=== PATIENT | male | born 1975 | race Caucasian/White ===

== ENCOUNTER 2019-05-19 10:07 | Emergency (ER) | payer OTHER, SELFPAY ==
[2019-05-19 10:11] VITALS: BMI 28.1
--- NOTE | 2019-05-19 10:11 | XR_ITS ---
WS: [id number] PORTABLE CHEST HISTORY: cough/congestion COMPARISON: None available. Lungs are clear and well expanded. No pleural effusion or pneumothorax. Cardiac size: Normal. Mediastinum/Aorta: Normal mediastinum. No osseous abnormality seen. XR/XR chest 1V portable [id number] IMPRESSION: Unremarkable portable chest.
[2019-05-19 10:15] VITALS: BP 158/104; PULSE 135; RESP 18; TEMP 37.2; O2SAT 98
--- NOTE | 2019-05-19 10:25 | W.ED.SOB ---
HPI - SOB/Dyspnea General: Chief Complaint: Shortness of Breath/Dyspnea Stated Complaint: FEVER, COUGH, SOB Time Seen by Provider: 05/19/19 10:10 Source: patient Mode of arrival: ambulatory Limitations: no limitations History of Present Illness: HPI Narrative: Patient is a 44-year-old male who presents to ED today with complaints of cough, chest congestion, shortness of breath with exertion over the past 3 to 4 days. Patient states he initially began feeling ill about a week and a half ago with some abdominal pain and diarrhea. He states the abdominal pain is completely subsided. He states diarrhea currently is minimal. He was running low-grade fevers of 100.1. Patient states slowly he began developing a productive cough with white/clear phlegm and shortness of breath with exertion. He has not had any sick contacts. No known travel exposure. Patient does work at [employer] in [place] and has contact exposure frequently. MD elicited complaint: shortness of breath and cough Onset (ago): day(s) Exacerbating factors: exertion Relieving factors: nothing Associated symptoms: Reports chest congestion, fever(s) (100.1 a few days ago) and nausea; Deny abdominal pain, chest pain, extremity pain, hemoptysis, lightheadedness, orthopnea, palpitations, syncope or vomiting Review of Systems General: Reports: 10 or more systems reviewed and unremarkable except in HPI and below Const: Reports: fever (100.1 a few days ago); Denies: chills, body aches, change in appetite, change in weight, fatigue, malaise or night sweats Eyes: Denies: change in vision, blurry vision or photophobia ENMT: Denies: throat pain, enlarged tonsils, painful swallowing, oral sores/lesions, ear pain, nasal discharge, nasal congestion or facial/sinus pain Card: Reports: shortness of breath on exertion; Denies: chest pain, palpitations, irregular heart rhythm, edema, swelling of feet/ankles, lightheadedness, syncope, pre-syncope, shortness of breath when lying down, leg pain with exertion or bluish discoloration of hands/feet Resp: Reports: shortness of breath (only with exertion ), productive cough (white phlegm) and chest congestion; Denies: wheezing, stridor, pain on inspiration or coughing up blood GI: Reports: nausea and diarrhea (improving ); Denies: abdominal pain or vomiting : Denies: flank pain, difficulty urinating, painful urination, urinary frequency, urinary urgency or urinary hesitancy Musc: Denies: neck pain, back pain, extremity pain, extremity swelling, joint pain or joint swelling Skin/Breast: Denies: rash Neuro: Denies: headache, numbness in extremities, weakness in extremities or changes in sensation PFSH ED PFSH: Social History Smoking and tobacco status: current every day smoker Physical Exam Const: COMMON NORMALS: no apparent distress, average body habitus, oriented x3, no limitations, healthy appearing, alert and well nourished HENMT: COMMON NORMALS: normocephalic, head/scalp atraumatic, EAC's normal, TM's normal bilaterally, nasal mucous membranes and turbinates normal and moist oral mucous membranes HEAD & SCALP: normocephalic and atraumatic FACE & SINUS: normal facial exam and sinuses nontender NOSE: nasal mucous membranes and turbinates normal EXTERNAL AUDITORY CANAL: EAC's normal TYMPANIC MEMBRANE: TM's normal bilaterally MOUTH: oral and palatal mucosa normal, lip normal and tongue normal THROAT: tonsils normal, uvula midline and posterior oropharynx abnormal erythema Eye: COMMON NORMALS: PERRL, EOMs intact bilaterally and conjunctivae normal CONJUNCTIVA: Yes conjunctivae normal PUPIL: Yes PERRL Neck/C-Spine: COMMON NORMALS: full ROM, no lymphadenopathy and no meningeal signs Resp: COMMON NORMALS: normal respiratory effort and clear to auscultation bilaterally AUSCULTATION: clear to auscultation bilaterally Cardio: COMMON NORMALS: regular rhythm RATE: tachycardic RHYTHM: regular rhythm GI: COMMON NORMALS: normal to inspection, nondistended, normoactive bowel sounds, soft to palpation, non-tender, no hepatosplenomegaly and no masses PALPATION: Yes soft and Yes no hepatosplenomegaly Extremity: COMMON NORMALS: normal to inspection Neuro: COMMON NORMALS: oriented x3 SENSORIUM/ORIENTATION: Yes alert MENINGEAL SIGNS: Yes no meningeal signs Skin: COMMON NORMALS: no rashes or lesions noted GENERAL SKIN EXAM: no rashes or lesions noted Course Vital Signs: Vital signs: Vital Signs Temperature 98.9 F 05/19/19 10:15 Pulse Rate 114 H 05/19/19 11:36 Respiratory Rate 16 05/19/19 11:36 Blood Pressure 144/88 05/19/19 11:36 Pulse Oximetry 98 05/19/19 11:36 MDM - SOB/Dyspnea MDM Narrative: Medical decision making narrative: Patient clinically appears well. He is not tachypneic and has no signs of labored breathing or respiratory distress. His CXR is normal. Influenza is negative. Labs with some nonspecific findings such as mild thrombocytopenia and elevated LFTs. He does state he has been told previously he has elevated LFTs. Patient is an everyday drinker. He elicits no abdominal tenderness on exam. These findings can also be seen with COVID-19. Patient was tested for this. He is already taking [facility]. at this time I do not see any indication for additional treatment. He has been tachycardic throughout his stay however this has improved with rest and fluids. Patient's Well Score is at low risk for PE. Strict return to ED precautions given. Discussed wearing a mask and self quarantine. Lab Data: Labs: Lab Results 05/19/19 05/19/19 05/19/19 Range/Units 10:16 10:20 10:20 WBC 10.3 H (4.0-10.0) 10^3/ uL RBC 4.51 (4.1-5.3) 10^6/u L Hgb 15.8 (11.7-16.6) g/dL Hct 47.2 (42.0-52.0) % MCV 104.7 H (80-94) fL MCH 35.0 H (28.0-34.0) pg MCHC 33.5 (30.0-36.0) g/dL RDW 14.7 (12.1-15.1) % Plt Count 101 L (130-400) 10^3/c mm MPV 10.0 (7.4-10.4) fL Neut % (Auto) 66.0 % Lymph % (Auto) 21.0 % Davison % (Auto) 10.6 % Eos % (Auto) 1.2 % Baso % (Auto) 0.8 % Neut # (Auto) 6.8 (1.8-7.7) 10^3/u L Lymph # (Auto) 2.2 (0.8-4.8) 10^3/u L Davison # (Auto) 1.1 H (0.2-0.9) 10^3/u L Eos # (Auto) 0.1 (0.0-0.8) 10^3/u L Baso # (Auto) 0.1 (0.0-0.1) 10^3/u L Nucleated RBC % (a uto) 0 % Nucleated RBCs # 0.0 /100WBC Sodium 139 (136-145) mmol/L Potassium 3.2 L (3.5-5.1) mmol/L Chloride 98 (98-107) mmol/L Carbon Dioxide 24 (22-29) mmol/L Anion Gap 20.2 H (5-19) BUN 3 L (6-20) mg/dL Creatinine 1.0 (0.7-1.2) mg/dL GFR Calculation 80.8 L (90-130) mL/min Glucose 119 H (65-115) mg/dL Calculated Osmolal ity 285 (285-295) mOsm/k g Calcium 9.4 (8.5-10.5) mg/dL Total Bilirubin 1.6 H (0.15-1.2) mg/dL AST 107 H (0-40) U/L ALT 50 H (0-41) U/L Alkaline Phosphata se 136 H (40-130) IU/L Total Protein 8.3 (6.6-8.7) g/dL Albumin 4.5 (3.5-5.2) g/dL Globulin 3.8 (1.3-4.6) g/dL Influenza Type A A g Negative (Negative) POC Influenza B Ag Negative (Negative) Imaging Data^: CXR: Radiologist's impression: [address] [address] XRay Report Signed Patient: Chase Rivero Unit #: [id number] : 1975 Age/Sex: 44 / M ADM Date: 05/19/19 Loc: ER Room/Bed: Attending Dr: Ordering Provider/Ordering MD: Opal Hanks Date of Service: 05/19/19 Procedure(s): XR chest 1V portable [id number] Accession Number(s): [id number] Report Number: [id number] WS: [id number] PORTABLE CHEST HISTORY: cough/congestion COMPARISON: None available. Lungs are clear and well expanded. No pleural effusion or pneumothorax. Cardiac size: Normal. Mediastinum/Aorta: Normal mediastinum. No osseous abnormality seen. XR/XR chest 1V portable [id number] IMPRESSION: Unremarkable portable chest. Dictated By: Kassie Montenegro DO Signed By: Kassie Montenegro DO Signed Date/Time: 05/19/19 1034 DD/ 1034 Discharge Plan Discharge Patient Disposition: Home, Self-Care Clinical Impression: Viral upper respiratory tract infection Condition: Stable Discharge Orders: Discharge Order (Routine); Ordered 05/19/19 Ordered By: Opal Hanks Referrals: Sherron Lewis APN [Family Provider] - Discharge Diet: Usual diet Discharge Activity: Increase activity as tolerated Patient Instructions: Upper Respiratory Infection (ED), Viral Syndrome (ED), Upper Respiratory Infection - Adult Activity Restrictions/Additional Instructions: 1) Push fluids at home. Water and/or Gatorade/Powerade to stay hydrated 2) Use Tylenol as needed for body aches/fevers 3) Rest/don't exert yourself if you feel short of breath 4) Contact C nurse line or return to ED for worsening shortness of breath, difficulty breathing, or any other concerns you may have. 5) SELF QUARANTINE at home for another week. WEAR A MASK IF YOU ABSOLUTELY MUST GO IN PUBLIC. Stand Alone Forms: Work/School Release Discharge Date/Time: 05/19/19 11:37 Coding Level of Care Code ED Toe Puller for Chg Fwd Exam Comprehensive
[2019-05-19 10:29] LABS: Basophils # 0.1 10^3/uL (0.0-0.1); Basophils % 0.8 %; Eosinophils # 0.1 10^3/uL (0.0-0.8); Eosinophils % 1.2 %; Hematocrit 47.2 % (42.0-52.0); Hemoglobin 15.8 g/dL (11.7-16.6); Lymphocytes # 2.2 10^3/uL (0.8-4.8); Mean Corpuscular HGB Conc 33.5 g/dL (30.0-36.0); Mean Corpuscular Volume 104.7 fL (80-94); Monocytes # 1.1 10^3/uL (0.2-0.9); Monocytes % 10.6 %; Neutrophils # 6.8 10^3/uL (1.8-7.7); Nucleated Red Blood Cells % 0 %; Platelet Count 101 10^3/cmm (130-400); Red Blood Count 4.51 10^6/uL (4.1-5.3); Red Cell Distribution Width 14.7 % (12.1-15.1); White Blood Count 10.3 10^3/uL (4.0-10.0)
[2019-05-19] MEDS: sodium chloride 0.9% 1,000 ML 999 ML IV (10:33)
--- NOTE | 2019-05-19 10:45 | ECG_ITS ---
Measurements Intervals [place] Rate: 107 P: 44 VA: 160 QRS: -19 QRSD: 97 T: 30 QT: 334 QTc: 446 SINUS TACHYCARDIA No previous ECG available for comparison Electronically Signed On 05-19-2019 18:32:44 CDT by Alexandra De Santiago M.D. [email or web address]
[2019-05-19 10:46] LABS: Alanine Aminotransferase 50 U/L (0-41); Albumin Level 4.5 g/dL (3.5-5.2); Alkaline Phosphatase 136 IU/L (40-130); Anion Gap 20.2 (5-19); Aspartate Amino Transferase 107 U/L (0-40); Blood Urea Nitrogen 3 mg/dL (6-20); Calcium 9.4 mg/dL (8.5-10.5); Carbon Dioxide 24 mmol/L (22-29); Chloride 98 mmol/L (98-107); Creatinine Clr Calc Pharmacy 98.4385; Globulin 3.8 g/dL (1.3-4.6); Glomerular Filtration Rate 80.8 mL/min (90-130); Glucose 119 mg/dL (65-115); Osmolality Calculated 285 mOsm/kg (285-295); Potassium 3.2 mmol/L (3.5-5.1); Sodium 139 mmol/L (136-145); Total Bilirubin 1.6 mg/dL (0.15-1.2); Total Protein 8.3 g/dL (6.6-8.7)
[2019-05-19 10:51] LABS: Influenza A by IFA Negative (Negative); Influenza B by IFA Negative (Negative)
--- NOTE | 2019-05-19 11:09 | PC.NURSE ---
Covid-19 swab collected and sent to lab.
[2019-05-19 11:36] VITALS: BP 144/88; PULSE 114; RESP 16; O2SAT 98
[2019-05-21 11:06] LABS: Coronavirus Overall Results NOT DETECTED
== END 2019-05-19 11:37 | disposition home or self-care (01) ==
PROVIDERS: Emergency Provider Physician Assistant; Family Provider Nurse Practitioner Family
DX: J06.9 Acute upper respiratory infection, unspecified (principal); F17.200 Nicotine dependence, unspecified, uncomplicated
CPT/HCPCS: 12345; 36415; 71045; 80053; 85025; 87635; 87804; 93005; 96360; 99282; 99283; J7030

== ENCOUNTER 2019-05-24 22:52 | Inpatient (IN) | payer OTHER, SELFPAY ==
[2019-05-24 23:14] VITALS: BP 146/92; PULSE 140; RESP 22; TEMP 37.3; O2SAT 98; BMI 28.5
--- NOTE | 2019-05-24 23:26 | ED_ITS ---
Documented by User: SHAKIRA Chiu 05/25/19 00:42 HPI - Abdominal Pain General: Chief Complaint: Abdominal Pain Stated Complaint: n/v/d Time Seen by Provider: 05/24/19 23:14 History of Present Illness: HPI narrative: Patient is a 44-year-old male who comes to the ED with abdominal pain, nausea, vomiting and diarrhea. All symptoms started around 11 AM this morning. He denies eating anything in the morning that caused symptoms. He has been having multiple episodes of vomiting and diarrhea since onset. Abdominal pain is all throughout his abdomen and he rates it a 5 out of 10. Frequently the abdominal pain has moments where it becomes more intense during that time he says it is around a 7 or 8 out of 10. Diarrhea is greenish-brown colored. He described his emesis color as brown. Denies any past abdominal surgeries, fevers, chills, blood in the stool or blood in the emesis. Patient states he has a mild headache. He has not been able to eat or drink anything all day. Patient also says he has been burping a lot today. Associated Symptoms: Reports belching, diarrhea, nausea and vomiting; Denies chills, constipation, dysuria, fever(s), hematochezia and hematuria Review of Systems Const: Denies: fever, chills or fatigue Eyes: Denies: change in vision or eye discomfort ENMT: Denies: throat pain, painful swallowing, nasal discharge or nasal congestion Card: Denies: chest pain, palpitations, edema, swelling of feet/ankles, shortness of breath on exertion or shortness of breath when lying down Resp: Denies: shortness of breath, productive cough or non-productive cough GI: Reports: abdominal pain, nausea, vomiting, diarrhea and belching; Denies: constipation or blood in stool : Denies: flank pain, difficulty urinating, painful urination or blood in urine Musc: Denies: neck pain, back pain or extremity swelling Skin/Breast: Denies: rash or new lesion Neuro: Reports: headache; Denies: numbness in extremities or weakness in extremities PFS ED PFSH: Social History Smoking and tobacco status: current every day smoker Physical Exam Narrative: EXAM NARRATIVE: Patient is lying on the exam bed when I enter the room. He appears to be in some pain and discomfort. Const: COMMON NORMALS: oriented x3 HENMT: COMMON NORMALS: normocephalic HEAD & SCALP: normocephalic MOUTH: oral and palatal mucosa normal THROAT: posterior oropharynx normal and uvula midline Neck/C-Spine: COMMON NORMALS: supple GENERAL: Yes normal visual inspection Resp: COMMON NORMALS: normal respiratory effort, no retractions, no use of accessory muscles and clear to auscultation bilaterally EFFORT & INSPECTION: Yes able to speak in complete sentences, No respiratory distress and No labored AUSCULTATION: clear to auscultation bilaterally Cardio: COMMON NORMALS: regular rhythm, S1 normal heart sound, S2 normal heart sound, no gallops, no clicks, no murmurs and peripheral pulses 2+ throughout RATE: tachycardic RHYTHM: regular rhythm HEART SOUNDS: S1 normal and S2 normal PERIPHERAL PULSES: pulses 2+ throughout GI: COMMON NORMALS: normal to inspection, nondistended, normoactive bowel sounds, soft to palpation and no masses AUSCULTATION: Yes normoactive bowel sounds PALPATION: Yes soft, Yes tender (throughout the abdomen- moderate tenderness) and No rebound tenderness present : BLADDER/KIDNEY EXAM: Yes CVA tenderness bilateral Back/Pelvis: GENERAL BACK: Yes CVA tenderness Extremity: COMMON NORMALS: normal to inspection and normal capillary refill Neuro: COMMON NORMALS: oriented x3 GAIT: Yes normal gait Skin: COMMON NORMALS: no rashes or lesions noted GENERAL SKIN EXAM: no rashes or lesions noted and dry skin Course Vital Signs: Vital signs: Vital Signs Temperature 99.1 F 05/24/19 23:14 Pulse Rate 138 H 05/25/19 00:40 Respiratory Rate 17 05/25/19 01:24 Blood Pressure 128/86 05/25/19 00:40 Pulse Oximetry 98 05/25/19 01:24 MDM - Abdominal Pain Lab Data: Attestation: I reviewed the patient's lab results. Labs: Lab Results 05/24/19 05/24/19 05/24/19 Range/Units 23:27 23:47 23:55 WBC 14.0 H (4.0-10.0) 10^3/ uL RBC 3.94 L (4.1-5.3) 10^6/u L Hgb 14.1 (11.7-16.6) g/dL Hct 41.0 L (42.0-52.0) % MCV 104.1 H (80-94) fL MCH 35.8 H (28.0-34.0) pg MCHC 34.4 (30.0-36.0) g/dL RDW 15.8 H (12.1-15.1) % Plt Count 87 L (130-400) 10^3/c mm MPV 11.4 H (7.4-10.4) fL Neut % (Auto) 76.3 % Lymph % (Auto) 11.8 % [place] % (Auto) 11.1 % Eos % (Auto) 0.1 % Baso % (Auto) 0.2 % Neut # (Auto) 10.7 H (1.8-7.7) 10^3/u L Lymph # (Auto) 1.6 (0.8-4.8) 10^3/u L [place] # (Auto) 1.6 H (0.2-0.9) 10^3/u L Eos # (Auto) 0.0 (0.0-0.8) 10^3/u L Baso # (Auto) 0.0 (0.0-0.1) 10^3/u L Nucleated RBC % (a uto) 0 % Nucleated RBCs # 0.0 /100WBC Sodium (136-145) mmol/L Potassium (3.5-5.1) mmol/L Chloride (98-107) mmol/L Carbon Dioxide (22-29) mmol/L Anion Gap (5-19) BUN (6-20) mg/dL Creatinine (0.7-1.2) mg/dL GFR Calculation (90-130) mL/min Glucose (65-115) mg/dL Calculated Osmolal ity (285-295) mOsm/k g Lactate 4.7 H* (0.5-2.2) mmol/L Calcium (8.5-10.5) mg/dL Total Bilirubin (0.15-1.2) mg/dL AST (0-40) U/L ALT (0-41) U/L Alkaline Phosphata se (40-130) IU/L Total Protein (6.6-8.7) g/dL Albumin (3.5-5.2) g/dL Globulin (1.3-4.6) g/dL Lipase (13-60) U/L Urine Color Yellow (Yellow) Urine Appearance Cloudy (CLEAR) Urine pH 5 (5-7) Ur Specific Gravit y 1.020 (1.005-1.030) Urine Protein Trace (Negative) Urine Glucose (UA) Trace H (Normal) Urine Ketones 1+ H (Negative) Urine Blood 2+ H (Negative) Urine Nitrate Negative (Negative) Urine Bilirubin Neg (NEGATIVE) Urine Urobilinogen Norm (Negative) mg/dL Ur Leukocyte Phoebe ase Negative (Negative) Urine RBC 0-4 H (0-2) /hpf Urine WBC 0-4 H (0-5) /hpf Ur Squamous Epith Cells 0-4 H (0-5) Urine Bacteria 1+ H (NONE) Urine Mucus 2+ 04/07/08 Range/Units 00:12 WBC (4.0-10.0) 10^3/ uL RBC (4.1-5.3) 10^6/u L Hgb (11.7-16.6) g/dL Hct (42.0-52.0) % MCV (80-94) fL MCH (28.0-34.0) pg MCHC (30.0-36.0) g/dL RDW (12.1-15.1) % Plt Count (130-400) 10^3/c mm MPV (7.4-10.4) fL Neut % (Auto) % Lymph % (Auto) % [place] % (Auto) % Eos % (Auto) % Baso % (Auto) % Neut # (Auto) (1.8-7.7) 10^3/u L Lymph # (Auto) (0.8-4.8) 10^3/u L [place] # (Auto) (0.2-0.9) 10^3/u L Eos # (Auto) (0.0-0.8) 10^3/u L Baso # (Auto) (0.0-0.1) 10^3/u L Nucleated RBC % (a uto) % Nucleated RBCs # /100WBC Sodium 137 (136-145) mmol/L Potassium 3.3 L (3.5-5.1) mmol/L Chloride 93 L (98-107) mmol/L Carbon Dioxide 28 (22-29) mmol/L Anion Gap 19.3 H (5-19) BUN 13 (6-20) mg/dL Creatinine 1.1 (0.7-1.2) mg/dL GFR Calculation 72.4 L (90-130) mL/min Glucose 124 H (65-115) mg/dL Calculated Osmolal ity 282 L (285-295) mOsm/k g Lactate (0.5-2.2) mmol/L Calcium 8.8 (8.5-10.5) mg/dL Total Bilirubin 3.7 H (0.15-1.2) mg/dL AST 93 H (0-40) U/L ALT 44 H (0-41) U/L Alkaline Phosphata se 121 (40-130) IU/L Total Protein 6.6 (6.6-8.7) g/dL Albumin 3.6 (3.5-5.2) g/dL Globulin 3.0 (1.3-4.6) g/dL Lipase 33 (13-60) U/L Urine Color (Yellow) Urine Appearance (CLEAR) Urine pH (5-7) Ur Specific Gravit y (1.005-1.030) Urine Protein (Negative) Urine Glucose (UA) (Normal) Urine Ketones (Negative) Urine Blood (Negative) Urine Nitrate (Negative) Urine Bilirubin (NEGATIVE) Urine Urobilinogen (Negative) mg/dL Ur Leukocyte Phoebe ase (Negative) Urine RBC (0-2) /hpf Urine WBC (0-5) /hpf Ur Squamous Epith Cells (0-5) Urine Bacteria (NONE) Urine Mucus Imaging Data ^: CT Abd/Pel: Attestation: I personally reviewed and interpreted this imaging study as follows: Radiologist's impression: [facility] [address] [address] [address] Scan Report Signed Patient: Chase Rivero Unit #: [id number] : 1975 Age/Sex: 44 / M ADM Date: 05/24/19 Loc: ER Room/Bed: Attending Dr: Ordering Provider/Ordering MD: Jamir Lindsay Date of Service: 05/24/19 Procedure(s): CT abdomen pelvis w con* [id number] Accession Number(s): [id number] Report Number: [id number] PROCEDURE INFORMATION: Exam: CT Abdomen And Pelvis With Contrast Exam date and time: 05/24/2019 11:45 PM Age: 44 years old Clinical indication: Nausea and vomiting; Abdominal pain; Generalized; Additional info: Abdom pain, n/v and diarrhea TECHNIQUE: Imaging protocol: Computed tomography of the abdomen and pelvis with intravenous contrast. Total DLP: 950.42 mGy-cm Radiation optimization: All CT scans at this facility use at least one of these dose optimization techniques: automated exposure control; mA and/or kV adjustment per patient size (includes targeted exams where dose is matched to clinical indication); or iterative reconstruction. Contrast material: OMNI 300; Contrast volume: 95 ml; Contrast route: IV; COMPARISON: CT abdomen pelvis w con* [id number] 06/08/2016 8:45 AM FINDINGS: Lungs: The lung bases are clear. Liver: There is fatty infiltration of the liver. Somewhat inhomogeneous enhancement of the liver. This could be related to the fatty infiltration. Hepatitis or other etiologies not excluded. Gallbladder and bile ducts: Mild gallbladder wall thickening/edema. No visible gallstones by CT. Ultrasound could be more sensitive for detecting gallstones, if clinically needed. No biliary tree dilation. Pancreas: Unremarkable. Spleen: Unremarkable. Adrenals: Unremarkable. Kidneys and ureters: Relatively small left kidney, not significantly changed. No hydronephrosis of either kidney. No visible ureteral calculus. Stomach and bowel: Mild to moderate diffuse mucosal/wall thickening involving essentially the entire colon. Mild pericolonic edema/inflammation. Suspect mild involvement of the terminal ileum as well. Some other small bowel loops may have some mucosal thickening, although this could be a transient appearance on CT. While nonspecific, this appearance is likely secondary to some form of colitis/enteritis, including infectious, ulcerative, Crohn's, and pseudomembranous colitis. There are no CT findings to strongly suggest diverticulitis. Possibility of slightly thickened mucosa/wall in the distal antrum of the stomach. This is a nonspecific appearance, and could be transient on CT, but could also represent evidence for gastritis or peptic ulcer disease. Please correlate clinically. Appendix: The appendix is visualized and appears normal. Intraperitoneal space: No free air, ascites, or bowel distention. Vasculature: No evidence for abdominal aortic aneurysm. Lymph nodes: No retroperitoneal adenopathy. Bladder: [id number] diffuse urinary bladder wall thickening. This may be related to the prostate enlargement. While nonspecific, this could also indicate evidence for cystitis. Please correlate clinically. Reproductive: Prostate enlargement with transverse diameter of 4.2 cm. Bones/joints: Moderate degenerative disc changes at L5-S1, similar to prior exam. Soft tissues: No significant acute finding. CT/CT abdomen pelvis w con* [id number] IMPRESSION: 1. Findings compatible with diffuse colitis, see additional details/discussion above. 2. No free air or significant bowel distention. 3. Possible thickened mucosa/wall in the distal stomach, see above discussion. 4. Mild gallbladder wall thickening/edema, no visible gallstones by CT. 5. Normal appendix. 6. Prostate enlargement and urinary bladder wall thickening, see above. 7. Other findings discussed above. Radiation Dose CTDIVOL = (mGy): DLP = 950.42 (mGy-cm) Dictated By: Edu Barrera MD Signed By: Edu Barrera MD Signed Date/Time: 05/25/1937 DD/ Discharge Plan Discharge Prescriptions: No Action No Known Home Medications RF: 0 Coding Level of Care Code ED Fuse Cup Expander for Chg Fwd Exam Comprehensive Documented by User: Danilo Mason DO 05/25/19 03:02 HPI - Abdominal Pain General: Chief Complaint: Abdominal Pain Stated Complaint: n/v/d Time Seen by Provider: 05/24/19 23:14 PFSH ED PFSH: Social History Smoking and tobacco status: current every day smoker Course Vital Signs: Vital signs: Vital Signs Temperature 99.1 F 05/24/19 23:14 Pulse Rate 138 H 05/25/19 00:40 Respiratory Rate 17 05/25/19 01:24 Blood Pressure 128/86 05/25/19 00:40 Pulse Oximetry 98 05/25/19 01:24 MDM - Abdominal Pain MDM Narrative: Medical decision making narrative: 44-year-old male checked out to me by Mr. Neftali PA-C. I agree with his history, evaluation, and initial work-up. This patient has right sided belly pain, vomiting, and diarrhea. CT scan showed some gallbladder wall thickening as well as a colitis. Ultrasound shows no common bile duct dilatation, but gallbladder wall edema with some sludge. His bilirubin is 3.7. He has mild elevation of his transaminases. His white blood cell count is 14. He will be treated for acute cholecystitis, colitis, and sepsis. He is received a fluid bolus here. He is also received ciprofloxacin and Flagyl IV. He will be placed on Zosyn for the floor. Lab Data: Labs: Lab Results 05/24/19 05/24/19 05/24/19 Range/Units 23:27 23:47 23:55 WBC 14.0 H (4.0-10.0) 10^3/ uL RBC 3.94 L (4.1-5.3) 10^6/u L Hgb 14.1 (11.7-16.6) g/dL Hct 41.0 L (42.0-52.0) % MCV 104.1 H (80-94) fL MCH 35.8 H (28.0-34.0) pg MCHC 34.4 (30.0-36.0) g/dL RDW 15.8 H (12.1-15.1) % Plt Count 87 L (130-400) 10^3/c mm MPV 11.4 H (7.4-10.4) fL Neut % (Auto) 76.3 % Lymph % (Auto) 11.8 % [place] % (Auto) 11.1 % Eos % (Auto) 0.1 % Baso % (Auto) 0.2 % Neut # (Auto) 10.7 H (1.8-7.7) 10^3/u L Lymph # (Auto) 1.6 (0.8-4.8) 10^3/u L [place] # (Auto) 1.6 H (0.2-0.9) 10^3/u L Eos # (Auto) 0.0 (0.0-0.8) 10^3/u L Baso # (Auto) 0.0 (0.0-0.1) 10^3/u L Nucleated RBC % (a uto) 0 % Nucleated RBCs # 0.0 /100WBC Sodium (136-145) mmol/L Potassium (3.5-5.1) mmol/L Chloride (98-107) mmol/L Carbon Dioxide (22-29) mmol/L Anion Gap (5-19) BUN (6-20) mg/dL Creatinine (0.7-1.2) mg/dL GFR Calculation (90-130) mL/min Glucose (65-115) mg/dL Calculated Osmolal ity (285-295) mOsm/k g Lactate 4.7 H* (0.5-2.2) mmol/L Calcium (8.5-10.5) mg/dL Total Bilirubin (0.15-1.2) mg/dL AST (0-40) U/L ALT (0-41) U/L Alkaline Phosphata se (40-130) IU/L Total Protein (6.6-8.7) g/dL Albumin (3.5-5.2) g/dL Globulin (1.3-4.6) g/dL Lipase (13-60) U/L Urine Color Yellow (Yellow) Urine Appearance Cloudy (CLEAR) Urine pH 5 (5-7) Ur Specific Gravit y 1.020 (1.005-1.030) Urine Protein Trace (Negative) Urine Glucose (UA) Trace H (Normal) Urine Ketones 1+ H (Negative) Urine Blood 2+ H (Negative) Urine Nitrate Negative (Negative) Urine Bilirubin Neg (NEGATIVE) Urine Urobilinogen Norm (Negative) mg/dL Ur Leukocyte Phoebe ase Negative (Negative) Urine RBC 0-4 H (0-2) /hpf Urine WBC 0-4 H (0-5) /hpf Ur Squamous Epith Cells 0-4 H (0-5) Urine Bacteria 1+ H (NONE) Urine Mucus 2+ 04/05/20 Range/Units 00:12 WBC (4.0-10.0) 10^3/ uL RBC (4.1-5.3) 10^6/u L Hgb (11.7-16.6) g/dL Hct (42.0-52.0) % MCV (80-94) fL MCH (28.0-34.0) pg MCHC (30.0-36.0) g/dL RDW (12.1-15.1) % Plt Count (130-400) 10^3/c mm MPV (7.4-10.4) fL Neut % (Auto) % Lymph % (Auto) % [place] % (Auto) % Eos % (Auto) % Baso % (Auto) % Neut # (Auto) (1.8-7.7) 10^3/u L Lymph # (Auto) (0.8-4.8) 10^3/u L [place] # (Auto) (0.2-0.9) 10^3/u L Eos # (Auto) (0.0-0.8) 10^3/u L Baso # (Auto) (0.0-0.1) 10^3/u L Nucleated RBC % (a uto) % Nucleated RBCs # /100WBC Sodium 137 (136-145) mmol/L Potassium 3.3 L (3.5-5.1) mmol/L Chloride 93 L (98-107) mmol/L Carbon Dioxide 28 (22-29) mmol/L Anion Gap 19.3 H (5-19) BUN 13 (6-20) mg/dL Creatinine 1.1 (0.7-1.2) mg/dL GFR Calculation 72.4 L (90-130) mL/min Glucose 124 H (65-115) mg/dL Calculated Osmolal ity 282 L (285-295) mOsm/k g Lactate (0.5-2.2) mmol/L Calcium 8.8 (8.5-10.5) mg/dL Total Bilirubin 3.7 H (0.15-1.2) mg/dL AST 93 H (0-40) U/L ALT 44 H (0-41) U/L Alkaline Phosphata se 121 (40-130) IU/L Total Protein 6.6 (6.6-8.7) g/dL Albumin 3.6 (3.5-5.2) g/dL Globulin 3.0 (1.3-4.6) g/dL Lipase 33 (13-60) U/L Urine Color (Yellow) Urine Appearance (CLEAR) Urine pH (5-7) Ur Specific Gravit y (1.005-1.030) Urine Protein (Negative) Urine Glucose (UA) (Normal) Urine Ketones (Negative) Urine Blood (Negative) Urine Nitrate (Negative) Urine Bilirubin (NEGATIVE) Urine Urobilinogen (Negative) mg/dL Ur Leukocyte Phoebe ase (Negative) Urine RBC (0-2) /hpf Urine WBC (0-5) /hpf Ur Squamous Epith Cells (0-5) Urine Bacteria (NONE) Urine Mucus Discharge Plan Discharge Prescriptions: No Action No Known Home Medications RF: 0 Coding Level of Care Code ED Fuse Cup Expander for Chg Fwd Exam Comprehensive
[2019-05-24] MEDS: ondansetron 2 mg/ML SDV 2 mL 4 MG IVP (23:32)
[2019-05-24] MEDS: sodium chloride 0.9% 1,000 ML 999 ML IV (23:33)
--- NOTE | 2019-05-24 23:43 | CTR_ITS ---
PROCEDURE INFORMATION: Exam: CT Abdomen And Pelvis With Contrast Exam date and time: 05/24/2019 11:45 PM Age: 44 years old Clinical indication: Nausea and vomiting; Abdominal pain; Generalized; Additional info: Abdom pain, n/v and diarrhea TECHNIQUE: Imaging protocol: Computed tomography of the abdomen and pelvis with intravenous contrast. Total DLP: 950.42 mGy-cm Radiation optimization: All CT scans at this facility use at least one of these dose optimization techniques: automated exposure control; mA and/or kV adjustment per patient size (includes targeted exams where dose is matched to clinical indication); or iterative reconstruction. Contrast material: OMNI 300; Contrast volume: 95 ml; Contrast route: IV; COMPARISON: CT abdomen pelvis w con* [id number] 06/08/2016 8:45 AM FINDINGS: Lungs: The lung bases are clear. Liver: There is fatty infiltration of the liver. Somewhat inhomogeneous enhancement of the liver. This could be related to the fatty infiltration. Hepatitis or other etiologies not excluded. Gallbladder and bile ducts: Mild gallbladder wall thickening/edema. No visible gallstones by CT. Ultrasound could be more sensitive for detecting gallstones, if clinically needed. No biliary tree dilation. Pancreas: Unremarkable. Spleen: Unremarkable. Adrenals: Unremarkable. Kidneys and ureters: Relatively small left kidney, not significantly changed. No hydronephrosis of either kidney. No visible ureteral calculus. Stomach and bowel: Mild to moderate diffuse mucosal/wall thickening involving essentially the entire colon. Mild pericolonic edema/inflammation. Suspect mild involvement of the terminal ileum as well. Some other small bowel loops may have some mucosal thickening, although this could be a transient appearance on CT. While nonspecific, this appearance is likely secondary to some form of colitis/enteritis, including infectious, ulcerative, Crohn's, and pseudomembranous colitis. There are no CT findings to strongly suggest diverticulitis. Possibility of slightly thickened mucosa/wall in the distal antrum of the stomach. This is a nonspecific appearance, and could be transient on CT, but could also represent evidence for gastritis or peptic ulcer disease. Please correlate clinically. Appendix: The appendix is visualized and appears normal. Intraperitoneal space: No free air, ascites, or bowel distention. Vasculature: No evidence for abdominal aortic aneurysm. Lymph nodes: No retroperitoneal adenopathy. Bladder: [id number] diffuse urinary bladder wall thickening. This may be related to the prostate enlargement. While nonspecific, this could also indicate evidence for cystitis. Please correlate clinically. Reproductive: Prostate enlargement with transverse diameter of 4.2 cm. Bones/joints: Moderate degenerative disc changes at L5-S1, similar to prior exam. Soft tissues: No significant acute finding. CT/CT abdomen pelvis w con* [id number] IMPRESSION: 1. Findings compatible with diffuse colitis, see additional details/discussion above. 2. No free air or significant bowel distention. 3. Possible thickened mucosa/wall in the distal stomach, see above discussion. 4. Mild gallbladder wall thickening/edema, no visible gallstones by CT. 5. Normal appendix. 6. Prostate enlargement and urinary bladder wall thickening, see above. 7. Other findings discussed above. Radiation Dose CTDIVOL = (mGy): DLP = 950.42 (mGy-cm)
[2019-05-24] MEDS: iohexol 300 mg/mL 100 mL Btl IV (23:51)
[2019-05-24 23:59] LABS: Basophils % 0.2 %; Eosinophils % 0.1 %; Hemoglobin 14.1 g/dL (11.7-16.6); Lymphocytes # 1.6 10^3/uL (0.8-4.8); Lymphocytes % 11.8 %; Mean Corpuscular HGB Conc 34.4 g/dL (30.0-36.0); Mean Corpuscular Hemoglobin 35.8 pg (28.0-34.0); Mean Corpuscular Volume 104.1 fL (80-94); Mean Platelet Volume 11.4 fL (7.4-10.4); Monocytes # 1.6 10^3/uL (0.2-0.9); Monocytes % 11.1 %; Neutrophils # 10.7 10^3/uL (1.8-7.7); Neutrophils % 76.3 %; Nucleated Red Blood Cells % 0 %; Platelet Count 87 10^3/cmm (130-400); Red Blood Count 3.94 10^6/uL (4.1-5.3); Red Cell Distribution Width 15.8 % (12.1-15.1)
[2019-05-25] VITALS (11 sets, daily range): BP systolic 108–148; BP diastolic 66–86; PULSE 85–138; RESP 14–18; TEMP 36.7–37.1; O2SAT 96–100
[2019-05-25] MEDS: morphine 4 mg/mL SDV 1 mL IVP ×3 (00:17→03:18)
[2019-05-25 00:26] LABS: Lactate (Lactic Acid level) 4.7 mmol/L (0.5-2.2)
[2019-05-25 00:44] LABS: Alanine Aminotransferase 44 U/L (0-41); Albumin Level 3.6 g/dL (3.5-5.2); Alkaline Phosphatase 121 IU/L (40-130); Anion Gap 19.3 (5-19); Aspartate Amino Transferase 93 U/L (0-40); Blood Urea Nitrogen 13 mg/dL (6-20); Calcium 8.8 mg/dL (8.5-10.5); Carbon Dioxide 28 mmol/L (22-29); Chloride 93 mmol/L (98-107); Glomerular Filtration Rate 72.4 mL/min (90-130); Glucose 124 mg/dL (65-115); Lipase 33 U/L (13-60); Osmolality Calculated 282 mOsm/kg (285-295); Potassium 3.3 mmol/L (3.5-5.1); Sodium 137 mmol/L (136-145); Total Bilirubin 3.7 mg/dL (0.15-1.2); Total Protein 6.6 g/dL (6.6-8.7)
[2019-05-25] MEDS: metroNIDAZOLE IV 500 MG/100 ML PREMIX 100 MG IV (01:12)
[2019-05-25] MEDS: sodium chloride 0.9% 1,000 ML 999 ML IV (01:16)
[2019-05-25 01:21] LABS: Bacteria Urine 1+; Bilirubin Urine Neg (NEGATIVE); Blood Urine 2+ (Negative); Glucose Urine UA Trace (Normal); Ketones Urine 1+ (Negative); Leukocyte Esterase Urine Negative (Negative); Mucus Urine 2+; Nitrate Urine Negative (Negative); Protein Urine Trace (Negative); RBC Urine 0-4 /hpf (0-2); Squamous Epithelial Cell Urine 0-4 (0-5); Urine Appearance Cloudy (CLEAR); Urine Color Yellow (Yellow); Urobilinogen Urine Norm (Negative); WBC Urine 0-4 /hpf (0-5); pH Urine 5 (5-7)
[2019-05-25] MEDS: ondansetron 2 mg/ML SDV 2 mL 4 MG IVP ×4 (01:25→21:14)
[2019-05-25] MEDS: ciprofloxacin 400 MG/200 ML PREMIX 200 MG IV (01:27)
--- NOTE | 2019-05-25 01:48 | USR_ITS ---
PROCEDURE INFORMATION: Exam: US Abdomen Limited, Right Upper Quadrant Exam date and time: 05/25/2019 1:49 AM Age: 44 years old Clinical indication: Abdominal pain; Additional info: Ruq pain TECHNIQUE: Imaging protocol: Real-time ultrasound of the abdomen with image documentation. Examination was focused on the right upper quadrant. COMPARISON: US gall bladder [id number] 09/13/2016 9:32 AM FINDINGS: Liver: Somewhat increased and inhomogeneous echogenicity of the liver may indicate fatty infiltration. Hepatitis and other etiologies not excluded. No definite focal hepatic abnormality. Gallbladder: Moderate amount of apparent biliary sludge in the gallbladder. No definite cholelithiasis/shadowing gallstones. Moderate gallbladder wall thickening, measuring up to almost 6 mm. Gallbladder wall thickening is often a nonspecific finding. Possible etiologies include acute and chronic cholecystitis, as well as hepatitis, hyperplastic cholecystoses, and various conditions with low serum protein. Clinical correlation needed. A nuclear medicine hepatobiliary scan can be useful to evaluate for cystic duct obstruction if there is suspicion for cholecystitis. No definite pericholecystic fluid. The gallbladder appears borderline/mildly distended, transverse diameter up to 4.3 cm. Common bile duct: No biliary dilation, common duct measures 4.9 mm. Pancreas: Visible pancreas unremarkable. Right kidney: Images of the right kidney show no hydronephrosis. US/US gall bladder [id number] IMPRESSION: 1. Moderate amount of biliary sludge in the gallbladder. 2. No definite cholelithiasis. 3. Moderate gallbladder wall thickening, see above. 4. No biliary tree dilation. 5. Other findings discussed above.
--- NOTE | 2019-05-25 02:57 | P.HP_ITS ---
Providers/Chief Complaint Chief Complaint: n/v/d History of Present Illness Chase Rivero is a 44 year old male came in with chief complaint of abdominal pain. Patient is stating that about a week ago he was treated with azithromycin for his upper respiratory tract infection, coronavirus testing was negative, today when he woke up around 8 AM he started experiencing abdominal cramps which got worse around 11 AM, he went to bathroom to have a bowel movement, he started experiencing profuse diarrhea along vomiting. He has had more than 10 episodes of vomiting and diarrhea since 11 AM yesterday, he feels extremely dehydrated, he checked his temperature, T-max was 99, he would describe his abdominal discomfort as indigestion and discomfort around epigastric area and right lower quadrant. He did not notice any blood in his vomitus but his stool color is dark without fresh red blood. Patient had similar complaint in 2017, when he underwent colonoscopy, biopsy did not show any ulcerative colitis or Crohn disease changes however multiple polyps were removed 1 rectal polyp showed moderate dysplasia. Patient drinks whiskey every day, smokes 1 pack/day. Does not use NSAIDs or aspirin on daily basis, no previous history of HIV or hepatitis. No recent traveling. His recent antibiotic was azithromycin. Diagnostics in ER revealed sepsis, leukocytosis, tachycardia, afebrile, CT abdomen reveals diffuse colitis involving terminal ileum He has been given ciprofloxacin and Flagyl and fluid resuscitation, multiple dose of morphine, I have ordered C. difficile, Review of Systems Const: Reports: chills, body aches and fatigue; Denies: fever Eyes: Denies: change in vision ENMT: Denies: throat pain Card: Denies: chest pain or palpitations Resp: Denies: shortness of breath GI: Reports: abdominal pain, nausea, vomiting, diarrhea, rectal pain, change in stool character and blood in stool : Denies: flank pain or difficulty urinating Musc: Denies: neck pain Skin/Breast: Denies: rash Neuro: Denies: headache Psych: Denies: anxiety Endo: Denies: excessive urination Wu/Lymph: Denies: easy bruising All/Imm: Denies: hives Medications/Allergies Home Medications Medication Instructions Recorded Confirmed Last Taken Type No Known Home Medications 05/24/19 05/24/19 Unknown History Allergies Allergy/AdvReac Type Severity Reaction Status Date / Time No Known Allergies Allergy Verified 05/19/19 10:15 PFSH Acute PFSH: Medical History Abnormal colonoscopy Rectal polyp 10 and 15 cm, cecum biopsy Sigmoid colon polyp Sigmoid colon hyperplastic polyp without atypia Rectal serrated adenomatous polyp 10 cm 15 cm polyp in rectum showing adenomatous low-grade dysplasia Enterocolitis 2017 Fatty liver Seasonal allergies Splenomegaly Surgical History H/O left inguinal hernia repair Vasectomy status Family History (Updated 05/25/19 @ 03:52 by Mayra Cook MD) Denies family history of Cancer Social History (Updated 05/25/19 @ 03:52 by Mayra Cook MD) Smoking and tobacco status: heavy tobacco smoker cigarettes [ Other cigarette details: [id number] history, 1 pack/day ] Alcohol intake: current Alcohol use comment: Drinks whiskey 3-4 drinks every day Substance/Drug Use: never Lives independently: Yes Housing: House Marital status: Single Current occupational status: employed Vitals/I&O/Wt Last Vital Signs Temp 99.1 F 05/24/19 23:14 Pulse 138 H 05/25/19 00:40 Resp 17 05/25/19 01:24 BP 128/86 05/25/19 00:40 Pulse Ox 98 05/25/19 01:24 Weight last 48 hrs Weight 85.275 kg Physical Exam Narrative: EXAM NARRATIVE: Young male lying comfortable in his bed recently ca me out of restroom after having one episode of diarrhea, stool sample was not collected in ER S1, S2, sinus tachycardia Systolic blood pressure 130 Lungs are clear to auscultation Abdomen soft, mild tenderness on deep palpation around epigastric region and right lower quadrant, no signs of peritonitis, bowel sounds sluggish Neurologically nonfocal exam Appropriate grooming No signs of ischemia gangrene ulcer of lower extremities Patient seems dehydrated, dry buccal mucous membrane Appropriate mood and affect EOMI, PERRLA Data : 05/24/19 23:27 05/25/19 00:12 Micro: Microbiology 05/24/19 23:50 Blood Culture - Preliminary Blood SPECIMEN COLLECTED 05/24/19 23:47 Blood Culture - Preliminary Blood SPECIMEN COLLECTED A&P Assessment and plan (1) Colitis: Status: Acute (2) Alcohol abuse: Status: Acute (3) Sepsis: Status: Acute (4) Smoker: Status: Acute Additional A&P Information Sepsis secondary to colitis Sepsis criteria met with tachycardia, leukocytosis, high lactic acid This is his second episode of enterocolitis in 3 years Recently he has used azithromycin for upper respiratory tract infection Most likely he also has component of alcohol induced gastritis We will check C. difficile panel, stool culture N.p.o., LR maintenance fluid, Zosyn antibiotic He is extremely dehydrated secondary to recurrent emesis No previous history of ulcerative colitis or Crohn disease pathological findings on biopsy taken in 2017 He might benefit from small bowel biopsy because of ileum involvement, no urgent need of endoscopy, this could be done on elective basis Low risk for ischemic colitis, will monitor on telemetry for any abnormal heart rhythm, patient is stating that about 20 years ago he had an episode of A. fib which resolved on its own and he never required any medical treatment since then Thrombocytopenia most likely due to alcohol abuse Would avoid using any anticoagulation for DVT prophylaxis at the moment, Patient is endorsing dark-colored stool, hemoglobin is stable Hypokalemia secondary to emesis: Repleted Alcohol abuse: Never had withdrawal symptoms, patient is trying to cut down on his alcohol intake, Ativan as needed use, will check blood alcohol level, last drink was yesterday Active smoker: Counseled on smoking cessation Agreeable for cessation currently does not require nicotine replacement therapy Full code DVT prophylaxis: Would avoid for now because of thrombocytopenia, will use SCDs Attestations Medical Necessity Statement*: Anticipating stay in the hospital to cross more than 2 midnights currently has diffuse colitis with sepsis, Time Spent in Patient Care: 50 Coding Level of Care Code Acute Geoscience Specialist for Jess López Diagnoses Colitis K52.9 Alcohol abuse F10.10 Sepsis A41.9 Smoker F17.200
[2019-05-25] MEDS: lactated ringers 1,000 ML 125 ML IV ×3 (05:05→21:13)
[2019-05-25] MEDS: pantoprazole 40 mg SDV IVP ×2 (05:05→17:54)
[2019-05-25] MEDS: potassium chloride premix 40 MEQ/100 ML PREMIX 25 MEQ IV ×2 (05:22→05:26)
[2019-05-25] MEDS: HYDROmorphone 1 mg/mL INJ 1 mL IVP (05:22)
[2019-05-25] MEDS: lidocaine 1% INJ 20 mL 5 ML IV (05:26)
[2019-05-25 07:35] LABS: Lactic Acid level (Lactate) 3.9 mmol/L (0.5-2.2)
[2019-05-25 07:53] LABS: Basophils % 0.3 %; Eosinophils # 0.1 10^3/uL (0.0-0.8); Eosinophils % 0.5 %; Hematocrit 34.7 % (42.0-52.0); Hemoglobin 11.6 g/dL (11.7-16.6); Lymphocytes # 2.4 10^3/uL (0.8-4.8); Lymphocytes % 19.2 %; Mean Corpuscular HGB Conc 33.4 g/dL (30.0-36.0); Mean Corpuscular Hemoglobin 35.7 pg (28.0-34.0); Mean Corpuscular Volume 106.8 fL (80-94); Mean Platelet Volume 10.9 fL (7.4-10.4); Monocytes # 1.4 10^3/uL (0.2-0.9); Monocytes % 11.4 %; Neutrophils # 8.3 10^3/uL (1.8-7.7); Nucleated Red Blood Cells % 0 %; Platelet Count 76 10^3/cmm (130-400); Red Blood Count 3.25 10^6/uL (4.1-5.3); White Blood Count 12.2 10^3/uL (4.0-10.0)
[2019-05-25 08:01] LABS: Alanine Aminotransferase 43 U/L (0-41); Albumin Level 3.5 g/dL (3.5-5.2); Alkaline Phosphatase 122 IU/L (40-130); Anion Gap 17.5 (5-19); Aspartate Amino Transferase 91 U/L (0-40); Blood Urea Nitrogen 15 mg/dL (6-20); Calcium 8.3 mg/dL (8.5-10.5); Carbon Dioxide 28 mmol/L (22-29); Chloride 101 mmol/L (98-107); Globulin 2.8 g/dL (1.3-4.6); Glomerular Filtration Rate 80.8 mL/min (90-130); Glucose 119 mg/dL (65-115); Osmolality Calculated 293 mOsm/kg (285-295); Potassium 3.5 mmol/L (3.5-5.1); Sodium 143 mmol/L (136-145); Total Bilirubin 3.1 mg/dL (0.15-1.2); Total Protein 6.3 g/dL (6.6-8.7)
[2019-05-25] MEDS: piperacillin-tazobactam 3.375 GM in sodium chloride 0.9% (plus) 50 ML IV ×2 (08:59→17:54)
--- NOTE | 2019-05-25 09:30 | PM.CONSULT ---
Providers/Reason For Consult Consulting Physican/Specialty*: Dr. Alexander Reason for Consult*: Ministerio Martinez Attending Physician: Ilia Alexander MD History of Present Illness History of Present Illness Chase Rivero is a 44 year old male presented to the ER with abdominal pain which started yesterday associated with nausea and vomiting. Patient states that he has been having loose stools but he has been having black stools for over a week. He was treated with erythromycin for upper respiratory infection, his cover test had been negative. He states that he had similar episodes a few years ago when he had a EGD and colonoscopy. He states that he drinks about 5 to 6 glasses of whiskey every day. No recent history of NSAID abuse Review of Systems General: Reports: 10 or more systems reviewed and unremarkable except in HPI and below Meds/Allergies Home Medications and Allergies Home Medications Medication Instructions Recorded Confirmed Type No Known Home Medications 05/24/19 05/24/19 History Allergies Allergy/AdvReac Type Severity Reaction Status Date / Time No Known Allergies Allergy Verified 05/19/19 10:15 Current Medications Current Medications Generic Name Dose Route Start Last Admin Trade Name Freq PRN Reason Stop Dose Admin Folic Acid 1 mg 05/25/19 09:00 05/25/19 08:58 Folic Acid PO Not Given DAILY CHRIS Hydromorphone HCl 1 mg 05/25/19 05:04 05/25/19 05:22 Dilaudid Inj IVP 1 mg Q4H PRN Administration PAIN Lactated Ringer's 1,000 mls @ 125 mls/hr 05/25/19 04:13 05/25/19 05:05 Lactated Ringers IV 125 mls/hr .Q8H CHRIS Administration Piperacillin Sod/Tazobactam 50 mls @ 12.5 mls/hr 05/25/19 04:30 05/25/19 08:59 Sod 3.375 gm/ Sodium Chloride IV 12.5 mls/hr Q8H CHRIS Administration Protocol Multivitamins Therapeutic 1 tab 05/25/19 09:00 05/25/19 08:58 Multivitamin Tab PO Not Given DAILY CHRIS Pantoprazole Sodium 40 mg 05/25/19 04:15 05/25/19 05:05 Protonix IVP 40 mg Q12H CHRIS Administration PFSH Acute PFSH: Medical History Enterocolitis 2017 History of colon polyps Rectal polyp 10 and 15 cm, cecum biopsy Sigmoid colon polyp Seasonal allergies Splenomegaly Surgical History H/O esophagogastroduodenoscopy H/O left inguinal hernia repair Status post colonoscopy with polypectomy Vasectomy status Family History Denies family history of Cancer Social History Smoking and tobacco status: heavy tobacco smoker cigarettes [ Other cigarette details: 10-[id number]-ccom history, 1 pack/day ] Alcohol intake: current Alcohol use comment: Drinks whiskey 3-4 drinks every day Substance/Drug Use: never Lives independently: Yes Housing: House Marital status: Single Current occupational status: employed Vitals/I&O/Wt Last Vital Signs Temp 98.1 F 05/25/19 07:47 Pulse 98 05/25/19 07:47 Resp 18 05/25/19 07:47 BP 129/73 05/25/19 07:47 Pulse Ox 96 05/25/19 07:47 05/24/19 05/25/19 05/25/19 22:59 06:59 14:59 Intake Total 0 / 0 Output Total 800 / 850 50 / 50 Balance -800 / -850 -50 / -50 Weight last 48 hrs Weight 188 lb Physical Exam Narrative: EXAM NARRATIVE: HEENT: Normocephalic Eye: Sclera /conjunctiva normal Respiratory and chest: Bilateral clear breath sounds on auscultation Cardiovascular: Normal S1 and S2 heart sounds Abdomen: Soft to palpation Neurological: Oriented to place person and time Skin: Intact, no lesions appreciated on gross exam Data Micro: Micro: Microbiology 05/24/19 23:50 Blood Culture - Pr eliminary Blood SPECIMEN [facility] 05/24/19 23:47 Blood Culture - Pr eliminary Blood SPECIMEN [facility] A&P Assessment and plan (1) Hematemesis: 44-year-old gentleman with history of daily alcohol consumption who presents with melena followed by episodes of hematemesis today. At present he is hemodynamically stable and his hemoglobin is 11.6. 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
--- NOTE | 2019-05-25 12:20 | PM.PN ---
Subjective Subjective: Interval history: Patient continues to have melanotic stool and had episode of hematemesis this morning. Reports drinking at least 5 whiskey drinks per day for a long period of time. Denies previous diagnosis of cirrhosis or hematemesis. Does not appear to have evidence of varices on CT scan but there is what appears alcohol induced gastritis. He denies taking any steroid/NSAIDs recently and last use was very long time ago. Vitals/I&O/Wt Last Vital Signs Temp 98.1 F 05/25/19 07:47 Pulse 98 05/25/19 07:47 Resp 18 05/25/19 07:47 BP 129/73 05/25/19 07:47 Pulse Ox 96 05/25/19 07:47 05/24/19 05/25/19 05/25/19 22:59 06:59 14:59 Intake Total 0 / 0 885.417 / 885.417 Output Total 800 / 800 50 / 50 Balance -800 / -800 835.417 / 835.417 Weight last 48 hrs Weight 85.275 kg Physical Exam Const: COMMON NORMALS: no apparent distress and oriented x3 Resp: COMMON NORMALS: normal respiratory effort and clear to auscultation bilaterally AUSCULTATION: clear to auscultation bilaterally Cardio: COMMON NORMALS: regular rate, regular rhythm and S2 normal heart sound RATE: regular rate RHYTHM: regular rhythm HEART SOUNDS: S2 normal OTHER: No lower extremity edema GI: COMMON NORMALS: normal to inspection, nondistended, normoactive bowel sounds and soft to palpation PALPATION: Yes soft and Yes tender (Mostly left upper quadrant) Neuro: COMMON NORMALS: oriented x3 and no focal motor deficits Data : 05/25/19 07:28 05/25/19 07:28 Micro: Microbiology 05/24/19 23:50 Blood Culture - Preliminary Blood SPECIMEN COLLECTED 05/24/19 23:47 Blood Culture - Preliminary Blood SPECIMEN COLLECTED A&P Assessment and plan (1) Colitis: Status: Acute (2) Alcohol abuse: Status: Acute (3) Sepsis: Status: Acute (4) Smoker: Status: Acute Additional A&P Information Sepsis secondary to colitis Sepsis criteria met with tachycardia, leukocytosis, high lactic acid Hematemesis. Alcohol use gastritis Alcohol induced fatty liver disease. Thrombocytopenia most likely due to alcohol abuse Would avoid using any anticoagulation for DVT prophylaxis at the moment, Upper GI bleed. Hypokalemia secondary to emesis: Repleted Alcohol abuse: Never had withdrawal symptoms, patient is trying to cut down on his alcohol intake, Ativan as needed use, will check blood alcohol level, last drink was yesterday Active smoker: Counseled on smoking cessation Agreeable for cessation currently does not require nicotine replacement therapy PLAN: Discussed with Dr. Frias who evaluated patient earlier today and we will proceed with upper endoscopy tomorrow morning. Continue high-dose PPI and antibiotic for treatment of colitis. I have discussed with patient regarding importance of alcohol abstinence and smoking cessation. Patient voiced understanding and reports that this is likely a good opportunity for him to quit drinking again. Full code DVT prophylaxis: Would avoid for now because of thrombocytopenia, will use SCDs Attestations Medical Necessity Statement*: Patient with upper GI bleed requires close inpatient monitoring, evaluation and treatment. Coding Level of Care Code Acute Production Assembly Operator for Jess Porterd Diagnoses Colitis K52.9 Alcohol abuse F10.10 Sepsis A41.9 Smoker F17.200
--- NOTE | 2019-05-25 12:33 | PM.OP ---
Operative Report Date of procedure: May 25, 2019 Pre-op Diagnosis: Dry gangerene left foot Post-op Diagnosis: Wound #1: 4 x 3 cm wound plantar aspect of the left foot Wound #2: 2 x 2 centimeter wound dorsal aspect of left foot Wound #3: 5 x 2 cm wound medial aspect of left foot Wound #4: 1 x 1 cm wound left great toe Procedure Done: Excisional debridement of wound #1: 4 x 3 cm wound plantar aspect of the left foot using 15 blade Excisional debridement of wound #2: 2 x 2 centimeter wound dorsal aspect of left foot using 15 blade Excisional debridement of wound #3: 5 x 2 cm wound medial aspect of left foot using 15 blade Excisional debridement of wound #4: 1 x 1 cm wound left great toe using 15 blade Specimens removed/disposition: Skin and subcutaneous tissue sent for cultures and pathology Surgeon: Haile Frias Anesthesia: MAC Estimated blood loss (mL): 25 Condition: stable Disposition: PACU Procedure: The patient was taken to the operating room and placed under MAC after IV antibiotic had been administered and the left foot was prepped and draped in a sterile manner. Using 15 blade excisional debridement of necrotic skin and subcutaneous tissue was performed on multiple areas of dry gangrene on the left foot resulting in 4 wounds as described below Wound #1: 4 x 3 cm wound plantar aspect of the left foot Wound #2: 2 x 2 centimeter wound dorsal aspect of left foot Wound #3: 5 x 2 cm wound medial aspect of left foot Wound #4: 1 x 1 cm wound left great toe Wound was irrigated with saline, hemostasis ensured and Surgicel was placed and wounds were covered with Telfa, 4 x 4 gauze and Kerlix. The patient was transferred to recovery room in stable condition.
--- NOTE | 2019-05-25 20:11 | ANES.PREANE2 ---
Pre-Anesthetic Assessment Pre-Anesthetic Assessment: Height/Weight: Height 1.73 m Weight 85.275 kg Temp Pulse Resp BP Pulse Ox 98.2 F 85 18 108/69 96 05/25/19 16:00 05/25/19 16:00 05/25/19 16:00 05/25/19 16:00 05/25/19 16:00 Preop Diagnosis: hematemsis Proposed Procedure: EGD Familial anesthetic complications: None Was Beta [place] taken within 24 hours: N/A Social: Social History: Alcohol (4-5 whiskey drinks a day; denies hx of withdrawal seizures) and Tobacco (1 ppd) Exam: Pre-Anes Outpt Exam: alert, oriented x 3, clear to auscultation bilaterally and regular rate & rhythm Airway: Cervical ROM: WNL MP: 3 Dentition: Chipped Pulmonary: Pulmonary: None reported CV/HEM: CV/HEM: Afib (20 years ago in [place]; self converted) : : None reported Hepatic: Comments: increased LFTs GI: Comments: hematemesis Metabolic: Metabolic: None reported Musc/skel: Musc/skel: None reported Neuropsych: Neuropsych: None reported Anesthetic Plan: ASA status: 2 Anesthesia: MAC Risk of > 500 ml blood loss (7ml/kg in children): No Meds/Allergies Current Medications: Current Medications Generic Name Dose Route Start Last Admin Trade Name Freq PRN Reason Stop Dose Admin Folic Acid 1 mg 05/25/19 09:00 05/25/19 08:58 Folic Acid PO Not Given DAILY CHRIS Hydromorphone HCl 1 mg 05/25/19 05:04 05/25/19 05:22 Dilaudid Inj IVP 1 mg Q4H PRN Administration PAIN Lactated Ringer's 1,000 mls @ 125 m ls/hr 05/25/19 04:13 05/25/19 12:10 Lactated Ringers IV 125 mls/hr .Q8H CHRIS Administration Piperacillin Sod/T azobactam 50 mls @ 12.5 mls /hr 05/25/19 04:30 05/25/19 17:54 Sod 3.375 gm/ So dium Chloride IV 12.5 mls/hr Q8H CHRIS Administration Protocol Sodium Chloride 1,000 mls @ 30 ml s/hr 05/25/19 09:31 05/25/19 17:53 Sodium Chloride 0.9% IV 05/26/19 09:30 Not Given .Q24H ONE Multivitamins Ther apeutic 1 tab 05/25/19 09:00 05/25/19 08:58 Multivitamin Tab PO Not Given DAILY CHRIS Pantoprazole Sodiu m 40 mg 05/25/19 04:15 05/25/19 17:54 Protonix IVP 40 mg Q12H CHRIS Administration PFSH Anesthesia PFSH: Medical History Enterocolitis 2017 History of colon polyps Rectal polyp 10 and 15 cm, cecum biopsy Sigmoid colon polyp Seasonal allergies Splenomegaly Surgical History H/O esophagogastroduodenoscopy H/O left inguinal hernia repair Status post colonoscopy with polypectomy Vasectomy status Family History Denies family history of Cancer Social History Smoking and tobacco status: heavy tobacco smoker cigarettes [ Other cigarette details: 90-[id number]-iccr history, 1 pack/day ] Alcohol intake: current Alcohol use comment: Drinks whiskey 3-4 drinks every day Substance/Drug Use: never Lives independently: Yes Housing: House Marital status: Single Current occupational status: employed Data Anesthesia CBC & Chem 7: 05/25/19 07:28 05/25/19 07:28 Other Labs: Laboratory Results - last 48 hr 05/24/19 05/24/19 05/24/19 23:27 23:47 23:55 WBC 14.0 H RBC 3.94 L Hgb 14.1 Hct 41.0 L MCV 104.1 H MCH 35.8 H MCHC 34.4 RDW 15.8 H Plt Count 87 L MPV 11.4 H Neut % (Auto) 76.3 Lymph % (Auto) 11.8 [place] % (Auto) 11.1 Eos % (Auto) 0.1 Baso % (Auto) 0.2 Neut # (Auto) 10.7 H Lymph # (Auto) 1.6 [place] # (Auto) 1.6 H Eos # (Auto) 0.0 Baso # (Auto) 0.0 Nucleated RBC % (auto) 0 Nucleated RBCs # 0.0 Sodium Potassium Chloride Carbon Dioxide Anion Gap BUN Creatinine GFR Calculation Glucose Calculated Osmolality Lactic Acid (Sepsis) Lactate 4.7 H* Calcium Total Bilirubin AST ALT Alkaline Phosphatase Total Protein Albumin Globulin Lipase Urine Color Yellow Urine Appearance Cloudy Urine pH 5 Ur Specific [place] 1.020 Urine Protein Trace Urine Glucose (UA) Trace H Urine Ketones 1+ H Urine Blood 2+ H Urine Nitrate Negative Urine Bilirubin Neg Urine Urobilinogen Norm Ur Leukocyte Esterase Negative Urine RBC 0-4 H Urine WBC 0-4 H Ur Squamous Epith Cells 0-4 H Urine Bacteria 1+ H Urine Mucus 2+ 05/25/19 05/25/19 05/25/19 00:12 06:56 07:28 WBC RBC Hgb Hct MCV MCH MCHC RDW Plt Count MPV Neut % (Auto) Lymph % (Auto) [place] % (Auto) Eos % (Auto) Baso % (Auto) Neut # (Auto) Lymph # (Auto) [place] # (Auto) Eos # (Auto) Baso # (Auto) Nucleated RBC % (auto) Nucleated RBCs # Sodium 137 143 Potassium 3.3 L 3.5 Chloride 93 L 101 Carbon Dioxide 28 28 Anion Gap 19.3 H 17.5 BUN 13 15 Creatinine 1.1 1.0 GFR Calculation 72.4 L 80.8 L Glucose 124 H 119 H Calculated Osmolality 282 L 293 Lactic Acid (Sepsis) 3.9 H Lactate Calcium 8.8 8.3 L Total Bilirubin 3.7 H 3.1 H AST 93 H 91 H ALT 44 H 43 H Alkaline Phosphatase 121 122 Total Protein 6.6 6.3 L Albumin 3.6 3.5 Globulin 3.0 2.8 Lipase 33 Urine Color Urine Appearance Urine pH Ur Specific [place] Urine Protein Urine Glucose (UA) Urine Ketones Urine Blood Urine Nitrate Urine Bilirubin Urine Urobilinogen Ur Leukocyte Esterase Urine RBC Urine WBC Ur Squamous Epith Cells Urine Bacteria Urine Mucus 05/25/19 07:28 WBC 12.2 H RBC 3.25 L Hgb 11.6 L Hct 34.7 L MCV 106.8 H MCH 35.7 H MCHC 33.4 RDW 16.0 H Plt Count 76 L MPV 10.9 H Neut % (Auto) 68.0 Lymph % (Auto) 19.2 [place] % (Auto) 11.4 Eos % (Auto) 0.5 Baso % (Auto) 0.3 Neut # (Auto) 8.3 H Lymph # (Auto) 2.4 [place] # (Auto) 1.4 H Eos # (Auto) 0.1 Baso # (Auto) 0.0 Nucleated RBC % (auto) 0 Nucleated RBCs # 0.0 Sodium Potassium Chloride Carbon Dioxide Anion Gap BUN Creatinine GFR Calculation Glucose Calculated Osmolality Lactic Acid (Sepsis) Lactate Calcium Total Bilirubin AST ALT Alkaline Phosphatase Total Protein Albumin Globulin Lipase Urine Color Urine Appearance Urine pH Ur Specific [place] Urine Protein Urine Glucose (UA) Urine Ketones Urine Blood Urine Nitrate Urine Bilirubin Urine Urobilinogen Ur Leukocyte Esterase Urine RBC Urine WBC Ur Squamous Epith Cells Urine Bacteria Urine Mucus Micro: Microbiology 05/25/19 09:56 Enteric Pathogens (PCR) - Final Stool C.difficile Toxin B Gene (PCR) - Final 05/24/19 23:50 Blood Culture - Preliminary Blood SPECIMEN COLLECTED 05/24/19 23:47 Blood Culture - Preliminary Blood SPECIMEN COLLECTED Cardiac Studies: No Data to Display
[2019-05-26] VITALS (15 sets, daily range): BP systolic 84–109; BP diastolic 41–71; PULSE 73–94; RESP 15–18; TEMP 36.8–37.4; O2SAT 79–96
[2019-05-26] MEDS: piperacillin-tazobactam 3.375 GM in sodium chloride 0.9% (plus) 50 ML IV ×3 (01:14→18:49)
[2019-05-26] MEDS: pantoprazole 40 mg SDV IVP ×2 (04:00→18:03)
[2019-05-26] MEDS: lactated ringers 1,000 ML 125 ML IV ×3 (04:04→19:41)
[2019-05-26 05:58] LABS: Basophils # 0.1 10^3/uL (0.0-0.1); Basophils % 0.6 %; Eosinophils # 0.2 10^3/uL (0.0-0.8); Eosinophils % 1.7 %; Hemoglobin 10.5 g/dL (11.7-16.6); Lymphocytes # 2.7 10^3/uL (0.8-4.8); Lymphocytes % 29.9 %; Mean Corpuscular HGB Conc 32.8 g/dL (30.0-36.0); Mean Corpuscular Hemoglobin 35.4 pg (28.0-34.0); Mean Corpuscular Volume 107.7 fL (80-94); Monocytes # 0.8 10^3/uL (0.2-0.9); Monocytes % 9.3 %; Neutrophils # 5.1 10^3/uL (1.8-7.7); Neutrophils % 57.9 %; Nucleated Red Blood Cells % 0 %; Platelet Count 69 10^3/cmm (130-400); Red Blood Count 2.97 10^6/uL (4.1-5.3); Red Cell Distribution Width 16.7 % (12.1-15.1); White Blood Count 8.9 10^3/uL (4.0-10.0)
[2019-05-26 06:17] LABS: Alanine Aminotransferase 38 U/L (0-41); Albumin Level 3.3 g/dL (3.5-5.2); Alkaline Phosphatase 106 IU/L (40-130); Anion Gap 14.3 (5-19); Aspartate Amino Transferase 87 U/L (0-40); Blood Urea Nitrogen 15 mg/dL (6-20); Calcium 8.3 mg/dL (8.5-10.5); Carbon Dioxide 29 mmol/L (22-29); Chloride 105 mmol/L (98-107); Globulin 2.5 g/dL (1.3-4.6); Glomerular Filtration Rate 72.4 mL/min (90-130); Glucose 86 mg/dL (65-115); Osmolality Calculated 296 mOsm/kg (285-295); Potassium 3.3 mmol/L (3.5-5.1); Sodium 145 mmol/L (136-145); Total Bilirubin 2.8 mg/dL (0.15-1.2); Total Protein 5.8 g/dL (6.6-8.7)
[2019-05-26] MEDS: ondansetron 2 mg/ML SDV 2 mL 4 MG IVP (06:46)
[2019-05-26] MEDS: morphine 4 mg/mL SDV 1 mL IVP (06:46)
--- NOTE | 2019-05-26 07:44 | P.ANESASSM_ITS ---
Pre-Anesthetic Assessment Pre-Anesthetic Assessment: Height/Weight: Height 1.73 m Weight 85.275 kg Temp Pulse Resp BP Pulse Ox 99.3 F 79 18 106/64 94 05/26/19 07:36 05/26/19 07:36 05/26/19 07:36 05/26/19 07:36 05/26/19 07:36 Preop Diagnosis: hematemsis Proposed Procedure: Operation Date: 05/26/19 08:30 Proposed Procedures p EGD(Not Applicable) - Haile Frias MD Last intake: Intake Last Liquid Date 05/24/19 Last Liquid Time 22:00 Last Solid Date 05/24/19 Social: Social History: Tobacco Packs per day: 1 Pack years: 28 Exam: Pre-Anes Outpt Exam: alert, oriented x 3, clear to auscultation bilaterally and regular rate & rhythm Airway: Submandibular: WNL Cervical ROM: WNL MP: 1 Dentition: Chipped CV/HEM: Comments: 2 Blocks/2FOS wihtout angina/DURBIN GI: Comments: hematemesis Anesthetic Plan: ASA status: 2E Anesthesia: MAC Meds/Allergies Current Medications: Current Medications Generic Name Dose Route Start Last Admin Trade Name Freq PRN Reason Stop Dose Admin Folic Acid 1 mg 05/25/19 09:00 05/25/19 08:58 Folic Acid PO Not Given DAILY CHRIS Hydromorphone HCl 1 mg 05/25/19 05:04 05/25/19 05:22 Dilaudid Inj IVP 1 mg Q4H PRN Administration PAIN Lactated Ringer's 1,000 mls @ 125 m ls/hr 05/25/19 04:13 05/26/19 04:04 Lactated Ringers IV 125 mls/hr .Q8H CHRIS Administration Piperacillin Sod/T azobactam 50 mls @ 12.5 mls /hr 05/25/19 04:30 05/26/19 01:14 Sod 3.375 gm/ So dium Chloride IV 12.5 mls/hr Q8H CHRIS Administration Protocol Sodium Chloride 1,000 mls @ 30 ml s/hr 05/25/19 09:31 05/25/19 17:53 Sodium Chloride 0.9% IV 05/26/19 09:30 Not Given .Q24H ONE Morphine Sulfate 4 mg 05/25/19 04:13 05/26/19 06:46 Morphine IVP 4 mg Q4H PRN Administration SEVERE PAIN Multivitamins Ther apeutic 1 tab 05/25/19 09:00 05/25/19 08:58 Multivitamin Tab PO Not Given DAILY CHRIS Ondansetron HCl 4 mg 05/25/19 04:13 05/26/19 06:46 Zofran IVP 4 mg Q6H PRN Administration NAUSEA AND VOMITI NG Pantoprazole Sodiu m 40 mg 05/25/19 04:15 05/26/19 04:00 Protonix IVP 40 mg Q12H CHRIS Administration PFSH Anesthesia PFSH: Medical History Enterocolitis 2017 History of colon polyps Rectal polyp 10 and 15 cm, cecum biopsy Sigmoid colon polyp Seasonal allergies Splenomegaly Surgical History H/O esophagogastroduodenoscopy H/O left inguinal hernia repair Status post colonoscopy with polypectomy Vasectomy status Family History Denies family history of Cancer Social History Smoking and tobacco status: heavy tobacco smoker cigarettes [ Other cigarette details: [id number] history, 1 pack/day ] Alcohol intake: current Alcohol use comment: Drinks whiskey 3-4 drinks every day Substance/Drug Use: never Lives independently: Yes Housing: House Marital status: Single Current occupational status: employed Data Anesthesia CBC & Chem 7: 05/26/19 05:48 05/26/19 05:48 Other Labs: Laboratory Results - last 48 hr 05/24/19 05/24/19 05/24/19 23:27 23:47 23:55 WBC 14.0 H RBC 3.94 L Hgb 14.1 Hct 41.0 L MCV 104.1 H MCH 35.8 H MCHC 34.4 RDW 15.8 H Plt Count 87 L MPV 11.4 H Neut % (Auto) 76.3 Lymph % (Auto) 11.8 [place] % (Auto) 11.1 Eos % (Auto) 0.1 Baso % (Auto) 0.2 Neut # (Auto) 10.7 H Lymph # (Auto) 1.6 [place] # (Auto) 1.6 H Eos # (Auto) 0.0 Baso # (Auto) 0.0 Nucleated RBC % (auto) 0 Nucleated RBCs # 0.0 Sodium Potassium Chloride Carbon Dioxide Anion Gap BUN Creatinine GFR Calculation Glucose Calculated Osmolality Lactic Acid (Sepsis) Lactate 4.7 H* Calcium Total Bilirubin Direct Bilirubin AST ALT Alkaline Phosphatase Total Protein Albumin Globulin Lipase Urine Color Yellow Urine Appearance Cloudy Urine pH 5 Ur Specific [place] 1.020 Urine Protein Trace Urine Glucose (UA) Trace H Urine Ketones 1+ H Urine Blood 2+ H Urine Nitrate Negative Urine Bilirubin Neg Urine Urobilinogen Norm Ur Leukocyte Esterase Negative Urine RBC 0-4 H Urine WBC 0-4 H Ur Squamous Epith Cells 0-4 H Urine Bacteria 1+ H Urine Mucus 2+ 05/25/19 05/25/19 05/25/19 00:12 06:56 07:28 WBC RBC Hgb Hct MCV MCH MCHC RDW Plt Count MPV Neut % (Auto) Lymph % (Auto) [place] % (Auto) Eos % (Auto) Baso % (Auto) Neut # (Auto) Lymph # (Auto) [place] # (Auto) Eos # (Auto) Baso # (Auto) Nucleated RBC % (auto) Nucleated RBCs # Sodium 137 143 Potassium 3.3 L 3.5 Chloride 93 L 101 Carbon Dioxide 28 28 Anion Gap 19.3 H 17.5 BUN 13 15 Creatinine 1.1 1.0 GFR Calculation 72.4 L 80.8 L Glucose 124 H 119 H Calculated Osmolality 282 L 293 Lactic Acid (Sepsis) 3.9 H Lactate Calcium 8.8 8.3 L Total Bilirubin 3.7 H 3.1 H Direct Bilirubin AST 93 H 91 H ALT 44 H 43 H Alkaline Phosphatase 121 122 Total Protein 6.6 6.3 L Albumin 3.6 3.5 Globulin 3.0 2.8 Lipase 33 Urine Color Urine Appearance Urine pH Ur Specific [place] Urine Protein Urine Glucose (UA) Urine Ketones Urine Blood Urine Nitrate Urine Bilirubin Urine Urobilinogen Ur Leukocyte Esterase Urine RBC Urine WBC Ur Squamous Epith Cells Urine Bacteria Urine Mucus 05/25/19 05/26/19 05/26/19 07:28 05:48 05:48 WBC 12.2 H 8.9 RBC 3.25 L 2.97 L Hgb 11.6 L 10.5 L Hct 34.7 L 32.0 L MCV 106.8 H 107.7 H MCH 35.7 H 35.4 H MCHC 33.4 32.8 RDW 16.0 H 16.7 H Plt Count 76 L 69 L MPV 10.9 H 11.0 H Neut % (Auto) 68.0 57.9 Lymph % (Auto) 19.2 29.9 [place] % (Auto) 11.4 9.3 Eos % (Auto) 0.5 1.7 Baso % (Auto) 0.3 0.6 Neut # (Auto) 8.3 H 5.1 Lymph # (Auto) 2.4 2.7 [place] # (Auto) 1.4 H 0.8 Eos # (Auto) 0.1 0.2 Baso # (Auto) 0.0 0.1 Nucleated RBC % (auto) 0 0 Nucleated RBCs # 0.0 0.0 Sodium 145 Potassium 3.3 L Chloride 105 Carbon Dioxide 29 Anion Gap 14.3 BUN 15 Creatinine 1.1 GFR Calculation 72.4 L Glucose 86 Calculated Osmolality 296 H Lactic Acid (Sepsis) Lactate Calcium 8.3 L Total Bilirubin 2.8 H Direct Bilirubin AST 87 H ALT 38 Alkaline Phosphatase 106 Total Protein 5.8 L Albumin 3.3 L Globulin 2.5 Lipase Urine Color Urine Appearance Urine pH Ur Specific [place] Urine Protein Urine Glucose (UA) Urine Ketones Urine Blood Urine Nitrate Urine Bilirubin Urine Urobilinogen Ur Leukocyte Esterase Urine RBC Urine WBC Ur Squamous Epith Cells Urine Bacteria Urine Mucus 05/26/19 05:48 WBC RBC Hgb Hct MCV MCH MCHC RDW Plt Count MPV Neut % (Auto) Lymph % (Auto) [place] % (Auto) Eos % (Auto) Baso % (Auto) Neut # (Auto) Lymph # (Auto) [place] # (Auto) Eos # (Auto) Baso # (Auto) Nucleated RBC % (auto) Nucleated RBCs # Sodium Potassium Chloride Carbon Dioxide Anion Gap BUN Creatinine GFR Calculation Glucose Calculated Osmolality Lactic Acid (Sepsis) Lactate Calcium Total Bilirubin Direct Bilirubin 1.60 H AST ALT Alkaline Phosphatase Total Protein Albumin Globulin Lipase Urine Color Urine Appearance Urine pH Ur Specific [place] Urine Protein Urine Glucose (UA) Urine Ketones Urine Blood Urine Nitrate Urine Bilirubin Urine Urobilinogen Ur Leukocyte Esterase Urine RBC Urine WBC Ur Squamous Epith Cells Urine Bacteria Urine Mucus Micro: Microbiology 05/24/19 23:50 Blood Culture - Preliminary Blood NEGATIVE TO DATE 05/24/19 23:47 Blood Culture - Preliminary Blood NEGATIVE TO DATE 05/25/19 09:56 Enteric Pathogens (PCR) - Final Stool C.difficile Toxin B Gene (PCR) - Final Cardiac Studies: No Data to Display
[2019-05-26 10:03] LABS: Glucose Point of Care 66 mg/dL (70-110)
[2019-05-26 11:12] LABS: Glucose Point of Care 93 mg/dL (70-110)
--- NOTE | 2019-05-26 11:46 | PM.PN ---
Subjective Subjective: Interval history: Patient denies any abdominal pain nausea or vomiting, no bloody bowel movements Vitals/I&O/Wt Last Vital Signs Temp 98.8 F 05/26/19 09:29 Pulse 75 05/26/19 09:29 Resp 17 05/26/19 09:29 BP 99/65 05/26/19 09:29 Pulse Ox 95 05/26/19 09:29 05/25/19 05/26/19 05/26/19 22:59 06:59 14:59 Intake Total 1050 / 2891.667 906.25 / 2891.667 843.75 / 843.75 Output Total 150 / 400 200 / 400 0 / 0 Balance 900 / 2491.667 706.25 / 2491.667 843.75 / 843.75 Weight last 48 hrs Weight 188 lb Physical Exam Narrative: EXAM NARRATIVE: Abdomen: Soft Data : 05/26/19 05:48 05/26/19 05:48 Micro: Microbiology 05/24/19 23:50 Blood Culture - Preliminary Blood NEGATIVE TO DATE 05/24/19 23:47 Blood Culture - Preliminary Blood NEGATIVE TO DATE 05/25/19 09:56 Enteric Pathogens (PCR) - Final Stool C.difficile Toxin B Gene (PCR) - Final A&P Assessment and plan (1) Hematemesis: 44-year-old male with history of daily alcohol consumption who presents with hematemesis but is currently hemodynamically stable. Plan for EGD under MAC Status: Acute Attestations Medical Necessity Statement*: Plan for EGD today Coding Level of Care Code Acute Hydraulic Miner Blasting for estefanía López Diagnoses Hematemesis K92.0
--- NOTE | 2019-05-26 12:51 | P.PN_ITS ---
Subjective Subjective: Interval history: Patient had EGD performed today showing evidence of esophageal varices and evidence of gastritis but otherwise no evidence of active bleeding. Patient was deemed okay from surgical standpoint to be dismissed home with outpatient follow-up with GI specialist. Patient was seen postprocedure this morning and reports no shortness of breath or chest pain. Denies abdominal pain. Denies being nauseous and reports that last bowel movement was more green than black. Reports that he had previous history of mild withdrawal symptoms mostly manifested as tremors. His hemoglobin and platelets slightly down. He appears to be slightly more lethargic today although answers questions and follows commands appropriately. Vitals/I&O/Wt Last Vital Signs Temp 99.2 F 05/26/19 12:00 Pulse 91 05/26/19 12:00 Resp 17 05/26/19 12:00 BP 109/71 05/26/19 12:00 Pulse Ox 96 05/26/19 12:00 05/25/19 05/26/19 05/26/19 22:59 06:59 14:59 Intake Total 1050 / 1985.417 906.25 / 2891.667 843.75 / 843.75 Output Total 150 / 200 200 / 400 0 / 0 Balance 900 / 1785.417 706.25 / 2491.667 843.75 / 843.75 Weight last 48 hrs Weight 85.275 kg Physical Exam Const: COMMON NORMALS: no apparent distress and oriented x3 Resp: COMMON NORMALS: normal respiratory effort and clear to auscultation bilaterally AUSCULTATION: clear to auscultation bilaterally Cardio: COMMON NORMALS: regular rate, regular rhythm and S2 normal heart sound RATE: regular rate RHYTHM: regular rhythm HEART SOUNDS: S2 normal OTHER: No lower extremity edema GI: COMMON NORMALS: normal to inspection, nondistended, normoactive bowel sounds and soft to palpation PALPATION: Yes soft and Yes tender (Mostly epigastric and left upper quadrant) Neuro: COMMON NORMALS: oriented x3 and no focal motor deficits Data : 05/26/19 05:48 05/26/19 05:48 Micro: Microbiology 05/24/19 23:50 Blood Culture - Preliminary Blood NEGATIVE TO DATE 05/24/19 23:47 Blood Culture - Preliminary Blood NEGATIVE TO DATE 05/25/19 09:56 Enteric Pathogens (PCR) - Final Stool C.difficile Toxin B Gene (PCR) - Final A&P Assessment and plan (1) Colitis: Status: Acute (2) Alcohol abuse: Status: Acute (3) Sepsis: Status: Acute (4) Smoker: Status: Acute Additional A&P Information Sepsis secondary to colitis Sepsis criteria met with tachycardia, leukocytosis, high lactic acid Hematemesis. Alcohol use gastritis Alcohol induced fatty liver disease. Thrombocytopenia most likely due to alcohol abuse and possibly secondary to GI bleed Would avoid using any anticoagulation for DVT prophylaxis at the moment, Upper GI bleed. Hypokalemia secondary to emesis: Repleted Alcohol abuse: Never had withdrawal symptoms, patient is trying to cut down on his alcohol inta ke, Ativan as needed use, will check blood alcohol level, last drink was yesterday Active smoker: Counseled on smoking cessation Agreeable for cessation currently does not require nicotine replacement therapy PLAN: Check lactic acid and ammonia level. Start patient on lactulose daily and nadolol. Start patient on standing dose Librium. Continue antibiotic and continue monitoring. Continue Protonix and advance diet as tolerated. Dr. Frias recommends outpatient follow-up with GI service for banding procedure. Patient is getting his care at the [place] facility and I have discussed with him to contact his primary care physician who is Dr. Rey as soon as possible and to arrange further GI evaluation as recommended. I will continue patient's inpatient monitoring and treatment at this point as I would like to see his hemoglobin and platelets to stabilize. Soft mechanical diet was recommended although unlikely to to have major beneficial effect. Full code DVT prophylaxis: Would avoid for now because of thrombocytopenia, will use SCDs Attestations Medical Necessity Statement*: Patient with GI bleed requires close inpatient monitoring and treatment. Coding Level of Care Code Acute Clinical Laboratory Medical Director for Denia Charlotted Diagnoses Colitis K52.9 Alcohol abuse F10.10 Sepsis A41.9 Smoker F17.200
[2019-05-26 14:18] LABS: Lactic Acid level (Lactate) 2.6 mmol/L (0.5-2.2)
[2019-05-26 14:19] LABS: Ammonia 73 umol/L (16-60)
[2019-05-26] MEDS: lactulose oral liq 20 gm/30 mL UDC 30 GM PO (15:55)
[2019-05-26] MEDS: chlordiazePOXIDE 25 mg Capsule PO ×2 (15:55→18:50)
[2019-05-26 17:27] LABS: Glucose Point of Care 89 mg/dL (70-110)
[2019-05-27] VITALS (7 sets, daily range): BP systolic 91–106; BP diastolic 56–71; PULSE 73–88; RESP 17–18; TEMP 36.7–37.2; O2SAT 90–95
[2019-05-27] MEDS: piperacillin-tazobactam 3.375 GM in sodium chloride 0.9% (plus) 50 ML IV (00:26)
[2019-05-27] MEDS: chlordiazePOXIDE 25 mg Capsule PO ×2 (00:26→06:24)
[2019-05-27] MEDS: lactated ringers 1,000 ML 125 ML IV (05:23)
[2019-05-27] MEDS: pantoprazole 40 mg SDV IVP (05:27)
[2019-05-27 06:00] LABS: Ammonia 30 umol/L (16-60); Lactic Acid level (Lactate) 1.5 mmol/L (0.5-2.2)
--- NOTE | 2019-05-27 06:59 | ANE.PACU2 ---
 Inpatient post-anesthesia follow up: Airway intact: Yes Vital signs: Temperature 98.9 F Pulse Rate [Monito r] 140 Pulse Rate 78 Respiratory Rate 17 Blood Pressure [Le ft Arm] 146/92 Blood Pressure 106/71 Pulse Oximetry 95 Oxygen Delivery Me thod Nasal Cannula Oxygen Flow Rate 92 Fraction of Inspir ed Oxygen Hydration adequate: Yes Nausea and vomiting: No Pain level: 1 Mental status: Baseline
[2019-05-27 08:26] LABS: Basophils # 0.1 10^3/uL (0.0-0.1); Basophils % 0.8 %; Eosinophils # 0.3 10^3/uL (0.0-0.8); Eosinophils % 3.5 %; Hematocrit 31.1 % (42.0-52.0); Hemoglobin 10.4 g/dL (11.7-16.6); Lymphocytes # 2.6 10^3/uL (0.8-4.8); Mean Corpuscular HGB Conc 33.4 g/dL (30.0-36.0); Mean Corpuscular Hemoglobin 37.1 pg (28.0-34.0); Mean Corpuscular Volume 111.1 fL (80-94); Mean Platelet Volume 11.6 fL (7.4-10.4); Monocytes # 0.7 10^3/uL (0.2-0.9); Monocytes % 8.8 %; Neutrophils % 52.5 %; Nucleated Red Blood Cells % 0 %; Platelet Count 64 10^3/cmm (130-400); White Blood Count 7.5 10^3/uL (4.0-10.0)
[2019-05-27] MEDS: thiamine 100 mg Tablet PO (08:47)
[2019-05-27] MEDS: multivitamin therapeutic Tablet 1 TAB PO (08:47)
[2019-05-27] MEDS: folic acid 1 mg Tablet PO (08:47)
--- NOTE | 2019-05-27 08:55 | PC.NURSE ---
ROUNDING: patient states that he had a black stool yesterday while here in the hosptial. Had a Bowel Movement today and no blood or black colored stool noted. SMW, HIM ANALYST
[2019-05-27 09:26] LABS: Alanine Aminotransferase 37 U/L (0-41); Alkaline Phosphatase 99 IU/L (40-130); Anion Gap 12.4 (5-19); Aspartate Amino Transferase 89 U/L (0-40); Blood Urea Nitrogen 10 mg/dL (6-20); Calcium 8.2 mg/dL (8.5-10.5); Carbon Dioxide 27 mmol/L (22-29); Chloride 101 mmol/L (98-107); Globulin 2.6 g/dL (1.3-4.6); Glomerular Filtration Rate 59.7 mL/min (90-130); Glucose 92 mg/dL (65-115); Osmolality Calculated 280 mOsm/kg (285-295); Potassium 3.4 mmol/L (3.5-5.1); Sodium 137 mmol/L (136-145); Total Bilirubin 2.7 mg/dL (0.15-1.2); Total Protein 5.6 g/dL (6.6-8.7)
--- NOTE | 2019-05-27 09:42 | P.DS_ITS ---
Discharge Providers Date of Admission: 05/25/19 02:57 Date of Discharge: May 27, 2019 Attending Provider at Admission: Mayra Cook MD Attending Provider at Discharge: Ilia Alexander MD Diagnoses at Discharge Discharge Diagnosis (1) Colitis: Status: Acute (2) Alcohol abuse: Status: Acute (3) Sepsis: Status: Acute (4) Smoker: Status: Acute (5) Gastrointestinal hemorrhage with hematemesis: Status: Acute (6) 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: Status: Acute Reason for Visit Reason for Visit: Reason For Visit: n/v/d Hospital Course Discharge Summary: Patient with alcohol use disorder presents with hematemesis and melanotic stools. He was further evaluated with upper endoscopy showing evidence of esophageal varices but no active bleeding. There was evidence of gastritis and patient was treated with high-dose PPI. Patient gradually improved and this morning reports feeling much better and strong enough to be dismissed home. He tolerates clear liquid diet well. He had evidence of colitis on imaging and was treated with Zosyn. We will transition patient to Flagyl and Levaquin and continue for 1 more week. Patient this morning denies any abdominal pain or problems with bowel movement. Reports that his stool is now formed and brown in color. He ambulates without difficulty. Patient does not want Librium as he reports not having much of the withdrawal symptoms and he thinks he will be okay stopping alcohol. He is motivated and reports that he is not going to drink anymore. We have discussed that if he develops withdrawal symptoms he may need to drink minimal amount of alcohol and possibly gradually taper to avoid withdrawal symptoms. Patient felt comfortable. I have discussed case with Dr. Rey who will arrange further evaluation by GI specialist through the [place] system. This morning patient denies any shortness of breath or chest pain. Denies abdominal pain or nausea. Physical Exam Const: COMMON NORMALS: no apparent distress and oriented x3 Resp: COMMON NORMALS: normal respiratory effort and clear to auscultation bilaterally AUSCULTATION: clear to auscultation bilaterally Cardio: COMMON NORMALS: regular rate, regular rhythm and S2 normal heart sound RATE: regular rate RHYTHM: regular rhythm HEART SOUNDS: S2 normal OTHER: No lower extremity edema GI: COMMON NORMALS: normal to inspection, nondistended, normoactive bowel sounds, soft to palpation and non-tender PALPATION: Yes soft Neuro: COMMON NORMALS: oriented x3 and no focal motor deficits Discharge Data Data Completed and Pending: Completed Studies During Hospitalization Category Date Time Status CT abdomen pelvis w con* [id number] Urge nt Cat Scan 05/24/19 23:43 Completed US gall bladder 7 [id number] Urgent Ultrasound 05/25/19 01:48 Completed Pending at discharge Category Date Time Status Blood Culture Sta t Lab 05/24/19 23:50 Results Complete Blood Co unt w/Auto AM LABS Lab 05/28/19 04:00 Ordered Complete Blood Co unt w/Auto AM LABS Lab 05/29/19 04:00 Ordered Complete Blood Co unt w/Auto AM LABS Lab 05/30/19 04:00 Ordered Comprehensive Met abolic Panel AM LA BS Lab 05/28/19 04:00 Ordered Comprehensive Met abolic Panel AM LA BS Lab 05/29/19 04:00 Ordered Comprehensive Met abolic Panel AM LA BS Lab 05/30/19 04:00 Ordered Labs from last 24 hours 05/27/19 05/27/19 05/27/19 05:20 05:20 05:20 WBC 7.5 RBC 2.80 L Hgb 10.4 L Hct 31.1 L MCV 111.1 H MCH 37.1 H MCHC 33.4 RDW 17.0 H Plt Count 64 L MPV 11.6 H Neut % (Auto) 52.5 Lymph % (Auto) 34.0 [place] % (Auto) 8.8 Eos % (Auto) 3.5 Baso % (Auto) 0.8 Neut # (Auto) 4.0 Lymph # (Auto) 2.6 [place] # (Auto) 0.7 Eos # (Auto) 0.3 Baso # (Auto) 0.1 Nucleated RBC % (a uto) 0 Nucleated RBCs # 0.0 Sodium 137 Potassium 3.4 L Chloride 101 Carbon Dioxide 27 Anion Gap 12.4 BUN 10 Creatinine 1.3 H GFR Calculation 59.7 L Glucose 92 POC Glucose Calculated Osmolal ity 280 L Lactic Acid (Sepsi s) Calcium 8.2 L Total Bilirubin 2.7 H AST 89 H ALT 37 Alkaline Phosphata se 99 Ammonia 30 Total Protein 5.6 L Albumin 3.0 L Globulin 2.6 05/27/19 05/26/19 05/26/19 05:20 17:11 13:58 WBC RBC Hgb Hct MCV MCH MCHC RDW Plt Count MPV Neut % (Auto) Lymph % (Auto) [place] % (Auto) Eos % (Auto) Baso % (Auto) Neut # (Auto) Lymph # (Auto) [place] # (Auto) Eos # (Auto) Baso # (Auto) Nucleated RBC % (a uto) Nucleated RBCs # Sodium Potassium Chloride Carbon Dioxide Anion Gap BUN Creatinine GFR Calculation Glucose POC Glucose 89 Calculated Osmolal ity Lactic Acid (Sepsi s) 1.5 2.6 H Calcium Total Bilirubin AST ALT Alkaline Phosphata se Ammonia Total Protein Albumin Globulin 05/26/19 05/26/19 05/26/19 13:58 11:08 09:55 WBC RBC Hgb Hct MCV MCH MCHC RDW Plt Count MPV Neut % (Auto) Lymph % (Auto) [place] % (Auto) Eos % (Auto) Baso % (Auto) Neut # (Auto) Lymph # (Auto) [place] # (Auto) Eos # (Auto) Baso # (Auto) Nucleated RBC % (a uto) Nucleated RBCs # Sodium Potassium Chloride Carbon Dioxide Anion Gap BUN Creatinine GFR Calculation Glucose POC Glucose 93 66 Calculated Osmolal ity Lactic Acid (Sepsi s) Calcium Total Bilirubin AST ALT Alkaline Phosphata se Ammonia 73 H Total Protein Albumin Globulin Vitals: Last Vital Signs Temp 98.1 F 05/27/19 08:53 Pulse 88 05/27/19 08:53 Resp 17 05/27/19 08:53 BP 91/56 05/27/19 08:53 Pulse Ox 90 05/27/19 08:53 Discharge Plan Discharge Patient Disposition: Home, Self-Care Condition: Stable Prescriptions: New lactulose 10 gram packet 10 gm PO DAILY 30 Days Qty: 30 RF: 0 pantoprazole [Protonix] 40 mg tablet,delayed release (DR/EC) 40 mg PO BID 30 Days Qty: 60 RF: 0 folic acid 1 mg Tablet 1 mg PO DAILY Qty: 30 RF: 0 Thera 400 mcg Tablet 1 tab PO DAILY Qty: 30 RF: 0 thiamine mononitrate (vit B1) [Vitamin B-1 (mononitrate)] 100 mg Tablet 100 mg PO DAILY Qty: 30 RF: 0 levofloxacin 750 mg Tablet 750 mg PO DAILY Qty: 7 RF: 0 metronidazole 500 mg Tablet 500 mg PO TID Qty: 21 RF: 0 No Action No Known Home Medications RF: 0 Discharge Orders: Discharge Order (Routine); Ordered 05/27/19 Ordered By: Ilia Alexander Referrals: Suresh Rey DO [Emergency Department] - 4-7 days Discharge Diet: Soft Mechanical Discharge Activity: Increase activity as tolerated Activity Restrictions/Additional Instructions: Please call your doctor or present to emergency department if your condition worsens or you develop diarrhea, lightheadedness, fatigue or see blood in your stool or black stool or develop nausea and vomiting. Please discuss with Dr. Rey if you require nicotine patch or need rehabilitation for alcohol use disorder. Discharge Attestations Time Spent in Discharge Care*: greater than 30 min Time Spent in Smoking Cessation: Time spent discussing smoking cessation with patient: 3 to 10 minutes Quality Metrics Clinical Quality Measures During this hospital stay, did patient experience: None Coding Level of Care Code Acute Center Line Cutter Operator for Jess López Diagnoses Colitis K52.9 Alcohol abuse F10.10 Sepsis A41.9 Smoker F17.200 Gastrointestinal hemorrhage with hematemesis K92.0 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 I85.00
[2019-05-27] MEDS: levoFLOXacin 750 mg Tablet PO (10:57)
--- NOTE | 2019-05-27 11:15 | PC.CHAP ---
Pastoral Care Encounter/Spiritual Assessment Type of Contact [] Declined support team assoc visit [] Patient/Family/Request visit [] Outpatient visit [] Follow-up visit [] Physician referral [] Code/Alert [x] Routine visit [] Staff referral [] Actively dying [] Patient sleeping [] Family support [] [] Out of room [] Palliative care [] [x] Receiving care in room [] Pre-surgical visit [] Trauma [] Long length of stay [] ICU visit [] Other: Relational/Emotional Strength [x] Patient feels connected with others/family/visitors/staff [] Distress [] Loneliness/isolation [] Abandonment Spirituality of Patient [x] Person of Adry [] Attends Holiness of their Adry [x] Believes in Prayer [] Reads Bible or Mormon materials [x] There are Spiritual issues to be addressed Marble Finisher 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 [x] Prayer [x] Active listening [x] Non-anxious presence [x] Spiritual/emotional support [] Crisis/trauma care [x] Spiritual counseling [] Bereavement support [] Provided bereavement packet [] Provided Bible/devotional materials [] Provided toy/stuffed animal, coloring book to patient or family member [] Provided Communion [] Anointing/[place] [] Salvation [x] Completed spiritual assessment [] Other: Impact on Illness or Injury [] Angry [] Fearful [x] Anxious [] Often cries [] Exhaustion [] Unable to work [] Unable to attend yazdanism [] Unable to walk/stand [] Unable to read [] Unable to drive [] Unable to eat/drink [] Unable to sleep [] Unable to be with family [] Patient intubated [] Other: Summary Vomating, stomhic few, Negative attitude doesn't feel good Time spent with patient 10 mins
== END 2019-05-27 12:10 | disposition home or self-care (01) | DRG 872 ==
LOC: ER 05-25 03:00 → MEDSURG 05-25 03:19
PROVIDERS: Physician Assistant; Surgery; Admitting Provider Internal Medicine; Emergency Provider Emergency Medicine; Family Provider Nurse Practitioner Family; Visit Provider Internal Medicine
PROC: 0DJ08ZZ Inspection of Upper Intestinal Tract, Via Natural or Artificial Opening Endoscopic (ICD-10-PCS; CPT 43235; principal; 2019-05-26 08:20)
DX: A41.9 Sepsis, unspecified organism (principal); K92.0 Hematemesis; I85.00 Esophageal varices without bleeding; K52.9 Noninfective gastroenteritis and colitis, unspecified; F10.10 Alcohol abuse, uncomplicated; F17.210 Nicotine dependence, cigarettes, uncomplicated; Z86.010 Personal history of colon polyps
CPT/HCPCS: 12345; 36415; 36416; 43235; 74177; 76705; 80053; 81001; 82140; 82248; 82962; 83605; 83690; 85025; 87040; 87493; 87506; 96372; 96375; 99282; A9270; C9113; J0744; J1170; J2001; J2250; J2270; J2370; J2405; J2543; J2704; J3411; J3480; J7030; Q9967; S0030

== ENCOUNTER → 2020-09-10 15:25 | Outpatient (BNVA) | payer OTHER, SELFPAY | PROVIDERS: Family Provider Nurse Practitioner Family; Visit Provider Nurse Practitioner Family | DX: Z20.822 Contact with and (suspected) exposure to COVID-19 (principal); Z11.52 Encounter for screening for COVID-19 | CPT/HCPCS: 87635 ==

== ENCOUNTER 2021-05-21 22:48 | Inpatient (IN) | payer OTHER, BC, SELFPAY ==
[2021-05-21 22:57] VITALS: BP 154/99; PULSE 123; RESP 20; TEMP 37; O2SAT 96; BMI 24.6
[2021-05-21 23:21] LABS: Basophils # 0.1 10^3/uL (0.0-0.1); Eosinophils # 0.2 10^3/uL (0.0-0.8); Eosinophils % 2.5 %; Hematocrit 39.5 % (42.0-52.0); Hemoglobin 13.5 g/dL (11.7-16.6); Lymphocytes # 1.2 10^3/uL (0.8-4.8); Lymphocytes % 14.6 %; Mean Corpuscular HGB Conc 34.2 g/dL (30.0-36.0); Mean Corpuscular Hemoglobin 35.1 pg (28.0-34.0); Mean Corpuscular Volume 102.6 fl (80-94); Monocytes # 1.4 10^3/uL (0.2-0.9); Monocytes % 17.6 %; Neutrophils # 5.14 10^3/uL (1.8-7.7); Neutrophils % 63.8 %; Nucleated Red Blood Cells % 0 %; Platelet Count 122 10^3/cmm (130-400); Red Blood Count 3.85 10^6/uL (4.1-5.3); Red Cell Distribution Width 16.7 % (12.1-15.1); White Blood Count 8.1 10^3/uL (4.0-10.0)
[2021-05-21 23:36] VITALS: BP 128/92; PULSE 113; RESP 18; O2SAT 94
[2021-05-21 23:46] LABS: Alanine Aminotransferase 38 U/L (0-41); Albumin Level 3.7 g/dL (3.5-5.2); Alkaline Phosphatase 239 IU/L (40-130); Anion Gap 13.6 (5-19); Aspartate Amino Transferase 99 U/L (0-40); Blood Urea Nitrogen 5 mg/dL (6-20); Calcium 9.1 mg/dL (8.5-10.5); Carbon Dioxide 24 mmol/L (22-29); Chloride 100 mmol/L (98-107); Globulin 4.3 g/dL (1.3-4.6); Glomerular Filtration Rate 120.9 mL/min (90-130); Glucose 104 mg/dL (65-115); Lipase 59 U/L (13-60); Osmolality Calculated 276 mOsm/kg (285-295); Potassium 3.6 mmol/L (3.5-5.1); Sodium 134 mmol/L (136-145); Total Bilirubin 2.9 mg/dL (0.15-1.2)
--- NOTE | 2021-05-21 23:59 | CTR_ITS ---
PROCEDURE INFORMATION: Exam: CT Abdomen And Pelvis With Contrast Exam date and time: 05/22/2021 12:37 AM Age: 46 years old Clinical indication: Bloating; Abdominal pain; Generalized; Prior surgery; Surgery date: 6+ months; Surgery type: Hernia; Patient HX: C/O abd pain, distention, nausea and hematuria x 2 days; Additional info: Abd pain and bloating TECHNIQUE: Imaging protocol: Computed tomography of the abdomen and pelvis with contrast. Radiation optimization: All CT scans at this facility use at least one of these dose optimization techniques: automated exposure control; mA and/or kV adjustment per patient size (includes targeted exams where dose is matched to clinical indication); or iterative reconstruction. Contrast material: OMNI 300; Contrast volume: 95 ml; Contrast route: INTRAVENOUS (IV); COMPARISON: CT abdomen pelvis w con* [id number] 05/25/2019 12:02 AM RADIATION DOSE METRICS: Total DLP (mGy-cm): 1722.41 FINDINGS: Lungs: Mild atelectasis at the lung bases. Liver: Liver configuration is consistent with hepatic cirrhosis. Innumerable hypodense micro nodules are noted throughout the liver, most likely representing regenerative nodules. No suspicious masses are demonstrated on this single phase study. Gallbladder and bile ducts: No calcified stones. No ductal dilation. Pancreas: Unremarkable. No ductal dilation. Spleen: Spleen is normal in size. Single punctate calcification demonstrated in the spleen. No acute splenic abnormality. Adrenal glands: Unremarkable. No mass. Kidneys and ureters: Mild atrophy of the left kidney. No renal masses. No hydronephrosis. Stomach and bowel: There is mural thickening noted of the colon. There is additional mural thickening of the small bowel to a lesser extent noted. No bowel obstruction. Appendix: No evidence of appendicitis. Intraperitoneal space: Large volume of ascites throughout the abdomen and pelvis. Vasculature: Gastrohepatic, gastrosplenic, and gastroesophageal varices are noted. The aorta is atherosclerotic. No aortic aneurysm. Lymph nodes: No pathologically enlarged lymph nodes. Urinary bladder: Urinary bladder is almost completely empty. The bladder is unremarkable as visualized. Reproductive: Unremarkable as visualized. Bones/joints: Degenerative spine changes are noted. No acute osseous abnormality. Soft tissues: Small umbilical hernia containing ascites. Small right inguinal hernia, also containing ascites. Mild subcutaneous edema. CT/CT abdomen pelvis w con* [id number] IMPRESSION: 1. Liver configuration is consistent with hepatic cirrhosis. Innumerable hypodense micro nodules are noted throughout the liver, most likely representing regenerative nodules. No suspicious masses are demonstrated on this single phase study. 2. Large volume of ascites throughout the abdomen and pelvis. Is site is is new when compared to 05/25/2019. Additional signs of portal hypertension are noted, including the presence of varices in a small recanalized umbilical vein. These findings are also new. 3. There is mural thickening noted of the colon. There is additional mural thickening of the small bowel to a lesser extent noted. Findings likely represent hepatic enteropathy. 4. Small umbilical hernia containing ascites. Small right inguinal hernia, also containing ascites.
[2021-05-22] VITALS (13 sets, daily range): BP systolic 96–144; BP diastolic 62–88; PULSE 78–107; RESP 16–22; TEMP 36.7–36.9; O2SAT 90–96; BMI 25.8
[2021-05-22] MEDS: sodium chloride 0.9% 1,000 ML 999 ML IV (00:04)
--- NOTE | 2021-05-22 00:25 | PC.NURSE ---
Spouse informed me that the patient did not want the fact that he is a daily drinker ( hard liquor) to be mentioned. Dr Mason informed of this statement.
[2021-05-22] MEDS: iohexol 300 mg/mL 100 mL Btl IV (00:37)
--- NOTE | 2021-05-22 00:53 | W.ED.ABDPA2 ---
HPI - Abdominal Pain General: Chief Complaint: Abdominal Pain Stated Complaint: ABD Pain\Blood in Urine\Back Pain Time Seen by Provider: 05/21/21 23:22 Source: patient and family History of Present Illness: 46-year-old male with a history of alcohol use, and alcoholic liver disease. He has a history also of esophageal varices. He is noted increased belly pain and distention for the past couple of days. No fever. No gross blood in the stool, and no tarry stools. He has had some blood in the urine. No vomiting, but he has been nauseated. MD elicited complaint: abdominal pain Pertinent past history: other Onset (ago): day(s) Pain Consistency: constant Location: Diffuse Quality: aching and fullness Radiation: none Migration to: no migration Exacerbating factors: movement Relieving factors: nothing Associated Symptoms: Reports anorexia, bloating, change in stool character, diarrhea, hematuria and nausea; Denies chills, fever(s), melena and vomiting Review of Systems Const: Denies: fever(s) or chills ENMT: Denies: throat pain Card: Denies: chest pain Resp: Reports: dyspnea (mild); Denies: productive cough or non-productive cough GI: Reports: nausea, diarrhea, bloating and change in stool character; Denies: vomiting or melena : Reports: hematuria; Denies: difficulty urinating Neuro: Denies: headache(s) or confusion PFSH ED PFSH: Medical History Alcohol use disorder Enterocolitis 2017 History of colon polyps Rectal polyp 10 and 15 cm, cecum biopsy Sigmoid colon polyp Seasonal allergies Smoking addiction Splenomegaly Surgical History H/O esophagogastroduodenoscopy H/O left inguinal hernia repair Status post colonoscopy with polypectomy Vasectomy status Family History Denies family history of Cancer Social History (Updated 05/22/21 @ 04:35 by Jefferson Mckeon MD) Smoking and tobacco status: current every day smoker cigarettes [ Other cigarette details: At least [id number] history, currently cutting down to several cigarettes] Alcohol intake: current Lives independently: Yes Housing: House Marital status: Physical Exam Const: GENERAL APPEARANCE: cooperative and ill appearing ORIENTATION/CONSCIOUSNESS: Yes awake, Yes oriented to person, Yes oriented to place and Yes oriented to time HENMT: COMMON NORMALS: normocephalic, atraumatic and Normal external nose present HEAD & SCALP: normocephalic and atraumatic FACE & SINUS: face symmetric NOSE: Normal external nose present Eye: COMMON NORMALS: Equal, round and reactive pupils present and EOMs intact bilaterally SCLERA: scleral abnormal Laterality of scleral abnormality: positive bilateral scleral icterus PUPIL: Yes Equal, round and reactive pupils present Chest: COMMONS NORMALS: normal inspection of the chest Resp: COMMON NORMALS: No use of accessory muscles and clear to auscultation bilaterally; negative for normal respiratory effort AUSCULTATION: clear to auscultation bilaterally Cardio: COMMON NORMALS: regular rate and regular rhythm RATE: regular rate RHYTHM: regular rhythm GI: COMMON NORMALS: Soft to palpation INSPECTION: Yes abdominal distension PALPATION: Yes Soft to palpation and Yes Tenderness to palpation present (GI) (diffuse) : COMMON NORMALS: No no CVA tenderness BLADDER/KIDNEY EXAM: No no CVA tenderness Back/Pelvis: COMMON NORMALS: negative for no CVA tenderness Extremity: COMMON NORMALS: no pedal edema Neuro: SENSORIUM/ORIENTATION: Yes oriented to person, Yes oriented to place and Yes oriented to time Skin: GENERAL SKIN EXAM: jaundice Course Vital Signs: Vital signs: Vital Signs Temperature 98.3 F 05/23/21 17:08 Pulse Rate 89 05/23/21 17:08 Respiratory Rate 16 05/23/21 17:08 Blood Pressure 104/68 05/23/21 17:08 Pulse Oximetry 91 05/23/21 17:08 MDM - Abdominal Pain Medical Decision Making Abdomen is distended. Patient is jaundiced. There is tenderness. CT scan shows significant ascites. Bilirubin is 2.9. This is a new diagnosis. Patient is afebrile. He will need paracentesis for the potential of SBP. cultures are drawn. Antibiotic coverage. He will be admitted. Lab Data : 05/23/21 02:55 05/23/21 02:55 Labs/Radiology: Radiology Impressions Abdomen/Pelvis CT 05/21/21 23:59 IMPRESSION: 1. Liver configuration is consistent with hepatic cirrhosis. Innumerable hypodense micro nodules are noted throughout the liver, most likely representing regenerative nodules. No suspicious masses are demonstrated on this single phase study. 2. Large volume of ascites throughout the abdomen and pelvis. Is site is is new when compared to 05/25/2019. Additional signs of portal hypertension are noted, including the presence of varices in a small recanalized umbilical vein. These findings are also new. 3. There is mural thickening noted of the colon. There is additional mural thickening of the small bowel to a lesser extent noted. Findings likely represent hepatic enteropathy. 4. Small umbilical hernia containing ascites. Small right inguinal hernia, also containing ascites. Abdomen Ultrasound 05/22/21 04:45 IMPRESSION: 1. Nodular contour of the liver compatible with cirrhosis. 2. Hepatomegaly 3. Gallbladder wall thickening measuring 4.7 mm likely related to the patient's hypoproteinemia. 4. Ascites 5. Correct flow seen within the portal and hepatic veins. Chest X-Ray 05/22/21 06:00 IMPRESSION: 1. Moderate pulmonary hypoexpansion. 2. Mild left lateral basilar subsegmental atelectasis. Paracentesis Ultrasound 05/23/21 07:00 IMPRESSION: Uncomplicated paracentesis yielding 5700 ml of peritoneal fluid. Peritoneal fluid specimen collected for analysis. Laboratory Results WBC 8.1 10^3/uL (4.0-10.0) 05/21/21 23:13 RBC 3.85 10^6/uL (4.1-5.3) L 05/21/21 23:13 Hgb 13.5 g/dL (11.7-16.6) 05/21/21 23:13 Hct 39.5 % (42.0-52.0) L 05/21/21 23:13 MCV 102.6 fl (80-94) H 05/21/21 23:13 MCH 35.1 pg (28.0-34.0) H 05/21/21 23:13 MCHC 34.2 g/dL (30.0-36.0) 05/21/21 23:13 RDW 16.7 % (12.1-15.1) H 05/21/21 23:13 Plt Count 122 10^3/cmm (130-400) L 05/21/21 23:13 MPV 10.0 fL (7.4-10.4) 05/21/21 23:13 Neut % (Auto) 63.8 % 05/21/21 23:13 Lymph % (Auto) 14.6 % 05/21/21 23:13 [place] % (Auto) 17.6 % 05/21/21 23:13 Eos % (Auto) 2.5 % 05/21/21 23:13 Baso % (Auto) 1.0 % 05/21/21 23:13 Neut # (Auto) 5.14 10^3/uL (1.8-7.7) 05/21/21 23:13 Lymph # (Auto) 1.2 10^3/uL (0.8-4.8) 05/21/21 23:13 [place] # (Auto) 1.4 10^3/uL (0.2-0.9) H 05/21/21 23:13 Eos # (Auto) 0.2 10^3/uL (0.0-0.8) 05/21/21 23:13 Baso # (Auto) 0.1 10^3/uL (0.0-0.1) 05/21/21 23:13 Nucleated RBC % (auto) 0 % 05/21/21 23:13 Nucleated RBCs # 0.0 /100WBC 05/21/21 23:13 PT 15.60 SECONDS (12.1-14.9) H 05/21/21 23:35 INR 1.20 (0.8-1.2) 05/21/21 23:35 Sodium 134 mmol/L (136-145) L 05/21/21 23:13 Potassium 3.6 mmol/L (3.5-5.1) 05/21/21 23:13 Chloride 100 mmol/L (98-107) 05/21/21 23:13 Carbon Dioxide 24 mmol/L (22-29) 05/21/21 23:13 Anion Gap 13.6 (5-19) 05/21/21 23:13 BUN 5 mg/dL (6-20) L 05/21/21 23:13 Creatinine 0.7 mg/dL (0.7-1.2) 05/21/21 23:13 GFR Calculation 120.9 mL/min (90-130) 05/21/21 23:13 Glucose 104 mg/dL (65-115) 05/21/21 23:13 Calculated Osmolality 276 mOsm/kg (285-295) L 05/21/21 23:13 Lactate 1.6 mmol/L (0.5-2.2) 05/22/21 02:11 Calcium 9.1 mg/dL (8.5-10.5) 05/21/21 23:13 Total Bilirubin 2.9 mg/dL (0.15-1.2) H 05/21/21 23:13 AST 99 U/L (0-40) H 05/21/21 23:13 ALT 38 U/L (0-41) 05/21/21 23:13 Alkaline Phosphatase 239 IU/L (40-130) H 05/21/21 23:13 Total Protein 8.0 g/dL (6.6-8.7) 05/21/21 23:13 Albumin 3.7 g/dL (3.5-5.2) 05/21/21 23:13 Globulin 4.3 g/dL (1.3-4.6) 05/21/21 23:13 Lipase 59 U/L (13-60) 05/21/21 23:13 Urine Color Yellow (Yellow) 05/22/21 00:15 Urine Appearance Clear (CLEAR) 05/22/21 00:15 Urine pH 5 (5-7) 05/22/21 00:15 Ur Specific [place] 1.025 (1.005-1.030) 05/22/21 00:15 Urine Protein Trace (Negative) 05/22/21 00:15 Urine Glucose (UA) Norm (Normal) 05/22/21 00:15 Urine Ketones 1+ (Negative) H 05/22/21 00:15 Urine Blood 2+ (Negative) H 05/22/21 00:15 Urine Nitrate Negative (Negative) 05/22/21 00:15 Urine Bilirubin 1+ (Negative) H 05/22/21 00:15 Urine Urobilinogen 4 mg/dL (Negative) H 05/22/21 00:15 Ur Leukocyte Esterase Negative (Negative) 05/22/21 00:15 Urine RBC 25-40 /hpf (0-2) H 05/22/21 00:15 Urine WBC 0-4 /hpf (0-5) H 05/22/21 00:15 Ur Squamous Epith Cells 0-4 /hpf (0-5) H 05/22/21 00:15 Calcium Oxalate Crystal 0-4 /hpf H 05/22/21 00:15 Amorphous Sediment Not Reportable 05/22/21 00:15 Urine Bacteria 1+ /hpf (NONE) H 05/22/21 00:15 Urine Mucus 4+ /hpf 05/22/21 00:15 Discharge Plan Discharge Patient Disposition: Admitted As Inpatient Admit Provider: Jefferson Mckeon Clinical Impression: Acute hepatic failure, Abdominal ascites Condition: Fair Coding Level of Care Code ED Seafood Service Team Member for Chg Fwd Exam Expanded Problem Focused
[2021-05-22 00:58] LABS: Add Urine Microscopic? YES; Bilirubin Urine 1+ (Negative); Blood Urine 2+ (Negative); Glucose Urine UA Norm (Normal); Ketones Urine 1+ (Negative); Leukocyte Esterase Urine Negative (Negative); Nitrate Urine Negative (Negative); Protein Urine Trace (Negative); Specific Gravity, Urine 1.025 (1.005-1.030); Urine Appearance Clear (CLEAR); Urine Color Yellow (Yellow); Urobilinogen Urine 4 mg/dL (Negative); pH Urine 5 (5-7)
[2021-05-22 01:04] LABS: Add Urine Culture? Yes; Bacteria Urine 1+ /hpf; Calcium Oxalate Crystals Urine 0-4 /hpf; Mucus Urine 4+ /hpf; RBC Urine 25-40 /hpf (0-2); Squamous Epithelial Cell Urine 0-4 /hpf (0-5); WBC Urine 0-4 /hpf (0-5)
[2021-05-22] MEDS: cefTRIAXone 2,000 MG in sodium chloride 0.9% (plus) 50 ML 100 MG IV (02:19)
[2021-05-22 03:00] LABS: Lactate (Lactic Acid level) 1.6 mmol/L (0.5-2.2)
[2021-05-22] MEDS: morphine 4 mg/mL SDV 1 mL IVP (03:42)
[2021-05-22] MEDS: ondansetron 2 mg/ML SDV 2 mL 4 MG IVP (03:43)
--- NOTE | 2021-05-22 04:31 | PM.HP ---
Providers/Chief Complaint Admitting Physician: Jefferson Mckeon Chief Complaint: ABD Pain\Blood in Urine\Back Pain History of Present Illness Pleasant 46-year-old gentleman with history of alcohol use disorder, with mild withdrawal symptoms, history of fatty liver disease, history of esophageal varices found on endoscopy, history of splenomegaly, smoking addiction, states has still been drinking alcohol daily, has been cutting down on smoking, now down to several cigarettes a day, presented to ER due to complaint of increasing diffuse abdominal pain, abdominal distention, lower extremity bilateral edema, nausea, poor appetite. No vomiting. Some loose stools. Denies hematochezia or melena. Denies fever. In ER he is noted with sinus tachycardia, afebrile, without leukocytosis, hemoglobin 13.5, platelet level 122,000. PT 15.6, INR 1.2. Sodium 134. Potassium 3.6. Bicarb 24, anion gap 13.6. BUN 5, creatinine 0.7. Lactic acid 1.6. T bili 2.9, AST 99, ALT 38, alk phos 239. UA with 1+ ketones, 2+ blood, 1+ bilirubin, 4 mg/dL urobilinogen, 25-40 RBC, 0-4 WBC, 014 squamous patella cells, 0-4 calcium oxalate crystals. 1+ bacteria. 4+ mucus. CT abdomen pelvis is obtained with finding of liver configuration consistent with hepatic cirrhosis. Innumerable hypodense micronodules are noted throughout the liver, most likely representing regenerative nodules. No suspicious masses demonstrated. Large volume ascites throughout the abdomen and pelvis. New when compared with 05/25/2019. Additional signs of portal hypertension noted including the presence of varices and a small recanalized umbilical vein. These findings are also new. Also noted mural thickening of the colon, additional mural thickening of small bowel to a lesser extent. Findings likely representing hepatic enteropathy. Small umbilical hernia containing ascites. Small right inguinal hernia also containing ascites. He and his were not aware of previously having cirrhosis. This appears to be new diagnosis. He was aware of previously having fatty liver and esophageal varices. He received IV fluid bolus, Zofran, morphine for pain, started on ceftriaxone. Review of Systems Const: Reports: change in appetite; Denies: fever(s), chills, body aches or malaise Eyes: Denies: change in vision, eye discomfort or eye redness ENMT: Denies: throat pain, oral sores or ear or mastoid pain Card: Reports: edema (Bilateral leg edema); Denies: chest pain, pre-syncope or dyspnea on exertion Resp: Denies: dyspnea, productive cough, change in phlegm color or hemoptysis GI: Reports: abdominal pain, nausea, diarrhea and other (Abdominal distention); Denies: vomiting, constipation, hematochezia or melena : Reports: other (Dark urine); Denies: flank pain, difficulty urinating or urinary frequency Musc: Denies: back pain, joint swelling or joint redness Skin/Breast: Denies: rash or new lesions Neuro: Reports: other (Some tremors with mild alcohol withdrawal); Denies: headache(s), numbness in extremities, weakness in extremities, dizziness, confusion or seizure-like activity Endo: Denies: polyuria or polydipsia Wu/Lymph: Denies: easy bleeding or tender lymph nodes All/Imm: Denies: urticaria or tongue swelling Medications/Allergies Home Medications Medication Instructions Recorded Confirmed Last Taken Type multivitamin with folic acid 400 1 tab PO DAILY #30 tab 05/27/19 09/10/20 Unknown Rx mcg tablet (Thera) Allergies Allergy/AdvReac Type Severity Reaction Status Date / Time No Known Allergies Allergy Verified 09/10/20 12:59 PFSH Acute PFSH: Medical History Alcohol use disorder Enterocolitis 2017 History of colon polyps Rectal polyp 10 and 15 cm, cecum biopsy Sigmoid colon polyp Seasonal allergies Smoking addiction Splenomegaly Surgical History H/O esophagogastroduodenoscopy H/O left inguinal hernia repair Status post colonoscopy with polypectomy Vasectomy status Family History Denies family history of Cancer Social History (Updated 05/22/21 @ 04:35 by Jefferson Mckeon MD) Smoking and tobacco status: current every day smoker cigarettes Number of cigarettes per day: 1-5 [ Other cigarette details: At least [id number] history, currently cutting down to several cigarettes] Alcohol intake: current Alcohol use comment: Daily Substance/Drug Use: never Lives independently: Yes Housing: House Marital status: Vitals/I&O/Wt Last Vital Signs Temp 98.6 F 05/21/21 22:57 Pulse 107 H 05/22/21 03:23 Resp 22 H 05/22/21 03:42 BP 113/82 05/22/21 03:23 Pulse Ox 92 05/22/21 03:42 05/21/21 05/21/21 05/22/21 14:59 22:59 06:59 Intake Total 1050 / 1050 Balance 1050 / 1050 Weight last 48 hrs Weight 73.482 kg Physical Exam Narrative: at bedside. Const: COMMON NORMALS: alert GENERAL APPEARANCE: cooperative ORIENTATION/CONSCIOUSNESS: Yes awake OTHER: Appears weak. HENMT: COMMON NORMALS: normocephalic, EAC's normal, Normal external nose present and moist oral mucous membranes HEAD & SCALP: normocephalic NOSE: Normal external nose present EXTERNAL AUDITORY CANAL: EAC's normal Neck/C-Spine: COMMON NORMALS: no meningeal signs Chest: CHEST: Yes Symmetrical chest wall rise Resp: COMMON NORMALS: clear to auscultation bilaterally AUSCULTATION: clear to auscultation bilaterally Cardio: COMMON NORMALS: regular rate, regular rhythm and No murmurs present (Cardio) RATE: regular rate RHYTHM: regular rhythm GI: COMMON NORMALS: Soft to palpation INSPECTION: Yes abdominal distension AUSCULTATION: Yes normoactive bowel sounds PALPATION: Yes Soft to palpation and Yes Tenderness to palpation present (GI) (Mild, diffuse) Extremity: GENERAL: Yes edema (3+) Neuro: COMMON NORMALS: moves all extremities SENSORIUM/ORIENTATION: Yes alert MENINGEAL SIGNS: Yes no meningeal signs Psych: COMMON NORMALS: mental status grossly normal Skin: COMMON NORMALS: no wounds RASHES: no rashes Data : 05/21/21 23:13 05/21/21 23:13 Micro: Microbiology 05/22/21 02:11 Blood Culture - Preliminary Blood SPECIMEN COLLECTED A&P Assessment and plan (1) Abdominal pain: Abdominal pain, distention, new ascites, with some noted tachycardia, with underlying liver cirrhosis (also new diagnosis), with nausea, reduced appetite, discussed concern for SBP. Empirically covered with ceftriaxone for now. Will need paracentesis once this is available either with surgery tomorrow or radiology on Sunday. Additionally diarrhea. Noted thickening of colonic wall, to lesser extent also small bowel wall, with possible hepatic enteropathy with portal hypertension. Will collect stool samples to exclude infectious causes. With abdominal pain, additionally hyperbilirubinemia, alk phos elevation, may have some degree of alcohol use hepatitis also with mild transaminitis AST up to 99. Will additionally assess with hepatobiliary ultrasound. Assess with hepatic duplex ultrasound to exclude thrombosis. Discussed with him and his . Clear liquids for now. Status: Acute (2) Ascites due to alcoholic cirrhosis: Will need paracentesis. For now empirically started on ceftriaxone due to possibility of SBP. Started also on Lasix, spironolactone. Hopefully will respond to diuretics, otherwise may need consideration of TIPS. SCDs for DVT prophylaxis for now. Consider additional prophylactic anticoagulation subsequently. Status: Acute (3) Liver cirrhosis: This appears to be new diagnosis, although did have fatty liver disease previously, also previously diagnosed with esophageal varices by endoscopy. Continues to daily drink alcohol, although has cut down quite significantly from before. Had a discussion with both him and his . Encouraged complete abstinence from alcohol. His meld score currently appears to be 23, although it is not entirely at baseline. If this persists, liver transplantation certainly may be something he may benefit from, but may not be a candidate due to continued daily drinking until complete abstinence. Needs to follow-up with the pathology and primary provider for continued liver cirrhosis follow-up, including screenings for hepatocellular cancer. Discussed with him his to monitor for hepatic encephalopathy. May need lactulose. So far has not had symptoms. Now also developed new ascites. Diuretics initiated. History of esophageal varices, may benefit from propranolol once more compensated. At risk of multiple additional comorbidities. Previously was taking ibuprofen occasionally. Discussed to avoid NSAIDs. Limit Tylenol to less than 2000 mg a day. Status: Acute (4) Alcohol use disorder: Encourage cessation. Case management consultation for information regarding rehabilitation possibilities. Alcohol withdrawal. Reports mild withdrawal symptoms. Denies history of delirium or seizures. Start thiamine, folic acid, Ativan by [facility] protocol. Alcoholic hepatitis, mild elevation of AST up to 99. Hyperbilirubinemia, elevated alk phos. Madrey's discriminant 12.6, not needing steroids. Status: Acute (5) Thrombocytopenia: Secondary to continued alcohol intake, has history of splenomegaly, the spleen appears normal on imaging currently. Monitor platelet counts. Encourage alcohol Status: Acute (6) Hematuria: Recently reports dark urine, with noted 1+ bilirubin, noted 4 mg/dL urobilinogen. Additionally some microscopic eventuate 25-40 RBCs. Possible hemolysis, possibly with liver cirrhosis. Denies any recent fevers, URI. We will assess with fractionated bilirubin, LDH, haptoglobin, reticulocyte count. Peripheral smear. Otherwise no stones on abdominal CT. Consider repeat UA for resolution of microscopic hematuria. May otherwise benefit from follow-up with urology for further diagnostic and exclusion of urologic malignancy given long history of smoking. Status: Acute (7) Enteropathy: Appears to have chronic enteropathy likely secondary to portal hypertension. With episodes of diarrhea, abdominal pain, will also stool studies as well. Started on diuretics as above. At risk of malabsorption. Status: Acute (8) 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: Once liver cirrhosis more compensated consider addition of nonselective beta-dimas. Status: Acute (9) Smoking addiction: He has been cutting down. Discussed with him smoking cessation for 5 minutes. Continue to encourage cessation. Nicotine replacement as discussed. Status: Acute (10) Low oxygen saturation: Incidentally noted low oxygen saturation, 90-91% on room air. He does not endorse respiratory symptoms. He has a long history of smoking, possible component of COPD or other chronic lung disease, but will assess chest x-ray. Status: Acute Plan Mild chronic eczematous rash on his back without changes Bilateral lower extremity edema: Started on diuretics as above. Transaminitis: Mild transaminitis, elevated AST up to 99. Suspect may be component of alcoholic hepatitis. We will also check CK. Attestations Medical Necessity Statement*: Admission of over 2 midnights is anticipated for assessment management of abdominal pain, new ascites in a gentleman with new diagnosis of liver cirrhosis, possible SBP, alcohol use disorder, hyperbilirubinemia and alk phos elevation, possible hemolysis, hematuria. Coding Level of Care Code Acute Jet Inspector for Chg Fwd Exam Comprehensive Diagnoses Abdominal pain R10.9 Ascites due to alcoholic cirrhosis K70.31 Liver cirrhosis K74.60 Alcohol use disorder Thrombocytopenia D69.6 Hematuria R31.9 Smoking addiction F17.200 Enteropathy K63.9 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 I85.00 Low oxygen saturation R79.81
--- NOTE | 2021-05-22 04:45 | USR_ITS ---
PROCEDURE INFORMATION: Exam: US Abdomen, Limited; Right Upper Quadrant Exam date and time: 05/22/2021 5:55 AM Age: 46 years old Clinical indication: Other: Elevated billirubin alk phos; Additional info: Hepatobiliary and perihepatic vasculature duplex, elevated bilirubin, alk phos, assess for biliary TECHNIQUE: Imaging protocol: US abdomen. Real time ultrasound with image documentation. Limited exam focused on the right upper quadrant. COMPARISON: US gall bladder [id number] 05/25/2019 2:18 AM FINDINGS: Liver: . There is a grossly nodular pattern of the liver compatible with cirrhosis. The liver is prominent measuring 19.5 cm craniocaudal dimension. Hepatic veins: Hepatopetal blood flow is documented within the hepatic veins on color Doppler and duplex waveform sonography. Gallbladder: There is gallbladder wall thickening measuring 4.7 mm. This is likely related to the patient's hypoproteinemia. Common bile duct: Normal. No stones. No dilation. Pancreas: Visualized pancreas is unremarkable. Right kidney: Normal. No mass. No hydronephrosis. Portal venous: Hepatopetal blood flow is documented within the portal vein with color Doppler and duplex waveform sonography. Intraperitoneal space: Anechoic fluid is seen compatible with ascites. US/US abdomen limited [id number] IMPRESSION: 1. Nodular contour of the liver compatible with cirrhosis. 2. Hepatomegaly 3. Gallbladder wall thickening measuring 4.7 mm likely related to the patient's hypoproteinemia. 4. Ascites 5. Correct flow seen within the portal and hepatic veins.
[2021-05-22] MEDS: FUROsemide 10 mg/mL SDV 4mL 40 MG IVP (05:46)
--- NOTE | 2021-05-22 06:00 | XRR_ITS ---
PROCEDURE INFORMATION: Exam: XR Chest Exam date and time: 05/22/2021 9:33 AM Age: 46 years old Clinical indication: Shortness of breath; Additional info: Hypoxia TECHNIQUE: Imaging protocol: XR of the chest. Views: 1 view. Other technique: Frontal portable upright view of the chest. COMPARISON: CR XR chest 1V portable [id number] 05/19/2019 10:42 AM FINDINGS: Lungs: Moderate pulmonary hypoexpansion. Mild left lateral basilar subsegmental atelectasis. The lungs are otherwise peripherally clear bilaterally. The pulmonary vasculature is normal. Pleural spaces: No pleural effusion. No pneumothorax. Heart/Mediastinum: The heart is normal in size and contour. Mediastinum: Stable. Bones/joints: Stable. XR/XR chest 1V portable [id number] IMPRESSION: 1. Moderate pulmonary hypoexpansion. 2. Mild left lateral basilar subsegmental atelectasis.
[2021-05-22 06:13] LABS: Hematocrit 34.8 % (42.0-52.0); Retic Production Index 2.35; Reticulocyte % 2.7 % (0.5-2.0)
[2021-05-22 06:34] LABS: Creatine Phosphokinase 101 U/L (39-308); Lactate Dehydrogenase 198 U/L (135-225)
[2021-05-22 06:45] LABS: LAB Peripheral Smear Sent for Review
[2021-05-22] MEDS: pantoprazole 40 mg SDV IVP (08:56)
[2021-05-22] MEDS: folic acid 1 mg Tablet PO (08:57)
[2021-05-22] MEDS: multivitamin therapeutic Tablet 1 TAB PO (08:57)
[2021-05-22] MEDS: spironolactone 25 mg Tablet PO (08:57)
[2021-05-22] MEDS: thiamine 100 mg Tablet PO (08:57)
--- NOTE | 2021-05-22 11:11 | P.PN_ITS ---
Subjective Subjective: Patient was seen and examined this morning, he was complaining of abdominal discomfort.His other Vitals and labs have been reviewed. Medications: Medication Review Details: Generic Name Dose Route Start Last Admin Trade Name Shaista PRN Reason Stop Dose Admin Acetaminophen 650 mg 05/22/21 05:12 05/22/21 11:34 Acetaminophen 32 5 Mg Tablet PO 650 mg Q6H PRN Administration Mild/Mod Pain Or Temp >/= 101 Folic Acid 1 mg 05/22/21 09:00 05/22/21 08:57 Folic Acid 1 Mg Tablet PO 1 mg DAILY CHRIS Administration Furosemide 40 mg 05/22/21 04:45 05/22/21 05:46 Furosemide 10 Mg /Ml Sdv 4ml IVP 40 mg Q24H CHRIS Administration Ceftriaxone Sodium 1,000 mg/ 50 mls @ 100 mls/ hr 05/22/21 14:00 05/22/21 15:14 Sodium Chloride IV Infused Q24H CHRIS Infusion Protocol Multivitamins Ther apeutic 1 tab 05/22/21 09:00 05/22/21 08:57 Multivitamin The rapeutic Tablet PO 1 tab DAILY CHRIS Administration Nicotine 1 patch 05/22/21 09:00 05/22/21 08:57 Nicotine 14 Mg P atch TRANSDERMA Not Given DAILY CHRIS Pantoprazole Sodiu m 40 mg 05/22/21 09:00 05/22/21 08:56 Pantoprazole 40 Mg Sdv IVP 40 mg DAILY CHRIS Administration Spironolactone 25 mg 05/22/21 09:00 05/22/21 08:57 Spironolactone 2 5 Mg Tablet PO 25 mg DAILY CHRIS Administration Thiamine Mononitra te 100 mg 05/22/21 09:00 05/22/21 08:57 Thiamine 100 Mg Tablet PO 100 mg DAILY CHRIS Administration Vitals/I&O/Wt Last Vital Signs Temp 98.2 F 05/22/21 08:00 Pulse 85 05/22/21 08:00 Resp 18 05/22/21 08:00 BP 112/70 05/22/21 08:00 Pulse Ox 96 05/22/21 08:00 05/21/21 05/22/21 05/22/21 22:59 06:59 14:59 Intake Total 1290 / 1290 Balance 1290 / 1290 Weight last 48 hrs Weight 77.111 kg Weight 73.482 kg Physical Exam Const: COMMON NORMALS: patient oriented x3 HENMT: COMMON NORMALS: normocephalic and atraumatic HEAD & SCALP: normocephalic and atraumatic Chest: COMMONS NORMALS: normal inspection of the chest and normal palpation of entire chest wall CHEST: Yes Symmetrical chest wall rise Resp: COMMON NORMALS: normal respiratory effort, No retractions, No use of accessory muscles and clear to auscultation bilaterally EFFORT & INSPECTION: Yes symmetric chest movement AUSCULTATION: clear to auscultation bilaterally Cardio: COMMON NORMALS: regular rate, regular rhythm, S1 normal heart sound present, S2 normal heart sound present, No gallops present (Cardio), No murmurs present (Cardio), No rub (Cardio) and Peripheral pulses 2+ throughout RATE: regular rate RHYTHM: regular rhythm HEART SOUNDS: S1 normal heart sound present and S2 normal heart sound present PERIPHERAL PULSES: Peripheral pulses 2+ throughout GI: COMMON NORMALS: Normal to inspection, nondistended, normoactive bowel sounds present, Soft to palpation, non-tender, No hepatosplenomegaly present and no masses AUSCULTATION: Yes normoactive bowel sounds PALPATION: Yes Soft to palpation and Yes No hepatosplenomegaly present RECTAL EXAM: Yes deferred Extremity: COMMON NORMALS: no clubbing, cyanosis or edema and no pedal edema Neuro: COMMON NORMALS: patient oriented x3 Data : 05/22/21 05:40 05/22/21 08:00 Micro: Microbiology 05/22/21 08:00 Blood Culture - Preliminary Blood SPECIMEN COLLECTED 05/22/21 02:11 Blood Culture - Preliminary Blood SPECIMEN COLLECTED A&P Assessment and plan (1) Abdominal pain: Abdominal pain, distention, new ascites, with some noted tachycardia, with underlying liver cirrhosis (also new diagnosis), with nausea, reduced appetite, discussed concern for SBP. Empirically covered with ceftriaxone for now. Will need paracentesis once this is available either with surgery tomorrow or radiology on Sunday. Additionally diarrhea. Noted thickening of colonic wall, to lesser extent also small bowel wall, with possible hepatic enteropathy with portal hypertension. Will collect stool samples to exclude infectious causes. With abdominal pain, additionally hyperbilirubinemia, alk phos elevation, may have some degree of alcohol use hepatitis also with mild transaminitis AST up to 99. Will additionally assess with hepatobiliary ultrasound. Assess with hepatic duplex ultrasound to exclude thrombosis. Discussed with him and his . Clear liquids for now. Status: Acute (2) Ascites due to alcoholic cirrhosis: Will need paracentesis. For now empirically started on ceftriaxone due to possibility of SBP. Started also on Lasix, spironolactone. Hopefully will respond to diuretics, otherwise may need consideration of TIPS. SCDs for DVT prophylaxis for now. Consider additional prophylactic anticoagulation subsequently. Status: Acute (3) Liver cirrhosis: This appears to be new diagnosis, although did have fatty liver disease previously, also previously diagnosed with esophageal varices by endoscopy. Continues to daily drink alcohol, although has cut down quite significantly from before. Had a discussion with both him and his . Encouraged complete abstinence from alcohol. His meld score currently appears to be 23, although it is not entirely at baseline. If this persists, liver transplantation certainly may be something he may benefit from, but may not be a candidate due to c ontinued daily drinking until complete abstinence. Needs to follow-up with the pathology and primary provider for continued liver cirrhosis follow-up, including screenings for hepatocellular cancer. Discussed with him his to monitor for hepatic encephalopathy. May need lactulose. So far has not had symptoms. Now also developed new ascites. Diuretics initiated. History of esophageal varices, may benefit from propranolol once more compensated. At risk of multiple additional comorbidities. Previously was taking ibuprofen occasionally. Discussed to avoid NSAIDs. Limit Tylenol to less than 2000 mg a day. Status: Acute (4) Alcohol use disorder: Encourage cessation. Case management consultation for information regarding rehabilitation possibilities. Alcohol withdrawal. Reports mild withdrawal symptoms. Denies history of delirium or seizures. Start thiamine, folic acid, Ativan by CIWA protocol. Alcoholic hepatitis, mild elevation of AST up to 99. Hyperbilirubinemia, elevated alk phos. Madrey's discriminant 12.6, not needing steroids. Status: Acute (5) Thrombocytopenia: Secondary to continued alcohol intake, has history of splenomegaly, the spleen appears normal on imaging currently. Monitor platelet counts. Encourage alcohol Status: Acute (6) Hematuria: Recently reports dark urine, with noted 1+ bilirubin, noted 4 mg/dL urobilinogen. Additionally some microscopic eventuate 25-40 RBCs. Possible hemolysis, possibly with liver cirrhosis. Denies any recent fevers, URI. We will assess with fractionated bilirubin, LDH, haptoglobin, reticulocyte count. Peripheral smear. Otherwise no stones on abdominal CT. Consider repeat UA for resolution of microscopic hematuria. May otherwise benefit from follow-up with urology for further diagnostic and exclusion of urologic malignancy given long history of smoking. Status: Acute (7) Enteropathy: Appears to have chronic enteropathy likely secondary to portal hypertension. With episodes of diarrhea, abdominal pain, will also stool studies as well. Started on diuretics as above. At risk of malabsorption. Status: Acute (8) 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: Once liver cirrhosis more compensated consider addition of nonselective beta- dimas. Status: Acute (9) Smoking addiction: He has been cutting down. Discussed with him smoking cessation for 5 minutes. Continue to encourage cessation. Nicotine replacement as discussed. Status: Acute (10) Low oxygen saturation: Incidentally noted low oxygen saturation, 90-91% on room air. He does not endorse respiratory symptoms. He has a long history of smoking, possible component of COPD or other chronic lung disease, but will assess chest x-ray. Status: Acute Plan Mild chronic eczematous rash on his back without changes Bilateral lower extremity edema: Started on diuretics as above. Transaminitis: Mild transaminitis, elevated AST up to 99. Suspect may be component of alcoholic hepatitis. We will also check CK. Attestations Medical Necessity Statement*: Patient needs to be in hospital for the management of decompensated liver cirrhosis. Time Spent in Patient Care: Greater than 35 minutes Coding Level of Care Code Acute [facility] St[facility] for [facility] Fwd Exam Detailed Diagnoses Abdominal pain R10.9 Ascites due to alcoholic cirrhosis K70.31 Liver cirrhosis K74.60 Alcohol use disorder Thrombocytopenia D69.6 Hematuria R31.9 Enteropathy K63.9 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 I85.00 Smoking addiction F17.200 Low oxygen saturation R79.81
[2021-05-22] MEDS: acetaminophen 325 mg Tablet 650 MG PO (11:34)
[2021-05-22 11:56] LABS: Basophils # 0.1 10^3/uL (0.0-0.1); Basophils % 0.8 %; Eosinophils # 0.2 10^3/uL (0.0-0.8); Eosinophils % 2.5 %; Hematocrit 35.3 % (42.0-52.0); Hemoglobin 12.1 g/dL (11.7-16.6); Lymphocytes % 17.1 %; Mean Corpuscular HGB Conc 34.3 g/dL (30.0-36.0); Mean Corpuscular Hemoglobin 35.2 pg (28.0-34.0); Mean Corpuscular Volume 102.6 fl (80-94); Mean Platelet Volume 11.6 fL (7.4-10.4); Monocytes # 1.2 10^3/uL (0.2-0.9); Monocytes % 19.8 %; Neutrophils # 3.58 10^3/uL (1.8-7.7); Neutrophils % 59.6 %; Nucleated Red Blood Cells % 0 %; Platelet Count 98 10^3/cmm (130-400); Red Blood Count 3.44 10^6/uL (4.1-5.3); Red Cell Distribution Width 16.9 % (12.1-15.1)
[2021-05-22 12:09] LABS: Alanine Aminotransferase 32 U/L (0-41); Albumin Level 3.3 g/dL (3.5-5.2); Alkaline Phosphatase 196 IU/L (40-130); Anion Gap 13.8 (5-19); Aspartate Amino Transferase 78 U/L (0-40); Blood Urea Nitrogen 5 mg/dL (6-20); Calcium 8.5 mg/dL (8.5-10.5); Carbon Dioxide 25 mmol/L (22-29); Chloride 104 mmol/L (98-107); Creatinine Clr Calc Pharmacy 132.6438; Globulin 3.1 g/dL (1.3-4.6); Glomerular Filtration Rate 120.9 mL/min (90-130); Glucose 74 mg/dL (65-115); Osmolality Calculated 284 mOsm/kg (285-295); Potassium 3.8 mmol/L (3.5-5.1); Sodium 139 mmol/L (136-145); Total Bilirubin 2.8 mg/dL (0.15-1.2); Total Protein 6.4 g/dL (6.6-8.7)
[2021-05-22] MEDS: cefTRIAXone 1,000 MG in sodium chloride 0.9% (plus) 50 ML 100 MG IV (14:16)
[2021-05-23 04:00] VITALS: BP 132/79; PULSE 80; RESP 17; TEMP 36.7; O2SAT 92
[2021-05-23 04:12] LABS: Basophils # 0.1 10^3/uL (0.0-0.1); Basophils % 1.1 %; Eosinophils # 0.3 10^3/uL (0.0-0.8); Eosinophils % 4.1 %; Hematocrit 34.5 % (42.0-52.0); Hemoglobin 11.8 g/dL (11.7-16.6); Lymphocytes # 1.1 10^3/uL (0.8-4.8); Mean Corpuscular HGB Conc 34.2 g/dL (30.0-36.0); Mean Corpuscular Hemoglobin 35.3 pg (28.0-34.0); Mean Corpuscular Volume 103.3 fl (80-94); Mean Platelet Volume 10.8 fL (7.4-10.4); Monocytes # 1.6 10^3/uL (0.2-0.9); Monocytes % 22.9 %; Neutrophils # 4.01 10^3/uL (1.8-7.7); Neutrophils % 56.6 %; Nucleated Red Blood Cells % 0 %; Platelet Count 105 10^3/cmm (130-400); Red Blood Count 3.34 10^6/uL (4.1-5.3); White Blood Count 7.1 10^3/uL (4.0-10.0)
[2021-05-23 04:25] LABS: INR 1.27 (0.8-1.2)
[2021-05-23 04:39] LABS: Alanine Aminotransferase 28 U/L (0-41); Alkaline Phosphatase 202 IU/L (40-130); Aspartate Amino Transferase 75 U/L (0-40); Blood Urea Nitrogen 8 mg/dL (6-20); Calcium 8.7 mg/dL (8.5-10.5); Carbon Dioxide 25 mmol/L (22-29); Chloride 102 mmol/L (98-107); Creatinine Clr Calc Pharmacy 116.0634; Globulin 3.5 g/dL (1.3-4.6); Glomerular Filtration Rate 103.6 mL/min (90-130); Glucose 97 mg/dL (65-115); Magnesium 1.5 mg/dL (1.7-2.3); Osmolality Calculated 278 mOsm/kg (285-295); Sodium 135 mmol/L (136-145); Thyroid Stimulating Hormone 1.89 uIU/mL (0.27-4.20); Total Bilirubin 2.6 mg/dL (0.15-1.2); Total Protein 6.5 g/dL (6.6-8.7)
[2021-05-23] MEDS: FUROsemide 10 mg/mL SDV 4mL 40 MG IVP (04:53)
--- NOTE | 2021-05-23 07:00 | US_ITS ---
WS: [id number] ULTRASOUND-GUIDED THERAPEUTIC AND DIAGNOSTIC PARACENTESIS Procedure, risks, and complications have been explained to the patient. Consent is obtained. Utilizing aseptic technique and 1% buffered lidocaine, a small dermatome was made through which a 5 F rench Yueh catheter was inserted. Approximately 5700 ml of clear yellow peritoneal fluid was obtained without difficulty. No complications encountered. Specimen collected for analysis as requested. US/US paracentesis abd w [id number] IMPRESSION: Uncomplicated paracentesis yielding 5700 ml of peritoneal fluid. Peritoneal fluid specimen collected for analysis.
[2021-05-23 07:20] VITALS: BP 112/72; PULSE 82; RESP 17; TEMP 36.8; O2SAT 91
[2021-05-23] MEDS: folic acid 1 mg Tablet PO (08:15)
[2021-05-23] MEDS: thiamine 100 mg Tablet PO (08:15)
[2021-05-23] MEDS: pantoprazole 40 mg SDV IVP (08:16)
[2021-05-23] MEDS: multivitamin therapeutic Tablet 1 TAB PO (08:16)
[2021-05-23] MEDS: spironolactone 25 mg Tablet PO (08:16)
[2021-05-23 11:10] VITALS: BP 117/76; PULSE 75; RESP 17; TEMP 36.5; O2SAT 90
[2021-05-23] MEDS: lidocaine 1% 5 ML in potassium chloride premix 100 ML 50 ML IV (11:33)
[2021-05-23] MEDS: cefTRIAXone 1,000 MG in sodium chloride 0.9% (plus) 50 ML 100 MG IV (13:45)
--- NOTE | 2021-05-23 15:19 | PM.DCS ---
Discharge Providers Date of Admission: 05/22/21 05:00 Date of Discharge: May 23, 2021 Attending Provider at Admission: Jefferson Mckeon Attending Provider at Discharge: Norberto Guan MD Diagnoses at Discharge Discharge Diagnosis (1) Abdominal pain: Status: Acute (2) Ascites due to alcoholic cirrhosis: Status: Acute (3) Liver cirrhosis: Status: Acute (4) Alcohol use disorder: Status: Acute (5) Thrombocytopenia: Status: Acute (6) Hematuria: Status: Acute (7) Enteropathy: Status: Acute (8) 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: Status: Acute (9) Smoking addiction: Status: Acute (10) Low oxygen saturation: Status: Acute Reason for Visit Reason for Visit: ABD Pain\Blood in Urine\Back Pain Hospital Course Hospital Course HPI:Jefferson Mckeon MD Pleasant 46-year-old gentleman with history of alcohol use disorder, with mild withdrawal symptoms, history of fatty liver disease, history of esophageal varices found on endoscopy, history of splenomegaly, smoking addiction, states has still been drinking alcohol daily, has been cutting down on smoking, now down to several cigarettes a day, presented to ER due to complaint of increasing diffuse abdominal pain, abdominal distention, lower extremity bilateral edema, nausea, poor appetite.? No vomiting.? Some loose stools.? Denies hematochezia or melena.? Denies fever.? In ER he is noted with sinus tachycardia, afebrile, without leukocytosis, hemoglobin 13.5, platelet level 122,000.? PT 15.6, INR 1.2.? Sodium 134.? Potassium 3.6.? Bicarb 24, anion gap 13.6.? BUN 5, creatinine 0.7.? Lactic acid 1.6.? T bili 2.9, AST 99, ALT 38, alk phos 239. UA with 1+ ketones, 2+ blood, 1+ bilirubin, 4 mg/dL urobilinogen, 25-40 RBC, 0-4 WBC, 014 squamous patella cells, 0-4 calcium oxalate crystals.? 1+ bacteria.? 4+ mucus. CT abdomen pelvis is obtained with finding of liver configuration consistent with hepatic cirrhosis.? Innumerable hypodense micronodules are noted throughout the liver, most likely representing regenerative nodules.? No suspicious masses demonstrated.? Large volume ascites throughout the abdomen and pelvis.? New when compared with 05/25/2019.? Additional signs of portal hypertension noted including the presence of varices and a small recanalized umbilical vein.? These findings are also new.? Also noted mural thickening of the colon, additional mural thickening of small bowel to a lesser extent.? Findings likely representing hepatic enteropathy.? Small umbilical hernia containing ascites.? Small right inguinal hernia also containing ascites. He and his were not aware of previously having cirrhosis.? This appears to be new diagnosis.? He was aware of previously having fatty liver and esophageal varices. He received IV fluid bolus, Zofran, morphine for pain, started on ceftriaxone. Hospital course: Was admitted for the management abdominal pain secondary to ascites secondary to decompensated liver cirrhosis secondary to chronic alcohol abuse, patient underwent ultrasound-guided paracentesis with removal of 5.7 Ls pale yellow nonbloody ascitic fluid, he was also initially started on ceftriaxone for possible SBP, Clinical suspicion for SBP is low but he has been continued on ciprofloxacin for additional 7 days, ascitic fluid analysis is pending.During this hospital stay he was also started on Lasix and spironolactone, he is being discharged on 25 mg of spironolactone po as well as 20 of Lasix p.o. he will have to follow-up with his primary care physician, as an outpatient for further dose optimization, depending upon the recurrence of Ascites.Patient has been advised to establish care with a lead based paint technician for continued management of decompensated liver cirrhosis, he has been counseled regarding not using alcohol. He also has new diagnosis of liver cirrhosis, secondary to alcohol use disorder. Patient was also managed for thrombocytopenia, secondary to alcohol use disorder.Platelet count was monitored, there was no need for platelet transfusion. He was also diagnosed with C. difficile diarrhea during the hospital stay, for which he was started on p.o. vancomycin 125 mg daily and will complete 7-day course as outpatient. Patient has overall responded well to above medical management and is being discharged in stable condition to home. Physical Exam Const: COMMON NORMALS: patient oriented x3 HENMT: COMMON NORMALS: normocephalic and atraumatic HEAD & SCALP: normocephalic and atraumatic Resp: COMMON NORMALS: clear to auscultation bilaterally EFFORT & INSPECTION: Yes symmetric chest movement AUSCULTATION: clear to auscultation bilaterally Cardio: COMMON NORMALS: regular rate, regular rhythm, S1 normal heart sound present, S2 normal heart sound present, No gallops present (Cardio), No murmurs present (Cardio), No rub (Cardio) and Peripheral pulses 2+ throughout RATE: regular rate RHYTHM: regular rhythm HEART SOUNDS: S1 normal heart sound present and S2 normal heart sound present PERIPHERAL PULSES: Peripheral pulses 2+ throughout GI: AUSCULTATION: Yes normoactive bowel sounds RECTAL EXAM: Yes deferred OTHER: Abdominal distention, no tenderness no guarding no rigidity normal bowel sounds Extremity: COMMON NORMALS: no clubbing, cyanosis or edema and no pedal edema Neuro: COMMON NORMALS: patient oriented x3 Discharge Data Studies Completed and Pending Completed Studies During Hospitalization Category Date Time Status CT abdomen pelvis w con* [id number] Urgent Cat Scan 05/21/21 23:59 Completed CXRP [XR chest 1V portable 20350] Routine Exams 05/22/21 06:00 Completed US abdomen limited [id number] Routine Ultrasound 05/22/21 04:45 Completed US paracentesis abdomen [US paracentesis abd w [id number]] Ultrasound 05/23/21 07:00 Completed Routine Pending at discharge Category Date Time Status Blood Culture Stat Lab 05/22/21 08:00 Results Body Fluid Analysis Routine Lab 05/22/21 12:53 Uncollected Body Fluid Culture & GS Routine Lab 05/22/21 12:53 Uncollected C DIFF [Clostridioides Difficile PCR] Routine Lab 05/22/21 20:05 Results Complete Blood Count w/Auto AM LABS Lab 05/24/21 04:00 Ordered Complete Blood Count w/Auto AM LABS Lab 05/25/21 04:00 Ordered Comprehensive Metabolic Panel AM LABS Lab 05/24/21 04:00 Ordered Comprehensive Metabolic Panel AM LABS Lab 05/25/21 04:00 Ordered Magnesium AM LABS Lab 05/24/21 04:00 Ordered OVA and Parasites, Conc and PE Routine Lab 05/22/21 20:05 Received Prothrombin Time INR AM LABS Lab 05/24/21 04:00 Ordered Prothrombin Time INR AM LABS Lab 05/25/21 04:00 Ordered Stool Culture, Bacterial [Enteric Bacterial Panel by Lab 05/22/21 20:05 Results PCR] Routine Urine Culture Stat Lab 05/22/21 00:15 Results Radiology Impressions Abdomen/Pelvis CT 05/21/21 23:59 IMPRESSION: 1. Liver configuration is consistent with hepatic cirrhosis. Innumerable hypodense micro nodules are noted throughout the liver, most likely representing regenerative nodules. No suspicious masses are demonstrated on this single phase study. 2. Large volume of ascites throughout the abdomen and pelvis. Is site is is new when compared to 05/25/2019. Additional signs of portal hypertension are noted, including the presence of varices in a small recanalized umbilical vein. These findings are also new. 3. There is mural thickening noted of the colon. There is additional mural thickening of the small bowel to a lesser extent noted. Findings likely represent hepatic enteropathy. 4. Small umbilical hernia containing ascites. Small right inguinal hernia, also containing ascites. Abdomen Ultrasound 05/22/21 04:45 IMPRESSION: 1. Nodular contour of the liver compatible with cirrhosis. 2. Hepatomegaly 3. Gallbladder wall thickening measuring 4.7 mm likely related to the patient's hypoproteinemia. 4. Ascites 5. Correct flow seen within the portal and hepatic veins. Chest X-Ray 05/22/21 06:00 IMPRESSION: 1. Moderate pulmonary hypoexpansion. 2. Mild left lateral basilar subsegmental atelectasis. Paracentesis Ultrasound 05/23/21 07:00 IMPRESSION: Uncomplicated paracentesis yielding 5700 ml of peritoneal fluid. Peritoneal fluid specimen collected for analysis. Laboratory Results WBC 7.1 10^3/uL (4.0-10.0) 05/23/21 02:55 RBC 3.34 10^6/uL (4.1-5.3) L 05/23/21 02:55 Hgb 11.8 g/dL (11.7-16.6) 05/23/21 02:55 Hct 34.5 % (42.0-52.0) L 05/23/21 02:55 MCV 103.3 fl (80-94) H 05/23/21 02:55 MCH 35.3 pg (28.0-34.0) H 05/23/21 02:55 MCHC 34.2 g/dL (30.0-36.0) 05/23/21 02:55 RDW 17.0 % (12.1-15.1) H 05/23/21 02:55 Plt Count 105 10^3/cmm (130-400) L 05/23/21 02:55 MPV 10.8 fL (7.4-10.4) H 05/23/21 02:55 Neut % (Auto) 56.6 % 05/23/21 02:55 Lymph % (Auto) 15.0 % 05/23/21 02:55 [place] % (Auto) 22.9 % 05/23/21 02:55 Eos % (Auto) 4.1 % 05/23/21 02:55 Baso % (Auto) 1.1 % 05/23/21 02:55 Reticulocyte % (Auto) 2.7 % (0.5-2.0) H 05/22/21 05:40 Neut # (Auto) 4.01 10^3/uL (1.8-7.7) 05/23/21 02:55 Lymph # (Auto) 1.1 10^3/uL (0.8-4.8) 05/23/21 02:55 [place] # (Auto) 1.6 10^3/uL (0.2-0.9) H 05/23/21 02:55 Eos # (Auto) 0.3 10^3/uL (0.0-0.8) 05/23/21 02:55 Baso # (Auto) 0.1 10^3/uL (0.0-0.1) 05/23/21 02:55 Nucleated RBC % (auto) 0 % 05/23/21 02:55 Nucleated RBCs # 0.0 /100WBC 05/23/21 02:55 Retic Production Index 2.35 05/22/21 05:40 Haptoglobin 54.0 mg/L (30-200) 05/22/21 05:40 PT 16.30 SECONDS (12.1-14.9) H 05/23/21 02:55 INR 1.27 (0.8-1.2) H 05/23/21 02:55 Sodium 135 mmol/L (136-145) L 05/23/21 02:55 Potassium 4.0 mmol/L (3.5-5.1) 05/23/21 02:55 Chloride 102 mmol/L (98-107) 05/23/21 02:55 Carbon Dioxide 25 mmol/L (22-29) 05/23/21 02:55 Anion Gap 12.0 (5-19) 05/23/21 02:55 BUN 8 mg/dL (6-20) 05/23/21 02:55 Creatinine 0.8 mg/dL (0.7-1.2) 05/23/21 02:55 GFR Calculation 103.6 mL/min (90-130) 05/23/21 02:55 Glucose 97 mg/dL (65-115) 05/23/21 02:55 Calculated Osmolality 278 mOsm/kg (285-295) L 05/23/21 02:55 Lactate 1.6 mmol/L (0.5-2.2) 05/22/21 02:11 Calcium 8.7 mg/dL (8.5-10.5) 05/23/21 02:55 Magnesium 1.5 mg/dL (1.7-2.3) L 05/23/21 02:55 Total Bilirubin 2.6 mg/dL (0.15-1.2) H 05/23/21 02:55 Direct Bilirubin 1.40 mg/dL (0.00-0.30) H 05/22/21 05:40 AST 75 U/L (0-40) H 05/23/21 02:55 ALT 28 U/L (0-41) 05/23/21 02:55 Alkaline Phosphatase 202 IU/L (40-130) H 05/23/21 02:55 Lactate Dehydrogenase 198 U/L (135-225) 05/22/21 05:40 Creatine Kinase 101 U/L (39-308) 05/22/21 05:40 Total Protein 6.5 g/dL (6.6-8.7) L 05/23/21 02:55 Albumin 3.0 g/dL (3.5-5.2) L 05/23/21 02:55 Globulin 3.5 g/dL (1.3-4.6) 05/23/21 02:55 Lipase 59 U/L (13-60) 05/21/21 23:13 TSH 1.89 uIU/mL (0.27-4.20) 05/23/21 02:55 Urine Color Yellow (Yellow) 05/22/21 00:15 Urine Appearance Clear (CLEAR) 05/22/21 00:15 Urine pH 5 (5-7) 05/22/21 00:15 Ur Specific [place] 1.025 (1.005-1.030) 05/22/21 00:15 Urine Protein Trace (Negative) 05/22/21 00:15 Urine Glucose (UA) Norm (Normal) 05/22/21 00:15 Urine Ketones 1+ (Negative) H 05/22/21 00:15 Urine Blood 2+ (Negative) H 05/22/21 00:15 Urine Nitrate Negative (Negative) 05/22/21 00:15 Urine Bilirubin 1+ (Negative) H 05/22/21 00:15 Urine Urobilinogen 4 mg/dL (Negative) H 05/22/21 00:15 Ur Leukocyte Esterase Negative (Negative) 05/22/21 00:15 Urine RBC 25-40 /hpf (0-2) H 05/22/21 00:15 Urine WBC 0-4 /hpf (0-5) H 05/22/21 00:15 Ur Squamous Epith Cells 0-4 /hpf (0-5) H 05/22/21 00:15 Calcium Oxalate Crystal 0-4 /hpf H 05/22/21 00:15 Amorphous Sediment Not Reportable 05/22/21 00:15 Urine Bacteria 1+ /hpf (NONE) H 05/22/21 00:15 Urine Mucus 4+ /hpf 05/22/21 00:15 Vitals Last Vital Signs Temp 97.7 F 05/23/21 11:10 Pulse 75 05/23/21 11:10 Resp 17 05/23/21 11:10 BP 117/76 05/23/21 11:10 Pulse Ox 90 05/23/21 11:10 Discharge Plan Discharge Patient Disposition: Home Condition: Stable Prescriptions: New acetaminophen 325 mg Tablet 650 mg PO Q6H PRN (Reason: Mild/Mod Pain Or Temp >/= 101) 7 Days Qty: 28 0RF spironolactone 25 mg Tablet 25 mg PO DAILY 30 Days Qty: 30 0RF folic acid 1 mg Tablet 1 mg PO DAILY 30 Days Qty: 30 0RF vancomycin 1,000 mg Recon Soln 125 mg PO QID 7 Days Qty: 28 0RF Vitamin B-1 (mononitrate) 100 mg Tablet 100 mg PO DAILY 30 Days Qty: 30 0RF Thera 400 mcg Tablet 1 tab PO DAILY 30 Days Qty: 30 0RF Lasix 20 mg tablet 20 mg PO DAILY Qty: 30 0RF ciprofloxacin HCl 500 mg tablet 500 mg PO Q12H 7 Days Qty: 14 0RF Discontinued multivitamin with folic acid [Thera] 400 mcg Tablet 1 tab PO DAILY Qty: 30 0RF Discharge Orders: Discharge Order (Routine); Ordered 05/23/21 Ordered By: Norberto Guan Referrals: [facility] [Occupational Therapist] - 05/30/21 11:30 am Discharge Diet: Regular Discharge Activity: Resume usual activity Patient Instructions: Ascites, Clostridium Difficile, Ciprofloxacin (By mouth), Spironolactone (By mouth), Furosemide (By mouth), Acetaminophen (By mouth), Folic Acid (By mouth), Vancomycin (By mouth), How to Stop Smoking (DC), Opioid Safety Discharge Attestations Time Spent in Discharge Care*: greater than 30 min Specific Discharge Activities: educating patient, educating and/or supporting family/caregiver, discussing with pcp/other providers, discussing with casework specialist/social workers/dc planners, documenting/other paperwork and evaluating patient/reviewing data Quality Metrics Clinical Quality Measures [ No reported AMI, CVA or VTE this stay] Coding Level of Care Code Acute Chg DC note Exam Detailed Diagnoses Abdominal pain R10.9 Ascites due to alcoholic cirrhosis K70.31 Liver cirrhosis K74.60 Alcohol use disorder Thrombocytopenia D69.6 Hematuria R31.9 Enteropathy K63.9 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 I85.00 Smoking addiction F17.200 Low oxygen saturation R79.81
[2021-05-23 16:00] VITALS: BP 104/68; PULSE 89; RESP 16; TEMP 36.8; O2SAT 91
--- NOTE | 2021-05-23 16:36 | PC.NURSE ---
Discharge teaching and education given to patient and , all questions were answered. IV discontinued. Patient paracentesis dressing is dry, clean, and intact. Medications sent to patients preferred pharmacy. Vital sign stable.
[2021-05-23 17:08] VITALS: BP 104/68; PULSE 89; RESP 16; TEMP 36.8; O2SAT 91
== END 2021-05-23 17:09 | disposition home or self-care (01) | DRG 433 ==
LOC: ER 05-22 03:18 → MEDSURG 05-22 04:05
PROVIDERS: Nurse Practitioner Family; Admitting Provider Internal Medicine; Emergency Provider Emergency Medicine; Visit Provider Internal Medicine
DX: K70.31 Alcoholic cirrhosis of liver with ascites (principal); I85.00 Esophageal varices without bleeding; A04.72 Enterocolitis due to Clostridium difficile, not specified as recurrent; K76.6 Portal hypertension; R79.81 Abnormal blood-gas level; F17.210 Nicotine dependence, cigarettes, uncomplicated; K63.9 Disease of intestine, unspecified; R31.9 Hematuria, unspecified; D69.6 Thrombocytopenia, unspecified; L30.9 Dermatitis, unspecified; E80.6 Other disorders of bilirubin metabolism; K42.9 Umbilical hernia without obstruction or gangrene
CPT/HCPCS: 36415; 49083; 71045; 74177; 76705; 80053; 80503; 81001; 82248; 82550; 83010; 83605; 83615; 83690; 83735; 84443; 85014; 85025; 85045; 85610; 87040; 87086; 87177; 87209; 87493; 87506; 96365; 96372; 96375; 99285; C9113; J0696; J1940; J2270; J2405; J3370; J3411; J3480; J7030; P9047; Q9967

== ENCOUNTER 2023-06-29 12:49 | Emergency (ER) | payer OTHER, SELFPAY ==
[2023-06-29 13:00] VITALS: BP 127/79; PULSE 72; RESP 18; TEMP 36.7; O2SAT 98; BMI 26.6
[2023-06-29 13:32] LABS: Basophils # 0.1 10^3/uL (0.0-0.1); Basophils % 0.9 %; Eosinophils # 0.2 10^3/uL (0.0-0.8); Hematocrit 37.6 % (37-53); Lymphocytes # 0.9 10^3/uL (0.8-4.8); Lymphocytes % 15.5 %; Mean Corpuscular HGB Conc 34.8 g/dL (30-55); Mean Corpuscular Hemoglobin 36.5 pg (27-33); Mean Corpuscular Volume 104.7 fl (82-101); Mean Platelet Volume 10.4 fL (7.4-10.4); Monocytes # 0.8 10^3/uL (0.2-0.9); Monocytes % 14.1 %; Neutrophils # 3.81 10^3/uL (1.8-7.7); Neutrophils % 66.2 %; Nucleated Red Blood Cells % 0 %; Platelet Count 137 10^3/cmm (157-399); Red Blood Count 3.59 10^6/uL (3.85-5.65); Red Cell Distribution Width 16.8 % (12.1-15.1); White Blood Count 5.75 10^3/uL (3.29-11.43)
[2023-06-29 13:44] LABS: Alanine Aminotransferase 19 U/L (0-41); Albumin Level 3.2 g/dL (3.5-5.2); Alkaline Phosphatase 172 U/L (40-130); Anion Gap 12.4 (5-19); Aspartate Amino Transferase 38 U/L (0-40); Blood Urea Nitrogen 7 mg/dL (6-20); Calcium 8.7 mg/dL (8.5-10.5); Carbon Dioxide 25 mmol/L (22-29); Chloride 103 mmol/L (98-107); Creatinine Clr Calc Pharmacy 118.6141; Glomerular Filtration Rate 102.7 mL/min (90-130); Glucose 98 mg/dL (65-115); Lipase 41 U/L (13-60); Osmolality Calculated 280 mOsm/kg (285-295); Potassium 4.4 mmol/L (3.5-5.1); Sodium 136 mmol/L (136-145); Total Bilirubin 2.8 mg/dL (0.15-1.2); Total Protein 7.2 g/dL (6.6-8.7)
--- NOTE | 2023-06-29 14:14 | CTR_ITS ---
PROCEDURE INFORMATION: Exam: CT Abdomen And Pelvis With Contrast Exam date and time: 06/29/2023 3:12 PM Age: 48 years old Clinical indication: Bloating; Prior surgery; Surgery date: 6+ months; Surgery type: Esophageal varices; Additional info: Abd pain/hx of sbp and cirrhosis and varices TECHNIQUE: Imaging protocol: Computed tomography of the abdomen and pelvis with contrast. Radiation optimization: All CT scans at this facility use at least one of these dose optimization techniques: automated exposure control; mA and/or kV adjustment per patient size (includes targeted exams where dose is matched to clinical indication); or iterative reconstruction. Contrast material: OMNI 350; Contrast volume: 100 ml; Contrast route: INTRAVENOUS (IV); COMPARISON: CT abdomen pelvis w con* [id number] 05/22/2021 12:37 AM RADIATION DOSE METRICS: Total DLP (mGy-cm): 736.8 FINDINGS: Lungs: Bibasilar discoid atelectasis and/or scarring. Liver: Severe cirrhosis with small nodular heterogeneous liver. Gallbladder and bile ducts: Normal. No calcified stones. No ductal dilation. Pancreas: Normal. No ductal dilation. Spleen: Calcified splenic granulomas. 11.8 x 14.5 cm splenomegaly. Adrenal glands: Normal. No mass. Kidneys and ureters: Normal. No hydronephrosis. Stomach and bowel: Mild bowel wall thickening in the hepatic flexure area and ascending colon suggesting infectious colitis versus portal colonopathy. Appendix: No evidence of appendicitis. Intraperitoneal space: Moderate four-quadrant ascites. Vasculature: Varices along the lesser curvature and splenic hilum and surrounding the stomach. Lymph nodes: Calcified right hilar nodes and/or mediastinal nodes and/or lung granulomas consistent with old granulomatous disease. Possible 1.9 x 1.3 x 1.2 cm lymph node versus other lesion adherent to the medial wall of the 2nd portion duodenal versus diverticulum versus neoplasm. Axial series 3, image 35, coronal series 5, image 25. Urinary bladder: Unremarkable as visualized. Reproductive: Nonspecific prostate calcifications. Bones/joints: Moderate to severe multilevel spine degenerative changes including degenerative disc disease, spondylosis and facet degenerative changes. Soft tissues: Bilateral gynecomastia. Right inguinal hernia containing ascites. Umbilical/periumbilical hernia containing ascites. CT/CT abdomen pelvis w con* [id number] IMPRESSION: 1. Possible 1.9 x 1.3 x 1.2 cm lymph node versus other lesion adherent to the medial wall of the 2nd portion duodenal versus diverticulum versus neoplasm. Axial series 3, image 35, coronal series 5, image 25. 2. Mild bowel wall thickening in the hepatic flexure area and ascending colon suggesting infectious colitis versus portal colonopathy. 3. Cirrhosis with moderate four-quadrant ascites, splenomegaly and varices.
[2023-06-29 14:31] LABS: INR 1.31 (0.8-1.2)
[2023-06-29 14:32] LABS: Partial Thromboplastin Time 32.8 SECONDS (23.9-36.7)
[2023-06-29 14:34] LABS: C Reactive Protein 15.6 mg/L (0.0-4.9); Lactic Sepsis W/Reflex 1.4 mmol/L (0.5-2.2)
--- NOTE | 2023-06-29 14:35 | PC.PHAR ---
PT IS [facility] BUT HAS HIS LIST
[2023-06-29 14:49] VITALS: BP 113/77; PULSE 75; O2SAT 99
[2023-06-29 14:58] LABS: Add Urine Microscopic? NO; Charge for UA Resulting for Rev
[2023-06-29] MEDS: ondansetron 2 mg/ML SDV 2 mL 4 MG IVP (15:00)
[2023-06-29 15:12] LABS: Bilirubin Urine Neg (Negative); Blood Urine Neg (Negative); Glucose Urine UA Norm (Normal); Ketones Urine Negative (Negative); Leukocyte Esterase Urine Negative (Negative); Nitrate Urine Negative (Negative); Protein Urine Neg (Negative); Specific Gravity, Urine 1.005 (1.005-1.030); Urine Appearance Clear (CLEAR); Urine Color Yellow (Yellow); Urobilinogen Urine 4 mg/dL (Negative); pH Urine 6.5 (5-7)
[2023-06-29] MEDS: iohexol 350 mg/mL 500 mL Btl (per mL) IV (15:12)
[2023-06-29 16:06] VITALS: BP 107/76; PULSE 75; O2SAT 99
--- NOTE | 2023-07-02 16:16 | W.ED.ABDPA2 ---
Documented by User: SHAKIRA Little 07/02/23 16:25 HPI - Abdominal Pain General: Chief Complaint: Abdominal Pain Stated Complaint: abd pain Time Seen by Provider: 06/29/23 13:47 Source: patient Mode of arrival: ambulatory Limitations: no limitations History of Present Illness: Patient is a 48-year-old male presenting to the emergency department complaining of diffuse abdominal pain for approximately 1 month, though worsening. He reports a history of spontaneous bacterial peritonitis, as he has history of cirrhosis and varices. He had paracentesis performed in [facility], states this was a few years ago and he is worried he is having this again due to similarity of symptoms. He states the pain is all over and it feels like he is constantly full. He does also note some blood in his stool. He notes he has an appointment with GI in about a month for preoperative evaluation for upper and lower scope. He is also noting some nausea. Pain is worse with palpation and eating. He is denying any fever, chest pain, shortness of breath, or other symptoms. However, he is noting along with the blood in his stool he is also having some tomy colored stool. MD elicited complaint: abdominal pain Pertinent past history: other (Cirrhosis, varices, spontaneous bacterial peritonitis) Onset (ago): month(s) Pain Consistency: constant Location: Diffuse Severity: moderate Quality: fullness Radiation: none Exacerbating factors: eating Relieving factors: nothing Associated Symptoms: Reports bloating, change in bowel habits, hematochezia and nausea; Denies change in stool character, chills, constipation, diarrhea, dysuria, fever(s) and vomiting Review of Systems General: Reports: 10 or more systems reviewed and unremarkable except in HPI and below Const: Denies: fever(s), chills, change in appetite, change in weight or diaphoresis ENMT: Denies: throat pain or hoarseness Card: Denies: chest pain, palpitations or lightheadedness Resp: Denies: dyspnea, productive cough or wheezing GI: Reports: abdominal pain, nausea, bloating, change in bowel habits and hematochezia; Denies: vomiting, diarrhea, constipation or change in stool character : Denies: flank pain, difficulty urinating, dysuria, urinary frequency or urinary urgency Musc: Denies: neck pain or back pain Skin/Breast: Denies: rash or new lesions Neuro: Denies: headache(s) or dizziness PFSH ED PFSH: Medical History Low oxygen saturation Enteropathy Smoking addiction Alcohol use disorder Thrombocytopenia Liver cirrhosis Hematuria Ascites due to alcoholic cirrhosis Abdominal pain 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 History of colon polyps Rectal polyp 10 and 15 cm, cecum biopsy Sigmoid colon polyp Seasonal allergies Splenomegaly Enterocolitis 2017 Surgical History Status post colonoscopy with polypectomy H/O esophagogastroduodenoscopy Vasectomy status H/O left inguinal hernia repair Family History Denies family history of Cancer Social History Smoking and tobacco/nicotine status: current every day tobacco/nicotine user cigarettes [ Other cigarette details: At least 40-bnpx-asvb history, currently cutting down to several cigarettes] Alcohol intake: current Substance/Drug Use: never Lives independently: Yes Housing: House Marital status: Physical Exam Const: COMMON NORMALS: no acute distress, average body habitus, patient oriented x3, no limitations, healthy appearing, alert and well nourished GENERAL APPEARANCE: cooperative and comfortable ORIENTATION/CONSCIOUSNESS: Yes awake HENMT: COMMON NORMALS: normocephalic, atraumatic, hearing grossly normal bilaterally, external ears normal, Normal external nose present, Normal nasal mucous membranes and turbinates present and moist oral mucous membranes HEAD & SCALP: normocephalic and atraumatic NOSE: Normal external nose present and Normal nasal mucous membranes and turbinates present EXTERNAL EAR: Yes external ears normal Eye: COMMON NORMALS: Equal, round and reactive pupils present, EOMs intact bilaterally, conjunctivae normal and normal visual collier by confrontation CONJUNCTIVA: Yes conjunctivae normal PUPIL: Yes Equal, round and reactive pupils present Neck/C-Spine: COMMON NORMALS: full ROM, supple, no meningeal signs and no JVD Resp: COMMON NORMALS: normal respiratory effort, No retractions, No use of accessory muscles and clear to auscultation bilaterally AUSCULTATION: clear to auscultation bilaterally, no crackles, no rales, no rhonchi and no wheezes Cardio: COMMON NORMALS: no JVD, regular rate, regular rhythm, S1 normal heart sound present, S2 normal heart sound present, No gallops present (Cardio), No clicks present (Cardio), No murmurs present (Cardio), No rub (Cardio) and Peripheral pulses 2+ throughout RATE: regular rate RHYTHM: regular rhythm HEART SOUNDS: S1 normal heart sound present and S2 normal heart sound present PERIPHERAL PULSES: Peripheral pulses 2+ throughout GI: COMMON NORMALS: Normal to inspection, nondistended, normoactive bowel sounds present, Soft to palpation, No hepatosplenomegaly present and no masses INSPECTION: No caput medusae present and No Fluid wave present AUSCULTATION: Yes normoactive bowel sounds PALPATION: Yes Soft to palpation, Yes Tenderness to palpation present (GI) (Mild, diffuse), No Guarding due to palpation present (GI), No Rigid due to palpation and Yes No hepatosplenomegaly present PERCUSSION: no fluid wave RECTAL EXAM: Yes deferred : COMMON NORMALS: Yes no CVA tenderness BLADDER/KIDNEY EXAM: Yes no CVA tenderness Back/Pelvis: COMMON NORMALS: no CVA tenderness Extremity: COMMON NORMALS: normal to inspection and full ROM Neuro: COMMON NORMALS: patient oriented x3, moves all extremities, no focal motor deficits and no sensory deficits noted SENSORIUM/ORIENTATION: Yes alert MENINGEAL SIGNS: Yes no meningeal signs Psych: COMMON NORMALS: mental status grossly normal, cooperative and speech normal SPEECH: Yes normal speech Skin: COMMON NORMALS: no rashes or lesions noted GENERAL SKIN EXAM: no rashes or lesions noted Course Vital Signs: Vital signs: Vital Signs Temperature 98.0 F 06/29/23 13:00 Pulse Rate 75 06/29/23 16:06 Respiratory Rate 18 06/29/23 13:00 Blood Pressure 107/76 06/29/23 16:06 Pulse Oximetry 99 06/29/23 16:06 Oxygen Delivery Me thod Room Air 06/29/23 13:00 MDM - Abdominal Pain Medical Decision Making Patient was seen for 1 month of abdominal pain, stating this felt similar to an episode of spontaneous bacterial peritonitis. History of cirrhosis and varices. On arrival patient's vitals unremarkable, condition has remained stable throughout ED course. He has appointment with GI for an upper and lower scope for reevaluation. This is in July. His laboratory examination essentially unremarkable. CT of the abdomen pelvis showed evidence of colitis, also commenting on a lesion, neoplasm not ruled out. Informed patient of these findings and importance of following up for evaluation of this, as he already has a scope planned. Will prescribe Cipro and Flagyl, and give Zofran for his nausea. Suspicion of SBP or esophageal variceal bleeding very low at this point, however I did inform patient of reasons to return including hematemesis or severe retrosternal pain. He endorses understanding and will return for reevaluation with any new or concerning symptoms he may have. All other questions and concerns are addressed. Lab Data 06/29/23 13:15 06/29/23 13:15 Labs/Radiology: Radiology Impressions Abdomen/Pelvis CT 06/29/23 14:14 IMPRESSION: 1. Possible 1.9 x 1.3 x 1.2 cm lymph node versus other lesion adherent to the medial wall of the 2nd portion duodenal versus diverticulum versus neoplasm. Axial series 3, image 35, coronal series 5, image 25. 2. Mild bowel wall thickening in the hepatic flexure area and ascending colon suggesting infectious colitis versus portal colonopathy. 3. Cirrhosis with moderate four-quadrant ascites, splenomegaly and varices. Laboratory Results WBC 5.75 10^3/uL (3.29-11.43) 06/29/23 13:15 RBC 3.59 10^6/uL (3.85-5.65) L 06/29/23 13:15 Hgb 13.10 g/dL (11.27-16.99) 06/29/23 13:15 Hct 37.6 % (37-53) 06/29/23 13:15 MCV 104.7 fl (82-101) H 06/29/23 13:15 MCH 36.5 pg (27-33) H 06/29/23 13:15 MCHC 34.8 g/dL (30-55) 06/29/23 13:15 RDW 16.8 % (12.1-15.1) H 06/29/23 13:15 Plt Count 137 10^3/cmm (157-399) L 06/29/23 13:15 MPV 10.4 fL (7.4-10.4) 06/29/23 13:15 Neut % (Auto) 66.2 % 06/29/23 13:15 Lymph % (Auto) 15.5 % 06/29/23 13:[address] [place] % (Auto) 14.1 % 06/29/23 13:15 Eos % (Auto) 3.0 % 06/29/23 13:15 Baso % (Auto) 0.9 % 06/29/23 13:15 Neut # (Auto) 3.81 10^3/uL (1.8-7.7) 06/29/23 13:15 Lymph # (Auto) 0.9 10^3/uL (0.8-4.8) 06/29/23 13:[address] [place] # (Auto) 0.8 10^3/uL (0.2-0.9) 06/29/23 13:15 Eos # (Auto) 0.2 10^3/uL (0.0-0.8) 06/29/23 13:15 Baso # (Auto) 0.1 10^3/uL (0.0-0.1) 06/29/23 13:15 Nucleated RBC % (auto) 0 % 06/29/23 13:15 Nucleated RBCs # 0.0 /100WBC 06/29/23 13:15 PT 16.70 SECONDS (12.1-14.9) H 06/29/23 13:15 INR 1.31 (0.8-1.2) H 06/29/23 13:15 APTT 32.8 SECONDS (23.9-36.7) 06/29/23 13:15 Sodium 136 mmol/L (136-145) 06/29/23 13:15 Potassium 4.4 mmol/L (3.5-5.1) 06/29/23 13:15 Chloride 103 mmol/L (98-107) 06/29/23 13:15 Carbon Dioxide 25 mmol/L (22-29) 06/29/23 13:15 Anion Gap 12.4 (5-19) 06/29/23 13:15 BUN 7 mg/dL (6-20) 06/29/23 13:15 Creatinine 0.8 mg/dL (0.7-1.2) 06/29/23 13:15 GFR Calculation 102.7 mL/min (90-130) 06/29/23 13:15 Glucose 98 mg/dL (65-115) 06/29/23 13:15 Calculated Osmolality 280 mOsm/kg (285-295) L 06/29/23 13:15 Lactic Acid 1.4 mmol/L (0.5-2.2) 06/29/23 13:15 Calcium 8.7 mg/dL (8.5-10.5) 06/29/23 13:15 Total Bilirubin 2.8 mg/dL (0.15-1.2) H 06/29/23 13:15 AST 38 U/L (0-40) 06/29/23 13:15 ALT 19 U/L (0-41) 06/29/23 13:15 Alkaline Phosphatase 172 U/L (40-130) H 06/29/23 13:15 C-Reactive Protein 15.6 mg/L (0.0-4.9) H 06/29/23 13:15 Total Protein 7.2 g/dL (6.6-8.7) 06/29/23 13:15 Albumin 3.2 g/dL (3.5-5.2) L 06/29/23 13:15 Globulin 4.0 g/dL (1.3-4.6) 06/29/23 13:15 Lipase 41 U/L (13-60) 06/29/23 13:15 Urine Color Yellow (Yellow) 06/29/23 14:35 Urine Appearance Clear (CLEAR) 06/29/23 14:35 Urine pH 6.5 (5-7) 06/29/23 14:35 Ur Specific Dozier 1.005 (1.005-1.030) 06/29/23 14:35 Urine Protein Neg (Negative) 06/29/23 14:35 Urine Glucose (UA) Norm (Normal) 06/29/23 14:35 Urine Ketones Negative (Negative) 06/29/23 14:35 Urine Blood Neg (Negative) 06/29/23 14:35 Urine Nitrate Negative (Negative) 06/29/23 14:35 Urine Bilirubin Neg (Negative) 06/29/23 14:35 Urine Urobilinogen 4 mg/dL (Negative) H 06/29/23 14:35 Ur Leukocyte Esterase Negative (Negative) 06/29/23 14:35 All radiology interpretation(s) finalized by discharge Discharge Plan Discharge Patient Disposition: Home Clinical Impression: Colitis Condition: Stable Prescriptions: New metronidazole 500 mg tablet 500 mg PO BID 7 Days Qty: 14 0RF Cipro 500 mg tablet 500 mg PO BID 10 Days Qty: 20 0RF ondansetron HCl 4 mg tablet 4 mg PO Q8H Qty: 30 0RF No Action hydrocodone-acetaminophen 5-325 mg tablet 1 tab PO Q6H PRN (Reason: Pain) spironolactone 25 mg Tablet 25 mg PO DAILY nadolol 20 mg tablet 20 mg PO DAILY pantoprazole 40 mg tablet,delayed release (DR/EC) 40 mg PO DAILY allopurinol 300 mg Tablet 300 mg PO DAILY Discharge Orders: Discharge ED (Routine); Ordered 06/29/23 Ordered By: Edu Ordonez Discharge Diet: GI Soft Discharge Activity: Increase activity as tolerated Patient Instructions: Colitis (ED) Activity Restrictions/Additional Instructions: Cipro and Flagyl as prescribed. Zofran for nausea as needed. Plenty of fluids. Follow-up for upper endoscopy as scheduled, and follow-up with primary care to discuss ED visit and further evaluation. Return with any new or concerning symptoms you may have. Coding Level of Care Code ED Analog Ic Design Engineer for Chg Fwd Documented by User: Garth Wright DO 07/02/23 16:30 HPI - Abdominal Pain General: Chief Complaint: Abdominal Pain Stated Complaint: abd pain Time Seen by Provider: 06/29/23 13:47 PFSH ED PFSH: Medical History Low oxygen saturation Enteropathy Smoking addiction Alcohol use disorder Thrombocytopenia Liver cirrhosis Hematuria Ascites due to alcoholic cirrhosis Abdominal pain 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 History of colon polyps Rectal polyp 10 and 15 cm, cecum biopsy Sigmoid colon polyp Seasonal allergies Splenomegaly Enterocolitis 2016 Surgical History Status post colonoscopy with polypectomy H/O esophagogastroduodenoscopy Vasectomy status H/O left inguinal hernia repair Family History Denies family history of Cancer Social History Smoking and tobacco/nicotine status: current every day tobacco/nicotine user cigarettes [ Other cigarette details: At least 23-pryu-weln history, currently cutting down to several cigarettes] Alcohol intake: current Substance/Drug Use: never Lives independently: Yes Housing: House Marital status: Course Vital Signs: Vital signs: Vital Signs Temperature 98.0 F 06/29/23 13:00 Pulse Rate 75 06/29/23 16:06 Respiratory Rate 18 06/29/23 13:00 Blood Pressure 107/76 06/29/23 16:06 Pulse Oximetry 99 06/29/23 16:06 Oxygen Delivery Me thod Room Air 06/29/23 13:00 MDM - Abdominal Pain Medical Decision Making Patient was seen for 1 month of abdominal pain, stating this felt similar to an episode of spontaneous bacterial peritonitis. History of cirrhosis and varices. On arrival patient's vitals unremarkable, condition has remained stable throughout ED course. He has appointment with GI for an upper and lower scope for reevaluation. This is in July. His laboratory examination essentially unremarkable. CT of the abdomen pelvis showed evidence of colitis, also commenting on a lesion, neoplasm not ruled out. Informed patient of these findings and importance of following up for evaluation of this, as he already has a scope planned. Will prescribe Cipro and Flagyl, and give Zofran for his nausea. Suspicion of SBP or esophageal variceal bleeding very low at this point, however I did inform patient of reasons to return including hematemesis or severe retrosternal pain. He endorses understanding and will return for reevaluation with any new or concerning symptoms he may have. All other questions and concerns are addressed. Chart reviewed Lab Data 06/29/23 13:15 06/29/23 13:15 Labs/Radiology: Radiology Impressions Abdomen/Pelvis CT 06/29/23 14:14 IMPRESSION: 1. Possible 1.9 x 1.3 x 1.2 cm lymph node versus other lesion adherent to the medial wall of the 2nd portion duodenal versus diverticulum versus neoplasm. Axial series 3, image 35, coronal series 5, image 25. 2. Mild bowel wall thickening in the hepatic flexure area and ascending colon suggesting infectious colitis versus portal colonopathy. 3. Cirrhosis with moderate four-quadrant ascites, splenomegaly and varices. Laboratory Results WBC 5.75 10^3/uL (3.29-11.43) 06/29/23 13:15 RBC 3.59 10^6/uL (3.85-5.65) L 06/29/23 13:15 Hgb 13.10 g/dL (11.27-16.99) 06/29/23 13:15 Hct 37.6 % (37-53) 06/29/23 13:15 MCV 104.7 fl (82-101) H 06/29/23 13:15 MCH 36.5 pg (27-33) H 06/29/23 13:15 MCHC 34.8 g/dL (30-55) 06/29/23 13:15 RDW 16.8 % (12.1-15.1) H 06/29/23 13:15 Plt Count 137 10^3/cmm (157-399) L 06/29/23 13:15 MPV 10.4 fL (7.4-10.4) 06/29/23 13:15 Neut % (Auto) 66.2 % 06/29/23 13:15 Lymph % (Auto) 15.5 % 06/29/23 13:15 [place] % (Auto) 14.1 % 06/29/23 13:15 Eos % (Auto) 3.0 % 06/29/23 13:15 Baso % (Auto) 0.9 % 06/29/23 13:15 Neut # (Auto) 3.81 10^3/uL (1.8-7.7) 06/29/23 13:15 Lymph # (Auto) 0.9 10^3/uL (0.8-4.8) 06/29/23 13:15 [place] # (Auto) 0.8 10^3/uL (0.2-0.9) 06/29/23 13:15 Eos # (Auto) 0.2 10^3/uL (0.0-0.8) 06/29/23 13:15 Baso # (Auto) 0.1 10^3/uL (0.0-0.1) 06/29/23 13:15 Nucleated RBC % (auto) 0 % 06/29/23 13:15 Nucleated RBCs # 0.0 /100WBC 06/29/23 13:15 PT 16.70 SECONDS (12.1-14.9) H 06/29/23 13:15 INR 1.31 (0.8-1.2) H 06/29/23 13:15 APTT 32.8 SECONDS (23.9-36.7) 06/29/23 13:15 Sodium 136 mmol/L (136-145) 06/29/23 13:15 Potassium 4.4 mmol/L (3.5-5.1) 06/29/23 13:15 Chloride 103 mmol/L (98-107) 06/29/23 13:15 Carbon Dioxide 25 mmol/L (22-29) 06/29/23 13:15 Anion Gap 12.4 (5-19) 06/29/23 13:15 BUN 7 mg/dL (6-20) 06/29/23 13:15 Creatinine 0.8 mg/dL (0.7-1.2) 06/29/23 13:15 GFR Calculation 102.7 mL/min (90-130) 06/29/23 13:15 Glucose 98 mg/dL (65-115) 06/29/23 13:15 Calculated Osmolality 280 mOsm/kg (285-295) L 06/29/23 13:15 Lactic Acid 1.4 mmol/L (0.5-2.2) 06/29/23 13:15 Calcium 8.7 mg/dL (8.5-10.5) 06/29/23 13:15 Total Bilirubin 2.8 mg/dL (0.15-1.2) H 06/29/23 13:15 AST 38 U/L (0-40) 06/29/23 13:15 ALT 19 U/L (0-41) 06/29/23 13:15 Alkaline Phosphatase 172 U/L (40-130) H 06/29/23 13:15 C-Reactive Protein 15.6 mg/L (0.0-4.9) H 06/29/23 13:15 Total Protein 7.2 g/dL (6.6-8.7) 06/29/23 13:15 Albumin 3.2 g/dL (3.5-5.2) L 06/29/23 13:15 Globulin 4.0 g/dL (1.3-4.6) 06/29/23 13:15 Lipase 41 U/L (13-60) 06/29/23 13:15 Urine Color Yellow (Yellow) 06/29/23 14:35 Urine Appearance Clear (CLEAR) 06/29/23 14:35 Urine pH 6.5 (5-7) 06/29/23 14:35 Ur Specific [place] 1.005 (1.005-1.030) 06/29/23 14:35 Urine Protein Neg (Negative) 06/29/23 14:35 Urine Glucose (UA) Norm (Normal) 06/29/23 14:35 Urine Ketones Negative (Negative) 06/29/23 14:35 Urine Blood Neg (Negative) 06/29/23 14:35 Urine Nitrate Negative (Negative) 06/29/23 14:35 Urine Bilirubin Neg (Negative) 06/29/23 14:35 Urine Urobilinogen 4 mg/dL (Negative) H 06/29/23 14:35 Ur Leukocyte Esterase Negative (Negative) 06/29/23 14:35 Discharge Plan Discharge Patient Disposition: Home Clinical Impression: Colitis Condition: Stable Prescriptions: New metronidazole 500 mg tablet 500 mg PO BID 7 Days Qty: 14 0RF Cipro 500 mg tablet 500 mg PO BID 10 Days Qty: 20 0RF ondansetron HCl 4 mg tablet 4 mg PO Q8H Qty: 30 0RF No Action hydrocodone-acetaminophen 5-325 mg tablet 1 tab PO Q6H PRN (Reason: Pain) spironolactone 25 mg Tablet 25 mg PO DAILY nadolol 20 mg tablet 20 mg PO DAILY pantoprazole 40 mg tablet,delayed release (DR/EC) 40 mg PO DAILY allopurinol 300 mg Tablet 300 mg PO DAILY Discharge Orders: Discharge ED (Routine); Ordered 06/29/23 Ordered By: Edu Ordonez Discharge Diet: GI Soft Discharge Activity: Increase activity as tolerated Patient Instructions: Colitis (ED) Activity Restrictions/Additional Instructions: Cipro and Flagyl as prescribed. Zofran for nausea as needed. Plenty of fluids. Follow-up for upper endoscopy as scheduled, and follow-up with primary care to discuss ED visit and further evaluation. Return with any new or concerning symptoms you may have. Coding Level of Care Code ED Analog Ic Design Engineer for Jess López
== END 2023-06-29 16:07 | disposition home or self-care (01) ==
PROVIDERS: Emergency Medicine; Emergency Provider Physician Assistant
DX: K52.9 Noninfective gastroenteritis and colitis, unspecified (principal); F17.210 Nicotine dependence, cigarettes, uncomplicated
CPT/HCPCS: 36415; 74177; 80053; 81003; 83605; 83690; 85025; 85610; 85730; 86140; 96374; 99285; J2405; Q9967

== ENCOUNTER 2023-10-20 20:09 | Inpatient (IN) | payer OTHER, SELFPAY ==
[2023-10-20] VITALS (12 sets, daily range): BP systolic 75–89; BP diastolic 42–53; PULSE 72–79; RESP 17–22; TEMP 37.1; O2SAT 91–96; BMI 26.2
--- NOTE | 2023-10-20 21:08 | CTR_ITS ---
PROCEDURE INFORMATION: Exam: CT Abdomen And Pelvis With Contrast Exam date and time: 10/20/2023 11:15 PM Age: 48 years old Clinical indication: Bloating; Abdominal pain; Prior surgery; Surgery date: 6+ months; Surgery type: Left inguinal hernia. Vasectomy; Patient HX: Generalized abd pain with distention. Hypotensive. History of cirrhosis. ; Additional info: Abd pain, paracentesis on mondaty, HX of cirrhosis and sbp TECHNIQUE: Imaging protocol: Computed tomography of the abdomen and pelvis with contrast. Radiation optimization: All CT scans at this facility use at least one of these dose optimization techniques: automated exposure control; mA and/or kV adjustment per patient size (includes targeted exams where dose is matched to clinical indication); or iterative reconstruction. Contrast material: OMNI 350; Contrast volume: 100 ml; Contrast route: INTRAVENOUS (IV); COMPARISON: CT abdomen pelvis w con* [id number] 06/29/2023 3:12 PM RADIATION DOSE METRICS: Total DLP (mGy-cm): 639.36 FINDINGS: Lungs: Mild dependent changes in the posterior lower lobes. Heart: Mild cardiomegaly. No pericardial effusion or pericardial thickening. Liver: Markedly nodular liver surface compatible with hepatic cirrhosis. Moderate areas of hypodensity are nonspecific. Masses are not excluded. Gallbladder and biliary ducts: Mild nonspecific gallbladder wall thickening, likely related to portal hypertension. Pancreas: The pancreas is normal. Spleen: Spleen is mildly enlarged, stable. Adrenal glands: The adrenal glands are normal. Kidneys and ureters: There is normal enhancement of the kidneys. No renal calcifications are identified. There is no hydronephrosis. Stomach and bowel: Moderate gastric mucosal thickening. Mild diffuse small bowel wall thickening. Appendix: A normal appendix is identified. Intraperitoneal space: Moderate ascites and mesenteric edema. Diffuse right and transverse colonic wall thickening likely related to mesenteric edema, mildly worsened compared to prior study. No evidence of large or small bowel obstruction. Vasculature: Atherosclerotic calcifications of the aorta are present. No aneurysm is identified. Paraesophageal and gastric varices. Lymph nodes: No enlarged lymph nodes are identified. Urinary bladder: The bladder is decompressed and collapsed. No abnormality identified. Reproductive: The prostate is grossly unremarkable. Bones/joints: No acute osseous abnormalities are seen. Soft tissues: Moderate to marked gynecomastia. Fawectgv-[id number]-konas periumbilical hernia containing fluid. Moderate right inguinal hernia containing fluid. CT/CT abdomen pelvis w con* [id number] IMPRESSION: 1. Hepatic cirrhosis with evidence of portal hypertension including ascites, mesenteric edema, splenomegaly, portosystemic collaterals, nonspecific gallbladder wall thickening. Areas of decreased attenuation in the hepatic parenchyma are nonspecific and masses are not excluded on single phase imaging. 2. Diffuse gastric wall thickening, areas of small bowel wall thickening, and colonic wall thickening all likely related to portal hypertension, worsened compared to prior.
--- NOTE | 2023-10-20 21:11 | ED_ITS ---
Documented by User: SHAKIRA Little 10/22/23 16:45 HPI - Abdominal Pain 2 General: Chief Complaint: Abdominal Pain Stated Complaint: abd pain Time Seen by Provider: 10/20/23 21:02 Source: patient Mode of arrival: ambulatory Limitations: no limitations History of Present Illness: Patient is a 48-year-old male presenting to the emergency department complaining of abdominal pain that began today. He has a history of liver cirrhosis and in the past has had spontaneous bacterial peritonitis as well as esophageal varices. He had 4-1/2 L drained off of his abdomen via paracentesis on Sunday. He is also reporting some associated nausea and dry heaving today, as well as high fevers. Patient was seen at [facility] in [place] last week for the same thing, and this is what prompted him to have fluid removed. Had fluid removed prior in May 2021. Spouse in the room also states he did seem somewhat disoriented when he woke up from a nap today, and has been sleeping all day. Reportedly he has been spending a lot of time in the heat over the past couple of days and has been dehydrated. Patient afebrile on arrival, blood pressure noted to be low, as patient did just take his beta-dimas. He is requesting something for pain at this time, denies vomiting, blood in vomit, changes in bowel habits, chest pain, shortness of breath, or other symptoms at this time. MD elicited complaint: abdominal pain Pertinent past history: other (Cirrhosis of the liver) Onset (ago): day(s) Pain Consistency: constant Location: Diffuse Severity: severe Quality: fullness Associated Symptoms: Reports fever(s) and nausea; Denies bloating, change in stool character, chills, constipation, diarrhea, dysuria, hematochezia, hematemesis and vomiting Related Data Home Medications Medication Instructions Recorded Confirmed allopurinol 300 mg tablet 300 mg PO DAILY 06/29/23 10/24/23 nadolol 20 mg tablet 20 mg PO DAILY 06/29/23 10/24/23 pantoprazole 40 mg tablet,delayed 40 mg PO DAILY 06/29/23 10/24/23 release spironolactone 25 mg tablet 50 mg PO DAILY 06/29/23 10/21/23 furosemide 40 mg tablet 40 mg PO DAILY 09/01/24 09/04/24 Previous Rx's Medication Instructions Recorded ondansetron HCl 4 mg tablet 4 mg PO Q8H #30 tabs 06/29/23 Allergies Allergy/AdvReac Type Severity Reaction Status Date / Time No Known Allergies Allergy Verified 10/20/23 20:55 Review of Systems 2 General: Reports: 10 or more systems reviewed and unremarkable except in HPI and below Const: Reports: fever(s); Denies: chills, change in appetite, change in weight or diaphoresis ENMT: Denies: throat pain or hoarseness Card: Denies: chest pain, palpitations or lightheadedness Resp: Denies: dyspnea, productive cough or wheezing GI: Reports: abdominal pain and nausea; Denies: vomiting, hematemesis, diarrhea, constipation, bloating, change in stool character or hematochezia : Denies: flank pain, difficulty urinating, dysuria, urinary frequency or urinary urgency Musc: Denies: neck pain or back pain Skin/Breast: Denies: rash or new lesions Neuro: Denies: headache(s) or dizziness PFSH ED 2 PFSH: Medical History (Updated 10/21/23 @ 16:08 by Fortino Wagoner MD) Acute hepatic failure Abdominal ascites Smoker Colitis Low oxygen saturation Enteropathy Smoking addiction Alcohol use disorder Thrombocytopenia Liver cirrhosis Hematuria Ascites due to alcoholic cirrhosis Abdominal pain 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 History of colon polyps Rectal polyp 10 and 15 cm, cecum biopsy Sigmoid colon polyp Seasonal allergies Splenomegaly Enterocolitis 2016 Surgical History Status post colonoscopy with polypectomy H/O esophagogastroduodenoscopy Vasectomy status H/O left inguinal hernia repair Family History Denies family history of Cancer Social History Smoking and tobacco/nicotine status: current every day tobacco/nicotine user cigarettes [ Other cigarette details: At least 66-bgsy-cvty history, currently cutting down to several cigarettes] Alcohol intake: current Substance/Drug Use: never Lives independently: Yes Housing: House Marital status: Physical Exam 2 Const: COMMON NORMALS: average body habitus, patient oriented x3, no limitations, alert and well nourished GENERAL APPEARANCE: cooperative O RIENTATION/CONSCIOUSNESS: Yes awake OTHER: Jaundiced, tired appearing HENMT: COMMON NORMALS: normocephalic, atraumatic, hearing grossly normal bilaterally, external ears normal, Normal external nose present and Normal nasal mucous membranes and turbinates present HEAD & SCALP: normocephalic and atraumatic NOSE: Normal external nose present and Normal nasal mucous membranes and turbinates present EXTERNAL EAR: Yes external ears normal O THER: Dry oral mucosa Eye: COMMON NORMALS: Equal, round and reactive pupils present, EOMs intact bilaterally and normal visual collier by confrontation CONJUNCTIVA: Yes conjunctival abnormal positive bilateral conjunctival icterus PUPIL: Yes Equal, round and reactive pupils present Neck/C-Spine: COMMON NORMALS: full ROM, supple, no meningeal signs and no JVD Resp: COMMON NORMALS: normal respiratory effort, No retractions, No use of accessory muscles and clear to auscultation bilaterally AUSCULTATION: clear to auscultation bilaterally, no crackles, no rales, no rhonchi and no wheezes Cardio: COMMON NORMALS: no JVD, regular rate, regular rhythm, S1 normal heart sound present, S2 normal heart sound present, No gallops present (Cardio), No clicks present (Cardio), No murmurs present (Cardio), No rub (Cardio) and Peripheral pulses 2+ throughout RATE: regular rate RHYTHM: regular rhythm HEART SOUNDS: S1 normal heart sound present and S2 normal heart sound present PERIPHERAL PULSES: Peripheral pulses 2+ throughout GI: COMMON NORMALS: No hepatosplenomegaly present and no masses INSPECTION: Yes abdominal distension and Yes striae AUSCULTATION: Yes normoactive bowel sounds PALPATION: Yes Tenderness to palpation present (GI) (Moderate to severe tenderness to palpation diffusely), No Guarding due to palpation present (GI), No Rigid due to palpation and Yes No hepatosplenomegaly present RECTAL EXAM: Yes deferred OTHER: Umbilical hernia : COMMON NORMALS: Yes no CVA tenderness BLADDER/KIDNEY EXAM: Yes no CVA tenderness Back/Pelvis: COMMON NORMALS: no CVA tenderness Extremity: COMMON NORMALS: normal to inspection and full ROM Neuro: COMMON NORMALS: patient oriented x3, moves all extremities, no focal motor deficits and no sensory deficits noted SENSORIUM/ORIENTATION: Yes alert MENINGEAL SIGNS: Yes no meningeal signs Psych: COMMON NORMALS: mental status grossly normal, cooperative and speech normal SPEECH: Yes normal speech Skin: COMMON NORMALS: no rashes or lesions noted GENERAL SKIN EXAM: no rashes or lesions noted Course 2 Vital Signs: Vital signs: Vital Signs Temperature 98.2 F 10/27/23 15:36 Pulse Rate 77 10/27/23 15:36 Respiratory Rate 16 10/27/23 15:36 Blood Pressure 101/64 10/27/23 15:36 Pulse Oximetry 97 10/27/23 15:36 Oxygen Delivery Me thod Room Air 10/27/23 15:36 Oxygen Flow Rate 2 10/22/23 12:30 MDM - Abdominal Pain Medical Decision Making This patient presented with this patient has a history of liver cirrhosis as well as SBP and presents with abdominal pain today. History of similar, reportedly was seen at [facility] about a week ago and subsequently had 4-1/2 L of fluid drained off of his abdomen via paracentesis. He arrives hypotensive, on 2 L of oxygen. Workup revealed a lactic of 3.8, was started on sepsis bolus fluids as well as Vanco and Zosyn. CT abdomen obtained showing advanced cirrhosis, Dr. Mason was involved with patient who placed a central line and obtained diagnostic paracentesis culture. Dr. Mcginnis was consulted who accepts the patient to the ICU. Dr. Mcginnis had recommended starting Levophed through the central line with no other recommendations at this time. This patient was originally seen by Mr. José Luis PA-C.? I agree with his history, evaluation, and treatment. Lab Data 10/26/23 04:55 10/27/23 06:31 Labs/Radiology: Radiology Impressions Abdomen/Pelvis CT 10/20/23 21:08 IMPRESSION: 1. Hepatic cirrhosis with evidence of portal hypertension including ascites, mesenteric edema, splenomegaly, portosystemic collaterals, nonspecific gallbladder wall thickening. Areas of decreased attenuation in the hepatic parenchyma are nonspecific and masses are not excluded on single phase imaging. 2. Diffuse gastric wall thickening, areas of small bowel wall thickening, and colonic wall thickening all likely related to portal hypertension, worsened compared to prior. Chest X-Ray 10/20/23 23:36 IMPRESSION: New right internal jugular venous catheter terminating deep in the right atrium. Liver Ultrasound 10/21/23 08:31 IMPRESSION: Marked ascites with hepatic cirrhosis. Inhomogeneous liver without discrete mass. MRI recommended for further assessment of abnormality seen on prior CT given higher sensitivity and specificity for pathology in the setting of cirrhosis. Laboratory Results WBC 19.26 10^3/uL (3.29-11.43) H 10/20/23 21:38 RBC 3.18 10^6/uL (3.85-5.65) L 10/20/23 21:38 Hgb 11.70 g/dL (11.27-16.99) 10/20/23 21:38 Hct 32.5 % (37-53) L 10/20/23 21:38 MCV 102.2 fl (82-101) H 10/20/23 21:38 MCH 36.8 pg (27-33) H 10/20/23 21:38 MCHC 36.0 g/dL (30-55) 10/20/23 21:38 RDW 18.0 % (12.1-15.1) H 10/20/23 21:38 Plt Count 103 10^3/cmm (157-399) L 10/20/23 21:38 MPV 12.2 fL (7.4-10.4) H 10/20/23 21:38 Neut % (Auto) 82.5 % 10/20/23 21:38 Lymph % (Auto) 6.9 % 10/20/23 21:38 Ritchie % (Auto) 9.5 % 10/20/23 21:38 Eos % (Auto) 0.1 % 10/20/23 21:38 Baso % (Auto) 0.3 % 10/20/23 21:38 Neut # (Auto) 15.89 10^3/uL (1.8-7.7) H 10/20/23 21:38 Lymph # (Auto) 1.3 10^3/uL (0.8-4.8) 10/20/23 21:38 Ritchie # (Auto) 1.8 10^3/uL (0.2-0.9) H 10/20/23 21:38 Eos # (Auto) 0.0 10^3/uL (0.0-0.8) 10/20/23 21:38 Baso # (Auto) 0.1 10^3/uL (0.0-0.1) 10/20/23 21:38 Nucleated RBC % (auto) 0 % 10/20/23 21:38 Nucleated RBCs # 0.0 /100WBC 10/20/23 21:38 ESR 9 mm/hr (0-10) 10/20/23 21:38 Sodium 127 mmol/L (136-145) L 10/20/23 21:38 Potassium 3.7 mmol/L (3.5-5.1) 10/20/23 21:38 Chloride 89 mmol/L (98-107) L 10/20/23 21:38 Carbon Dioxide 23 mmol/L (22-29) 10/20/23 21:38 Anion Gap 18.7 (5-19) 10/20/23 21:38 BUN 23 mg/dL (6-20) H 10/20/23 21:38 Creatinine 1.7 mg/dL (0.7-1.2) H 10/20/23 21:38 GFR Calculation 43.1 mL/min (90-130) L 10/20/23 21:38 Glucose 104 mg/dL (65-115) 10/20/23 21:38 Calculated Osmolality 268 mOsm/kg (285-295) L 10/20/23 21:38 Lactic Acid 3.8 mmol/L (0.5-2.2) H 10/20/23 21:38 Lactic Acid (Sepsis) 3.1 mmol/L (0.5-2.2) H 10/20/23 01:59 Calcium 7.9 mg/dL (8.5-10.5) L 10/20/23 21:38 Total Bilirubin 6.4 mg/dL (0.15-1.2) H 10/20/23 21:38 AST 50 U/L (0-40) H 10/20/23 21:38 ALT 27 U/L (0-41) 10/20/23 21:38 Alkaline Phosphatase 141 U/L (40-130) H 10/20/23 21:38 Ammonia 84 umol/L (16-60) H 10/20/23 21:38 C-Reactive Protein 44.8 mg/L (0.0-4.9) H 10/20/23 21:38 Total Protein 5.9 g/dL (6.6-8.7) L 10/20/23 21:38 Albumin 2.8 g/dL (3.5-5.2) L 10/20/23 21:38 Globulin 3.1 g/dL (1.3-4.6) 10/20/23 21:38 Lipase 27 U/L (13-60) 10/20/23 21:38 Urine Color Gibson (Yellow) A 10/20/23 22:40 Urine Appearance Cloudy (CLEAR) A 10/20/23 22:40 Urine pH 5.0 (5-7) 10/20/23 22:40 Ur Specific Conway 1.020 (1.005-1.030) 10/20/23 22:40 Urine Protein Trace (Negative) A 10/20/23 22:40 Urine Glucose (UA) Negative (Normal) 10/20/23 22:40 Urine Ketones Negative (Negative) 10/20/23 22:40 Urine Blood Negative (Negative) 10/20/23 22:40 Urine Nitrate Positive (Negative) A 10/20/23 22:40 Urine Bilirubin 2+ (Negative) H 10/20/23 22:40 Urine Urobilinogen 1.0 mg/dL (Negative) 10/20/23 22:40 Ur Leukocyte Esterase 1+ (Negative) A 10/20/23 22:40 Urine RBC 5-10 /hpf (0-2) H 10/20/23 22:40 Urine WBC 5-10 /hpf (0-5) H 10/20/23 22:40 Ur Squamous Epith Cells 0-4 /hpf (0-5) H 10/20/23 22:40 Calcium Oxalate Crystal 0-4 /hpf H 10/20/23 22:40 Amorphous Sediment Not Reportable 10/20/23 22:40 Urine Bacteria 3+ /hpf (NONE) H 10/20/23 22:40 Hyaline Casts 15-25 /lpf H 10/20/23 22:40 Coarse Granular Casts 0-4 /lpf H 10/20/23 22:40 All radiology interpretation(s) finalized by discharge Discharge Plan Discharge Patient Disposition: Admitted As Inpatient Admit Provider: Jamir Mcginnis Clinical Impression: Septicemia Liver cirrhosis Qualifiers: Hepatic cirrhosis type: unspecified hepatic cirrhosis Ascites presence: with ascites Qualified Code(s): K74.60 - Unspecified cirrhosis of liver Condition: Stable Coding Level of Care Code ED Well Testing Operator for Chg Fwd Documented by User: Danilo Mason DO 10/27/23 18:55 HPI - Abdominal Pain 2 General: Chief Complaint: Abdominal Pain Stated Complaint: abd pain Time Seen by Provider: 10/20/23 21:02 Related Data Home Medications Medication Instructions Recorded Confirmed allopurinol 300 mg tablet 300 mg PO DAILY 06/29/23 10/24/23 nadolol 20 mg tablet 20 mg PO DAILY 06/29/23 10/24/23 pantoprazole 40 mg tablet,delayed 40 mg PO DAILY 06/29/23 10/24/23 release spironolactone 25 mg tablet 50 mg PO DAILY 06/29/23 10/21/23 furosemide 40 mg tablet 40 mg PO DAILY 10/21/23 10/24/23 Previous Rx's Medication Instructions Recorded ondansetron HCl 4 mg tablet 4 mg PO Q8H #30 tabs 06/29/23 Allergies Allergy/AdvReac Type Severity Reaction Status Date / Time No Known Allergies Allergy Verified 10/20/23 20:55 PFSH ED 2 PFSH: Medical History (Updated 10/21/23 @ 16:08 by Fortino Wagoner MD) Acute hepatic failure Abdominal ascites Smoker Colitis Low oxygen saturation Enteropathy Smoking addiction Alcohol use disorder Thrombocytopenia Liver cirrhosis Hematuria Ascites due to alcoholic cirrhosis Abdominal pain 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 History of colon polyps Rectal polyp 10 and 15 cm, cecum biopsy Sigmoid colon polyp Seasonal allergies Splenomegaly Enterocolitis 2016 Surgical History Status post colonoscopy with polypectomy H/O esophagogastroduodenoscopy Vasectomy status H/O left inguinal hernia repair Family History Denies family history of Cancer Social History Smoking and tobacco/nicotine status: current every day tobacco/nicotine user cigarettes [ Other cigarette details: At least 92-gorg-wuai history, currently cutting down to several cigarettes] Alcohol intake: current Substance/Drug Use: never Lives independently: Yes Housing: House Marital status: Course 2 Vital Signs: Vital signs: Vital Signs Temperature 98.2 F 10/27/23 15:36 Pulse Rate 77 10/27/23 15:36 Respiratory Rate 16 10/27/23 15:36 Blood Pressure 101/64 10/27/23 15:36 Pulse Oximetry 97 10/27/23 15:36 Oxygen Delivery Me thod Room Air 10/27/23 15:36 Oxygen Flow Rate 2 10/22/23 12:30 MDM - Abdominal Pain Medical Decision Making This patient was originally seen by Mr. José Luis PA-C.? I agree with his history, evaluation, and treatment. Lab Data 10/26/23 04:55 10/27/23 06:31 Labs/Radiology: Radiology Impressions Abdomen/Pelvis CT 10/20/23 21:08 IMPRESSION: 1. Hepatic cirrhosis with evidence of portal hypertension including ascites, mesenteric edema, splenomegaly, portosystemic collaterals, nonspecific gallbladder wall thickening. Areas of decreased attenuation in the hepatic parenchyma are nonspecific and masses are not excluded on single phase imaging. 2. Diffuse gastric wall thickening, areas of small bowel wall thickening, and colonic wall thickening all likely related to portal hypertension, worsened compared to prior. Chest X-Ray 10/20/23 23:36 IMPRESSION: New right internal jugular venous catheter terminating deep in the right atrium. Liver Ultrasound 10/21/23 08:31 IMPRESSION: Marked ascites with hepatic cirrhosis. Inhomogeneous liver without discrete mass. MRI recommended for further assessment of abnormality seen on prior CT given higher sensitivity and specificity for pathology in the setting of cirrhosis. Laboratory Results WBC 19.26 10^3/uL (3.29-11.43) H 10/20/23 21:38 RBC 3.18 10^6/uL (3.85-5.65) L 10/20/23 21:38 Hgb 11.70 g/dL (11.27-16.99) 10/20/23 21:38 Hct 32.5 % (37-53) L 10/20/23 21:38 MCV 102.2 fl (82-101) H 10/20/23 21:38 MCH 36.8 pg (27-33) H 10/20/23 21:38 MCHC 36.0 g/dL (30-55) 10/20/23 21:38 RDW 18.0 % (12.1-15.1) H 10/20/23 21:38 Plt Count 103 10^3/cmm (157-399) L 10/20/23 21:38 MPV 12.2 fL (7.4-10.4) H 10/20/23 21:38 Neut % (Auto) 82.5 % 10/20/23 21:38 Lymph % (Auto) 6.9 % 10/20/23 21:38 Ritchie % (Auto) 9.5 % 10/20/23 21:38 Eos % (Auto) 0.1 % 10/20/23 21:38 Baso % (Auto) 0.3 % 10/20/23 21:38 Neut # (Auto) 15.89 10^3/uL (1.8-7.7) H 10/20/23 21:38 Lymph # (Auto) 1.3 10^3/uL (0.8-4.8) 10/20/23 21:38 Ritchie # (Auto) 1.8 10^3/uL (0.2-0.9) H 10/20/23 21:38 Eos # (Auto) 0.0 10^3/uL (0.0-0.8) 10/20/23 21:38 Baso # (Auto) 0.1 10^3/uL (0.0-0.1) 10/20/23 21:38 Nucleated RBC % (auto) 0 % 10/20/23 21:38 Nucleated RBCs # 0.0 /100WBC 10/20/23 21:38 ESR 9 mm/hr (0-10) 10/20/23 21:38 Sodium 127 mmol/L (136-145) L 10/20/23 21:38 Potassium 3.7 mmol/L (3.5-5.1) 10/20/23 21:38 Chloride 89 mmol/L (98-107) L 10/20/23 21:38 Carbon Dioxide 23 mmol/L (22-29) 10/20/23 21:38 Anion Gap 18.7 (5-19) 10/20/23 21:38 BUN 23 mg/dL (6-20) H 10/20/23 21:38 Creatinine 1.7 mg/dL (0.7-1.2) H 10/20/23 21:38 GFR Calculation 43.1 mL/min (90-130) L 10/20/23 21:38 Glucose 104 mg/dL (65-115) 10/20/23 21:38 Calculated Osmolality 268 mOsm/kg (285-295) L 10/20/23 21:38 Lactic Acid 3.8 mmol/L (0.5-2.2) H 10/20/23 21:38 Lactic Acid (Sepsis) 3.1 mmol/L (0.5-2.2) H 10/20/23 01:59 Calcium 7.9 mg/dL (8.5-10.5) L 10/20/23 21:38 Total Bilirubin 6.4 mg/dL (0.15-1.2) H 10/20/23 21:38 AST 50 U/L (0-40) H 10/20/23 21:38 ALT 27 U/L (0-41) 10/20/23 21:38 Alkaline Phosphatase 141 U/L (40-130) H 10/20/23 21:38 Ammonia 84 umol/L (16-60) H 10/20/23 21:38 C-Reactive Protein 44.8 mg/L (0.0-4.9) H 10/20/23 21:38 Total Protein 5.9 g/dL (6.6-8.7) L 10/20/23 21:38 Albumin 2.8 g/dL (3.5-5.2) L 10/20/23 21:38 Globulin 3.1 g/dL (1.3-4.6) 10/20/23 21:38 Lipase 27 U/L (13-60) 10/20/23 21:38 Urine Color Gibson (Yellow) A 10/20/23 22:40 Urine Appearance Cloudy (CLEAR) A 10/20/23 22:40 Urine pH 5.0 (5-7) 10/20/23 22:40 Ur Specific Conway 1.020 (1.005-1.030) 10/20/23 22:40 Urine Protein Trace (Negative) A 10/20/23 22:40 Urine Glucose (UA) Negative (Normal) 10/20/23 22:40 Urine Ketones Negative (Negative) 10/20/23 22:40 Urine Blood Negative (Negative) 10/20/23 22:40 Urine Nitrate Positive (Negative) A 10/20/23 22:40 Urine Bilirubin 2+ (Negative) H 10/20/23 22:40 Urine Urobilinogen 1.0 mg/dL (Negative) 10/20/23 22:40 Ur Leukocyte Esterase 1+ (Negative) A 10/20/23 22:40 Urine RBC 5-10 /hpf (0-2) H 10/20/23 22:40 Urine WBC 5-10 /hpf (0-5) H 10/20/23 22:40 Ur Squamous Epith Cells 0-4 /hpf (0-5) H 10/20/23 22:40 Calcium Oxalate Crystal 0-4 /hpf H 10/20/23 22:40 Amorphous Sediment Not Reportable 10/20/23 22:40 Urine Bacteria 3+ /hpf (NONE) H 10/20/23 22:40 Hyaline Casts 15-25 /lpf H 10/20/23 22:40 Coarse Granular Casts 0-4 /lpf H 10/20/23 22:40 Discharge Plan Discharge Patient Disposition: Admitted As Inpatient Admit Provider: Jamir Mcginnis Clinical Impression: Septicemia Liver cirrhosis Qualifiers: Hepatic cirrhosis type: unspecified hepatic cirrhosis Ascites presence: with ascites Qualified Code(s): K74.60 - Unspecified cirrhosis of liver Condition: Stable Coding Level of Care Code ED Well Testing Operator for Jess López
[2023-10-20 22:05] LABS: Erythrocyte Sedimentation Rate 9 mm/hr (0-10)
[2023-10-20 22:08] LABS: Basophils # 0.1 10^3/uL (0.0-0.1); Basophils % 0.3 %; Eosinophils % 0.1 %; Hematocrit 32.5 % (37-53); Lymphocytes # 1.3 10^3/uL (0.8-4.8); Lymphocytes % 6.9 %; Mean Corpuscular Hemoglobin 36.8 pg (27-33); Mean Corpuscular Volume 102.2 fl (82-101); Mean Platelet Volume 12.2 fL (7.4-10.4); Monocytes # 1.8 10^3/uL (0.2-0.9); Monocytes % 9.5 %; Neutrophils # 15.89 10^3/uL (1.8-7.7); Neutrophils % 82.5 %; Nucleated Red Blood Cells % 0 %; Platelet Count 103 10^3/cmm (157-399); Red Blood Count 3.18 10^6/uL (3.85-5.65); White Blood Count 19.26 10^3/uL (3.29-11.43)
[2023-10-20] MEDS: ondansetron 2 mg/ML SDV 2 mL 4 MG IVP ×2 (22:13→23:46)
[2023-10-20] MEDS: sodium chloride 0.9% 1,000 ML 999 ML IV ×2 (22:14→23:00)
[2023-10-20 22:28] LABS: Alanine Aminotransferase 27 U/L (0-41); Albumin Level 2.8 g/dL (3.5-5.2); Alkaline Phosphatase 141 U/L (40-130); Anion Gap 18.7 (5-19); Aspartate Amino Transferase 50 U/L (0-40); Blood Urea Nitrogen 23 mg/dL (6-20); C Reactive Protein 44.8 mg/L (0.0-4.9); Calcium 7.9 mg/dL (8.5-10.5); Carbon Dioxide 23 mmol/L (22-29); Chloride 89 mmol/L (98-107); Creatinine Clr Calc Pharmacy 53.7941; Globulin 3.1 g/dL (1.3-4.6); Glomerular Filtration Rate 43.1 mL/min (90-130); Glucose 104 mg/dL (65-115); Lipase 27 U/L (13-60); Osmolality Calculated 268 mOsm/kg (285-295); Potassium 3.7 mmol/L (3.5-5.1); Sodium 127 mmol/L (136-145); Total Bilirubin 6.4 mg/dL (0.15-1.2); Total Protein 5.9 g/dL (6.6-8.7)
[2023-10-20 22:29] LABS: Lactic Sepsis W/Reflex 3.8 mmol/L (0.5-2.2)
[2023-10-20 22:32] LABS: Ammonia 84 umol/L (16-60)
[2023-10-20] MEDS: piperacillin-tazobactam 3.375 GM in sodium chloride 0.9% (plus) 50 ML IV (23:00)
[2023-10-20] MEDS: vancomycin 1,000 MG in sodium chloride 0.9% 250 ML 250 MG IV (23:11)
[2023-10-20 23:18] LABS: Charge for UA Resulting for Rev
[2023-10-20] MEDS: iohexol 350 mg/mL 500 mL Btl (per mL) IV (23:18)
[2023-10-20 23:21] LABS: Bilirubin Urine 2+ (Negative); Blood Urine Negative (Negative); Glucose Urine UA Negative (Normal); Ketones Urine Negative (Negative); Leukocyte Esterase Urine 1+ (Negative); Nitrate Urine Positive (Negative); Protein Urine Trace (Negative); Urine Appearance Cloudy (CLEAR); Urine Color Orange (Yellow)
--- NOTE | 2023-10-20 23:36 | XRR_ITS ---
PROCEDURE INFORMATION: Exam: XR Chest Exam date and time: 10/20/2023 11:46 PM Age: 48 years old Clinical indication: Other vascular access device placement or adjustment; Central line, non-tunnelled; Patient HX: Check S/P central line placement TECHNIQUE: Imaging protocol: Radiologic exam of the chest. Views: 1 view. COMPARISON: CR XR chest 1V portable [id number] 05/22/2021 9:33 AM FINDINGS: Tubes, catheters and devices: New right internal jugular venous catheter terminating deep in the right atrium. Lungs: Mild left basilar atelectasis, stable. No consolidation. Pleural spaces: No pleural effusion or pneumothorax. Heart/Mediastinum: Heart size is within normal limits. Bones/joints: No acute osseous abnormalities are seen. XR/XR chest 1V portable [id number] IMPRESSION: New right internal jugular venous catheter terminating deep in the right atrium.
[2023-10-20 23:40] LABS: UA Slide Review UA Slide Review Perf
[2023-10-20 23:41] LABS: Bacteria Urine 3+ /hpf; Coarse Granular Casts Urine 0-4 /lpf; Hyaline Casts Urine 15-25 /lpf; Squamous Epithelial Cell Urine 0-4 /hpf (0-5); UA Manual Slide Review YES
[2023-10-20 23:42] LABS: Add Urine Culture? Yes; Calcium Oxalate Crystals Urine 0-4 /hpf
[2023-10-20 23:49] LABS: Reflex Lactate Order REFLEX LACTIC ORDERD
--- NOTE | 2023-10-20 23:54 | P.HP_ITS ---
Providers/Chief Complaint 2 Chief Complaint: abd pain History of Present Illness Chase Rivero is a 48 year old male with a past medical history significant for decompensated liver cirrhosis with ascites and esophageal varices, alcohol use disorder with abuse, splenomegaly, tobacco use disorder, and multiple other comorbidities who presents to the emergency department with abdominal pain. Patient reports symptoms began around Sunday. Endorses associated abdominal distention. Reports exertion worsens symptoms. Rest improves symptoms. Endorses associated nausea, dry heaving, and fevers. Of note, patient states that he had similar symptoms nearly a week ago. He was evaluated at [place] emergency room. He underwent a paracentesis last with 4.5 L removed. Patient reports this is his second paracentesis since being diagnosed with liver cirrhosis. [place] [facility] [place] He states he follows with a liver specialist in [place]. Reports his recent MELD score was 15. He has a history of alcohol use disorder which is the culprit of his liver cirrhosis. He has been alcohol free for the last 3 years. He notes he continues to smoke tobacco via cigarettes. He is down to 1 to 2 cigarettes/day. He plans on quitting soon. Spouse is bedside and supportive. She has multiple questions that we go over. We discussed his plan of care. Review of Systems 2 Narrative: A complete review of systems was obtained and is negative except as stated in HPI. Medications/Allergies Home Medications Medication Instructions Recorded Confirmed Last Taken Type allopurinol 300 mg tablet 300 mg PO DAILY 06/29/23 06/29/23 06/28/23 History hydrocodone 5 mg-acetaminophen 325 1 tab PO Q6H PRN Pain 06/29/23 06/29/23 Unknown History mg tablet nadolol 20 mg tablet 20 mg PO DAILY 06/29/23 06/29/23 06/29/23 History ondansetron HCl 4 mg tablet 4 mg PO Q8H #30 tabs 06/29/23 Unknown Rx pantoprazole 40 mg tablet,delayed 40 mg PO DAILY 06/29/23 06/29/23 06/29/23 History release spironolactone 25 mg tablet 25 mg PO DAILY 06/29/23 06/29/23 06/28/23 History Allergies Allergy/AdvReac Type Severity Reaction Status Date / Time No Known Allergies Allergy Verified 10/20/23 20:55 PFSH Acute 2 PFSH: Medical History (Updated 10/21/23 @ 00:37 by SHAKIRA Little) Abdominal ascites Acute hepatic failure Smoker Colitis Low oxygen saturation Enteropathy Smoking addiction Alcohol use disorder Thrombocytopenia Liver cirrhosis Hematuria Ascites due to alcoholic cirrhosis Abdominal pain 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 History of colon polyps Rectal polyp 10 and 15 cm, cecum biopsy Sigmoid colon polyp Seasonal allergies Splenomegaly Enterocolitis 2017 Surgical History Status post colonoscopy with polypectomy H/O esophagogastroduodenoscopy Vasectomy status H/O left inguinal hernia repair Family History Denies family history of Cancer Social History Smoking and tobacco/nicotine status: current every day tobacco/nicotine user cigarettes [ Other cigarette details: At least 32-mery-cecv history, currently cutting down to several cigarettes] Alcohol intake: current Substance/Drug Use: never Lives independently: Yes Housing: House Marital status: Vitals/I&O/Wt Last Vital Signs Temp 98.8 F 10/20/23 20:49 Pulse 78 10/20/23 23:51 Resp 17 10/20/23 23:51 BP 89/50 10/20/23 23:51 Pulse Ox 96 10/20/23 23:51 O2 Del Method Room Air 10/20/23 20:49 Weight last 48 hrs Weight 78.29 kg Physical Exam 2 Narrative: General: Patient is awake. Head: Normocephalic. Atraumatic. EOM intact. Scleral icterus. Neck: No JVD. Cardiovascular: RRR. No gallops. No murmurs. Lungs: Clear to auscultation, no use of accessory muscles, no crackles or wheezes. Skin: Diffuse jaundice. No rashes. Abdomen: Abdomen is moderately distended. Tender to palpation in all 4 quadrants. No guarding. No rebound. Bowel sounds are present.. Genito Urinary: Genital exam not performed since complaints not related. Rectal: Rectal exam not performed since no symptoms indicated blood loss. Extremities: No cyanosis or clubbing. Musculoskeletal: No swollen or erythematous joints. Neurological: Moves all 4 extremities. No myoclonus. Data 10/20/23 21:38 10/20/23 21:38 Micro: Microbiology 10/20/23 21:30 Blood Culture - Preliminary Blood SPECIMEN COLLECTED 10/20/23 21:38 Blood Culture - Preliminary Blood SPECIMEN COLLECTED A&P Assessment and plan (1) Leukocytosis: Leukocytosis Patient likely has severe sepsis w/ possible septic shock despite not meeting SIRS criteria SIRS: Leukocytosis Tachycardia likely blunted from beta-dimas usage Source suspected to be SBP versus UTI Status post 2L IVF bolus in ED Central line is being placed by ED provider Plan to start vasopressor support for shock with MAP goal of 65 mmHg Diagnostic paracentesis is pending End organ damage also noted through LAQUITA, lactic acidosis, shock Start cefepime Start vancomycin MRSA swab Pro-Pieter Panculture (2) UTI (urinary tract infection): Acute complicated urinary tract infection Urinalysis reviewed Follow urine culture Start cefepime (3) Liver cirrhosis: Decompensated liver cirrhosis with ascites and history of esophageal varices Hyperammonia noted Patient reports recent therapeutic paracentesis w/ removal of 4.5 L on Sunday Paracentesis as above Hold diuretics (4) Acute kidney injury: Admission creatinine 1.7, previously 0.8 Hold diuretics Status post more than 2 L IV fluid in ED Suspect possible hepatorenal; will consider albumin infusion pending renal response to fluids Renally dose medications Strict I's and O's Daily weights Repeat labs in a.m. (5) Hyponatremia: Hyponatremia secondary to sequela of liver cirrhosis Status post NS x 2 L in ED Monitor electrolytes (6) Thrombocytopenia: Thrombocytopenia secondary to underlying liver cirrhosis Monitor for signs and symptoms of bleeding (7) Hyperbilirubinemia: Hyperbilirubinemia secondary to underlying liver dysfunction from decompensated cirrhosis Avoid hepatotoxins Trend CMP (8) Transaminitis: Elevated liver enzymes with AST greater than ALT Avoid hepatotoxins Trend CMP (9) Tobacco use disorder: Patient would benefit from smoking cessation Plan DVT ppx: SCD Attestations 2 Medical Necessity Statement*: Patient presents with abdominal pain, found to have suspected septic shock with expected hospitalization to cross 2 midnights for vasopressors, broad-spectrum antibiotics, telemetry, cultures, and supportive care. Coding Level of Care Code Acute Code for Chg Fwd Diagnoses Leukocytosis D72.829 UTI (urinary tract infection) N39.0 Liver cirrhosis K74.60 Acute kidney injury N17.9 Hyponatremia E87.1 Thrombocytopenia D69.6 Hyperbilirubinemia E80.6 Transaminitis R74.01 Tobacco use disorder F17.200
[2023-10-21] VITALS (70 sets, daily range): BP systolic 82–114; BP diastolic 45–77; PULSE 54–89; RESP 13–25; TEMP 36.6–37.3; O2SAT 90–97
[2023-10-21] MEDS: norepinephrine 4 MG/250 ML BAG 18.75 MG IV (00:03)
[2023-10-21 01:42] LABS: Apprearance, Body Fluid CLOUDY; Color, Body Fluid YELLOW; PATH Referral YES
[2023-10-21 01:45] LABS: Body Fluid Polynuclear #Cells 3.484; Body Fluid WBC 4147 /uL; Monocytes # Body Fluid 0.663
[2023-10-21 01:49] LABS: Cyto Order Verification Order Verified
[2023-10-21 01:50] LABS: Fluid Laterality Right Lower
[2023-10-21 02:02] LABS: Albumin Body Fluid 0.5 g/dL; Total Protein Body Fluid 0.7 g/dL
[2023-10-21] MEDS: lactulose oral liq 20 gm/30 mL UDC 10 GM PO (02:05)
[2023-10-21] MEDS: cefepime 2,000 MG in sodium chloride 0.9% (plus) 50 ML 100 MG IV ×2 (02:06→14:18)
[2023-10-21 02:29] LABS: Lactic Acid level (Lactate) 3.1 mmol/L (0.5-2.2)
[2023-10-21] MEDS: HYDROmorphone 1 mg/mL INJ 1 mL 0.2 MG IVP ×4 (02:45→23:14)
[2023-10-21 04:20] LABS: Basophils # 0.1 10^3/uL (0.0-0.1); Basophils % 0.3 %; Eosinophils # 0.1 10^3/uL (0.0-0.8); Eosinophils % 0.6 %; Hematocrit 30.9 % (37-53); Lymphocytes # 1.1 10^3/uL (0.8-4.8); Lymphocytes % 6.9 %; Mean Corpuscular HGB Conc 35.6 g/dL (30-55); Mean Corpuscular Hemoglobin 36.3 pg (27-33); Mean Platelet Volume 11.9 fL (7.4-10.4); Monocytes # 1.5 10^3/uL (0.2-0.9); Monocytes % 9.2 %; Neutrophils # 13.56 10^3/uL (1.8-7.7); Neutrophils % 82.5 %; Nucleated Red Blood Cells % 0 %; Platelet Count 116 10^3/cmm (157-399); Red Blood Count 3.03 10^6/uL (3.85-5.65); Red Cell Distribution Width 17.5 % (12.1-15.1); White Blood Count 16.43 10^3/uL (3.29-11.43)
[2023-10-21 04:39] LABS: Alanine Aminotransferase 26 U/L (0-41); Albumin Level 2.6 g/dL (3.5-5.2); Alkaline Phosphatase 148 U/L (40-130); Anion Gap 14.7 (5-19); Aspartate Amino Transferase 42 U/L (0-40); Blood Urea Nitrogen 22 mg/dL (6-20); Calcium 7.3 mg/dL (8.5-10.5); Carbon Dioxide 23 mmol/L (22-29); Chloride 97 mmol/L (98-107); Creatinine Clr Calc Pharmacy 61.4863; Globulin 3.1 g/dL (1.3-4.6); Glomerular Filtration Rate 49.7 mL/min (90-130); Glucose 157 mg/dL (65-115); Magnesium 1.7 mg/dL (1.7-2.3); Osmolality Calculated 279 mOsm/kg (285-295); Phosphorus 2.9 mg/dL (2.5-4.5); Potassium 3.7 mmol/L (3.5-5.1); Sodium 131 mmol/L (136-145); Total Bilirubin 6.9 mg/dL (0.15-1.2); Total Protein 5.7 g/dL (6.6-8.7)
[2023-10-21 04:50] LABS: Procalcitonin 10.41 ng/mL (0-0.5)
[2023-10-21] MEDS: norepinephrine 4 MG/250 ML BAG 28.13 MG IV (08:25)
--- NOTE | 2023-10-21 08:31 | USR_ITS ---
PROCEDURE INFORMATION: Exam: US Abdomen, Limited; Right Upper Quadrant Exam date and time: 10/21/2023 12:08 PM Age: 48 years old Clinical indication: Abnormal findings; Abnormal radiologic finding of the abdomen; Radiologic exam and body structure: CT liver; Additional info: Ruq TECHNIQUE: Imaging protocol: Real time ultrasound of the abdomen with image documentation. Limited exam focused on the right upper quadrant. COMPARISON: 1. [place] paracentesis abd w [id number] 05/23/2021 11:[address] abdomen pelvis w con* [id number] 10/20/2023 11:15 PM FINDINGS: Liver: Features of hepatic cirrhosis again noted. Inhomogeneous liver with no discrete mass visualized. Gallbladder: Gallbladder sludge. Gallbladder wall is thickened to 8 mm, nonspecific given presence of the ascites and liver disease. Biliary ducts: Common bile duct cannot be visualized precluding measurement. Pancreas: Visualized pancreas is unremarkable. Right kidney: Right kidney measures 11.9 cm in length. No calculus, mass, or obstruction. Renal echogenicity is within normal limits. Intraperitoneal space: Large amount of ascites is again seen. US/US liver [id number] IMPRESSION: Marked ascites with hepatic cirrhosis. Inhomogeneous liver without discrete mass. MRI recommended for further assessment of abnormality seen on prior CT given higher sensitivity and specificity for pathology in the setting of cirrhosis.
--- NOTE | 2023-10-21 08:34 | USCV_ITS ---
Chase Rivero Age: 48 Gender: M : 1975 Exam Date: 10/21/2023 13:46 Ordering Phys: Fortino Wagoner MD Technologist: Andre Grey [place] [facility] [place]: shock BP: 89 / 65 HR: 61 Rhythm: Sinus Technical Quality: Adequate MEASUREMENTS (Male / Female) Normal Values 2D ECHO LV Diastolic Diameter PLAX 4.3 cm 4.2 - 5.9 / 3.9 - 5.3 cm IVS Diastolic Thickness 0.7 cm 0.6 - 1.0 / 0.6 - 0.9 cm IVS Systolic Thickness 0.9 cm LVPW Diastolic Thickness 1.3 cm 0.6 - 1.0 / 0.6 - 0.9 cm LVPW Systolic Thickness 1.6 cm LVOT Diameter 2.0 cm LV Ejection Fraction 2D Teich 64.7 % LV Ejection Fraction MOD 4C 69.0 % LV Ejection Fraction MOD 2C 61.6 % LV Ejection Fraction 2C AL 61.9 % LA Diameter 3.1 cm Aorta at Sinotubular Diameter 2.0 cm M-MODE LA Ao Ratio MM 1.2 AV Cusp Separation MM 1.9 cm DOPPLER AV Peak Velocity 124.0 cm/s LVOT Peak Velocity 98.0 cm/s AV Area Cont Eq vti 2.5 cm squared AV Area Cont Eq pk 2.5 cm squared MV Peak Velocity 91.0 cm/s MV Area PHT 4.1 cm squared Mitral E to A Ratio 1.6 TR Peak Velocity 255.0 cm/s TR Peak Gradient 26.0 mmHg TR Mean Velocity 204.0 cm/s TR Mean Gradient 17.4 mmHg TR Velocity Time Integral 63.3 cm PV Peak Velocity 187.3 cm/s RV Ejection Time 0.3 s FINDINGS Left Ventricle Left ventricle is normal size. LV systolic function is normal with EF 60-65%. No regional wall motion abnormalities are seen. Right Ventricle Normal in size and function Right Atrium Normal in size Left Atrium Normal in size Mitral Valve Structurally normal mitral valve. Trace mitral regurgitation. Aortic Valve Structurally normal aortic valve. No significant stenosis or regurgitation. Tricuspid Valve Mild tricuspid regurgitation. Pulmonary artery systolic pressure is normal. Pulmonic Valve Not well visualized Pericardium Normal Aorta Normal in size IVC Not visualized CONCLUSIONS LV systolic function is normal with EF of 60-65% Trace mitral regurgitation Mild tricuspid regurgitation No comparison studies are available. Kendrick Gordon MD (Electronically Signed) Final Date: 21 October 2023 14:36 S
--- NOTE | 2023-10-21 08:35 | ECG_ITS ---
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 Measurements Intervals [place] Rate: 62 P: 35 AR: 166 QRS: -17 QRSD: 94 T: -1 QT: 421 QTc: 429 Interpretive Statements SINUS RHYTHM Compared to ECG 05/19/2019 10:55:44 Sinus tachycardia no longer present Electronically Signed On 10-21-2023 14:28:33 CDT by Kendrick Gordon M.D. [id number]
[2023-10-21 09:13] LABS: Troponin(5th) Baseline 10 ng/L (0-15)
[2023-10-21 09:26] LABS: Alcohol Level < 10 mg/dL (0-10)
[2023-10-21 09:29] LABS: Vitamin B12 1787 pg/mL (232-1245)
[2023-10-21 09:31] LABS: Folate Level 6.1 ng/mL (4.5-32.2)
[2023-10-21] MEDS: rifaximin 200 mg Tablet 600 MG PO ×2 (09:33→18:00)
[2023-10-21] MEDS: albumin 25 G/100 ML BAG 60 G IV ×2 (09:34→16:33)
--- NOTE | 2023-10-21 10:35 | ECG_ITS ---
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 Measurements Intervals [place] Rate: 62 P: 30 [place]: 167 QRS: -11 QRSD: 102 T: 11 QT: 432 QTc: 440 Interpretive Statements SINUS RHYTHM Compared to ECG 10/21/2023 09:07:13 No significant changes Electronically Signed On 10-21-2023 14:28:53 CDT by Kendrick Gordon M.D. [id number]
[2023-10-21] MEDS: sodium chloride 0.9% 1,000 ML 75 ML IV ×2 (10:42→22:52)
--- NOTE | 2023-10-21 10:46 | P.CONIM_ITS ---
Providers/Reason For Consult 2 Consulting Physician/Specialty*: kommana/Nphrology Reason for Consult*: LAQUITA Attending Physician: Fortino Wagoner MD History of Present Illness History of Present Illness Chase Rivero is a 48 year old male patient is a 48-year-old male with past medical history of liver cirrhosis andt ascites and esophageal varices from alcohol abuse, multiple other comorbid comorbidities was brought to the emergency department due to abdominal pain and abdominal distention. Patient reports decreased p.o. intake decreased appetite. He recently underwent paracentesis about 4.5 L removed. In the emergency department his vital signs are stable except low blood pressure in the 80s systolic, lab data was significant for elevated WBC count of 19,000, sodium was 127 creatinine was 1.7. Also noted to have urinary tract infection. Patient is admitted for further management Review of Systems 2 Narrative: Other review of systems negative Medications/Allergies Home Medications Medication Instructions Recorded Confirmed Last Taken Type allopurinol 300 mg tablet 300 mg PO DAILY 06/29/23 06/29/23 06/28/23 History hydrocodone 5 mg-acetaminophen 325 1 tab PO Q6H PRN Pain 06/29/23 06/29/23 Unknown History mg tablet nadolol 20 mg tablet 20 mg PO DAILY 06/29/23 06/29/23 06/29/23 History ondansetron HCl 4 mg tablet 4 mg PO Q8H #30 tabs 06/29/23 Unknown Rx pantoprazole 40 mg tablet,delayed 40 mg PO DAILY 06/29/23 06/29/23 06/29/23 History release spironolactone 25 mg tablet 50 mg PO DAILY 06/29/23 10/21/23 06/28/23 History furosemide 40 mg tablet mg 10/21/23 Unknown History Allergies Allergy/AdvReac Type Severity Reaction Status Date / Time No Known Allergies Allergy Verified 10/20/23 20:55 Current Medications Generic Name Dose Route Start Last Admin Trade Name Freq PRN Reason Stop Dose Admin Hydromorphone HCl 0.2 mg 10/21/23 01:47 10/21/23 08:23 Hydromorphone 1 Mg/Ml Inj 1 Ml IVP 0.2 mg Q2H PRN Administration MODERATE-SEVERE PAIN Norepinephrine Bitartrate 4 mg in 250 mls @ 0 mls/hr 10/20/23 23:15 10/21/23 08:25 Levophed IV 7.5 mcg/min .Q0M CHRIS 28.13 mls/hr Administration Protocol Per Protocol Cefepime HCl 2,000 mg/ Sodium 50 mls @ 100 mls/hr 10/21/23 02:00 10/21/23 02:38 Chloride IV Infused Q12H CHRIS Infusion Albumin Human 25 g in 100 mls @ 60 mls/hr 10/21/23 09:00 10/21/23 09:34 Albumin IV 60 mls/hr Q8H CHRIS Administration Rifaximin 600 mg 10/21/23 09:00 10/21/23 09:33 Rifaximin 200 Mg Tablet PO 600 mg BID CHRIS Administration PFSH Acute 2 PFSH: Medical History (Updated 10/21/23 @ 00:37 by SHAKIRA Little) Abdominal ascites Acute hepatic failure Smoker Colitis Low oxygen saturation Enteropathy Smoking addiction Alcohol use disorder Thrombocytopenia Liver cirrhosis Hematuria Ascites due to alcoholic cirrhosis Abdominal pain 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 History of colon polyps Rectal polyp 10 and 15 cm, cecum biopsy Sigmoid colon polyp Seasonal allergies Splenomegaly Enterocolitis 2016 Surgical History Status post colonoscopy with polypectomy H/O esophagogastroduodenoscopy Vasectomy status H/O left inguinal hernia repair Family History Denies family history of Cancer Social History Smoking and tobacco/nicotine status: current every day tobacco/nicotine user cigarettes [ Other cigarette details: At least 05-cbxr-gjpy history, currently cutting down to several cigarettes] Alcohol intake: current Substance/Drug Use: never Lives independently: Yes Housing: House Marital status: Vitals/I&O/Wt Last Vital Signs Temp 98.5 F 10/21/23 08:30 Pulse 66 10/21/23 08:30 Resp 19 H 10/21/23 08:30 BP 86/58 10/21/23 08:30 Pulse Ox 91 10/21/23 08:30 O2 Del Method Nasal Cannula 10/21/23 08:30 O2 Flow Rate 2 10/21/23 08:30 10/20/23 10/21/23 10/21/23 22:59 06:59 14:59 Intake Total 2360.313 / 2360.313 419.883 / 419.883 Output Total 300 / 300 Balance 2060.313 / 2060.313 419.883 / 419.883 Weight last 48 hrs Weight 79.832 kg Weight 79.832 kg Weight 78.29 kg Physical Exam 2 Narrative: Patient is awake alert, no distress On 2 L O2 by nasal cannula HEENT S1-S2 rate and rhythm Lungs clear per report Abdomen soft and distended No pedal edema Data 10/21/23 03:59 10/21/23 03:59 Micro: Microbiology 10/21/23 01:00 Gram Stain - Final Peritoneal Fluid 10/20/23 21:30 Blood Culture - Preliminary Blood SPECIMEN COLLECTED 10/20/23 21:38 Blood Culture - Preliminary Blood SPECIMEN COLLECTED A&P Assessment and plan (1) Acute kidney injury: 1. Acute kidney injury: Baseline creatinine was 0.9, patient's creatinine was 1.7 on presentation and currently at 1.5. Patient oliguric. Etiology likely prerenal and post paracentesis renal dysfunction in the setting of decompensated liver cirrhosis and recent paracentesis. -Blood pressure borderline low and he is on pressors currently, -will add midodrine and IV albumin, no acute indication for dialysis currently, also patient would not be a good dialysis candidate for hD and would recommend conservative management if renal function gets worse. -Holding Lasix for now, avoid nephrotoxins and IV contrast studies 2. Hyponatremia: Likely in the setting of liver cirrhosis, monitor 3. Decompensated liver cirrhosis 4. Sepsis in the setting of UTI, management per primary team Consult Attestations 2 Medical Necessity Statement: Per medicine team Coding Level [facility] Care Code [facility] Acute kidney injury N17.9
[2023-10-21 11:26] LABS: Troponin 5 2HR 9.51 ng/L (0-15)
[2023-10-21 11:32] LABS: Troponin 5 2HR Delta -0.49 ABS# (0-10)
[2023-10-21] MEDS: vancomycin 1,250 MG/250 ML PIGGYBACK 166.67 MG IV (11:53)
[2023-10-21] MEDS: pantoprazole 40 mg SDV IVP ×2 (11:54→22:52)
[2023-10-21 13:13] LABS: Amphetamines Screen Urine Negative (Negative); Barbiturates Screen Urine Negative (Negative); Benzodiazepines Screen Urine Negative (Negative); Cocaine Screen Urine Negative (Negative); Opiate Screen Urine Positive (Negative); PCP Screen Urine Negative (Negative); THC Screen Urine Negative (Negative)
--- NOTE | 2023-10-21 13:21 | PHA.VACGOAL ---
Vancomycin Goal - Therapy Day of therpy:: Day []of [] . Actual body weight (kg): 176 lb - Data Labs: WBC 16.43 10^3/uL (3.29-11.43) H 10/21/23 03:59 RBC 3.03 10^6/uL (3.85-5.65) L 10/21/23 03:59 Hgb 11.00 g/dL (11.27-16.99) L 10/21/23 03:59 Hct 30.9 % (37-53) L 10/21/23 03:59 MCV 102.0 fl (82-101) H 10/21/23 03:59 MCH 36.3 pg (27-33) H 10/21/23 03:59 MCHC 35.6 g/dL (30-55) 10/21/23 03:59 RDW 17.5 % (12.1-15.1) H 10/21/23 03:59 Sodium 131 mmol/L (136-145) L 10/21/23 03:59 Potassium 3.7 mmol/L (3.5-5.1) 10/21/23 03:59 Chloride 97 mmol/L (98-107) L 10/21/23 03:59 Carbon Dioxide 23 mmol/L (22-29) 10/21/23 03:59 Anion Gap 14.7 (5-19) 10/21/23 03:59 BUN 22 mg/dL (6-20) H 10/21/23 03:59 Creatinine 1.5 mg/dL (0.7-1.2) H 10/21/23 03:59 GFR Calculation 49.7 mL/min (90-130) L 10/21/23 03:59 Additional Comments:: NEW DOSE BY TELE[facility]PHARM[facility]Y; TROUGH NEEDED 10/21 2300
[2023-10-21] MEDS: midodrine 5 mg TABLET 10 MG PO ×2 (14:18→20:32)
--- NOTE | 2023-10-21 14:35 | ECG_ITS ---
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 Measurements Intervals [place] Rate: 62 P: 38 [place]: 162 QRS: -18 QRSD: 93 T: 9 QT: 423 QTc: 433 Interpretive Statements SINUS RHYTHM NONSPECIFIC T-WAVE ABNORMALITY Compared to ECG 10/21/2023 11:18:18 T-wave abnormality now present Electronically Signed On 10-21-2023 14:28:46 CDT by Kendrick Gordon M.D. [email or web address] general [id number]
[2023-10-21 14:54] LABS: Troponin 5 6HR 8.17 ng/L (0-15)
[2023-10-21 14:55] LABS: Lactic Sepsis W/Reflex 2.2 mmol/L (0.5-2.2)
[2023-10-21 14:56] LABS: Troponin 5 6HR Delta -1.83 ng/L (0-12)
--- NOTE | 2023-10-21 15:49 | P.PN_ITS ---
Subjective 2 Subjective: - Patient was examined multiple times at the morning into the afternoon -In the morning he was seen, he is alert oriented x 3, following all commands, complaining of abdominal pain, weakness, he is on 8 of Levophed -We discussed his prior history, he has a history of liver cirrhosis secondary to prior history of alcoholism, he he is adamant and family numbers at bedside are adamant that he has not consumed any alcohol over the last 2 years -He follows up with a [facility] out of [place], he has had EGDs with esophageal banding -He denies a history of portal vein thro mbus, denies a history of spontaneous bacterial peritonitis, his last paracentesis was a few months ago and before that it was in 2021 -He tells me that his MELD score is arou nd 15 and his GI doctor at [place] was going to refer him to the liver transplant team at [facility] once his MELD score reach 16 he tells me -We had a detailed discussion with him t hat he likely has spontaneous bacterial peritonitis, awaiting on the cultures from his ascites is highly suspicious based upon his paracentesis that he has spontaneous bacterial peritonitis, he is on broad-spectrum antibiotic therapy he is in septic shock, requiring 8 of Levophed, he also has a UTI which also could be contributing to his sepsis. He also has LAQUITA which is likely secondary to sepsis but also hepatorenal syndrome, will consult nephrology. In addition I am also worried about his decompensated liver failure, his current MELD score is 25, as his INR is 1.7, creatinine is 1.5, bili is 6.9. We discussed the morbidity and mortality associated with spontaneous bacterial peritonitis, sepsis, LAQUITA, hepatorenal syndrome, acute decompensated liver failure. We had a detailed discussion that we do not have GI or hepatology or transplant here available at [facility]. We discussed continue medical interventions here, giving him time to see if he clinically improves, which patient agrees. However as we do not have hepatology, or GI or transplant and given the morbidity mortality associate with his current diagnosis. Given patient's young age of 48, he has not drink alcohol 2 years, he has underlying liver cirrhosis, I think that discussing his case with [facility] and getting him on the transfer list would be reasonable given lack of specialty support here at [facility], concern for his worsening liver function. After discussing the risk benefits of all options, he voiced understanding, all questions answered, shared decision making, I gave him and his family some time to think about considering transfer to tertiary level center. -Patient and family have agreed to trans joseph to tertiary level center, [facility], for the need for hepatology, GI, possible transplant team, infectious disease -Spoke to [facility], they natalya suárez accepted the transfer, awaiting on a bed, I am told that this could be a few days to few weeks, -Patient was seen again in the evening h e still on 8 of Levophed alert awake, feeling fatigued and tired, blood pressure still soft MAP around 65, O2 he is on 2 L, he had a Rhodes catheter placed, urine output 300 mL, we discussed him being accepted at [facility], he is agreeable, we discussed that this can happen certainly at any time but it could take up to a few weeks. Certainly if he gets better here, can he can be discharged, to follow-up [facility] as outpatient. But I think that he is going to be in the ICU at least for a few days, hoping his condition continues to improve but at any time certainly it can worsen. -He voiced understanding, all question a nswered, agreed to proceed - Vitals/I&O/Wt Last Vital Signs Temp 97.9 F 10/21/23 12:30 Pulse 72 10/21/23 14:09 Resp 17 10/21/23 12:30 BP 89/65 10/21/23 12:30 Pulse Ox 94 10/21/23 12:30 O2 Del Method Nasal Cannula 10/21/23 12:30 O2 Flow Rate 2 10/21/23 12:30 10/21/23 10/21/23 10/21/23 06:59 14:59 22:59 Intake Total 2360.313 / 2360.313 1019.883 / 1019.883 Output Total 300 / 300 Balance 2060.313 / 2060.313 1019.883 / 1019.883 Weight last 48 hrs Weight 79.832 kg Weight 79.832 kg Weight 78.29 kg Physical Exam 2 Const: COMMON NORMALS: no acute distress and patient oriented x3 Eye: COMMON NORMALS: Equal, round and reactive pupils present and EOMs intact bilaterally PUPIL: Yes Equal, round and reactive pupils present Neck/C-Spine: COMMON NORMALS: no lymphadenopathy Resp: COMMON NORMALS: normal respiratory effort, No retractions, No use of accessory muscles and clear to auscultation bilaterally AUSCULTATION: clear to auscultation bilaterally Cardio: COMMON NORMALS: regular rate, regular rhythm, S1 normal heart sound present and S2 normal heart sound present RATE: regular rate RHYTHM: r egular rhythm HEART SOUNDS: S1 normal heart sound present and S2 normal heart sound present GI: OTHER: abdomen soft, non distended, diffusely tender, no gaurding, no rebound, no rigidity, good bowel sounds in all 4 quadrants Extremity: COMMON NORMALS: no calf tenderness and no pedal edema Neuro: COMMON NORMALS: patient oriented x3, CN's II-XII intact bilaterally and moves all extremities Psych: COMMON NORMALS: mental status grossly normal Urinary Catheter Management: Rhodes: Cath Placed During This Visit: yes Urinary Catheter Date of Insertion: 10/21/23 Urinary Catheter Time of Insertion: 10:00 Sepsis: Is patient septic: Yes Focused sepsis exam performed: Yes F ocused sepsis exam: DP PT pulses barely palpable, cap refill greater than 2 seconds, mild mottling bilateral extremities Date exam was performed: 10/21/23 Time exam was performed: 08:30 Data 10/21/23 03:59 10/21/23 03:59 Micro: Microbiology 10/21/23 01:00 Gram Stain - Final Peritoneal Fluid 10/20/23 21:30 Blood Culture - Preliminary Blood SPECIMEN COLLECTED 10/20/23 21:38 Blood Culture - Preliminary Blood SPECIMEN COLLECTED A&P Assessment and plan (1) Leukocytosis: Leukocytosis, -Likely secondary to spontaneous bacterial peritonitis -Likely sec to UTI -With septic shock, requiring 8 of Levophed SIRS: Leukocytosis Tachycardia likely blunted from beta-dimas usage Source suspected to be SBP and UTI Status post 2L IVF bolus in ED Central line placed Levophed, vasopressor support for shock with MAP goal of 65 mmHg Diagnostic paracentesis shows evidence of SBP End organ damage also noted through LAQUITA, lactic acidosis, shock Start cefepime Start vancomycin MRSA swab SIRS P44.8, Pro-Pieter 10.4 Panculture Follow blood cultures Follow urine cultures Follow ascites cultures (2) UTI (urinary tract infection): Acute complicated urinary tract infection Urinalysis reviewed Follow urine culture Start cefepime (3) Liver cirrhosis: Acute decompensated liver cirrhosis with ascites and and history of esophageal varices Hyperammonia noted Patient reports recent therapeutic paracentesis w/ removal of 4.[address]/CT abdomen pelvis w con* [id number] IMPRESSION: 1. Hepatic cirrhosis with evidence of portal hypertension including ascites, mesenteric edema, splenomegaly, portosystemic collaterals, nonspecific gallbladder wall thickening. Areas of decreased attenuation in the hepatic parenchyma are nonspecific and masses are not excluded on single phase imaging. 2. Diffuse gastric wall thickening, areas of small bowel wall thickening, and colonic wall thickening all likely related to portal hypertension, worsened compared to prior. -Awaiting a bed at [facility] -Could be a candidate for TIPS -Has hyperammonemia, rifaximin Qualifiers: Ascites presence: with ascites Hepatic cirrhosis type: unspecified hepatic cirrhosis Qualified Code(s): K74.60 - Unspecified cirrhosis of liver; R18.8 - Other ascites (4) Acute kidney injury: Admission creatinine 1.7, previously 0.8 Hold diuretics Status post more than 2 L IV fluid in ED Suspect possible hepatorenal, septic shock, SBP, UTI Renally dose medications Strict I's and O's Daily weights IV fluids albumin consult nephrology place rhodes catheter (5) Hyponatremia: Hyponatremia secondary to sequela of liver cirrhosis Status post NS x 2 L in ED Monitor electrolytes (6) Thrombocytopenia: Thrombocytopenia secondary to underlying liver cirrhosis Monitor for signs and symptoms of bleeding (7) Hyperbilirubinemia: Hyperbilirubinemia secondary to underlying liver dysfunction from decompensated cirrhosis Avoid hepatotoxins Trend CMP (8) Transaminitis: Elevated liver enzymes with AST greater than ALT Avoid hepatotoxins Trend CMP (9) Tobacco use disorder: Patient would benefit from smoking cessation (10) Septic shock: - Secondary to spontaneous bacterial peritonitis, UTI -Maintain MAP in 65 -Monitor urine output -Monitor creatinine -Currently on Levophed at 8 (11) SBP (spontaneous bacterial peritonitis): - Ascites yellow, cloudy, 4147 WBCs, PMN 3400, glucose 105, total protein 0.7, albumin 0.5 -Follow-up cultures -Will likely require chronic prophylaxis (12) Hepatorenal syndrome: Plan DVT ppx: SCD - Patient was examined multiple times at the morning into the afternoon -In the morning he was seen, he is alert oriented x 3, following all commands, complaining of abdominal pain, weakness, he is on 8 of Levophed -We discussed his prior history, he has a history of liver cirrhosis secondary to prior history of alcoholism, he he is adamant and family numbers at bedside are adamant that he has not consumed any alcohol over the last 2 years -He follows up with a [facility] out of [place], he has had EGDs with esophageal banding -He denies a history of portal vein thrombus, denies a history of spontaneous bacterial peritonitis, his last paracentesis was a few months ago and before that it was in 2021 -He tells me that his MELD score is around 15 and his GI doctor at [place] was going to refer him to the liver transplant team at [facility] once his MELD score reach 16 he tells me -We had a detailed discussion with him that he likely has spontaneous bacterial peritonitis, awaiting on the cultures from his ascites is highly suspicious based upon his paracentesis that he has spontaneous bacterial peritonitis, he is on broad-spectrum antibiotic therapy he is in septic shock, requiring 8 of Levophed, he also has a UTI which also could be contributing to his sepsis. He also has LAQUITA which is likely secondary to sepsis but also hepatorenal syndrome, will consult nephrology. In addition I am also worried about his decompensated liver failure, his current MELD score is 25, as his INR is 1.7, creatinine is 1.5, bili is 6.9. We discussed the morbidity and mortality associated with spontaneous bacterial peritonitis, sepsis, LAQUITA, hepatorenal syndrome, acute decompensated liver failure. We had a detailed discussion that we do not have GI or hepatology or transplant here available at [facility]. We discussed continue medical interventions here, giving him time to see if he clinically improves, which patient agrees. However as we do not have hepatology, or GI or transplant and given the morbidity mortality associate with his current diagnosis. Given patient's young age of 48, he has not drink alcohol 2 years, he has underlying liver cirrhosis, I think that discussing his case with [facility] and getting him on the transfer list would be reasonable given lack of specialty support here at [facility], concern for his worsening liver function. After discussing the risk benefits of all options, he voiced understanding, all questions answered, shared decision making, I gave him and his family some time to think about considering transfer to tertiary level center. -Patient and family have agreed to transfer to tertiary level center, [facility], for the need for hepatology, GI, possible transplant team, infectious disease -Spoke to [facility], they have accepted the transfer, awaiting on a bed, I am told that this could be a few days to few weeks, -Patient was seen again in the evening he still on 8 of Levophed alert awake, feeling fatigued and tired, blood pressure still soft MAP around 65, O2 he is on 2 L, he had a Rhodes catheter placed, urine output 300 mL, we discussed him being accepted at [facility], he is agreeable, we discussed that this can happen certainly at any time but it could take up to a few weeks. Certainly if he gets better here, can he can be discharged, to follow-up [facility] as outpatient. But I think that he is going to be in the ICU at least for a few days, hoping his condition continues to improve but at any time certainly it can worsen. -He voiced understanding, all question answered, agreed to proceed -Full code -Status is critical, prognosis guarded Attestations 2 Medical Necessity Statement*: Patient requires hospitalization, inpatient, greater than 2 midnight, for septic shock secondary to spontaneous bacterial peritonitis, UTI, acute kidney injury, sepsis, hepatorenal syndrome Coding Level of Care Code Critical Care >/= 30 minutes Critical care time (in minutes): 45 The high probability of a clinically significant, sudden or life threatening deterioration, as referenced in this documentation, required my full and direct attention, intervention and personal management. The critical care time shown is in addition to time spent performing any reported separately billable procedures and includes the following: [x] Data and vital sign review and interpretation [x ] Patient assessment, examination and intervention [x] Medication orders and management [x] Patient/Family updates as able [x] Care Coordination and Documentation. Diagnoses Leukocytosis D72.829 UTI (urinary tract infection) N39.0 Liver cirrhosis K74.60; R18.8 Ascites presence: with ascites Hepatic cirrhosis type: unspecified hepatic cirrhosis Acute kidney injury N17.9 Hyponatremia E87.1 Thrombocytopenia D69.6 Hyperbilirubinemia E80.6 Transaminitis R74.01 Tobacco use disorder F17.200 Septic shock A41.9; R65.21 SBP (spontaneous bacterial peritonitis) K65.2 Hepatorenal syndrome K76.7
--- NOTE | 2023-10-21 16:13 | PC.NURSE ---
[facility] for [facility] on patient condition, update given.
[2023-10-21 16:21] LABS: Reflex Lactate Order REFLEX LACTIC ORDERD
[2023-10-21] MEDS: norepinephrine 4 MG/250 ML BAG 30 MG IV (16:32)
[2023-10-21 17:31] LABS: Lactic Acid level (Lactate) 1.5 mmol/L (0.5-2.2)
[2023-10-22] VITALS (48 sets, daily range): BP systolic 74–119; BP diastolic 40–73; PULSE 50–88; RESP 12–26; TEMP 36.8–37.3; O2SAT 91–98; BMI 27.3
[2023-10-22] MEDS: cefepime 2,000 MG in sodium chloride 0.9% (plus) 50 ML 100 MG IV ×2 (01:15→14:08)
[2023-10-22] MEDS: albumin 25 G/100 ML BAG 60 G IV ×2 (01:16→08:04)
[2023-10-22] MEDS: norepinephrine 4 MG/250 ML BAG 15 MG IV (04:15)
--- NOTE | 2023-10-22 04:23 | PC.NURSE ---
Rhodes balloon: Patient's rhodes leaked several times through the night, balloon was drained to assess amount inflated with. 8mL was removed from rhodes balloon then replaced, an additional 2mL were added, totalling 10mL of NS.
[2023-10-22 05:01] LABS: Basophils # 0.1 10^3/uL (0.0-0.1); Basophils % 0.5 %; Eosinophils # 0.4 10^3/uL (0.0-0.8); Eosinophils % 3.5 %; Hematocrit 27.8 % (37-53); Lymphocytes # 1.1 10^3/uL (0.8-4.8); Lymphocytes % 10.7 %; Mean Corpuscular HGB Conc 35.6 g/dL (30-55); Mean Corpuscular Hemoglobin 36.9 pg (27-33); Mean Corpuscular Volume 103.7 fl (82-101); Mean Platelet Volume 11.6 fL (7.4-10.4); Monocytes # 2.1 10^3/uL (0.2-0.9); Monocytes % 19.4 %; Neutrophils # 6.92 10^3/uL (1.8-7.7); Neutrophils % 65.2 %; Nucleated Red Blood Cells % 0 %; Platelet Count 95 10^3/cmm (157-399); Red Blood Count 2.68 10^6/uL (3.85-5.65); Red Cell Distribution Width 17.6 % (12.1-15.1); White Blood Count 10.61 10^3/uL (3.29-11.43)
[2023-10-22] MEDS: vancomycin 1,250 MG/250 ML PIGGYBACK 166.67 MG IV (05:03)
[2023-10-22] MEDS: HYDROmorphone 1 mg/mL INJ 1 mL 0.2 MG IVP (05:08)
[2023-10-22 05:12] LABS: INR 1.72 (0.8-1.2)
[2023-10-22 05:18] LABS: Lactate (Lactic Acid level) 1.7 mmol/L (0.5-2.2)
[2023-10-22 05:21] LABS: Ammonia 65 umol/L (16-60)
[2023-10-22 05:25] LABS: NT Pro B Type Natriuretic Pept 1114 pg/mL (0-125); Procalcitonin 7.86 ng/mL (0-0.5)
[2023-10-22 05:38] LABS: Alanine Aminotransferase 17 U/L (0-41); Albumin Level 3.2 g/dL (3.5-5.2); Alkaline Phosphatase 99 U/L (40-130); Anion Gap 12.6 (5-19); Aspartate Amino Transferase 28 U/L (0-40); Blood Urea Nitrogen 21 mg/dL (6-20); C Reactive Protein 95.6 mg/L (0.0-4.9); Calcium 7.7 mg/dL (8.5-10.5); Carbon Dioxide 24 mmol/L (22-29); Chloride 98 mmol/L (98-107); Creatinine Clr Calc Pharmacy 77.5606; Globulin 2.4 g/dL (1.3-4.6); Glomerular Filtration Rate 64.4 mL/min (90-130); Glucose 101 mg/dL (65-115); Osmolality Calculated 275 mOsm/kg (285-295); Phosphorus 1.8 mg/dL (2.5-4.5); Potassium 3.6 mmol/L (3.5-5.1); Sodium 131 mmol/L (136-145); Total Bilirubin 5.5 mg/dL (0.15-1.2); Total Protein 5.6 g/dL (6.6-8.7)
[2023-10-22] MEDS: midodrine 5 mg TABLET 10 MG PO (08:03)
[2023-10-22] MEDS: rifaximin 200 mg Tablet 600 MG PO ×2 (08:03→17:23)
--- NOTE | 2023-10-22 09:38 | PC.NURSE ---
Estephania from [facility] provided with update on patient condition.
--- NOTE | 2023-10-22 09:56 | PC.NURSE ---
Patient up to [facility] stated he was dizzy, HR into low 30's. back in bed HR in 50's no longer symptomatic. Dr. Cook notified.
--- NOTE | 2023-10-22 10:03 | ECG_ITS ---
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 Measurements Intervals Union Rate: 56 P: 37 MS: 163 QRS: -9 QRSD: 104 T: 1 QT: 432 QTc: 420 Interpretive Statements SINUS BRADYCARDIA Compared to ECG 10/21/2023 14:24:57 Sinus rhythm no longer present T-wave abnormality no longer present Electronically Signed On 10-22-2023 11:11:45 CDT by Kendrick Gordon M.D. [id number]
--- NOTE | 2023-10-22 10:16 | P.PN_ITS ---
Subjective 2 Subjective: events noted Medications: Reviewed: Yes Vitals/I&O/Wt Last Vital Signs Temp 98.8 F 10/22/23 08:00 Pulse 61 10/22/23 08:00 Resp 17 10/22/23 08:00 BP 99/63 10/22/23 08:00 Pulse Ox 96 10/22/23 08:00 O2 Del Method Nasal Cannula 10/22/23 08:00 O2 Flow Rate 2 10/22/23 08:00 10/21/23 10/22/23 10/22/23 22:59 06:59 14:59 Intake Total 1499.072 / 2518.955 491.75 / 3010.705 200 / 200 Output Total 600 / 600 600 / 1200 Balance 899.072 / 1918.955 -108.25 / 1810.705 200 / 200 Weight last 48 hrs Weight 81.5 kg Weight 79.832 kg Weight 79.832 kg Weight 78.29 kg Physical Exam 2 Narrative: Patient is awake alert, no distress On 2 L O2 by nasal cannula HEENT S1-S2 rate and rhythm Lungs clear per report Abdomen soft and distended No pedal edema Urinary Catheter Management: Osorio: Cath Placed During This Visit: yes Reason for Continuing Indwelling Catheter: Accurate Measurement of Urinary Output in Critically Ill Patients Urinary Catheter Date of Insertion: 10/21/23 Urinary Catheter Time of Insertion: 10:00 Data 10/23/23 03:27 10/23/23 03:27 Micro: Microbiology 10/21/23 01:00 Gram Stain - Final Peritoneal Fluid Anaerobic Culture - Preliminary Body Fluid Culture - Preliminary 10/20/23 22:40 Urine Culture - Final Urine,Clean Catch 10/20/23 21:30 Blood Culture - Preliminary Blood NEGATIVE TO DATE 10/20/23 21:38 Blood Culture - Preliminary Blood NEGATIVE TO DATE A&P Assessment and plan (1) Acute kidney injury: 1. Acute kidney injury: Baseline creatinine was 0.9, patient's creatinine was 1.7. Etiology likely prerenal and post paracentesis renal dysfunction in the setting of decompensated liver cirrhosis and recent paracentesis. -Blood pressure borderline low -Cr improved -c/w midodrine and IV albumin, -no acute indication for dialysis currently, also patient would not be a good dialysis candidate for hD and would recommend conservative management if renal function gets worse. -Holding Lasix for now, avoid nephrotoxins and IV contrast studies 2. Hyponatremia: Likely in the setting of liver cirrhosis, monitor 3. Decompensated liver cirrhosis 4. Sepsis in the setting of UTI, management per primary team Attestations 2 Medical Necessity Statement*: per guillermo Coding Level of Care Code Acute Code for [facility] Fwd Diagnoses Acute kidney injury N17.9
[2023-10-22] MEDS: pantoprazole 40 mg SDV IVP ×2 (11:17→23:34)
[2023-10-22] MEDS: sodium chloride 0.9% 1,000 ML 75 ML IV (11:17)
--- NOTE | 2023-10-22 11:55 | PM.PN ---
Subjective Subjective: This morning patient is on Levophed 4 mics I will discontinue IV fluids Continue antibiotics Creatinine improving Patient became bradycardic today when he tried to get out of bed, will reduce the dose of midodrine Once we are able to turn off Levophed patient might be able to go to [facility] Vitals/I&O/Wt Last Vital Signs Temp 98.8 F 10/22/23 08:00 Pulse 61 10/22/23 08:00 Resp 17 10/22/23 08:00 BP 99/63 10/22/23 08:00 Pulse Ox 96 10/22/23 08:00 O2 Del Method Nasal Cannula 10/22/23 08:00 O2 Flow Rate 2 10/22/23 08:00 10/21/23 10/22/23 10/22/23 22:59 06:59 14:59 Intake Total 1499.072 / 2518.955 491.75 / 3010.705 1240.75 / 1240.75 Output Total 600 / 600 600 / 1200 Balance 899.072 / 1918.955 -108.25 / 5278.816 5529.75 / 1240.75 Weight last 48 hrs Weight 81.5 kg Weight 79.832 kg Weight 79.832 kg Weight 78.29 kg Physical Exam Narrative: Became bradycardic this morning Symptomatic bradycardia Slightly tender midepigastric region Currently on 2 L Family is at the bedside Scleral icterus No signs of asterixis Pleasant cooperative Nonfocal neuroexam Urinary Catheter Management: Osorio: Cath Placed During This Visit: yes Reason for Continuing Indwelling Catheter: Accurate Measurement of Urinary Output in Critically Ill Patients Urinary Catheter Date of Insertion: 10/21/23 Urinary Catheter Time of Insertion: 10:00 Data 10/22/23 04:19 10/22/23 04:19 Micro: Microbiology 10/21/23 01:00 Gram Stain - Final Peritoneal Fluid Anaerobic Culture - Preliminary Body Fluid Culture - Preliminary 10/20/23 22:40 Urine Culture - Final Urine,Clean Catch 10/20/23 21:30 Blood Culture - Preliminary Blood NEGATIVE TO DATE 10/20/23 21:38 Blood Culture - Preliminary Blood NEGATIVE TO DATE A&P Assessment and plan (1) Leukocytosis: (2) UTI (urinary tract infection): Acute complicated urinary tract infection Urinalysis reviewed Follow urine culture Start cefepime (3) Liver cirrhosis: Qualifiers: Ascites presence: with ascites Hepatic cirrhosis type: unspecified hepatic cirrhosis Qualified Code(s): K74.60 - Unspecified cirrhosis of liver; R18.8 - Other ascites (4) Acute kidney injury: (5) Hyponatremia: (6) Thrombocytopenia: (7) Hyperbilirubinemia: (8) Transaminitis: (9) Tobacco use disorder: (10) Septic shock: (11) SBP (spontaneous bacterial peritonitis): (12) Hepatorenal syndrome: Plan Decompensated liver cirrhosis Will add lactulose Rifaximin Third spacing Discontinue fluids Decrease the dose of albumin Secondary to decompensate liver cirrhosis patient has hypotension Bradycardia I will reduce the dose of midodrine which is a side effect Awaiting bed at [place] LAQUITA: Concern for hepatorenal syndrome, at this point creatinine has improved adequate urine output Appreciate nephro recommendations Acute hypoxia requiring 2 L Once we are able to turn off Levophed patient can be transferred to [facility] Not an ideal candidate for diuretics Full code Low-sodium cardiac diet Discontinue Dilaudid I would use oxycodone if needed for pain Patient has history of of esophageal varices, hemoglobin has been stable Attestations Medical Necessity Statement*: Continue medical management Diagnoses Leukocytosis D72.829 UTI (urinary tract infection) N39.0 Liver cirrhosis K74.60; R18.8 Ascites presence: with ascites Hepatic cirrhosis type: unspecified hepatic cirrhosis Acute kidney injury N17.9 Hyponatremia E87.1 Thrombocytopenia D69.6 Hyperbilirubinemia E80.6 Transaminitis R74.01 Tobacco use disorder F17.200 Septic shock A41.9; R65.21 SBP (spontaneous bacterial peritonitis) K65.2 Hepatorenal syndrome K76.7
[2023-10-22] MEDS: midodrine 5 mg TABLET PO ×2 (14:08→20:10)
[2023-10-22] MEDS: oxyCODONE 5 mg IR Tab/Cap PO (14:48)
[2023-10-22 16:55] LABS: Methicillin-Resist S.aureu PCR NOT DETECTED (NOT DETECTED)
[2023-10-22] MEDS: calcium carb-vit d 600mg/400unit 1 Tablet 1 EACH PO (17:23)
[2023-10-22] MEDS: phosphorus 250 mg Tablet PO (17:23)
[2023-10-23] VITALS (35 sets, daily range): BP systolic 92–106; BP diastolic 56–74; PULSE 59–92; RESP 13–21; TEMP 36.8–37.3; O2SAT 93–98
[2023-10-23] MEDS: cefepime 2,000 MG in sodium chloride 0.9% (plus) 50 ML 100 MG IV ×2 (02:06→14:07)
[2023-10-23 03:54] LABS: Basophils % 0.6 %; Eosinophils # 0.4 10^3/uL (0.0-0.8); Eosinophils % 5.2 %; Hematocrit 28.3 % (37-53); Lymphocytes # 0.9 10^3/uL (0.8-4.8); Lymphocytes % 12.8 %; Mean Corpuscular HGB Conc 35.7 g/dL (30-55); Mean Corpuscular Hemoglobin 36.7 pg (27-33); Mean Corpuscular Volume 102.9 fl (82-101); Mean Platelet Volume 11.3 fL (7.4-10.4); Monocytes # 1.3 10^3/uL (0.2-0.9); Monocytes % 18.6 %; Neutrophils # 4.32 10^3/uL (1.8-7.7); Neutrophils % 62.2 %; Nucleated Red Blood Cells % 0 %; Platelet Count 107 10^3/cmm (157-399); Red Blood Count 2.75 10^6/uL (3.85-5.65); Red Cell Distribution Width 17.2 % (12.1-15.1); White Blood Count 6.94 10^3/uL (3.29-11.43)
[2023-10-23] MEDS: oxyCODONE 5 mg IR Tab/Cap PO ×4 (04:12→21:07)
[2023-10-23 04:14] LABS: Anion Gap 12.4 (5-19); Blood Urea Nitrogen 16 mg/dL (6-20); Calcium 7.9 mg/dL (8.5-10.5); Carbon Dioxide 23 mmol/L (22-29); Chloride 99 mmol/L (98-107); Creatinine Clr Calc Pharmacy 103.4142; Glomerular Filtration Rate 89.7 mL/min (90-130); Glucose 131 mg/dL (65-115); Osmolality Calculated 275 mOsm/kg (285-295); Potassium 3.4 mmol/L (3.5-5.1); Sodium 131 mmol/L (136-145)
[2023-10-23] MEDS: phosphorus 250 mg Tablet PO ×2 (08:59→17:13)
[2023-10-23] MEDS: calcium carb-vit d 600mg/400unit 1 Tablet 1 EACH PO ×2 (08:59→17:12)
[2023-10-23] MEDS: rifaximin 200 mg Tablet 600 MG PO ×2 (08:59→17:12)
[2023-10-23] MEDS: midodrine 5 mg TABLET PO ×3 (08:59→21:00)
[2023-10-23] MEDS: albumin 25 G/100 ML BAG 60 G IV (09:07)
--- NOTE | 2023-10-23 10:07 | P.PN_ITS ---
Subjective 2 Subjective: doing well on RA Medications: Reviewed: Yes Vitals/I&O/Wt Last Vital Signs Temp 98.5 F 10/23/23 08:00 Pulse 70 10/23/23 08:00 Resp 14 10/23/23 09:05 BP 103/74 10/23/23 08:00 Pulse Ox 97 10/23/23 09:05 O2 Del Method Room Air 10/23/23 08:00 O2 Flow Rate 2 10/22/23 12:30 10/22/23 10/23/23 10/23/23 22:59 06:59 14:59 Intake Total 220 / 1617.875 251.875 / 1869.750 Output Total 850 / 850 350 / 1200 Balance -630 / 767.875 -98.125 / 669.750 Weight last 48 hrs Weight 81.5 kg Weight 81.5 kg Weight 81.5 kg Physical Exam 2 Narrative: Patient is awake alert, no distress On 2 L O2 by nasal cannula HEENT S1-S2 rate and rhythm Lungs clear per report Abdomen soft and distended No pedal edema Urinary Catheter Management: Osorio: Cath Placed During This Visit: yes Reason for Continuing Indwelling Catheter: Accurate Measurement of Urinary Output in Critically Ill Patients Urinary Catheter Date of Insertion: 10/21/23 Urinary Catheter Time of Insertion: 10:00 Data 10/23/23 03:27 10/23/23 03:27 A&P Assessment and plan (1) Acute kidney injury: 1. Acute kidney injury: Baseline creatinine was 0.9, patient's creatinine was 1.7. Etiology likely prerenal and post paracentesis renal dysfunction in the setting of decompensated liver cirrhosis and recent paracentesis. -Blood pressure borderline low -Cr improved -c/w midodrine and IV albumin, Cr improved , will add lasix 20 mg daily - patient would not be a good dialysis candidate for hD and would recommend conservative management if renal function gets worse. - 2. Hyponatremia: Likely in the setting of liver cirrhosis, monitor 3. Decompensated liver cirrhosis 4. Sepsis in the setting of UTI, management per primary team Attestations 2 Medical Necessity Statement*: per [facility] Coding Level of Care Code Acute Code for [facility] Diagnoses Acute kidney injury N17.9
--- NOTE | 2023-10-23 10:08 | PC.NURSE ---
Naya from [facility] called for an update, Update given. To call back when pt transfers to [facility]. [phone].
--- NOTE | 2023-10-23 10:45 | PM.PN ---
Subjective Subjective: Has been off Levophed since 3 PM yesterday Blood pressure stable I have cut back on midodrine dose because of bradycardia Hemoglobin is stable Can be transferred out of ICU to [facility] Potassium replenished We are continuing albumin, nephrology recommended addition of low-dose Lasix by tomorrow Vitals/I&O/Wt Last Vital Signs Temp 98.5 F 10/23/23 08:00 Pulse 70 10/23/23 08:00 Resp 14 10/23/23 09:05 BP 103/74 10/23/23 08:00 Pulse Ox 97 10/23/23 09:05 O2 Del Method Room Air 10/23/23 08:00 O2 Flow Rate 2 10/22/23 12:30 10/22/23 10/23/23 10/23/23 22:59 06:59 14:59 Intake Total 220 / 1617.875 251.875 / 1869.750 400 / 400 Output Total 850 / 850 350 / 1200 Balance -630 / 767.875 -98.125 / 669.750 400 / 400 Weight last 48 hrs Weight 81.5 kg Weight 81.5 kg Weight 81.5 kg Physical Exam Narrative: Distended abdomen, No significant tenderness or signs of peritonitis Awake and alert Hemodynamically stable Currently on room air Osorio catheter in place at the bedside No audible stridor or wheezing Pleasant cooperative No asterixis Urinary Catheter Management: Osorio: Cath Placed During This Visit: yes Reason for Continuing Indwelling Catheter: Accurate Measurement of Urinary Output in Critically Ill Patients Urinary Catheter Date of Insertion: 10/21/23 Urinary Catheter Time of Insertion: 10:00 Data 10/23/23 03:27 10/23/23 03:27 Micro: Microbiology 10/21/23 01:00 Gram Stain - Final Peritoneal Fluid Anaerobic Culture - Preliminary Body Fluid Culture - Preliminary A&P Assessment and plan (1) Leukocytosis: (2) UTI (urinary tract infection): (3) Liver cirrhosis: Qualifiers: Ascites presence: with ascites Hepatic cirrhosis type: unspecified hepatic cirrhosis Qualified Code(s): K74.60 - Unspecified cirrhosis of liver; R18.8 - Other ascites (4) Acute kidney injury: (5) Hyponatremia: (6) Thrombocytopenia: (7) Hyperbilirubinemia: (8) Transaminitis: (9) Tobacco use disorder: (10) Septic shock: (11) SBP (spontaneous bacterial peritonitis): (12) Hepatorenal syndrome: Plan Decompensated liver cirrhosis Awaiting bed at [place] to be evaluated by precision layout worker for liver transplant No active signs of encephalopathy Continue lactulose and rifaximin Third spacing Discontinue fluids Decrease the dose of albumin Continue midodrine at lower dose because of bradycardic episode Plan to add low-dose Lasix by tomorrow Continue albumin Multiple PVCs keep potassium above 4 and magnesium above 2 LAQUITA: Creatinine improved No indication for dialysis Acute hypoxia requiring 2 L: Currently being weaned off to room air Full code Low-sodium cardiac diet Chronic anemia: Hemoglobin stable Patient has history of of esophageal varices, hemoglobin has been stable Attestations Medical Necessity Statement*: Transfer out of ICU to [facility] Diagnoses Leukocytosis D72.829 UTI (urinary tract infection) N39.0 Liver cirrhosis K74.60; R18.8 Ascites presence: with ascites Hepatic cirrhosis type: unspecified hepatic cirrhosis Acute kidney injury N17.9 Hyponatremia E87.1 Thrombocytopenia D69.6 Hyperbilirubinemia E80.6 Transaminitis R74.01 Tobacco use disorder F17.200 Septic shock A41.9; R65.21 SBP (spontaneous bacterial peritonitis) K65.2 Hepatorenal syndrome K76.7
[2023-10-23 11:39] LABS: Magnesium 1.9 mg/dL (1.7-2.3)
[2023-10-23] MEDS: pantoprazole 40 mg SDV IVP ×2 (12:27→23:02)
[2023-10-23] MEDS: potassium chloride ER 20 mEq Tablet 40 MEQ PO (12:28)
--- NOTE | 2023-10-23 15:11 | PC.NURSE ---
Report called [facility]. Report given to May.
--- NOTE | 2023-10-23 15:56 | PC.NURSE ---
Pt transferred to room 276-2. All belongings packed up by with pt on transfer.
[2023-10-23] MEDS: lactulose oral liq 20 gm/30 mL UDC PO (17:12)
[2023-10-24] VITALS (13 sets, daily range): BP systolic 101–114; BP diastolic 63–73; PULSE 71–102; RESP 16–18; TEMP 36.8–37.1; O2SAT 94–98
[2023-10-24] MEDS: cefepime 2,000 MG in sodium chloride 0.9% (plus) 50 ML 100 MG IV ×2 (02:31→15:12)
[2023-10-24] MEDS: lactulose oral liq 20 gm/30 mL UDC PO ×2 (03:01→15:12)
[2023-10-24] MEDS: oxyCODONE 5 mg IR Tab/Cap PO ×4 (03:06→21:43)
[2023-10-24 07:01] LABS: Anion Gap 13.8 (5-19); Blood Urea Nitrogen 13 mg/dL (6-20); Calcium 8.4 mg/dL (8.5-10.5); Carbon Dioxide 23 mmol/L (22-29); Chloride 103 mmol/L (98-107); Glomerular Filtration Rate 89.7 mL/min (90-130); Glucose 105 mg/dL (65-115); Osmolality Calculated 282 mOsm/kg (285-295); Potassium 3.8 mmol/L (3.5-5.1); Sodium 136 mmol/L (136-145)
--- NOTE | 2023-10-24 07:33 | PM.PN ---
Subjective Subjective: The patient was seen and examined. Patient complains of abdominal distention. He has nausea poor appetite and weight. Denies urinary complaints. Denies diarrhea or chest pain. Or other complaints. Medications: Reviewed: Yes Medication Review Details: Current Medications Calcium Carbonate (Calcium Carb-Vit D 600mg/400unit 1 Tablet) 1 each PO BID [facility] Last Admin: 10/23/23 17:12 Dose: 1 each Cefepime HCl 2,000 mg/ Sodium (Chloride) 50 mls @ 100 mls/hr IV Q12H [facility] Last Infusion: 10/24/23 03:01 Dose: Infused Albumin Human (Albumin) 25 g in 100 mls @ 60 mls/hr IV DAILY [facility] Last Infusion: 10/23/23 11:00 Dose: Infused Lactulose (Lactulose Oral Liq 20 Gm/30 Ml Udc) 20 gm PO Q12H [facility] Last Admin: 10/24/23 03:01 Dose: 20 gm Midodrine (Midodrine 5 Mg Tablet) 5 mg PO TID [facility] Last Admin: 10/23/23 21:00 Dose: 5 mg Ondansetron HCl (Ondansetron 2 Mg/Ml Sdv 2 Ml) 4 mg IVP Q8H PRN PRN Reason: vomiting, or N/V if npo Oxycodone HCl (Oxycodone 5 Mg Ir Tab/Cap) 5 mg PO Q4H PRN PRN Reason: MODERATE PAIN Last Admin: 10/24/23 03:06 Dose: 5 mg Pantoprazole Sodium (Pantoprazole 40 Mg Sdv) 40 mg IVP Q12H [facility] Last Admin: 10/23/23 23:02 Dose: 40 mg Potassium Chloride (Potassium Chloride Er 20 Meq Tablet) 40 meq PO DAILY [facility] Last Admin: 10/23/23 12:28 Dose: 40 meq Rifaximin (Rifaximin 200 Mg Tablet) 600 mg PO BID [facility] Last Admin: 10/23/23 17:12 Dose: 600 mg Vitals/I&O/Wt Last Vital Signs Temp 98.3 F 10/24/23 07:28 Pulse 71 10/24/23 07:28 Resp 16 10/24/23 07:28 BP 107/68 10/24/23 07:28 Pulse Ox 97 10/24/23 07:28 O2 Del Method Room Air 10/24/23 07:28 O2 Flow Rate 2 10/22/23 12:30 10/23/23 10/24/23 10/24/23 22:59 06:59 14:59 Intake Total 1050 / 1950 50 / 2000 Output Total 650 / 650 100 / 750 Balance 400 / 1300 -50 / 1250 Weight last 48 hrs Weight 77.252 kg Weight 81.5 kg Weight 81.5 kg Physical Exam Narrative: Comfortable in bed no apparent distress. Vital signs noted. HEENT normocephalic/atraumatic. Neck is supple. Lungs dull bases. Heart regular Abdomen soft distended positive bowel sounds. Extremities no edema. Neuro awake alert oriented x 2 hospitals all extremities. Urinary Catheter Management: Osorio: Cath Placed During This Visit: yes Reason for Continuing Indwelling Catheter: Other Urinary Catheter Date of Insertion: 10/21/23 Urinary Catheter Time of Insertion: 10:00 Data 10/23/23 03:27 10/24/23 06:05 Micro: Microbiology 10/21/23 01:00 Gram Stain - Final Peritoneal Fluid Anaerobic Culture - Preliminary Body Fluid Culture - Preliminary A&P Assessment and plan (1) Acute kidney injury: 1. Acute kidney injury: Baseline creatinine was 0.9, patient's creatinine was 1.7. Etiology likely prerenal and post paracentesis renal dysfunction in the setting of decompensated liver cirrhosis and recent paracentesis. -Blood pressure is acceptable -Cr improved -c/w midodrine -If performed further paracentesis please give albumin with it. 2. Hyponatremia: Likely in the setting of liver cirrhosis. Has improved. 3. Decompensated liver cirrhosis 4. Sepsis in the setting of UTI, management per primary team Will see as needed. . Please call with any questions Plan Monitor electrolytes and creatinine. Attestations Medical Necessity Statement*: As per medicine Time Spent in Patient Care: 16 - 35 minutes (>than 50% of time spent in counselling and/or direct pt care on unit). Coding Level of Care Code Acute Code for [facility] Diagnoses Acute kidney injury N17.9
[2023-10-24] MEDS: calcium carb-vit d 600mg/400unit 1 Tablet 1 EACH PO ×2 (08:29→17:20)
[2023-10-24] MEDS: midodrine 5 mg TABLET PO ×3 (08:29→21:44)
[2023-10-24] MEDS: rifaximin 200 mg Tablet 600 MG PO ×2 (08:29→17:20)
[2023-10-24] MEDS: potassium chloride ER 20 mEq Tablet PO (08:30)
--- NOTE | 2023-10-24 09:21 | PC.PHAR ---
[facility] 10/24/23 9:20am-pt has current med list on his phone and has verified dosage increase on furosemide from 20mg to 40mg daily and spironolactone from 25mg to 50 mg daily. Due to bp issues, these are pending changes by .
--- NOTE | 2023-10-24 11:34 | P.PN_ITS ---
Subjective 2 Subjective: Initially we were planning to discharge the patient today then we heard back from [place] that they might have a potential blood by tomorrow Patient has waited so long and would like to wait 1 more day in order to get access to [facility] to get evaluated for liver transplant I did tell him that he will not be able to use Lasix at higher dose he may be only use Aldactone at this point no need of propranolol at discharge Vitals/I&O/Wt Last Vital Signs Temp 98.3 F 10/24/23 07:28 Pulse 102 H 10/24/23 09:20 Resp 18 10/24/23 09:40 BP 107/68 10/24/23 07:28 Pulse Ox 98 10/24/23 09:20 O2 Del Method Room Air 10/24/23 09:20 O2 Flow Rate 2 10/22/23 12:30 10/23/23 10/24/23 10/24/23 22:59 06:59 14:59 Intake Total 1050 / 1950 50 / 2000 240 / 240 Output Total 650 / 650 100 / 750 Balance 400 / 1300 -50 / 1250 240 / 240 Weight last 48 hrs Weight 77.252 kg Weight 81.5 kg Weight 81.5 kg Physical Exam 2 Narrative: Pleasant cooperative Hemodynamically stable currently on room air Abdomen soft Mildly distended No sign of asterixis No sign of confusion nonfocal neuroexam Sarcopenia S1, S2 Urinary Catheter Management: Osorio: Cath Placed During This Visit: yes Reason for Continuing Indwelling Catheter: Other Urinary Catheter Date of Insertion: 10/21/23 Urinary Catheter Time of Insertion: 10:00 Data 10/23/23 03:27 10/24/23 06:05 Micro: Microbiology 10/21/23 01:00 Gram Stain - Final Peritoneal Fluid Anaerobic Culture - Preliminary Body Fluid Culture - Final A&P Assessment and plan (1) Leukocytosis: (2) UTI (urinary tract infection): (3) Liver cirrhosis: Qualifiers: Ascites presence: with ascites Hepatic cirrhosis type: unspecified hepatic cirrhosis Qualified Code(s): K74.60 - Unspecified cirrhosis of liver; R18.8 - Other ascites (4) Acute kidney injury: (5) Hyponatremia: (6) Thrombocytopenia: (7) Hyperbilirubinemia: (8) Transaminitis: (9) Tobacco use disorder: (10) Septic shock: (11) SBP (spontaneous bacterial peritonitis): (12) Hepatorenal syndrome: Plan Decompensated liver cirrhosis Awaiting bed at [place] to be evaluated by planer tailer for liver transplant Third spacing continue cefepime, no need of albumin anymore LAQUITA: Creatinine improved No indication for dialysis Acute hypoxia requiring 2 L: Doing well on room air today Full code Low-sodium cardiac diet Chronic anemia: Hemoglobin stable Patient has history of of esophageal varices, hemoglobin has been stable Attestations 2 Medical Necessity Statement*: Continue medical management Diagnoses Leukocytosis D72.829 UTI (urinary tract infection) N39.0 Liver cirrhosis K74.60; R18.8 Ascites presence: with ascites Hepatic cirrhosis type: unspecified hepatic cirrhosis Acute kidney injury N17.9 Hyponatremia E87.1 Thrombocytopenia D69.6 Hyperbilirubinemia E80.6 Transaminitis R74.01 Tobacco use disorder F17.200 Septic shock A41.9; R65.21 SBP (spontaneous bacterial peritonitis) K65.2 Hepatorenal syndrome K76.7
[2023-10-24] MEDS: pantoprazole 40 mg SDV IVP (23:05)
[2023-10-25] VITALS (14 sets, daily range): BP systolic 95–124; BP diastolic 60–79; PULSE 73–92; RESP 16–20; TEMP 36.3–37.1; O2SAT 94–96
[2023-10-25] MEDS: cefepime 2,000 MG in sodium chloride 0.9% (plus) 50 ML 100 MG IV ×2 (03:07→14:33)
[2023-10-25 03:38] LABS: Alanine Aminotransferase 17 U/L (0-41); Albumin Level 3.1 g/dL (3.5-5.2); Alkaline Phosphatase 111 U/L (40-130); Anion Gap 12.9 (5-19); Aspartate Amino Transferase 37 U/L (0-40); Blood Urea Nitrogen 12 mg/dL (6-20); Carbon Dioxide 23 mmol/L (22-29); Chloride 104 mmol/L (98-107); Globulin 2.8 g/dL (1.3-4.6); Glomerular Filtration Rate 89.7 mL/min (90-130); Glucose 91 mg/dL (65-115); Magnesium 1.8 mg/dL (1.7-2.3); Osmolality Calculated 281 mOsm/kg (285-295); Potassium 3.9 mmol/L (3.5-5.1); Sodium 136 mmol/L (136-145); Total Bilirubin 3.5 mg/dL (0.15-1.2); Total Protein 5.9 g/dL (6.6-8.7)
[2023-10-25] MEDS: lactulose oral liq 20 gm/30 mL UDC PO ×2 (03:46→16:44)
[2023-10-25] MEDS: midodrine 5 mg TABLET PO ×3 (09:13→21:13)
[2023-10-25] MEDS: potassium chloride ER 20 mEq Tablet PO (09:13)
[2023-10-25] MEDS: rifaximin 200 mg Tablet 600 MG PO ×2 (09:13→18:16)
[2023-10-25] MEDS: calcium carb-vit d 600mg/400unit 1 Tablet 1 EACH PO ×2 (09:13→18:16)
[2023-10-25] MEDS: oxyCODONE 5 mg IR Tab/Cap PO ×4 (09:18→22:35)
--- NOTE | 2023-10-25 11:17 | P.PN_ITS ---
Subjective 2 Subjective: Patient thinks his abdomen is getting more bloated now Hemodynamically stable We did discuss the option of needing paracentesis every month Patient still want to wait for final call from [facility] Vitals/I&O/Wt Last Vital Signs Temp 98.6 F 10/25/23 08:00 Pulse 86 10/25/23 08:00 Resp 16 10/25/23 09:18 BP 109/79 10/25/23 08:00 Pulse Ox 95 10/25/23 08:00 O2 Del Method Room Air 10/25/23 08:00 O2 Flow Rate 2 10/22/23 12:30 10/24/23 10/25/23 10/25/23 22:59 06:59 14:59 Intake Total 290 / 1010 50 / 1060 360 / 360 Output Total 550 / 550 50 / 600 Balance -260 / 460 0 / 460 360 / 360 Weight last 48 hrs Weight 82.696 kg Weight 77.252 kg Physical Exam 2 Narrative: Mild scleral icterus No signs of asterixis Pleasant cooperative Nonfocal neuroexam S1, S2 Hemodynamic stable and currently on room air Osorio catheter with bile colored urine Urinary Catheter Management: Osorio: Cath Placed During This Visit: yes Reason for Continuing Indwelling Catheter: Acute Urinary Retention or Obstruction Urinary Catheter Date of Insertion: 10/21/23 Urinary Catheter Time of Insertion: 10:00 Data 10/23/23 03:27 10/25/23 03:00 Micro: Microbiology 10/21/23 01:00 Gram Stain - Final Peritoneal Fluid Anaerobic Culture - Preliminary Body Fluid Culture - Final A&P Assessment and plan (1) Thrombocytopenia: (2) Hyponatremia: (3) Hyperbilirubinemia: (4) Acute hepatic failure: (5) Liver cirrhosis: Qualifiers: Ascites presence: with ascites Hepatic cirrhosis type: unspecified hepatic cirrhosis Qualified Code(s): K74.60 - Unspecified cirrhosis of liver; R18.8 - Other ascites (6) SBP (spontaneous bacterial peritonitis): (7) Acute kidney injury: (8) Tobacco use disorder: Plan Continue antibiotics for SBP Hemodynamically stable bradycardic episodes resolved Continue midodrine at this point Patient might not tolerate propranolol, and Lasix Would only keep him on spironolactone low-dose Awaiting bed at [facility] Creatinine has improved no sign of hepatorenal syndrome Bilirubin trending down Full code Attestations 2 Medical Necessity Statement*: Awaiting bed at [facility] Diagnoses Thrombocytopenia D69.6 Hyponatremia E87.1 Hyperbilirubinemia E80.6 Acute hepatic failure K72.00 Liver cirrhosis K74.60; R18.8 Ascites presence: with ascites Hepatic cirrhosis type: unspecified hepatic cirrhosis SBP (spontaneous bacterial peritonitis) K65.2 Acute kidney injury N17.9 Tobacco use disorder F17.200
[2023-10-25] MEDS: pantoprazole 40 mg SDV IVP ×2 (13:07→22:35)
[2023-10-25] MEDS: spironolactone 25 mg Tablet 12.5 MG PO (13:07)
[2023-10-25] MEDS: albumin 12.5 GM/250 ML VIAL IV (20:17)
[2023-10-26] VITALS (13 sets, daily range): BP systolic 94–116; BP diastolic 57–75; PULSE 71–92; RESP 14–18; TEMP 36.6–37; O2SAT 94–98
[2023-10-26] MEDS: cefepime 2,000 MG in sodium chloride 0.9% (plus) 50 ML 100 MG IV ×2 (01:38→13:52)
[2023-10-26] MEDS: oxyCODONE 5 mg IR Tab/Cap PO ×5 (02:55→21:17)
[2023-10-26] MEDS: lactulose oral liq 20 gm/30 mL UDC PO ×2 (04:13→17:19)
[2023-10-26 05:05] LABS: Basophils # 0.1 10^3/uL (0.0-0.1); Basophils % 0.7 %; Eosinophils # 0.5 10^3/uL (0.0-0.8); Hematocrit 30.3 % (37-53); Lymphocytes # 1.1 10^3/uL (0.8-4.8); Lymphocytes % 16.4 %; Mean Corpuscular Hemoglobin 36.8 pg (27-33); Mean Corpuscular Volume 105.2 fl (82-101); Mean Platelet Volume 10.2 fL (7.4-10.4); Monocytes # 1.5 10^3/uL (0.2-0.9); Monocytes % 21.6 %; Neutrophils # 3.65 10^3/uL (1.8-7.7); Neutrophils % 52.9 %; Nucleated Red Blood Cells % 0 %; Platelet Count 100 10^3/cmm (157-399); Red Blood Count 2.88 10^6/uL (3.85-5.65); Red Cell Distribution Width 18.3 % (12.1-15.1)
[2023-10-26 05:16] LABS: INR 1.48 (0.8-1.2)
[2023-10-26 05:24] LABS: Alanine Aminotransferase 18 U/L (0-41); Albumin Level 3.6 g/dL (3.5-5.2); Alkaline Phosphatase 127 U/L (40-130); Aspartate Amino Transferase 41 U/L (0-40); Blood Urea Nitrogen 12 mg/dL (6-20); Calcium 8.4 mg/dL (8.5-10.5); Carbon Dioxide 21 mmol/L (22-29); Chloride 103 mmol/L (98-107); Creatinine Clr Calc Pharmacy 105.5858; Globulin 2.9 g/dL (1.3-4.6); Glomerular Filtration Rate 89.7 mL/min (90-130); Glucose 101 mg/dL (65-115); Magnesium 1.8 mg/dL (1.7-2.3); Osmolality Calculated 280 mOsm/kg (285-295); Phosphorus 2.8 mg/dL (2.5-4.5); Sodium 135 mmol/L (136-145); Total Bilirubin 3.9 mg/dL (0.15-1.2); Total Protein 6.5 g/dL (6.6-8.7)
[2023-10-26] MEDS: calcium carb-vit d 600mg/400unit 1 Tablet 1 EACH PO ×2 (09:02→17:19)
[2023-10-26] MEDS: rifaximin 200 mg Tablet 600 MG PO ×2 (09:02→18:02)
[2023-10-26] MEDS: spironolactone 25 mg Tablet 12.5 MG PO (09:02)
[2023-10-26] MEDS: potassium chloride ER 20 mEq Tablet PO (09:02)
[2023-10-26] MEDS: midodrine 5 mg TABLET PO ×3 (09:03→21:17)
[2023-10-26] MEDS: albumin 12.5 GM/250 ML VIAL IV (09:06)
[2023-10-26] MEDS: pantoprazole 40 mg SDV IVP ×2 (11:26→23:06)
--- NOTE | 2023-10-26 13:24 | PM.PN ---
Subjective Subjective: seen this morning Had a long discussion with the patient regarding his transfer to [place]. There is no bed available at [place] at this time. is concerned that his blood pressure will drop again after paracentesis today. Patient stating he would like to stay in the hospital till tomorrow and if there is still no bed available he would like to be discharged and would like to follow-up outpatient with them. Otherwise feels better however feels his abdomen is distended. Vitals/I&O/Wt Last Vital Signs Temp 98.6 F 10/26/23 12:00 Pulse 80 10/26/23 13:23 Resp 16 10/26/23 12:58 BP 100/67 10/26/23 12:00 Pulse Ox 97 10/26/23 12:00 O2 Del Method Room Air 10/26/23 12:00 O2 Flow Rate 2 10/22/23 12:30 10/25/23 10/26/23 10/26/23 22:59 06:59 14:59 Intake Total 1640 / 2480 630 / 3110 610 / 610 Output Total 550 / 550 100 / 650 Balance 1090 / 1930 530 / 2460 610 / 610 Weight last 48 hrs Weight 85.366 kg Weight 82.696 kg Physical Exam Narrative: Mild scleral icterus No signs of asterixis Pleasant cooperative Nonfocal neuroexam Abdomen soft and slightly distended, ascites present. Nontender overall. S1, S2 Hemodynamic stable and currently on room air Urinary Catheter Management: Osorio: Cath Placed During This Visit: yes Reason for Continuing Indwelling Catheter: Acute Urinary Retention or Obstruction Urinary Catheter Date of Insertion: 10/21/23 Urinary Catheter Time of Insertion: 10:00 Data 10/26/23 04:55 10/26/23 04:55 Micro: Microbiology 10/20/23 21:30 Blood Culture - Final Blood NO GROWTH AFTER 5 DAYS 10/20/23 21:38 Blood Culture - Final Blood NO GROWTH AFTER 5 DAYS 10/21/23 01:00 Gram Stain - Final Peritoneal Fluid Anaerobic Culture - Preliminary Body Fluid Culture - Final A&P Assessment and plan (1) Thrombocytopenia: (2) Hyponatremia: (3) Hyperbilirubinemia: (4) Acute hepatic failure: (5) Liver cirrhosis: Qualifiers: Ascites presence: with ascites Hepatic cirrhosis type: unspecified hepatic cirrhosis Qualified Code(s): K74.60 - Unspecified cirrhosis of liver; R18.8 - Other ascites (6) SBP (spontaneous bacterial peritonitis): (7) Acute kidney injury: (8) Tobacco use disorder: Plan Continue antibiotics for SBP Hemodynamically stable bradycardic episodes resolved Continue midodrine at this point Patient might not tolerate propranolol, and Lasix Would only keep him on spironolactone low-dose Awaiting bed at [facility] Creatinine has improved no sign of hepatorenal syndrome Bilirubin trending down Full code 10/25 ? Awaiting transfer to [facility] ? Paracentesis today. ? Will administer albumin if needed. ? Nephrology is following ? Hemoglobin 710.6. Creatinine 0.9. INR 1.48, sodium 135. Overall patient is stable. ? Plan to transfer to [place] for further evaluation. Possibly discharge in a.m. to home with cefpodoxime x 7 days for completing treatment of SBP. However we will decide on this tomorrow after assessment. Attestations Medical Necessity Statement*: Paracentesis today. Diagnoses Thrombocytopenia D69.6 Hyponatremia E87.1 Hyperbilirubinemia E80.6 Acute hepatic failure K72.00 Liver cirrhosis K74.60; R18.8 Ascites presence: with ascites Hepatic cirrhosis type: unspecified hepatic cirrhosis SBP (spontaneous bacterial peritonitis) K65.2 Acute kidney injury N17.9 Tobacco use disorder F17.200
--- NOTE | 2023-10-26 16:08 | PC.NURSE ---
Removed 5L of fluid during paracentesis. Patient tolerated well. BP 100/66.
--- NOTE | 2023-10-26 18:39 | PC.NURSE ---
Patient made 225ml of urine output today, Dr. Avelar notified.
--- NOTE | 2023-10-26 19:50 | US_ITS ---
WS: [id number] ULTRASOUND-GUIDED PARACENTESIS CLINICAL INFORMATION: therapeutic paracentesis COMPARISON: None. Procedure Informed consent: The risks, benefits, and alternatives of the procedure were discussed with the avi ent. Verbal and written consent was obtained. Timeout: A timeout was performed to confirm the correct patient, procedure, and site. Preparation: A suitable skin site was identified. The patient was prepped and draped in usual sterile fashion. Lidocaine 1% was used for local anesthesia. Catheter: 4 Slovenian One-step Yueh catheter. Side: RIGHT lower quadrant. Fluid Volume: 5000 ml Color: Clear yellow DISPOSITION: Discarded safely. Complications: None. US/US paracentesis abd w [id number] IMPRESSION: Uncomplicated ultrasound-guided paracentesis. Removal of 5000 cc
[2023-10-27] VITALS (12 sets, daily range): BP systolic 93–106; BP diastolic 54–66; PULSE 67–91; RESP 15–18; TEMP 36.6–37.1; O2SAT 95–99
[2023-10-27] MEDS: cefepime 2,000 MG in sodium chloride 0.9% (plus) 50 ML 100 MG IV ×2 (02:08→15:17)
[2023-10-27] MEDS: oxyCODONE 5 mg IR Tab/Cap PO ×5 (02:09→20:54)
[2023-10-27] MEDS: lactulose oral liq 20 gm/30 mL UDC PO ×2 (03:55→15:17)
[2023-10-27 06:57] LABS: Alanine Aminotransferase 16 U/L (0-41); Albumin Level 3.2 g/dL (3.5-5.2); Alkaline Phosphatase 113 U/L (40-130); Anion Gap 13.2 (5-19); Aspartate Amino Transferase 40 U/L (0-40); Blood Urea Nitrogen 11 mg/dL (6-20); Calcium 8.1 mg/dL (8.5-10.5); Carbon Dioxide 21 mmol/L (22-29); Chloride 106 mmol/L (98-107); Creatinine Clr Calc Pharmacy 115.9176; Globulin 2.6 g/dL (1.3-4.6); Glomerular Filtration Rate 102.7 mL/min (90-130); Glucose 104 mg/dL (65-115); Magnesium 1.7 mg/dL (1.7-2.3); Osmolality Calculated 282 mOsm/kg (285-295); Phosphorus 2.5 mg/dL (2.5-4.5); Potassium 4.2 mmol/L (3.5-5.1); Sodium 136 mmol/L (136-145); Total Bilirubin 2.9 mg/dL (0.15-1.2); Total Protein 5.8 g/dL (6.6-8.7)
[2023-10-27] MEDS: calcium carb-vit d 600mg/400unit 1 Tablet 1 EACH PO ×2 (09:02→16:46)
[2023-10-27] MEDS: midodrine 5 mg TABLET PO ×3 (09:02→20:49)
[2023-10-27] MEDS: spironolactone 25 mg Tablet 12.5 MG PO (09:02)
[2023-10-27] MEDS: potassium chloride ER 20 mEq Tablet PO (09:03)
[2023-10-27] MEDS: rifaximin 200 mg Tablet 600 MG PO ×2 (09:11→16:46)
[2023-10-27] MEDS: pantoprazole 40 mg SDV IVP ×2 (10:44→22:46)
--- NOTE | 2023-10-27 17:42 | PC.NURSE ---
IJ removed per physician orders. Tolerated well.
--- NOTE | 2023-10-27 18:05 | P.PN_ITS ---
Subjective 2 Subjective: Patient endorses generalized malaise and fatigue. He has some abdominal discomfort but notes that it has improved since his paracentesis. His partner is bedside and very supportive. They report last paracentesis about 2 weeks ago. Medications: Reviewed: Yes Vitals/I&O/Wt Last Vital Signs Temp 98.2 F 10/27/23 15:36 Pulse 77 10/27/23 15:36 Resp 16 10/27/23 15:36 BP 101/64 10/27/23 15:36 Pulse Ox 97 10/27/23 15:36 O2 Del Method Room Air 10/27/23 15:36 O2 Flow Rate 2 10/22/23 12:30 10/27/23 10/27/23 10/27/23 06:59 14:59 22:59 Intake Total 200 / 1300 480 / 480 50 / 530 Output Total 150 / 475 200 / 200 Balance 50 / 825 480 / 480 -150 / 330 Weight last 48 hrs Weight 80.83 kg Weight 85.366 kg Physical Exam 2 Narrative: General: Patient is awake. Head: Normocephalic. Atraumatic. EOM intact. Temporal wasting. Neck: No JVD. Central line. Cardiovascular: RRR. No gallops. No murmurs. Lungs: Clear to auscultation, no use of accessory muscles, no crackles or wheezes. Skin: Slight jaundice. No rashes. Abdomen: Abdomen is slightly distended but soft. Prior paracentesis site covered with bandage. Active bowel sounds. Genito Urinary: Osorio catheter. Rectal: Rectal exam not performed since no symptoms indicated blood loss. Extremities: No cyanosis or clubbing. Musculoskeletal: No erythematous joints. Neurological: Moves all 4 extremities. No myoclonus. Urinary Catheter Management: Osorio: Cath Placed During This Visit: yes Reason for Continuing Indwelling Catheter: Accurate Measurement of Urinary Output in Critically Ill Patients Urinary Catheter Date of Insertion: 10/21/23 Urinary Catheter Time of Insertion: 10:00 Data 10/26/23 04:55 10/27/23 06:31 Micro: Microbiology 10/21/23 01:00 Gram Stain - Final Peritoneal Fluid Anaerobic Culture - Preliminary Body Fluid Culture - Final A&P Assessment and plan (1) SBP (spontaneous bacterial peritonitis): Follow-up peritoneal culture Continue antibiotics (2) Liver cirrhosis: Decompensated liver cirrhosis with ascites Status post paracentesis on 10/25 Patient follows with GI in [place] He would benefit from hepatology evaluation Transfer to [facility] when bed becomes available Qualifiers: Ascites presence: with ascites Hepatic cirrhosis type: unspecified hepatic cirrhosis Qualified Code(s): K74.60 - Unspecified cirrhosis of liver; R18.8 - Other ascites (3) Transaminitis: Avoid hepatotoxins Trend CMP (4) Hyperbilirubinemia: Avoid hepatotoxins Trend CMP (5) Hyponatremia: Hyponatremia has resolved Monitor sodium levels (6) Thrombocytopenia: Thrombocytopenia secondary to liver cirrhosis Monitor platelet counts Plan Acute kidney injury with hepatorenal physiology, resolved Metabolic acidosis, mild Attestations 2 Medical Necessity Statement*: Patient requires ongoing hospitalization transfer text for IV antibiotics, serial labs, and supportive care. Coding Level of Care Code Acute Code for [facility] Diagnoses SBP (spontaneous bacterial peritonitis) K65.2 Liver cirrhosis K74.60; R18.8 Ascites presence: with ascites Hepatic cirrhosis type: unspecified hepatic cirrhosis Transaminitis R74.01 Hyperbilirubinemia E80.6 Hyponatremia E87.1 Thrombocytopenia D69.6
[2023-10-28] VITALS (9 sets, daily range): BP systolic 98–111; BP diastolic 60–71; PULSE 68–79; RESP 14–18; TEMP 36.6–36.8; O2SAT 92–98
[2023-10-28] MEDS: cefepime 2,000 MG in sodium chloride 0.9% (plus) 50 ML 100 MG IV (01:58)
[2023-10-28] MEDS: oxyCODONE 5 mg IR Tab/Cap PO ×3 (01:59→13:05)
[2023-10-28] MEDS: lactulose oral liq 20 gm/30 mL UDC PO (03:33)
[2023-10-28 04:01] LABS: Basophils # 0.1 10^3/uL (0.0-0.1); Basophils % 1.1 %; Eosinophils # 0.4 10^3/uL (0.0-0.8); Eosinophils % 7.6 %; Hematocrit 27.5 % (37-53); Lymphocytes # 0.7 10^3/uL (0.8-4.8); Lymphocytes % 12.8 %; Mean Corpuscular HGB Conc 35.6 g/dL (30-55); Mean Corpuscular Hemoglobin 37.7 pg (27-33); Mean Corpuscular Volume 105.8 fl (82-101); Mean Platelet Volume 11.1 fL (7.4-10.4); Monocytes # 1.2 10^3/uL (0.2-0.9); Monocytes % 21.3 %; Neutrophils # 3.19 10^3/uL (1.8-7.7); Nucleated Red Blood Cells % 0 %; Platelet Count 81 10^3/cmm (157-399); Red Cell Distribution Width 18.8 % (12.1-15.1); White Blood Count 5.69 10^3/uL (3.29-11.43)
[2023-10-28 04:44] LABS: Alanine Aminotransferase 18 U/L (0-41); Albumin Level 3.1 g/dL (3.5-5.2); Alkaline Phosphatase 104 U/L (40-130); Blood Urea Nitrogen 10 mg/dL (6-20); Calcium 8.5 mg/dL (8.5-10.5); Carbon Dioxide 24 mmol/L (22-29); Chloride 108 mmol/L (98-107); Creatinine Clr Calc Pharmacy 103.0378; Globulin 2.5 g/dL (1.3-4.6); Glomerular Filtration Rate 89.7 mL/min (90-130); Glucose 90 mg/dL (65-115); Magnesium 1.7 mg/dL (1.7-2.3); Osmolality Calculated 289 mOsm/kg (285-295); Phosphorus 2.9 mg/dL (2.5-4.5); Sodium 140 mmol/L (136-145); Total Bilirubin 2.8 mg/dL (0.15-1.2); Total Protein 5.6 g/dL (6.6-8.7)
[2023-10-28 04:47] LABS: Anion Gap 12.9 (5-19); Aspartate Amino Transferase 47 U/L (0-40); Potassium 4.9 mmol/L (3.5-5.1)
[2023-10-28] MEDS: ondansetron 2 mg/ML SDV 2 mL 4 MG IVP (06:19)
[2023-10-28] MEDS: midodrine 5 mg TABLET PO (08:06)
[2023-10-28] MEDS: calcium carb-vit d 600mg/400unit 1 Tablet 1 EACH PO (08:06)
[2023-10-28] MEDS: potassium chloride ER 20 mEq Tablet PO (08:06)
[2023-10-28] MEDS: rifaximin 200 mg Tablet 600 MG PO (08:06)
[2023-10-28] MEDS: spironolactone 25 mg Tablet 12.5 MG PO (08:06)
--- NOTE | 2023-10-28 10:13 | PC.NURSE ---
This RN receives a call from Nieves from [facility]. Pt has a bed on [id number] bed 2. Phone number given for report [phone]. Dr. Mcginnis notified.
--- NOTE | 2023-10-28 10:37 | PC.NURSE ---
Report called to Nath[facility] in [place]. All questions answered at this time.
--- NOTE | 2023-10-28 10:49 | PM.DCS ---
Discharge Providers Date of Admission: 10/21/23 00:06 Date of Discharge: October 28, 2023 Attending Provider at Admission: Jamir Mcginnis MD Attending Provider at Discharge: Jamir Mcginnis MD Consults: Nephrology Diagnoses at Discharge Discharge Diagnosis (1) SBP (spontaneous bacterial peritonitis): Status: Acute (2) Liver cirrhosis: Status: Acute Qualifiers: Ascites presence: with ascites Hepatic cirrhosis type: unspecified hepatic cirrhosis Qualified Code(s): K74.60 - Unspecified cirrhosis of liver; R18.8 - Other ascites (3) Transaminitis: Status: Acute (4) Hyperbilirubinemia: Status: Acute (5) Hyponatremia: Status: Acute (6) Thrombocytopenia: Status: Acute Reason for Visit Reason for Visit: abd pain Physical Exam Narrative: General: Patient is awake. In bed. Head: Normocephalic. Atraumatic. EOM intact. Temporal wasting. Neck: No JVD. Cardiovascular: RRR. No gallops. No murmurs. Lungs: Clear to auscultation, no use of accessory muscles, no crackles or wheezes. Skin: Slight jaundice. No rashes. Abdomen: Abdomen is slightly distended. Active bowel sounds. Extremities: No cyanosis or clubbing. Musculoskeletal: No erythematous joints. Neurological: Moves all 4 extremities. Urinary Catheter Management: Osorio: Cath Placed During This Visit: yes Reason for Continuing Indwelling Catheter: Accurate Measurement of Urinary Output in Critically Ill Patients Urinary Catheter Date of Insertion: 10/21/23 Urinary Catheter Time of Insertion: 10:00 Discharge Data Studies Completed and Pending Completed Studies During Hospitalization Category Date Time Status CT abdomen pelvis w con* [id number] Urgent Cat Scan 10/20/23 21:08 Completed XR chest 1V portable [id number] Stat Exams 10/20/23 23:36 Completed Cytology [PTH] Routine Pth 10/21/23 01:22 Completed CV. echo complete* [id number] Routine Ultrasound 10/21/23 08:34 Completed US liver [id number] Routine Ultrasound 10/21/23 08:31 Completed Pending at discharge Category Date Time Status Anaerobic Culture Routine Lab 10/21/23 01:00 Results Body Fluid Culture & GS Routine Lab 10/21/23 01:00 Results [place] paracentesis abd w [id number] Routine Ultrasound 10/26/23 19:50 Taken Radiology Impressions Abdomen/Pelvis CT 10/20/23 21:08 IMPRESSION: 1. Hepatic cirrhosis with evidence of portal hypertension including ascites, mesenteric edema, splenomegaly, portosystemic collaterals, nonspecific gallbladder wall thickening. Areas of decreased attenuation in the hepatic parenchyma are nonspecific and masses are not excluded on single phase imaging. 2. Diffuse gastric wall thickening, areas of small bowel wall thickening, and colonic wall thickening all likely related to portal hypertension, worsened compared to prior. Chest X-Ray 10/20/23 23:36 IMPRESSION: New right internal jugular venous catheter terminating deep in the right atrium. Liver Ultrasound 10/21/23 08:31 IMPRESSION: Marked ascites with hepatic cirrhosis. Inhomogeneous liver without discrete mass. MRI recommended for further assessment of abnormality seen on prior CT given higher sensitivity and specificity for pathology in the setting of cirrhosis. Laboratory Results WBC 5.69 10^3/uL (3.29-11.43) 10/28/23 03:33 RBC 2.60 10^6/uL (3.85-5.65) L 10/28/23 03:33 Hgb 9.80 g/dL (11.27-16.99) L 10/28/23 03:33 Hct 27.5 % (37-53) L 10/28/23 03:33 MCV 105.8 fl (82-101) H 10/28/23 03:33 MCH 37.7 pg (27-33) H 10/28/23 03:33 MCHC 35.6 g/dL (30-55) 10/28/23 03:33 RDW 18.8 % (12.1-15.1) H 10/28/23 03:33 Plt Count 81 10^3/cmm (157-399) L 10/28/23 03:33 MPV 11.1 fL (7.4-10.4) H 10/28/23 03:33 Neut % (Auto) 56.0 % 10/28/23 03:33 Lymph % (Auto) 12.8 % 10/28/23 03:33 [place] % (Auto) 21.3 % 10/28/23 03:33 Eos % (Auto) 7.6 % 10/28/23 03:33 Baso % (Auto) 1.1 % 10/28/23 03:33 Neut # (Auto) 3.19 10^3/uL (1.8-7.7) 10/28/23 03:33 Lymph # (Auto) 0.7 10^3/uL (0.8-4.8) L 10/28/23 03:33 [place] # (Auto) 1.2 10^3/uL (0.2-0.9) H 10/28/23 03:33 Eos # (Auto) 0.4 10^3/uL (0.0-0.8) 10/28/23 03:33 Baso # (Auto) 0.1 10^3/uL (0.0-0.1) 10/28/23 03:33 Nucleated RBC % (auto) 0 % 10/28/23 03:33 Nucleated RBCs # 0.0 /100WBC 10/28/23 03:33 Differential Comment Yes 10/21/23 01:00 ESR 9 mm/hr (0-10) 10/20/23 21:38 PT 18.40 SECONDS (12.1-14.9) H 10/26/23 04:55 INR 1.48 (0.8-1.2) H 10/26/23 04:55 Sodium 140 mmol/L (136-145) 10/28/23 03:33 Potassium 4.9 mmol/L (3.5-5.1) 10/28/23 03:33 Chloride 108 mmol/L (98-107) H 10/28/23 03:33 Carbon Dioxide 24 mmol/L (22-29) 10/28/23 03:33 Anion Gap 12.9 (5-19) 10/28/23 03:33 BUN 10 mg/dL (6-20) 10/28/23 03:33 Creatinine 0.9 mg/dL (0.7-1.2) 10/28/23 03:33 GFR Calculation 89.7 mL/min (90-130) L 10/28/23 03:33 Glucose 90 mg/dL (65-115) 10/28/23 03:33 Calculated Osmolality 289 mOsm/kg (285-295) 10/28/23 03:33 Lactic Acid 2.2 mmol/L (0.5-2.2) 10/21/23 14:29 Lactic Acid (Sepsis) 1.5 mmol/L (0.5-2.2) 10/21/23 16:55 Lactate 1.7 mmol/L (0.5-2.2) 10/22/23 04:19 Calcium 8.5 mg/dL (8.5-10.5) 10/28/23 03:33 Phosphorus 2.9 mg/dL (2.5-4.5) 10/28/23 03:33 Magnesium 1.7 mg/dL (1.7-2.3) 10/28/23 03:33 Total Bilirubin 2.8 mg/dL (0.15-1.2) H 10/28/23 03:33 AST 47 U/L (0-40) H 10/28/23 03:33 ALT 18 U/L (0-41) 10/28/23 03:33 Alkaline Phosphatase 104 U/L (40-130) 10/28/23 03:33 Ammonia 65 umol/L (16-60) H 10/22/23 04:19 Troponin T Baseline 10 ng/L (0-15) 10/21/23 08:45 Troponin T 120 Minute 9.51 ng/L (0-15) 10/21/23 10:55 Delta Troponin T -0.49 ABS# (0-10) L 10/21/23 10:55 Troponin T Hi Sens 6Hr 8.17 ng/L (0-15) 10/21/23 14:29 Troponin T Hi Sens 6Hr Delta -1.83 ng/L (0-12) L 10/21/23 14:29 C-Reactive Protein 95.6 mg/L (0.0-4.9) H 10/22/23 04:19 NT-Pro-B Natriuret Pep 1114 pg/mL (0-125) H 10/22/23 04:19 Total Protein 5.6 g/dL (6.6-8.7) L 10/28/23 03:33 Albumin 3.1 g/dL (3.5-5.2) L 10/28/23 03:33 Globulin 2.5 g/dL (1.3-4.6) 10/28/23 03:33 Lipase 27 U/L (13-60) 10/20/23 21:38 Vitamin B12 1787 pg/mL (232-1245) H 10/21/23 08:45 Folate 6.1 ng/mL (4.5-32.2) 10/21/23 08:45 Procalcitonin 7.86 ng/mL (0-0.5) H 10/22/23 04:19 Urine Color Edgar (Yellow) A 10/20/23 22:40 Urine Appearance Cloudy (CLEAR) A 10/20/23 22:40 Urine pH 5.0 (5-7) 10/20/23 22:40 Ur Specific [place] 1.020 (1.005-1.030) 10/20/23 22:40 Urine Protein Trace (Negative) A 10/20/23 22:40 Urine Glucose (UA) Negative (Normal) 10/20/23 22:40 Urine Ketones Negative (Negative) 10/20/23 22:40 Urine Blood Negative (Negative) 10/20/23 22:40 Urine Nitrate Positive (Negative) A 10/20/23 22:40 Urine Bilirubin 2+ (Negative) H 10/20/23 22:40 Urine Urobilinogen 1.0 mg/dL (Negative) 10/20/23 22:40 Ur Leukocyte Esterase 1+ (Negative) A 10/20/23 22:40 Urine RBC 5-10 /hpf (0-2) H 10/20/23 22:40 Urine WBC 5-10 /hpf (0-5) H 10/20/23 22:40 Ur Squamous Epith Cells 0-4 /hpf (0-5) H 10/20/23 22:40 Calcium Oxalate Crystal 0-4 /hpf H 10/20/23 22:40 Amorphous Sediment Not Reportable 10/20/23 22:40 Urine Bacteria 3+ /hpf (NONE) H 10/20/23 22:40 Hyaline Casts 15-25 /lpf H 10/20/23 22:40 Coarse Granular Casts 0-4 /lpf H 10/20/23 22:40 Fluid Color Yellow 10/21/23 01:00 Fluid Appearance Cloudy 10/21/23 01:00 Fluid WBC 4147 /uL 10/21/23 01:00 Fluid RBC 1.000 10^3/uL 10/21/23 01:00 Fld Polynuclear WBCs # 3.484 10/21/23 01:00 Fld Polynuclear WBCs % 84.000 % 10/21/23 01:00 Fl Mononucl WBCs #(Auto) 0.663 10/21/23 01:00 Fl Mononuclear % Auto 16.000 % 10/21/23 01:00 Fld Crystal Laterality Right lower 10/21/23 01:00 Fluid Glucose 105.0 mg/dL 10/21/23 01:00 Fluid Total Protein 0.7 g/dL 10/21/23 01:00 Fluid Albumin 0.5 g/dL 10/21/23 01:00 Urine Opiates Screen Positive ng/mL (Negative) H 10/21/23 10:25 Ur Barbiturates Screen Negative ng/mL (Negative) 10/21/23 10:25 Ur Phencyclidine Scrn Negative ng/mL (Negative) 10/21/23 10:25 Ur Amphetamines Screen Negative ng/mL (Negative) 10/21/23 10:25 U Benzodiazepines Scrn Negative ng/mL (Negative) 10/21/23 10:25 Urine Cocaine Screen Negative ng/mL (Negative) 10/21/23 10:25 U Marijuana (THC) Screen Negative ng/mL (Negative) 10/21/23 10:25 Ethyl Alcohol < 10 mg/dL (0-10) 10/21/23 08:45 MRSA (PCR) Not detected (NOT DETECTED) 10/21/23 00:30 Vitals Last Vital Signs Temp 98.2 F 10/28/23 07:41 Pulse 68 10/28/23 07:41 Resp 17 10/28/23 08:06 BP 99/63 10/28/23 07:41 Pulse Ox 96 10/28/23 07:41 O2 Del Method Room Air 10/28/23 07:41 O2 Flow Rate 2 10/22/23 12:30 Discharge Plan Discharge Patient Disposition: Xfer Short-Term Hosp Condition: Stable Prescriptions: No Action furosemide 40 mg Tablet 40 mg PO DAILY spironolactone 25 mg Tablet 50 mg PO DAILY nadolol 20 mg tablet 20 mg PO DAILY pantoprazole 40 mg tablet,delayed release (DR/EC) 40 mg PO DAILY allopurinol 300 mg Tablet 300 mg PO DAILY ondansetron HCl 4 mg tablet 4 mg PO Q8H Qty: 30 0RF Discharge Orders: Discharge Order (Routine); Ordered 10/28/23 Ordered By: Jamir Mcginnis Discharge Diet: Low Salt Discharge Activity: Resume usual activity Patient Instructions: Opioid Safety Activity Restrictions/Additional Instructions: Patient transferred to [facility] for hepatology evaluation. Defer discharge instructions to accepting medical team at [facility]. Discharge Attestations Time Spent in Discharge Care*: greater than 30 min Quality Metrics Clinical Quality Measures [ No reported AMI, CVA or VTE this stay] Coding Level of Care Code Acute Code for Chg Fwd Diagnoses SBP (spontaneous bacterial peritonitis) K65.2 Liver cirrhosis K74.60; R18.8 Ascites presence: with ascites Hepatic cirrhosis type: unspecified hepatic cirrhosis Transaminitis R74.01 Hyperbilirubinemia E80.6 Hyponatremia E87.1 Thrombocytopenia D69.6
--- NOTE | 2023-10-28 13:10 | PC.NURSE ---
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 Pt stable. Leaves at 1315.
== END 2023-10-28 13:15 | disposition short-term general hospital (02) | DRG 871 ==
LOC: ER 21:11 → ICU 10-21 00:34 → MEDSURG 10-23 15:47
PROVIDERS: Family Medicine; Internal Medicine; Internal Medicine Nephrology; Admitting Provider Internal Medicine; Emergency Provider Physician Assistant; Visit Provider Internal Medicine
DX: A41.9 Sepsis, unspecified organism (principal); K65.2 Spontaneous bacterial peritonitis; R65.21 Severe sepsis with septic shock; K76.7 Hepatorenal syndrome; N17.9 Acute kidney failure, unspecified; N39.0 Urinary tract infection, site not specified; E87.1 Hypo-osmolality and hyponatremia; I85.00 Esophageal varices without bleeding; K70.31 Alcoholic cirrhosis of liver with ascites; F10.21 Alcohol dependence, in remission; R16.1 Splenomegaly, not elsewhere classified; F17.210 Nicotine dependence, cigarettes, uncomplicated; I49.8 Other specified cardiac arrhythmias; R09.02 Hypoxemia
CPT/HCPCS: 36415; 36592; 49083; 51702; 71045; 74177; 76705; 80048; 80053; 80306; 80307; 80503; 81003; 81015; 82042; 82140; 82607; 82746; 82945; 83605; 83690; 83735; 83880; 84100; 84145; 84157; 84484; 85025; 85610; 85651; 86140; 87040; 87070; 87075; 87086; 87205; 87641; 88112; 88305; 89050; 93005; 93306; 96365; 96367; 96374; 96375; 96376; 99291; C1751; J0692; J1170; J2405; J2470; J2543; J3370; J7030; J7050; P9045; P9046; Q3014

== ENCOUNTER 2023-11-10 20:41 | Emergency (ER) | payer OTHER, SELFPAY ==
[2023-11-10 20:47] VITALS: BP 97/64; PULSE 73; RESP 16; TEMP 36.8; O2SAT 98
[2023-11-10 21:11] LABS: Basophils % 0.5 %; Eosinophils # 0.3 10^3/uL (0.0-0.8); Eosinophils % 4.2 %; Hematocrit 29.9 % (37-53); Mean Corpuscular HGB Conc 34.8 g/dL (30-55); Mean Corpuscular Hemoglobin 37.8 pg (27-33); Mean Corpuscular Volume 108.7 fl (82-101); Mean Platelet Volume 10.8 fL (7.4-10.4); Monocytes # 1.4 10^3/uL (0.2-0.9); Neutrophils # 4.61 10^3/uL (1.8-7.7); Nucleated Red Blood Cells % 0 %; Platelet Count 149 10^3/cmm (157-399); Red Blood Count 2.75 10^6/uL (3.85-5.65); Red Cell Distribution Width 17.5 % (12.1-15.1); White Blood Count 7.32 10^3/uL (3.29-11.43)
[2023-11-10 21:26] LABS: Alanine Aminotransferase 23 U/L (0-41); Albumin Level 3.5 g/dL (3.5-5.2); Alkaline Phosphatase 140 U/L (40-130); Aspartate Amino Transferase 43 U/L (0-40); Blood Urea Nitrogen 10 mg/dL (6-20); Calcium 8.3 mg/dL (8.5-10.5); Carbon Dioxide 26 mmol/L (22-29); Chloride 100 mmol/L (98-107); Globulin 3.2 g/dL (1.3-4.6); Glomerular Filtration Rate 53.9 mL/min (90-130); Glucose 82 mg/dL (65-115); Lipase 41 U/L (13-60); Osmolality Calculated 280 mOsm/kg (285-295); Sodium 136 mmol/L (136-145); Total Bilirubin 2.2 mg/dL (0.15-1.2); Total Protein 6.7 g/dL (6.6-8.7)
[2023-11-10 21:29] LABS: Creatinine Clr Calc Pharmacy 64.0766
--- NOTE | 2023-11-10 22:02 | ED_ITS ---
HPI - Abdominal Pain 2 General: Chief Complaint: Abdominal Pain Stated Complaint: lower abd pain Time Seen by Provider: 11/10/23 20:42 Source: patient Mode of arrival: ambulatory Limitations: no limitations History of Present Illness: 48-year-old male with a history of cirrh osis he been admitted to [facility] for SBP he was discharged last week. He states that he has been having some increased pain with chills. Patient is afebrile here denies any vomiting denies any diarrhea. Denies any worsening factors Associated Symptoms: Reports chills; Denies diarrhea, fever(s), nausea and vomiting Related Data Home Medications Medication Instructions Recorded Confirmed allopurinol 300 mg tablet 300 mg PO DAILY 06/29/23 10/24/23 nadolol 20 mg tablet 20 mg PO DAILY 06/29/23 10/24/23 pantoprazole 40 mg tablet,delayed 40 mg PO DAILY 06/29/23 10/24/23 release spironolactone 25 mg tablet 50 mg PO DAILY 06/29/23 10/21/23 furosemide 40 mg tablet 40 mg PO DAILY 10/21/23 10/24/23 Previous Rx's Medication Instructions Recorded ondansetron HCl 4 mg tablet 4 mg PO Q8H #30 tabs 06/29/23 hydrocodone 5 mg-acetaminophen 325 1 tab PO Q6H PRN pain #14 tabs 11/10/23 mg tablet Allergies Allergy/AdvReac Type Severity Reaction Status Date / Time No Known Allergies Allergy Verified 11/10/23 20:52 Review of Systems 2 Const: Reports: chills; Denies: fever(s), body aches or change in appetite ENMT: Denies: throat pain or dental pain Card: Denies: chest pain Resp: Denies: dyspnea GI: Reports: abdominal pain; Denies: nausea, vomiting or diarrhea Musc: Denies: neck pain or back pain Skin/Breast: Denies: rash Neuro: Denies: headache(s) PFSH ED 2 PFSH: Medical History Acute hepatic failure Abdominal ascites Smoker Colitis Low oxygen saturation Enteropathy Smoking addiction Alcohol use disorder Thrombocytopenia Liver cirrhosis Hematuria Ascites due to alcoholic cirrhosis Abdominal pain 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 History of colon polyps Rectal polyp 10 and 15 cm, cecum biopsy Sigmoid colon polyp Seasonal allergies Splenomegaly Enterocolitis 2017 Surgical History Status post colonoscopy with polypectomy H/O esophagogastroduodenoscopy Vasectomy status H/O left inguinal hernia repair Family History Denies family history of Cancer Social History Smoking and tobacco/nicotine status: current every day tobacco/nicotine user cigarettes [ Other cigarette details: At least 39-bddy-cggh history, currently cutting down to several cigarettes] Alcohol intake: current Substance/Drug Use: never Lives independently: Yes Housing: House Marital status: Physical Exam 2 Const: COMMON NORMALS: patient oriented x3 HENMT: COMMON NORMALS: normocephalic and atraumatic HEAD & SCALP: n ormocephalic and atraumatic Neck/C-Spine: COMMON NORMALS: full ROM and supple Chest: COMMONS NORMALS: normal inspection of the chest and normal palpation of entire chest wall Resp: COMMON NORMALS: normal respiratory effort, No retractions, No use of accessory muscles and clear to auscultation bilaterally AUSCULTATION: clear to auscultation bilaterally Cardio: COMMON NORMALS: regular rate, regular rhythm and No murmurs present (Cardio) RATE: regular rate RHYTHM: regular rhythm GI: COMMON NORMALS: Normal to inspection, nondistended, normoactive bowel sounds present, Soft to palpation, non-tender and no masses PALPATION: Yes Soft to palpation Extremity: COMMON NORMALS: normal to inspection and full ROM Neuro: COMMON NORMALS: patient oriented x3, moves all extremities and no focal motor deficits Psych: COMMON NORMALS: mental status grossly normal, Normal thought process present and cooperative THOUGHT PROCESS: Normal thought process present Skin: COMMON NORMALS: no rashes or lesions noted and no wounds GENERAL SKIN EXAM: no rashes or lesions noted Course 2 Vital Signs: Vital signs: Vital Signs Temperature 98.2 F 11/10/23 20:47 Pulse Rate 72 11/11/23 00:02 Respiratory Rate 16 11/11/23 00:00 Blood Pressure 93/52 11/11/23 00:02 Pulse Oximetry 94 11/11/23 00:02 Oxygen Delivery Me thod Room Air 11/11/23 00:00 MDM - Abdominal Pain Medical Decision Making Patient presents here with abdominal pain has a history of cirrhosis he is afebrile here blood work here is normal no signs of acute infection here he feels improved he stable for discharge she is to follow-up with PCP as scheduled on return if worsening he understands agrees to plan. Medical Records I reviewed the patient's medical records. Lab Data I reviewed the patient's lab results. 11/10/23 20:55 11/10/23 20:55 Labs/Radiology: Laboratory Results WBC 7.32 10^3/uL (3.29-11.43) 11/10/23 20:55 RBC 2.75 10^6/uL (3.85-5.65) L 11/10/23 20:55 Hgb 10.40 g/dL (11.27-16.99) L 11/10/23 20:55 Hct 29.9 % (37-53) L 11/10/23 20:55 MCV 108.7 fl (82-101) H 11/10/23 20:55 MCH 37.8 pg (27-33) H 11/10/23 20:55 MCHC 34.8 g/dL (30-55) 11/10/23 20:55 RDW 17.5 % (12.1-15.1) H 11/10/23 20:55 Plt Count 149 10^3/cmm (157-399) L 11/10/23 20:55 MPV 10.8 fL (7.4-10.4) H 11/10/23 20:55 Neut % (Auto) 63.0 % 11/10/23 20:55 Lymph % (Auto) 13.0 % 11/10/23 20:55 [place] % (Auto) 19.0 % 11/10/23 20:55 Eos % (Auto) 4.2 % 11/10/23 20:55 Baso % (Auto) 0.5 % 11/10/23 20:55 Neut # (Auto) 4.61 10^3/uL (1.8-7.7) 11/10/23 20:55 Lymph # (Auto) 1.0 10^3/uL (0.8-4.8) 11/10/23 20:55 [place] # (Auto) 1.4 10^3/uL (0.2-0.9) H 11/10/23 20:55 Eos # (Auto) 0.3 10^3/uL (0.0-0.8) 11/10/23 20:55 Baso # (Auto) 0.0 10^3/uL (0.0-0.1) 11/10/23 20:55 Nucleated RBC % (auto) 0 % 11/10/23 20:55 Nucleated RBCs # 0.0 /100WBC 11/10/23 20:55 Sodium 136 mmol/L (136-145) 11/10/23 20:55 Potassium 4.0 mmol/L (3.5-5.1) 11/10/23 20:55 Chloride 100 mmol/L (98-107) 11/10/23 20:55 Carbon Dioxide 26 mmol/L (22-29) 11/10/23 20:55 Anion Gap 14.0 (5-19) 11/10/23 20:55 BUN 10 mg/dL (6-20) 11/10/23 20:55 Creatinine 1.4 mg/dL (0.7-1.2) H 11/10/23 20:55 GFR Calculation 53.9 mL/min (90-130) L 11/10/23 20:55 Glucose 82 mg/dL (65-115) 11/10/23 20:55 Calculated Osmolality 280 mOsm/kg (285-295) L 11/10/23 20:55 Lactic Acid 2.2 mmol/L (0.5-2.2) 11/10/23 20:55 Calcium 8.3 mg/dL (8.5-10.5) L 11/10/23 20:55 Total Bilirubin 2.2 mg/dL (0.15-1.2) H 11/10/23 20:55 AST 43 U/L (0-40) H 11/10/23 20:55 ALT 23 U/L (0-41) 11/10/23 20:55 Alkaline Phosphatase 140 U/L (40-130) H 11/10/23 20:55 Total Protein 6.7 g/dL (6.6-8.7) 11/10/23 20:55 Albumin 3.5 g/dL (3.5-5.2) 11/10/23 20:55 Globulin 3.2 g/dL (1.3-4.6) 11/10/23 20:55 Lipase 41 U/L (13-60) 11/10/23 20:55 Urine Color Yellow (Yellow) 11/10/23 21:52 Urine Appearance Clear (CLEAR) 11/10/23 21:52 Urine pH 5.0 (5-7) 11/10/23 21:52 Ur Specific [place] 1.006 (1.005-1.030) 11/10/23 21:52 Urine Protein Negative (Negative) 11/10/23 21:52 Urine Glucose (UA) Negative (Normal) 11/10/23 21:52 Urine Ketones Negative (Negative) 11/10/23 21:52 Urine Blood Negative (Negative) 11/10/23 21:52 Urine Nitrate Negative (Negative) 11/10/23 21:52 Urine Bilirubin Negative (Negative) 11/10/23 21:52 Urine Urobilinogen 0.2 mg/dL (Negative) 11/10/23 21:52 Ur Leukocyte Esterase Negative (Negative) 11/10/23 21:52 Urine RBC 0-2 /hpf (0-2) 11/10/23 21:52 Urine WBC 0-5 /hpf (0-5) 11/10/23 21:52 Ur Squamous Epith Cells 0-5 /hpf (0-5) 11/10/23 21:52 Amorphous Sediment Not Reportable 11/10/23 21:52 Urine Bacteria None seen /hpf (NONE) 11/10/23 21:52 Hyaline Casts 2.87 /lpf 11/10/23 21:52 No radiology studies performed this visit Discharge Plan Discharge Patient Disposition: Home Clinical Impression: Abdominal pain Liver cirrhosis Qualifiers: Hepatic cirrhosis type: unspecified hepatic cirrhosis Ascites presence: with ascites Qualified Code(s): K74.60 - Unspecified cirrhosis of liver Condition: Stable Prescriptions: New hydrocodone-acetaminophen 5-325 mg tablet 1 tab PO Q6H PRN (Reason: pain) Qty: 14 0RF No Action furosemide 40 mg Tablet 40 mg PO DAILY spironolactone 25 mg Tablet 50 mg PO DAILY nadolol 20 mg tablet 20 mg PO DAILY pantoprazole 40 mg tablet,delayed release (DR/EC) 40 mg PO DAILY allopurinol 300 mg Tablet 300 mg PO DAILY ondansetron HCl 4 mg tablet 4 mg PO Q8H Qty: 30 0RF Discharge Orders: Discharge ED (Routine); Ordered 11/10/23 Ordered By: Joshua Moon Discharge Diet: Advance as tolerated Discharge Activity: Resume usual activity Patient Instructions: Abdominal Pain (ED) Coding Level of Care Code ED Admitting Office Escort for Jess López
[2023-11-10 22:05] LABS: Bilirubin Urine Negative (Negative); Blood Urine Negative (Negative); Glucose Urine UA Negative (Normal); Ketones Urine Negative (Negative); Leukocyte Esterase Urine Negative (Negative); Nitrate Urine Negative (Negative); Protein Urine Negative (Negative); Specific Gravity, Urine 1.006 (1.005-1.030); Urine Appearance Clear (CLEAR); Urine Color Yellow (Yellow); Urobilinogen Urine 0.2 mg/dL (Negative)
[2023-11-10 22:10] LABS: Add Urine Microscopic? YES; Bacteria Urine None Seen /hpf; Hyaline Casts Urine 2.87 /lpf; RBC Urine 0-2 /hpf (0-2); Squamous Epithelial Cell Urine 0-5 /hpf (0-5); WBC Urine 0-5 /hpf (0-5)
[2023-11-10 22:14] LABS: Lactic Sepsis W/Reflex 2.2 mmol/L (0.5-2.2)
[2023-11-10] MEDS: sodium chloride 0.9% 1,000 ML 999 ML IV ×2 (22:16→22:38)
[2023-11-10] MEDS: HYDROmorphone 1 mg/mL INJ 1 mL 0.5 MG IVP (22:17)
[2023-11-10] MEDS: ondansetron 2 mg/ML SDV 2 mL 4 MG IVP (22:17)
[2023-11-10 22:21] VITALS: BP 98/60; PULSE 66; RESP 16; O2SAT 95
[2023-11-10 22:53] VITALS: BP 90/50; PULSE 78; RESP 16; O2SAT 97
[2023-11-10 23:50] LABS: Reflex Lactate Order REFLEX LACTIC ORDERD
[2023-11-11] VITALS: BP 93/52; PULSE 75; RESP 16; O2SAT 93
[2023-11-11 00:02] VITALS: BP 93/52; PULSE 72; O2SAT 94
== END 2023-11-11 00:03 | disposition home or self-care (01) ==
PROVIDERS: Emergency Provider Emergency Medicine
DX: K74.60 Unspecified cirrhosis of liver (principal); F17.210 Nicotine dependence, cigarettes, uncomplicated; R10.30 Lower abdominal pain, unspecified
CPT/HCPCS: 36415; 80053; 81001; 83605; 83690; 85025; 96361; 96374; 96375; 99285; J1170; J2405; J7030

== ENCOUNTER 2023-12-03 11:36 | Day surgery (SDC) | payer OTHER, SELFPAY ==
[2023-12-03 11:46] VITALS: BMI 25.4
[2023-12-03 11:49] VITALS: BP 123/85; PULSE 98; RESP 16; TEMP 36.8; O2SAT 100
--- NOTE | 2023-12-03 11:50 | US_ITS ---
WS: [id number] ULTRASOUND-GUIDED PARACENTESIS CLINICAL INFORMATION: ascites COMPARISON: None. Procedure Informed consent: The risks, benefits, and alternatives of the procedure were discussed with the avi ent. Verbal and written consent was obtained. Timeout: A timeout was performed to confirm the correct patient, procedure, and site. Preparation: A suitable skin site was identified. The patient was prepped and draped in usual sterile fashion. Lidocaine 1% was used for local anesthesia. Catheter: 4 Marshallese One-step Yueh catheter. Side: RIGHT lower quadrant. Fluid Volume: 5600 ml Color: Clear yellow DISPOSITION: Discarded safely. Complications: None. Patient disposition: Discharged from the department in stable condition. US/US paracentesis abd w [id number] IMPRESSION: Uncomplicated ultrasound-guided paracentesis. Removal of 5600 cc
[2023-12-03 12:54] LABS: Color, Pleural Fluid Pale Yellow (Pale Yellow); Cyto Order Verification No Order
[2023-12-03 12:56] LABS: Appearance, Pleural Fluid CLOUDY (CLEAR); PATH Referal YES
[2023-12-03] MEDS: albumin 25 G/100 ML BAG 60 G IV (13:07)
[2023-12-03 13:08] LABS: Mononuclear %, Pleural Fluid 88 %; Polynuclear Cells, Pleural % 12 %
== END 2023-12-03 13:41 | disposition home or self-care (01) ==
PROVIDERS: Radiology Neuroradiology; Visit Provider Internal Medicine Gastroenterology
PROC: (CPT 49082; principal; 2023-12-03 13:00)
DX: R18.8 Other ascites (principal)
CPT/HCPCS: 49083; 80503; 87070; 87075; 87205; 89050; 96365; P9046

== ENCOUNTER 2023-12-06 07:35 | Outpatient (CLI) | payer OTHER, SELFPAY ==
--- NOTE | 2023-12-06 | ECG_ITS ---
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 The perfusion scan will be documented separately. DATA: Baseline heart rate was 76 beats per minute. Baseline blood pressure was 112/66 millimeters of mercury. Target heart rate was 171. Maximum heart rate achieved was 105. which was 61% of the predicted target heart rate. Maximum blood pressure was 196/63illimeters of mercury. The reason for ending the test was completion of the protocol. The patient did not experience any symptoms. ELECTROCARDIOGRAM: BASELINE: Sinus rhythm. Normal axis. Otherwise, no ST-T changes suggestive of ischemia noted. No arrhythmia noted. EXERCISE: After Lexiscan injection, no ST-T changes suggestive of ischemic noted. No arrhythmia noted. CONCLUSION: Please note due to baseline abnormality of the EKG specificity and sensitivity of the EKG portion of LexiScan MIBI stress test will be low 1. EKG not suggestive of ischemia 2. Lexiscan injection unremarkable. 3. Blood pressure response hypertension 3. erfusion scan will be documented separately. Electronically Signed On 12-16-2023 17:35:53 CDT by VLADIMIR GARAY [email or web address]
[2023-12-06 07:51] VITALS: BMI 23.6
--- NOTE | 2023-12-06 07:53 | NMCV_ITS ---
NM jodi perf SPECT r/s* [id number] Chase Rivero Age: 48 Gender: M : 1975 Exam Date: 12/06/2023 08:27 Ordering Phys: Fifi Stern Technologist: JOSE Harman Exam Location: [facility] Indications: cp STRESS TEST Please see separate stress test report in [facility] for full findings IMAGE PROTOCOL Rest/Stress 1 Lexiscan Day Radiopharmaceutical Dose (mCi) Administration Site Administered by Rest: Tc-99m 10.6 IV JOSE Pantoja Sestamibi Stress:Tc-99m 32.4 IV JOSE Pantoja Sestamibi Rest: 06-Dec-2023 60 Discovery 630 Stress: 06-Dec-2023 30 Discovery 630 0.4mg Lexiscan. Images obtained in supine and prone position. SPECT RESULTS Technical Quality: Good Raw Data Analysis: Normal Image Corrections: No attenuation or motion correction applied Summed Stress Score: 0 Summed Rest Score: 0 Summed Difference Score: 0 PERFUSION FINDINGS Uniform myocardial tracer uptake with no significant Perfusion abnormalities. FUNCTIONAL RESULTS (calculated via Gated SPECT) Stress Image LV EF (%): 92 Stress EDV (mL):61 TID: 1.14 Stress ESV (mL):5 FUNCTIONAL FINDINGS: Segmental wall motion analysis revealing no gross wall motion abnormalities IMPRESSIONS 1. Myocardial perfusion imaging revealing uniform mitral tracer uptake with no significant perfusion abnormalities. 2. Normal LV ejection fraction of 92%. 3. LV wall motion analysis revealing no gross wall motion abnormalities. 4. Normal LV volume Low probability for coronary ischemia, based on the above findings Dr Ace Hinton MD FAC (Electronically Signed) Final Date: 06 December 2023 16:37 S
[2023-12-06] MEDS: regadenoson 0.4 Mg/5 ml Syringe IVP (09:06)
[2023-12-06] MEDS: aminophylline 25 mg/mL SDV 10 mL IVP (09:23)
[2023-12-06 09:27] VITALS: BP 128/66
== END 2023-12-06 07:36 | disposition home or self-care (01) ==
PROVIDERS: PCP Family Medicine; Visit Provider Nurse Practitioner Family
DX: K70.9 Alcoholic liver disease, unspecified (principal); R06.02 Shortness of breath
CPT/HCPCS: 36415; 78452; 93017; 96374; A9500; J0280; J2785

== ENCOUNTER 2023-12-11 16:16 | Emergency (ER) | payer OTHER, SELFPAY ==
[2023-12-11] VITALS (11 sets, daily range): BP systolic 91–123; BP diastolic 53–79; PULSE 75–111; RESP 17–20; TEMP 36.7; O2SAT 93–99; BMI 24.3
--- NOTE | 2023-12-11 17:40 | W.ED.ABDPA2 ---
HPI - Abdominal Pain General: Chief Complaint: Abdominal Pain Stated Complaint: fever and stomach Time Seen by Provider: 12/11/23 17:06 History of Present Illness: Patient presents to the ER with complaints of headache nausea dry heaving. Patient states this been going on for several days. Patient has had an appointment for Sunday for paracentesis. Patient has cirrhosis of the liver. Patient also complaining of left upper quadrant pain that radiates to his back. Patient is already tried his Zofran at home but this did not seem to work. Related Data Home Medications Medication Instructions Recorded Confirmed allopurinol 300 mg tablet 300 mg PO DAILY 06/29/23 11/30/23 nadolol 20 mg tablet 20 mg PO DAILY 06/29/23 11/30/23 pantoprazole 40 mg tablet,delayed 40 mg PO DAILY 06/29/23 11/30/23 release spironolactone 25 mg tablet 50 mg PO DAILY 06/29/23 11/30/23 ondansetron HCl 4 mg tablet 4 mg PO Q8H PRN Nausea And Vomiting 11/30/23 11/30/23 Previous Rx's Medication Instructions Recorded tramadol 50 mg tablet 50 mg PO Q8H PRN pain #14 tabs 12/11/23 Allergies Allergy/AdvReac Type Severity Reaction Status Date / Time No Known Allergies Allergy Verified 11/30/23 11:11 Review of Systems General: Reports: 10 or more systems reviewed and unremarkable except in HPI and below PFSH ED PFSH: Medical History Acute hepatic failure Abdominal ascites Smoker Colitis Low oxygen saturation Enteropathy Smoking addiction Alcohol use disorder Thrombocytopenia Liver cirrhosis Hematuria Ascites due to alcoholic cirrhosis Abdominal pain 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 History of colon polyps Rectal polyp 10 and 15 cm, cecum biopsy Sigmoid colon polyp Seasonal allergies Splenomegaly Enterocolitis 2016 Surgical History Status post colonoscopy with polypectomy H/O esophagogastroduodenoscopy Vasectomy status H/O left inguinal hernia repair Family History Denies family history of Cancer Social History Smoking and tobacco/nicotine status: current every day tobacco/nicotine user cigarettes [ Other cigarette details: At least 53-sgaq-stls history, currently cutting down to several cigarettes] Alcohol intake: current Substance/Drug Use: never Lives independently: Yes Housing: House Marital status: Physical Exam Const: COMMON NORMALS: no acute distress, average body habitus, patient oriented x3, no limitations, healthy appearing, alert and well nourished HENMT: COMMON NORMALS: normocephalic, atraumatic, hearing grossly normal bilaterally, external ears normal, Normal external nose present and moist oral mucous membranes HEAD & SCALP: normocephalic and atraumatic NOSE: Normal external nose present EXTERNAL EAR: Yes external ears normal Neck/C-Spine: COMMON NORMALS: full ROM, no lymphadenopathy, supple, no meningeal signs, no JVD and Thyroid normal THYROID: Thyroid normal Chest: COMMONS NORMALS: normal inspection of the chest and normal palpation of entire chest wall Resp: COMMON NORMALS: normal respiratory effort, No retractions, No use of accessory muscles and clear to auscultation bilaterally AUSCULTATION: clear to auscultation bilaterally Cardio: COMMON NORMALS: no JVD, regular rate, regular rhythm, S1 normal heart sound present, S2 normal heart sound present, No gallops present (Cardio), No clicks present (Cardio), No murmurs present (Cardio) and No rub (Cardio) RATE: regular rate RHYTHM: regular rhythm HEART SOUNDS: S1 normal heart sound present and S2 normal heart sound present GI: COMMON NORMALS: Normal to inspection, nondistended, normoactive bowel sounds present, Soft to palpation, No hepatosplenomegaly present and no masses; negative for non-tender (Mildly tender to palpate left upper quadrant) PALPATION: Yes Soft to palpation and Yes No hepatosplenomegaly present Neuro: COMMON NORMALS: patient oriented x3 SENSORIUM/ORIENTATION: Yes alert MENINGEAL SIGNS: Yes no meningeal signs Course Vital Signs: Vital signs: Vital Signs Temperature 98.1 F 12/11/23 16:36 Pulse Rate 87 12/12/23 00:22 Respiratory Rate 18 12/11/23 23:30 Blood Pressure 105/67 12/12/23 00:22 Pulse Oximetry 93 12/12/23 00:22 Oxygen Delivery Me thod Room Air 12/11/23 22:30 MDM - Abdominal Pain Medical Decision Making Lab work was reviewed as well as abdominal pelvic CT scan with the patient and . Patient be given tramadol to go home with for pain and was instructed to call his doctor and try to get his paracentesis moved up. Patient is understanding with this. Lab Data 12/11/23 18:40 12/11/23 18:40 Labs/Radiology: Radiology Impressions Abdomen/Pelvis CT 12/11/23 21:55 IMPRESSION: 1. Cirrhotic liver morphology with imaging features of portal hypertension including moderately large ascites, splenomegaly, portosystemic collaterals, and a recanalized paraumbilical vein. 2. Findings suggestive of gastric and portal colopathy. 3. Additional ancillary findings as above are similar to prior. Laboratory Results WBC 5.62 10^3/uL (3.29-11.43) 12/11/23 18:40 RBC 3.29 10^6/uL (3.85-5.65) L 12/11/23 18:40 Hgb 12.10 g/dL (11.27-16.99) 12/11/23 18:40 Hct 34.2 % (37-53) L 12/11/23 18:40 MCV 104.0 fl (82-101) H 12/11/23 18:40 MCH 36.8 pg (27-33) H 12/11/23 18:40 MCHC 35.4 g/dL (30-55) 12/11/23 18:40 RDW 16.8 % (12.1-15.1) H 12/11/23 18:40 Plt Count 156 10^3/cmm (157-399) L 12/11/23 18:40 MPV 10.1 fL (7.4-10.4) 12/11/23 18:40 Neut % (Auto) 67.3 % 12/11/23 18:40 Lymph % (Auto) 13.7 % 12/11/23 18:40 [place] % (Auto) 16.0 % 12/11/23 18:40 Eos % (Auto) 2.1 % 12/11/23 18:40 Baso % (Auto) 0.5 % 12/11/23 18:40 Neut # (Auto) 3.78 10^3/uL (1.8-7.7) 12/11/23 18:40 Lymph # (Auto) 0.8 10^3/uL (0.8-4.8) 12/11/23 18:40 [place] # (Auto) 0.9 10^3/uL (0.2-0.9) 12/11/23 18:40 Eos # (Auto) 0.1 10^3/uL (0.0-0.8) 12/11/23 18:40 Baso # (Auto) 0.0 10^3/uL (0.0-0.1) 12/11/23 18:40 Nucleated RBC % (auto) 0 % 12/11/23 18:40 Nucleated RBCs # 0.0 /100WBC 12/11/23 18:40 PT 16.00 SECONDS (12.1-14.9) H 12/11/23 18:40 INR 1.24 (0.8-1.2) H 12/11/23 18:40 Sodium 131 mmol/L (136-145) L 12/11/23 18:40 Potassium 4.7 mmol/L (3.5-5.1) 12/11/23 18:40 Chloride 96 mmol/L (98-107) L 12/11/23 18:40 Carbon Dioxide 24 mmol/L (22-29) 12/11/23 18:40 Anion Gap 15.7 (5-19) 12/11/23 18:40 BUN 11 mg/dL (6-20) 12/11/23 18:40 Creatinine 1.3 mg/dL (0.7-1.2) H 12/11/23 18:40 GFR Calculation 58.7 mL/min (90-130) L 12/11/23 18:40 Glucose 107 mg/dL (65-115) 12/11/23 18:40 Calculated Osmolality 272 mOsm/kg (285-295) L 12/11/23 18:40 Calcium 9.0 mg/dL (8.5-10.5) 12/11/23 18:40 Magnesium 1.9 mg/dL (1.7-2.3) 12/11/23 18:40 Total Bilirubin 3.1 mg/dL (0.15-1.2) H 12/11/23 18:40 AST 62 U/L (0-40) H 12/11/23 18:40 ALT 37 U/L (0-41) 12/11/23 18:40 Alkaline Phosphatase 194 U/L (40-130) H 12/11/23 18:40 Total Protein 8.3 g/dL (6.6-8.7) 12/11/23 18:40 Albumin 4.1 g/dL (3.5-5.2) 12/11/23 18:40 Globulin 4.2 g/dL (1.3-4.6) 12/11/23 18:40 Lipase 45 U/L (13-60) 12/11/23 18:40 Urine Color Dark yellow (Yellow) A 12/11/23 19: Urine Appearance Clear (CLEAR) 12/11/23 19: Urine pH 5.0 (5-7) 12/11/23 19:30 Ur Specific [place] 1.018 (1.005-1.030) 12/11/23 19: Urine Protein Negative (Negative) 12/11/23 19: Urine Glucose (UA) Negative (Normal) 12/11/23 19:30 Urine Ketones Negative (Negative) 12/11/23 19: Urine Blood Negative (Negative) 12/11/23 19: Urine Nitrate Negative (Negative) 12/11/23 19:30 Urine Bilirubin 1+ (Negative) H 12/11/23 19:30 Urine Urobilinogen 1.0 mg/dL (Negative) 12/11/23 19:30 Ur Leukocyte Esterase Negative (Negative) 12/11/23 19:30 Urine RBC 0-2 /hpf (0-2) 12/11/23 19:30 Urine WBC 0-5 /hpf (0-5) 12/11/23 19:30 Ur Squamous Epith Cells 0-5 /hpf (0-5) 12/11/23 19:30 Amorphous Sediment Not Reportable 12/11/23 19:30 Urine Bacteria None seen /hpf (NONE) 12/11/23 19: Hyaline Casts 7.01 /lpf 12/11/23 19:30 All radiology interpretation(s) finalized by discharge Discharge Plan Discharge Patient Disposition: Home Clinical Impression: Abdominal ascites Abdominal pain Qualifiers: Abdominal location: left upper quadrant Qualified Code(s): R10.12 - Left upper quadrant pain Condition: Stable Prescriptions: New tramadol 50 mg tablet 50 mg PO Q8H PRN (Reason: pain) Qty: 14 0RF No Action spironolactone 25 mg Tablet 50 mg PO DAILY nadolol 20 mg tablet 20 mg PO DAILY pantoprazole 40 mg tablet,delayed release (DR/EC) 40 mg PO DAILY allopurinol 300 mg Tablet 300 mg PO DAILY ondansetron HCl 4 mg tablet 4 mg PO Q8H PRN (Reason: Nausea And Vomiting) Discharge Orders: Discharge ED (Routine); Ordered 12/11/23 Ordered By: Nelson Clement Referrals: Alia Sanchez MD [Primary Care Provider] - 1 week Patient Instructions: Ascites, Abdominal Pain (ED) Activity Restrictions/Additional Instructions: You have been given a prescription for tramadol that which was sent to your pharmacy for pain. Please take this as directed. Please call your physician first thing in the morning try to get your paracentesis moved up. Coding Level of Care Code ED Home Health Aide Caregiver for Jess López
[2023-12-11 19:03] LABS: Basophils % 0.5 %; Eosinophils # 0.1 10^3/uL (0.0-0.8); Eosinophils % 2.1 %; Hematocrit 34.2 % (37-53); Lymphocytes # 0.8 10^3/uL (0.8-4.8); Lymphocytes % 13.7 %; Mean Corpuscular HGB Conc 35.4 g/dL (30-55); Mean Corpuscular Hemoglobin 36.8 pg (27-33); Mean Platelet Volume 10.1 fL (7.4-10.4); Monocytes # 0.9 10^3/uL (0.2-0.9); Neutrophils # 3.78 10^3/uL (1.8-7.7); Neutrophils % 67.3 %; Nucleated Red Blood Cells % 0 %; Platelet Count 156 10^3/cmm (157-399); Red Blood Count 3.29 10^6/uL (3.85-5.65); Red Cell Distribution Width 16.8 % (12.1-15.1); White Blood Count 5.62 10^3/uL (3.29-11.43)
[2023-12-11 19:12] LABS: INR 1.24 (0.8-1.2)
[2023-12-11] MEDS: metoclopramide 5 mg/mL SDV 2 mL 10 MG IVP (19:13)
[2023-12-11] MEDS: sodium chloride 0.9% 1,000 ML 999 ML IV (19:14)
[2023-12-11] MEDS: diphenhydrAMINE 50 mg/mL SDV 1mL 25 MG IVP (19:14)
[2023-12-11 19:17] LABS: Alanine Aminotransferase 37 U/L (0-41); Albumin Level 4.1 g/dL (3.5-5.2); Alkaline Phosphatase 194 U/L (40-130); Anion Gap 15.7 (5-19); Aspartate Amino Transferase 62 U/L (0-40); Blood Urea Nitrogen 11 mg/dL (6-20); Carbon Dioxide 24 mmol/L (22-29); Chloride 96 mmol/L (98-107); Creatinine Clr Calc Pharmacy 68.1236; Globulin 4.2 g/dL (1.3-4.6); Glomerular Filtration Rate 58.7 mL/min (90-130); Glucose 107 mg/dL (65-115); Lipase 45 U/L (13-60); Magnesium 1.9 mg/dL (1.7-2.3); Osmolality Calculated 272 mOsm/kg (285-295); Potassium 4.7 mmol/L (3.5-5.1); Sodium 131 mmol/L (136-145); Total Bilirubin 3.1 mg/dL (0.15-1.2); Total Protein 8.3 g/dL (6.6-8.7)
[2023-12-11 19:40] LABS: Bilirubin Urine 1+ (Negative); Blood Urine Negative (Negative); Glucose Urine UA Negative (Normal); Ketones Urine Negative (Negative); Leukocyte Esterase Urine Negative (Negative); Nitrate Urine Negative (Negative); Protein Urine Negative (Negative); Specific Gravity, Urine 1.018 (1.005-1.030); Urine Appearance Clear (CLEAR); Urine Color Dark Yellow (Yellow)
[2023-12-11 19:45] LABS: Add Urine Microscopic? YES; Bacteria Urine None Seen /hpf; Hyaline Casts Urine 7.01 /lpf; RBC Urine 0-2 /hpf (0-2); Squamous Epithelial Cell Urine 0-5 /hpf (0-5); WBC Urine 0-5 /hpf (0-5)
[2023-12-11] MEDS: TRAMadol 50 mg Tablet PO (20:18)
--- NOTE | 2023-12-11 21:55 | CTR_ITS ---
PROCEDURE INFORMATION: Exam: CT Abdomen And Pelvis With Contrast Exam date and time: 12/11/2023 10:05 PM Age: 48 years old Clinical indication: Nausea and vomiting; Prior surgery; Surgery date: 6+ months; Surgery type: HX of hernia repair; Additional info: Luq abd pain, n/v, cirrhosis TECHNIQUE: Imaging protocol: Computed tomography of the abdomen and pelvis with contrast. Radiation optimization: All CT scans at this facility use at least one of these dose optimization techniques: automated exposure control; mA and/or kV adjustment per patient size (includes targeted exams where dose is matched to clinical indication); or iterative reconstruction. Contrast material: OMNI 350; Contrast volume: 100 ml; Contrast route: INTRAVENOUS (IV); COMPARISON: CT abdomen pelvis w con* [id number] 10/20/2023 11:15 PM RADIATION DOSE METRICS: Total DLP (mGy-cm): 673.838 FINDINGS: Liver: Redemonstrated cirrhotic liver morphology with a nodular contour. Ill-defined areas of hypodensity are similar to prior. Gallbladder and biliary ducts: Normal. No calcified stones. No ductal dilation. Pancreas: Normal. No ductal dilation. Spleen: Ongoing splenomegaly. Adrenal glands: Normal. No mass. Kidneys and ureters: Normal. No hydronephrosis. Stomach and bowel: Moderate mural thickening of the stomach and proximal colon. Appendix: No evidence of appendicitis. Intraperitoneal space: Moderate to large volume ascites throughout the abdomen and pelvis. Vasculature: Moderate atherosclerotic calcifications of the abdominal aorta. No aortic aneurysm. Paraesophageal and upper abdominal varices. Recanalized paraumbilical vein. Lymph nodes: Unremarkable. No enlarged lymph nodes. Urinary bladder: Unremarkable as visualized. Reproductive: Unremarkable as visualized. Bones/joints: Advanced degenerative disc disease at L5-S1. Soft tissues: Umbilical and right inguinal hernias containing fluid as before. Partially imaged marked gynecomastia. CT/CT abdomen pelvis w con* [id number] IMPRESSION: 1. Cirrhotic liver morphology with imaging features of portal hypertension including moderately large ascites, splenomegaly, portosystemic collaterals, and a recanalized paraumbilical vein. 2. Findings suggestive of gastric and portal colopathy. 3. Additional ancillary findings as above are similar to prior.
[2023-12-11] MEDS: iohexol 350 mg/mL 500 mL Btl (per mL) IV (22:10)
[2023-12-11] MEDS: TRAMadol 50 mg Tablet 100 MG PO (23:57)
[2023-12-12 00:22] VITALS: BP 105/67; PULSE 87; O2SAT 93
== END 2023-12-12 00:01 | disposition home or self-care (01) ==
PROVIDERS: Emergency Provider Emergency Medicine; PCP Family Medicine
DX: R18.8 Other ascites (principal); Z79.899 Other long term (current) drug therapy
CPT/HCPCS: 36415; 74177; 80053; 81001; 83690; 83735; 85025; 85610; 96374; 96375; 99285; J1200; J2765; J7030

== ENCOUNTER 2023-12-13 11:21 | Day surgery (SDC) | payer OTHER, SELFPAY ==
[2023-12-13 11:31] VITALS: BP 121/84; PULSE 102; RESP 20; TEMP 36.4; O2SAT 97
[2023-12-13 11:41] VITALS: BMI 25.2
--- NOTE | 2023-12-13 11:46 | US_ITS ---
WS: [id number] ULTRASOUND-GUIDED THERAPEUTIC AND DIAGNOSTIC PARACENTESIS Procedure, risks, and complications have been explained to the patient. Consent is obtained. Utilizing aseptic technique and 1% buffered lidocaine, a small dermatome was made through which a 5 F rench Yueh catheter was inserted. Approximately 8500 ml of clear peritoneal fluid was obtained witho ut difficulty. No complications encountered. US/US paracentesis abd w [id number] IMPRESSION: Uncomplicated paracentesis yielding 8500 ml of peritoneal fluid.
[2023-12-13 12:13] LABS: Appearance, Peritoneal Fluid Cloudy (Clear); Color, Peritoneal Fluid Pale Yellow (Pale Yellow); Cyto Order Verification No Order
[2023-12-13 12:19] LABS: Mononuclear #, Pertinoneal Fl 0.077 10^3/uL; Polynuclear # Cells, Perit 0.009 10^3/uL; RBC Pertioneal Fluid 0 10^3/uL; WBC Peritoneal Fluid 86 /uL
[2023-12-13] MEDS: albumin 25 G/100 ML BAG 60 G IV ×2 (12:42→13:19)
== END 2023-12-13 14:00 | disposition home or self-care (01) ==
PROVIDERS: Radiology Diagnostic Radiology; Visit Provider Internal Medicine Gastroenterology
PROC: (CPT 49082; principal; 2023-12-13 13:00)
DX: R18.8 Other ascites (principal); K74.60 Unspecified cirrhosis of liver
CPT/HCPCS: 49083; 80503; 87075; 89050; P9046

== ENCOUNTER 2023-12-25 13:48 | Outpatient (CLI) | payer OTHER, SELFPAY ==
[2023-12-25 14:19] LABS: Bilirubin Urine 1+ (Negative); Blood Urine Non-haemolysed trace (Negative); Glucose Urine UA Negative (Normal); Ketones Urine Trace (Negative); Leukocyte Esterase Urine Trace (Negative); Nitrate Urine Negative (Negative); Protein Urine Trace (Negative); Specific Gravity, Urine 1.018 (1.005-1.030); Urine Appearance Clear (CLEAR); pH Urine 5.5 (5-7)
[2023-12-25 14:23] LABS: Add Urine Microscopic? YES; Bacteria Urine None Seen /hpf; Hyaline Casts Urine 40.13 /lpf; Squamous Epithelial Cell Urine 0-5 /hpf (0-5); WBC Urine 0-5 /hpf (0-5)
[2023-12-25 14:35] LABS: INR 1.28 (0.8-1.2)
[2023-12-25 14:36] LABS: Alanine Aminotransferase 33 U/L (0-41); Alkaline Phosphatase 165 U/L (40-130); Anion Gap 20.2 (5-19); Aspartate Amino Transferase 53 U/L (0-40); Blood Urea Nitrogen 11 mg/dL (6-20); Calcium 9.3 mg/dL (8.5-10.5); Carbon Dioxide 21 mmol/L (22-29); Chloride 88 mmol/L (98-107); Globulin 3.7 g/dL (1.3-4.6); Glomerular Filtration Rate 49.7 mL/min (90-130); Glucose 120 mg/dL (65-115); Osmolality Calculated 261 mOsm/kg (285-295); Potassium 4.2 mmol/L (3.5-5.1); Sodium 125 mmol/L (136-145); Total Bilirubin 3.2 mg/dL (0.15-1.2); Total Protein 7.7 g/dL (6.6-8.7)
[2023-12-25 14:57] LABS: Urine Color Orange (Yellow)
[2023-12-25 14:58] LABS: Add Urine Culture? No; UA Slide Review UA Slide Review Perf
== END 2023-12-25 13:49 | disposition home or self-care (01) ==
LOC: LAB 13:51
PROVIDERS: PCP Family Medicine; Visit Provider Internal Medicine Gastroenterology
DX: K74.60 Unspecified cirrhosis of liver (principal)
CPT/HCPCS: 36415; 80053; 81001; 82248; 85610

== ENCOUNTER 2023-12-28 06:59 | Day surgery (SDC) | payer OTHER, SELFPAY ==
--- NOTE | 2023-12-28 07:09 | US_ITS ---
WS: [id number] ULTRASOUND-GUIDED THERAPEUTIC AND DIAGNOSTIC PARACENTESIS Procedure, risks, and complications have been explained to the patient. Consent is obtained. Utilizing aseptic technique and 1% buffered lidocaine, a small dermatome was made through which a 5 F rench Yueh catheter was inserted. Approximately 9500 ml of clear peritoneal fluid was obtained witho ut difficulty. No complications encountered. Specimen collected for analysis as requested. US/US paracentesis abd w [id number] IMPRESSION: Uncomplicated paracentesis yielding 9500 ml of peritoneal fluid.
[2023-12-28 07:21] VITALS: BP 127/79; PULSE 91; RESP 18; TEMP 36.4; O2SAT 96
[2023-12-28] MEDS: albumin 25 G/100 ML BAG 60 G IV ×3 (09:25→09:57)
[2023-12-28 09:26] LABS: Mononuclear %, Pleural Fluid 83 %; Polynuclear Cells, Pleural % 17 %
[2023-12-28 09:44] LABS: Appearance, Pleural Fluid CLOUDY (CLEAR); Color, Pleural Fluid Yellow (Pale Yellow); Cyto Order Verification No Order
[2023-12-28 09:45] LABS: PATH Referal YES
== END 2023-12-28 10:23 | disposition home or self-care (01) ==
LOC: GILAB 07:01
PROVIDERS: Radiology Diagnostic Radiology; PCP Family Medicine; Visit Provider Internal Medicine Gastroenterology
PROC: (CPT 49082; principal; 2023-12-28 08:30)
DX: K74.60 Unspecified cirrhosis of liver (principal); R18.8 Other ascites
CPT/HCPCS: 49083; 80503; 89050; 96365; P9046

== ENCOUNTER 2023-12-29 18:08 | Inpatient (IN) | payer OTHER, SELFPAY ==
[2023-12-29 18:19] VITALS: BP 101/66; PULSE 100; RESP 18; TEMP 36.7; O2SAT 100
--- NOTE | 2023-12-29 18:23 | ECG_ITS ---
[facility] Test Date: 2023-12-29 Pat Name: Chase Rivero Department: Room: Gender: Male Recycle Coordinator: : 1975 Requested By: Mary Howell Order Number: [id number] Demarcus MD: Eddie Bustillo M.D. Measurements Intervals [place] Rate: 92 P: 56 NV: 149 QRS: -37 QRSD: 87 T: 56 QT: 348 QTc: 431 Interpretive Statements SINUS RHYTHM LEFT AXIS DEVIATION [QRS AXIS < -30] Nonspecific ST changes No previous ECG available for comparison Electronically Signed On 12-30-2023 14:12:39 EXTENSION PROFESSOR by Eddie Bustillo M.D. [email or web address]
--- NOTE | 2023-12-29 19:22 | W.ED.WEAKNES ---
HPI - Weakness General: Chief complaint: Weakness Stated complaint: lethargic, sodium levels low. dizzy Time Seen by Provider: 12/29/23 19:21 History of Present Illness: 48-year-old man with a history of cirrhosis who presents to the emergency room with worsening lightheadedness and weakness. He had a paracentesis yesterday and had 9 L off. He says he often gets weak afterwards but this is worse than usual. Also was told that his sodium was low on labs a couple of days ago. No abdominal pain. No fevers. No altered mental status. No focal motor deficits. No chest pain. He does feel somewhat short of breath. Daughter also reports he is been being treated for UTI. She also reports they took him off one of his diuretics. Review of Systems Narrative: Constitutional symptoms: Negative except as documented in HPI. Skin symptoms: Negative except as documented in HPI. Eye symptoms: Negative except as documented in HPI. ENMT symptoms: Negative except as documented in HPI. Respiratory symptoms: Negative except as documented in HPI. Cardiovascular symptoms: Negative except as documented in HPI. Gastrointestinal symptoms: Negative except as documented in HPI. Genitourinary symptoms: Negative except as documented in HPI. Musculoskeletal symptoms: Negative except as documented in HPI. Neurologic symptoms: Negative except as documented in HPI. Psychiatric symptoms: Negative except as documented in HPI. Endocrine symptoms: Negative except as documented in HPI. [facility] ED PFSH: Medical History Acute hepatic failure Abdominal ascites Smoker Colitis Low oxygen saturation Enteropathy Smoking addiction Alcohol use disorder Thrombocytopenia Liver cirrhosis Hematuria Ascites due to alcoholic cirrhosis Abdominal pain 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 History of colon polyps Rectal polyp 10 and 15 cm, cecum biopsy Sigmoid colon polyp Seasonal allergies Splenomegaly Enterocolitis 2017 Surgical History Status post colonoscopy with polypectomy H/O esophagogastroduodenoscopy Vasectomy status H/O left inguinal hernia repair Family History Denies family history of Cancer Social History Smoking and tobacco/nicotine status: current every day tobacco/nicotine user cigarettes [ Other cigarette details: At least 21-aglv-kgtp history, currently cutting down to several cigarettes] Alcohol intake: current Substance/Drug Use: never Lives independently: Yes Housing: House Marital status: Physical Exam Narrative: EXAM NARRATIVE: General: Alert, no acute distress. Sallow appearing skin. Skin: Warm, dry. Head: Normocephalic, atraumatic. Neck: Supple, trachea midline. Eye: Extraocular movements are intact. Ears, nose, mouth and throat: mucosa moist. Cardiovascular: Regular, Normal peripheral perfusion. Respiratory: Lungs are clear to auscultation, respirations are non-labored, breath sounds are equal, Symmetrical chest wall expansion. Gastrointestinal: Soft, Nontender, mild distention. He has a umbilical hernia. Musculoskeletal: Normal ROM, no deformity. Neurological: Alert and oriented, No focal neurological deficit observed. Psychiatric: Cooperative, appropriate mood & affect. Course Vital Signs: Vital signs: Vital Signs Temperature 98.1 F 12/29/23 18:19 Pulse Rate 100 12/29/23 18:19 Respiratory Rate 18 12/29/23 18:19 Blood Pressure 101/66 12/29/23 18:19 Pulse Oximetry 100 12/29/23 18:19 MDM - Weakness Medical Decision Making Medical decision making: Differential diagnosis for patient presenting with generalized weakness including but not limited to and based on the above HPI, review of systems and physical exam: Sepsis. Dehydration. Renal failure. Electrolyte abnormalities. Anemia. Congestive heart failure. Hypotension. Coronary syndrome. Hepatitis. Cirrhosis. Infections such as pneumonia, urinary tract infection, [place] illness, Cellulitis, Viral infections including influenza and Covid-19. Workup: labwork and lab/exam driven imaging ordered to evaluate, rule in and rule out above pathologies. Lab Review: Laboratory results were reviewed and interpreted by myself the emergency room physician. Patient has no leukocytosis and no anemia. Mild thrombocytopenia. BUN and creatinine are stable at 10 and 1.5. Sodium is significantly lower than it has been at 122. He had been trending down to 125 recently. Had been normal prior to that. Urinalysis is currently negative for infection. I reviewed the patient's medical record. Reexamination: Patient remained stable. No increased work of breathing. No altered mental status. No focal motor deficits. Consultation: I spoke with Dr. Cook who is on-call for the hospitalist service who agrees to admission. Assessment and plan: Hyponatremia Cirrhosis Anemia -I discussed the patient with the hospitalist on-call who is admitting the patient. - Discussed findings and plan with patient. Answered any questions. - All laboratory values were reviewed and interpreted personally by myself, the ER physician - All imaging was reviewed and interpreted personally by myself, the ER physician. - Evaluation and treatment of this problem were appropriate in the emergency setting Lab Data 12/29/23 19:30 12/29/23 19:30 Laboratory Results WBC 7.31 10^3/uL (3.29-11.43) 12/29/23 19: RBC 3.35 10^6/uL (3.85-5.65) L 12/29/23 19: Hgb 12.20 g/dL (11.27-16.99) 12/29/23 19: Hct 33.1 % (37-53) L 12/29/23 19: MCV 98.8 fl (82-101) 12/29/23 19: MCH 36.4 pg (27-33) H 12/29/23 19: MCHC 36.9 g/dL (30-55) 12/29/23 19:30 RDW 16.2 % (12.1-15.1) H 12/29/23 19: Plt Count 149 10^3/cmm (157-399) L 12/29/23 19: MPV 10.4 fL (7.4-10.4) 12/29/23 19: Neut % (Auto) 82.9 % 12/29/23 19: Lymph % (Auto) 5.5 % 12/29/23 19: [place] % (Auto) 10.4 % 12/29/23 19:30 Eos % (Auto) 0.5 % 12/29/23 19: Baso % (Auto) 0.3 % 12/29/23: Neut # (Auto) 6.06 10^3/uL (1.8-7.7) 12/29/23 19: Lymph # (Auto) 0.4 10^3/uL (0.8-4.8) L 12/29/23 19:30 [place] # (Auto) 0.8 10^3/uL (0.2-0.9) 12/29/23 19:30 Eos # (Auto) 0.0 10^3/uL (0.0-0.8) 12/29/23 19:30 Baso # (Auto) 0.0 10^3/uL (0.0-0.1) 12/29/23 19:30 Nucleated RBC % (auto) 0 % 12/29/23 19:30 Nucleated RBCs # 0.0 /100WBC 12/29/23 19:30 PT 17.80 SECONDS (12.1-14.9) H 12/29/23 19:30 INR 1.42 (0.8-1.2) H 12/29/23 19:30 APTT 33.9 SECONDS (23.9-36.7) 12/29/23 19:30 Sodium 122 mmol/L (136-145) L 12/29/23 19:30 Potassium 4.6 mmol/L (3.5-5.1) 12/29/23 19:30 Chloride 87 mmol/L (98-107) L 12/29/23 19:30 Carbon Dioxide 21 mmol/L (22-29) L 12/29/23 19:30 Anion Gap 18.6 (5-19) 12/29/23 19:30 BUN 10 mg/dL (6-20) 12/29/23 19:30 Creatinine 1.5 mg/dL (0.7-1.2) H 12/29/23 19:30 GFR Calculation 49.7 mL/min (90-130) L 12/29/23 19:30 Glucose 168 mg/dL (65-115) H 12/29/23 19:30 Calculated Osmolality 257 mOsm/kg (285-295) L 12/29/23 19:30 Calcium 8.8 mg/dL (8.5-10.5) 12/29/23 19:30 Total Bilirubin 3.2 mg/dL (0.15-1.2) H 12/29/23 19:30 AST 60 U/L (0-40) H 12/29/23 19:30 ALT 37 U/L (0-41) 12/29/23 19:30 Alkaline Phosphatase 159 U/L (40-130) H 12/29/23 19:30 Ammonia 25 umol/L (16-60) 12/29/23 19:30 Total Protein 7.7 g/dL (6.6-8.7) 12/29/23 19:30 Albumin 4.2 g/dL (3.5-5.2) 12/29/23 19:30 Globulin 3.5 g/dL (1.3-4.6) 12/29/23 19:30 Urine Color [place] (Yellow) A 12/29/23 19:44 Urine Appearance Clear (CLEAR) 12/29/23 19:44 Urine pH 5.0 (5-7) 12/29/23 19:44 Ur Specific [place] 1.028 (1.005-1.030) 12/29/23 19:44 Urine Protein 1+ (Negative) A 12/29/23 19:44 Urine Glucose (UA) Negative (Normal) 12/29/23 19:44 Urine Ketones Trace (Negative) 12/29/23 19:44 Urine Blood Negative (Negative) 12/29/23 19:44 Urine Nitrate Negative (Negative) 12/29/23 19:44 Urine Bilirubin 1+ (Negative) H 12/29/23 19:44 Urine Urobilinogen 1.0 mg/dL (Negative) 12/29/23 19:44 Ur Leukocyte Esterase Trace (Negative) A 12/29/23 19:44 Urine RBC 3-5 /hpf (0-2) 12/29/23 19:44 Urine WBC 0-5 /hpf (0-5) 12/29/23 19:44 Ur Squamous Epith Cells 0-5 /hpf (0-5) 12/29/23 19:44 Amorphous Sediment Not Reportable 12/29/23 19:44 Urine Bacteria None seen /hpf (NONE) 12/29/23 19:44 Hyaline Casts 34.33 /lpf 12/29/23 19:44 Urine Mucus 2+ /hpf 12/29/23 19:44 No radiology studies performed this visit Discharge Plan Discharge Patient Disposition: Admitted As Inpatient Clinical Impression: Acute hyponatremia, Cirrhosis, Weakness Condition: Stable Coding Level of Care Code ED Perch Machine Inspector for Jess Fwd Related Data Home Medications Medication Instructions Recorded Confirmed allopurinol 300 mg tablet 300 mg PO DAILY 06/29/23 12/28/23 pantoprazole 40 mg tablet,delayed 40 mg PO DAILY 06/29/23 12/28/23 release spironolactone 25 mg tablet 50 mg PO DAILY 06/29/23 12/28/23 ondansetron HCl 4 mg tablet 4 mg PO Q8H PRN Nausea And Vomiting 11/30/23 12/28/23 rifaximin 200 mg tablet (Xifaxan) 200 mg PO BID 12/13/23 12/28/23 Previous Rx's Medication Instructions Recorded tramadol 50 mg tablet 50 mg PO Q8H PRN pain #14 tabs 12/11/23 Allergies Allergy/AdvReac Type Severity Reaction Status Date / Time No Known Allergies Allergy Verified 12/29/23 18:23
[2023-12-29 19:40] LABS: Basophils % 0.3 %; Eosinophils % 0.5 %; Hematocrit 33.1 % (37-53); Lymphocytes # 0.4 10^3/uL (0.8-4.8); Lymphocytes % 5.5 %; Mean Corpuscular HGB Conc 36.9 g/dL (30-55); Mean Corpuscular Hemoglobin 36.4 pg (27-33); Mean Corpuscular Volume 98.8 fl (82-101); Mean Platelet Volume 10.4 fL (7.4-10.4); Monocytes # 0.8 10^3/uL (0.2-0.9); Monocytes % 10.4 %; Neutrophils # 6.06 10^3/uL (1.8-7.7); Neutrophils % 82.9 %; Nucleated Red Blood Cells % 0 %; Platelet Count 149 10^3/cmm (157-399); Red Blood Count 3.35 10^6/uL (3.85-5.65); Red Cell Distribution Width 16.2 % (12.1-15.1); White Blood Count 7.31 10^3/uL (3.29-11.43)
[2023-12-29 19:50] LABS: INR 1.42 (0.8-1.2)
[2023-12-29 19:51] LABS: Partial Thromboplastin Time 33.9 SECONDS (23.9-36.7)
[2023-12-29 19:53] LABS: Alanine Aminotransferase 37 U/L (0-41); Albumin Level 4.2 g/dL (3.5-5.2); Alkaline Phosphatase 159 U/L (40-130); Anion Gap 18.6 (5-19); Aspartate Amino Transferase 60 U/L (0-40); Blood Urea Nitrogen 10 mg/dL (6-20); Calcium 8.8 mg/dL (8.5-10.5); Carbon Dioxide 21 mmol/L (22-29); Chloride 87 mmol/L (98-107); Creatinine Clr Calc Pharmacy 57.5117; Globulin 3.5 g/dL (1.3-4.6); Glomerular Filtration Rate 49.7 mL/min (90-130); Glucose 168 mg/dL (65-115); Osmolality Calculated 257 mOsm/kg (285-295); Potassium 4.6 mmol/L (3.5-5.1); Sodium 122 mmol/L (136-145); Total Bilirubin 3.2 mg/dL (0.15-1.2); Total Protein 7.7 g/dL (6.6-8.7)
[2023-12-29 20:02] LABS: Bilirubin Urine 1+ (Negative); Blood Urine Negative (Negative); Glucose Urine UA Negative (Normal); Ketones Urine Trace (Negative); Leukocyte Esterase Urine Trace (Negative); Nitrate Urine Negative (Negative); Protein Urine 1+ (Negative); Specific Gravity, Urine 1.028 (1.005-1.030); Urine Appearance Clear (CLEAR)
[2023-12-29 20:03] LABS: Ammonia 25 umol/L (16-60)
[2023-12-29 20:07] LABS: Bacteria Urine None Seen /hpf; Hyaline Casts Urine 34.33 /lpf; Squamous Epithelial Cell Urine 0-5 /hpf (0-5); Universal Test for UA Present (0); WBC Urine 0-5 /hpf (0-5)
[2023-12-29 20:23] LABS: Urine Color Orange (Yellow)
[2023-12-29 20:24] LABS: Mucus Urine 2+ /hpf
--- NOTE | 2023-12-29 20:35 | P.HP_ITS ---
Providers/Chief Complaint 2 Primary Care Provider: Alia Sanchez MD Chief Complaint: lethargic, sodium levels low. dizzy History of Present Illness Chase Rivero is a 48 year old male with a past medical history significant for decompensated liver cirrhosis with ascites and esophageal varices, alcohol use disorder with abuse, splenomegaly, tobacco use disorder, and multiple other comorbidities who presents to the emergency department with generalized weakness, fatigue, inability to walk. Patient is stating that he had 9 L of peritoneal fluid removed yesterday via paracentesis. His sodium has dropped 122. He is not able to function at all at home hence decided to come to the hospital for further evaluation. Patient has follow-up with GI service at [facility], he is being evaluated [facility] every 2 weeks he comes here for as needed paracentesis, recently he was put on ciprofloxacin for UTI abnormal UA however patient is denying any signs or symptoms of UTI. Patient is stating that he always feels bad after paracentesis but this time it has gotten worse that prompted his visit to the ER. Review of Systems 2 Eyes: Denies: change in vision ENMT: Denies: throat pain Card: Denies: chest pain Resp: Denies: dyspnea GI: Reports: nausea Neuro: Reports: weakness in extremities, difficulty walking and frequent falls Medications/Allergies Home Medications Medication Instructions Recorded Confirmed Last Taken Type allopurinol 300 mg tablet 300 mg PO DAILY 06/29/23 12/28/23 12/27/23 History pantoprazole 40 mg tablet,delayed 40 mg PO DAILY 06/29/23 12/28/23 12/27/23 History release spironolactone 25 mg tablet 50 mg PO DAILY 06/29/23 12/28/23 12/27/23 History ondansetron HCl 4 mg tablet 4 mg PO Q8H PRN Nausea And Vomiting 11/30/23 12/28/23 12/13/23 History tramadol 50 mg tablet 50 mg PO Q8H PRN pain #14 tabs 12/11/23 12/28/23 12/27/23 Rx rifaximin 200 mg tablet (Xifaxan) 200 mg PO BID 12/13/23 12/28/23 12/27/23 History Allergies Allergy/AdvReac Type Severity Reaction Status Date / Time No Known Allergies Allergy Verified 12/29/23 18:23 PFSH Acute 2 PFSH: Medical History Acute hepatic failure Abdominal ascites Smoker Colitis Low oxygen saturation Enteropathy Smoking addiction Alcohol use disorder Thrombocytopenia Liver cirrhosis Hematuria Ascites due to alcoholic cirrhosis Abdominal pain 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 History of colon polyps Rectal polyp 10 and 15 cm, cecum biopsy Sigmoid colon polyp Seasonal allergies Splenomegaly Enterocolitis 2016 Surgical History Status post colonoscopy with polypectomy H/O esophagogastroduodenoscopy Vasectomy status H/O left inguinal hernia repair Family History Denies family history of Cancer Social History Smoking and tobacco/nicotine status: current every day tobacco/nicotine user cigarettes [ Other cigarette details: At least [id number] history, currently cutting down to several cigarettes] Alcohol intake: current Substance/Drug Use: never Lives independently: Yes Housing: House Marital status: Vitals/I&O/Wt Last Vital Signs Temp 98.1 F 12/29/23 18:19 Pulse 100 12/29/23 18:19 Resp 18 12/29/23 18:19 BP 101/66 12/29/23 18:19 Pulse Ox 100 12/29/23 18:19 Weight last 48 hrs Weight 68.039 kg Physical Exam 2 Narrative: Awake and alert Abdomen soft Nondistended Umbilical hernia GCS 15 Nonfocal neuroexam No asterixis Pleasant and cooperative Nonfocal exam Currently on room air Hemodynamically stable Data 12/29/23 19:30 12/29/23 19:30 A&P Assessment and plan (1) Cirrhosis: (2) Liver cirrhosis: Qualifiers: Ascites presence: with ascites Hepatic cirrhosis type: unspecified hepatic cirrhosis Qualified Code(s): K74.60 - Unspecified cirrhosis of liver; R18.8 - Other ascites (3) Acute hyponatremia: (4) Weakness: Plan Acute hyponatremia Secondary to recent paracentesis Patient also is at risk of third spacing I will only give him fluid challenge with 900 mL IV fluid in terms of maintenance rate send 5 mL/h which I will discontinue at 9 AM in the morning Check sodium level Hold diuretics, as per the patient he has been taken off Lasix and spironolactone because of low blood pressure and hyponatremia Patient has been evaluated by [facility] service for liver transplant currently waiting for [place] approval process Chronic kidney disease Creatinine seems around baseline however there was concern for hepatorenal syndrome in the past which improved with use of IV fluid hydration and albumin I will keep him on cardiac diet Hold diuretics He has chronic stable thrombocytopenia related to portal hypertension Abnormal UA I will keep him on ceftriaxone 2 g daily considering recent paracentesis and concern for UTI Follows up with [place] [facility] Full code Attestations 2 Medical Necessity Statement*: Anticipating discharge within 48 hours Diagnoses Cirrhosis K74.60 Acute hyponatremia E87.1 Weakness R53.1
[2023-12-29 21:43] VITALS: BP 105/62; PULSE 95; RESP 16; O2SAT 97
[2023-12-29 21:46] VITALS: BP 109/66; PULSE 94; O2SAT 96
[2023-12-29 22:05] VITALS: BP 105/66; PULSE 85; RESP 16; TEMP 36.9; O2SAT 98
[2023-12-29] MEDS: sodium chloride 0.9% 1,000 ML 75 ML IV (22:52)
[2023-12-29] MEDS: cefTRIAXone 2,000 mg SDV 2000 MG IVP (22:59)
[2023-12-29 23:18] VITALS: RESP 16
[2023-12-29] MEDS: oxyCODONE 5 mg IR Tab/Cap PO (23:18)
[2023-12-29] MEDS: rifaximin 200 mg Tablet PO (23:18)
[2023-12-29 23:58] VITALS: BP 109/66; PULSE 83; RESP 18; TEMP 36.9; O2SAT 99
[2023-12-30] VITALS (37 sets, daily range): BP systolic 66–130; BP diastolic 30–80; PULSE 64–112; RESP 12–22; TEMP 36.7–36.8; O2SAT 91–98
[2023-12-30 05:10] LABS: Basophils % 0.3 %; Eosinophils # 0.2 10^3/uL (0.0-0.8); Eosinophils % 2.1 %; Hematocrit 28.8 % (37-53); Lymphocytes # 0.8 10^3/uL (0.8-4.8); Lymphocytes % 10.5 %; Mean Corpuscular HGB Conc 37.2 g/dL (30-55); Mean Corpuscular Hemoglobin 36.6 pg (27-33); Mean Corpuscular Volume 98.6 fl (82-101); Mean Platelet Volume 10.7 fL (7.4-10.4); Monocytes # 1.3 10^3/uL (0.2-0.9); Monocytes % 16.8 %; Neutrophils # 5.27 10^3/uL (1.8-7.7); Neutrophils % 69.9 %; Nucleated Red Blood Cells % 0 %; Platelet Count 134 10^3/cmm (157-399); Red Blood Count 2.92 10^6/uL (3.85-5.65); Red Cell Distribution Width 16.1 % (12.1-15.1); White Blood Count 7.54 10^3/uL (3.29-11.43)
[2023-12-30 05:29] LABS: Alanine Aminotransferase 29 U/L (0-41); Albumin Level 3.7 g/dL (3.5-5.2); Alkaline Phosphatase 155 U/L (40-130); Anion Gap 15.4 (5-19); Aspartate Amino Transferase 47 U/L (0-40); Blood Urea Nitrogen 10 mg/dL (6-20); Calcium 8.3 mg/dL (8.5-10.5); Carbon Dioxide 23 mmol/L (22-29); Chloride 91 mmol/L (98-107); Creatinine Clr Calc Pharmacy 61.7016; Globulin 2.6 g/dL (1.3-4.6); Glomerular Filtration Rate 53.9 mL/min (90-130); Glucose 134 mg/dL (65-115); Magnesium 1.8 mg/dL (1.7-2.3); Osmolality Calculated 261 mOsm/kg (285-295); Potassium 4.4 mmol/L (3.5-5.1); Sodium 125 mmol/L (136-145); Total Bilirubin 1.8 mg/dL (0.15-1.2); Total Protein 6.3 g/dL (6.6-8.7)
[2023-12-30] MEDS: acetaminophen 500 mg Tablet PO (08:00)
[2023-12-30] MEDS: rifaximin 200 mg Tablet PO ×2 (08:00→18:34)
[2023-12-30] MEDS: allopurinol 300 mg Tablet PO (08:00)
[2023-12-30] MEDS: TRAMadol 50 mg Tablet PO (08:01)
--- NOTE | 2023-12-30 09:01 | XRR_ITS ---
PROCEDURE INFORMATION: Exam: XR Chest Exam date and time: 12/30/2023 9:55 AM Age: 48 years old Clinical indication: Other: Feeling unwell TECHNIQUE: Imaging protocol: Radiologic exam of the chest. Views: 1 view. COMPARISON: CR XR chest 1V portable [id number] 10/20/2023 11:46 PM FINDINGS: Lungs: Unremarkable. No consolidation. Pleural spaces: Unremarkable. No pleural effusion. No pneumothorax. Heart/Mediastinum: Unremarkable. No cardiomegaly. Bones/joints: Unremarkable. XR/XR chest 1V portable [id number] IMPRESSION: No acute findings.
--- NOTE | 2023-12-30 09:01 | XRR_ITS ---
PROCEDURE INFORMATION: Exam: XR Abdomen Exam date and time: 12/30/2023 9:55 AM Age: 48 years old Clinical indication: Other: Ascites; Prior surgery; Surgery date: 6+ months; Surgery type: Left inguinal hernia repair; Additional info: Ascities TECHNIQUE: Imaging protocol: Radiologic exam of the abdomen. Views: Frontal supine view of the abdomen. 1 View. COMPARISON: CT abdomen pelvis w con* [id number] 12/11/2023 10:05 PM FINDINGS: Gastrointestinal tract: Normal. No bowel dilation. Intraperitoneal space: Significant ascites Bones/joints: Unremarkable. XR/XR KUB portable [id number] IMPRESSION: 1. No bowel obstruction 2. Ascites
[2023-12-30 09:32] LABS: Erythrocyte Sedimentation Rate 1 mm/hr (0-10)
[2023-12-30 09:55] LABS: Procalcitonin 0.14 ng/mL (0-0.5); Thyroid Stimulating Hormone 1.73 uIU/mL (0.27-4.20)
[2023-12-30 10:06] LABS: C Reactive Protein 7.8 mg/L (0.0-4.9); Sodium 122 mmol/L (136-145)
[2023-12-30] MEDS: albumin 12.5 GM/250 ML VIAL IV (10:41)
[2023-12-30] MEDS: oxyCODONE 5 mg IR Tab/Cap PO (10:41)
[2023-12-30] MEDS: sodium chloride 0.9% 250 ML IV (11:10)
[2023-12-30] MEDS: sodium chloride 1 gm Tablet PO ×3 (11:31→22:16)
--- NOTE | 2023-12-30 13:06 | P.CONIM_ITS ---
Providers/Reason For Consult 2 Consulting Physician/Specialty*: kommana pending/Nephrology Reason for Consult*: Hyponatremia and LAQUITA Attending Physician: Fortino Wagoner MD Primary Care Provider: Alia Sanchez MD History of Present Illness History of Present Illness Chase Rivero is a 48 year old male Patient is a 48-year-old male with past medical history of decompensated alcoholic liver cirrhosis, recurrent ascites and requiring paracentesis every 2 weeks, esophageal varices, splenomegaly, presented to the emergency department due to generalized weakness fatigue. He underwent paracentesis with removal of 9 L on 12/28/2023. Lab data in the ED is significant for sodium of 122, sodium improved to 125 last night but has dropped again to 122 currently. Patient denies any complaints. Urine sodium and urine osmolality are pending. Review of Systems 2 Narrative: negative Medications/Allergies Home Medications Medication Instructions Recorded Confirmed Last Taken Type allopurinol 300 mg tablet 300 mg PO DAILY 06/29/23 12/29/23 12/29/23 08:00 History pantoprazole 40 mg tablet,delayed 40 mg PO DAILY 06/29/23 12/29/23 12/29/23 08:00 History release ondansetron HCl 4 mg tablet 4 mg PO Q8H PRN Nausea And Vomiting 11/30/23 12/29/23 12/13/23 History tramadol 50 mg tablet 50 mg PO Q8H PRN pain #14 tabs 12/11/23 12/29/23 12/27/23 Rx rifaximin 200 mg tablet (Xifaxan) 200 mg PO BID 12/13/23 12/29/23 12/29/23 08:00 History ciprofloxacin HCl 500 mg tablet 500 mg PO BID 12/29/23 12/29/23 12/29/23 08:00 History polyethylene glycol 3350 17 gram 17 g PO DAILY PRN Constipation 12/29/23 12/29/23 Unknown History oral powder packet (Miralax) Allergies Allergy/AdvReac Type Severity Reaction Status Date / Time No Known Allergies Allergy Verified 12/29/23 18:23 Current Medications Generic Name Dose Route Start Last Admin Trade Name Freq PRN Reason Stop Dose Admin Acetaminophen 500 mg 12/29/23 21:57 12/30/23 08:00 Acetaminophen 500 Mg Tablet PO 500 mg Q4H PRN Administration fever Allopurinol 300 mg 12/30/23 09:00 12/30/23 08:00 Allopurinol 300 Mg Tablet PO 300 mg DAILY CHRIS Administration Ceftriaxone Sodium 2,000 mg 12/29/23 21:57 12/29/23 22:59 Ceftriaxone 2,000 Mg Sdv IVP 2,000 mg Q24H CHRIS Administration Protocol Oxycodone HCl 5 mg 12/29/23 21:57 12/30/23 10:41 Oxycodone 5 Mg Ir Tab/Cap PO 5 mg Q4H PRN Administration MODERATE PAIN Rifaximin 200 mg 12/30/23 09:00 12/30/23 08:00 Rifaximin 200 Mg Tablet PO 200 mg BID CHRIS Administration Sodium Chloride 1 gm 12/30/23 11:15 12/30/23 11:31 Sodium Chloride 1 Gm Tablet PO 1 gm BID CHRIS Administration Tramadol HCl 50 mg 12/29/23 21:57 12/30/23 08:01 Tramadol 50 Mg Tablet PO 50 mg Q8H PRN Administration MILD PAIN PFSH Acute 2 PFSH: Medical History Acute hepatic failure Abdominal ascites Smoker Colitis Low oxygen saturation Enteropathy Smoking addiction Alcohol use disorder Thrombocytopenia Liver cirrhosis Hematuria Ascites due to alcoholic cirrhosis Abdominal pain 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 History of colon polyps Rectal polyp 10 and 15 cm, cecum biopsy Sigmoid colon polyp Seasonal allergies Splenomegaly Enterocolitis 2016 Surgical History Status post colonoscopy with polypectomy H/O esophagogastroduodenoscopy Vasectomy status H/O left inguinal hernia repair Family History Denies family history of Cancer Social History Smoking and tobacco/nicotine status: current every day tobacco/nicotine user cigarettes [ Other cigarette details: At least 96-awov-ikus history, currently cutting down to several cigarettes] Alcohol intake: current Substance/Drug Use: never Lives independently: Yes Housing: House Marital status: Vitals/I&O/Wt Last Vital Signs Temp 98.2 F 12/30/23 11: Pulse 93 12/30/23 11:24 Resp 16 12/30/23 10:41 BP 101/63 12/30/23 11:24 Pulse Ox 96 12/30/23 11:24 O2 Del Method Room Air 12/30/23 11:24 12/29/23 12/30/23 12/30/23 22:59 06:59 14:59 Intake Total 480 / 480 1181.25 / 1181.25 Output Total 100 / 100 Balance 480 / 480 1081.25 / 1081.25 Weight last 48 hrs Weight 68.266 kg Weight 70.307 kg Weight 68.039 kg Physical Exam 2 Narrative: Awake alert, no distress HEENT S1-S2 regular rate and rhythm per report Lungs clear No pedal edema Data 12/30/23 04:38 12/30/23 12:57 A&P Assessment and plan (1) Acute hyponatremia: 1. Hyponatremia: Acute on chronic, sodium 122 on presentation 118 currently. Urine sodium and urine osmolality pending. Would give a trial of normal saline- at 75 cc an hour, check sodium every 4 hours. Placed on 1200 mL po with 2. Fluid restriction 2. Acute kidney injury, baseline was 0.8 about a month ago, now has a creatinine of 1.4 likely hypovolemic, HRS possible, noted recent paracentesis-2 days ago. Will give IV albumin and fluids. And monitor renal function closely. Volume status and electrolytes stable, checking urine electrolytes and renal ultrasound 3. Alcoholic liver cirrhosis with recurrent paracentesis, status post 9 L paracentesis 2 days ago 4.UTI; On Ceftriaxone 5.h/o gout patient evaluated using audiovisual cart. Time spent 40 minutes. (2) Acute kidney injury: Consult Attestations 2 Medical Necessity Statement: per [facility] team Coding Level of Care Code Acute Code for [facility] Fwd Diagnoses Acute hyponatremia E87.1 Acute kidney injury N17.9
[2023-12-30 13:42] LABS: Sodium 118 mmol/L (136-145)
--- NOTE | 2023-12-30 13:49 | PC.NURSE ---
Patient's sodium came back 118. Dr. Wagoner notified and wants patient sent to ICU for hypertonic gtt.
--- NOTE | 2023-12-30 14:43 | P.PN_ITS ---
Vitals/I&O/Wt Last Vital Signs Temp 98.2 F 12/30/23 11:24 Pulse 93 12/30/23 11:24 Resp 16 12/30/23 10:41 BP 101/63 12/30/23 11:24 Pulse Ox 96 12/30/23 11:24 O2 Del Method Room Air 12/30/23 11:24 12/29/23 12/30/23 12/30/23 22:59 06:59 14:59 Intake Total 480 / 480 1421.25 / 1421.25 Output Total 100 / 100 Balance 480 / 480 1321.25 / 1321.25 Weight last 48 hrs Weight 68.266 kg Weight 70.307 kg Weight 68.039 kg Physical Exam 2 Const: COMMON NORMALS: no acute distress and patient oriented x3 Resp: COMMON NORMALS: normal respiratory effort, No retractions, No use of accessory muscles and clear to auscultation bilaterally AUSCULTATION: clear to auscultation bilaterally Cardio: COMMON NORMALS: regular rate, regular rhythm, S1 normal heart sound present and S2 normal heart sound present RATE: regular rate RHYTHM: r egular rhythm HEART SOUNDS: S1 normal heart sound present and S2 normal heart sound present GI: OTHER: Abdomen soft, slightly distended, good bowel sounds, no guarding, no rebound, rigidity, does have an umbilical hernia in place, which is reducible, umbilical hernia site, has overlying skin changes and a scab, which patient states chronic, he is to have severe ascites, umbilical hernia, or prominent, and he would have a tendency to scratch at it Extremity: COMMON NORMALS: no pedal edema Neuro: COMMON NORMALS: patient oriented x3 Psych: COMMON NORMALS: mental status grossly normal Skin: NARRATIVE SKIN EXAM: Has evidence of fat pad loss under bilateral ribs, bilateral clavicles, bilateral thighs,, moderate protein, nutrition Data 12/30/23 04:38 12/30/23 12:57 A&P Assessment and plan (1) Cirrhosis: (2) Liver cirrhosis: Qualifiers: Ascites presence: with ascites Hepatic cirrhosis type: unspecified hepatic cirrhosis Qualified Code(s): K74.60 - Unspecified cirrhosis of liver; R18.8 - Other ascites (3) Acute hyponatremia: (4) Weakness: (5) Physical deconditioning: (6) Protein calorie malnutrition: Plan Acute hyponatremia Secondary to recent paracentesis Third spacing Status post fluid bolus normal saline, serum sodium up to 122 Added salt tablets Spoke to nephrology, nephrology consult However serum sodium has dropped to 118 Spoke to nephrology again, will move down to ICU, started on normal saline at 75 cc an hour recheck serum sodium in another 4 hours, if sodium remains low, will consider hypertonic saline Check sodium level every 4 hours Urine sodium studies Restrict fluid intake Neurochecks, seizure precautions Hold diuretics, as per the patient he has been taken off Lasix and spironolactone because of low blood pressure and hyponatremia Patient has been evaluated by [facility] service for liver transplant currently waiting for [place] approval process Chronic kidney disease Creatinine seems around baseline however there was concern for hepatorenal syndrome in the past which improved with use of IV fluid hydration and albumin Ascites -Feeling fatigue, malaise -Pro-Pieter within normal limits, CRP slightly elevated -Prior paracentesis was yellow, cloudy, 69 WBCs, 72% PMN cells -Given recurrent ascites, will start him on Rocephin for concern for SBP I will keep him on cardiac diet Hold diuretics He has chronic stable thrombocytopenia related to portal hypertension Abnormal UA, concern for UTI, continue Rocephin Liver cirrhosis -History of esophageal varices Follows up with [facility] [facility] Full code SCDs for DVT prophylaxis Attestations 2 Medical Necessity Statement*: Patient requires hospitalization, inpatient, greater than 2 midnights, acute hyponatremia, required ICU admission, for dropping serum sodium level 118 Diagnoses Cirrhosis K74.60 Acute hyponatremia E87.1 Weakness R53.1 Physical deconditioning R53.81 Protein calorie malnutrition E46
[2023-12-30] MEDS: sodium chloride 0.9% 1,000 ML 75 ML IV (15:11)
--- NOTE | 2023-12-30 15:11 | PC.NURSE ---
Sodium chloride 0.9% running at the time of arrival to ICU Apr updated to reflect infusion.
[2023-12-30 16:22] LABS: Sodium 122 mmol/L (136-145)
[2023-12-30 16:51] LABS: Chloride Urine Random < 10 mmol/L; Urine Random Sodium < 10 mmol/L
[2023-12-30] MEDS: ondansetron 2 mg/ML SDV 2 mL 4 MG IVP ×2 (18:05→23:10)
--- NOTE | 2023-12-30 18:13 | PC.NURSE ---
Patient experiencing nausea at this time, Zofran given per MAR, unable to take rifaximin and sodium tablet at this time. Will reassess effectiveness of zofran and administer 1800 meds when appropriate.
[2023-12-30 20:46] LABS: Sodium 119 mmol/L (136-145)
[2023-12-30] MEDS: cefTRIAXone 2,000 mg SDV 2000 MG IVP (22:15)
[2023-12-30] MEDS: norepinephrine 4 MG/250 ML BAG 37.5 MG IV (23:13)
--- NOTE | 2023-12-30 23:23 | PC.NURSE ---
Levophed During central line placement, patient's blood pressure dropped to 78/50 with a MAP of 59. Verbal order received from Dr. Cook for levophed.
--- NOTE | 2023-12-30 23:40 | PM.ACPR ---
Acute Procedures Central Line Placement: Right IJ: Time out performed: Yes Patient placed on monitor/pulse ox: Yes MD prep: mask, gown and gloves Central line prep: Chlorhexidine scrub Local anesthesia used: lidocaine 1% Amount of anesthesia used (ml): 5 Ultrasound used for placement: Yes Central line lumen inserted: triple Post procedure: sutured in place, good blood return, all ports aspirated, flushed, capped and sterile dressing applied Post procedure x-ray: tip of catheter in good position and no pneumothorax seen Patient tolerated procedure: well Complications: none Additional comments: Patient was needing hypertonic saline consent was taken from the patient, We were meeting resistance during passage of guidewire hence seeked help from ER physician Dr. Mason who also met resistance but was able to pass the guidewire and the dilator without any complications,
[2023-12-31] VITALS (43 sets, daily range): BP systolic 96–122; BP diastolic 60–93; PULSE 65–106; RESP 11–20; TEMP 36.2–36.8; O2SAT 92–100
--- NOTE | 2023-12-31 00:24 | XRR_ITS ---
PROCEDURE INFORMATION: Exam: XR Chest Exam date and time: 12/31/2023 12:39 AM Age: 48 years old Clinical indication: Other vascular access device placement or adjustment; Central line, non-tunnelled; Patient HX: Check S/P central line placement TECHNIQUE: Imaging protocol: Radiologic exam of the chest. Views: 1 view. COMPARISON: CR (CHEST, ) 12/30/2023 9:55 AM FINDINGS: Tubes, catheters and devices: Right internal jugular central venous catheter tip is in right atrium. Lungs: Unremarkable. No consolidation. Pleural spaces: Unremarkable. No pleural effusion. No pneumothorax. Heart/Mediastinum: Unremarkable. No cardiomegaly. Bones/joints: No acute findings. XR/XR chest 1V [id number] IMPRESSION: No acute findings.
[2023-12-31] MEDS: sodium chloride 3% 500 ML 25 ML IV (02:01)
--- NOTE | 2023-12-31 02:25 | PC.NURSE ---
Central line placement. Dr. Cook into place central line attempted right groin and right ij site 2 kits used and extra quide wire without success. Patient with hypotensive episode during attempt. ns bolus given and levophed started via Dr. Cook's request. Dr. Mason into assist placed right IJ tripple lumen central catheter. Xray completed- reviewed placement by Dr. Cook- needs to be pulled back a little but okay to use as is MD opted to leave catheter in current position and told this nurse okay to use.
[2023-12-31] MEDS: oxyCODONE 5 mg IR Tab/Cap PO ×3 (02:46→17:38)
--- NOTE | 2023-12-31 03:40 | PC.NURSE ---
Right Internal Jugular Tripple lumen central catheter placed by Dr. Mason.
[2023-12-31 04:06] LABS: Basophils % 0.2 %; Eosinophils # 0.1 10^3/uL (0.0-0.8); Eosinophils % 0.9 %; Hematocrit 27.4 % (37-53); Lymphocytes # 0.4 10^3/uL (0.8-4.8); Lymphocytes % 5.7 %; Mean Corpuscular HGB Conc 36.9 g/dL (30-55); Mean Corpuscular Hemoglobin 36.5 pg (27-33); Mean Corpuscular Volume 98.9 fl (82-101); Mean Platelet Volume 10.5 fL (7.4-10.4); Monocytes # 0.9 10^3/uL (0.2-0.9); Monocytes % 13.4 %; Neutrophils # 5.03 10^3/uL (1.8-7.7); Neutrophils % 79.5 %; Nucleated Red Blood Cells % 0 %; Platelet Count 120 10^3/cmm (157-399); Red Blood Count 2.77 10^6/uL (3.85-5.65); Red Cell Distribution Width 16.4 % (12.1-15.1); White Blood Count 6.33 10^3/uL (3.29-11.43)
[2023-12-31 04:27] LABS: Alanine Aminotransferase 28 U/L (0-41); Albumin Level 3.6 g/dL (3.5-5.2); Alkaline Phosphatase 122 U/L (40-130); Anion Gap 14.8 (5-19); Aspartate Amino Transferase 48 U/L (0-40); Blood Urea Nitrogen 9 mg/dL (6-20); Calcium 8.1 mg/dL (8.5-10.5); Carbon Dioxide 22 mmol/L (22-29); Chloride 94 mmol/L (98-107); Creatinine Clr Calc Pharmacy 86.3823; Globulin 2.5 g/dL (1.3-4.6); Glomerular Filtration Rate 79.4 mL/min (90-130); Glucose 110 mg/dL (65-115); Osmolality Calculated 261 mOsm/kg (285-295); Potassium 4.8 mmol/L (3.5-5.1); Sodium 126 mmol/L (136-145); Total Bilirubin 1.8 mg/dL (0.15-1.2); Total Protein 6.1 g/dL (6.6-8.7)
[2023-12-31 04:30] LABS: Sodium 126 mmol/L (136-145)
[2023-12-31 04:33] LABS: INR 1.44 (0.8-1.2)
--- NOTE | 2023-12-31 05:11 | PC.NURSE ---
Sodium level returned 126, up from 119 resulted 8 hours ago, midnight draw cancelled by Dr. Cook as still obtaining central line to infuse 3% at that time. Call placed to Dr. Avila without answer/return call. Dr. Cook notified - drip placed on hold awaiting reply. Charge nurse updated on status.
--- NOTE | 2023-12-31 07:41 | P.PN_ITS ---
Subjective 2 Subjective: The patient was seen and examined.He is weak. He has nausea. He feels better than yesterday. He still remains swollen though he states much better than last week. Medications: Reviewed: Yes Medication Review Details: Current Medications Acetaminophen (Acetaminophen 500 Mg Tablet) 500 mg PO Q4H PRN PRN Reason: fever Last Admin: 12/30/23 08:00 Dose: 500 mg Albuterol/Ipratropium (Ipratropium-Albuterol 3 Ml Neb) 3 ml INHALATION Q6H PRN PRN Reason: SHORTNESS OF BREATH Allopurinol (Allopurinol 300 Mg Tablet) 300 mg PO DAILY CHRIS Last Admin: 12/30/23 08:00 Dose: 300 mg Ceftriaxone Sodium (Ceftriaxone 2,000 Mg Sdv) 2,000 mg IVP Q24H HCRIS; Protocol Last Admin: 12/30/23 22:15 Dose: 2,000 mg Norepinephrine Bitartrate (Levophed) 4 mg in 250 mls @ 0 mls/hr IV .Q0M CHRIS; Protocol Last Titration: 12/31/23 00:40 Dose: 0 mcg/min, 0 mls/hr Albumin Human (Albumin) 25 g in 100 mls @ 60 mls/hr IV Q8H CHRIS Stop: 01/01/24 07:29 Ondansetron HCl (Ondansetron 2 Mg/Ml Sdv 2 Ml) 4 mg IVP Q6H PRN PRN Reason: NAUSEA AND VOMITING Last Admin: 12/30/23 23:10 Dose: 4 mg Oxycodone HCl (Oxycodone 5 Mg Ir Tab/Cap) 5 mg PO Q4H PRN PRN Reason: MODERATE PAIN Last Admin: 12/31/23 02:46 Dose: 5 mg Rifaximin (Rifaximin 200 Mg Tablet) 200 mg PO BID CHRIS Last Admin: 12/30/23 18:34 Dose: 200 mg Tramadol HCl (Tramadol 50 Mg Tablet) 50 mg PO Q8H PRN PRN Reason: MILD PAIN Last Admin: 12/30/23 08:01 Dose: 50 mg Vitals/I&O/Wt Last Vital Signs Temp 98.3 F 12/31/23 04:30 Pulse 82 12/31/23 06:00 Resp 12 12/31/23 06:00 BP 105/69 12/31/23 06:00 Pulse Ox 94 12/31/23 06:00 O2 Del Method Room Air 12/31/23 04:30 12/30/23 12/31/23 12/31/23 22:59 06:59 14:59 Intake Total 150 / 1571.25 1564.417 / 3135.667 Output Total 200 / 300 200 / 500 Balance -50 / 1271.25 1364.417 / 2635.667 Weight last 48 hrs Weight 64.365 kg Weight 68.266 kg Weight 70.307 kg Weight 68.039 kg Physical Exam 2 Narrative: in bed, no apparent distress. Vital signs low but stable. HEENT normocephalic atraumatic. Nonicteric. Neck is supple. Lungs clear. Heart regular. Abdomen soft positive distended positive ascites. Extremities minimal edema. Neuro awake alert oriented times 2+. Data 12/31/23 03:42 12/31/23 03:42 A&P Assessment and plan (1) Acute hyponatremia: 48-year-old gentleman alcoholic liver cirrhosis and recurrent paracentesis status post 1 L paracentesis on Thursday, December 28, 2023. Patient presented with acute kidney injury due to hypovolemia that has improved. 1. Hyponatremia: Has a low urine sodium. This is likely due to volume depletion from diuretics and large-volume paracentesis. Serum sodium is improving. Will stop salt tablets. Will stop normal saline. And will give albumin and monitor his electrolytes closely. Monitor electrolytes. 2.UTI; On Ceftriaxone 3.h/o gout patient evaluated using audiovisual cart. Case discussed in detail with the patient and his nurse.. (2) Acute kidney injury: See above. Improved. Attestations 2 Medical Necessity Statement*: Hyponatremia, cirrhosis and ascites Time Spent in Patient Care: 16 - 35 minutes (>than 50% of time sp ent in counselling and/or direct pt care on unit) . Coding Level of Care Code Acute Code for [facility] Diagnoses Acute hyponatremia E87.1 Acute kidney injury N17.9
[2023-12-31] MEDS: allopurinol 300 mg Tablet PO (08:11)
[2023-12-31] MEDS: rifaximin 200 mg Tablet PO ×2 (08:11→17:36)
[2023-12-31] MEDS: albumin 25 G/100 ML BAG 60 G IV ×2 (08:11→16:09)
[2023-12-31 08:28] LABS: Sodium 127 mmol/L (136-145)
[2023-12-31] MEDS: midodrine 5 mg TABLET 10 MG PO ×3 (09:39→21:53)
--- NOTE | 2023-12-31 11:11 | XRR_ITS ---
PROCEDURE INFORMATION: Exam: XR Chest Exam date and time: 12/31/2023 11:44 AM Age: 48 years old Clinical indication: Device placement; Other: Central line adjustment TECHNIQUE: Imaging protocol: Radiologic exam of the chest. Views: 1 view. COMPARISON: CR (CHEST, ) 12/31/2023 12:39 AM FINDINGS: Tubes, catheters and devices: Right IJ central line terminates in the right atrium. Lungs: No focal consolidation. Pleural spaces: No significant pleural fluid. No pneumothorax detected. Heart/Mediastinum: Heart size within normal range. No pulmonary vascular congestion. Bones/joints: No obvious acute abnormality. XR/XR chest 1V portable [id number] IMPRESSION: No acute cardiopulmonary abnormality detected on AP portable chest radiograph.
--- NOTE | 2023-12-31 13:37 | P.PN_ITS ---
Subjective 2 Subjective: - Patient was seen this morning O-ernight he had low blood pressures requiring-ICU admission, right IJ placed, placed on Levophed, currently off Levophed ? Hyponatremia, serum sodium dropped down to 119, was given hypertonic saline overnight, currently off # He has no complaints of headache, no blurry vision, no lightheadedness, no dizziness Vitals/I&O/Wt Last Vital Signs Temp 98.3 F 12/31/23 04:30 Pulse 98 12/31/23 12:30 Resp 17 12/31/23 12:30 BP 115/73 12/31/23 13:00 Pulse Ox 98 12/31/23 12:30 O2 Del Method Room Air 12/31/23 10:54 12/30/23 12/31/23 12/31/23 22:59 06:59 14:59 Intake Total 150 / 1571.25 1564.417 / 3135.667 500 / 500 Output Total 200 / 300 200 / 500 250 / 250 Balance -50 / 1271.25 1364.417 / 2635.667 250 / 250 Weight last 48 hrs Weight 64.365 kg Weight 68.266 kg Weight 70.307 kg Weight 68.039 kg Physical Exam 2 Const: COMMON NORMALS: no acute distress and patient oriented x3 Resp: COMMON NORMALS: normal respiratory effort, No retractions, No use of accessory muscles and clear to auscultation bilaterally AUSCULTATION: clear to auscultation bilaterally Cardio: COMMON NORMALS: regular rate, regular rhythm, S1 normal heart sound present and S2 normal heart sound present RATE: regular rate RHYTHM: r egular rhythm HEART SOUNDS: S1 normal heart sound present and S2 normal heart sound present GI: COMMON NORMALS: Normal to inspection, nondistended, normoactive bowel sounds present and non-tender Extremity: COMMON NORMALS: no pedal edema Neuro: COMMON NORMALS: patient oriented x3 Psych: COMMON NORMALS: mental status grossly normal Data 12/31/23 03:42 12/31/23 07:49 A&P Assessment and plan (1) Cirrhosis: (2) Liver cirrhosis: Qualifiers: Ascites presence: with ascites Hepatic cirrhosis type: unspecified hepatic cirrhosis Qualified Code(s): K74.60 - Unspecified cirrhosis of liver; R18.8 - Other ascites (3) Acute hyponatremia: (4) Weakness: (5) Physical deconditioning: (6) Protein calorie malnutrition: Plan Acute hyponatremia Secondary to recent paracentesis Status post hypertonic saline bolus, serum sodium 127 Check sodium level every 4 hours Urine sodium studies Restrict fluid intake Neurochecks, seizure precautions Hold diuretics, as per the patient he has been taken off Lasix and spironolactone because of low blood pressure and hyponatremia Patient has been evaluated by [facility] service for liver transplant currently waiting for [place] approval process Chronic kidney disease Creatinine seems around baseline however there was concern for hepatorenal syndrome in the past which improved with use of IV fluid hydration and albumin Hypotension, resolved, off Levophed, continue midodrine Ascites -Feeling fatigue, malaise -Pro-Pieter within normal limits, CRP slightly elevated -Prior paracentesis was yellow, cloudy, 69 WBCs, 72% PMN cells -Given recurrent ascites, continue on Rocephin for concern for SBP I will keep him on cardiac diet Hold diuretics He has chronic stable thrombocytopenia related to portal hypertension Abnormal UA, concern for UTI, continue Rocephin Liver cirrhosis -History of esophageal varices Follows up with [facility] Full code SCDs for DVT prophylaxis Plan for today, monitor serum sodium, monitor clinical status Attestations 2 Medical Necessity Statement*: Patient requires hospitalization for hyponatremia, hypotension Diagnoses Cirrhosis K74.60 Acute hyponatremia E87.1 Weakness R53.1 Physical deconditioning R53.81 Protein calorie malnutrition E46
[2023-12-31] MEDS: ondansetron 2 mg/ML SDV 2 mL 4 MG IVP (18:36)
[2023-12-31 20:04] LABS: Sodium 128 mmol/L (136-145)
[2023-12-31] MEDS: cefTRIAXone 2,000 mg SDV 2000 MG IVP (21:53)
[2023-12-31 22:55] LABS: Sodium 126 mmol/L (136-145)
[2024-01-01] VITALS (24 sets, daily range): BP systolic 103–119; BP diastolic 58–79; PULSE 65–108; RESP 10–21; TEMP 36.6–36.8; O2SAT 94–100
[2024-01-01] MEDS: albumin 25 G/100 ML BAG 60 G IV (00:24)
[2024-01-01] MEDS: ondansetron 2 mg/ML SDV 2 mL 4 MG IVP ×3 (00:44→18:03)
[2024-01-01 04:40] LABS: Basophils % 0.8 %; Eosinophils # 0.2 10^3/uL (0.0-0.8); Eosinophils % 3.8 %; Hematocrit 24.9 % (37-53); Lymphocytes # 0.7 10^3/uL (0.8-4.8); Mean Corpuscular HGB Conc 36.1 g/dL (30-55); Mean Corpuscular Hemoglobin 36.3 pg (27-33); Mean Corpuscular Volume 100.4 fl (82-101); Mean Platelet Volume 10.9 fL (7.4-10.4); Monocytes # 0.9 10^3/uL (0.2-0.9); Monocytes % 18.2 %; Neutrophils % 63.8 %; Nucleated Red Blood Cells % 0 %; Platelet Count 89 10^3/cmm (157-399); Red Blood Count 2.48 10^6/uL (3.85-5.65); Red Cell Distribution Width 16.7 % (12.1-15.1); White Blood Count 5.01 10^3/uL (3.29-11.43)
[2024-01-01 04:54] LABS: INR 1.53 (0.8-1.2)
[2024-01-01 05:17] LABS: Alanine Aminotransferase 23 U/L (0-41); Albumin Level 4.1 g/dL (3.5-5.2); Alkaline Phosphatase 106 U/L (40-130); Anion Gap 13.5 (5-19); Aspartate Amino Transferase 39 U/L (0-40); Blood Urea Nitrogen 9 mg/dL (6-20); Calcium 8.4 mg/dL (8.5-10.5); Carbon Dioxide 23 mmol/L (22-29); Chloride 96 mmol/L (98-107); Creatinine Clr Calc Pharmacy 76.7364; Globulin 1.9 g/dL (1.3-4.6); Glomerular Filtration Rate 71.1 mL/min (90-130); Glucose 85 mg/dL (65-115); Osmolality Calculated 264 mOsm/kg (285-295); Potassium 4.5 mmol/L (3.5-5.1); Sodium 128 mmol/L (136-145); Total Bilirubin 1.9 mg/dL (0.15-1.2)
--- NOTE | 2024-01-01 07:50 | P.PN_ITS ---
Subjective 2 Subjective: The patient was seen and examined. The patient is feeling better. Patient had nausea yesterday did not sleep well. Rest review of systems is acceptable. No headaches no chest pain no itching no cramps no difficulty urinating no edema. Medications: Reviewed: Yes Medication Review Details: Current Medications Acetaminophen (Acetaminophen 500 Mg Tablet) 500 mg PO Q4H PRN PRN Reason: fever Last Admin: 12/30/23 08:00 Dose: 500 mg Albuterol/Ipratropium (Ipratropium-Albuterol 3 Ml Neb) 3 ml INHALATION Q6H PRN PRN Reason: SHORTNESS OF BREATH Allopurinol (Allopurinol 300 Mg Tablet) 300 mg PO DAILY CHRIS Last Admin: 12/31/23 08:11 Dose: 300 mg Ceftriaxone Sodium (Ceftriaxone 2,000 Mg Sdv) 2,000 mg IVP Q24H CHRIS; Protocol Last Admin: 12/31/23 21:53 Dose: 2,000 mg Norepinephrine Bitartrate (Levophed) 4 mg in 250 mls @ 0 mls/hr IV .Q0M CHRIS; Protocol Last Titration: 12/31/23 00:40 Dose: 0 mcg/min, 0 mls/hr Midodrine (Midodrine 5 Mg Tablet) 10 mg PO TID CHRIS Last Admin: 12/31/23 21:53 Dose: 10 mg Ondansetron HCl (Ondansetron 2 Mg/Ml Sdv 2 Ml) 4 mg IVP Q6H PRN PRN Reason: NAUSEA AND VOMITING Last Admin: 01/01/24 00:44 Dose: 4 mg Oxycodone HCl (Oxycodone 5 Mg Ir Tab/Cap) 5 mg PO Q4H PRN PRN Reason: MODERATE PAIN Last Admin: 12/31/23 17:38 Dose: 5 mg Rifaximin (Rifaximin 200 Mg Tablet) 200 mg PO BID CHRIS Last Admin: 12/31/23 17:36 Dose: 200 mg Tramadol HCl (Tramadol 50 Mg Tablet) 50 mg PO Q8H PRN PRN Reason: MILD PAIN Last Admin: 12/30/23 08:01 Dose: 50 mg Vitals/I&O/Wt Last Vital Signs Temp 97.8 F 01/01/24 00:00 Pulse 90 01/01/24 07:46 Resp 16 01/01/24 07:46 BP 109/65 01/01/24 06:00 Pulse Ox 96 01/01/24 07:46 O2 Del Method Room Air 01/01/24 07:46 12/31/23 01/01/24 01/01/24 22:59 06:59 14:59 Intake Total 520 / 1020 320 / 1340 Output Total 275 / 525 400 / 925 Balance 245 / 495 -80 / 415 Weight last 48 hrs Weight 66.406 kg Weight 64.365 kg Physical Exam 2 Narrative: in bed, no apparent distress. Vital signs low but stable. HEENT normocephalic atraumatic. Nonicteric. Neck is supple. Lungs clear. Heart regular. Abdomen soft positive distended positive ascites. Extremities minimal edema. Neuro awake alert oriented times 3, no asterexis Data 01/01/24 04:15 01/01/24 04:15 A&P Assessment and plan (1) Acute hyponatremia: 48-year-old gentleman alcoholic liver cirrhosis and recurrent paracentesis status post 1 L paracentesis on Thursday, December 28, 2023. Patient presented with acute kidney injury due to hypovolemia that has improved. 1. Hyponatremia: Has a low urine sodium. This is likely due to volume depletion from diuretics and large-volume paracentesis. Serum sodium is improving to stable. At this time we will keep off of salt tablets. Will give normal saline and monitor his electrolytes closely. 2/acute kidney injury improving. 3.UTI; On Ceftriaxone follow-up cultures. 4.h/o gout patient evaluated using audiovisual cart. Case discussed in detail with the patient and his nurse (2) Acute kidney injury: See above. Plan IV fluids and monitor. Attestations 2 Medical Necessity Statement*: Ascites, liver cirrhosis, hyponatremia. Improved acute kidney injury. Time Spent in Patient Care: 16 - 35 minutes (>than 50% of time sp ent in counselling and/or direct pt care on unit) . Coding Level of Care Code Acute Code for [facility] Diagnoses Acute hyponatremia E87.1 Acute kidney injury N17.9
[2024-01-01] MEDS: midodrine 5 mg TABLET 10 MG PO ×3 (08:22→20:09)
[2024-01-01] MEDS: rifaximin 200 mg Tablet PO ×2 (08:23→17:42)
[2024-01-01] MEDS: allopurinol 300 mg Tablet PO (08:23)
[2024-01-01] MEDS: sodium chloride 0.9% 1,000 ML 75 ML IV (08:23)
[2024-01-01] MEDS: oxyCODONE 5 mg IR Tab/Cap PO ×2 (10:19→20:10)
[2024-01-01 10:46] LABS: Sodium 129 mmol/L (136-145)
[2024-01-01 13:18] LABS: Anion Gap 14.1 (5-19); Blood Urea Nitrogen 10 mg/dL (6-20); Calcium 8.6 mg/dL (8.5-10.5); Carbon Dioxide 23 mmol/L (22-29); Chloride 94 mmol/L (98-107); Creatinine Clr Calc Pharmacy 77.6745; Glomerular Filtration Rate 71.1 mL/min (90-130); Glucose 113 mg/dL (65-115); Osmolality Calculated 264 mOsm/kg (285-295); Potassium 4.1 mmol/L (3.5-5.1); Sodium 127 mmol/L (136-145)
--- NOTE | 2024-01-01 14:56 | PM.PN ---
Subjective Subjective: Patient was seen this morning, no headache, no blurry vision, no nausea, no vomiting, no lightheadedness, Vitals/I&O/Wt Last Vital Signs Temp 97.8 F 01/01/24 00:00 Pulse 96 01/01/24 09:00 Resp 18 01/01/24 10:19 BP 118/75 01/01/24 09:00 Pulse Ox 96 01/01/24 07:46 O2 Del Method Room Air 01/01/24 07:46 12/31/23 01/01/24 01/01/24 22:59 06:59 14:59 Intake Total 520 / 1020 320 / 1340 Output Total 275 / 525 400 / 925 200 / 200 Balance 245 / 495 -80 / 415 -200 / -200 Weight last 48 hrs Weight 66.406 kg Weight 64.365 kg Physical Exam Const: COMMON NORMALS: no acute distress and patient oriented x3 Resp: COMMON NORMALS: normal respiratory effort, No retractions, No use of accessory muscles and clear to auscultation bilaterally AUSCULTATION: clear to auscultation bilaterally Cardio: COMMON NORMALS: regular rate, regular rhythm, S1 normal heart sound present and S2 normal heart sound present RATE: regular rate RHYTHM: regular rhythm HEART SOUNDS: S1 normal heart sound present and S2 normal heart sound present GI: COMMON NORMALS: Normal to inspection, nondistended, normoactive bowel sounds present and non-tender OTHER: Abdomen is distended Extremity: COMMON NORMALS: no pedal edema Neuro: COMMON NORMALS: patient oriented x3 Psych: COMMON NORMALS: mental status grossly normal Data 01/01/24 04:15 01/01/24 12:49 A&P Assessment and plan (1) Cirrhosis: (2) Liver cirrhosis: Qualifiers: Ascites presence: with ascites Hepatic cirrhosis type: unspecified hepatic cirrhosis Qualified Code(s): K74.60 - Unspecified cirrhosis of liver; R18.8 - Other ascites (3) Acute hyponatremia: (4) Weakness: (5) Physical deconditioning: (6) Protein calorie malnutrition: Plan Acute hyponatremia, resolving, 127 Secondary to recent paracentesis Status post hypertonic saline bolus, serum sodium 127 Currently on normal saline Check sodium level Urine sodium studies Restrict fluid intake Neurochecks, seizure precautions Hold diuretics, as per the patient he has been taken off Lasix and spironolactone because of low blood pressure and hyponatremia Patient has been evaluated by [facility] service for liver transplant currently waiting for [place] approval process Chronic kidney disease Creatinine seems around baseline however there was concern for hepatorenal syndrome in the past which improved with use of IV fluid hydration and albumin Hypotension, resolved, off Levophed, continue midodrine Ascites -Feeling fatigue, malaise -Pro-Pieter within normal limits, CRP slightly elevated -Prior paracentesis was yellow, cloudy, 69 WBCs, 72% PMN cells -Given recurrent ascites, continue on Rocephin for concern for SBP I will keep him on cardiac diet Hold diuretics He has chronic stable thrombocytopenia related to portal hypertension Abnormal UA, concern for UTI, continue Rocephin Liver cirrhosis -History of esophageal varices Follows up with [facility] Full code SCDs for DVT prophylaxis Plan for today, monitor serum sodium, monitor clinical status, PT OT, moved to [facility] Attestations Medical Necessity Statement*: Patient requires hospitalization for hyponatremia, with underlying liver cirrhosis concern for possible SBP Diagnoses Cirrhosis K74.60 Acute hyponatremia E87.1 Weakness R53.1 Physical deconditioning R53.81 Protein calorie malnutrition E46
[2024-01-01] MEDS: cefTRIAXone 2,000 mg SDV 2000 MG IVP (20:09)
[2024-01-01] MEDS: sodium chloride 0.9% 1,000 ML 50 ML IV (20:12)
[2024-01-02] VITALS (7 sets, daily range): BP systolic 116–117; BP diastolic 65–69; PULSE 84–108; RESP 16–22; TEMP 36.7–36.9; O2SAT 93–97
[2024-01-02 05:08] LABS: Basophils # 0.1 10^3/uL (0.0-0.1); Basophils % 1.7 %; Eosinophils # 0.2 10^3/uL (0.0-0.8); Eosinophils % 4.4 %; Hematocrit 25.5 % (37-53); Lymphocytes # 0.7 10^3/uL (0.8-4.8); Lymphocytes % 14.6 %; Mean Corpuscular HGB Conc 36.5 g/dL (30-55); Mean Corpuscular Hemoglobin 36.5 pg (27-33); Mean Platelet Volume 10.5 fL (7.4-10.4); Monocytes % 20.9 %; Neutrophils # 2.75 10^3/uL (1.8-7.7); Neutrophils % 58.2 %; Nucleated Red Blood Cells % 0 %; Platelet Count 89 10^3/cmm (157-399); Red Blood Count 2.55 10^6/uL (3.85-5.65); White Blood Count 4.73 10^3/uL (3.29-11.43)
[2024-01-02 05:19] LABS: INR 1.48 (0.8-1.2)
[2024-01-02 05:27] LABS: Albumin Level 3.6 g/dL (3.5-5.2); Alkaline Phosphatase 108 U/L (40-130); Anion Gap 14.7 (5-19); Aspartate Amino Transferase 42 U/L (0-40); Blood Urea Nitrogen 11 mg/dL (6-20); Calcium 8.5 mg/dL (8.5-10.5); Carbon Dioxide 22 mmol/L (22-29); Chloride 98 mmol/L (98-107); Creatinine Clr Calc Pharmacy 77.6745; Globulin 2.1 g/dL (1.3-4.6); Glomerular Filtration Rate 71.1 mL/min (90-130); Glucose 86 mg/dL (65-115); Magnesium 1.8 mg/dL (1.7-2.3); Osmolality Calculated 269 mOsm/kg (285-295); Potassium 4.7 mmol/L (3.5-5.1); Sodium 130 mmol/L (136-145); Total Protein 5.7 g/dL (6.6-8.7)
[2024-01-02 05:38] LABS: Alanine Aminotransferase 25 U/L (0-41)
[2024-01-02] MEDS: ondansetron 2 mg/ML SDV 2 mL 4 MG IVP (09:23)
[2024-01-02] MEDS: allopurinol 300 mg Tablet PO (10:09)
[2024-01-02] MEDS: rifaximin 200 mg Tablet PO (10:09)
[2024-01-02] MEDS: midodrine 5 mg TABLET 10 MG PO (10:09)
--- NOTE | 2024-01-02 10:23 | P.PN_ITS ---
Subjective 2 Subjective: Seen and examined. Patient still complains of nausea. Patient on fluid restriction and on IV fluids. Not eating well. No diarrhea. Vomited last night no chest pain no edema Medications: Reviewed: Yes Medication Review Details: Current Medications Acetaminophen (Acetaminophen 500 Mg Tablet) 500 mg PO Q4H PRN PRN Reason: fever Last Admin: 12/30/23 08:00 Dose: 500 mg Albuterol/Ipratropium (Ipratropium-Albuterol 3 Ml Neb) 3 ml INHALATION Q6H PRN PRN Reason: SHORTNESS OF BREATH Allopurinol (Allopurinol 300 Mg Tablet) 300 mg PO DAILY [facility] Last Admin: 01/02/24 10:09 Dose: 300 mg Ceftriaxone Sodium (Ceftriaxone 2,000 Mg Sdv) 2,000 mg IVP Q24H CHRIS; Protocol Last Admin: 01/01/24 20:09 Dose: 2,000 mg Norepinephrine Bitartrate (Levophed) 4 mg in 250 mls @ 0 mls/hr IV .Q0M CHRIS; Protocol Last Titration: 12/31/23 00:40 Dose: 0 mcg/min, 0 mls/hr Sodium Chloride (Sodium Chloride 0.9%) 1,000 mls @ 50 mls/hr IV .Q20H CHRIS Last Admin: 01/01/24 20:12 Dose: 50 mls/hr Midodrine (Midodrine 5 Mg Tablet) 10 mg PO TID CHRIS Last Admin: 01/02/24 10:09 Dose: 10 mg Ondansetron HCl (Ondansetron 2 Mg/Ml Sdv 2 Ml) 4 mg IVP Q6H PRN PRN Reason: NAUSEA AND VOMITING Last Admin: 01/02/24 09:23 Dose: 4 mg Oxycodone HCl (Oxycodone 5 Mg Ir Tab/Cap) 5 mg PO Q4H PRN PRN Reason: MODERATE PAIN Last Admin: 01/01/24 20:10 Dose: 5 mg Rifaximin (Rifaximin 200 Mg Tablet) 200 mg PO BID CHRIS Last Admin: 01/02/24 10:09 Dose: 200 mg Tramadol HCl (Tramadol 50 Mg Tablet) 50 mg PO Q8H PRN PRN Reason: MILD PAIN Last Admin: 12/30/23 08:01 Dose: 50 mg Vitals/I&O/Wt Last Vital Signs Temp 98.5 F 11/13/24 07:39 Pulse 108 H 01/02/24 08:46 Resp 18 01/02/24 08:46 BP 117/65 01/02/24 07:39 Pulse Ox 93 01/02/24 08:46 O2 Del Method Room Air 01/02/24 08:46 01/01/24 01/02/24 01/02/24 22:59 06:59 14:59 Intake Total 1106.25 / 1406.25 480 / 480 Balance 1106.25 / 1206.25 480 / 480 Weight last 48 hrs Weight 73.618 kg Weight 66.406 kg Physical Exam 2 Narrative: in bed, no apparent distress. Vital signs stable. HEENT normocephalic atraumatic. Nonicteric. Neck is supple. Lungs clear. Heart regular. Abdomen soft positive distended positive ascites. Extremities minimal edema. Neuro awake alert oriented times 3, no asterexis Data 01/02/24 04:19 01/02/24 04:19 A&P Assessment and plan (1) Acute hyponatremia: 48-year-old gentleman alcoholic liver cirrhosis and recurrent paracentesis status post 1 L paracentesis on Thursday, December 28, 2023. Patient presented with acute kidney injury due to hypovolemia that has improved. 1. Hyponatremia: Has a low urine sodium. This is likely due to volume depletion from diuretics and large-volume paracentesis. Serum sodium is improving to stable. At this time we will keep off of salt tablets. Will give gentle normal saline for a few more hours and monitor his electrolytes closely. 2/acute kidney injury improving. 3.UTI; On Ceftriaxone follow-up cultures. 4.h/o gout patient evaluated using audiovisual cart. Case discussed in detail with the patient and his nurse (2) Acute kidney injury: See above. Plan d/c IV fluids later today and monitor. Attestations 2 Medical Necessity Statement*: per medicine Time Spent in Patient Care: 16 - 35 minutes (>than 50% of time sp ent in counselling and/or direct pt care on unit) . Coding Level of Care Code Acute Code for [facility] Diagnoses Acute hyponatremia E87.1 Acute kidney injury N17.9
[2024-01-02] MEDS: oxyCODONE 5 mg IR Tab/Cap PO (10:28)
[2024-01-02 10:52] LABS: Uric Acid 2.6 mg/dL (3.4-7.0)
--- NOTE | 2024-01-02 10:52 | PM.DCS ---
Discharge Providers Date of Admission: 12/30/23 14:53 Date of Discharge: January 02, 2024 Attending Provider at Admission: Mayra Cook MD Attending Provider at Discharge: Fortino Wagoner MD Primary Care Provider: Alia Sanchez MD Diagnoses at Discharge Discharge Diagnosis (1) Acute hyponatremia: Status: Acute (2) Acute kidney injury: Status: Resolved Reason for Visit Reason for Visit: lethargic, sodium levels low. dizzy Hospital Course Hospital Course This is a 48-year-old male, with a past medical history of liver cirrhosis, history of decompensated liver cirrhosis, esophageal varices, splenomegaly, who presents [facility] due to fatigue, weakness, Patient had a complicated hospital course, please look at my prior progress note for further detail On admission there was concern for acute hyponatremia, which required brief ICU admission, with hypertonic saline, nephrology consulted, serum sodium gradually improved with IV fluids, on discharge serum sodium is 130. Please follow-up with primary care provider in 1 week to recheck serum sodium. For CKD, there was concern for hepatorenal syndrome, creatinine has improved Patient did have hypotension during his hospitalization, requiring transient Levophed, which was discontinued, managed on midodrine. Will discharge patient on midodrine 5 mg 3 times daily For his urinary tract infection he completed antibiotic therapy as inpatient There was concern for spontaneous bacterial peritonitis during his hospitalization, he had a paracentesis 12/28/2023, the fluid that was collected was not sent for culture/no fluid analysis such as proteins, nonetheless due to his complaints of weakness, fatigue, malaise, abdominal pain he was managed on IV antibiotics. So far his blood cultures have been unremarkable. Looking at patient's prior studies, his total fluid protein was 0.7, given his advanced liver failure/cirhosis, recurrent admission for weakness, abdominal pain, discussed risk and benefits of SBP prophylaxis, he voiced understanding, all questions answered, he agrees to proceed. Physical Exam Const: COMMON NORMALS: no acute distress and patient oriented x3 Resp: COMMON NORMALS: normal respiratory effort, No retractions, No use of accessory muscles and clear to auscultation bilaterally AUSCULTATION: clear to auscultation bilaterally Cardio: COMMON NORMALS: regular rate, regular rhythm, S1 normal heart sound present and S2 normal heart sound present RATE: regular rate RHYTHM: regular rhythm HEART SOUNDS: S1 normal heart sound present and S2 normal heart sound present GI: COMMON NORMALS: Normal to inspection, nondistended, normoactive bowel sounds present and non-tender Extremity: COMMON NORMALS: no pedal edema Neuro: COMMON NORMALS: patient oriented x3 Psych: COMMON NORMALS: mental status grossly normal Discharge Data Studies Completed and Pending Completed Studies During Hospitalization Category Date Time Status XR KUB portable [id number] Routine Exams 12/30/23 09:01 Completed XR chest 1V [id number] Stat Exams 12/31/23 00:24 Completed XR chest 1V portable [id number] Routine Exams 12/30/23 09:01 Completed XR chest 1V portable [id number] Routine Exams 12/31/23 11:11 Completed Pending at discharge Category Date Time Status Comprehensive Metabolic Panel AM LABS Lab 01/03/24 04:00 Ordered Comprehensive Metabolic Panel AM LABS Lab 01/03/24 04:00 Ordered Comprehensive Metabolic Panel AM LABS Lab 01/04/24 04:00 Ordered Comprehensive Metabolic Panel AM LABS Lab 01/04/24 04:00 Ordered Comprehensive Metabolic Panel AM LABS Lab 01/05/24 04:00 Ordered Magnesium AM LABS Lab 01/03/24 04:00 Ordered Magnesium AM LABS Lab 01/03/24 04:00 Ordered Magnesium AM LABS Lab 01/04/24 04:00 Ordered Magnesium AM LABS Lab 01/04/24 04:00 Ordered Magnesium AM LABS Lab 01/05/24 04:00 Ordered Osmolality Urine Routine Lab 12/30/23 15:49 Received Phosphorus AM LABS Lab 01/03/24 04:00 Ordered Phosphorus AM LABS Lab 01/03/24 04:00 Ordered Phosphorus AM LABS Lab 01/04/24 04:00 Ordered Phosphorus AM LABS Lab 01/04/24 04:00 Ordered Phosphorus AM LABS Lab 01/05/24 04:00 Ordered Uric Acid AM LABS Lab 01/03/24 04:00 Ordered Uric Acid Routine Lab 01/02/24 04:19 Received Radiology Impressions KUB X-Ray 12/30/23 09:01 IMPRESSION: 1. No bowel obstruction 2. Ascites Chest X-Ray 12/31/23 11:11 IMPRESSION: No acute cardiopulmonary abnormality detected on AP portable chest radiograph. Laboratory Results WBC 4.73 10^3/uL (3.29-11.43) 01/02/24 04:19 RBC 2.55 10^6/uL (3.85-5.65) L 01/02/24 04:19 Hgb 9.30 g/dL (11.27-16.99) L 01/02/24 04:19 Hct 25.5 % (37-53) L 01/02/24 04:19 MCV 100.0 fl (82-101) 01/02/24 04:19 MCH 36.5 pg (27-33) H 01/02/24 04:19 MCHC 36.5 g/dL (30-55) 01/02/24 04:19 RDW 17.0 % (12.1-15.1) H 01/02/24 04:19 Plt Count 89 10^3/cmm (157-399) L 01/02/24 04:19 MPV 10.5 fL (7.4-10.4) H 01/02/24 04:19 Neut % (Auto) 58.2 % 01/02/24 04:19 Lymph % (Auto) 14.6 % 01/02/24 04:19 [place] % (Auto) 20.9 % 01/02/24 04:19 Eos % (Auto) 4.4 % 01/02/24 04:19 Baso % (Auto) 1.7 % 01/02/24 04:19 Neut # (Auto) 2.75 10^3/uL (1.8-7.7) 01/02/24 04:19 Lymph # (Auto) 0.7 10^3/uL (0.8-4.8) L 01/02/24 04:19 [place] # (Auto) 1.0 10^3/uL (0.2-0.9) H 01/02/24 04:19 Eos # (Auto) 0.2 10^3/uL (0.0-0.8) 01/02/24 04:19 Baso # (Auto) 0.1 10^3/uL (0.0-0.1) 01/02/24 04:19 Nucleated RBC % (auto) 0 % 01/02/24 04:19 Nucleated RBCs # 0.0 /100WBC 01/02/24 04:19 ESR 1 mm/hr (0-10) 12/30/23 09:22 PT 18.40 SECONDS (12.1-14.9) H 01/02/24 04:19 INR 1.48 (0.8-1.2) H 01/02/24 04:19 APTT 33.9 SECONDS (23.9-36.7) 12/29/23 19:30 Sodium 130 mmol/L (136-145) L 01/02/24 04:19 Potassium 4.7 mmol/L (3.5-5.1) 01/02/24 04:19 Chloride 98 mmol/L (98-107) 01/02/24 04:19 Carbon Dioxide 22 mmol/L (22-29) 01/02/24 04:19 Anion Gap 14.7 (5-19) 01/02/24 04:19 BUN 11 mg/dL (6-20) 01/02/24 04:19 Creatinine 1.1 mg/dL (0.7-1.2) 01/02/24 04:19 GFR Calculation 71.1 mL/min (90-130) L 01/02/24 04:19 Glucose 86 mg/dL (65-115) 01/02/24 04:19 Calculated Osmolality 269 mOsm/kg (285-295) L 01/02/24 04:19 Calcium 8.5 mg/dL (8.5-10.5) 01/02/24 04:19 Phosphorus 3.0 mg/dL (2.5-4.5) 01/02/24 04:19 Magnesium 1.8 mg/dL (1.7-2.3) 01/02/24 04:19 Total Bilirubin 2.0 mg/dL (0.15-1.2) H 01/02/24 04:19 AST 42 U/L (0-40) H 01/02/24 04:19 ALT 25 U/L (0-41) 01/02/24 04:19 Alkaline Phosphatase 108 U/L (40-130) 01/02/24 04:19 Ammonia 25 umol/L (16-60) 12/29/23 19:30 C-Reactive Protein 7.8 mg/L (0.0-4.9) H 12/30/23 09:22 Total Protein 5.7 g/dL (6.6-8.7) L 01/02/24 04:19 Albumin 3.6 g/dL (3.5-5.2) 01/02/24 04:19 Globulin 2.1 g/dL (1.3-4.6) 01/02/24 04:19 Procalcitonin 0.14 ng/mL (0-0.5) 12/30/23 09:22 TSH 1.73 uIU/mL (0.27-4.20) 12/30/23 09:22 Urine Color [place] (Yellow) A 12/29/23 19:44 Urine Appearance Clear (CLEAR) 12/29/23 19:44 Urine pH 5.0 (5-7) 12/29/23 19:44 Ur Specific [place] 1.028 (1.005-1.030) 12/29/23 19:44 Urine Protein 1+ (Negative) A 12/29/23 19:44 Urine Glucose (UA) Negative (Normal) 12/29/23 19:44 Urine Ketones Trace (Negative) 12/29/23 19:44 Urine Blood Negative (Negative) 12/29/23 19:44 Urine Nitrate Negative (Negative) 12/29/23 19:44 Urine Bilirubin 1+ (Negative) H 12/29/23 19:44 Urine Urobilinogen 1.0 mg/dL (Negative) 12/29/23 19:44 Ur Leukocyte Esterase Trace (Negative) A 12/29/23 19:44 Urine RBC 3-5 /hpf (0-2) 12/29/23 19:44 Urine WBC 0-5 /hpf (0-5) 12/29/23 19:44 Ur Squamous Epith Cells 0-5 /hpf (0-5) 12/29/23 19:44 Amorphous Sediment Not Reportable 12/29/23 19:44 Urine Bacteria None seen /hpf (NONE) 12/29/23 19:44 Hyaline Casts 34.33 /lpf 12/29/23 19:44 Urine Mucus 2+ /hpf 12/29/23 19:44 Ur Random Sodium < 10 mmol/L 12/30/23 15:49 Ur Random Chloride < 10 mmol/L 12/30/23 15:49 Vitals Last Vital Signs Temp 98.5 F 01/02/24 07:39 Pulse 108 H 01/02/24 08:46 Resp 16 01/02/24 10:28 BP 117/65 01/02/24 07:39 Pulse Ox 93 01/02/24 08:46 O2 Del Method Room Air 11/13/24 08:46 Discharge Plan Discharge Patient Disposition: Home Condition: Stable Prescriptions: New metoclopramide HCl [Reglan] 5 mg tablet 5 mg PO BID PRN (Reason: nausea and vomiting) 7 Days Qty: 14 0RF midodrine 5 mg tablet 5 mg PO TID 30 Days Qty: 90 0RF Continued Xifaxan 200 mg Tablet 200 mg PO BID tramadol 50 mg tablet 50 mg PO Q8H PRN (Reason: pain) Qty: 14 0RF polyethylene glycol 3350 [Miralax] 17 gram Powder In Packet 17 g PO DAILY PRN (Reason: Constipation) ondansetron HCl 4 mg tablet 4 mg PO Q8H PRN (Reason: Nausea And Vomiting) 30 Days Qty: 30 0RF pantoprazole 40 mg tablet,delayed release (DR/EC) 40 mg PO DAILY allopurinol 300 mg Tablet 300 mg PO DAILY Changed ciprofloxacin HCl 500 mg tablet 500 mg PO DAILY 30 Days Qty: 30 0RF Discharge Orders: Discharge Order (Routine); Ordered 01/02/24 Ordered By: Fortino Wagoner Referrals: Alia Sanchez MD [Primary Care Provider] - 01/08/24 1:30 pm Discharge Diet: Cardiac Discharge Activity: Resume usual activity Patient Instructions: Metoclopramide (By mouth), Midodrine (By mouth), Hyponatremia (GEN), Opioid Safety Activity Restrictions/Additional Instructions: - I am discharging on ciprofloxacin 500 mg daily for spontaneous bacterial peritonitis prophylaxis -Please follow-up with primary care provider Discharge Attestations Time Spent in Discharge Care*: greater than 30 min Quality Metrics Clinical Quality Measures [ No reported AMI, CVA or VTE this stay] Coding Level of Care Code 23716 Total time (in minutes) for Discharge: 45 Diagnoses Acute hyponatremia E87.1 Acute kidney injury N17.9
[2024-01-02 14:50] LABS: Osmolality Urine 710 mOsm/kg (50-1200)
== END 2024-01-02 12:30 | disposition home or self-care (01) | DRG 640 ==
LOC: ER 20:42 → MEDSURG 21:40 → ICU 12-30 14:25 → MEDSURG 01-01 17:03
PROVIDERS: Hospitalist; Internal Medicine Nephrology; Admitting Provider Internal Medicine; Emergency Provider Emergency Medicine; PCP Family Medicine; Visit Provider Family Medicine
DX: E87.1 Hypo-osmolality and hyponatremia (principal); K65.2 Spontaneous bacterial peritonitis; K76.7 Hepatorenal syndrome; N17.9 Acute kidney failure, unspecified; N39.0 Urinary tract infection, site not specified; K76.6 Portal hypertension; I85.10 Secondary esophageal varices without bleeding; E46 Unspecified protein-calorie malnutrition; K70.31 Alcoholic cirrhosis of liver with ascites; I95.9 Hypotension, unspecified; N18.9 Chronic kidney disease, unspecified; K72.90 Hepatic failure, unspecified without coma; D69.6 Thrombocytopenia, unspecified; F17.210 Nicotine dependence, cigarettes, uncomplicated; R16.1 Splenomegaly, not elsewhere classified; Z68.24 Body mass index [BMI] 24.0-24.9, adult; M10.9 Gout, unspecified; F10.10 Alcohol abuse, uncomplicated
CPT/HCPCS: 36415; 36592; 71045; 74018; 80048; 80053; 81001; 82140; 82436; 83735; 83935; 84100; 84145; 84295; 84300; 84443; 84550; 85025; 85610; 85651; 85730; 86140; 93005; 96360; 96361; 96374; 96376; 97162; 97165; 99285; C1751; G0378; J0696; J2405; J7030; J7050; J7131; P9045; P9046; Q3014

== ENCOUNTER → 2024-01-04 10:52 | Outpatient (BNVA) | payer OTHER, SELFPAY | PROVIDERS: PCP Family Medicine; Visit Provider Internal Medicine Cardiovascular Disease | DX: K74.60 Unspecified cirrhosis of liver (principal); Z87.891 Personal history of nicotine dependence; I95.9 Hypotension, unspecified; R07.9 Chest pain, unspecified; Z86.79 Personal history of other diseases of the circulatory system | CPT/HCPCS: 99204 ==

== ENCOUNTER 2024-01-08 18:03 | Emergency (ER) | payer OTHER, SELFPAY ==
[2024-01-08] VITALS (8 sets, daily range): BP systolic 114–133; BP diastolic 63–74; PULSE 85–105; RESP 16–18; TEMP 36.5; O2SAT 95–99; BMI 22.8
[2024-01-08 19:00] LABS: Basophils # 0.1 10^3/uL (0.0-0.1); Basophils % 0.9 %; Eosinophils # 0.2 10^3/uL (0.0-0.8); Eosinophils % 3.7 %; Hematocrit 30.3 % (37-53); Lymphocytes # 0.7 10^3/uL (0.8-4.8); Lymphocytes % 10.1 %; Mean Corpuscular HGB Conc 35.6 g/dL (30-55); Mean Corpuscular Hemoglobin 37.2 pg (27-33); Mean Corpuscular Volume 104.5 fl (82-101); Mean Platelet Volume 9.9 fL (7.4-10.4); Monocytes % 15.9 %; Neutrophils # 4.46 10^3/uL (1.8-7.7); Neutrophils % 69.1 %; Nucleated Red Blood Cells % 0 %; Platelet Count 112 10^3/cmm (157-399); Red Cell Distribution Width 18.4 % (12.1-15.1); White Blood Count 6.46 10^3/uL (3.29-11.43)
[2024-01-08 19:21] LABS: Alanine Aminotransferase 32 U/L (0-41); Alkaline Phosphatase 119 U/L (40-130); Anion Gap 17.7 (5-19); Aspartate Amino Transferase 52 U/L (0-40); Blood Urea Nitrogen 17 mg/dL (6-20); Carbon Dioxide 20 mmol/L (22-29); Chloride 97 mmol/L (98-107); Creatinine Clr Calc Pharmacy 57.5117; Globulin 3.1 g/dL (1.3-4.6); Glomerular Filtration Rate 49.7 mL/min (90-130); Glucose 107 mg/dL (65-115); Magnesium 1.8 mg/dL (1.7-2.3); Osmolality Calculated 274 mOsm/kg (285-295); Potassium 3.7 mmol/L (3.5-5.1); Sodium 131 mmol/L (136-145); Total Bilirubin 2.9 mg/dL (0.15-1.2); Total Protein 7.1 g/dL (6.6-8.7)
--- NOTE | 2024-01-08 21:08 | XRR_ITS ---
PROCEDURE INFORMATION: Exam: XR Chest Exam date and time: 01/08/2024 9:10 PM Age: 48 years old Clinical indication: Shortness of breath; Additional info: SOB TECHNIQUE: Imaging protocol: Radiologic exam of the chest. Views: 1 view. COMPARISON: CR XR chest 1V portable [id number] 12/31/2023 11:44 AM FINDINGS: Lungs: Poor inspiratory effort. Bibasilar atelectasis and/or infiltrates. Greatest on the right. Pleural spaces: Unremarkable. No pleural effusion. No pneumothorax. Heart/Mediastinum: Unremarkable. No cardiomegaly. Bones/joints: Unremarkable. XR/XR chest 1V [id number] IMPRESSION: As above.
--- NOTE | 2024-01-08 21:08 | ED_ITS ---
HPI - SOB/Dyspnea 2 General: Chief Complaint: Nausea/Vomiting/Diarrhea Stated Complaint: SOB\Vomiting Time Seen by Provider: 01/08/24 20:46 Source: patient and family Mode of arrival: ambulatory Limitations: no limitations History of Present Illness: HPI Narrative: This patient states he feels a little more breathless at times than usual. The symptoms been present over the past several days. He does have a history of alcoholic cirrhosis and has had every biweekly paracentesis for ascites fluid buildup. 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 He states that he has had some episodes of vomiting and sometimes with coughing and sometimes not with coughing. He predominantly coughs up very minimal if any clear sputum. He denies any chest pain. He is ex-smoker having some stop smoking approximately 3 months ago. He no longer drinks alcohol having discontinued several years ago. He is currently in the preliminary stages of exploring possibility of liver transplant. He states has been urinating and been drinking although his appetites been less today but he still been eating and drinking. He also has an abdominal hernia which intermittently pops out and then is easily reduced at home. He has no known history of asthma or COPD and does not wear oxygen or use inhalers. He has no history of cardiovascular disease to include congestive heart failure etc. Exacerbating factors: nothing Relieving factors: nothing Associated symptoms: Deny chest pain, extremity pain, fever(s) or palpitations Related Data Home Medications Medication Instructions Recorded Confirmed allopurinol 300 mg tablet 300 mg PO DAILY 06/29/23 01/04/24 pantoprazole 40 mg tablet,delayed 40 mg PO DAILY 06/29/23 01/04/24 release rifaximin 200 mg tablet (Xifaxan) 200 mg PO BID 12/13/23 01/04/24 polyethylene glycol 3350 17 gram 17 g PO DAILY PRN Constipation 12/29/23 01/04/24 oral powder packet (Miralax) Previous Rx's Medication Instructions Recorded tramadol 50 mg tablet 50 mg PO Q8H PRN pain #14 tabs 12/11/23 ciprofloxacin HCl 500 mg tablet 500 mg PO DAILY 30 days #30 tabs 01/02/24 metoclopramide HCl 5 mg tablet 5 mg PO BID PRN nausea and 01/02/24 (Reglan) vomiting 7 days #14 tabs midodrine 5 mg tablet 5 mg PO TID 30 days #90 tabs 01/02/24 ondansetron HCl 4 mg tablet 4 mg PO Q8H PRN Nausea And 01/02/24 Vomiting 30 days #30 tabs albuterol sulfate 90 mcg/actuation 2 inh inhalation Q6H PRN shortness 01/08/24 aerosol inhaler (Ventolin HFA) of breath or wheezing #6.7 grams Allergies Allergy/AdvReac Type Severity Reaction Status Date / Time No Known Allergies Allergy Verified 01/04/24 10:58 Review of Systems 2 Const: Denies: fever(s), chills or body aches Card: Denies: chest pain or palpitations Resp: Reports: non-productive cough GI: Denies: hematochezia or melena : Denies: flank pain, difficulty urinating, dysuria or urinary frequency Musc: Denies: back pain, extremity pain or extremity swelling Skin/Breast: Denies: rash Neuro: Denies: headache(s), numbness in extremities or weakness in extremities PFSH ED 2 PFSH: Medical History Acute hepatic failure Abdominal ascites Smoker Colitis Low oxygen saturation Enteropathy Smoking addiction Alcohol use disorder Thrombocytopenia Liver cirrhosis Hematuria Ascites due to alcoholic cirrhosis Abdominal pain 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 History of colon polyps Rectal polyp 10 and 15 cm, cecum biopsy Sigmoid colon polyp Seasonal allergies Splenomegaly Enterocolitis 2016 Surgical History Status post colonoscopy with polypectomy H/O esophagogastroduodenoscopy Vasectomy status H/O left inguinal hernia repair Family History Denies family history of Cancer Social History Smoking and tobacco/nicotine status: former use of tobacco/nicotine Alcohol intake: current Substance/Drug Use: never Lives independently: Yes Housing: House Marital status: 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 He answers questions in a goal-directed fashion and speaks in complete sentences without dyspnea. Const: COMMON NORMALS: average body habitus and patient oriented x3 GENERAL APPEARANCE: cooperative and comfortable HENMT: COMMON NORMALS: Normal nasal mucous membranes and turbinates present, moist oral mucous membranes and oropharynx normal NOSE: Normal nasal mucous membranes and turbinates present Eye: COMMON NORMALS: Equal, round and reactive pupils present, EOMs intact bilaterally and conjunctivae normal CONJUNCTIVA: Yes conjunctivae normal P UPIL: Yes Equal, round and reactive pupils present Neck/C-Spine: COMMON NORMALS: full ROM, no JVD and No carotid bruits Chest: COMMONS NORMALS: normal inspection of the chest Resp: COMMON NORMALS: normal respiratory effort, No retractions, No use of accessory muscles and clear to auscultation bilaterally AUSCULTATION: clear to auscultation bilaterally Cardio: COMMON NORMALS: no JVD, regular rate, regular rhythm, No murmurs present (Cardio) and Peripheral pulses 2+ throughout RATE: regular rate R HYTHM: regular rhythm PERIPHERAL PULSES: Peripheral pulses 2+ throughout GI: COMMON NORMALS: Soft to palpation PALPATION: Yes Soft to palpation, No Guarding due to palpation present (GI), No Rigid due to palpation, Yes Hernia present (Easily reduced and nontender) umbilical and Yes Ascites present P ERCUSSION: tympanic to percussion : COMMON NORMALS: Yes no CVA tenderness BLADDER/KIDNEY EXAM: Yes no CVA tenderness Back/Pelvis: COMMON NORMALS: no CVA tenderness, thoracic and lumbar spine normal to inspection, no thoracic nor lumbar tenderness and thoraco-lumbar ROM normal Extremity: COMMON NORMALS: normal to inspection, full ROM, capillary refill normal, no calf tenderness and no pedal edema Neuro: COMMON NORMALS: patient oriented x3, moves all extremities, no focal motor deficits and no sensory deficits noted Psych: COMMON NORMALS: mental status grossly normal Skin: COMMON NORMALS: no rashes or lesions noted, no wounds, turgor normal and no jaundice GENERAL SKIN EXAM: no rashes or lesions noted and turgor normal Course 2 Reevaluation(s): Reevaluation #1: I reviewed current findings with both patient and spouse. He has laboratories are essentially within the realm of his normal. He is not hyponatremic currently. He is renal function is relatively the same as it has been in the past weeks. It fluctuates between a creatinine of 0.9-1.5 which it is today. Total bilirubin is again within his normal range as well. Repeat auscultation reveals essentially clear lungs with no evidence of crackles etc. at this time. Chest x-ray shows some changes in the right lower lobe which may be construed as possible atelectasis certainly not an effusion. My working theory is at this point that because of his ascites he is taking less deep breaths as a developing some atelectasis and perhaps because of irritation of his diaphragm producing his intermittent coughing. Likely his ascites is also reducing his diaphragmatic excursions making him subjectively more short of breath. He is not tachycardic, hypoxic, tachypneic and does not have fever or other findings to suggest definite pulmonary infection at this point. Time: 22:38 Reevaluation #2: After DuoNeb treatment the patient states he feels much better he is able to breathe deeper. Again I discussed the likely etiology of his condition due to diaphragmatic irritation ascites fluid preventing inspirations and resulting in atelectasis. Will go ahead and have him use an inhaler with a spacer on a as needed basis not so much for bronchospasm but this stimulate him to breathe more deeply. We also discussed the need to call in the morning to get in for a paracentesis for the next 24 hours. We also discussed return precautions in detail particularly development of fever increasing abdominal pain or any other concerns. We also discussed the need to ensure that he is drinking his 1500 mL of water daily to help maintain kidney function is that apparently he has not been drinking much water and primarily drinking either sodas or tea. Time: 23:04 Vital Signs: Vital signs: Vital Signs Temperature 97.7 F 01/08/24 18:21 Pulse Rate 101 H 01/08/24 22:47 Respiratory Rate 16 01/08/24 22:41 Blood Pressure 133/74 01/08/24 21:00 Pulse Oximetry 98 01/08/24 22:41 Oxygen Delivery Me thod Room Air 01/08/24 22:41 MDM - SOB/Dyspnea Medical Decision Making This patient presented as noted in history of present illness with some occasional episodes of coughing some mild nausea occasional episodes of vomiting. There is no associated fevers chills etc. He is has a history of alcoholic cirrhosis with recurrent ascites. He is scheduled for a paracentesis later this week. He had a prior history of hyponatremia likely related to a large-volume paracentesis that required hospitalization pressure support because of hypotension and intravascular depletion. 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 Laboratories were obtained to evaluate for potential electrolyte disturbances, leukocytosis of the potential etiologies such as anemia profound anemia etc. Chest x-ray is also obtained to evaluate for possible pulmonary infection, pleural effusion etc. Laboratories were noted and did show a essentially unchanged biochemical parameters from previous. His kidney function was notable to be slightly elevated at 1.5 but this is consistent with what he has displayed in the past. His GFR is also consistent with what he has displayed in the past and has had varying GFR ranges from the 40s up into the 70s. His sodium and serum electrolytes were also reassuring and his volume status clinically did not suggest hypovolemia or intravascular depletion with no evidence of tachycardia or hypotension. Total bilirubin was within his normal range as well. Does not suggest obvious pneumonia at this time, hepatorenal syndrome, SBP or other concerning and serious conditions. Because of his recurrent ascites my suspicion is that he is having diaphragmatic irritation and and decreased diaphragmatic excursion because of his ascites. He also was encouraged to consume up to his 1500 mL daily limit of free water as apparently he has not been drinking much in the way of free water. He also has a chronic umbilical hernia which is easily reduced and not clinically concerning for incarceration etc. at this time. Medical Records I reviewed the patient's medical records. Prior hospitalization with hyponatremia. Lab Data I reviewed the patient's lab results. 01/08/24 18:51 01/08/24 18:51 Labs/Radiology: Radiology Impressions Chest X-Ray 01/08/24 21:08 IMPRESSION: As above. Laboratory Results WBC 6.46 10^3/uL (3.29-11.43) 01/08/24 18:51 RBC 2.90 10^6/uL (3.85-5.65) L 01/08/24 18:51 Hgb 10.80 g/dL (11.27-16.99) L 01/08/24 18:51 Hct 30.3 % (37-53) L 01/08/24 18:51 MCV 104.5 fl (82-101) H 01/08/24 18:51 MCH 37.2 pg (27-33) H 01/08/24 18:51 MCHC 35.6 g/dL (30-55) 01/08/24 18:51 RDW 18.4 % (12.1-15.1) H 01/08/24 18:51 Plt Count 112 10^3/cmm (157-399) L 01/08/24 18:51 MPV 9.9 fL (7.4-10.4) 01/08/24 18:51 Neut % (Auto) 69.1 % 01/08/24 18:51 Lymph % (Auto) 10.1 % 01/08/24 18:51 [place] % (Auto) 15.9 % 01/08/24 18:51 Eos % (Auto) 3.7 % 01/08/24 18:51 Baso % (Auto) 0.9 % 01/08/24 18:51 Neut # (Auto) 4.46 10^3/uL (1.8-7.7) 01/08/24 18:51 Lymph # (Auto) 0.7 10^3/uL (0.8-4.8) L 01/08/24 18:51 [place] # (Auto) 1.0 10^3/uL (0.2-0.9) H 01/08/24 18:51 Eos # (Auto) 0.2 10^3/uL (0.0-0.8) 01/08/24 18:51 Baso # (Auto) 0.1 10^3/uL (0.0-0.1) 01/08/24 18:51 Nucleated RBC % (auto) 0 % 01/08/24 18:51 Nucleated RBCs # 0.0 /100WBC 01/08/24 18:51 Sodium 131 mmol/L (136-145) L 01/08/24 18:51 Potassium 3.7 mmol/L (3.5-5.1) 01/08/24 18:51 Chloride 97 mmol/L (98-107) L 01/08/24 18:51 Carbon Dioxide 20 mmol/L (22-29) L 01/08/24 18:51 Anion Gap 17.7 (5-19) 01/08/24 18:51 BUN 17 mg/dL (6-20) 01/08/24 18:51 Creatinine 1.5 mg/dL (0.7-1.2) H 01/08/24 18:51 GFR Calculation 49.7 mL/min (90-130) L 01/08/24 18:51 Glucose 107 mg/dL (65-115) 01/08/24 18:51 Calculated Osmolality 274 mOsm/kg (285-295) L 01/08/24 18:51 Calcium 9.0 mg/dL (8.5-10.5) 01/08/24 18:51 Magnesium 1.8 mg/dL (1.7-2.3) 01/08/24 18:51 Total Bilirubin 2.9 mg/dL (0.15-1.2) H 01/08/24 18:51 AST 52 U/L (0-40) H 01/08/24 18:51 ALT 32 U/L (0-41) 01/08/24 18:51 Alkaline Phosphatase 119 U/L (40-130) 01/08/24 18:51 Total Protein 7.1 g/dL (6.6-8.7) 01/08/24 18:51 Albumin 4.0 g/dL (3.5-5.2) 01/08/24 18:51 Globulin 3.1 g/dL (1.3-4.6) 01/08/24 18:51 All radiology interpretation(s) finalized by discharge Discharge Plan Discharge Patient Disposition: Home Clinical Impression: Atelectasis pulmonary Abdominal ascites Qualifiers: Ascites type: due to alcoholic cirrhosis Qualified Code(s): K70.31 - Alcoholic cirrhosis of liver with ascites Condition: Stable Prescriptions: New albuterol sulfate [Ventolin HFA] 90 mcg/actuation HFA aerosol inhaler 2 inh inhalation Q6H PRN (Reason: shortness of breath or wheezing) Qty: 6.7 0RF No Action Xifaxan 200 mg Tablet 200 mg PO BID tramadol 50 mg tablet 50 mg PO Q8H PRN (Reason: pain) Qty: 14 0RF polyethylene glycol 3350 [Miralax] 17 gram Powder In Packet 17 g PO DAILY PRN (Reason: Constipation) metoclopramide HCl [Reglan] 5 mg tablet 5 mg PO BID PRN (Reason: nausea and vomiting) 7 Days Qty: 14 0RF ondansetron HCl 4 mg tablet 4 mg PO Q8H PRN (Reason: Nausea And Vomiting) 30 Days Qty: 30 0RF ciprofloxacin HCl 500 mg tablet 500 mg PO DAILY 30 Days Qty: 30 0RF midodrine 5 mg tablet 5 mg PO TID 30 Days Qty: 90 0RF pantoprazole 40 mg tablet,delayed release (DR/EC) 40 mg PO DAILY allopurinol 300 mg Tablet 300 mg PO DAILY Discharge Orders: Discharge ED (Routine); Ordered 01/08/24 Ordered By: Marcus Cai Referrals: Alia Sanchez MD [Primary Care Provider] - Discharge Diet: Usual diet Discharge Activity: Increase activity as tolerated Patient Instructions: Opioid Safety, Pain Management Activity Restrictions/Additional Instructions: As we discussed is important for you to call tomorrow to his for a paracentesis either tomorrow or the next day. Also provided an inhaler to help with your cough and congestion. If you develop fever increasing abdominal distention, decreased urinary output or any other concerns anytime return to the emergency department immediately. Otherwise follow-up with your regular physician for your continued workup for your abdominal ascites. Coding Level of Care Code ED Floor Layer Tile for Jess López
[2024-01-08] MEDS: ipratropium-albuterol 3 mL Neb INHALATION (22:41)
[2024-01-08] MEDS: albuterol 8 gm MDI 2 PUFF INHALATION (23:39)
[2024-01-09] VITALS: BP 113/60; PULSE 99; O2SAT 95
[2024-01-09 00:13] VITALS: BP 113/66; PULSE 97; O2SAT 94
== END 2024-01-09 00:11 | disposition home or self-care (01) ==
PROVIDERS: Emergency Medicine; Emergency Provider Emergency Medicine; PCP Family Medicine
DX: J98.11 Atelectasis (principal); K70.31 Alcoholic cirrhosis of liver with ascites; Z87.891 Personal history of nicotine dependence
CPT/HCPCS: 36415; 71045; 80053; 83735; 85025; 94640; 99284; J3535

== ENCOUNTER → 2024-01-09 12:28 | Day surgery (SDC) | payer OTHER, SELFPAY ==
[2024-01-09 12:45] VITALS: BP 111/77; PULSE 104; RESP 20; TEMP 36.9; O2SAT 98; BMI 25.4
--- NOTE | 2024-01-09 12:47 | US_ITS ---
WS: [id number] ULTRASOUND-GUIDED THERAPEUTIC AND DIAGNOSTIC PARACENTESIS Procedure, risks, and complications have been explained to the patient. Consent is obtained. Utilizing aseptic technique and 1% buffered lidocaine, a small dermatome was made through which a 5 F rench Yueh catheter was inserted. Approximately 6250 ml of clear peritoneal fluid was obtained witho ut difficulty. No complications encountered. Ascites specimen collected for analysis. US/US paracentesis abd w [id number] IMPRESSION: Uncomplicated paracentesis yielding 6250 ml of peritoneal fluid.
[2024-01-09] MEDS: albumin 25 G/100 ML BAG 60 G IV (14:16)
[2024-01-09 14:21] LABS: Mononuclear #, Pertinoneal Fl 0.078 10^3/uL; Polynuclear # Cells, Perit 0.015 10^3/uL; RBC Pertioneal Fluid 0 10^3/uL; WBC Peritoneal Fluid 93 /uL
[2024-01-09 14:45] LABS: Cyto Order Verification Order Verified; Pathology Referral Yes
[2024-01-09 14:46] LABS: Appearance, Peritoneal Fluid Hazy (Clear); Color, Peritoneal Fluid Yellow (Pale Yellow)
== END ==
PROVIDERS: Radiology Diagnostic Radiology; PCP Family Medicine; Visit Provider Internal Medicine Gastroenterology
PROC: (CPT 49082; principal; 2024-01-09 13:00)
DX: R18.8 Other ascites (principal)
CPT/HCPCS: 49083; 80503; 88305; 89050; 96365; P9046

== ENCOUNTER 2024-01-24 09:50 | Day surgery (SDC) | payer OTHER, SELFPAY ==
[2024-01-24 11:10] VITALS: BP 113/77; PULSE 111; RESP 18; TEMP 36.2; O2SAT 98
--- NOTE | 2024-01-24 11:36 | US_ITS ---
WS: [id number] ULTRASOUND-GUIDED THERAPEUTIC AND DIAGNOSTIC PARACENTESIS Procedure, risks, and complications have been explained to the patient. Consent is obtained. Utilizing aseptic technique and 1% buffered lidocaine, a small dermatome was made through which a 5 F rench Yueh catheter was inserted. Approximately 7900 ml of clear peritoneal fluid was obtained witho ut difficulty. No complications encountered. US/US paracentesis abd w [id number] IMPRESSION: Uncomplicated paracentesis yielding 7900 ml of peritoneal fluid.
[2024-01-24 12:15] VITALS: BMI 24.7
[2024-01-24] MEDS: albumin 25 G/100 ML BAG 60 G IV (12:56)
[2024-01-24 13:18] LABS: Cyto Order Verification No Order
[2024-01-24 13:24] LABS: Mononuclear #, Pertinoneal Fl 0.054 10^3/uL; Polynuclear # Cells, Perit 0.009 10^3/uL; RBC Pertioneal Fluid 0 10^3/uL; WBC Peritoneal Fluid 63 /uL
[2024-01-24 13:38] LABS: Appearance, Peritoneal Fluid Cloudy (Clear); Color, Peritoneal Fluid Pale Yellow (Pale Yellow)
[2024-01-24 13:39] LABS: Pathology Referral Yes
== END 2024-01-24 13:25 | disposition home or self-care (01) ==
LOC: GILAB 09:51
PROVIDERS: Internal Medicine Gastroenterology; Radiology Diagnostic Radiology; PCP Family Medicine
PROC: (CPT 49082; principal; 2024-01-24 13:00)
DX: R18.8 Other ascites (principal)
CPT/HCPCS: 49083; 80503; 87070; 87075; 87205; 89050; 96365; P9046

== ENCOUNTER 2024-01-24 10:33 | Outpatient (CLI) | payer OTHER, SELFPAY ==
[2024-01-24 11:31] LABS: Basophils % 0.6 %; Eosinophils # 0.1 10^3/uL (0.0-0.8); Eosinophils % 1.8 %; Hematocrit 30.4 % (37-53); Lymphocytes # 0.6 10^3/uL (0.8-4.8); Lymphocytes % 9.1 %; Mean Corpuscular HGB Conc 35.9 g/dL (30-55); Mean Corpuscular Hemoglobin 36.2 pg (27-33); Mean Platelet Volume 10.1 fL (7.4-10.4); Monocytes % 15.8 %; Neutrophils # 4.69 10^3/uL (1.8-7.7); Neutrophils % 72.2 %; Nucleated Red Blood Cells % 0 %; Platelet Count 159 10^3/cmm (157-399); Red Blood Count 3.01 10^6/uL (3.85-5.65); Red Cell Distribution Width 18.6 % (12.1-15.1)
[2024-01-24 11:47] LABS: Alanine Aminotransferase 28 U/L (0-41); Alkaline Phosphatase 149 U/L (40-130); Aspartate Amino Transferase 55 U/L (0-40); Blood Urea Nitrogen 17 mg/dL (6-20); Calcium 9.5 mg/dL (8.5-10.5); Carbon Dioxide 23 mmol/L (22-29); Chloride 95 mmol/L (98-107); Globulin 3.4 g/dL (1.3-4.6); Glucose 97 mg/dL (65-115); Osmolality Calculated 271 mOsm/kg (285-295); Sodium 130 mmol/L (136-145); Total Bilirubin 3.3 mg/dL (0.15-1.2); Total Protein 7.4 g/dL (6.6-8.7)
[2024-01-24 12:00] LABS: INR 1.29 (0.8-1.2)
[2024-01-24 12:02] LABS: Anion Gap 16.3 (5-19); Potassium 4.3 mmol/L (3.5-5.1)
== END 2024-01-24 10:34 | disposition home or self-care (01) ==
LOC: LAB 10:41
PROVIDERS: PCP Family Medicine; Visit Provider Internal Medicine Gastroenterology
DX: K74.60 Unspecified cirrhosis of liver (principal); R18.8 Other ascites
CPT/HCPCS: 36415; 80053; 82248; 85025; 85610

== ENCOUNTER 2024-01-31 12:13 | Inpatient (IN) | payer OTHER, SELFPAY ==
[2024-01-31] VITALS (9 sets, daily range): BP systolic 93–118; BP diastolic 47–72; PULSE 98–114; RESP 16–23; TEMP 36.7; O2SAT 95–99; BMI 22.8
--- NOTE | 2024-01-31 13:49 | ED_ITS ---
HPI - Nausea/Vomiting/Diarrhea 2 General: Chief complaint: Nausea/Vomiting/Diarrhea Stated complaint: can't eat and having stomach pain Time Seen by Provider: 01/31/24 13:16 History of Present Illness: 40-year-old male who [facility] complaining of abdominal distention nausea and vomiting. Patient has a history of alcoholic liver cirrhosis he had a paracentesis a week ago. Denies fever sweats chills denies dysuria urgency or frequency he has been vomiting no diarrhea. Denies fever. Associated nausea: Yes Associated symtoms: Reports nausea; Denies chest pain or dysuria Related Data Home Medications Medication Instructions Recorded Confirmed allopurinol 300 mg tablet 300 mg PO DAILY 06/29/23 01/31/24 pantoprazole 40 mg tablet,delayed 40 mg PO DAILY 06/29/23 01/31/24 release rifaximin 200 mg tablet (Xifaxan) 200 mg PO BID 12/13/23 01/31/24 polyethylene glycol 3350 17 gram 17 g PO DAILY PRN Constipation 12/29/23 01/31/24 oral powder packet (Miralax) mometasone 110 mcg/actuation(30 2 inh inhalation DAILY 01/31/24 01/31/24 doses) breath activated powder inhaler (Asmanex Twisthaler) Previous Rx's Medication Instructions Recorded tramadol 50 mg tablet 50 mg PO Q8H PRN pain #14 tabs 12/11/23 midodrine 5 mg tablet 5 mg PO TID 30 days #90 tabs 01/02/24 ondansetron HCl 4 mg tablet 4 mg PO Q8H PRN Nausea And 01/02/24 Vomiting 30 days #30 tabs albuterol sulfate 90 mcg/actuation 2 inh inhalation Q6H PRN shortness 01/08/24 aerosol inhaler (Ventolin HFA) of breath or wheezing #6.7 grams Allergies Allergy/AdvReac Type Severity Reaction Status Date / Time No Known Allergies Allergy Verified 01/31/24 12:30 Review of Systems 2 Const: Denies: fever(s) or chills Card: Denies: chest pain Resp: Denies: dyspnea GI: Reports: abdominal pain, nausea and vomiting; Denies: diarrhea : Denies: dysuria, urinary frequency or urinary urgency Musc: Denies: neck pain or back pain Skin/Breast: Denies: rash PFSH ED 2 PFSH: Medical History Acute hepatic failure Abdominal ascites Smoker Colitis Low oxygen saturation Enteropathy Smoking addiction Alcohol use disorder Thrombocytopenia Liver cirrhosis Hematuria Ascites due to alcoholic cirrhosis Abdominal pain 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 History of colon polyps Rectal polyp 10 and 15 cm, cecum biopsy Sigmoid colon polyp Seasonal allergies Splenomegaly Enterocolitis 2016 Surgical History Status post colonoscopy with polypectomy H/O esophagogastroduodenoscopy Vasectomy status H/O left inguinal hernia repair Family History Denies family history of Cancer Social History Smoking and tobacco/nicotine status: former use of tobacco/nicotine Alcohol intake: current Substance/Drug Use: never Lives independently: Yes Housing: House Marital status: Current occupation: [employer] Physical Exam 2 Const: COMMON NORMALS: no acute distress GENERAL APPEARANCE: cooperative and comfortable ORIENTATION/CONSCIOUSNESS: Yes awake, Yes oriented to person, Yes oriented to place and Yes oriented to time HENMT: COMMON NORMALS: normocephalic, atraumatic and hearing grossly normal bilaterally HEAD & SCALP: normocephalic and atraumatic Resp: COMMON NORMALS: normal respiratory effort, No retractions, No use of accessory muscles and clear to auscultation bilaterally AUSCULTATION: clear to auscultation bilaterally Cardio: COMMON NORMALS: regular rate, regular rhythm and No murmurs present (Cardio) RATE: regular rate RHYTHM: regular rhythm GI: INSPECTION: Yes abdominal distension and Yes Fluid wave present P ALPATION: Yes Ascites present PERCUSSION: Fluid wave present OTHER: Distended umbilical hernia with fluid Extremity: COMMON NORMALS: normal to inspection, capillary refill normal, no clubbing, cyanosis or edema, no calf tenderness and no pedal edema Neuro: SENSORIUM/ORIENTATION: Yes oriented to person, Yes oriented to place and Yes oriented to time Skin: COMMON NORMALS: no rashes or lesions noted GENERAL SKIN EXAM: no rashes or lesions noted Course 2 Vital Signs: Vital signs: Vital Signs Temperature 98.0 F 01/31/24 12:24 Pulse Rate 112 H 01/31/24 16:17 Respiratory Rate 19 H 01/31/24 16:08 Blood Pressure 109/68 01/31/24 16:17 Pulse Oximetry 98 01/31/24 16:17 Oxygen Delivery Me thod Room Air 01/31/24 16:17 MDM - Nausea/Vomiting/Diarrhea Medical Decision Making Labs and imaging reviewed patient has cystitis. There is a fair amount of ascites we did tap his abdomen paracentesis completed and cultures ordered. Started on ceftriaxone. Patient also noted to have hyponatremia. Discussed with hospitalist orders written Medical Records I reviewed the patient's medical records. Lab Data I reviewed the patient's lab results. 01/31/24 14:07 01/31/24 14:07 Laboratory Results WBC 11.11 10^3/uL (3.29-11.43) 01/31/24 14:07 RBC 2.87 10^6/uL (3.85-5.65) L 01/31/24 14:07 Hgb 10.50 g/dL (11.27-16.99) L 01/31/24 14:07 Hct 28.0 % (37-53) L 01/31/24 14:07 MCV 97.6 fl (82-101) 01/31/24 14:07 MCH 36.6 pg (27-33) H 01/31/24 14:07 MCHC 37.5 g/dL (30-55) 01/31/24 14:07 RDW 17.3 % (12.1-15.1) H 01/31/24 14:07 Plt Count 144 10^3/cmm (157-399) L 01/31/24 14:07 MPV 10.7 fL (7.4-10.4) H 01/31/24 14:07 Neut % (Auto) 73.7 % 01/31/24 14:07 Lymph % (Auto) 4.6 % 01/31/24 14:07 Rush % (Auto) 18.4 % 01/31/24 14:07 Eos % (Auto) 2.2 % 01/31/24 14:07 Baso % (Auto) 0.2 % 01/31/24 14:07 Neut # (Auto) 8.20 10^3/uL (1.8-7.7) H 01/31/24 14:07 Lymph # (Auto) 0.5 10^3/uL (0.8-4.8) L 01/31/24 14:07 Rush # (Auto) 2.0 10^3/uL (0.2-0.9) H 01/31/24 14:07 Eos # (Auto) 0.2 10^3/uL (0.0-0.8) 01/31/24 14:07 Baso # (Auto) 0.0 10^3/uL (0.0-0.1) 01/31/24 14:07 Nucleated RBC % (auto) 0 % 01/31/24 14:07 Nucleated RBCs # 0.0 /100WBC 01/31/24 14:07 PT 16.70 SECONDS (12.1-14.9) H 01/31/24 14:17 INR 1.30 (0.8-1.2) H 01/31/24 14:17 APTT 29.9 SECONDS (23.9-36.7) 01/31/24 14:17 Sodium 122 mmol/L (136-145) L 01/31/24 14:07 Potassium 4.0 mmol/L (3.5-5.1) 01/31/24 14:07 Chloride 88 mmol/L (98-107) L 01/31/24 14:07 Carbon Dioxide 17 mmol/L (22-29) L 01/31/24 14:07 Anion Gap 21.0 (5-19) H 01/31/24 14:07 BUN 31 mg/dL (6-20) H 01/31/24 14:07 Creatinine 3.7 mg/dL (0.7-1.2) H 01/31/24 14:07 GFR Calculation 17.5 mL/min (90-130) L 01/31/24 14:07 Glucose 128 mg/dL (65-115) H 01/31/24 14:07 Calculated Osmolality 262 mOsm/kg (285-295) L 01/31/24 14:07 Lactic Acid 2.9 mmol/L (0.5-2.2) H 01/31/24 14:07 Calcium 9.3 mg/dL (8.5-10.5) 01/31/24 14:07 Total Bilirubin 3.4 mg/dL (0.15-1.2) H 01/31/24 14:07 AST 58 U/L (0-40) H 01/31/24 14:07 ALT 30 U/L (0-41) 01/31/24 14:07 Alkaline Phosphatase 148 U/L (40-130) H 01/31/24 14:07 Ammonia 27 umol/L (16-60) 01/31/24 14:07 Total Protein 7.0 g/dL (6.6-8.7) 01/31/24 14:07 Albumin 3.7 g/dL (3.5-5.2) 01/31/24 14:07 Globulin 3.3 g/dL (1.3-4.6) 01/31/24 14:07 Lipase 40 U/L (13-60) 01/31/24 14:07 Urine Color Dark yellow (Yellow) A 01/31/24 14:58 Urine Appearance Cloudy (CLEAR) A 01/31/24 14:58 Urine pH 5.0 (5-7) 01/31/24 14:58 Ur Specific [place] 1.020 (1.005-1.030) 01/31/24 14:58 Urine Protein Trace (Negative) A 01/31/24 14:58 Urine Glucose (UA) Negative (Normal) 01/31/24 14:58 Urine Ketones Trace (Negative) 01/31/24 14:58 Urine Blood Negative (Negative) 01/31/24 14:58 Urine Nitrate Negative (Negative) 01/31/24 14:58 Urine Bilirubin 1+ (Negative) H 01/31/24 14:58 Urine Urobilinogen 1.0 mg/dL (Negative) 01/31/24 14:58 Ur Leukocyte Esterase Trace (Negative) A 01/31/24 14:58 Urine RBC 0-2 /hpf (0-2) 01/31/24 14:58 Urine WBC 6-10 /hpf (0-5) 01/31/24 14:58 Ur Squamous Epith Cells 6-10 /hpf (0-5) 01/31/24 14:58 Amorphous Sediment Not Reportable 01/31/24 14:58 Urine Bacteria None seen /hpf (NONE) 01/31/24 14:58 Hyaline Casts 43.84 /lpf 01/31/24 14:58 Ur Random Potassium 25 mmol/L 01/31/24 14:58 Fluid Color Pale yellow 01/31/24 16:15 Fluid Appearance Cloudy 01/31/24 16:15 Fluid Specific Grav 1.010 01/31/24 16:15 Fluid WBC 56 /uL 01/31/24 16:15 Fluid RBC 3.000 10^3/uL 01/31/24 16:15 Fld Polynuclear WBCs # 0.006 01/31/24 16:15 Fld Polynuclear WBCs % 10.700 % 01/31/24 16:15 Fl Mononucl WBCs #(Auto) 0.050 01/31/24 16:15 Fl Mononuclear % Auto 89.300 % 01/31/24 16:15 All radiology interpretation(s) finalized by discharge Discharge Plan Discharge Patient Disposition: Admitted As Inpatient Clinical Impression: Alcoholic cirrhosis of liver, Tobacco use disorder, Transaminitis, SBP (spontaneous bacterial peritonitis), Anemia Condition: Stable Prescriptions: No Action Xifaxan 200 mg Tablet 200 mg PO BID tramadol 50 mg tablet 50 mg PO Q8H PRN (Reason: pain) Qty: 14 0RF polyethylene glycol 3350 [Miralax] 17 gram Powder In Packet 17 g PO DAILY PRN (Reason: Constipation) ondansetron HCl 4 mg tablet 4 mg PO Q8H PRN (Reason: Nausea And Vomiting) 30 Days Qty: 30 0RF midodrine 5 mg tablet 5 mg PO TID 30 Days Qty: 90 0RF albuterol sulfate [Ventolin HFA] 90 mcg/actuation HFA aerosol inhaler 2 inh inhalation Q6H PRN (Reason: shortness of breath or wheezing) Qty: 6.7 0RF pantoprazole 40 mg tablet,delayed release (DR/EC) 40 mg PO DAILY allopurinol 300 mg Tablet 300 mg PO DAILY Asmanex Twisthaler 110 mcg/ actuation (30) Aerosol Powdr Breath Activated 2 inh INHALATION DAILY Rx Instructions: administer 1 hour before bedtime Referrals: Alia Sanchez MD [Primary Care Provider] - Patient Instructions: Opioid Safety, Pain Management Coding Level of Care Code ED Cargo Surveyor for Jess López
[2024-01-31 14:21] LABS: Basophils % 0.2 %; Eosinophils # 0.2 10^3/uL (0.0-0.8); Eosinophils % 2.2 %; Lymphocytes # 0.5 10^3/uL (0.8-4.8); Lymphocytes % 4.6 %; Mean Corpuscular HGB Conc 37.5 g/dL (30-55); Mean Corpuscular Hemoglobin 36.6 pg (27-33); Mean Corpuscular Volume 97.6 fl (82-101); Mean Platelet Volume 10.7 fL (7.4-10.4); Monocytes % 18.4 %; Neutrophils % 73.7 %; Nucleated Red Blood Cells % 0 %; Platelet Count 144 10^3/cmm (157-399); Red Blood Count 2.87 10^6/uL (3.85-5.65); Red Cell Distribution Width 17.3 % (12.1-15.1); White Blood Count 11.11 10^3/uL (3.29-11.43)
[2024-01-31] MEDS: ondansetron 2 mg/ML SDV 2 mL 4 MG IVP ×2 (14:22→22:59)
[2024-01-31 14:42] LABS: Alanine Aminotransferase 30 U/L (0-41); Albumin Level 3.7 g/dL (3.5-5.2); Alkaline Phosphatase 148 U/L (40-130); Aspartate Amino Transferase 58 U/L (0-40); Blood Urea Nitrogen 31 mg/dL (6-20); Calcium 9.3 mg/dL (8.5-10.5); Carbon Dioxide 17 mmol/L (22-29); Chloride 88 mmol/L (98-107); Creatinine Clr Calc Pharmacy 23.3155; Globulin 3.3 g/dL (1.3-4.6); Glomerular Filtration Rate 17.5 mL/min (90-130); Glucose 128 mg/dL (65-115); Lipase 40 U/L (13-60); Osmolality Calculated 262 mOsm/kg (285-295); Sodium 122 mmol/L (136-145); Total Bilirubin 3.4 mg/dL (0.15-1.2)
[2024-01-31 14:43] LABS: Partial Thromboplastin Time 29.9 SECONDS (23.9-36.7)
[2024-01-31 14:44] LABS: Ammonia 27 umol/L (16-60); Lactic Sepsis W/Reflex 2.9 mmol/L (0.5-2.2)
[2024-01-31 15:21] LABS: Bilirubin Urine 1+ (Negative); Blood Urine Negative (Negative); Glucose Urine UA Negative (Normal); Ketones Urine Trace (Negative); Leukocyte Esterase Urine Trace (Negative); Nitrate Urine Negative (Negative); Protein Urine Trace (Negative); Urine Appearance Cloudy (CLEAR); Urine Color Dark Yellow (Yellow)
--- NOTE | 2024-01-31 15:47 | US_ITS ---
WS: [id number] ULTRASOUND-GUIDED PARACENTESIS CLINICAL INFORMATION: Alcoholic liver cirrhosis, ascites COMPARISON: None. Procedure Informed consent: The risks, benefits, and alternatives of the procedure were discussed with the avi ent. Verbal and written consent was obtained. Timeout: A timeout was performed to confirm the correct patient, procedure, and site. Preparation: A suitable skin site was identified. The patient was prepped and draped in usual sterile fashion. Lidocaine 1% was used for local anesthesia. Catheter: 4 [place] One-step Yueh catheter. Side: LEFT lower quadrant. Fluid Volume: 6000 ml Color: Yellowish-orange DISPOSITION: Discarded safely. Complications: None. Patient disposition: Discharged from the department in stable condition. US/US paracentesis abd w [id number] IMPRESSION: Uncomplicated ultrasound-guided paracentesis. Removal of 6000 cc
[2024-01-31 15:51] LABS: Add Urine Microscopic? YES; Bacteria Urine None Seen /hpf; Hyaline Casts Urine 43.84 /lpf; RBC Urine 0-2 /hpf (0-2)
[2024-01-31 15:59] LABS: Reflex Lactate Order REFLEX LACTIC ORDERD
--- NOTE | 2024-01-31 16:16 | P.HP_ITS ---
Providers/Chief Complaint 2 Primary Care Provider: Alia Sanchez MD Chief Complaint: can't eat and having stomach pain History of Present Illness Chase Rivero is a 48 year old male with past medical history of alcoholic liver cirrhosis, esophageal varices, splenomegaly on transplant list who was recently hospitalized and discharged on January 01 when he was treated for a possible SBP, hepatorenal syndrome. Patient gets biweekly paracentesis with last paracentesis last week. He presents to the ER today because poor oral intake because of nausea, generalized weakness which has been getting worse along with dizziness. He denies any chest pain, runny nose, diarrhea, cough, dysuria, sick contacts. Denies any abdominal pain. Denies any recent changes in medications. States he has been taking prophylactic ciprofloxacin daily. States he is aware that his renal functions have been steadily getting worse recently. Review of Systems 2 General: Reports: 10 or more systems reviewed and unremarkable except in HPI and below Const: Denies: fever(s), chills, body aches, change in appetite, change in weight, malaise, night sweats, diaphoresis, change in sleep pattern, daytime sleepiness or snoring Eyes: Denies: change in vision, blurry vision, photophobia, eye discomfort or eye discharge ENMT: Denies: throat pain, enlarged tonsils, hoarseness, mouth pain, oral sores, dry mouth, tinnitus, nasal congestion or post nasal drip Card: Denies: chest pain, palpitations, irregular heart rhythm, edema, swelling of feet/ankles, lightheadedness, syncope, pre-syncope, dyspnea on exertion, orthopnea, leg pain with exertion or acrocyanosis Resp: Denies: dyspnea, productive cough, non-productive cough, wheezing, stridor, pain on inspiration, change in phlegm color, hemoptysis or chest congestion GI: Denies: abdominal pain, nausea, vomiting, hematemesis, coffee ground emesis, dysphagia, heartburn, diarrhea, constipation, bloating, GI cramping, change in bowel habits, pain on defecation, hematochezia or melena : Denies: flank pain, difficulty urinating, dysuria, urinary frequency, urinary urgency, urinary hesitancy, urinary dribbling, difficulty starting urination, change in urine stream, nocturia or hematuria Musc: Denies: neck pain, back pain, extremity pain, joint pain, joint swelling, joint redness, joint stiffness or limited range of motion Neuro: Denies: headache(s), numbness in extremities, weakness in extremities, sensory changes, lack of coordination, difficulty walking, frequent falls, dizziness, vertigo, confusion, Slurred speech present, difficulty communicating thoughts or seizure-like activity Psych: Denies: anxiety, depression, mood swings, panic attacks, hopelessness or irritability Endo: Denies: polyuria, polydipsia, tired all the time, cold intolerance, excessive sweating, flushing or heat intolerance Wu/Lymph: Denies: easy bruising or easy bleeding All/Imm: Denies: tongue swelling, facial swelling or acute wheezing Medications/Allergies Home Medications Medication Instructions Recorded Confirmed Last Taken Type allopurinol 300 mg tablet 300 mg PO DAILY 06/29/23 01/31/24 01/30/24 History pantoprazole 40 mg tablet,delayed 40 mg PO DAILY 06/29/23 01/31/24 01/30/24 History release tramadol 50 mg tablet 50 mg PO Q8H PRN pain #14 tabs 12/11/23 01/31/24 12/27/23 Rx rifaximin 200 mg tablet (Xifaxan) 200 mg PO BID 12/13/23 01/31/24 01/31/24 History polyethylene glycol 3350 17 gram 17 g PO DAILY PRN Constipation 12/29/23 01/31/24 Unknown History oral powder packet (Miralax) midodrine 5 mg tablet 5 mg PO TID 30 days #90 tabs 01/02/24 01/31/24 01/30/24 Rx ondansetron HCl 4 mg tablet 4 mg PO Q8H PRN Nausea And 01/02/24 01/31/24 01/31/24 Rx Vomiting 30 days #30 tabs albuterol sulfate 90 mcg/actuation 2 inh inhalation Q6H PRN shortness 01/08/24 01/31/24 Unknown Rx aerosol inhaler (Ventolin HFA) of breath or wheezing #6.7 grams mometasone 110 mcg/actuation(30 2 inh inhalation DAILY 01/31/24 01/31/24 01/30/24 History doses) breath activated powder inhaler (Asmanex Twisthaler) Allergies Allergy/AdvReac Type Severity Reaction Status Date / Time No Known Allergies Allergy Verified 01/31/24 12:30 PFSH Acute 2 PFSH: Medical History Acute hepatic failure Abdominal ascites Smoker Colitis Low oxygen saturation Enteropathy Smoking addiction Alcohol use disorder Thrombocytopenia Liver cirrhosis Hematuria Ascites due to alcoholic cirrhosis Abdominal pain 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 History of colon polyps Rectal polyp 10 and 15 cm, cecum biopsy Sigmoid colon polyp Seasonal allergies Splenomegaly Enterocolitis 2016 Surgical History Status post colonoscopy with polypectomy H/O esophagogastroduodenoscopy Vasectomy status H/O left inguinal hernia repair Family History Denies family history of Cancer Social History Smoking and tobacco/nicotine status: former use of tobacco/nicotine Alcohol intake: current Substance/Drug Use: never Lives independently: Yes Housing: House Marital status: 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 Vitals/I&O/Wt Last Vital Signs Temp 98.0 F 01/31/24 12: Pulse 106 H 01/31/24 16:08 Resp 19 H 01/31/24 16:08 BP 118/72 01/31/24 16:08 Pulse Ox 98 01/31/24 16:08 O2 Del Method Room Air 01/31/24 16:08 Weight last 48 hrs Weight 68.039 kg Physical Exam 2 Narrative: General: No acute distress, AO x3, cachectic, bitemporal wasting, chronically sick appearing, pallor present HEENT: PERRLA, pupils bilaterally equal and reactive Chest: Normal vesicular breath sounds, no added sounds, equal good air entry bilaterally CVS: S1-S2 regular, no murmurs, no tachycardia, no gallops, no rubs Abdomen: Soft, mild generalized tenderness, distended, no organomegaly, bowel sounds present Neuro: No focal deficits, no facial deformity, AO x3, power 5/5 in all limbs Data 01/31/24 14:07 01/31/24 14:07 Micro: Microbiology 01/31/24 14:17 Blood Culture - Preliminary Blood SPECIMEN COLLECTED 01/31/24 14:07 Blood Culture - Preliminary Blood SPECIMEN COLLECTED A&P Assessment and plan (1) Nausea: (2) Generalized weakness: (3) Hyponatremia: (4) Acute kidney injury: (5) High anion gap metabolic acidosis: (6) Alcoholic cirrhosis of liver: (7) SBP (spontaneous bacterial peritonitis): (8) Anemia: Plan 48-year-old male with past medical history of acute alcoholic liver cirrhosis on liver transplant list who gets biweekly paracentesis presents to the ER today because of generalized weakness, nausea found to be in LAQUITA and hyponatremia. Nausea/generalized weakness: Unknown etiology. Could be multifactorial. Could definitely be in setting of SBP or hyponatremia. Patient also has LAQUITA currently. Paracentesis. Rule out SBP. If getting large-volume paracentesis will give albumin along. Continue with empiric IV ceftriaxone for now. Takes prophylactic ciprofloxacin as an outpatient. Check blood culture, MRSA swab, urine culture, paracentesis fluid culture. Check CT abdomen pelvis. Hyponatremia: Acute on chronic. Baseline seems to be around 1 3-1 34. Currently 122. Could be in setting of dehydration. Patient has had recent poor oral intake. Cannot rule out in setting of SIADH but patient seems dehydrated for now. Start on gentle IV hydration with normal saline at 75 cc/h. Check BMP every 8 hours. Acute kidney injury: Baseline creatinine 1.1. Recently has been trending up over last 1 month. Currently 3.7. Check urinalysis. CT abdomen pelvis as above. Check urine lites, urine creatinine, urine eosinophils. Cannot rule out in setting of hepatorenal syndrome. Gentle IV hydration as above for now. BMP every 8 hours. Associated with high anion gap metabolic acidosis. Continue to monitor. Alcoholic cirrhosis: On transplant list. Continue with home dose of rifaximin. History of cardiorenal syndrome. Continue with midodrine at 10 mg 3 times daily. Goal blood pressure less than 140/90 mmHg. History of anemia: Hemoglobin stable currently. History of thrombocytopenia: Stable platelet counts. Monitor CBC daily. Full code Protonix for PUD prophylaxis Heparin 5000 Q12 for DVT prophylaxis. Attestations 2 Medical Necessity Statement*: Admission for more than 2 midnights for management of nausea and generalized weakness in setting of acute on chronic hyponatremia, LAQUITA in a patient with history of alcoholic liver cirrhosis on transplant list Diagnoses Nausea R11.0 Generalized weakness R53.1 Hyponatremia E87.1 Acute kidney injury N17.9 High anion gap metabolic acidosis E87.29 Alcoholic cirrhosis of liver K70.30 SBP (spontaneous bacterial peritonitis) K65.2 Anemia D64.9
[2024-01-31] MEDS: cefTRIAXone 1,000 mg SDV 2000 MG IVP (16:50)
[2024-01-31 16:56] LABS: Cyto Order Verification No Order
[2024-01-31] MEDS: albumin 25 G/100 ML BAG 60 G IV (16:56)
[2024-01-31 17:03] LABS: Body Fluid Polynuclear #Cells 0.006; Body Fluid WBC 56 /uL
[2024-01-31 17:04] LABS: Potassium, Radom Urine 25 mmol/L
--- NOTE | 2024-01-31 17:04 | PC.NURSE ---
per Dr. Wright and Dr. Law to clamp peritoneal suction. pt has had approx 6L output at this time. this nurse held 5,000 unit heparin admin at this time, per Dr. Wright, d/t parcentesis not being completed yet
[2024-01-31 17:11] LABS: Apprearance, Body Fluid CLOUDY; Color, Body Fluid PALE YELLOW
[2024-01-31 17:27] LABS: Iron 134 ug/dL (59-158); Percent Saturation 83.2 % (20-50); Total Iron Binding Capacity 161 mcg/dl; Unsaturated Iron Binding 27 ug/dL (112-347)
[2024-01-31 17:31] LABS: Alcohol Level < 10 mg/dL (0-10)
[2024-01-31 17:33] LABS: Fluid Alkaline Phos. 9 IU/L
[2024-01-31 17:33] LABS: Urine Random Chloride < 10 mmol/L; Urine Random Sodium < 10 mmol/L
[2024-01-31 17:34] LABS: Albumin Body Fluid 0.4 g/dL; Cholesterol Body Fluid 6 mg/dL (0-200); LDH Body Fluid 25 U/L; PATH Referral YES; Total Protein Body Fluid 0.6 g/dL; Triglycerides Body Fluid 42 mg/dL (0-150); Uric Acid Body Fluid 4 mg/dL
[2024-01-31] MEDS: sodium chloride 0.9% 1,000 ML 75 ML IV (17:36)
--- NOTE | 2024-01-31 17:36 | CTR_ITS ---
PROCEDURE INFORMATION: Exam: CT Abdomen And Pelvis Without Contrast Exam date and time: 01/31/2024 6:27 PM Age: 48 years old Clinical indication: Condition or disease; Liver condition; Cirrhosis; Additional info: Liver cirrhosis, shabana TECHNIQUE: Imaging protocol: Computed tomography of the abdomen and pelvis without contrast. Radiation optimization: All CT scans at this facility use at least one of these dose optimization techniques: automated exposure control; mA and/or kV adjustment per patient size (includes targeted exams where dose is matched to clinical indication); or iterative reconstruction. COMPARISON: CT abdomen pelvis w con* [id number] 12/11/2023 10:05 PM RADIATION DOSE METRICS: Total DLP (mGy-cm): 449.67 FINDINGS: Lungs: Patchy right basilar atelectasis. Heart: Heart size is within normal limits. There is no pericardial effusion or pericardial thickening. Liver: Stable cirrhotic morphology of the liver. Lack of intravenous contrast limits evaluation for mass. Gallbladder and biliary ducts: Gallstones again seen within the gallbladder. Pancreas: The pancreas is normal. Spleen: Stable splenomegaly. Adrenal glands: The adrenal glands are normal. Kidneys and ureters: No renal calcifications are identified. There is no hydronephrosis. Stomach and bowel: Stable diffuse thickening of the right colon likely related to portal hypertension. No evidence of large or small bowel obstruction. Appendix: A normal appendix is identified. Intraperitoneal space: Mild mesenteric edema and mild ascites, improved compared to prior study. Evaluation for inflammatory changes limited due to underlying mesenteric edema. No pneumoperitoneum. Vasculature: Atherosclerotic calcifications of the aorta are present. No aneurysm is identified. Lymph nodes: No enlarged lymph nodes are identified. Urinary bladder: The bladder is unremarkable. Reproductive: The prostate is grossly unremarkable. Bones/joints: No acute osseous abnormalities are seen. Soft tissues: Large periumbilical hernia containing fluid, decreased compared to prior. CT/CT abdomen pelvis wo con [id number] IMPRESSION: 1. Hepatic cirrhosis with evidence of portal hypertension again noted. Mildly improved mesenteric edema and ascites. 2. Other stable findings above.
[2024-01-31 17:41] LABS: Procalcitonin 0.29 ng/mL (0-0.5)
[2024-01-31 17:41] LABS: Lactic Acid level (Lactate) 3.1 mmol/L (0.5-2.2)
[2024-01-31] MEDS: rifaximin 200 mg Tablet PO (18:12)
[2024-01-31 18:13] LABS: Vitamin B12 > 2000 pg/mL (232-1245)
[2024-01-31 18:17] LABS: Fluid Laterality LEFT; pH Body Fluid 7.5
--- NOTE | 2024-01-31 21:26 | PC.NURSE ---
NURSE DID NOT GIVE HEPARIN PER VERBAL DR ORDER FROM DR. HERNANDEZ.
[2024-01-31] MEDS: midodrine 5 mg TABLET 10 MG PO (22:27)
--- NOTE | 2024-01-31 22:30 | PC.NURSE ---
Patient states he has only been taking his Midodrine at home twice a day, instead of three times a day because he was confused on the instructions for it.
[2024-01-31] MEDS: TRAMadol 50 mg Tablet PO (22:59)
[2024-02-01] VITALS (10 sets, daily range): BP systolic 91–103; BP diastolic 53–64; PULSE 84–98; RESP 16–17; TEMP 36.5–36.8; O2SAT 94–98; BMI 21.2
--- NOTE | 2024-02-01 02:40 | PC.NURSE ---
Patient c/o headache. Patient takes Tramadol at home. This order received from Dr. Cook to continue this. Headache not relieved from Tramadol. Patient requesting Tylenol. Patient educated that Tylenol isn't the best option for pain control due to him having liver cirrhosis. Patient verbalized understanding and stated he doesn't take it very often. PRN Tylenol given for headache. Patient stated that he felt dizzy getting up to the bathroom and stated that when he laid back down he felt like his heart was pounding. Heart rate 100 on telemetry, sinus rhythm. Orthostatic blood pressures obtained. Laying blood pressure 105/60, sitting blood pressure 101/56, standing blood pressure 93/55. Patient states he feels better now and his only complaint is a headache.
[2024-02-01 02:42] LABS: Basophils % 0.3 %; Eosinophils # 0.4 10^3/uL (0.0-0.8); Eosinophils % 4.2 %; Hematocrit 27.2 % (37-53); Lymphocytes # 0.5 10^3/uL (0.8-4.8); Lymphocytes % 5.3 %; Mean Corpuscular HGB Conc 37.1 g/dL (30-55); Mean Corpuscular Hemoglobin 36.5 pg (27-33); Mean Corpuscular Volume 98.2 fl (82-101); Mean Platelet Volume 10.4 fL (7.4-10.4); Monocytes # 1.8 10^3/uL (0.2-0.9); Monocytes % 19.1 %; Neutrophils # 6.78 10^3/uL (1.8-7.7); Neutrophils % 70.6 %; Nucleated Red Blood Cells % 0 %; Platelet Count 116 10^3/cmm (157-399); Red Blood Count 2.77 10^6/uL (3.85-5.65); Red Cell Distribution Width 17.2 % (12.1-15.1); White Blood Count 9.61 10^3/uL (3.29-11.43)
[2024-02-01 03:00] LABS: Alanine Aminotransferase 26 U/L (0-41); Albumin Level 3.8 g/dL (3.5-5.2); Alkaline Phosphatase 143 U/L (40-130); Anion Gap 17.7 (5-19); Aspartate Amino Transferase 54 U/L (0-40); Blood Urea Nitrogen 32 mg/dL (6-20); Carbon Dioxide 19 mmol/L (22-29); Chloride 93 mmol/L (98-107); Creatinine Clr Calc Pharmacy 22.0502; Globulin 2.7 g/dL (1.3-4.6); Glucose 106 mg/dL (65-115); Osmolality Calculated 269 mOsm/kg (285-295); Phosphorus 3.7 mg/dL (2.5-4.5); Potassium 3.7 mmol/L (3.5-5.1); Sodium 126 mmol/L (136-145); Total Bilirubin 2.7 mg/dL (0.15-1.2); Total Protein 6.5 g/dL (6.6-8.7)
[2024-02-01] MEDS: acetaminophen 325 mg Tablet 650 MG PO (03:00)
[2024-02-01 03:01] LABS: Cholesterol 152 mg/dL (0-200); HDL Cholesterol 31 mg/dL (60-100); LDL Cholesterol Calculated 106 mg/dL (50-129); LDL HDL Ratio 3.42 RATIO (0.00-3.22); Triglycerides 76 mg/dL (0-150)
[2024-02-01 03:05] LABS: Procalcitonin 0.27 ng/mL (0-0.5)
[2024-02-01 03:18] LABS: Folate Level 5.6 ng/mL (4.5-32.2)
[2024-02-01 04:09] LABS: Estmated Average Glucose 82; Hemoglobin A1C 4.5 % (4.0-6.0)
[2024-02-01] MEDS: sodium chloride 0.9% 1,000 ML 75 ML IV (05:50)
[2024-02-01] MEDS: midodrine 5 mg TABLET 10 MG PO ×3 (08:25→20:13)
[2024-02-01] MEDS: rifaximin 200 mg Tablet PO ×2 (08:25→17:11)
[2024-02-01] MEDS: pantoprazole DR 40 mg Tablet PO (08:25)
[2024-02-01 11:54] LABS: Sodium 126 mmol/L (136-145)
[2024-02-01] MEDS: albumin 25 G/100 ML BAG 60 G IV ×2 (13:16→20:13)
[2024-02-01] MEDS: sodium chloride 1 gm Tablet PO ×2 (13:16→17:11)
--- NOTE | 2024-02-01 15:19 | P.PN_ITS ---
Subjective 2 Subjective: No acute events overnight. Patient seen in his room with family at bedside. States he is feeling slightly better today. Dizziness is slightly improved. Denies any nausea, vomiting, headache. Complaining of central headache today. Vitals/I&O/Wt Last Vital Signs Temp 97.7 F 02/01/24 12:00 Pulse 85 02/01/24 12:00 Resp 16 02/01/24 09:14 BP 101/64 02/01/24 12:00 Pulse Ox 98 02/01/24 12:00 O2 Del Method Room Air 02/01/24 12:00 02/01/24 02/01/24 02/01/24 06:59 14:59 22:59 Intake Total 917.5 / 1137.5 240 / 240 Output Total 150 / 150 Balance 767.5 / 987.5 240 / 240 Weight last 48 hrs Weight 63.14 kg Weight 63.14 kg Weight 63.14 kg Weight 68.039 kg Physical Exam 2 Narrative: General: No acute distress, AO x3, cachectic, bitemporal wasting, chronically sick appearing, pallor present HEENT: PERRLA, pupils bilaterally equal and reactive Chest: Normal vesicular breath sounds, no added sounds, equal good air entry bilaterally CVS: S1-S2 regular, no murmurs, no tachycardia, no gallops, no rubs Abdomen: Soft, mild generalized tenderness, distended, no organomegaly, bowel sounds present Neuro: No focal deficits, no facial deformity, AO x3, power 5/5 in all limbs Data 02/01/24 02:20 02/01/24 11:14 Micro: Microbiology 01/31/24 14:17 Blood Culture - Preliminary Blood NEGATIVE TO DATE 01/31/24 14:07 Blood Culture - Preliminary Blood NEGATIVE TO DATE 01/31/24 14:58 Bacterial Antigens - Final Urine Kidney A&P Assessment and plan (1) Nausea: (2) Generalized weakness: (3) Hyponatremia: (4) Acute kidney injury: (5) High anion gap metabolic acidosis: (6) Alcoholic cirrhosis of liver: (7) SBP (spontaneous bacterial peritonitis): (8) Anemia: Plan 48-year-old male with past medical history of acute alcoholic liver cirrhosis on liver transplant list who gets biweekly paracentesis presents to the ER today because of generalized weakness, nausea found to be in LAQUITA and hyponatremia. Nausea/generalized weakness: Unknown etiology. Could be multifactorial. Most likely in setting of hyponatremia along with chronic liver failure. SBP less likely given fluid studies. Though patient was already on prophylactic ciprofloxacin so we will continue to follow body fluid culture for now. Continue with empiric IV ceftriaxone for now. Takes prophylactic ciprofloxacin as an outpatient. Follow-up blood culture, MRSA swab, urine culture, paracentesis fluid culture. Appreciate CT abdomen pelvis. Hyponatremia: Acute on chronic. Baseline seems to be around 1 26-1 30. Improving to 126 today. Repeat sodium levels in afternoon. If continues to remain stable will discontinue IV fluids. Start on oral salt tablets 1 g twice daily. Repeat urine lites. Check BMP every 8 hours. Acute kidney injury: Baseline creatinine 1.1. Recently has been trending up over last 1 month. Currently 3.7. Appreciate urinalysis. Cannot rule out in setting of hepatorenal syndrome. Continue with midodrine 10 mg oral 3 times daily. Add albumin every 8 hourly. BMP every 8 hours. Improvement in high anion gap metabolic acidosis. Continue to monitor. Alcoholic cirrhosis: On transplant list. Continue with home dose of rifaximin. History of cardiorenal syndrome. Continue with midodrine at 10 mg 3 times daily. Goal blood pressure less than 140/90 mmHg with mean over 65. History of anemia: Hemoglobin stable currently. History of thrombocytopenia: Stable platelet counts. Monitor CBC daily. Headache: Most likely in setting of migraine. Continue with home dose of tramadol. Can use Tylenol up to 1 g daily. Full code Protonix for PUD prophylaxis Heparin 5000 Q12 for DVT prophylaxis. Attestations 2 Medical Necessity Statement*: Requires further hospitalization for management of hyponatremia, LAQUITA on CKD in a patient with chronic liver cirrhosis on transplant list getting to dizziness with concerns of hepatorenal syndrome Diagnoses Nausea R11.0 Generalized weakness R53.1 Hyponatremia E87.1 Acute kidney injury N17.9 High anion gap metabolic acidosis E87.29 Alcoholic cirrhosis of liver K70.30 SBP (spontaneous bacterial peritonitis) K65.2 Anemia D64.9
[2024-02-01] MEDS: heparin 5,000 unit/mL INJ 1 mL 5000 UNIT SUBCUT (17:11)
[2024-02-01] MEDS: cefTRIAXone 1,000 mg SDV 1000 MG IVP (17:11)
--- NOTE | 2024-02-01 17:39 | PC.NURSE ---
Pt c/o headache this shift. Verbalizes want to avoid pain medications at this time.
[2024-02-01 17:45] LABS: Potassium, Radom Urine 18 mmol/L
[2024-02-01 18:24] LABS: Urine Random Chloride < 10 mmol/L; Urine Random Sodium < 10 mmol/L
[2024-02-01] MEDS: morphine 4 mg/mL SDV 1 mL 2 MG IVP (20:13)
[2024-02-01 20:54] LABS: Anion Gap 16.7 (5-19); Blood Urea Nitrogen 33 mg/dL (6-20); Calcium 9.1 mg/dL (8.5-10.5); Carbon Dioxide 20 mmol/L (22-29); Chloride 93 mmol/L (98-107); Creatinine Clr Calc Pharmacy 23.9402; Glomerular Filtration Rate 18.7 mL/min (90-130); Glucose 112 mg/dL (65-115); Osmolality Calculated 270 mOsm/kg (285-295); Potassium 3.7 mmol/L (3.5-5.1); Sodium 126 mmol/L (136-145)
[2024-02-01 21:40] LABS: Urine Creatinine 155 mg/dL (39-259)
[2024-02-01 22:05] LABS: Eosinophil Urine No Eosinophils Seen; Urine Eosinophil Count 0 (0-0)
[2024-02-02] VITALS (7 sets, daily range): BP systolic 101–107; BP diastolic 62–66; PULSE 77–91; RESP 15–19; TEMP 36.6–36.8; O2SAT 96–97; BMI 22.2
[2024-02-02] MEDS: albumin 25 G/100 ML BAG 60 G IV ×2 (04:03→12:52)
[2024-02-02] MEDS: heparin 5,000 unit/mL INJ 1 mL 5000 UNIT SUBCUT (04:04)
[2024-02-02 04:53] LABS: Basophils % 0.7 %; Eosinophils # 0.3 10^3/uL (0.0-0.8); Eosinophils % 4.7 %; Hematocrit 26.8 % (37-53); Lymphocytes # 0.6 10^3/uL (0.8-4.8); Lymphocytes % 10.6 %; Mean Corpuscular HGB Conc 35.8 g/dL (30-55); Mean Corpuscular Hemoglobin 36.1 pg (27-33); Mean Corpuscular Volume 100.8 fl (82-101); Mean Platelet Volume 11.1 fL (7.4-10.4); Monocytes % 18.5 %; Neutrophils # 3.61 10^3/uL (1.8-7.7); Nucleated Red Blood Cells % 0 %; Platelet Count 97 10^3/cmm (157-399); Red Blood Count 2.66 10^6/uL (3.85-5.65); Red Cell Distribution Width 17.3 % (12.1-15.1); White Blood Count 5.56 10^3/uL (3.29-11.43)
[2024-02-02 05:20] LABS: Alanine Aminotransferase 26 U/L (0-41); Albumin Level 4.1 g/dL (3.5-5.2); Alkaline Phosphatase 119 U/L (40-130); Anion Gap 17.9 (5-19); Aspartate Amino Transferase 52 U/L (0-40); Blood Urea Nitrogen 30 mg/dL (6-20); Calcium 9.2 mg/dL (8.5-10.5); Carbon Dioxide 18 mmol/L (22-29); Chloride 97 mmol/L (98-107); Creatinine Clr Calc Pharmacy 25.3911; Globulin 2.2 g/dL (1.3-4.6); Glucose 102 mg/dL (65-115); Osmolality Calculated 274 mOsm/kg (285-295); Potassium 3.9 mmol/L (3.5-5.1); Sodium 129 mmol/L (136-145); Total Bilirubin 2.7 mg/dL (0.15-1.2); Total Protein 6.3 g/dL (6.6-8.7)
[2024-02-02] MEDS: pantoprazole DR 40 mg Tablet PO (07:44)
[2024-02-02] MEDS: rifaximin 200 mg Tablet PO (07:44)
[2024-02-02] MEDS: sodium chloride 1 gm Tablet PO (07:44)
[2024-02-02] MEDS: midodrine 5 mg TABLET 10 MG PO ×2 (07:44→14:20)
[2024-02-02] MEDS: ondansetron 2 mg/ML SDV 2 mL 4 MG IVP ×2 (08:20→14:20)
--- NOTE | 2024-02-02 12:40 | P.DS_ITS ---
Discharge Providers Date of Admission: 01/31/24 19:46 Date of Discharge: February 02, 2024 Attending Provider at Admission: Brian Law MD Attending Provider at Discharge: Brian Law MD Primary Care Provider: Alia Sanchez MD Diagnoses at Discharge Discharge Diagnosis (1) Nausea: Status: Acute (2) Generalized weakness: Status: Acute (3) Hyponatremia: Status: Acute (4) Acute kidney injury: Status: Acute (5) High anion gap metabolic acidosis: Status: Acute (6) Alcoholic cirrhosis of liver: Status: Acute (7) SBP (spontaneous bacterial peritonitis): Status: Acute (8) Anemia: Status: Acute Reason for Visit Reason for Visit: can't eat and having stomach pain Hospital Course Hospital Course Chase Rivero is a 48 year old male with past medical history of alcoholic liver cirrhosis, esophageal varices, splenomegaly on transplant list who was recently hospitalized and discharged on January 01 when he was treated for a possible SBP, hepatorenal syndrome. Patient gets biweekly paracentesis with last paracentesis last week. He presents to the ER today because poor oral intake because of nausea, generalized weakness which has been getting worse along with dizziness. He denies any chest pain, runny nose, diarrhea, cough, dysuria, sick contacts. Denies any abdominal pain. Denies any recent changes in medications. States he has been taking prophylactic ciprofloxacin daily. States he is aware that his renal functions have been steadily getting worse recently. Patient was admitted to the hospital further evaluation and management of generalized weakness and dizziness. SBP was ruled out with paracentesis and fluid studies. He underwent 6 L of large-volume paracentesis. Fluid cultures so far negative. He was found to have hyponatremia in setting of combination of dehydration and mild SIADH. He was started on IV fluids after which his sodium levels improved to 126. His sodium levels further improved while being on salt tablets. Patient's dizziness has resolved. He continues to have LAQUITA without worsening of renal functions. He was started on a trial of abdomen along with home dose of midodrine with concerns for hepatorenal syndrome though did not show any improvement in kidney functions. He has been discharged hemodynamically stable condition on oral salt tablets for next 1 week with advised to follow-up with his PCP for repeat BMP to monitor sodium and creatinine levels. He should follow-up with tree and shrub technician as an outpatient. He will continue his prophylaxis for SBP. Physical Exam Narrative: General: No acute distress, AO x3, cachectic, bitemporal wasting, chronically sick appearing, pallor present HEENT: PERRLA, pupils bilaterally equal and reactive Chest: Normal vesicular breath sounds, no added sounds, equal good air entry bilaterally CVS: S1-S2 regular, no murmurs, no tachycardia, no gallops, no rubs Abdomen: Soft, mild generalized tenderness, distended, no organomegaly, bowel sounds present Neuro: No focal deficits, no facial deformity, AO x3, power 5/5 in all limbs Discharge Data Studies Completed and Pending Completed Studies During Hospitalization Category Date Time Status CT abdomen pelvis wo con [id number] Stat Cat Scan 01/31/24 17:36 Com[place]acentesis abd w [id number] Stat Ultrasound 01/31/24 15:47 Completed Pending at discharge Category Date Time Status Amylase, Peritoneal Fluid Routine Lab 01/31/24 16:15 Received Anaerobic Culture Routine Lab 01/31/24 16:15 Results Blood Culture Stat Lab 01/31/24 14:17 Results Body Fluid Culture & GS Routine Lab 01/31/24 16:15 Results Mycobacteria, Culture w/Fluor Routine Lab 01/31/24 16:15 Received Radiology Impressions Paracentesis Ultrasound 01/31/24 15:47 IMPRESSION: Uncomplicated ultrasound-guided paracentesis. Removal of 6000 cc Abdomen/Pelvis CT 01/31/24 17:36 IMPRESSION: 1. Hepatic cirrhosis with evidence of portal hypertension again noted. Mildly improved mesenteric edema and ascites. 2. Other stable findings above. Microbiology 01/31/24 16:15 Peritoneal Fluid Gram Stain - Final 01/31/24 16:15 Peritoneal Fluid Anaerobic Culture - Preliminary 01/31/24 16:15 Peritoneal Fluid Body Fluid Culture - Preliminary 01/31/24 14:17 Blood Blood Culture - Preliminary NEGATIVE TO DATE 01/31/24 14:07 Blood Blood Culture - Preliminary NEGATIVE TO DATE 01/31/24 14:58 Urine Kidney Bacterial Antigens - Final Laboratory Results WBC 5.56 10^3/uL (3.29-11.43) 02/02/24 04:23 RBC 2.66 10^6/uL (3.85-5.65) L 02/02/24 04:23 Hgb 9.60 g/dL (11.27-16.99) L 02/02/24 04:23 Hct 26.8 % (37-53) L 02/02/24 04:23 MCV 100.8 fl (82-101) 02/02/24 04:23 MCH 36.1 pg (27-33) H 02/02/24 04:23 MCHC 35.8 g/dL (30-55) 02/02/24 04:23 RDW 17.3 % (12.1-15.1) H 02/02/24 04:23 Plt Count 97 10^3/cmm (157-399) L 02/02/24 04:23 MPV 11.1 fL (7.4-10.4) H 02/02/24 04:23 Neut % (Auto) 65.0 % 02/02/24 04:23 Lymph % (Auto) 10.6 % 02/02/24 04:23 Spalding % (Auto) 18.5 % 02/02/24 04:23 Eos % (Auto) 4.7 % 02/02/24 04:23 Baso % (Auto) 0.7 % 02/02/24 04:23 Neut # (Auto) 3.61 10^3/uL (1.8-7.7) 02/02/24 04:23 Lymph # (Auto) 0.6 10^3/uL (0.8-4.8) L 02/02/24 04:23 Spalding # (Auto) 1.0 10^3/uL (0.2-0.9) H 02/02/24 04:23 Eos # (Auto) 0.3 10^3/uL (0.0-0.8) 02/02/24 04:23 Baso # (Auto) 0.0 10^3/uL (0.0-0.1) 02/02/24 04:23 Nucleated RBC % (auto) 0 % 02/02/24 04:23 Nucleated RBCs # 0.0 /100WBC 02/02/24 04:23 Differential Comment Yes 01/31/24 16:15 PT 16.70 SECONDS (12.1-14.9) H 01/31/24 14:17 INR 1.30 (0.8-1.2) H 01/31/24 14:17 APTT 29.9 SECONDS (23.9-36.7) 01/31/24 14:17 Sodium 129 mmol/L (136-145) L 02/02/24 04:23 Potassium 3.9 mmol/L (3.5-5.1) 02/02/24 04:23 Chloride 97 mmol/L (98-107) L 02/02/24 04:23 Carbon Dioxide 18 mmol/L (22-29) L 02/02/24 04:23 Anion Gap 17.9 (5-19) 02/02/24 04:23 BUN 30 mg/dL (6-20) H 02/02/24 04:23 Creatinine 3.3 mg/dL (0.7-1.2) H 02/02/24 04:23 GFR Calculation 20.0 mL/min (90-130) L 02/02/24 04:23 Glucose 102 mg/dL (65-115) 02/02/24 04:23 Estimat Average Glucose 82 02/01/24 02:20 Hemoglobin A1c 4.5 % (4.0-6.0) 02/01/24 02:20 Calculated Osmolality 274 mOsm/kg (285-295) L 02/02/24 04:23 Lactic Acid 2.9 mmol/L (0.5-2.2) H 01/31/24 14:07 Lactic Acid (Sepsis) 3.1 mmol/L (0.5-2.2) H 01/31/24 17:00 Calcium 9.2 mg/dL (8.5-10.5) 02/02/24 04:23 Phosphorus 3.7 mg/dL (2.5-4.5) 02/01/24 02:20 Magnesium 2.0 mg/dL (1.7-2.3) 02/01/24 02:20 Iron 134 ug/dL (59-158) 01/31/24 14:07 TIBC 161 mcg/dl 01/31/24 14:07 % Saturation 83.2 % (20-50) H 01/31/24 14:07 Unsat Iron Binding 27 ug/dL (112-347) L 01/31/24 14:07 Total Bilirubin 2.7 mg/dL (0.15-1.2) H 02/02/24 04:23 AST 52 U/L (0-40) H 02/02/24 04:23 ALT 26 U/L (0-41) 02/02/24 04:23 Alkaline Phosphatase 119 U/L (40-130) 02/02/24 04:23 Ammonia 27 umol/L (16-60) 01/31/24 14:07 Total Protein 6.3 g/dL (6.6-8.7) L 02/02/24 04:23 Albumin 4.1 g/dL (3.5-5.2) 02/02/24 04:23 Globulin 2.2 g/dL (1.3-4.6) 02/02/24 04:23 Triglycerides 76 mg/dL (0-150) 02/01/24 02:20 Cholesterol 152 mg/dL (0-200) 02/01/24 02:20 LDL Cholesterol, Calc 106 mg/dL (50-129) 02/01/24 02:20 HDL Cholesterol 31 mg/dL (60-100) L 02/01/24 02:20 LDL/HDL Ratio 3.42 RATIO (0.00-3.22) H 02/01/24 02:20 Cholesterol/HDL Ratio 4.90 mg/dL (1.0-5.00) 02/01/24 02:20 Lipase 40 U/L (13-60) 01/31/24 14:07 Vitamin B12 > 2000 pg/mL (232-1245) H 01/31/24 14:07 Folate 5.6 ng/mL (4.5-32.2) 02/01/24 02:20 Procalcitonin 0.27 ng/mL (0-0.5) 02/01/24 02:20 Urine Color Dark yellow (Yellow) A 01/31/24 14:58 Urine Appearance Cloudy (CLEAR) A 01/31/24 14:58 Urine pH 5.0 (5-7) 01/31/24 14:58 Ur Specific [place] 1.020 (1.005-1.030) 01/31/24 14:58 Urine Protein Trace (Negative) A 01/31/24 14:58 Urine Glucose (UA) Negative (Normal) 01/31/24 14:58 Urine Ketones Trace (Negative) 01/31/24 14:58 Urine Blood Negative (Negative) 01/31/24 14:58 Urine Nitrate Negative (Negative) 01/31/24 14:58 Urine Bilirubin 1+ (Negative) H 01/31/24 14:58 Urine Urobilinogen 1.0 mg/dL (Negative) 01/31/24 14:58 Ur Leukocyte Esterase Trace (Negative) A 01/31/24 14:58 Urine RBC 0-2 /hpf (0-2) 01/31/24 14:58 Urine WBC 6-10 /hpf (0-5) 01/31/24 14:58 Ur Eosinophil Smear 0 (0-0) 02/01/24 17:30 Ur Squamous Epith Cells 6-10 /hpf (0-5) 01/31/24 14:58 Amorphous Sediment Not Reportable 01/31/24 14:58 Urine Bacteria None seen /hpf (NONE) 01/31/24 14:58 Hyaline Casts 43.84 /lpf 01/31/24 14:58 Urine Eosinophils No eosinophils seen 02/01/24 17:30 Ur Random Sodium < 10 mmol/L 02/01/24 17:20 Ur Random Potassium 18 mmol/L 02/01/24 17:20 Ur Random Chloride < 10 mmol/L 02/01/24 17:20 Urine Creatinine 155 mg/dL (39-259) 02/01/24 17:30 Fluid Color Pale yellow 01/31/24 16:15 Fluid Appearance Cloudy 01/31/24 16:15 Fluid Specific Grav 1.010 01/31/24 16:15 Fluid pH 7.5 01/31/24 16:15 Fluid WBC 56 /uL 01/31/24 16:15 Fluid RBC 3.000 10^3/uL 01/31/24 16:15 Fld Polynuclear WBCs # 0.006 01/31/24 16:15 Fld Polynuclear WBCs % 10.700 % 01/31/24 16:15 Fl Mononucl WBCs #(Auto) 0.050 01/31/24 16:15 Fl Mononuclear % Auto 89.300 % 01/31/24 16:15 Fld Crystal Laterality Left 01/31/24 16:15 Fluid Glucose 131.0 mg/dL 01/31/24 16:15 Fluid Total Protein 0.6 g/dL 01/31/24 16:15 Fluid Albumin 0.4 g/dL 01/31/24 16:15 Fluid LDH 25 U/L 01/31/24 16:15 Fluid Alk Phosphatase 9 IU/L 01/31/24 16:15 Fluid Cholesterol 6 mg/dL (0-200) 01/31/24 16:15 Fluid Triglycerides 42 mg/dL (0-150) 01/31/24 16:15 Fluid Uric Acid 4 mg/dL 01/31/24 16:15 Ethyl Alcohol < 10 mg/dL (0-10) 01/31/24 14:07 Vitals Last Vital Signs Temp 97.9 F 02/02/24 11:51 Pulse 91 02/02/24 11:51 Resp 17 02/02/24 11:51 BP 104/62 02/02/24 11:51 Pulse Ox 96 02/02/24 11:51 O2 Del Method Room Air 02/02/24 11:51 Discharge Plan Discharge Patient Disposition: Home Condition: Stable Prescriptions: New sodium chloride 1,000 mg Tablet,Soluble 1,000 mg PO BID 10 Days Qty: 20 0RF Continued Xifaxan 200 mg Tablet 200 mg PO BID tramadol 50 mg tablet 50 mg PO Q8H PRN (Reason: pain) Qty: 14 0RF polyethylene glycol 3350 [Miralax] 17 gram Powder In Packet 17 g PO DAILY PRN (Reason: Constipation) ondansetron HCl 4 mg tablet 4 mg PO Q8H PRN (Reason: Nausea And Vomiting) 30 Days Qty: 30 0RF albuterol sulfate [Ventolin HFA] 90 mcg/actuation HFA aerosol inhaler 2 inh inhalation Q6H PRN (Reason: shortness of breath or wheezing) Qty: 6.7 0RF pantoprazole 40 mg tablet,delayed release (DR/EC) 40 mg PO DAILY allopurinol 300 mg Tablet 300 mg PO DAILY Asmanex Twisthaler 110 mcg/ actuation (30) Aerosol Powdr Breath Activated 2 inh INHALATION DAILY Rx Instructions: administer 1 hour before bedtime Changed midodrine 5 mg tablet 10 mg PO TID 30 Days Qty: 90 0RF Discharge Orders: Discharge Order (Routine); Ordered 02/02/24 Ordered By: Brian Law Referrals: Alia Sanchez MD [Primary Care Provider] - 7-10 days (We have notified your physician's clinic of the need for a follow-up appointment to be scheduled. If you have not heard from them within the next 2 business days, please call them directly. ) Discharge Diet: Regular Discharge Activity: Resume usual activity and Increase activity as tolerated Patient Instructions: Opioid Safety, Pain Management Activity Restrictions/Additional Instructions: Follow-up with a primary care provider within next 1 week. You should have a repeat BMP with your PCP to monitor for sodium and creatinine levels. You should follow-up with tree and shrub technician as an outpatient. Please request for referral from your outpatient PCP. Discharge Attestations Time Spent in Discharge Care*: greater than 30 min Specific Discharge Activities: educating patient, educating and/or supporting family/caregiver, discussing with pcp/other providers, discussing with cyanide case hardener/social workers/dc planners, documenting/other paperwork and evaluating patient/reviewing data Status at Discharge: Cognitive status at discharge: cognitively intact , Beh avioral status at discharge: cooperative , Functional status at discharge: uses cane/walker , Overall status at discharge: patient is back to baseline Quality Metrics Clinical Quality Measures [ No reported AMI, CVA or VTE this stay] Coding Level of Care Code 68447 Total time (in minutes) for Discharge: 60 Diagnoses Nausea R11.0 Generalized weakness R53.1 Hyponatremia E87.1 Acute kidney injury N17.9 High anion gap metabolic acidosis E87.29 Alcoholic cirrhosis of liver K70.30 SBP (spontaneous bacterial peritonitis) K65.2 Anemia D64.9
[2024-02-02] MEDS: morphine 4 mg/mL SDV 1 mL 2 MG IVP (12:58)
[2024-02-03 17:18] LABS: Amylase, Peritoneal Fluid <10 U/L
== END 2024-02-02 16:55 | disposition home or self-care (01) | DRG 644 ==
LOC: ER 18:23 → MEDSURG 19:47
PROVIDERS: Physician Assistant; Admitting Provider Student in an Organized Health Care Education/Training Program; Emergency Provider Family Medicine; PCP Family Medicine; Visit Provider Student in an Organized Health Care Education/Training Program
DX: E22.2 Syndrome of inappropriate secretion of antidiuretic hormone (principal); E87.20 Acidosis, unspecified; I85.10 Secondary esophageal varices without bleeding; N17.9 Acute kidney failure, unspecified; K70.31 Alcoholic cirrhosis of liver with ascites; F10.21 Alcohol dependence, in remission; R16.1 Splenomegaly, not elsewhere classified; E86.0 Dehydration; Z79.891 Long term (current) use of opiate analgesic; Z76.82 Awaiting organ transplant status; D69.59 Other secondary thrombocytopenia; Z86.018 Personal history of other benign neoplasm; Z87.891 Personal history of nicotine dependence; D64.9 Anemia, unspecified; I13.10 Hypertensive heart and chronic kidney disease without heart failure, with stage 1 through stage 4 chronic kidney disease, or unspecified chronic kidney disease; N18.9 Chronic kidney disease, unspecified
CPT/HCPCS: 36415; 49083; 74176; 80048; 80053; 80061; 80307; 80503; 81001; 82042; 82140; 82150; 82436; 82465; 82570; 82607; 82746; 82945; 83036; 83540; 83550; 83605; 83615; 83690; 83735; 83986; 84075; 84100; 84133; 84145; 84157; 84295; 84300; 84315; 84478; 84560; 85025; 85610; 85730; 85999; 86403; 87015; 87040; 87070; 87075; 87116; 87205; 87206; 87801; 89050; 94664; 96372; 96374; 96375; 99285; J0696; J1644; J2270; J2405; J7030; P9046

== ENCOUNTER 2024-02-07 10:34 | Outpatient (CLI) | payer OTHER, SELFPAY ==
[2024-02-07 11:08] LABS: Basophils # 0.1 10^3/uL (0.0-0.1); Basophils % 0.8 %; Eosinophils # 0.3 10^3/uL (0.0-0.8); Hematocrit 29.8 % (37-53); Lymphocytes # 0.5 10^3/uL (0.8-4.8); Lymphocytes % 6.3 %; Mean Corpuscular HGB Conc 35.9 g/dL (30-55); Mean Corpuscular Hemoglobin 36.5 pg (27-33); Mean Corpuscular Volume 101.7 fl (82-101); Mean Platelet Volume 11.1 fL (7.4-10.4); Monocytes # 0.8 10^3/uL (0.2-0.9); Monocytes % 10.8 %; Neutrophils # 5.68 10^3/uL (1.8-7.7); Neutrophils % 77.6 %; Nucleated Red Blood Cells % 0 %; Platelet Count 102 10^3/cmm (157-399); Red Blood Count 2.93 10^6/uL (3.85-5.65); Red Cell Distribution Width 18.2 % (12.1-15.1); White Blood Count 7.32 10^3/uL (3.29-11.43)
[2024-02-07 11:17] LABS: INR 1.22 (0.8-1.2)
[2024-02-07 11:22] LABS: Alanine Aminotransferase 30 U/L (0-41); Albumin Level 4.6 g/dL (3.5-5.2); Alkaline Phosphatase 121 U/L (40-130); Anion Gap 16.6 (5-19); Aspartate Amino Transferase 58 U/L (0-40); Blood Urea Nitrogen 37 mg/dL (6-20); Calcium 9.8 mg/dL (8.5-10.5); Carbon Dioxide 20 mmol/L (22-29); Chloride 97 mmol/L (98-107); Glomerular Filtration Rate 23.2 mL/min (90-130); Glucose 138 mg/dL (65-115); Osmolality Calculated 281 mOsm/kg (285-295); Potassium 3.6 mmol/L (3.5-5.1); Sodium 130 mmol/L (136-145); Total Bilirubin 3.3 mg/dL (0.15-1.2); Total Protein 7.6 g/dL (6.6-8.7)
== END 2024-02-07 10:35 | disposition home or self-care (01) ==
LOC: LAB 10:38
PROVIDERS: PCP Family Medicine; Visit Provider Internal Medicine Gastroenterology
DX: K74.60 Unspecified cirrhosis of liver (principal); R18.8 Other ascites
CPT/HCPCS: 36415; 80053; 82248; 85025; 85610

== ENCOUNTER → 2024-02-07 11:00 | Day surgery (SDC) | payer OTHER, SELFPAY ==
[2024-02-07 11:18] VITALS: BP 128/79; PULSE 100; RESP 16; TEMP 36.7; O2SAT 98; BMI 23.6
--- NOTE | 2024-02-07 11:30 | US_ITS ---
WS: [id number] ULTRASOUND-GUIDED THERAPEUTIC AND DIAGNOSTIC PARACENTESIS Procedure, risks, and complications have been explained to the patient. Consent is obtained. Utilizing aseptic technique and 1% buffered lidocaine, a small dermatome was made through which a 5 F rench Yueh catheter was inserted. Approximately 7000 ml of clear peritoneal fluid was obtained witho ut difficulty. No complications encountered. US/US paracentesis abd w [id number] IMPRESSION: Uncomplicated paracentesis yielding 7000 ml of peritoneal fluid.
[2024-02-07 13:08] LABS: Cyto Order Verification No Order
[2024-02-07 13:09] LABS: Appearance, Peritoneal Fluid Cloudy (Clear); Color, Peritoneal Fluid Yellow (Pale Yellow); Pathology Referral Yes
[2024-02-07 13:11] LABS: Mononuclear #, Pertinoneal Fl 0.058 10^3/uL; Polynuclear # Cells, Perit 0.006 10^3/uL; RBC Pertioneal Fluid 1 10^3/uL; WBC Peritoneal Fluid 64 /uL
== END ==
PROVIDERS: PCP Family Medicine; Visit Provider Internal Medicine Gastroenterology
PROC: (CPT 49082; principal; 2024-02-07 13:00)
DX: K74.60 Unspecified cirrhosis of liver (principal); R18.8 Other ascites
CPT/HCPCS: 49083; 80503; 87070; 87075; 87205; 89050; P9047

== ENCOUNTER 2024-02-07 18:03 | Emergency (ER) | payer OTHER, SELFPAY ==
[2024-02-07] VITALS (8 sets, daily range): BP systolic 91–112; BP diastolic 45–59; PULSE 83–114; RESP 16–24; TEMP 36.3; O2SAT 97–100; BMI 19.9
--- NOTE | 2024-02-07 18:17 | XRR_ITS ---
PROCEDURE INFORMATION: Exam: XR Abdomen Exam date and time: 02/07/2024 6:46 PM Age: 48 years old Clinical indication: Abdominal pain; Additional info: Abd pain TECHNIQUE: Imaging protocol: Radiologic exam of the abdomen. Views: Frontal supine view of the abdomen. 1 View. COMPARISON: CT abdomen pelvis con [id number] 01/31/2024 6:27 PM FINDINGS: Gastrointestinal tract: Scattered gas and stool in normal caliber colon and rectum. Multiple loops of gas distended small bowel in the mid abdomen measuring up to 3.2 cm with possible mild wall thickening. Intraperitoneal space: No visible pneumoperitoneum. Bones/joints: Unremarkable. XR/XR abdomen 1V* [id number] IMPRESSION: Dilated small bowel could represent enteritis, ileus, or partial distal obstruction. Radiographic follow-up recommended.
[2024-02-07 18:34] LABS: Basophils % 0.6 %; Eosinophils # 0.2 10^3/uL (0.0-0.8); Eosinophils % 2.9 %; Hematocrit 27.7 % (37-53); Lymphocytes # 0.5 10^3/uL (0.8-4.8); Lymphocytes % 7.1 %; Mean Corpuscular HGB Conc 36.1 g/dL (30-55); Mean Corpuscular Hemoglobin 36.1 pg (27-33); Mean Platelet Volume 10.7 fL (7.4-10.4); Monocytes % 13.9 %; Neutrophils # 5.22 10^3/uL (1.8-7.7); Neutrophils % 75.2 %; Nucleated Red Blood Cells % 0 %; Platelet Count 80 10^3/cmm (157-399); Red Blood Count 2.77 10^6/uL (3.85-5.65); Red Cell Distribution Width 17.8 % (12.1-15.1); White Blood Count 6.93 10^3/uL (3.29-11.43)
--- NOTE | 2024-02-07 18:41 | ED_ITS ---
Documented by User: Nelson MatatDO 02/07/24 20:19 HPI - Abdominal Pain 2 General: Chief Complaint: Abdominal Pain Stated Complaint: pain post parasentisis. pain below hernia Time Seen by Provider: 02/07/24 18:35 History of Present Illness: Presents to the ER with abdominal pain.The had a paracentesis done earlier today. They removed 7 L of fluid. Patient said this pain is all different than his normal pain. This pain is more little low abdomen below his umbilicus. Patient has had some mild nausea vomiting and vomiting x 1. Related Data Home Medications Medication Instructions Recorded Confirmed allopurinol 300 mg tablet 300 mg PO DAILY 06/29/23 02/07/24 pantoprazole 40 mg tablet,delayed 40 mg PO DAILY 06/29/23 02/07/24 release polyethylene glycol 3350 17 gram 17 g PO DAILY PRN Constipation 12/29/23 02/07/24 oral powder packet (Miralax) mometasone 110 mcg/actuation(30 2 inh inhalation DAILY 01/31/24 02/07/24 doses) breath activated powder inhaler (Asmanex Twisthaler) ciprofloxacin HCl 500 mg tablet 500 mg PO BID 02/06/24 02/07/24 metoclopramide HCl 5 mg tablet 5 mg PO BID PRN Nausea And Vomiting 02/06/24 02/07/24 midodrine 5 mg tablet 2 mg PO TID 02/06/24 02/07/24 rifaximin 550 mg tablet 550 mg PO BID 02/06/24 02/07/24 Previous Rx's Medication Instructions Recorded ondansetron HCl 4 mg tablet 4 mg PO Q8H PRN Nausea And 01/02/24 Vomiting 30 days #30 tabs albuterol sulfate 90 mcg/actuation 2 inh inhalation Q6H PRN shortness 01/08/24 aerosol inhaler (Ventolin HFA) of breath or wheezing #6.7 grams sodium chloride 1,000 mg soluble 1,000 mg PO BID 10 days #20 tabs 02/02/24 tablet tramadol 50 mg tablet 50 mg PO Q8H PRN pain #10 tabs 02/02/24 Allergies Allergy/AdvReac Type Severity Reaction Status Date / Time No Known Allergies Allergy Verified 02/07/24 18:15 Review of Systems 2 General: Reports: 10 or more systems reviewed and unremarkable except in HPI and below PFSH ED 2 PFSH: Medical History SBP (spontaneous bacterial peritonitis) Acute hepatic failure Abdominal ascites Smoker Colitis Low oxygen saturation Enteropathy Smoking addiction Alcohol use disorder Thrombocytopenia Liver cirrhosis Hematuria Ascites due to alcoholic cirrhosis Abdominal pain 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 History of colon polyps Rectal polyp 10 and 15 cm, cecum biopsy Sigmoid colon polyp Seasonal allergies Splenomegaly Enterocolitis 2016 Surgical History Status post colonoscopy with polypectomy H/O esophagogastroduodenoscopy Vasectomy status H/O left inguinal hernia repair Family History Denies family history of Cancer Social History Smoking and tobacco/nicotine status: former use of tobacco/nicotine Alcohol intake: current Substance/Drug Use: never Lives independently: Yes Housing: House Marital status: 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 Physical Exam 2 Const: COMMON NORMALS: no acute distress, average body habitus, patient oriented x3, no limitations, healthy appearing, alert and well nourished Neck/C-Spine: COMMON NORMALS: no JVD Chest: COMMONS NORMALS: normal inspection of the chest and normal palpation of entire chest wall Resp: COMMON NORMALS: normal respiratory effort, No retractions, No use of accessory muscles and clear to auscultation bilaterally AUSCULTATION: clear to auscultation bilaterally Cardio: COMMON NORMALS: no JVD, regular rate, regular rhythm, S1 normal heart sound present, S2 normal heart sound present, No gallops present (Cardio), No clicks present (Cardio), No murmurs present (Cardio) and No rub (Cardio) R ATE: regular rate RHYTHM: regular rhythm HEART SOUNDS: S1 normal heart sound present and S2 normal heart sound present GI: COMMON NORMALS: Normal to inspection, nondistended, normoactive bowel sounds present, Soft to palpation, No hepatosplenomegaly present and no masses; negative for non-tender (Mildly diffusely tender) PALPATION: Yes Soft to palpation and Yes No hepatosplenomegaly present Neuro: COMMON NORMALS: patient oriented x3 SENSORIUM/ORIENTATION: Yes alert Course 2 Vital Signs: Vital signs: Vital Signs Temperature 97.4 F L 02/07/24 18:08 Pulse Rate 91 02/08/24 02:16 Respiratory Rate 17 02/08/24 02:16 Blood Pressure 104/54 02/08/24 02:16 Pulse Oximetry 98 02/08/24 02:00 Oxygen Delivery Me thod Nasal Cannula 02/08/24 02:11 Oxygen Flow Rate 2 02/08/24 02:11 MDM - Abdominal Pain Medical Decision Making Lab work was reviewed, x-ray was reviewed all essentially benign per patient. Patient is given 4 mg of morphine 4 mg Zofran and is feeling much better. Anticipate patient be discharged. Lab Data 02/07/24 18:28 02/07/24 18:28 Labs/Radiology: Radiology Impressions Abdomen X-Ray 02/07/24 18:17 IMPRESSION: Dilated small bowel could represent enteritis, ileus, or partial distal obstruction. Radiographic follow-up recommended. Laboratory Results WBC 6.93 10^3/uL (3.29-11.43) 02/07/24 18: RBC 2.77 10^6/uL (3.85-5.65) L 02/07/24 18:28 Hgb 10.00 g/dL (11.27-16.99) L 02/07/24 18:28 Hct 27.7 % (37-53) L 02/07/24 18:28 MCV 100.0 fl (82-101) 02/07/24 18:28 MCH 36.1 pg (27-33) H 02/07/24 18:28 MCHC 36.1 g/dL (30-55) 02/07/24 18: RDW 17.8 % (12.1-15.1) H 02/07/24 18:28 Plt Count 80 10^3/cmm (157-399) L 02/07/24 18:28 MPV 10.7 fL (7.4-10.4) H 02/07/24 18:28 Neut % (Auto) 75.2 % 02/07/24 18:28 Lymph % (Auto) 7.1 % 02/07/24 18:28 [place] % (Auto) 13.9 % 02/07/24 18:28 Eos % (Auto) 2.9 % 02/07/24 18: Baso % (Auto) 0.6 % 02/07/24 18: Neut # (Auto) 5.22 10^3/uL (1.8-7.7) 02/07/24 18: Lymph # (Auto) 0.5 10^3/uL (0.8-4.8) L 02/07/24 18:28 [place] # (Auto) 1.0 10^3/uL (0.2-0.9) H 02/07/24 18:28 Eos # (Auto) 0.2 10^3/uL (0.0-0.8) 02/07/24 18: Baso # (Auto) 0.0 10^3/uL (0.0-0.1) 02/07/24 18: Nucleated RBC % (auto) 0 % 02/07/24 18: Nucleated RBCs # 0.0 /100WBC 02/07/24 18: PT 16.40 SECONDS (12.1-14.9) H 02/07/24 18: INR 1.27 (0.8-1.2) H 02/07/24 18: APTT 35.3 SECONDS (23.9-36.7) 02/07/24 18: Sodium 132 mmol/L (136-145) L 02/07/24 18: Potassium 3.7 mmol/L (3.5-5.1) 02/07/24 18: Chloride 99 mmol/L (98-107) 02/07/24 18: Carbon Dioxide 19 mmol/L (22-29) L 02/07/24 18:28 Anion Gap 17.7 (5-19) 02/07/24 18:28 BUN 36 mg/dL (6-20) H 02/07/24 18:28 Creatinine 2.9 mg/dL (0.7-1.2) H 02/07/24 18:28 GFR Calculation 23.2 mL/min (90-130) L 02/07/24 18:28 Glucose 121 mg/dL (65-115) H 02/07/24 18: Calculated Osmolality 284 mOsm/kg (285-295) L 02/07/24 18:28 Lactic Acid 3.5 mmol/L (0.5-2.2) H 02/07/24 18:28 Calcium 9.7 mg/dL (8.5-10.5) 02/07/24 18:28 Total Bilirubin 2.8 mg/dL (0.15-1.2) H 02/07/24 18:28 AST 49 U/L (0-40) H 02/07/24 18:28 ALT 24 U/L (0-41) 02/07/24 18:28 Alkaline Phosphatase 108 U/L (40-130) 02/07/24 18:28 Ammonia 38 umol/L (16-60) 02/07/24 18:28 Total Protein 7.0 g/dL (6.6-8.7) 02/07/24 18:28 Albumin 4.4 g/dL (3.5-5.2) 02/07/24 18:28 Globulin 2.6 g/dL (1.3-4.6) 02/07/24 18:28 Lipase 34 U/L (13-60) 02/07/24 18:28 XR interpretation done by ED provider, pending radiology final review Discharge Plan Discharge Patient Disposition: Xfer Short-Term Hosp Clinical Impression: Incarcerated umbilical hernia, Liver cirrhosis, Renal insufficiency Abdominal pain Qualifiers: Abdominal location: unspecified location Qualified Code(s): R10.9 - Unspecified abdominal pain Condition: Stable Discharge Orders: Discharge ED (Routine); Ordered 02/07/24 Ordered By: Nelson Clement Referrals: Alia Sanchez MD [Primary Care Provider] - Patient Instructions: Abdominal Pain (ED) Activity Restrictions/Additional Instructions: Thank you for choosing [facility] for your healthcare needs today. Please realize that you were seen in the emergency department and that we are providing you with an emergency medical screening exam and this may not be a complete and all exclusive of all testing and/or medical workup we may need to determine your element or severity of your illness. It is very important that you follow-up as instructed with your primary care provider or specialist for the additional evaluation and to discuss your medical treatment plan. You may return to the emergency department should you have concerns or if your condition changes or worsens in any way. Coding Level of Care Code ED Tank Refinisher for Chg Fwd Documented by User: Mary Garcias MD 02/08/24 04:04 HPI - Abdominal Pain 2 General: Chief Complaint: Abdominal Pain Stated Complaint: pain post parasentisis. pain below hernia Time Seen by Provider: 02/07/24 18:35 Related Data Home Medications Medication Instructions Recorded Confirmed allopurinol 300 mg tablet 300 mg PO DAILY 06/29/23 02/07/24 pantoprazole 40 mg tablet,delayed 40 mg PO DAILY 06/29/23 02/07/24 release polyethylene glycol 3350 17 gram 17 g PO DAILY PRN Constipation 12/29/23 02/07/24 oral powder packet (Miralax) mometasone 110 mcg/actuation(30 2 inh inhalation DAILY 01/31/24 02/07/24 doses) breath activated powder inhaler (Asmanex Twisthaler) ciprofloxacin HCl 500 mg tablet 500 mg PO BID 02/06/24 02/07/24 metoclopramide HCl 5 mg tablet 5 mg PO BID PRN Nausea And Vomiting 02/06/24 02/07/24 midodrine 5 mg tablet 2 mg PO TID 02/06/24 02/07/24 rifaximin 550 mg tablet 550 mg PO BID 02/06/24 02/07/24 Previous Rx's Medication Instructions Recorded ondansetron HCl 4 mg tablet 4 mg PO Q8H PRN Nausea And 01/02/24 Vomiting 30 days #30 tabs albuterol sulfate 90 mcg/actuation 2 inh inhalation Q6H PRN shortness 01/08/24 aerosol inhaler (Ventolin HFA) of breath or wheezing #6.7 grams sodium chloride 1,000 mg soluble 1,000 mg PO BID 10 days #20 tabs 02/02/24 tablet tramadol 50 mg tablet 50 mg PO Q8H PRN pain #10 tabs 02/02/24 Allergies Allergy/AdvReac Type Severity Reaction Status Date / Time No Known Allergies Allergy Verified 02/07/24 18:15 PFSH ED 2 PFSH: Medical History SBP (spontaneous bacterial peritonitis) Acute hepatic failure Abdominal ascites Smoker Colitis Low oxygen saturation Enteropathy Smoking addiction Alcohol use disorder Thrombocytopenia Liver cirrhosis Hematuria Ascites due to alcoholic cirrhosis Abdominal pain 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 History of colon polyps Rectal polyp 10 and 15 cm, cecum biopsy Sigmoid colon polyp Seasonal allergies Splenomegaly Enterocolitis 2016 Surgical History Status post colonoscopy with polypectomy H/O esophagogastroduodenoscopy Vasectomy status H/O left inguinal hernia repair Family History Denies family history of Cancer Social History Smoking and tobacco/nicotine status: former use of tobacco/nicotine Alcohol intake: current Substance/Drug Use: never Lives independently: Yes Housing: House Marital status: Current occupation: [employer] Course 2 Vital Signs: Vital signs: Vital Signs Temperature 97.4 F L 02/07/24 18:08 Pulse Rate 91 02/08/24 02:16 Respiratory Rate 17 02/08/24 02:16 Blood Pressure 104/54 02/08/24 02:16 Pulse Oximetry 98 02/08/24 02:00 Oxygen Delivery Me thod Nasal Cannula 02/08/24 02:11 Oxygen Flow Rate 2 02/08/24 02:11 MDM - Abdominal Pain Medical Decision Making Lab work was reviewed, x-ray was reviewed all essentially benign per patient. Patient is given 4 mg of morphine 4 mg Zofran and is feeling much better. Anticipate patient be discharged. Patient continued to have pain in slightly abnormal x-ray so CT scan was done. This showed some dilated small bowel that seem to have a transition point in the umbilical hernia. Attempted several times to reduce with just morphine. Patient attempted self reduction. We were not able to do any of this so I gave him some propofol and attempted again. Procedural sedation Time: 0200 Confirmed: Patient and procedure correct. Consent: Consent: The risks and benefits of monitored anesthesia care, including the risk of aspiration, nausea/vomiting and the risks of not performing the procedure, including severe pain and inability to complete the procedure, were all discussed with the patient. The alternatives of performing the procedure, including local anesthesia and IV analgesia, also discussed. The patient has a ride home available Indication: Closed reduction. Monitoring: Cardiac, blood pressure, continuous pulse oximetry. Preparation: Suction, IV access, Constant attendance, Supplemental oxygen. Physical exam: Airway: appears normal, Heart: regular rate and rhythm, Breath sounds: equal. Pre sedation vital signs: See nurse's notes. Procedural sedation: 70 mg IV propofol. . Post sedation vital signs: See nurse's notes. Patient tolerated: Well. Complications: The patient was recovered from the sedation without complication or incident. Post sedation condition: Patient returned to pre-sedation level of awareness. The monitoring was discontinued at this time. Performed by: Self. Notes: Pt attended by independent trained observer time of sedation was 15 minutes. . Attempted reduction of the hernia. However the ascites made this extremely difficult. I think it may have gotten it in and I am repeating a CT scan. Appears to have worsening signs of small bowel obstruction. Consultation: I spoke with Dr. Rosenbaum with surgery. He has come in and attempted reduction as well. He was unable to reduce. He recommends transfer to a tertiary care center. Assessment and plan: Incarcerated umbilical hernia Cirrhosis Ascites Renal insufficiency -I discussed the patient with emergency room physician at [facility] and the patient is being accepted there directly. Likely will need emergent surgery. - Discussed findings and plan with patient. Answered any questions. - All laboratory values were reviewed and interpreted personally by myself, the ER physician - All imaging was reviewed and interpreted personally by myself, the ER physician. - Evaluation and treatment of this problem were appropriate in the emergency setting Lab Data 02/07/24 18:28 02/07/24 18:28 Labs/Radiology: Radiology Impressions Abdomen X-Ray 02/07/24 18:17 IMPRESSION: Dilated small bowel could represent enteritis, ileus, or partial distal obstruction. Radiographic follow-up recommended. Laboratory Results WBC 6.93 10^3/uL (3.29-11.43) 02/07/24 18: RBC 2.77 10^6/uL (3.85-5.65) L 02/07/24 18:28 Hgb 10.00 g/dL (11.27-16.99) L 02/07/24 18: Hct 27.7 % (37-53) L 02/07/24 18: MCV 100.0 fl (82-101) 02/07/24 18: MCH 36.1 pg (27-33) H 02/07/24 18: MCHC 36.1 g/dL (30-55) 02/07/24 18: RDW 17.8 % (12.1-15.1) H 02/07/24 18: Plt Count 80 10^3/cmm (157-399) L 02/07/24 18: MPV 10.7 fL (7.4-10.4) H 02/07/24 18: Neut % (Auto) 75.2 % 02/07/24 18: Lymph % (Auto) 7.1 % 02/07/24 18: [place] % (Auto) 13.9 % 02/07/24 18: Eos % (Auto) 2.9 % 02/07/24 18: Baso % (Auto) 0.6 % 02/07/24 18: Neut # (Auto) 5.22 10^3/uL (1.8-7.7) 02/07/24 18: Lymph # (Auto) 0.5 10^3/uL (0.8-4.8) L 02/07/24 18: [place] # (Auto) 1.0 10^3/uL (0.2-0.9) H 02/07/24 18: Eos # (Auto) 0.2 10^3/uL (0.0-0.8) 02/07/24 18: Baso # (Auto) 0.0 10^3/uL (0.0-0.1) 02/07/24 18: Nucleated RBC % (auto) 0 % 02/07/24 18: Nucleated RBCs # 0.0 /100WBC 02/07/24 18: PT 16.40 SECONDS (12.1-14.9) H 02/07/24 18:28 INR 1.27 (0.8-1.2) H 02/07/24 18: APTT 35.3 SECONDS (23.9-36.7) 02/07/24 18: Sodium 132 mmol/L (136-145) L 02/07/24 18: Potassium 3.7 mmol/L (3.5-5.1) 02/07/24 18: Chloride 99 mmol/L (98-107) 02/07/24 18: Carbon Dioxide 19 mmol/L (22-29) L 02/07/24 18:28 Anion Gap 17.7 (5-19) 02/07/24 18:28 BUN 36 mg/dL (6-20) H 02/07/24 18:28 Creatinine 2.9 mg/dL (0.7-1.2) H 02/07/24 18:28 GFR Calculation 23.2 mL/min (90-130) L 02/07/24 18:28 Glucose 121 mg/dL (65-115) H 02/07/24 18:28 Calculated Osmolality 284 mOsm/kg (285-295) L 02/07/24 18:28 Lactic Acid 3.5 mmol/L (0.5-2.2) H 02/07/24 18:28 Calcium 9.7 mg/dL (8.5-10.5) 02/07/24 18:28 Total Bilirubin 2.8 mg/dL (0.15-1.2) H 02/07/24 18:28 AST 49 U/L (0-40) H 02/07/24 18:28 ALT 24 U/L (0-41) 02/07/24 18:28 Alkaline Phosphatase 108 U/L (40-130) 02/07/24 18:28 Ammonia 38 umol/L (16-60) 02/07/24 18:28 Total Protein 7.0 g/dL (6.6-8.7) 02/07/24 18:28 Albumin 4.4 g/dL (3.5-5.2) 02/07/24 18:28 Globulin 2.6 g/dL (1.3-4.6) 02/07/24 18:28 Lipase 34 U/L (13-60) 02/07/24 18:28 Discharge Plan Discharge Patient Disposition: Xfer Short-Term Hosp Clinical Impression: Incarcerated umbilical hernia, Liver cirrhosis, Renal insufficiency Abdominal pain Qualifiers: Abdominal location: unspecified location Qualified Code(s): R10.9 - Unspecified abdominal pain Condition: Stable Discharge Orders: Discharge ED (Routine); Ordered 02/07/24 Ordered By: Nelson Clement Referrals: Alia Sanchez MD [Primary Care Provider] - Patient Instructions: Abdominal Pain (ED) Activity Restrictions/Additional Instructions: Thank you for choosing [facility] for your healthcare needs today. Please realize that you were seen in the emergency department and that we are providing you with an emergency medical screening exam and this may not be a complete and all exclusive of all testing and/or medical workup we may need to determine your element or severity of your illness. It is very important that you follow-up as instructed with your primary care provider or specialist for the additional evaluation and to discuss your medical treatment plan. You may return to the emergency department should you have concerns or if your condition changes or worsens in any way. Coding Level of Care Code ED Tank Refinisher for Jess López
[2024-02-07 18:47] LABS: INR 1.27 (0.8-1.2)
[2024-02-07 18:48] LABS: Partial Thromboplastin Time 35.3 SECONDS (23.9-36.7)
[2024-02-07 18:53] LABS: Alanine Aminotransferase 24 U/L (0-41); Albumin Level 4.4 g/dL (3.5-5.2); Alkaline Phosphatase 108 U/L (40-130); Anion Gap 17.7 (5-19); Aspartate Amino Transferase 49 U/L (0-40); Blood Urea Nitrogen 36 mg/dL (6-20); Calcium 9.7 mg/dL (8.5-10.5); Carbon Dioxide 19 mmol/L (22-29); Chloride 99 mmol/L (98-107); Globulin 2.6 g/dL (1.3-4.6); Glomerular Filtration Rate 23.2 mL/min (90-130); Glucose 121 mg/dL (65-115); Lipase 34 U/L (13-60); Osmolality Calculated 284 mOsm/kg (285-295); Potassium 3.7 mmol/L (3.5-5.1); Sodium 132 mmol/L (136-145); Total Bilirubin 2.8 mg/dL (0.15-1.2)
[2024-02-07 18:54] LABS: Lactic Sepsis W/Reflex 3.5 mmol/L (0.5-2.2)
[2024-02-07 18:57] LABS: Ammonia 38 umol/L (16-60)
[2024-02-07] MEDS: ondansetron 2 mg/ML SDV 2 mL 4 MG IVP (19:07)
--- NOTE | 2024-02-07 19:09 | PC.NURSE ---
GAVE MORPHINE TO PT AFTER CONSULTATION WITH . JEREMIAS BP WAS 96/45, HR 83, AND SPO2 99%
[2024-02-07] MEDS: morphine 4 mg/mL SDV 1 mL IVP ×2 (19:12→23:03)
[2024-02-07 20:19] LABS: Reflex Lactate Order REFLEX LACTIC ORDERD
--- NOTE | 2024-02-07 21:24 | PC.NURSE ---
NURSE CONSULTED WITH DR. MIDDLETON BEFORE PT LEFT, DR. MIDDLETON EXPLAINED THAT HE WAS GIVING REPORT FOR THE PT TO DR. YU. NURSE AND DR. YU CONSULTED AND DR. YU SAID TO D/C PT.
--- NOTE | 2024-02-07 21:33 | CTR_ITS ---
PROCEDURE INFORMATION: Exam: CT Abdomen And Pelvis Without Contrast Exam date and time: 02/07/2024 9:45 PM Age: 48 years old Clinical indication: Abdominal pain TECHNIQUE: Imaging protocol: Computed tomography of the abdomen and pelvis without contrast. Radiation optimization: All CT scans at this facility use at least one of these dose optimization techniques: automated exposure control; mA and/or kV adjustment per patient size (includes targeted exams where dose is matched to clinical indication); or iterative reconstruction. COMPARISON: CT abdomen pelvis con [id number] 01/31/2024 6:27 PM RADIATION DOSE METRICS: Total DLP (mGy-cm): 452.23 FINDINGS: Liver: Severely cirrhotic liver with stable ill-defined hypodensities throughout the left lobe. Gallbladder and biliary ducts: Hyperdense sludge versus tiny stones in the gallbladder. No wall thickening. The bile ducts are normal. Pancreas: Normal. No ductal dilation. Spleen: Splenomegaly measuring 15.4 cm. Adrenal glands: Normal. No mass. Kidneys and ureters: Atrophic left kidney. The kidneys are otherwise unremarkable. No calculus or hydronephrosis. Stomach and bowel: Food distended stomach without definite wall thickening. Multiple dilated loops of proximal and mid small bowel measuring up to 3.2 cm with transition point in a 9.3 cm umbilical hernia containing a short loop of obstructed small bowel. The small bowel is decompressed distal to the hernia. Small amount of scattered gas in the colon. Appendix: No evidence of appendicitis. Intraperitoneal space: Stable moderate ascites. No pneumoperitoneum. Diffuse mesenteric edema. Vasculature: Portal venous hypertension with a recanalized umbilical vein and splenic hilar and mild gastroesophageal varices. Calcified arterial plaque. No aneurysm. Lymph nodes: Small retroperitoneal lymph nodes are most likely reactive. Urinary bladder: Unremarkable as visualized. Reproductive: Unremarkable as visualized. Bones/joints: Degenerative changes in the spine with multiple Schmorl's nodes. No acute fracture. Soft tissues: Gynecomastia. Right inguinal hernia containing ascites. CT/CT abdomen pelvis wo con [id number] IMPRESSION: 1. Mid small bowel obstruction which may be partial, due to a herniated loop of bowel within a large umbilical hernia. 2. Severe liver cirrhosis with stable ill-defined hypodensities in the left lobe. This could represent fibrosis but underlying neoplasm cannot be excluded. Consider evaluation with liver MRI. 3. Portal venous hypertension with varices. 4. Splenomegaly. 5. Stable moderate ascites.
[2024-02-08] VITALS (23 sets, daily range): BP systolic 96–117; BP diastolic 45–65; PULSE 87–137; RESP 10–23; O2SAT 94–100
[2024-02-08] MEDS: ondansetron 2 mg/ML SDV 2 mL 4 MG IVP (01:43)
[2024-02-08] MEDS: propofol 10 mg/mL SDV 20 mL 50 MG IVP (02:04)
--- NOTE | 2024-02-08 02:09 | CTR_ITS ---
PROCEDURE INFORMATION: Exam: CT Abdomen And Pelvis Without Contrast Exam date and time: 02/08/2024 2:31 AM Age: 48 years old Clinical indication: Nausea and vomiting; Prior surgery; Surgery date: 6+ months; Surgery type: Left inguinal hernia; Additional info: Abdominal pain, difficult to reduce hernia TECHNIQUE: Imaging protocol: Computed tomography of the abdomen and pelvis without contrast. Radiation optimization: All CT scans at this facility use at least one of these dose optimization techniques: automated exposure control; mA and/or kV adjustment per patient size (includes targeted exams where dose is matched to clinical indication); or iterative reconstruction. COMPARISON: CT abdomen pelvis wo con [id number] 02/07/2024 9:45 PM RADIATION DOSE METRICS: Total DLP (mGy-cm): 476.27 FINDINGS: Lungs: Lung bases are clear as visualized. Liver: There is a nodular contour to the liver compatible with cirrhosis. Subtle hypodensity is again noted involving the left lobe of the liver which could be related to fibrosis or tumor. Gallbladder and biliary ducts: There are gallstones within the gallbladder. Pancreas: Normal. No ductal dilation. Spleen: The spleen measures 14.6 cm in size (previously 14.6 cm) Adrenal glands: Normal. No mass. Kidneys and ureters: The left kidney is somewhat atrophic when compared to the right. No renal calculi are identified. No hydronephrosis is noted. Stomach and bowel: There are mildly dilated loops of small bowel within the upper abdomen and midabdomen. Transition point appears to be a bowel loop extending through a periumbilical hernia defect. There is very mild wall thickening involving the colon and stomach. Findings could be related to a gastritis and colitis or could be related to a hepatic gastropathy and colopathy. No appreciable small bowel wall thickening is identified. Appendix: The appendix is not definitely identified. Intraperitoneal space: There is moderate volume ascites. No free air is identified. Vasculature: The aorta is normal in caliber. There is calcified plaque involving the aorta and its branch vessels. There are gastrohepatic and gastrosplenic ligament varices. Lymph nodes: Unremarkable. No enlarged lymph nodes. Urinary bladder: Unremarkable as visualized. Reproductive: Unremarkable as visualized. Bones/joints: Unremarkable. No acute fracture. Soft tissues: There is ascitic fluid extending into the right inguinal canal through a small right inguinal hernia. Periumbilical hernia measures 2.8 cm in transverse dimension. The hernia is filled with a loop of bowel as well as ascites. CT/CT abdomen pelvis wo con [id number] IMPRESSION: 1. Cirrhosis with portal hypertension. Hypodensity within the left lobe of the liver could be related to fibrosis or tumor. 2. Periumbilical hernia filled with a loop of small bowel as well as ascitic fluid. There is mild proximal small bowel dilatation suggesting this may represent a transition point to a bowel obstruction/partial bowel obstruction. Findings are similar in this regard when compared to prior day's exam. 3. Cholelithiasis. 4. Moderate volume ascites. 5. Mild wall thickening involving the stomach and large bowel. Findings could be related to a gastritis and colitis or could be related to a hepatic gastropathy and colopathy. 6. Right inguinal hernia defect filled with ascitic fluid.
--- NOTE | 2024-02-08 02:21 | PC.NURSE ---
140 mg of propofol wasted with Logan LAURA.
[2024-02-08] MEDS: morphine 4 mg/mL SDV 1 mL IVP (03:16)
--- NOTE | 2024-02-08 03:25 | P.CONIM_ITS ---
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 Patient had drainage of 7 L of ascites today at the hospital and after that he noticed that his umbilical hernia appeared to be incarcerated and was unable to be reduced, progressively got worse during the day developing nausea. Presented to the ED where it shows a incarcerated umbilical hernia on the CAT scan with a proximal obstruction. Several attempts have been made to reduce the hernia I was calling to evaluate for possible need of additional intervention. Review of Systems 2 General: Reports: 10 or more systems reviewed and unremarkable except in HPI and below Medications/Allergies Home Medications Medication Instructions Recorded Confirmed Last Taken Type allopurinol 300 mg tablet 300 mg PO DAILY 06/29/23 02/07/24 02/06/24 History pantoprazole 40 mg tablet,delayed 40 mg PO DAILY 06/29/23 02/07/24 02/06/24 History release polyethylene glycol 3350 17 gram 17 g PO DAILY PRN Constipation 12/29/23 02/07/24 Unknown History oral powder packet (Miralax) ondansetron HCl 4 mg tablet 4 mg PO Q8H PRN Nausea And 01/02/24 02/07/24 02/07/24 Rx Vomiting 30 days #30 tabs albuterol sulfate 90 mcg/actuation 2 inh inhalation Q6H PRN shortness 01/08/24 02/07/24 02/06/24 Rx aerosol inhaler (Ventolin HFA) of breath or wheezing #6.7 grams mometasone 110 mcg/actuation(30 2 inh inhalation DAILY 01/31/24 02/07/24 02/06/24 History doses) breath activated powder inhaler (Asmanex Twisthaler) sodium chloride 1,000 mg soluble 1,000 mg PO BID 10 days #20 tabs 02/02/24 02/07/24 02/07/24 Rx tablet tramadol 50 mg tablet 50 mg PO Q8H PRN pain #10 tabs 02/02/24 02/07/24 02/05/24 Rx ciprofloxacin HCl 500 mg tablet 500 mg PO BID 02/06/24 02/07/24 02/06/24 History metoclopramide HCl 5 mg tablet 5 mg PO BID PRN Nausea And Vomiting 02/06/24 02/07/24 Unknown History midodrine 5 mg tablet 2 mg PO TID 02/06/24 02/07/24 02/07/24 History rifaximin 550 mg tablet 550 mg PO BID 02/06/24 02/07/24 02/07/24 History Allergies Allergy/AdvReac Type Severity Reaction Status Date / Time No Known Allergies Allergy Verified 02/07/24 18:15 PFSH Acute 2 PFSH: Medical History SBP (spontaneous bacterial peritonitis) Acute hepatic failure Abdominal ascites Smoker Colitis Low oxygen saturation Enteropathy Smoking addiction Alcohol use disorder Thrombocytopenia Liver cirrhosis Hematuria Ascites due to alcoholic cirrhosis Abdominal pain 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 History of colon polyps Rectal polyp 10 and 15 cm, cecum biopsy Sigmoid colon polyp Seasonal allergies Splenomegaly Enterocolitis 2016 Surgical History Status post colonoscopy with polypectomy H/O esophagogastroduodenoscopy Vasectomy status H/O left inguinal hernia repair Family History Denies family history of Cancer Social History Smoking and tobacco/nicotine status: former use of tobacco/nicotine Alcohol intake: current Substance/Drug Use: never Lives independently: Yes Housing: House 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 Data 02/07/24 18:28 02/07/24 18:28 A&P Assessment and plan (1) Liver cirrhosis: Qualifiers: Ascites presence: with ascites Hepatic cirrhosis type: unspecified hepatic cirrhosis Qualified Code(s): K74.60 - Unspecified cirrhosis of liver; R18.8 - Other ascites (2) Thrombocytopenia: (3) Acute hepatic failure: (4) Hyperbilirubinemia: (5) Cirrhosis: (6) Abdominal pain: Qualifiers: Abdominal location: unspecified location Qualified Code(s): R10.9 - Unspecified abdominal pain (7) Umbilical hernia: Plan 48-year-old male with incarcerated umbilical hernia causing obstruction in the setting of cirrhosis of the liver, varices of the GI tract and refractory ascites. At this point conservative treatment has failed, patient will require surgical intervention as the hernia may progress to a strangulation if it is unable to be Reduced. Due to the medical complexity of the patient And significant comorbidities including end-stage Liver disease and refractory ascites patient will require transfer to higher level of care for management. he Will require specialized care for the perioperative management of his ascites and liver failure, Including a dedicated GI/hepatology team,Patient most likely will require medical optimization of his ascites as well as possible intraperitoneal drain to drain the ascites in the perioperative period.I think at this point repair is the only option as he can progress to strangulation if the hernia is not repaired. I have discussed the findings with the patient and family member as well as with the ER staff. Coding Level of Care Code Acute Code for [facility] Fwd Diagnoses Liver cirrhosis K74.60; R18.8 Ascites presence: with ascites Hepatic cirrhosis type: unspecified hepatic cirrhosis Thrombocytopenia D69.6 Acute hepatic failure K72.00 Hyperbilirubinemia E80.6 Abdominal pain R10.9 Abdominal location: unspecified location Umbilical hernia K42.9
--- NOTE | 2024-02-08 04:32 | XRR_ITS ---
PROCEDURE INFORMATION: Exam: XR Abdomen Exam date and time: 02/08/2024 4:32 AM Age: 48 years old Clinical indication: Device placement; Gi device; Nasogastric tube; Additional info: Tube placement TECHNIQUE: Imaging protocol: Radiologic exam of the abdomen. Views: Frontal supine view of the abdomen. 1 View. COMPARISON: CT abdomen pelvis con [id number] 02/08/2024 2:31 AM FINDINGS: Tubes, catheters and devices: Nasogastric tube is present with its tip within the stomach. The proximal side-hole is at the GE junction. Recommend advancement by 5-6 cm. Gastrointestinal tract: There are dilated loops of small bowel within the upper abdomen. Bones/joints: Unremarkable. XR/XR KUB portable [id number] IMPRESSION: 1. Nasogastric tube as above.
== END 2024-02-08 05:05 | disposition short-term general hospital (02) ==
PROVIDERS: Emergency Provider Emergency Medicine; PCP Family Medicine
DX: K42.0 Umbilical hernia with obstruction, without gangrene (principal); K74.60 Unspecified cirrhosis of liver; N28.9 Disorder of kidney and ureter, unspecified; Z87.891 Personal history of nicotine dependence
CPT/HCPCS: 36415; 74018; 74176; 80053; 82140; 83605; 83690; 85025; 85610; 85730; 96374; 96375; 96376; 99285; J2270; J2405; J2704

== ENCOUNTER 2024-02-25 14:19 | Outpatient (CLI) | payer OTHER, SELFPAY ==
[2024-02-25 15:11] LABS: Basophils % 0.4 %; Eosinophils # 0.2 10^3/uL (0.0-0.8); Eosinophils % 2.3 %; Hematocrit 22.3 % (37-53); Lymphocytes # 0.5 10^3/uL (0.8-4.8); Lymphocytes % 6.5 %; Mean Corpuscular HGB Conc 36.3 g/dL (30-55); Mean Corpuscular Hemoglobin 35.7 pg (27-33); Mean Corpuscular Volume 98.2 fl (82-101); Mean Platelet Volume 11.5 fL (7.4-10.4); Monocytes # 1.5 10^3/uL (0.2-0.9); Monocytes % 18.6 %; Neutrophils # 5.75 10^3/uL (1.8-7.7); Neutrophils % 71.8 %; Nucleated Red Blood Cells % 0 %; Platelet Count 108 10^3/cmm (157-399); Red Blood Count 2.27 10^6/uL (3.85-5.65); Red Cell Distribution Width 19.9 % (12.1-15.1)
[2024-02-25 15:22] LABS: INR 1.35 (0.8-1.2)
[2024-02-25 15:27] LABS: Alanine Aminotransferase 85 U/L (0-41); Alkaline Phosphatase 178 U/L (40-130); Aspartate Amino Transferase 127 U/L (0-40); Blood Urea Nitrogen 42 mg/dL (6-20); Calcium 9.9 mg/dL (8.5-10.5); Carbon Dioxide 20 mmol/L (22-29); Chloride 98 mmol/L (98-107); Glucose 90 mg/dL (65-115); Osmolality Calculated 284 mOsm/kg (285-295); Sodium 132 mmol/L (136-145); Total Bilirubin 2.5 mg/dL (0.15-1.2)
== END 2024-02-25 14:20 | disposition home or self-care (01) ==
LOC: LAB 14:23
PROVIDERS: PCP Family Medicine
DX: K70.9 Alcoholic liver disease, unspecified (principal)
CPT/HCPCS: 36415; 80053; 85025; 85610

== ENCOUNTER 2024-02-29 04:34 | Inpatient (IN) | payer OTHER, SELFPAY ==
[2024-02-29] VITALS (35 sets, daily range): BP systolic 80–128; BP diastolic 47–80; PULSE 80–106; RESP 14–20; TEMP 36.4–36.9; O2SAT 93–100; BMI 21.2
--- NOTE | 2024-02-29 04:48 | ED_ITS ---
Documented by User: Mary Garcias MD 02/29/24 04:49 HPI - Abdominal Pain 2 General: Chief Complaint: Abdominal Pain Stated Complaint: abd pain wraps to back post surg Time Seen by Provider: 02/29/24 04:45 History of Present Illness: 48-year-old man with history of alcoholi c cirrhosis who is on the transplant list and whom I saw about 3 weeks ago with an incarcerated umbilical hernia that ended up being transferred to tertiary care center and operated on. He said he been doing well after the surgery. He is had his sutures out. His surgical site is clean dry and intact and scarred at this point. He has developed increased ascites and left-sided abdominal pain. No fevers. No altered mental status. No focal motor deficits. Related Data Home Medications Medication Instructions Recorded Confirmed allopurinol 300 mg tablet 300 mg PO DAILY 06/29/23 02/29/24 pantoprazole 40 mg tablet,delayed 40 mg PO DAILY 06/29/23 02/29/24 release polyethylene glycol 3350 17 gram 17 g PO DAILY PRN Constipation 12/29/23 02/29/24 oral powder packet (Miralax) mometasone 110 mcg/actuation(30 2 inh inhalation DAILY 01/31/24 02/29/24 doses) breath activated powder inhaler (Asmanex Twisthaler) metoclopramide HCl 5 mg tablet 5 mg PO BID PRN Nausea And Vomiting 02/06/24 02/29/24 midodrine 5 mg tablet 15 mg PO TID 02/06/24 02/29/24 rifaximin 550 mg tablet 550 mg PO BID 02/06/24 02/29/24 lactulose 10 gram/15 mL oral 15 ml PO BID 02/29/24 02/29/24 solution (Constulose) Previous Rx's Medication Instructions Recorded ondansetron HCl 4 mg tablet 4 mg PO Q8H PRN Nausea And 01/02/24 Vomiting 30 days #30 tabs albuterol sulfate 90 mcg/actuation 2 inh inhalation Q6H PRN shortness 01/08/24 aerosol inhaler (Ventolin HFA) of breath or wheezing #6.7 grams tramadol 50 mg tablet 50 mg PO Q8H PRN pain #10 tabs 02/02/24 Allergies Allergy/AdvReac Type Severity Reaction Status Date / Time No Known Allergies Allergy Verified 02/07/24 18:15 Review of Systems 2 Narrative: Constitutional symptoms: Negative except as documented in HPI. Skin symptoms: Negative except as documented in HPI. Eye symptoms: Negative except as documented in HPI. ENMT symptoms: Negative except as documented in HPI. Respiratory symptoms: Negative except as documented in HPI. Cardiovascular symptoms: Negative except as documented in HPI. Gastrointestinal symptoms: Negative except as documented in HPI. Genitourinary symptoms: Negative except as documented in HPI. Musculoskeletal symptoms: Negative except as documented in HPI. Neurologic symptoms: Negative except as documented in HPI. Psychiatric symptoms: Negative except as documented in HPI. Endocrine symptoms: Negative except as documented in HPI. PFSH ED 2 PFSH: Medical History SBP (spontaneous bacterial peritonitis) Acute hepatic failure Abdominal ascites Smoker Colitis Low oxygen saturation Enteropathy Smoking addiction Alcohol use disorder Thrombocytopenia Liver cirrhosis Hematuria Ascites due to alcoholic cirrhosis Abdominal pain 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 History of colon polyps Rectal polyp 10 and 15 cm, cecum biopsy Sigmoid colon polyp Seasonal allergies Splenomegaly Enterocolitis 2016 Surgical History Status post colonoscopy with polypectomy H/O esophagogastroduodenoscopy Vasectomy status H/O left inguinal hernia repair Family History Denies family history of Cancer Social History Smoking and tobacco/nicotine status: former use of tobacco/nicotine Alcohol intake: current Substance/Drug Use: never Lives independently: Yes Housing: House Marital status: 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 Skin: Warm, dry. Head: Normocephalic, atraumatic. Neck: Supple, trachea midline. Eye: Extraocular movements are intact. Ears, nose, mouth and throat: mucosa moist. Cardiovascular: Regular, Normal peripheral perfusion. Respiratory: Lungs are clear to auscultation, respirations are non-labored, breath sounds are equal, Symmetrical chest wall expansion. Gastrointestinal: Soft, slightly distended, surgical site is clean dry and intact. Sutures have been removed. Some mild generalized left-sided abdominal tenderness Musculoskeletal: Normal ROM, no deformity. Neurological: Alert and oriented, No focal neurological deficit observed. Psychiatric: Cooperative, appropriate mood & affect. Course 2 Vital Signs: Vital signs: Vital Signs Temperature 97.7 F 02/29/24 04:44 Pulse Rate 90 02/29/24 11:00 Respiratory Rate 17 02/29/24 07:30 Blood Pressure 101/57 02/29/24 11:00 Pulse Oximetry 100 02/29/24 11:00 Oxygen Delivery Me thod Room Air 02/29/24 09:35 MDM - Abdominal Pain Medical Decision Making Patient care transitioned to Dr. Wright at shift change. Lab Data 02/29/24 04:54 02/29/24 04:54 Labs/Radiology: Radiology Impressions Chest X-Ray 02/29/24 05:43 IMPRESSION: No acute cardiopulmonary findings. Abdomen/Pelvis CT 02/29/24 06:11 IMPRESSION: Cirrhotic liver with diffuse ascites. Laboratory Results WBC 9.51 10^3/uL (3.29-11.43) 02/29/24 04:54 RBC 2.26 10^6/uL (3.85-5.65) L 02/29/24 04:54 Hgb 8.30 g/dL (11.27-16.99) L 02/29/24 04:54 Hct 22.2 % (37-53) L 02/29/24 04:54 MCV 98.2 fl (82-101) 02/29/24 04:54 MCH 36.7 pg (27-33) H 02/29/24 04:54 MCHC 37.4 g/dL (30-55) 02/29/24 04:54 RDW 20.3 % (12.1-15.1) H 02/29/24 04:54 Plt Count 149 10^3/cmm (157-399) L 02/29/24 04:54 MPV 11.2 fL (7.4-10.4) H 02/29/24 04:54 Neut % (Auto) 77.4 % 02/29/24 04:54 Lymph % (Auto) 5.9 % 02/29/24 04:54 Calhoun % (Auto) 14.5 % 02/29/24 04:54 Eos % (Auto) 1.4 % 02/29/24 04:54 Baso % (Auto) 0.3 % 02/29/24 04:54 Neut # (Auto) 7.36 10^3/uL (1.8-7.7) 02/29/24 04:54 Lymph # (Auto) 0.6 10^3/uL (0.8-4.8) L 02/29/24 04:54 [place]oun # (Auto) 1.4 10^3/uL (0.2-0.9) H 02/29/24 04:54 Eos # (Auto) 0.1 10^3/uL (0.0-0.8) 02/29/24 04:54 Baso # (Auto) 0.0 10^3/uL (0.0-0.1) 02/29/24 04:54 Nucleated RBC % (auto) 0 % 02/29/24 04:54 Nucleated RBCs # 0.0 /100WBC 02/29/24 04:54 Differential Comment Yes 02/29/24 10:15 PT 16.30 SECONDS (12.1-14.9) H 02/29/24 04:54 INR 1.22 (0.8-1.2) H 02/29/24 04:54 APTT 30.4 SECONDS (23.9-36.7) 02/29/24 04:54 Specimen Type Arterial 02/29/24 05:55 Sample Site Radial, left 02/29/24 05:55 ABG pH 7.40 (7.35-7.45) 02/29/24 05:55 ABG pCO2 31.6 mmHg (35-45) L 02/29/24 05:55 ABG pO2 81.2 mmHg (80.0-100.0) 02/29/24 05:55 ABG PO2/FiO2 Ratio 386 02/29/24 05:55 ABG HCO3 19.6 mmol/L (22-26) L 02/29/24 05:55 ABG O2 Saturation 97.1 02/29/24 05:55 ABG Base Excess -4.6 mmol/L (-2.0-2.0) L 02/29/24 05:55 Schuyler Test Pos 02/29/24 05:55 A-a O2 Gradient 3.7 mmHg (5-10) L 02/29/24 05:55 Hematocrit 23.3 % (42-52) L 02/29/24 05:55 Hgb O2 Saturation 94.5 % (95-100) L 02/29/24 05:55 Carboxyhemoglobin 1.1 %THgb (0.4-20.1) 02/29/24 05:55 Methemoglobin 1.5 % (0.4-1.5) 02/29/24 05:55 Total Hemoglobin 7.6 g/dL (14-18) L 02/29/24 05:55 Sodium 131.0 mmol/L (131-143) 02/29/24 05:55 Potassium 3.9 mmol/L (3.5-5.0) 02/29/24 05:55 Glucose 103.0 mg/dL (70-115) 02/29/24 05:55 Ionized Calcium 1.2 mmol/L (1.1-1.4) 02/29/24 05:55 O2 Delivery Device Room air 02/29/24 05:55 FiO2 21.0 % 02/29/24 05:55 Smooth And [employer] ID Ed 02/29/24 05:55 Sodium 133 mmol/L (136-145) L 02/29/24 04:54 Potassium 4.0 mmol/L (3.5-5.1) 02/29/24 04:54 Chloride 97 mmol/L (98-107) L 02/29/24 04:54 Carbon Dioxide 18 mmol/L (22-29) L 02/29/24 04:54 Anion Gap 22.0 (5-19) H 02/29/24 04:54 BUN 39 mg/dL (6-20) H 02/29/24 04:54 Creatinine 2.3 mg/dL (0.7-1.2) H 02/29/24 04:54 GFR Calculation 30.4 mL/min (90-130) L 02/29/24 04:54 Glucose 110 mg/dL (65-115) 02/29/24 04:54 Calculated Osmolality 286 mOsm/kg (285-295) 02/29/24 04:54 Lactic Acid 1.5 mmol/L (0.5-2.2) 02/29/24 10:58 Lactic Acid (Sepsis) 1.7 mmol/L (0.5-2.2) 02/29/24 07:20 Calcium 9.9 mg/dL (8.5-10.5) 02/29/24 04:54 Total Bilirubin 3.4 mg/dL (0.15-1.2) H 02/29/24 04:54 AST 89 U/L (0-40) H 02/29/24 04:54 ALT 74 U/L (0-41) H 02/29/24 04:54 Alkaline Phosphatase 201 U/L (40-130) H 02/29/24 04:54 Ammonia 34 umol/L (16-60) 02/29/24 04:54 Total Protein 6.9 g/dL (6.6-8.7) 02/29/24 04:54 Albumin 4.9 g/dL (3.5-5.2) 02/29/24 04:54 Globulin 2.0 g/dL (1.3-4.6) 02/29/24 04:54 Lipase 112 U/L (13-60) H 02/29/24 04:54 Urine Color Yellow (Yellow) 02/29/24 05:15 Urine Appearance Clear (CLEAR) 02/29/24 05:15 Urine pH 5.0 (5-7) 02/29/24 05:15 Ur Specific [place] 1.016 (1.005-1.030) 02/29/24 05:15 Urine Protein Negative (Negative) 02/29/24 05:15 Urine Glucose (UA) Negative (Normal) 02/29/24 05:15 Urine Ketones Negative (Negative) 02/29/24 05:15 Urine Blood Negative (Negative) 02/29/24 05:15 Urine Nitrate Negative (Negative) 02/29/24 05:15 Urine Bilirubin Negative (Negative) 02/29/24 05:15 Urine Urobilinogen 0.2 mg/dL (Negative) 02/29/24 05:15 Ur Leukocyte Esterase Negative (Negative) 02/29/24 05:15 Urine RBC 0-2 /hpf (0-2) 02/29/24 05:15 Urine WBC 0-5 /hpf (0-5) 02/29/24 05:15 Ur Squamous Epith Cells 0-5 /hpf (0-5) 02/29/24 05:15 Amorphous Sediment Not Reportable 02/29/24 05:15 Urine Bacteria None seen /hpf (NONE) 02/29/24 05:15 Hyaline Casts 6.17 /lpf 02/29/24 05:15 Fluid Color Yellow 02/29/24 10:15 Fluid Appearance Cloudy 02/29/24 10:15 Fluid WBC 75 /uL 02/29/24 10:15 Fluid RBC 1.000 10^3/uL 02/29/24 10:15 Fld Polynuclear WBCs # 0.004 02/29/24 10:15 Fld Polynuclear WBCs % 5.300 % 02/29/24 10:15 Fl Mononucl WBCs #(Auto) 0.071 02/29/24 10:15 Fl Mononuclear % Auto 94.700 % 02/29/24 10:15 Fld Crystal Laterality Right lower 02/29/24 10:15 Discharge Plan Discharge Patient Disposition: Admitted As Inpatient Clinical Impression: Peritonitis, Thrombocytopenia, Alcoholic cirrhosis of liver, Anemia, High anion gap metabolic acidosis, History of umbilical hernia repair Condition: Stable Prescriptions: No Action polyethylene glycol 3350 [Miralax] 17 gram Powder In Packet 17 g PO DAILY PRN (Reason: Constipation) ondansetron HCl 4 mg tablet 4 mg PO Q8H PRN (Reason: Nausea And Vomiting) 30 Days Qty: 30 0RF albuterol sulfate [Ventolin HFA] 90 mcg/actuation HFA aerosol inhaler 2 inh inhalation Q6H PRN (Reason: shortness of breath or wheezing) Qty: 6.7 0RF lactulose [Constulose] 10 gram/15 mL solution 15 ml PO BID pantoprazole 40 mg tablet,delayed release (DR/EC) 40 mg PO DAILY allopurinol 300 mg Tablet 300 mg PO DAILY midodrine 5 mg tablet 15 mg PO TID metoclopramide HCl 5 mg tablet 5 mg PO BID PRN (Reason: Nausea And Vomiting) rifaximin 550 mg Tablet 550 mg PO BID Asmanex Twisthaler 110 mcg/ actuation (30) Aerosol Powdr Breath Activated 2 inh INHALATION DAILY Rx Instructions: administer 1 hour before bedtime tramadol 50 mg tablet 50 mg PO Q8H PRN (Reason: pain) Qty: 10 0RF Referrals: Alia Sanchez MD [Primary Care Provider] - Sign Out Sign Out Data: Patient Sign Out occurred on 02/29/24 at 05:30. Patient's care was discussed, and care was transferred from Mary Garcias MD to Garth Wright DO. Coding Level of Care Code ED Director Of Student Affairs for Chg Fwd Documented by User: Garth Wright DO 02/29/24 12:21 HPI - Abdominal Pain 2 General: Chief Complaint: Abdominal Pain Stated Complaint: abd pain wraps to back post surg Time Seen by Provider: 02/29/24 04:45 Related Data Home Medications Medication Instructions Recorded Confirmed allopurinol 300 mg tablet 300 mg PO DAILY 06/29/23 02/29/24 pantoprazole 40 mg tablet,delayed 40 mg PO DAILY 06/29/23 02/29/24 release polyethylene glycol 3350 17 gram 17 g PO DAILY PRN Constipation 12/29/23 02/29/24 oral powder packet (Miralax) mometasone 110 mcg/actuation(30 2 inh inhalation DAILY 01/31/24 02/29/24 doses) breath activated powder inhaler (Asmanex Twisthaler) metoclopramide HCl 5 mg tablet 5 mg PO BID PRN Nausea And Vomiting 02/06/24 02/29/24 midodrine 5 mg tablet 15 mg PO TID 02/06/24 02/29/24 rifaximin 550 mg tablet 550 mg PO BID 02/06/24 02/29/24 lactulose 10 gram/15 mL oral 15 ml PO BID 02/29/24 02/29/24 solution (Constulose) Previous Rx's Medication Instructions Recorded ondansetron HCl 4 mg tablet 4 mg PO Q8H PRN Nausea And 01/02/24 Vomiting 30 days #30 tabs albuterol sulfate 90 mcg/actuation 2 inh inhalation Q6H PRN shortness 01/08/24 aerosol inhaler (Ventolin HFA) of breath or wheezing #6.7 grams tramadol 50 mg tablet 50 mg PO Q8H PRN pain #10 tabs 02/02/24 Allergies Allergy/AdvReac Type Severity Reaction Status Date / Time No Known Allergies Allergy Verified 02/07/24 18:15 PFSH ED 2 PFSH: Medical History SBP (spontaneous bacterial peritonitis) Acute hepatic failure Abdominal ascites Smoker Colitis Low oxygen saturation Enteropathy Smoking addiction Alcohol use disorder Thrombocytopenia Liver cirrhosis Hematuria Ascites due to alcoholic cirrhosis Abdominal pain 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 History of colon polyps Rectal polyp 10 and 15 cm, cecum biopsy Sigmoid colon polyp Seasonal allergies Splenomegaly Enterocolitis 2016 Surgical History Status post colonoscopy with polypectomy H/O esophagogastroduodenoscopy Vasectomy status H/O left inguinal hernia repair Family History Denies family history of Cancer Social History Smoking and tobacco/nicotine status: former use of tobacco/nicotine Alcohol intake: current Substance/Drug Use: never Lives independently: Yes Housing: House Marital status: Current occupation: [employer] Course 2 Vital Signs: Vital signs: Vital Signs Temperature 97.7 F 02/29/24 04:44 Pulse Rate 90 02/29/24 11:00 Respiratory Rate 17 02/29/24 07:30 Blood Pressure 101/57 02/29/24 11:00 Pulse Oximetry 100 02/29/24 11:00 Oxygen Delivery Me thod Room Air 02/29/24 09:35 MDM - Abdominal Pain Medical Records Care assumed at change of shift few weeks back patient was in the emergency room here was transferred out for repair of her umbilical hernia. He had a drain for some time afterwards for his ascites it was then removed he is not having left- sided abdominal pain. He reports a low-grade fever at home. Concern about a possible SBP. Will CT his abdomen and also get ultrasound for paracentesis so culture result can be obtained. Patient does have hepatorenal syndrome his creatinine is 2.3 which appears to be approximately his baseline he has no leukocytosis at this point. He denied any respiratory symptoms. Patient this time very cloudy fluid sent for an analysis for cell count as well as culture. Concerned about possible SBP from his recent procedure will start on Rocephin discussed with hospitalist and admit Lab Data 02/29/24 04:54 02/29/24 04:54 Labs/Radiology: Radiology Impressions Chest X-Ray 02/29/24 05:43 IMPRESSION: No acute cardiopulmonary findings. Abdomen/Pelvis CT 02/29/24 06:11 IMPRESSION: Cirrhotic liver with diffuse ascites. Laboratory Results WBC 9.51 10^3/uL (3.29-11.43) 02/29/24 04:54 RBC 2.26 10^6/uL (3.85-5.65) L 02/29/24 04:54 Hgb 8.30 g/dL (11.27-16.99) L 02/29/24 04:54 Hct 22.2 % (37-53) L 02/29/24 04:54 MCV 98.2 fl (82-101) 02/29/24 04:54 MCH 36.7 pg (27-33) H 02/29/24 04:54 MCHC 37.4 g/dL (30-55) 02/29/24 04:54 RDW 20.3 % (12.1-15.1) H 02/29/24 04:54 Plt Count 149 10^3/cmm (157-399) L 02/29/24 04:54 MPV 11.2 fL (7.4-10.4) H 02/29/24 04:54 Neut % (Auto) 77.4 % 02/29/24 04:54 Lymph % (Auto) 5.9 % 02/29/24 04:54 Calhoun % (Auto) 14.5 % 02/29/24 04:54 Eos % (Auto) 1.4 % 02/29/24 04:54 Baso % (Auto) 0.3 % 02/29/24 04:54 Neut # (Auto) 7.36 10^3/uL (1.8-7.7) 02/29/24 04:54 Lymph # (Auto) 0.6 10^3/uL (0.8-4.8) L 02/29/24 04:54 [place]houn # (Auto) 1.4 10^3/uL (0.2-0.9) H 02/29/24 04:54 Eos # (Auto) 0.1 10^3/uL (0.0-0.8) 02/29/24 04:54 Baso # (Auto) 0.0 10^3/uL (0.0-0.1) 02/29/24 04:54 Nucleated RBC % (auto) 0 % 02/29/24 04:54 Nucleated RBCs # 0.0 /100WBC 02/29/24 04:54 Differential Comment Yes 02/29/24 10:15 PT 16.30 SECONDS (12.1-14.9) H 02/29/24 04:54 INR 1.22 (0.8-1.2) H 02/29/24 04:54 APTT 30.4 SECONDS (23.9-36.7) 02/29/24 04:54 Specimen Type Arterial 02/29/24 05:55 Sample Site Radial, left 02/29/24 05:55 ABG pH 7.40 (7.35-7.45) 02/29/24 05:55 ABG pCO2 31.6 mmHg (35-45) L 02/29/24 05:55 ABG pO2 81.2 mmHg (80.0-100.0) 02/29/24 05:55 ABG PO2/FiO2 Ratio 386 02/29/24 05:55 ABG HCO3 19.6 mmol/L (22-26) L 02/29/24 05:55 ABG O2 Saturation 97.1 02/29/24 05:55 ABG Base Excess -4.6 mmol/L (-2.0-2.0) L 02/29/24 05:55 Schuyler Test Pos 02/29/24 05:55 A-a O2 Gradient 3.7 mmHg (5-10) L 02/29/24 05:55 Hematocrit 23.3 % (42-52) L 02/29/24 05:55 Hgb O2 Saturation 94.5 % (95-100) L 02/29/24 05:55 Carboxyhemoglobin 1.1 %THgb (0.4-20.1) 02/29/24 05:55 Methemoglobin 1.5 % (0.4-1.5) 02/29/24 05:55 Total Hemoglobin 7.6 g/dL (14-18) L 02/29/24 05:55 Sodium 131.0 mmol/L (131-143) 02/29/24 05:55 Potassium 3.9 mmol/L (3.5-5.0) 02/29/24 05:55 Glucose 103.0 mg/dL (70-115) 02/29/24 05:55 Ionized Calcium 1.2 mmol/L (1.1-1.4) 02/29/24 05:55 O2 Delivery Device Room air 02/29/24 05:55 FiO2 21.0 % 02/29/24 05:55 Smooth And [employer] ID Ed 02/29/24 05:55 Sodium 133 mmol/L (136-145) L 02/29/24 04:54 Potassium 4.0 mmol/L (3.5-5.1) 02/29/24 04:54 Chloride 97 mmol/L (98-107) L 02/29/24 04:54 Carbon Dioxide 18 mmol/L (22-29) L 02/29/24 04:54 Anion Gap 22.0 (5-19) H 02/29/24 04:54 BUN 39 mg/dL (6-20) H 02/29/24 04:54 Creatinine 2.3 mg/dL (0.7-1.2) H 02/29/24 04:54 GFR Calculation 30.4 mL/min (90-130) L 02/29/24 04:54 Glucose 110 mg/dL (65-115) 02/29/24 04:54 Calculated Osmolality 286 mOsm/kg (285-295) 02/29/24 04:54 Lactic Acid 1.5 mmol/L (0.5-2.2) 02/29/24 10:58 Lactic Acid (Sepsis) 1.7 mmol/L (0.5-2.2) 02/29/24 07:20 Calcium 9.9 mg/dL (8.5-10.5) 02/29/24 04:54 Total Bilirubin 3.4 mg/dL (0.15-1.2) H 02/29/24 04:54 AST 89 U/L (0-40) H 02/29/24 04:54 ALT 74 U/L (0-41) H 02/29/24 04:54 Alkaline Phosphatase 201 U/L (40-130) H 02/29/24 04:54 Ammonia 34 umol/L (16-60) 02/29/24 04:54 Total Protein 6.9 g/dL (6.6-8.7) 02/29/24 04:54 Albumin 4.9 g/dL (3.5-5.2) 02/29/24 04:54 Globulin 2.0 g/dL (1.3-4.6) 02/29/24 04:54 Lipase 112 U/L (13-60) H 02/29/24 04:54 Urine Color Yellow (Yellow) 02/29/24 05:15 Urine Appearance Clear (CLEAR) 02/29/24 05:15 Urine pH 5.0 (5-7) 02/29/24 05:15 Ur Specific [place] 1.016 (1.005-1.030) 02/29/24 05:15 Urine Protein Negative (Negative) 02/29/24 05:15 Urine Glucose (UA) Negative (Normal) 02/29/24 05:15 Urine Ketones Negative (Negative) 02/29/24 05:15 Urine Blood Negative (Negative) 02/29/24 05:15 Urine Nitrate Negative (Negative) 02/29/24 05:15 Urine Bilirubin Negative (Negative) 02/29/24 05:15 Urine Urobilinogen 0.2 mg/dL (Negative) 02/29/24 05:15 Ur Leukocyte Esterase Negative (Negative) 02/29/24 05:15 Urine RBC 0-2 /hpf (0-2) 02/29/24 05:15 Urine WBC 0-5 /hpf (0-5) 02/29/24 05:15 Ur Squamous Epith Cells 0-5 /hpf (0-5) 02/29/24 05:15 Amorphous Sediment Not Reportable 02/29/24 05:15 Urine Bacteria None seen /hpf (NONE) 02/29/24 05:15 Hyaline Casts 6.17 /lpf 02/29/24 05:15 Fluid Color Yellow 02/29/24 10:15 Fluid Appearance Cloudy 02/29/24 10:15 Fluid WBC 75 /uL 02/29/24 10:15 Fluid RBC 1.000 10^3/uL 02/29/24 10:15 Fld Polynuclear WBCs # 0.004 02/29/24 10:15 Fld Polynuclear WBCs % 5.300 % 02/29/24 10:15 Fl Mononucl WBCs #(Auto) 0.071 02/29/24 10:15 Fl Mononuclear % Auto 94.700 % 02/29/24 10:15 Fld Crystal Laterality Right lower 02/29/24 10:15 All radiology interpretation(s) finalized by discharge Discharge Plan Discharge Patient Disposition: Admitted As Inpatient Clinical Impression: Peritonitis, Thrombocytopenia, Alcoholic cirrhosis of liver, Anemia, High anion gap metabolic acidosis, History of umbilical hernia repair Condition: Stable Prescriptions: No Action polyethylene glycol 3350 [Miralax] 17 gram Powder In Packet 17 g PO DAILY PRN (Reason: Constipation) ondansetron HCl 4 mg tablet 4 mg PO Q8H PRN (Reason: Nausea And Vomiting) 30 Days Qty: 30 0RF albuterol sulfate [Ventolin HFA] 90 mcg/actuation HFA aerosol inhaler 2 inh inhalation Q6H PRN (Reason: shortness of breath or wheezing) Qty: 6.7 0RF lactulose [Constulose] 10 gram/15 mL solution 15 ml PO BID pantoprazole 40 mg tablet,delayed release (DR/EC) 40 mg PO DAILY allopurinol 300 mg Tablet 300 mg PO DAILY midodrine 5 mg tablet 15 mg PO TID metoclopramide HCl 5 mg tablet 5 mg PO BID PRN (Reason: Nausea And Vomiting) rifaximin 550 mg Tablet 550 mg PO BID Asmanex Twisthaler 110 mcg/ actuation (30) Aerosol Powdr Breath Activated 2 inh INHALATION DAILY Rx Instructions: administer 1 hour before bedtime tramadol 50 mg tablet 50 mg PO Q8H PRN (Reason: pain) Qty: 10 0RF Referrals: Alia Sanchez MD [Primary Care Provider] - Sign Out Sign Out Data: Patient Sign Out occurred on 02/29/24 at 05:30. Patient's care was discussed, and care was transferred from Mary Garcias MD to Garth Wright DO. Coding Level of Care Code ED Director Of Student Affairs for Jess López
[2024-02-29 05:00] LABS: Basophils % 0.3 %; Eosinophils # 0.1 10^3/uL (0.0-0.8); Eosinophils % 1.4 %; Hematocrit 22.2 % (37-53); Lymphocytes # 0.6 10^3/uL (0.8-4.8); Lymphocytes % 5.9 %; Mean Corpuscular HGB Conc 37.4 g/dL (30-55); Mean Corpuscular Hemoglobin 36.7 pg (27-33); Mean Corpuscular Volume 98.2 fl (82-101); Mean Platelet Volume 11.2 fL (7.4-10.4); Monocytes # 1.4 10^3/uL (0.2-0.9); Monocytes % 14.5 %; Neutrophils # 7.36 10^3/uL (1.8-7.7); Neutrophils % 77.4 %; Nucleated Red Blood Cells % 0 %; Platelet Count 149 10^3/cmm (157-399); Red Blood Count 2.26 10^6/uL (3.85-5.65); Red Cell Distribution Width 20.3 % (12.1-15.1); White Blood Count 9.51 10^3/uL (3.29-11.43)
[2024-02-29 05:15] LABS: INR 1.22 (0.8-1.2)
[2024-02-29 05:16] LABS: Partial Thromboplastin Time 30.4 SECONDS (23.9-36.7)
[2024-02-29 05:21] LABS: Bilirubin Urine Negative (Negative); Blood Urine Negative (Negative); Glucose Urine UA Negative (Normal); Ketones Urine Negative (Negative); Leukocyte Esterase Urine Negative (Negative); Nitrate Urine Negative (Negative); Protein Urine Negative (Negative); Specific Gravity, Urine 1.016 (1.005-1.030); Urine Appearance Clear (CLEAR); Urine Color Yellow (Yellow); Urobilinogen Urine 0.2 mg/dL (Negative)
[2024-02-29 05:22] LABS: Alanine Aminotransferase 74 U/L (0-41); Albumin Level 4.9 g/dL (3.5-5.2); Alkaline Phosphatase 201 U/L (40-130); Aspartate Amino Transferase 89 U/L (0-40); Blood Urea Nitrogen 39 mg/dL (6-20); Calcium 9.9 mg/dL (8.5-10.5); Carbon Dioxide 18 mmol/L (22-29); Chloride 97 mmol/L (98-107); Creatinine Clr Calc Pharmacy 36.5106; Glomerular Filtration Rate 30.4 mL/min (90-130); Glucose 110 mg/dL (65-115); Osmolality Calculated 286 mOsm/kg (285-295); Sodium 133 mmol/L (136-145); Total Bilirubin 3.4 mg/dL (0.15-1.2); Total Protein 6.9 g/dL (6.6-8.7)
[2024-02-29 05:23] LABS: Lactic Sepsis W/Reflex 2.9 mmol/L (0.5-2.2)
[2024-02-29 05:26] LABS: Ammonia 34 umol/L (16-60)
[2024-02-29 05:26] LABS: Bacteria Urine None Seen /hpf; Hyaline Casts Urine 6.17 /lpf; RBC Urine 0-2 /hpf (0-2); Squamous Epithelial Cell Urine 0-5 /hpf (0-5); WBC Urine 0-5 /hpf (0-5)
[2024-02-29 05:39] LABS: UA Slide Review UA Slide Review Perf
--- NOTE | 2024-02-29 05:43 | XRR_ITS ---
PROCEDURE INFORMATION: Exam: XR Chest Exam date and time: 02/29/2024 5:56 AM Age: 48 years old Clinical indication: Pain; Left-sided; Additional info: Abdominal pain TECHNIQUE: Imaging protocol: Radiologic exam of the chest. Views: 1 view. COMPARISON: CR (CHEST, ) 01/08/2024 9:10 PM FINDINGS: Lungs: Hypoinflation with bronchovascular crowding. No focal consolidation. Pleural spaces: Unremarkable. No pleural effusion. No pneumothorax. Heart/Mediastinum: Unremarkable. No cardiomegaly. Bones/joints: Degenerative change of the spine and shoulders. XR/XR chest 1V portable [id number] IMPRESSION: No acute cardiopulmonary findings.
--- NOTE | 2024-02-29 05:54 | ECG_ITS ---
[facility]: [facility]24[facility]29 Pat Name: Chase Rivero Department: Room: Gender: Male Tapper Shank: : 1975 Requested By: Garth Howell Order Number: [id number] Demarcus MD: Ace Hinton M.D. Measurements Intervals [place] Rate: 93 P: 27 [place]: 152 QRS: -23 QRSD: 89 T: 33 QT: 290 QTc: 362 Interpretive Statements SINUS RHYTHM BORDERLINE LEFT AXIS DEVIATION [QRS AXIS < -20] NONSPECIFIC T-WAVE ABNORMALITY Compared to ECG 12/29/2023 18:25:42 T-wave abnormality now present ST (T wave) deviation no longer present Electronically Signed On 02-29-2024 16:57:52 CT MANAGER by Ace Hinton M.D. [email or web address]
[2024-02-29 06:05] LABS: ABG PCO2 31.6 mmHg (35-45); Alveolar-Arterial Oxygen Gradi 3.7 mmHg (5-10); Arterial Blood Gas Hematocrit 23.3 % (42-52); Base Excess ABG -4.6 mmol/L (-2.0-2.0); Blood Gas Allen Test Pos; Blood Gas Sample Type Arterial; Carboxyhemoglobin 1.1 %THgb (0.4-20.1); HCO3 ABG 19.6 mmol/L (22-26); HGB O2 Sat 94.5 % (95-100); Ionized Calcium Level - ABG 1.2 mmol/L (1.1-1.4); Methemoglobin 1.5 % (0.4-1.5); Oxygen Saturation ABG 97.1; PO2 ABG 81.2 mmHg (80.0-100.0); Potassium Level - ABG 3.9 mmol/L (3.5-5.0); Total Hemoglobin 7.6 g/dL (14-18)
[2024-02-29 06:06] LABS: Blood Gas Operator Identificat ED; Blood Gas Sample Site Radial, left; Oxygen Device ROOM AIR; PO2 FiO2 Ratio Arterial Blood 386
--- NOTE | 2024-02-29 06:11 | CTR_ITS ---
PROCEDURE INFORMATION: Exam: CT Abdomen And Pelvis Without Contrast Exam date and time: 02/29/2024 6:20 AM Age: 48 years old Clinical indication: Abdominal pain TECHNIQUE: Imaging protocol: Computed tomography of the abdomen and pelvis without contrast. Radiation optimization: All CT scans at this facility use at least one of these dose optimization techniques: automated exposure control; mA and/or kV adjustment per patient size (includes targeted exams where dose is matched to clinical indication); or iterative reconstruction. COMPARISON: CT abdomen pelvis con [id number] 02/08/2024 2:31 AM RADIATION DOSE METRICS: Total DLP (mGy-cm): 511.12 FINDINGS: Lungs: Bibasilar dependent atelectasis. Liver: Stable cirrhotic liver with diffuse ascites. Gallbladder and biliary ducts: Layering calcifications within the gallbladder. Pancreas: Normal. No ductal dilation. Spleen: Splenomegaly with splenic granuloma. Adrenal glands: Normal. No mass. Kidneys and ureters: Chronic atrophied left kidney. Stomach and bowel: Stable appearance of right colonic bowel wall thickening secondary to portal hypertension. Appendix: No evidence of appendicitis. Intraperitoneal space: Diffuse ascites. Vasculature: Scattered atherosclerotic disease. Lymph nodes: Unremarkable. No enlarged lymph nodes. Urinary bladder: Unremarkable as visualized. Reproductive: Unremarkable as visualized. Bones/joints: Unremarkable. No acute fracture. Soft tissues: Fluid-filled right inguinal hernia. Small periumbilical hernia with small amount of ascites. CT/CT abdomen pelvis con [id number] IMPRESSION: Cirrhotic liver with diffuse ascites.
--- NOTE | 2024-02-29 06:11 | US_ITS ---
WS: [id number] ULTRASOUND-GUIDED THERAPEUTIC AND DIAGNOSTIC PARACENTESIS Procedure, risks, and complications have been explained to the patient. Consent is obtained. Utilizing aseptic technique and 1% buffered lidocaine, a small dermatome was made through which a 5 F rench Yueh catheter was inserted. Approximately 4000 ml of yellow peritoneal fluid was obtained witho ut difficulty. No complications encountered. US/US paracentesis abd w [id number] IMPRESSION: Uncomplicated paracentesis yielding 4000 ml of peritoneal fluid.
[2024-02-29 06:12] LABS: Lipase 112 U/L (13-60)
[2024-02-29 06:44] LABS: Reflex Lactate Order REFLEX LACTIC ORDERD
--- NOTE | 2024-02-29 07:29 | PC.PHAR ---
patient is [facility], sent fax. patient said he takes care of most meds and was able to go over them with me
[2024-02-29] MEDS: morphine 4 mg/mL SDV 1 mL IVP (07:30)
[2024-02-29] MEDS: ondansetron 2 mg/ML SDV 2 mL 4 MG IVP (07:31)
[2024-02-29 07:46] LABS: Lactic Acid level (Lactate) 1.7 mmol/L (0.5-2.2)
--- NOTE | 2024-02-29 10:37 | PC.NURSE ---
PARACENTESIS PAUSED DUE TO PT BLOOD PRESSURE BEING 99/57 PER PHYSICIAN ORDERS.
[2024-02-29 10:40] LABS: Color, Body Fluid YELLOW
[2024-02-29 10:41] LABS: PATH Referral YES
[2024-02-29 10:47] LABS: Body Fluid Polynuclear #Cells 0.004; Body Fluid WBC 75 /uL; Monocytes # Body Fluid 0.071
[2024-02-29 10:52] LABS: Apprearance, Body Fluid CLOUDY
[2024-02-29 10:54] LABS: Fluid Laterality Right Lower
--- NOTE | 2024-02-29 11:10 | PC.NURSE ---
PARACENTESIS CATHETER PULLED DUE TO VERBAL ORDERS FROM DR. MALONE. PRESSURE DRESSING APPLIED.
[2024-02-29] MEDS: cefTRIAXone 1,000 mg SDV 2000 MG IVP (11:16)
[2024-02-29 11:28] LABS: Lactic Sepsis W/Reflex 1.5 mmol/L (0.5-2.2)
[2024-02-29] MEDS: albumin 25 G/100 ML BAG 60 G IV ×2 (11:47→20:29)
--- NOTE | 2024-02-29 12:36 | P.HP_ITS ---
Providers/Chief Complaint 2 Admitting Physician: Steven Milligan MD, hospitalist Primary Care Provider: Alia Sanchez MD Chief Complaint: abd pain wraps to back post surg History of Present Illness Chase Rivero is a 48 year old male with known end-stage liver disease, currently being evaluated by transplant for liver and kidney, with history of recurrent ascites and paracentesis and recent hernia repair who presents with increasing abdominal pain. Last hospitalization was at [facility] on February 07. From there he transition to [facility] and was discharged around the first after evaluation for transplant in the future. Hernia repair was around the . He did have a drain a while. No antibiotics since discharge from [facility]. He reports some increase in ascites, and increase in abdominal pain in the last day. No fever. reports no severe confusion. No vomiting. Perhaps not eating and drinking as well as he was previously. Cipro he was on prophylactically for SBP which he has had in the past was discontinued after his [facility] hospital stay. Following paracentesis he still has some abdominal pain. ER physician was concerned regarding possible peritonitis/SBP, elevated lactic acid, lower blood pressures. He reports he has not drank for some time, and now does not smoke. Review of Systems 2 General: Reports: 10 or more systems reviewed and unremarkable except in HPI and below Card: Denies: chest pain Resp: Denies: dyspnea Medications/Allergies Home Medications Medication Instructions Recorded Confirmed Last Taken Type allopurinol 300 mg tablet 300 mg PO DAILY 06/29/23 02/29/24 02/28/24 History pantoprazole 40 mg tablet,delayed 40 mg PO DAILY 06/29/23 02/29/24 02/06/24 History release polyethylene glycol 3350 17 gram 17 g PO DAILY PRN Constipation 12/29/23 02/29/24 Unknown History oral powder packet (Miralax) ondansetron HCl 4 mg tablet 4 mg PO Q8H PRN Nausea And 01/02/24 02/29/24 02/07/24 Rx Vomiting 30 days #30 tabs albuterol sulfate 90 mcg/actuation 2 inh inhalation Q6H PRN shortness 01/08/24 02/29/24 02/06/24 Rx aerosol inhaler (Ventolin HFA) of breath or wheezing #6.7 grams mometasone 110 mcg/actuation(30 2 inh inhalation DAILY 01/31/24 02/29/24 02/28/24 History doses) breath activated powder inhaler ([employer]haler) tramadol 50 mg tablet 50 mg PO Q8H PRN pain #10 tabs 02/02/24 02/29/24 02/05/24 Rx metoclopramide HCl 5 mg tablet 5 mg PO BID PRN Nausea And Vomiting 02/06/24 02/29/24 Unknown History midodrine 5 mg tablet 15 mg PO TID 02/06/24 02/29/24 02/07/24 History rifaximin 550 mg tablet 550 mg PO BID 02/06/24 02/29/24 02/07/24 History lactulose 10 gram/15 mL oral 15 ml PO BID 02/29/24 02/29/24 Unknown History solution (Constulose) Allergies Allergy/AdvReac Type Severity Reaction Status Date / Time No Known Allergies Allergy Verified 02/07/24 18:15 PFSH Acute 2 PFSH: Medical History (Updated 02/29/24 @ 12:44 by Steven Milligan MD) SBP (spontaneous bacterial peritonitis) Acute hepatic failure Abdominal ascites Smoker Colitis Low oxygen saturation Enteropathy Smoking addiction Alcohol use disorder Thrombocytopenia Liver cirrhosis Hematuria Ascites due to alcoholic cirrhosis Abdominal pain 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 History of colon polyps Rectal polyp 10 and 15 cm, cecum biopsy Sigmoid colon polyp Seasonal allergies Splenomegaly Enterocolitis 2016 Surgical History Status post colonoscopy with polypectomy H/O esophagogastroduodenoscopy Vasectomy status H/O left inguinal hernia repair Family History Denies family history of Cancer Social History Smoking and tobacco/nicotine status: former use of tobacco/nicotine Alcohol intake: current Substance/Drug Use: never Lives independently: Yes Housing: House 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 is present with him, and able to give an excellent history. HEENT: Atraumatic. Oropharynx is clear, mucous membranes dry Neck is supple Cardiovascular regular rate and rhythm. No murmur. Blood pressure 90/50 Lungs clear Abdomen slight tenderness. Positive bowel sounds. Dressing over paracentesis site where 4 L were just obtained by radiology. Incision site from recent hernia surgery noted. No evidence of significant erythema. Wound well-healed. Skin no rash Neuro no focal deficits Extremities no cyanosis clubbing or edema Data 02/29/24 04:54 02/29/24 04:54 Other Labs: INR 1.22 ABG demonstrates pH 7.4, pCO2 32, pO2 81, on room air LFTs demonstrate an AST of 89, ALT 74, total bilirubin of 3.4, alk phos 201 Ammonia level 34 Calcium, albumin are normal Lactic acid 2.9 then 1.5. Lipase 112 Urinalysis essentially negative White blood cell count of fluid is 75 with 4 PMNs Micro: Microbiology 02/29/24 11:00 Blood Culture - Preliminary Blood SPECIMEN COLLECTED 02/29/24 10:58 Blood Culture - Preliminary Blood SPECIMEN COLLECTED A&P Assessment and plan (1) Abdominal pain: Patient presents with significant abdominal pain There is a concern for SBP, although cell count does not seem to suggest this. Culture was obtained. Blood culture obtained as well Rocephin initiated, continue 2 g IV every 24 hours until cultures negative Pain has improved with removing 4 L. Concomitant recent hernia surgery may also contribute. No evidence of infection at surgical site Overall await cultures (2) Hypotension: Patient with significant hypotension, but is worsened following taking off peritoneal fluid Initiate midodrine. He has not yet had his morning dose 250 cc bolus now IV fluids of NS at 50 cc an hour Albumin secondary to his renal injury (3) Lactic acidosis: Patient with lactic acidosis. Doubt sepsis. Likely secondary to overall low fluid status Hydration Repeat lactic acid level normal (4) Chronic kidney disease: Patient with some chronic kidney disease, following his acute kidney injury that occurred recently. There was concern of hepatorenal syndrome. There is concern that his presentation today may be acute kidney injury, but baseline discharge labs from [facility] are not known at this time. Will request records. Albumin with his paracentesis Close follow-up of renal function tomorrow (5) Liver cirrhosis: Patient with significant history of end-stage liver disease He is being considered for liver and kidney transplant at [facility] Concomitant cirrhosis, thrombocytopenia, slight elevation in INR, elevation in LFTs and bilirubin are all consistent with this. Continue rifaximin, lactulose From my understanding he does have history of esophageal varices. His MELD score is 21-25 depending upon which calculator used and potentially when he may have gone on the transplant list. Qualifiers: Ascites presence: with ascites Hepatic cirrhosis type: unspecified hepatic cirrhosis Qualified Code(s): K74.60 - Unspecified cirrhosis of liver; R18.8 - Other ascites Plan Multiple other medical problems as outlined in past medical history Full code currently SCDs for DVT prophylaxis, pharmacologic anticoagulation contraindicated secondary to anemia, history of varices, etc. Attestations 2 Medical Necessity Statement*: Will need greater than 2 midnight stay for evaluation and treatment of possible peritonitis, concern of acute kidney injury superimposed on chronic kidney disease Diagnoses Abdominal pain R10.9 Hypotension I95.9 Lactic acidosis E87.20 Chronic kidney disease N18.9 Liver cirrhosis K74.60; R18.8 Ascites presence: with ascites Hepatic cirrhosis type: unspecified hepatic cirrhosis Time Spent (min) 55
--- NOTE | 2024-02-29 12:39 | PC.NURSE ---
DR. LOYD NOTIFIED OF PT BLOOD PRESSURES CONTINUING TO BE LOW. VERBAL ORDERS FROM MD TO GIVE A 250ML BOLUS OF NORMAL SALINE AND GIVE PT SCHEDULED MIDODRINE NOW.
[2024-02-29] MEDS: midodrine 5 mg TABLET 15 MG PO ×2 (12:42→20:29)
[2024-02-29] MEDS: sodium chloride 0.9% 250 ML 999 ML IV (12:50)
[2024-02-29] MEDS: lactulose oral liq 20 gm/30 mL UDC 10 GM PO (17:33)
[2024-02-29] MEDS: rifaximin 200 mg Tablet 600 MG PO (17:34)
[2024-02-29] MEDS: sodium chloride 0.9% 1,000 ML 50 ML IV (17:34)
[2024-02-29] MEDS: morphine 4 mg/mL SDV 1 mL 2 MG IVP (20:41)
[2024-03-01] VITALS (11 sets, daily range): BP systolic 92–121; BP diastolic 50–69; PULSE 75–120; RESP 15–18; TEMP 36.5–36.8; O2SAT 94–99
[2024-03-01] MEDS: albumin 25 G/100 ML BAG 60 G IV ×3 (03:45→21:10)
[2024-03-01 04:55] LABS: Basophils % 0.3 %; Eosinophils # 0.2 10^3/uL (0.0-0.8); Eosinophils % 2.5 %; Hematocrit 22.5 % (37-53); Lymphocytes # 0.7 10^3/uL (0.8-4.8); Lymphocytes % 9.5 %; Mean Corpuscular HGB Conc 35.6 g/dL (30-55); Mean Corpuscular Volume 101.4 fl (82-101); Mean Platelet Volume 11.3 fL (7.4-10.4); Monocytes # 0.7 10^3/uL (0.2-0.9); Monocytes % 8.9 %; Neutrophils % 78.3 %; Nucleated Red Blood Cells % 0 %; Platelet Count 140 10^3/cmm (157-399); Red Blood Count 2.22 10^6/uL (3.85-5.65); Red Cell Distribution Width 21.1 % (12.1-15.1); White Blood Count 7.28 10^3/uL (3.29-11.43)
[2024-03-01 05:09] LABS: Alanine Aminotransferase 52 U/L (0-41); Albumin Level 5.1 g/dL (3.5-5.2); Alkaline Phosphatase 143 U/L (40-130); Aspartate Amino Transferase 55 U/L (0-40); Blood Urea Nitrogen 34 mg/dL (6-20); Calcium 9.7 mg/dL (8.5-10.5); Carbon Dioxide 18 mmol/L (22-29); Chloride 100 mmol/L (98-107); Creatinine Clr Calc Pharmacy 43.6901; Globulin 1.8 g/dL (1.3-4.6); Glomerular Filtration Rate 37.9 mL/min (90-130); Glucose 127 mg/dL (65-115); Osmolality Calculated 285 mOsm/kg (285-295); Sodium 133 mmol/L (136-145); Total Bilirubin 3.3 mg/dL (0.15-1.2); Total Protein 6.9 g/dL (6.6-8.7)
[2024-03-01] MEDS: ipratropium-albuterol 3 mL Neb INHALATION (08:00)
[2024-03-01] MEDS: budesonide 0.5 mg/2 mL Neb INHALATION (08:00)
[2024-03-01] MEDS: lactulose oral liq 20 gm/30 mL UDC 10 GM PO (09:42)
[2024-03-01] MEDS: pantoprazole DR 40 mg Tablet PO (09:42)
[2024-03-01] MEDS: midodrine 5 mg TABLET 15 MG PO ×3 (09:42→21:10)
[2024-03-01] MEDS: cefTRIAXone 2,000 mg SDV 2000 MG IVP ×2 (09:42→09:47)
[2024-03-01] MEDS: rifaximin 200 mg Tablet 600 MG PO ×2 (09:42→17:23)
[2024-03-01] MEDS: morphine 4 mg/mL SDV 1 mL 2 MG IVP (12:49)
--- NOTE | 2024-03-01 15:44 | P.PN_ITS ---
Subjective 2 Subjective: Patient was seen this morning, denies any fevers, no chills, no cough, does report abdominal distention more today, Vitals/I&O/Wt Last Vital Signs Temp 98.0 F 03/01/24 12:02 Pulse 120 H 03/01/24 12:02 Resp 18 03/01/24 12:49 BP 110/62 03/01/24 12:02 Pulse Ox 96 03/01/24 12:49 O2 Del Method Room Air 03/01/24 12:02 03/01/24 03/01/24 03/01/24 06:59 14:59 22:59 Intake Total 580 / 1148 1484.167 / 1484.167 Balance 580 / 1148 1484.167 / 1484.167 Weight last 48 hrs Weight 61.598 kg Weight 63.503 kg Weight 63.503 kg Physical Exam 2 Const: COMMON NORMALS: no acute distress and patient oriented x3 Resp: COMMON NORMALS: normal respiratory effort, No retractions, No use of accessory muscles and clear to auscultation bilaterally AUSCULTATION: clear to auscultation bilaterally Cardio: COMMON NORMALS: regular rate, regular rhythm, S1 normal heart sound present and S2 normal heart sound present RATE: regular rate RHYTHM: r egular rhythm HEART SOUNDS: S1 normal heart sound present and S2 normal heart sound present GI: OTHER: Abdomen soft, distended, good bowel sounds Extremity: COMMON NORMALS: no pedal edema Neuro: COMMON NORMALS: patient oriented x3 Psych: COMMON NORMALS: mental status grossly normal Data 03/01/24 04:43 03/01/24 04:43 Micro: Microbiology 02/29/24 10:15 Gram Stain - Final Ascites Fluid Body Fluid Culture - Preliminary 02/29/24 11:00 Blood Culture - Preliminary Blood NEGATIVE TO DATE 02/29/24 10:58 Blood Culture - Preliminary Blood NEGATIVE TO DATE A&P Assessment and plan (1) Abdominal pain: Concerns for spontaneous bacterial peritonitis ? Status post 4 L paracentesis So for ascites Gram stain within normal limits, culture no growth Rocephin initiated, continue 2 g IV every 24 hours until cultures negative Monitor (2) Hypotension: Continue monitoring (3) Lactic acidosis: Monitor (4) Chronic kidney disease: ? Patient reports a history of hepatorenal syndrome ? He tells me that he is also be considered for renal transplant in addition to liver transplant ? Monitor kidney function (5) Liver cirrhosis: End-stage liver disease # On [place] transplant list for liver transplant, possible renal transplant Continue rifaximin, lactulose History of esophageal varices His MELD score is 21-25 depending upon which calculator used and potentially when he may have gone on the transplant list. Qualifiers: Ascites presence: with ascites Hepatic cirrhosis type: unspecified hepatic cirrhosis Qualified Code(s): K74.60 - Unspecified cirrhosis of liver; R18.8 - Other ascites Plan Multiple other medical problems as outlined in past medical history Full code currently SCDs for DVT prophylaxis, pharmacologic anticoagulation contraindicated secondary to anemia, history of varices, etc. Attestations 2 Medical Necessity Statement*: Patient requires hospitalization for abdominal pain, hypotension, concern for SBP Diagnoses Abdominal pain R10.9 Hypotension I95.9 Lactic acidosis E87.20 Chronic kidney disease N18.9 Liver cirrhosis K74.60; R18.8 Ascites presence: with ascites Hepatic cirrhosis type: unspecified hepatic cirrhosis
[2024-03-01] MEDS: ondansetron 2 mg/ML SDV 2 mL 4 MG IVP (21:10)
[2024-03-02] VITALS (20 sets, daily range): BP systolic 94–117; BP diastolic 57–72; PULSE 85–118; RESP 14–18; TEMP 36.7–37.1; O2SAT 93–98
[2024-03-02] MEDS: albumin 25 G/100 ML BAG 60 G IV ×3 (04:11→19:36)
[2024-03-02] MEDS: morphine 4 mg/mL SDV 1 mL 2 MG IVP ×3 (04:15→19:05)
[2024-03-02] MEDS: ipratropium-albuterol 3 mL Neb INHALATION ×2 (04:28→09:22)
[2024-03-02 05:36] LABS: Basophils % 0.6 %; Eosinophils # 0.2 10^3/uL (0.0-0.8); Eosinophils % 3.4 %; Lymphocytes # 0.5 10^3/uL (0.8-4.8); Lymphocytes % 7.6 %; Mean Corpuscular HGB Conc 36.6 g/dL (30-55); Mean Corpuscular Hemoglobin 36.6 pg (27-33); Mean Platelet Volume 11.5 fL (7.4-10.4); Monocytes # 0.9 10^3/uL (0.2-0.9); Monocytes % 13.8 %; Neutrophils % 74.2 %; Nucleated Red Blood Cells % 0 %; Platelet Count 109 10^3/cmm (157-399); Red Blood Count 2.02 10^6/uL (3.85-5.65); White Blood Count 6.74 10^3/uL (3.29-11.43)
[2024-03-02 05:48] LABS: Alanine Aminotransferase 37 U/L (0-41); Alkaline Phosphatase 125 U/L (40-130); Aspartate Amino Transferase 42 U/L (0-40); Blood Urea Nitrogen 31 mg/dL (6-20); Calcium 9.9 mg/dL (8.5-10.5); Carbon Dioxide 20 mmol/L (22-29); Chloride 99 mmol/L (98-107); Creatinine Clr Calc Pharmacy 41.9758; Globulin 1.4 g/dL (1.3-4.6); Glomerular Filtration Rate 35.7 mL/min (90-130); Glucose 111 mg/dL (65-115); Osmolality Calculated 283 mOsm/kg (285-295); Sodium 133 mmol/L (136-145); Total Bilirubin 2.4 mg/dL (0.15-1.2); Total Protein 6.4 g/dL (6.6-8.7)
[2024-03-02 05:52] LABS: Hematocrit 20.2 % (37-53)
[2024-03-02] MEDS: budesonide 0.5 mg/2 mL Neb INHALATION (09:23)
[2024-03-02] MEDS: midodrine 5 mg TABLET 15 MG PO ×3 (09:48→20:47)
[2024-03-02] MEDS: pantoprazole DR 40 mg Tablet PO (09:49)
[2024-03-02] MEDS: rifaximin 200 mg Tablet 600 MG PO (09:49)
[2024-03-02] MEDS: cefTRIAXone 2,000 mg SDV 2000 MG IVP (09:51)
--- NOTE | 2024-03-02 16:28 | P.PN_ITS ---
Subjective 2 Subjective: Patient was seen this morning, does report abdominal distention, abdominal bloating, no fevers, no chills discussed his low hemoglobin recheck hemoglobin this afternoon, due to persistent abdominal distention, he would prefer to have a paracentesis Vitals/I&O/Wt Last Vital Signs Temp 98.1 F 03/02/24 11:58 Pulse 103 H 03/02/24 14:00 Resp 18 03/02/24 13:02 BP 97/57 03/02/24 11:58 Pulse Ox 94 03/02/24 13:02 O2 Del Method Room Air 03/02/24 09:23 03/02/24 03/02/24 03/02/24 06:59 14:59 22:59 Intake Total 450 / 2034.167 580 / 580 Balance 450 / 2034.167 580 / 580 Weight last 48 hrs Weight 63.458 kg Weight 61.598 kg Physical Exam 2 Const: COMMON NORMALS: no acute distress and patient oriented x3 Resp: COMMON NORMALS: normal respiratory effort, No retractions, No use of accessory muscles and clear to auscultation bilaterally AUSCULTATION: clear to auscultation bilaterally Cardio: COMMON NORMALS: regular rate, regular rhythm, S1 normal heart sound present and S2 normal heart sound present RATE: regular rate RHYTHM: r egular rhythm HEART SOUNDS: S1 normal heart sound present and S2 normal heart sound present GI: OTHER: Abdomen is soft, distended, good bowel sounds, has fluid wave present, no guarding, no rebound, rigidity Extremity: COMMON NORMALS: no pedal edema Neuro: COMMON NORMALS: patient oriented x3 Psych: COMMON NORMALS: mental status grossly normal Data 03/02/24 04:31 03/02/24 04:31 Micro: Microbiology 02/29/24 10:15 Gram Stain - Final Ascites Fluid Body Fluid Culture - Preliminary 02/29/24 11:00 Blood Culture - Preliminary Blood NEGATIVE TO DATE 02/29/24 10:58 Blood Culture - Preliminary Blood NEGATIVE TO DATE A&P Assessment and plan (1) Abdominal pain: Concerns for spontaneous bacterial peritonitis ? Status post 4 L paracentesis So for ascites Gram stain within normal limits, culture no growth Rocephin initiated, continue 2 g IV every 24 hours until cultures negative Monitor (2) Hypotension: Continue monitoring (3) Lactic acidosis: Monitor (4) Chronic kidney disease: ? Patient reports a history of hepatorenal syndrome ? He tells me that he is also be considered for renal transplant in addition to liver transplant ? Monitor kidney function (5) Liver cirrhosis: End-stage liver disease # On [place] transplant list for liver transplant, possible renal transplant Continue rifaximin, lactulose History of esophageal varices His MELD score is 21-25 depending upon which calculator used and potentially when he may have gone on the transplant list. Qualifiers: Ascites presence: with ascites Hepatic cirrhosis type: unspecified hepatic cirrhosis Qualified Code(s): K74.60 - Unspecified cirrhosis of liver; R18.8 - Other ascites (6) Acute anemia: Hemoglobin down to 7.4, recheck this afternoon -Decide if patient needs a transfusion Plan Multiple other medical problems as outlined in past medical history Fluid overload, will order ultrasound paracentesis tomorrow Full code currently SCDs for DVT prophylaxis, pharmacologic anticoagulation contraindicated secondary to anemia, history of varices, etc. Attestations 2 Medical Necessity Statement*: Patient requires hospitalization for acute anemia, recurrent ascites, concerns for SBP Diagnoses Abdominal pain R10.9 Hypotension I95.9 Lactic acidosis E87.20 Chronic kidney disease N18.9 Liver cirrhosis K74.60; R18.8 Ascites presence: with ascites Hepatic cirrhosis type: unspecified hepatic cirrhosis Acute anemia D64.9
[2024-03-02] MEDS: ondansetron 2 mg/ML SDV 2 mL 4 MG IVP (17:45)
[2024-03-02] MEDS: lactulose oral liq 20 gm/30 mL UDC 10 GM PO (17:45)
[2024-03-02] MEDS: RIFAXIMIN 550 MG 1 EACH PO (18:20)
[2024-03-02] MEDS: prochlorperazine 10 mg/2 mL Inj 5 MG IVP (22:24)
[2024-03-03] VITALS (31 sets, daily range): BP systolic 94–114; BP diastolic 52–74; PULSE 81–120; RESP 14–20; TEMP 36.7–36.9; O2SAT 93–100
[2024-03-03] MEDS: sodium chloride 0.9% 100 mL Bag 50 ML IV (00:38)
[2024-03-03 04:24] LABS: Basophils % 0.6 %; Eosinophils # 0.3 10^3/uL (0.0-0.8); Eosinophils % 4.4 %; Lymphocytes # 0.6 10^3/uL (0.8-4.8); Lymphocytes % 7.7 %; Mean Corpuscular HGB Conc 36.1 g/dL (30-55); Mean Corpuscular Hemoglobin 36.1 pg (27-33); Mean Platelet Volume 10.8 fL (7.4-10.4); Monocytes # 1.1 10^3/uL (0.2-0.9); Neutrophils # 5.24 10^3/uL (1.8-7.7); Nucleated Red Blood Cells % 0 %; Platelet Count 97 10^3/cmm (157-399); Red Blood Count 2.05 10^6/uL (3.85-5.65); Red Cell Distribution Width 21.2 % (12.1-15.1); White Blood Count 7.27 10^3/uL (3.29-11.43)
[2024-03-03] MEDS: albumin 25 G/100 ML BAG 60 G IV ×3 (04:25→19:55)
[2024-03-03] MEDS: morphine 4 mg/mL SDV 1 mL 2 MG IVP ×4 (04:26→20:59)
[2024-03-03 04:33] LABS: Hematocrit 20.5 % (37-53)
[2024-03-03 04:42] LABS: Alanine Aminotransferase 28 U/L (0-41); Albumin Level 4.8 g/dL (3.5-5.2); Alkaline Phosphatase 119 U/L (40-130); Anion Gap 17.1 (5-19); Aspartate Amino Transferase 38 U/L (0-40); Blood Urea Nitrogen 29 mg/dL (6-20); Calcium 9.7 mg/dL (8.5-10.5); Carbon Dioxide 20 mmol/L (22-29); Chloride 101 mmol/L (98-107); Globulin 1.2 g/dL (1.3-4.6); Glomerular Filtration Rate 33.7 mL/min (90-130); Glucose 111 mg/dL (65-115); Osmolality Calculated 285 mOsm/kg (285-295); Potassium 4.1 mmol/L (3.5-5.1); Sodium 134 mmol/L (136-145); Total Bilirubin 2.6 mg/dL (0.15-1.2)
[2024-03-03] MEDS: RIFAXIMIN 550 MG 1 EACH PO ×2 (09:14→17:23)
[2024-03-03] MEDS: sucralfate 1 gm Tablet PO ×3 (09:15→19:55)
[2024-03-03] MEDS: midodrine 5 mg TABLET 15 MG PO ×3 (09:15→20:00)
[2024-03-03] MEDS: lactulose oral liq 20 gm/30 mL UDC 10 GM PO ×2 (09:15→17:24)
[2024-03-03] MEDS: pantoprazole 40 mg SDV IVP ×2 (09:15→19:55)
[2024-03-03] MEDS: cefTRIAXone 2,000 mg SDV 2000 MG IVP (09:15)
[2024-03-03] MEDS: budesonide 0.5 mg/2 mL Neb INHALATION ×2 (09:32→20:46)
[2024-03-03] MEDS: ipratropium-albuterol 3 mL Neb INHALATION ×2 (09:32→20:46)
--- NOTE | 2024-03-03 09:44 | PC.CHAP ---
Pastoral Care Encounter/Spiritual Assessment Type of Contact [] Declined drink mixer visit [] Patient/Family/Request visit [] Outpatient visit [] Follow-up visit [] Physician referral [] Code/Alert [x] Routine visit [] Staff referral [] Actively dying [] Patient sleeping [] Family support [] [] Out of room [] Palliative care [] [x] Receiving care in room [] Pre-surgical visit [] Trauma [] Long length of stay [] ICU visit [] Other: Relational/Emotional Strength [] Patient feels connected with others/family/visitors/staff [] Distress [] Loneliness/isolation [] Abandonment Spirituality of Patient [] Person of Adry [] Attends Yarsanism of their Adry [] Believes in Prayer [] Reads Bible or Roman Catholic materials [] There are Spiritual issues 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 [x] Prayer [] Active listening [] Non-anxious presence [] Spiritual/emotional support [] Crisis/trauma care [] Spiritual counseling [] Bereavement support [] Provided bereavement packet [] Provided Bible/devotional materials [] Provided toy/stuffed animal, coloring book to patient or family member [] Provided Communion [] Anointing/[place] [] Salvation [] Completed spiritual assessment [] Other: Impact on Illness or Injury [] Angry [] Fearful [] Anxious [] Often cries [] Exhaustion [] Unable to work [] Unable to attend jewish [] Unable to walk/stand [] Unable to read [] Unable to drive [] Unable to eat/drink [] Unable to sleep [] Unable to be with family [] Patient intubated [] Other: Summary Time spent with patient
[2024-03-03 11:56] LABS: Basophils % 0.6 %; Eosinophils # 0.2 10^3/uL (0.0-0.8); Eosinophils % 2.2 %; Lymphocytes # 0.4 10^3/uL (0.8-4.8); Lymphocytes % 5.3 %; Mean Corpuscular HGB Conc 36.6 g/dL (30-55); Mean Corpuscular Hemoglobin 35.9 pg (27-33); Mean Corpuscular Volume 98.1 fl (82-101); Mean Platelet Volume 10.4 fL (7.4-10.4); Monocytes # 1.1 10^3/uL (0.2-0.9); Monocytes % 15.7 %; Neutrophils # 5.39 10^3/uL (1.8-7.7); Neutrophils % 75.8 %; Nucleated Red Blood Cells % 0 %; Platelet Count 91 10^3/cmm (157-399); Red Blood Count 2.06 10^6/uL (3.85-5.65); Red Cell Distribution Width 21.5 % (12.1-15.1); White Blood Count 7.12 10^3/uL (3.29-11.43)
[2024-03-03 12:04] LABS: Hematocrit 20.2 % (37-53)
--- NOTE | 2024-03-03 12:31 | PC.NURSE ---
Dr. Montenegro here to perform paracentesis. Time out performed. VSS.
--- NOTE | 2024-03-03 13:18 | CTR_ITS ---
PROCEDURE INFORMATION: Exam: CT Abdomen And Pelvis Without Contrast Exam date and time: 03/03/2024 2:39 PM Age: 48 years old Clinical indication: Bloating; Additional info: Anemia TECHNIQUE: Imaging protocol: Computed tomography of the abdomen and pelvis without contrast. Axial, coronal and sagittal reformatted images were created and reviewed. Radiation optimization: All CT scans at this facility use at least one of these dose optimization techniques: automated exposure control; mA and/or kV adjustment per patient size (includes targeted exams where dose is matched to clinical indication); or iterative reconstruction. COMPARISON: CT abdomen pelvis wo con [id number] 02/29/2024 6:20 AM RADIATION DOSE METRICS: Total DLP (mGy-cm): 401.18 FINDINGS: Lungs: Linear stranding and groundglass at the lung bases, likely due to atelectasis and/or scarring. Liver: Cirrhotic. 4 mm low-density lesion in the right hepatic lobe, too small to characterize. Gallbladder and biliary ducts: Cholelithiasis. Pancreas: Mild pancreatic atrophy. Spleen: Coarse calcified splenic granuloma. Adrenal glands: Normal. No mass. Kidneys and ureters: Left renal cortical scarring. No radiodense calculi. No hydronephrosis. Stomach and bowel: No bowel wall thickening. No obstruction. No pneumatosis. Appendix: Appendix not identified with certainty. Intraperitoneal space: Small ascites. No definite organized collection. No free air. Vasculature: Mild atherosclerotic disease. No aneurysm. Recanalized paraumbilical vein. Lymph nodes: No pathologically enlarged lymph nodes. Urinary bladder: Mild circumferential urinary bladder wall thickening, likely secondary to underdistention. Reproductive: Unremarkable. Bones/joints: No acute osseous abnormality. Osteopenia. Degenerative changes. Soft tissues: Small, fluid containing umbilical and right inguinal hernias. CT/CT abdomen pelvis wo con [id number] IMPRESSION: 1. Cirrhosis and small ascites. 2. Additional findings, as above.
--- NOTE | 2024-03-03 13:33 | PC.NURSE ---
Paracentesis complete. 5500ml fluid off. VSS. Pt tolerated well. Fluid a light yellow with no blood noted.
[2024-03-03 13:58] LABS: Body Fluid Polynuclear #Cells 0.004; Body Fluid WBC 75 /uL; Monocytes # Body Fluid 0.071; RBC, Body Fluid 0 10^3/uL
[2024-03-03] MEDS: prochlorperazine 10 mg/2 mL Inj 5 MG IVP (14:01)
[2024-03-03 14:17] LABS: Albumin Body Fluid 1.2 g/dL; Cholesterol Body Fluid 10 mg/dL (0-200); Fluid Alkaline Phos. 25 IU/L; LDH Body Fluid 36 U/L; Total Protein Body Fluid 1.4 g/dL; Triglycerides Body Fluid 59 mg/dL (0-150); Uric Acid Body Fluid 5 mg/dL
[2024-03-03 14:41] LABS: Body Fluid Specific Gravity 1.014; PATH Referral YES; pH Body Fluid 7.5
--- NOTE | 2024-03-03 14:42 | P.PN_ITS ---
Subjective 2 Subjective: - Patient was seen this morning, is at bedside -Does report feeling weak and fatigued, has not had a bowel movement as of yet -Discussed patient's acute anemia, hemog lobin requiring 1 unit PRBC overnight, now down to 7.4 -Patient's and patient are concerne d about persistent anemia, he has not as of yet had bloody or black stools, he is constipated, his abdomen is distended -He would like to have a paracentesis, -No nausea, no vomiting, no hematemesis -Of esophageal varices he does have a hi story of esophageal varices Vitals/I&O/Wt Last Vital Signs Temp 98.2 F 03/03/24 12:04 Pulse 104 H 03/03/24 13:27 Resp 18 03/03/24 14:00 BP 98/58 03/03/24 13:27 Pulse Ox 99 03/03/24 13:27 O2 Del Method Room Air 03/03/24 13:18 O2 Flow Rate 0 03/03/24 12:30 03/02/24 03/03/24 03/03/24 22:59 06:59 14:59 Intake Total 100 / 680 100 / 780 120 / 120 Output Total 5500 / 5500 Balance 100 / 680 100 / 780 -5380 / -5380 Weight last 48 hrs Weight 64.501 kg Weight 63.458 kg Physical Exam 2 Const: COMMON NORMALS: no acute distress and patient oriented x3 Resp: COMMON NORMALS: normal respiratory effort, No retractions, No use of accessory muscles and clear to auscultation bilaterally AUSCULTATION: clear to auscultation bilaterally Cardio: COMMON NORMALS: regular rate, regular rhythm, S1 normal heart sound present and S2 normal heart sound present RATE: regular rate RHYTHM: r egular rhythm HEART SOUNDS: S1 normal heart sound present and S2 normal heart sound present GI: COMMON NORMALS: Soft to palpation INSPECTION: Yes normal to inspection and Yes abdominal distension AUSCULTATION: Yes normoactive bowel sounds P ALPATION: Yes Soft to palpation, No Tenderness to palpation present (GI), No Guarding due to palpation present (GI) and No Rigid due to palpation Extremity: COMMON NORMALS: no clubbing, cyanosis or edema and no pedal edema Neuro: COMMON NORMALS: patient oriented x3 Psych: COMMON NORMALS: mental status grossly normal Data 03/03/24 11:49 03/03/24 04:17 Micro: Microbiology 02/29/24 10:15 Gram Stain - Final Ascites Fluid Body Fluid Culture - Final A&P Assessment and plan (1) Abdominal pain: Concerns for spontaneous bacterial peritonitis ? Status post 4 L paracentesis So for ascites Gram stain within normal limits, culture no growth Rocephin initiated, continue 2 g IV every 24 hours until cultures negative Monitor -will need another paracentesis today (2) Hypotension: Continue monitoring (3) Lactic acidosis: Monitor (4) Chronic kidney disease: ? Patient reports a history of hepatorenal syndrome ? He tells me that he is also be considered for renal transplant in addition to liver transplant ? Monitor kidney function (5) Liver cirrhosis: End-stage liver disease # On [place] transplant list for liver transplant, possible renal transplant Continue rifaximin, lactulose History of esophageal varices His MELD score is 21-25 depending upon which calculator used and potentially when he may have gone on the transplant list. Qualifiers: Ascites presence: with ascites Hepatic cirrhosis type: unspecified hepatic cirrhosis Qualified Code(s): K74.60 - Unspecified cirrhosis of liver; R18.8 - Other ascites (6) Acute anemia: s/p 1 units prbc Hemoglobin down to 7.4, will given another unit prbc -Decide if patient needs a transfusion Plan Multiple other medical problems as outlined in past medical history Fluid overload, will order ultrasound paracentesis today Full code currently SCDs for DVT prophylaxis, pharmacologic anticoagulation contraindicated secondary to anemia, history of varices, etc. Attestations 2 Medical Necessity Statement*: patient requires hospitalization for anemia, requiring inpatient monitoring Diagnoses Abdominal pain R10.9 Hypotension I95.9 Lactic acidosis E87.20 Chronic kidney disease N18.9 Liver cirrhosis K74.60; R18.8 Ascites presence: with ascites Hepatic cirrhosis type: unspecified hepatic cirrhosis Acute anemia D64.9
[2024-03-03 14:43] LABS: Apprearance, Body Fluid CLOUDY; Color, Body Fluid YELLOW
[2024-03-03 15:01] LABS: Cyto Order Verification Order Verified
[2024-03-03] MEDS: polyethylene glycol 3350 Pkt 17 gm PO (15:18)
[2024-03-03] MEDS: sennosides-docusate Tablet 1 TAB PO ×2 (15:19→17:24)
--- NOTE | 2024-03-03 16:28 | US_ITS ---
WS: [id number] ULTRASOUND-GUIDED THERAPEUTIC PARACENTESIS Procedure, risks, and complications have been explained to the patient. Consent is obtained. Utilizing aseptic technique and 1% buffered lidocaine, a small dermatome was made through which a 5 F rench Yueh catheter was inserted. Approximately 5300 ml of clear peritoneal fluid was obtained witho ut difficulty. No complications encountered. US/US paracentesis abd w [id number] IMPRESSION: Uncomplicated paracentesis yielding 5300 ml of peritoneal fluid.
[2024-03-03 20:28] LABS: Hematocrit 23.8 % (37-53)
[2024-03-03 20:42] LABS: INR 1.57 (0.8-1.2)
[2024-03-04] VITALS (7 sets, daily range): BP systolic 100–104; BP diastolic 51–62; PULSE 87–111; RESP 15–18; TEMP 36.8–36.9; O2SAT 96–98
[2024-03-04] MEDS: sucralfate 1 gm Tablet PO ×2 (02:12→08:59)
[2024-03-04] MEDS: morphine 4 mg/mL SDV 1 mL 2 MG IVP (05:37)
[2024-03-04 05:43] LABS: Basophils % 0.5 %; Eosinophils # 0.2 10^3/uL (0.0-0.8); Eosinophils % 3.3 %; Hematocrit 22.7 % (37-53); Lymphocytes # 0.5 10^3/uL (0.8-4.8); Lymphocytes % 6.1 %; Mean Corpuscular Hemoglobin 34.9 pg (27-33); Mean Corpuscular Volume 94.2 fl (82-101); Mean Platelet Volume 10.9 fL (7.4-10.4); Monocytes # 1.1 10^3/uL (0.2-0.9); Monocytes % 14.5 %; Neutrophils # 5.54 10^3/uL (1.8-7.7); Neutrophils % 75.2 %; Nucleated Red Blood Cells % 0 %; Platelet Count 93 10^3/cmm (157-399); Red Blood Count 2.41 10^6/uL (3.85-5.65); Red Cell Distribution Width 20.8 % (12.1-15.1); White Blood Count 7.37 10^3/uL (3.29-11.43)
[2024-03-04 06:25] LABS: Alanine Aminotransferase 25 U/L (0-41); Albumin Level 4.8 g/dL (3.5-5.2); Alkaline Phosphatase 111 U/L (40-130); Anion Gap 16.1 (5-19); Aspartate Amino Transferase 34 U/L (0-40); Blood Urea Nitrogen 26 mg/dL (6-20); Calcium 9.7 mg/dL (8.5-10.5); Carbon Dioxide 21 mmol/L (22-29); Chloride 100 mmol/L (98-107); Creatinine Clr Calc Pharmacy 39.4964; Globulin 1.2 g/dL (1.3-4.6); Glomerular Filtration Rate 33.7 mL/min (90-130); Glucose 102 mg/dL (65-115); Osmolality Calculated 281 mOsm/kg (285-295); Potassium 4.1 mmol/L (3.5-5.1); Sodium 133 mmol/L (136-145); Total Bilirubin 3.3 mg/dL (0.15-1.2)
[2024-03-04] MEDS: lactulose oral liq 20 gm/30 mL UDC 10 GM PO (08:58)
[2024-03-04] MEDS: sennosides-docusate Tablet 1 TAB PO (08:59)
[2024-03-04] MEDS: midodrine 5 mg TABLET 15 MG PO (08:59)
[2024-03-04] MEDS: polyethylene glycol 3350 Pkt 17 gm PO (09:00)
[2024-03-04] MEDS: pantoprazole 40 mg SDV IVP (09:00)
[2024-03-04] MEDS: RIFAXIMIN 550 MG 1 EACH PO (09:03)
[2024-03-04] MEDS: budesonide 0.5 mg/2 mL Neb INHALATION (09:36)
[2024-03-04] MEDS: ipratropium-albuterol 3 mL Neb INHALATION (09:37)
--- NOTE | 2024-03-04 09:49 | PC.CHAP ---
Pastoral Care Encounter/Spiritual Assessment Type of Contact [] Declined wallpaper cleaner visit [] Patient/Family/Request visit [] Outpatient visit [] Follow-up visit [] Physician referral [] Code/Alert [] Routine visit [] Staff referral [] Actively dying [] Patient sleeping [] Family support [] [] Out of room [] Palliative care [] [x] Receiving care in room [] Pre-surgical visit [] Trauma [] Long length of stay [] ICU visit [] Other: Relational/Emotional Strength [] Patient feels connected with others/family/visitors/staff [] Distress [] Loneliness/isolation [] Abandonment Spirituality of Patient [] Person of Adry [] Attends Spiritism of their Adry [] Believes in Prayer [] Reads Bible or Adventism materials [] There are Spiritual issues to be addressed Digital Media Manager 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 [] Prayer [] Active listening [] Non-anxious presence [] Spiritual/emotional support [] Crisis/trauma care [] Spiritual counseling [] Bereavement support [] Provided bereavement packet [] Provided Bible/devotional materials [] Provided toy/stuffed animal, coloring book to patient or family member [] Provided Communion [] Anointing/[place] [] Salvation [] Completed spiritual assessment [] Other: Impact on Illness or Injury [] Angry [] Fearful [] Anxious [] Often cries [] Exhaustion [] Unable to work [] Unable to attend presybeterian [] Unable to walk/stand [] Unable to read [] Unable to drive [] Unable to eat/drink [] Unable to sleep [] Unable to be with family [] Patient intubated [] Other: Summary Time spent with patient
--- NOTE | 2024-03-04 11:00 | P.DS_ITS ---
Discharge Providers Date of Admission: 02/29/24 13:28 Date of Discharge: March 04, 2024 Attending Provider at Admission: Steven Milligan MD Attending Provider at Discharge: Fortino Wagoner MD Primary Care Provider: Alia Sanchez MD Diagnoses at Discharge Discharge Diagnosis (1) Abdominal pain: Status: Acute (2) Hypotension: Status: Acute (3) Lactic acidosis: Status: Acute (4) Chronic kidney disease: Status: Chronic (5) Liver cirrhosis: Status: Acute Qualifiers: Ascites presence: with ascites Hepatic cirrhosis type: unspecified hepatic cirrhosis Qualified Code(s): K74.60 - Unspecified cirrhosis of liver; R18.8 - Other ascites (6) Acute anemia: Status: Acute Reason for Visit Reason for Visit: abd pain wraps to back post surg Hospital Course Hospital Course This is a 48-year-old male, 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 end-stage liver disease currently on liver transplant list, possibly will be put on the kidney transplant list, history of recurrent ascites, recurrent paracentesis, had a hernia repair, was on Cipro for concerns for prophylaxis for SBP which was stopp ed after his [facility] stay, who presents to [facility] for abdominal distention Patient was admitted to [facility] for abdominal pain concerns for SBP, ascites cultures so far normal within normal limits, culture so far no growth fairly unlikely to be spontaneous bacterial peritonitis. He had 2 paracentesis during his hospitalization 4 and 5 L during his hospitalization. During his hospitalization he developed acute anemia requiring 2 units PRBC, no blood or black stools, no hematemesis, hemoptysis, paracentesis was yellow and cloudy, hemoglobin has been stabilized at 9.6 at discharge. Patient is to follow-up with [facility] as outpatient for consideration EGD. Follow-up primary care provider for repeat hemoglobin in 48 hours. Patient was advised if he were to have any blood or black stools to go to the emergency room. Physical Exam Const: COMMON NORMALS: no acute distress and patient oriented x3 Resp: COMMON NORMALS: normal respiratory effort, No retractions, No use of accessory muscles and clear to auscultation bilaterally AUSCULTATION: clear to auscultation bilaterally Cardio: COMMON NORMALS: regular rate, regular rhythm, S1 normal heart sound present and S2 normal heart sound present RATE: regular rate RHYTHM: regular rhythm HEART SOUNDS: S1 normal heart sound present and S2 normal heart sound present GI: COMMON NORMALS: Normal to inspection, nondistended, normoactive bowel sounds present and non-tender Extremity: COMMON NORMALS: no pedal edema Neuro: COMMON NORMALS: patient oriented x3 Psych: COMMON NORMALS: mental status grossly normal Discharge Data Studies Completed and Pending Completed Studies During Hospitalization Category Date Time Status CT abdomen pelvis wo con [id number] Routine Cat Scan 03/03/24 13:[address] abdomen pelvis wo con [id number] Stat Cat Scan 02/29/24 06:11 Completed XR chest 1V portable [id number] Stat Exams 02/29/24 05:43 [place]d w [id number] Routine Ultrasound 03/03/24 16:28 Completed US paracentesis abd w [id number] Stat Ultrasound 02/29/24 06:11 Completed Pending at discharge Category Date Time Status Amylase, Peritoneal Fluid Routine Lab 03/03/24 13:38 Received Anaerobic Culture Routine Lab 03/03/24 13:38 Results Blood Culture Stat Lab 02/29/24 11:00 Results Body Fluid Culture & GS Routine Lab 03/03/24 13:38 Results CBC Auto Diff [Complete Blood Count w/Auto] Routine Lab 03/04/24 12:00 Ordered Mycobacteria, Culture w/Fluor Routine Lab 03/03/24 13:38 Received Occult Blood Stool [Immunochemical Fecal OCB] Routine Lab 03/03/24 08:34 Uncollected Occult Blood Stool [Immunochemical Fecal OCB] Routine Lab 03/03/24 13:18 Uncollected Cytology [PTH] Routine Pth 03/03/24 13:38 Received Radiology Impressions Chest X-Ray 02/29/24 05:43 IMPRESSION: No acute cardiopulmonary findings. Abdomen/Pelvis CT 03/03/24 13:18 IMPRESSION: 1. Cirrhosis and small ascites. 2. Additional findings, as above. Paracentesis Ultrasound 03/03/24 16:28 IMPRESSION: Uncomplicated paracentesis yielding 5300 ml of peritoneal fluid. Laboratory Results WBC 7.37 10^3/uL (3.29-11.43) 03/04/24 05:05 RBC 2.41 10^6/uL (3.85-5.65) L 03/04/24 05:05 Hgb 8.40 g/dL (11.27-16.99) L 03/04/24 05:05 Hct 22.7 % (37-53) L 03/04/24 05:05 MCV 94.2 fl (82-101) 03/04/24 05:05 MCH 34.9 pg (27-33) H 03/04/24 05:05 MCHC 37.0 g/dL (30-55) 03/04/24 05:05 RDW 20.8 % (12.1-15.1) H 03/04/24 05:05 Plt Count 93 10^3/cmm (157-399) L 03/04/24 05:05 MPV 10.9 fL (7.4-10.4) H 03/04/24 05:05 Neut % (Auto) 75.2 % 03/04/24 05:05 Lymph % (Auto) 6.1 % 03/04/24 05:05 [place] % (Auto) 14.5 % 03/04/24 05:05 Eos % (Auto) 3.3 % 03/04/24 05:05 Baso % (Auto) 0.5 % 03/04/24 05:05 Neut # (Auto) 5.54 10^3/uL (1.8-7.7) 03/04/24 05:05 Lymph # (Auto) 0.5 10^3/uL (0.8-4.8) L 03/04/24 05:05 [place] # (Auto) 1.1 10^3/uL (0.2-0.9) H 03/04/24 05:05 Eos # (Auto) 0.2 10^3/uL (0.0-0.8) 03/04/24 05:05 Baso # (Auto) 0.0 10^3/uL (0.0-0.1) 03/04/24 05:05 Nucleated RBC % (auto) 0 % 03/04/24 05:05 Nucleated RBCs # 0.0 /100WBC 03/04/24 05:05 Differential Comment Yes 03/03/24 13:38 PT 19.80 SECONDS (12.1-14.9) H 03/03/24 20:08 INR 1.57 (0.8-1.2) H 03/03/24 20:08 APTT 30.4 SECONDS (23.9-36.7) 02/29/24 04:54 Specimen Type Arterial 02/29/24 05:55 Sample Site Radial, left 02/29/24 05:55 ABG pH 7.40 (7.35-7.45) 02/29/24 05:55 ABG pCO2 31.6 mmHg (35-45) L 02/29/24 05:55 ABG pO2 81.2 mmHg (80.0-100.0) 02/29/24 05:55 ABG PO2/FiO2 Ratio 386 02/29/24 05:55 ABG HCO3 19.6 mmol/L (22-26) L 02/29/24 05:55 ABG O2 Saturation 97.1 02/29/24 05:55 ABG Base Excess -4.6 mmol/L (-2.0-2.0) L 02/29/24 05:55 Schuyler Test Pos 02/29/24 05:55 A-a O2 Gradient 3.7 mmHg (5-10) L 02/29/24 05:55 Hematocrit 23.3 % (42-52) L 02/29/24 05:55 Hgb O2 Saturation 94.5 % (95-100) L 02/29/24 05:55 Carboxyhemoglobin 1.1 %THgb (0.4-20.1) 02/29/24 05:55 Methemoglobin 1.5 % (0.4-1.5) 02/29/24 05:55 Total Hemoglobin 7.6 g/dL (14-18) L 02/29/24 05:55 Sodium 131.0 mmol/L (131-143) 02/29/24 05:55 Potassium 3.9 mmol/L (3.5-5.0) 02/29/24 05:55 Glucose 103.0 mg/dL (70-115) 02/29/24 05:55 Ionized Calcium 1.2 mmol/L (1.1-1.4) 02/29/24 05:55 O2 Delivery Device Room air 02/29/24 05:55 FiO2 21.0 % 02/29/24 05:55 Web Content Executive ID Ed 02/29/24 05:55 Sodium 133 mmol/L (136-145) L 03/04/24 05:05 Potassium 4.1 mmol/L (3.5-5.1) 03/04/24 05:05 Chloride 100 mmol/L (98-107) 03/04/24 05:05 Carbon Dioxide 21 mmol/L (22-29) L 03/04/24 05:05 Anion Gap 16.1 (5-19) 03/04/24 05:05 BUN 26 mg/dL (6-20) H 03/04/24 05:05 Creatinine 2.1 mg/dL (0.7-1.2) H 03/04/24 05:05 GFR Calculation 33.7 mL/min (90-130) L 03/04/24 05:05 Glucose 102 mg/dL (65-115) 03/04/24 05:05 Calculated Osmolality 281 mOsm/kg (285-295) L 03/04/24 05:05 Lactic Acid 1.5 mmol/L (0.5-2.2) 02/29/24 10:58 Lactic Acid (Sepsis) 1.7 mmol/L (0.5-2.2) 02/29/24 07:20 Calcium 9.7 mg/dL (8.5-10.5) 03/04/24 05:05 Magnesium 2.0 mg/dL (1.7-2.3) 03/01/24 04:43 Total Bilirubin 3.3 mg/dL (0.15-1.2) H 03/04/24 05:05 AST 34 U/L (0-40) 03/04/24 05:05 ALT 25 U/L (0-41) 03/04/24 05:05 Alkaline Phosphatase 111 U/L (40-130) 03/04/24 05:05 Ammonia 34 umol/L (16-60) 02/29/24 04:54 Total Protein 6.0 g/dL (6.6-8.7) L 03/04/24 05:05 Albumin 4.8 g/dL (3.5-5.2) 03/04/24 05:05 Globulin 1.2 g/dL (1.3-4.6) L 03/04/24 05:05 Lipase 112 U/L (13-60) H 02/29/24 04:54 Urine Color Yellow (Yellow) 02/29/24 05:15 Urine Appearance Clear (CLEAR) 02/29/24 05:15 Urine pH 5.0 (5-7) 02/29/24 05:15 Ur Specific [place] 1.016 (1.005-1.030) 02/29/24 05:15 Urine Protein Negative (Negative) 02/29/24 05:15 Urine Glucose (UA) Negative (Normal) 02/29/24 05:15 Urine Ketones Negative (Negative) 02/29/24 05:15 Urine Blood Negative (Negative) 02/29/24 05:15 Urine Nitrate Negative (Negative) 02/29/24 05:15 Urine Bilirubin Negative (Negative) 02/29/24 05:15 Urine Urobilinogen 0.2 mg/dL (Negative) 02/29/24 05:15 Ur Leukocyte Esterase Negative (Negative) 02/29/24 05:15 Urine RBC 0-2 /hpf (0-2) 02/29/24 05:15 Urine WBC 0-5 /hpf (0-5) 02/29/24 05:15 Ur Squamous Epith Cells 0-5 /hpf (0-5) 02/29/24 05:15 Amorphous Sediment Not Reportable 02/29/24 05:15 Urine Bacteria None seen /hpf (NONE) 02/29/24 05:15 Hyaline Casts 6.17 /lpf 02/29/24 05:15 Fluid Color Yellow 03/03/24 13:38 Fluid Appearance Cloudy 03/03/24 13:38 Fluid Specific Grav 1.014 03/03/24 13:38 Fluid pH 7.5 03/03/24 13:38 Fluid WBC 75 /uL 03/03/24 13:38 Fluid RBC 0 10^3/uL 03/03/24 13:38 Fld Polynuclear WBCs # 0.004 03/03/24 13:38 Fld Polynuclear WBCs % 5.300 % 03/03/24 13:38 Fl Mononucl WBCs #(Auto) 0.071 03/03/24 13:38 Fl Mononuclear % Auto 94.700 % 03/03/24 13:38 Fld Crystal Laterality Not Reportable 03/03/24 13:38 Fluid Glucose 131.0 mg/dL 03/03/24 13:38 Fluid Total Protein 1.4 g/dL 03/03/24 13:38 Fluid Albumin 1.2 g/dL 03/03/24 13:38 Fluid LDH 36 U/L 03/03/24 13:38 Fluid Alk Phosphatase 25 IU/L 03/03/24 13:38 Fluid Cholesterol 10 mg/dL (0-200) 03/03/24 13:38 Fluid Triglycerides 59 mg/dL (0-150) 03/03/24 13:38 Fluid Uric Acid 5 mg/dL 03/03/24 13:38 Pleural Amylase Cancelled 03/03/24 13:38 Blood Type A Negative 03/02/24 18:40 Rho(D) Type Rh negative 03/02/24 18:40 Antibody Screen Negative 03/02/24 18:40 Crossmatch See Detail 03/02/24 18:40 Vitals Last Vital Signs Temp 98.2 F 03/04/24 07:14 Pulse 100 03/04/24 09:52 Resp 16 03/04/24 08:00 BP 103/62 03/04/24 07:14 Pulse Ox 96 03/04/24 08:00 O2 Del Method Room Air 03/04/24 08:00 O2 Flow Rate 0 03/03/24 12:30 Discharge Plan Discharge Patient Disposition: Home Condition: Stable Prescriptions: New sucralfate 1 gram Tablet 1 g PO Q12H 30 Days Qty: 60 0RF Continued polyethylene glycol 3350 [Miralax] 17 gram Powder In Packet 17 g PO DAILY PRN (Reason: Constipation) ondansetron HCl 4 mg tablet 4 mg PO Q8H PRN (Reason: Nausea And Vomiting) 30 Days Qty: 30 0RF albuterol sulfate [Ventolin HFA] 90 mcg/actuation HFA aerosol inhaler 2 inh inhalation Q6H PRN (Reason: shortness of breath or wheezing) Qty: 6.7 0RF lactulose [Constulose] 10 gram/15 mL solution 15 ml PO BID allopurinol 300 mg Tablet 300 mg PO DAILY midodrine 5 mg tablet 15 mg PO TID metoclopramide HCl 5 mg tablet 5 mg PO BID PRN (Reason: Nausea And Vomiting) rifaximin 550 mg Tablet 550 mg PO BID Asmanex Twisthaler 110 mcg/ actuation (30) Aerosol Powdr Breath Activated 2 inh INHALATION DAILY Rx Instructions: administer 1 hour before bedtime tramadol 50 mg tablet 50 mg PO Q8H PRN (Reason: pain) Qty: 10 0RF Changed pantoprazole 40 mg tablet,delayed release (DR/EC) 40 mg PO Q12H 30 Days Qty: 60 0RF Discharge Orders: Discharge Order (Routine); Ordered 03/04/24 Ordered By: Fortino Wagoner Referrals: Alia Sanchez MD [Primary Care Provider] - (We have notified your physician's clinic of the need for a follow-up appointment to be scheduled. If you have not heard from them within the next 2 business days, please call them directly. ) Discharge Diet: Cardiac Discharge Activity: Resume usual activity Patient Instructions: Anemia, Sucralfate (By mouth), Ascites (GEN), Opioid Safety Activity Restrictions/Additional Instructions: -follow up with [facility] -if you develop any bloody or black stools go to emergency room -recheck hgb in 1 week Discharge Attestations Time Spent in Discharge Care*: greater than 30 min Status at Discharge: Cognitive status at discharge: cognitively intact , Behavioral status at discharge: cooperative , Quality Metrics Clinical Quality Measures [ No reported AMI, CVA or VTE this stay] Coding Level of Care Code 23913 Total time (in minutes) for Discharge: 45 Diagnoses Abdominal pain R10.9 Hypotension I95.9 Lactic acidosis E87.20 Chronic kidney disease N18.9 Liver cirrhosis K74.60; R18.8 Ascites presence: with ascites Hepatic cirrhosis type: unspecified hepatic cirrhosis Acute anemia D64.9
[2024-03-04 12:14] LABS: Basophils % 0.2 %; Eosinophils # 0.1 10^3/uL (0.0-0.8); Eosinophils % 1.7 %; Hematocrit 26.3 % (37-53); Lymphocytes # 0.3 10^3/uL (0.8-4.8); Lymphocytes % 3.4 %; Mean Corpuscular HGB Conc 36.5 g/dL (30-55); Mean Corpuscular Hemoglobin 34.8 pg (27-33); Mean Corpuscular Volume 95.3 fl (82-101); Mean Platelet Volume 10.6 fL (7.4-10.4); Monocytes # 1.2 10^3/uL (0.2-0.9); Monocytes % 14.5 %; Neutrophils # 6.57 10^3/uL (1.8-7.7); Neutrophils % 79.8 %; Nucleated Red Blood Cells % 0 %; Platelet Count 97 10^3/cmm (157-399); Red Blood Count 2.76 10^6/uL (3.85-5.65); Red Cell Distribution Width 21.8 % (12.1-15.1); White Blood Count 8.23 10^3/uL (3.29-11.43)
[2024-03-06 19:09] LABS: Amylase, Peritoneal Fluid 18 U/L
== END 2024-03-04 12:50 | disposition home or self-care (01) | DRG 812 ==
LOC: ER 12:21 → MEDSURG 13:29
PROVIDERS: Emergency Medicine; Admitting Provider Internal Medicine; Emergency Provider Family Medicine; PCP Family Medicine; Visit Provider Family Medicine
DX: D64.9 Anemia, unspecified (principal); E87.20 Acidosis, unspecified; R18.8 Other ascites; K74.60 Unspecified cirrhosis of liver; K72.10 Chronic hepatic failure without coma; I95.9 Hypotension, unspecified; N18.9 Chronic kidney disease, unspecified; Z87.891 Personal history of nicotine dependence
CPT/HCPCS: 36415; 36430; 36600; 49083; 71045; 74176; 80051; 80053; 80503; 81001; 82042; 82140; 82150; 82330; 82465; 82805; 82945; 83605; 83615; 83690; 83735; 83986; 84075; 84157; 84315; 84478; 84560; 85014; 85018; 85025; 85610; 85730; 86850; 86900; 86920; 87015; 87040; 87070; 87075; 87116; 87205; 87206; 87801; 88112; 88305; 89050; 93005; 94640; 96365; 96375; 99285; J0696; J0780; J2270; J2405; J2470; J7030; J7050; J7626; P9016; P9040; P9046

== ENCOUNTER → 2024-03-10 11:06 | Day surgery (SDC) | payer OTHER, SELFPAY ==
[2024-03-10 11:48] VITALS: BP 131/76; PULSE 94; RESP 18; TEMP 36.5; O2SAT 99; BMI 22.5
--- NOTE | 2024-03-10 11:54 | US_ITS ---
WS: [id number] ULTRASOUND-GUIDED PARACENTESIS CLINICAL INFORMATION: ascites COMPARISON: None. Procedure Informed consent: The risks, benefits, and alternatives of the procedure were discussed with the avi ent. Verbal and written consent was obtained. Timeout: A timeout was performed to confirm the correct patient, procedure, and site. Preparation: A suitable skin site was identified. The patient was prepped and draped in usual sterile fashion. Lidocaine 1% was used for local anesthesia. Catheter: 4 [place] One-step Yueh catheter. Side: LEFT lower quadrant. Fluid Volume: 6750 ml Color: Clear yellow DISPOSITION: Discarded safely. Complications: None. Patient disposition: Discharged from the department in stable condition. US/US paracentesis abd w [id number] IMPRESSION: Uncomplicated ultrasound-guided paracentesis. Removal of 6750 cc
[2024-03-10 11:57] LABS: Basophils # 0.1 10^3/uL (0.0-0.1); Basophils % 0.9 %; Eosinophils # 0.2 10^3/uL (0.0-0.8); Eosinophils % 2.7 %; Lymphocytes # 0.6 10^3/uL (0.8-4.8); Lymphocytes % 8.8 %; Mean Corpuscular HGB Conc 35.9 g/dL (30-55); Mean Corpuscular Volume 97.5 fl (82-101); Mean Platelet Volume 10.5 fL (7.4-10.4); Monocytes # 0.8 10^3/uL (0.2-0.9); Monocytes % 12.7 %; Neutrophils # 4.74 10^3/uL (1.8-7.7); Neutrophils % 74.4 %; Nucleated Red Blood Cells % 0 %; Platelet Count 75 10^3/cmm (157-399); Red Blood Count 2.77 10^6/uL (3.85-5.65); Red Cell Distribution Width 21.9 % (12.1-15.1); White Blood Count 6.37 10^3/uL (3.29-11.43)
[2024-03-10 12:01] LABS: INR 1.13 (0.8-1.2)
[2024-03-10 12:10] LABS: Alanine Aminotransferase 42 U/L (0-41); Alkaline Phosphatase 146 U/L (40-130); Anion Gap 19.5 (5-19); Aspartate Amino Transferase 65 U/L (0-40); Blood Urea Nitrogen 38 mg/dL (6-20); Calcium 9.8 mg/dL (8.5-10.5); Carbon Dioxide 20 mmol/L (22-29); Chloride 95 mmol/L (98-107); Creatinine Clr Calc Pharmacy 39.0041; Globulin 1.7 g/dL (1.3-4.6); Glucose 118 mg/dL (65-115); Osmolality Calculated 282 mOsm/kg (285-295); Potassium 3.5 mmol/L (3.5-5.1); Sodium 131 mmol/L (136-145); Total Bilirubin 4.7 mg/dL (0.15-1.2); Total Protein 6.7 g/dL (6.6-8.7)
[2024-03-10 13:08] LABS: Cyto Order Verification No Order
[2024-03-10 13:14] LABS: Mononuclear #, Pertinoneal Fl 0.072 10^3/uL; Polynuclear # Cells, Perit 0.008 10^3/uL; RBC Pertioneal Fluid 1 10^3/uL; WBC Peritoneal Fluid 80 /uL
[2024-03-10] MEDS: albumin 25 G/100 ML BAG 60 G IV (13:28)
[2024-03-10 13:32] LABS: Appearance, Peritoneal Fluid Hazy (Clear); Color, Peritoneal Fluid Pale Yellow (Pale Yellow); Pathology Referral Yes
[2024-03-10 13:41] VITALS: BP 113/70; PULSE 85; RESP 18; O2SAT 99
== END ==
PROVIDERS: Radiology Neuroradiology; PCP Family Medicine; Visit Provider Internal Medicine Gastroenterology
PROC: (CPT 49082; principal; 2024-03-10 12:00)
DX: R18.8 Other ascites (principal)
CPT/HCPCS: 36415; 49083; 80053; 80503; 85025; 85610; 87070; 87075; 87205; 89050; P9046

== ENCOUNTER 2024-03-15 15:22 | Observation (INO) | payer OTHER, SELFPAY ==
[2024-03-15] VITALS (16 sets, daily range): BP systolic 108–148; BP diastolic 69–79; PULSE 94–119; RESP 14–21; TEMP 36.7–36.9; O2SAT 94–98
--- NOTE | 2024-03-15 15:50 | XRR_ITS ---
PROCEDURE INFORMATION: Exam: XR Chest Exam date and time: 03/15/2024 4:06 PM Age: 48 years old Clinical indication: Cough and dyspnea; Patient HX: Dyspnea; Cough TECHNIQUE: Imaging protocol: Radiologic exam of the chest. Views: 1 view. COMPARISON: CR (CHEST, ) 02/29/2024 5:56 AM FINDINGS: Lungs: Hypoinflation with bronchovascular crowding. No focal consolidation. Streaky bibasilar opacities likely representing atelectasis. Pleural spaces: Unremarkable. No pleural effusion. No pneumothorax. Heart/Mediastinum: Unremarkable. No cardiomegaly. Bones/joints: Unremarkable. XR/XR chest 1V portable [id number] IMPRESSION: No acute cardiopulmonary abnormality.
--- NOTE | 2024-03-15 15:59 | ECG_ITS ---
[employer] [facility] Test Date: 2024-03-15 Pat Name: Chase Rivero Department: Room: Gender: Male Grinder: : 1975 Requested By: Garth Howell Order Number: [id number] Demarcus MD: Kendrick Gordon M.D. Measurements Intervals [place] Rate: 102 P: 37 CA: 150 QRS: -27 QRSD: 93 T: -14 QT: 336 QTc: 438 Interpretive Statements SINUS TACHYCARDIA VOLTAGE CRITERIA FOR LVH [MEETS CRITERIA IN ONE OF: R(aVL), S(V1), R(V5), R(V5/V6)+S(V1)] POSSIBLE ANTERIOR MYOCARDIAL INFARCTION , PROBABLY OLD [30 ms Q WAVE IN V3/V4, OR R < 0.2 mV IN V4] Compared to ECG 02/29/2024 05:54:40 Left ventricular hypertrophy now present Myocardial infarct finding now present Sinus rhythm no longer present T-wave abnormality no longer present Electronically Signed On 03-15-2024 22:56:48 INTERNAL COMBUSTION ENGINE INSPECTOR by Kendrick Gordon M.D. [email or web address]
--- NOTE | 2024-03-15 16:12 | ED_ITS ---
HPI - Chest Pain 2 General: Chief Complaint: Chest Pain Stated Complaint: Chest pain, n/v Time Seen by Provider: 03/15/24 15:48 History of Present Illness: 48-year-old male presents emergency room complaining left-sided chest pain began this morning. He had some nausea and vomiting vomited several times began yesterday. He has not had any hematemesis or coffee-ground emesis he has had some increased abdominal distention. Patient has known liver cirrhosis he has actually been evaluated at [facility] they are looking to either do a liver transplant possibly liver kidney transplant. He has been slightly short of breath had bodyaches some sweats and chills his is also had upper respiratory symptoms with chills and a cough. He has no known history of any upper GI bleeds but he has had anemia requiring transfusions. Associated symptoms: Reports abdominal pain, dyspnea, nausea and vomiting; Deny fever(s) Related Data Home Medications ?Medication ?Instructions ?Recorded ?Confirmed allopurinol 300 mg tablet 300 mg PO DAILY 06/29/2303/15 polyethylene glycol 3350 17 gram 17 g PO DAILY PRN Con stipation 12/29/23 03/22/24 oral powder packet (Miralax) mometasone 110 mcg/actuation(30 2 inh inhalation DAILY 01/31/24 03/22/24 doses) breath activated powder inhaler (Asmanex Twisthaler) metoclopramide HCl 5 mg tablet 5 mg PO BID PRN Nausea And Vomiting 02/06/24 03/22/24 midodrine 5 mg tablet 10 mg PO TID 02/06/24 rifaximin 550 mg tablet 550 mg PO BID 02/06/2403/22 lactulose 10 gram/15 mL oral 15 ml PO BID 02/29/2403/15 solution (Constulose) hydrocodone 5 mg-acetaminophen 325 0.5 tab PO PRN PRN Pain 03/22/24 03/22/24 mg tablet melatonin 5 mg chewable tablet 5 mg PO DAILY sleep 03/1503/22/24 Previous Rx's ?Medication ?Instructions ?Recorded ondansetron HCl 4 mg tablet 4 mg PO Q8H PRN Nausea And 01/02/24 Vomiting 30 days #30 tabs albuterol sulfate 90 mcg/actuation 2 inh inhalation Q6 H PRN shortness 01/08/24 aerosol inhaler (Ventolin HFA) of breath or wheezing # 6.7 grams tramadol 50 mg tablet 50 mg PO Q8H PRN pain #10 ta bs 02/02/24 pantoprazole 40 mg tablet,delayed 40 mg PO Q12H 30 day s #60 tabs 03/04/24 release sucralfate 1 gram tablet 1 g PO Q12H 30 days #60 tabs 03/04/24 furosemide 20 mg tablet 20 mg PO DAILY@0800 PRN Abdo carla 03/25/24 Distention #20 tabs sodium chloride 1,000 mg soluble 1,000 mg PO BID 14 da ys #28 tabs 03/25/24 tablet Allergies Allergy/AdvReac Type Severity Reaction Status Date / Time No Known Allergies Allergy Verified 03/21/24 08:11 Review of Systems 2 Const: Denies: fever(s) or chills Card: Denies: chest pain Resp: Reports: dyspnea, non-productive cough and wheezing GI: Reports: abdominal pain, nausea and vomiting : Denies: dysuria, urinary frequency or urinary urgency Musc: Denies: neck pain or back pain Skin/Breast: Denies: rash PFSH ED 2 PFSH: Medical History SBP (spontaneous bacterial peritonitis) Acute hepatic failure Abdominal ascites Smoker Colitis Low oxygen saturation Enteropathy Smoking addiction Alcohol use disorder Thrombocytopenia Liver cirrhosis Hematuria Ascites due to alcoholic cirrhosis Abdominal pain 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 History of colon polyps Rectal polyp 10 and 15 cm, cecum biopsy Sigmoid colon polyp Seasonal allergies Splenomegaly Enterocolitis 2016 Surgical History Status post colonoscopy with polypectomy H/O esophagogastroduodenoscopy Vasectomy status H/O left inguinal hernia repair Family History Denies family history of Cancer Social History Smoking and tobacco/nicotine status: former use of tobacco/nicotine Alcohol intake: former Substance/Drug Use: never Lives independently: Yes Housing: House Marital status: 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 Physical Exam 2 Const: GENERAL APPEARANCE: cooperative ORIENTATION/CONSCIOUSNESS: Yes awake, Yes oriented to person, Yes oriented to place and Yes oriented to time HENMT: COMMON NORMALS: normocephalic, atraumatic and hearing grossly normal bilaterally HEAD & SCALP: normocephalic and atraumatic Resp: COMMON NORMALS: normal respiratory effort, No retractions, No use of accessory muscles and clear to auscultation bilaterally AUSCULTATION: clear to auscultation bilaterally Cardio: COMMON NORMALS: regular rate, regular rhythm and No murmurs present (Cardio) RATE: regular rate RHYTHM: regular rhythm GI: INSPECTION: Yes abdominal distension and Yes Fluid wave present A USCULTATION: Yes normoactive bowel sounds PALPATION: Yes Tenderness to palpation present (GI), No Guarding due to palpation present (GI) and Yes Hepatomegaly present PERCUSSION: Fluid wave present Extremity: COMMON NORMALS: normal to inspection, capillary refill normal, no clubbing, cyanosis or edema, no calf tenderness and no pedal edema Neuro: SENSORIUM/ORIENTATION: Yes oriented to person, Yes oriented to place and Yes oriented to time Skin: COMMON NORMALS: no rashes or lesions noted GENERAL SKIN EXAM: no rashes or lesions noted Course 2 Vital Signs: Vital signs: Vital Signs Temperature 97.6 F 03/17/24 15:52 Pulse Rate 82 03/17/24 15:52 Respiratory Rate 16 03/17/24 15:52 Blood Pressure 112/65 03/17/24 15:52 Pulse Oximetry 100 03/17/24 15:52 Oxygen Delivery Me thod Room Air 03/17/24 15:52 MDM - Chest Pain Medical Decision Making Hyponatremia persistent nausea vomiting abdominal pain white count normal may need to consider SBP. Medical Records I reviewed the patient's medical records. Lab Data I reviewed the patient's lab results. 03/17/24 02:43 03/17/24 02:43 Radiology Impressions Chest X-Ray 03/15/24 15:50 IMPRESSION: No acute cardiopulmonary abnormality. Abdomen/Pelvis CT 03/15/24 17:49 IMPRESSION: Cirrhosis with diffuse ascites. Consider MRI of the liver. Paracentesis Ultrasound 03/17/24 08:22 IMPRESSION: Uncomplicated paracentesis yielding 9000 ml of peritoneal fluid. Laboratory Results WBC 7.37 10^3/uL (3.29-11.43) 03/15/24 16:22 RBC 2.65 10^6/uL (3.85-5.65) L 03/15/24 16:22 Hgb 9.50 g/dL (11.27-16.99) L 03/15/24 16:22 Hct 26.1 % (37-53) L 03/15/24 16:22 MCV 98.5 fl (82-101) 03/15/24 16:22 MCH 35.8 pg (27-33) H 03/15/24 16:22 MCHC 36.4 g/dL (30-55) 03/15/24 16:22 RDW 22.0 % (12.1-15.1) H 03/15/24 16:22 Plt Count 87 10^3/cmm (157-399) L 03/15/24 16:22 MPV 9.9 fL (7.4-10.4) 03/15/24 16:22 Neut % (Auto) 77.0 % 03/15/24 16:22 Lymph % (Auto) 6.1 % 03/15/24 16:22 [place] % (Auto) 14.4 % 03/15/24 16:22 Eos % (Auto) 1.5 % 03/15/24 16:22 Baso % (Auto) 0.5 % 03/15/24 16: Neut # (Auto) 5.67 10^3/uL (1.8-7.7) 03/15/24 16:22 Lymph # (Auto) 0.5 10^3/uL (0.8-4.8) L 03/15/24 16:22 [place] # (Auto) 1.1 10^3/uL (0.2-0.9) H 03/15/24 16:22 Eos # (Auto) 0.1 10^3/uL (0.0-0.8) 03/15/24 16:22 Baso # (Auto) 0.0 10^3/uL (0.0-0.1) 03/15/24 16: Nucleated RBC % (auto) 0 % 03/15/24 16: Nucleated RBCs # 0.0 /100WBC 03/15/24 16: PT 15.80 SECONDS (12.1-14.9) H 03/15/24 16:22 INR 1.17 (0.8-1.2) 03/15/24 16:22 APTT 33.9 SECONDS (23.9-36.7) 03/15/24 16:22 Sodium 123 mmol/L (136-145) L 03/15/24 16:22 Potassium 3.8 mmol/L (3.5-5.1) 03/15/24 16:22 Chloride 89 mmol/L (98-107) L 03/15/24 16:22 Carbon Dioxide 19 mmol/L (22-29) L 03/15/24 16:22 Anion Gap 18.8 (5-19) 03/15/24 16:22 BUN 43 mg/dL (6-20) H 03/15/24 16:22 Creatinine 2.4 mg/dL (0.7-1.2) H 03/15/24 16:22 GFR Calculation 28.9 mL/min (90-130) L 03/15/24 16:22 Glucose 143 mg/dL (65-115) H 03/15/24 16:22 Calculated Osmolality 269 mOsm/kg (285-295) L 03/15/24 16:22 Lactic Acid 1.8 mmol/L (0.5-2.2) 03/15/24 16:22 Calcium 9.6 mg/dL (8.5-10.5) 03/15/24 16:22 Total Bilirubin 4.0 mg/dL (0.15-1.2) H 03/15/24 16:22 AST 59 U/L (0-40) H 03/15/24 16:22 ALT 40 U/L (0-41) 03/15/24 16:22 Alkaline Phosphatase 151 U/L (40-130) H 03/15/24 16:22 Ammonia 36 umol/L (16-60) 03/15/24 16:22 Troponin T Baseline 22 ng/L (0-15) H 03/15/24 16:22 Troponin T 120 Minute 20.48 ng/L (0-15) H 03/15/24 18:30 Delta Troponin T -1.52 ABS# (0-10) L 03/15/24 18:30 C-Reactive Protein 8.1 mg/L (0.0-4.9) H 03/15/24 16:22 Total Protein 6.3 g/dL (6.6-8.7) L 03/15/24 16:22 Albumin 4.6 g/dL (3.5-5.2) 03/15/24 16:22 Globulin 1.7 g/dL (1.3-4.6) 03/15/24 16:22 Procalcitonin 0.44 ng/mL (0-0.5) 03/15/24 16:22 Urine Color Yellow (Yellow) 03/15/24 16:51 Urine Appearance Clear (CLEAR) 03/15/24 16:51 Urine pH 5.5 (5-7) 03/15/24 16:51 Ur Specific [place] 1.016 (1.005-1.030) 03/15/24 16:51 Urine Protein Negative (Negative) 03/15/24 16:51 Urine Glucose (UA) Negative (Normal) 03/15/24 16:51 Urine Ketones Negative (Negative) 03/15/24 16:51 Urine Blood Negative (Negative) 03/15/24 16:51 Urine Nitrate Negative (Negative) 03/15/24 16:51 Urine Bilirubin Negative (Negative) 03/15/24 16:51 Urine Urobilinogen 0.2 mg/dL (Negative) 03/15/24 16:51 Ur Leukocyte Esterase Negative (Negative) 03/15/24 16:51 Urine RBC 0-2 /hpf (0-2) 03/15/24 16:51 Urine WBC 0-5 /hpf (0-5) 03/15/24 16:51 Ur Squamous Epith Cells 0-5 /hpf (0-5) 03/15/24 16:51 Amorphous Sediment Not Reportable 03/15/24 16:51 Urine Bacteria None seen /hpf (NONE) 03/15/24 16:51 Hyaline Casts 2.46 /lpf 03/15/24 16:51 Coronavirus (PCR) Negative (Negative) 03/15/24 18:30 Influenza A (PCR) Negative (Negative) 03/15/24 18:30 Influenza Type B (PCR) Negative (Negative) 03/15/24 18:30 RSV (PCR) Negative (Negative) 03/15/24 18:30 All radiology interpretation(s) finalized by discharge Discharge Plan Discharge Patient Disposition: Admitted As Inpatient Admit Provider: Fortino Wagoner Clinical Impression: Liver cirrhosis, Transaminitis, Alcoholic cirrhosis of liver, Acute hyponatremia, Hepatorenal syndrome Condition: Stable Discharge Diet: Cardiac Discharge Activity: Resume usual activity Coding Level of Care Code ED Teletype Adjuster for Jess López
[2024-03-15 16:35] LABS: Basophils % 0.5 %; Eosinophils # 0.1 10^3/uL (0.0-0.8); Eosinophils % 1.5 %; Hematocrit 26.1 % (37-53); Lymphocytes # 0.5 10^3/uL (0.8-4.8); Lymphocytes % 6.1 %; Mean Corpuscular HGB Conc 36.4 g/dL (30-55); Mean Corpuscular Hemoglobin 35.8 pg (27-33); Mean Corpuscular Volume 98.5 fl (82-101); Mean Platelet Volume 9.9 fL (7.4-10.4); Monocytes # 1.1 10^3/uL (0.2-0.9); Monocytes % 14.4 %; Neutrophils # 5.67 10^3/uL (1.8-7.7); Nucleated Red Blood Cells % 0 %; Platelet Count 87 10^3/cmm (157-399); Red Blood Count 2.65 10^6/uL (3.85-5.65); White Blood Count 7.37 10^3/uL (3.29-11.43)
[2024-03-15 16:48] LABS: INR 1.17 (0.8-1.2); Partial Thromboplastin Time 33.9 SECONDS (23.9-36.7)
[2024-03-15 16:53] LABS: Alanine Aminotransferase 40 U/L (0-41); Albumin Level 4.6 g/dL (3.5-5.2); Alkaline Phosphatase 151 U/L (40-130); Anion Gap 18.8 (5-19); Aspartate Amino Transferase 59 U/L (0-40); Blood Urea Nitrogen 43 mg/dL (6-20); Calcium 9.6 mg/dL (8.5-10.5); Carbon Dioxide 19 mmol/L (22-29); Chloride 89 mmol/L (98-107); Creatinine Clr Calc Pharmacy 35.5625; Globulin 1.7 g/dL (1.3-4.6); Glomerular Filtration Rate 28.9 mL/min (90-130); Glucose 143 mg/dL (65-115); Osmolality Calculated 269 mOsm/kg (285-295); Potassium 3.8 mmol/L (3.5-5.1); Sodium 123 mmol/L (136-145); Total Protein 6.3 g/dL (6.6-8.7); Troponin(5th) Baseline 22 ng/L (0-15)
[2024-03-15 16:56] LABS: Ammonia 36 umol/L (16-60)
[2024-03-15 17:11] LABS: Bilirubin Urine Negative (Negative); Blood Urine Negative (Negative); Glucose Urine UA Negative (Normal); Ketones Urine Negative (Negative); Leukocyte Esterase Urine Negative (Negative); Nitrate Urine Negative (Negative); Protein Urine Negative (Negative); Specific Gravity, Urine 1.016 (1.005-1.030); Urine Appearance Clear (CLEAR); Urine Color Yellow (Yellow); Urobilinogen Urine 0.2 mg/dL (Negative); pH Urine 5.5 (5-7)
[2024-03-15 17:16] LABS: Add Urine Microscopic? YES; Bacteria Urine None Seen /hpf; Hyaline Casts Urine 2.46 /lpf; RBC Urine 0-2 /hpf (0-2); Squamous Epithelial Cell Urine 0-5 /hpf (0-5); WBC Urine 0-5 /hpf (0-5)
--- NOTE | 2024-03-15 17:45 | P.HP_ITS ---
Providers/Chief Complaint 2 Primary Care Provider: Alia Sanchez MD Chief Complaint: Chest pain, n/v History of Present Illness Chase Rivero is a 48 year old male with a past medical history of end-stage liver disease currently on liver transplant list, CKD, hepatorenal syndrome, plans to be on kidney transplant list, history of recurrent ascites, recurrent paracentesis, hernia repair, acute on chronic anemia requiring transfusion, chronic hypotension requiring midodrine, history of hyponatremia, who presents [facility] for fatigue, malaise, chest pain. Patient tells me that he has been feeling well for the last few days, his has also been sick, fatigue, malaise, also reports nonspecific abdominal pain, diarrhea. Denies any hemoptysis, no hematemesis, no bloody or black stools, no bloody diarrhea. He also reports episodes of nausea and vomiting. He had chest pain this morning, nonradiating, no nausea, no vomiting, no diaphoresis. Review of Systems 2 Card: Reports: chest pain Resp: Denies: dyspnea GI: Reports: abdominal pain, nausea and diarrhea : Denies: flank pain Musc: Denies: back pain Medications/Allergies Home Medications Medication Instructions Recorded Confirmed Last Taken Type allopurinol 300 mg tablet 300 mg PO DAILY 06/29/23 03/15/24 03/15/24 History polyethylene glycol 3350 17 gram 17 g PO DAILY PRN Constipation 12/29/23 03/15/24 03/14/24 History oral powder packet (Miralax) ondansetron HCl 4 mg tablet 4 mg PO Q8H PRN Nausea And 01/02/24 03/15/24 03/09/24 Rx Vomiting 30 days #30 tabs albuterol sulfate 90 mcg/actuation 2 inh inhalation Q6H PRN shortness 01/08/24 03/15/24 03/14/24 Rx aerosol inhaler (Ventolin HFA) of breath or wheezing #6.7 grams mometasone 110 mcg/actuation(30 2 inh inhalation DAILY 01/31/24 03/15/24 03/14/24 History doses) breath activated powder inhaler (Asmanex Twisthaler) tramadol 50 mg tablet 50 mg PO Q8H PRN pain #10 tabs 02/02/24 03/15/24 03/09/24 Rx metoclopramide HCl 5 mg tablet 5 mg PO BID PRN Nausea And Vomiting 02/06/24 03/15/24 03/10/24 History midodrine 5 mg tablet 10 mg PO TID 02/06/24 03/15/24 03/15/24 History rifaximin 550 mg tablet 550 mg PO BID 02/06/24 03/15/24 03/15/24 History lactulose 10 gram/15 mL oral 15 ml PO BID 02/29/24 03/15/24 03/15/24 History solution (Constulose) pantoprazole 40 mg tablet,delayed 40 mg PO Q12H 30 days #60 tabs 03/04/24 03/15/24 03/15/24 Rx release sucralfate 1 gram tablet 1 g PO Q12H 30 days #60 tabs 03/04/24 03/15/24 03/15/24 Rx Allergies Allergy/AdvReac Type Severity Reaction Status Date / Time No Known Allergies Allergy Verified 03/15/24 15:42 PFSH Acute 2 PFSH: Medical History SBP (spontaneous bacterial peritonitis) Acute hepatic failure Abdominal ascites Smoker Colitis Low oxygen saturation Enteropathy Smoking addiction Alcohol use disorder Thrombocytopenia Liver cirrhosis Hematuria Ascites due to alcoholic cirrhosis Abdominal pain 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 History of colon polyps Rectal polyp 10 and 15 cm, cecum biopsy Sigmoid colon polyp Seasonal allergies Splenomegaly Enterocolitis 2016 Surgical History Status post colonoscopy with polypectomy H/O esophagogastroduodenoscopy Vasectomy status H/O left inguinal hernia repair Family History Denies family history of Cancer Social History Smoking and tobacco/nicotine status: former use of tobacco/nicotine Alcohol intake: former Substance/Drug Use: never Lives independently: Yes Housing: House 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 status: 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 Vitals/I&O/Wt Last Vital Signs Temp 98.1 F 03/15/24 15:37 Pulse 103 H 03/15/24 16:42 Resp 21 H 03/15/24 16:42 BP 148/79 03/15/24 16:42 Pulse Ox 98 03/15/24 16:42 O2 Del Method Room Air 03/15/24 15:37 Weight last 48 hrs Weight 66.224 kg Physical Exam 2 Const: COMMON NORMALS: no acute distress and patient oriented x3 HENMT: COMMON NORMALS: normocephalic HEAD & SCALP: normocephalic Eye: COMMON NORMALS: Equal, round and reactive pupils present OTHER: Scleral icterus, jaundice Neck/C-Spine: COMMON NORMALS: no JVD Resp: COMMON NORMALS: normal respiratory effort, No retractions, No use of accessory muscles and clear to auscultation bilaterally AUSCULTATION: clear to auscultation bilaterally Cardio: COMMON NORMALS: regular rate, regular rhythm, S1 normal heart sound present and S2 normal heart sound present RATE: tachycardic RHYTHM: r egular rhythm HEART SOUNDS: S1 normal heart sound present and S2 normal heart sound present GI: OTHER: Abdomen soft, distended, fluid wave present, diffuse tenderness, no guarding, no rebound, rigidity Extremity: COMMON NORMALS: no calf tenderness and no pedal edema Neuro: COMMON NORMALS: patient oriented x3, CN's II-XII intact bilaterally and moves all extremities Psych: COMMON NORMALS: mental status grossly normal Data 03/15/24 16:22 03/15/24 16:22 A&P Assessment and plan (1) Cardiorenal syndrome: (2) Hyponatremia: (3) Cirrhosis: (4) Hyperbilirubinemia: (5) Umbilical hernia: (6) SBP (spontaneous bacterial peritonitis): (7) Acute kidney injury: (8) Chest pain: (9) Anemia: (10) Metabolic acidosis: (11) Dehydration: Plan Nausea, vomiting, abdominal pain -History of abdominal hernia repair, recurrent ascites, SBP -Zofran and Reglan for nausea control -Serial abdominal exams -IV fluids -Lactic acid -Advance diet as tolerated Metabolic acidosis -Likely from LAQUITA, dehydration -IV fluids History of SBP -Will order paracentesis -Paracentesis studies ordered -CRP, Pro-Pieter, sed rate, blood cultures -CT abdomen pelvis Fatigue, malaise -Respiratory viral panel -Stool studies Hyponatremia -History of hypovolemic hyponatremia -Serum sodium fluctuates between 1 22-1 33 -Gentle IV hydration at 50 cc an hour -Serum sodiums every 4 hours -Neurochecks, no stroke scale, aspiration precautions, seizure precautions Acute on chronic thrombocytopenia, monitor Chest pain -Serial EKGs, serial troponins, telemetry monitoring LAQUITA on CKD -Component of hepatorenal syndrome -Likely component of dehydration -IV fluids History of anemia, requiring PRBC -Hold Lovenox for DVT prophylaxis Full code S CDs for DVT prophylaxis Attestations 2 Medical Necessity Statement*: Patient requires hospitalization for nausea, vomiting, abdominal pain, fatigue, malaise, chest pain, hyponatremia, LAQUITA Diagnoses Cardiorenal syndrome I13.10 Hyponatremia E87.1 Cirrhosis K74.60 Hyperbilirubinemia E80.6 Umbilical hernia K42.9 SBP (spontaneous bacterial peritonitis) K65.2 Acute kidney injury N17.9 Chest pain R07.9 Anemia D64.9 Metabolic acidosis E87.20 Dehydration E86.0
--- NOTE | 2024-03-15 17:49 | CTR_ITS ---
PROCEDURE INFORMATION: Exam: CT Abdomen And Pelvis Without Contrast Exam date and time: 03/15/2024 6:37 PM Age: 48 years old Clinical indication: Bloating and nausea and vomiting; Prior surgery; Surgery date: 6+ months; Patient HX: N/v; Abdominal distention; HX hernia repair TECHNIQUE: Imaging protocol: Computed tomography of the abdomen and pelvis without contrast. Radiation optimization: All CT scans at this facility use at least one of these dose optimization techniques: automated exposure control; mA and/or kV adjustment per patient size (includes targeted exams where dose is matched to clinical indication); or iterative reconstruction. COMPARISON: CT abdomen pelvis wo con [id number] 03/03/2024 2:39 PM RADIATION DOSE METRICS: Total DLP (mGy-cm): 490.36 FINDINGS: Liver: Cirrhosis. Heterogeneous parenchyma. Gallbladder and biliary ducts: Cholelithiasis. Pancreas: Pancreatic atrophy. Spleen: Splenic granuloma. Adrenal glands: Thickening of the bilateral adrenal glands. Kidneys and ureters: Diminutive left kidney. Stomach and bowel: Unremarkable. No obstruction. No mucosal thickening. Appendix: Normal appendix. Intraperitoneal space: Diffuse ascites. Vasculature: Unremarkable. No abdominal aortic aneurysm. Lymph nodes: Unremarkable. No enlarged lymph nodes. Urinary bladder: Diminutive bladder. Reproductive: Unremarkable as visualized. Bones/joints: Unremarkable. No acute fracture. Soft tissues: Unremarkable. CT/CT abdomen pelvis wo con [id number] IMPRESSION: Cirrhosis with diffuse ascites. Consider MRI of the liver.
[2024-03-15 18:12] LABS: C Reactive Protein 8.1 mg/L (0.0-4.9); Lactic Sepsis W/Reflex 1.8 mmol/L (0.5-2.2)
[2024-03-15 18:19] LABS: Procalcitonin 0.44 ng/mL (0-0.5)
--- NOTE | 2024-03-15 18:23 | ECG_ITS ---
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 Measurements Intervals [place] Rate: 94 P: 46 DE: 150 QRS: -21 QRSD: 86 T: -4 QT: 366 QTc: 460 Interpretive Statements SINUS RHYTHM VOLTAGE CRITERIA FOR LVH [MEETS CRITERIA IN ONE OF: R(aVL), S(V1), R(V5), R(V5/V6)+S(V1)] POSSIBLE ANTERIOR MYOCARDIAL INFARCTION , PROBABLY OLD [30 ms Q WAVE IN V3/V4, OR R < 0.2 mV IN V4] Compared to ECG 03/15/2024 15:27:17 Sinus tachycardia no longer present Myocardial infarct finding still present Electronically Signed On 03-15-2024 23:20:39 LUMBER CARRIER OPERATOR by Kendrick Gordon M.D. [id number]
[2024-03-15 19:26] LABS: Troponin 5 2HR 20.48 ng/L (0-15)
[2024-03-15 19:30] LABS: Troponin 5 2HR Delta -1.52 ABS# (0-10)
[2024-03-15 19:41] LABS: Influenza A NEGATIVE (Negative); Influenza B NEGATIVE (Negative); Respiratory Syncytial Virus Ce NEGATIVE (Negative); SARS-CoV-2 PCR NEGATIVE (Negative)
[2024-03-15] MEDS: cefTRIAXone 2,000 mg SDV 2000 MG IVP (21:25)
[2024-03-15] MEDS: sucralfate 1 gm Tablet PO (21:26)
[2024-03-15] MEDS: sodium chloride 0.9% 1,000 ML 50 ML IV (21:26)
[2024-03-15] MEDS: midodrine 5 mg TABLET 10 MG PO (21:26)
[2024-03-15] MEDS: pantoprazole DR 40 mg Tablet PO (21:26)
[2024-03-15] MEDS: morphine 4 mg/mL SDV 1 mL 1 MG IVP (21:30)
[2024-03-15] MEDS: metoclopramide 5 mg/mL SDV 2 mL IVP (21:30)
--- NOTE | 2024-03-15 22:23 | ECG_ITS ---
[facility] Date: 2024-[facility]15 Pat Name: Chase Rivero Department: Room: 253 Gender: Male Wellness Assistant: : 1975 Requested By: Garth Howell Order Number: [id number] Demarcus MD: Kendrick Gordon M.D. Measurements Intervals [place] Rate: 96 P: 34 MT: 154 QRS: -34 QRSD: 97 T: 18 QT: 373 QTc: 472 Interpretive Statements SINUS RHYTHM LEFT AXIS DEVIATION [QRS AXIS < -30] PATTERN CONSISTENT WITH PULMONARY DISEASE Compared to ECG 03/15/2024 19:04:54 Left-axis deviation now present Left ventricular hypertrophy no longer present Myocardial infarct finding no longer present Electronically Signed On 03-15-2024 23:20:24 ARMHOLE SEWER by Kendrick Gordon M.D. [id number]
[2024-03-15 23:47] LABS: Sodium 126 mmol/L (136-145); Thyroid Stimulating Hormone 4.63 uIU/mL (0.27-4.20)
[2024-03-16] VITALS (14 sets, daily range): BP systolic 104–122; BP diastolic 62–74; PULSE 87–111; RESP 14–18; TEMP 36.6–36.9; O2SAT 94–98
[2024-03-16] MEDS: metoclopramide 5 mg/mL SDV 2 mL IVP ×2 (03:03→15:42)
[2024-03-16] MEDS: morphine 4 mg/mL SDV 1 mL 1 MG IVP ×4 (03:03→20:24)
[2024-03-16 04:45] LABS: Basophils % 0.4 %; Eosinophils # 0.2 10^3/uL (0.0-0.8); Eosinophils % 2.9 %; Hematocrit 24.4 % (37-53); Lymphocytes # 0.6 10^3/uL (0.8-4.8); Lymphocytes % 8.6 %; Mean Corpuscular Hemoglobin 34.4 pg (27-33); Mean Corpuscular Volume 101.2 fl (82-101); Mean Platelet Volume 10.5 fL (7.4-10.4); Monocytes # 1.4 10^3/uL (0.2-0.9); Monocytes % 19.6 %; Neutrophils # 4.73 10^3/uL (1.8-7.7); Neutrophils % 68.1 %; Nucleated Red Blood Cells % 0 %; Platelet Count 84 10^3/cmm (157-399); Red Blood Count 2.41 10^6/uL (3.85-5.65); Red Cell Distribution Width 22.5 % (12.1-15.1); White Blood Count 6.95 10^3/uL (3.29-11.43)
[2024-03-16 05:13] LABS: Alanine Aminotransferase 34 U/L (0-41); Albumin Level 4.1 g/dL (3.5-5.2); Alkaline Phosphatase 127 U/L (40-130); Anion Gap 17.8 (5-19); Aspartate Amino Transferase 48 U/L (0-40); Blood Urea Nitrogen 42 mg/dL (6-20); Calcium 9.3 mg/dL (8.5-10.5); Carbon Dioxide 19 mmol/L (22-29); Chloride 96 mmol/L (98-107); Creatinine Clr Calc Pharmacy 40.4683; Globulin 1.8 g/dL (1.3-4.6); Glomerular Filtration Rate 33.7 mL/min (90-130); Glucose 100 mg/dL (65-115); Osmolality Calculated 279 mOsm/kg (285-295); Potassium 3.8 mmol/L (3.5-5.1); Sodium 129 mmol/L (136-145); Total Bilirubin 2.3 mg/dL (0.15-1.2); Total Protein 5.9 g/dL (6.6-8.7)
[2024-03-16 05:18] LABS: Sodium 130 mmol/L (136-145)
[2024-03-16] MEDS: pantoprazole DR 40 mg Tablet PO ×2 (09:39→20:26)
[2024-03-16] MEDS: rifaximin 200 mg Tablet 600 MG PO ×2 (09:39→18:07)
[2024-03-16] MEDS: sucralfate 1 gm Tablet PO ×2 (09:39→20:26)
[2024-03-16] MEDS: allopurinol 300 mg Tablet PO (09:39)
[2024-03-16] MEDS: lactulose oral liq 20 gm/30 mL UDC 15 GM PO ×2 (09:40→18:06)
[2024-03-16] MEDS: ondansetron 2 mg/ML SDV 2 mL 4 MG IVP ×2 (09:40→20:24)
[2024-03-16] MEDS: midodrine 5 mg TABLET 10 MG PO ×3 (09:43→20:26)
[2024-03-16 11:14] LABS: C.Diff PCR (Lab) NEGATIVE (Negative)
--- NOTE | 2024-03-16 15:37 | P.PN_ITS ---
Subjective 2 Subjective: Patient was seen this morning, he does complain of feeling unwell, fatigue, malaise, feeling a bit nauseous he did have episode of diarrhea this morning Vitals/I&O/Wt Last Vital Signs Temp 98.0 F 03/16/24 12:00 Pulse 96 03/16/24 12:00 Resp 15 03/16/24 12:00 BP 104/62 03/16/24 12:00 Pulse Ox 96 03/16/24 12:00 O2 Del Method Room Air 03/16/24 12:00 03/16/24 03/16/24 03/16/24 06:59 14:59 22:59 Intake Total 780 / 780 1466.667 / 1466.667 Output Total 125 / 125 Balance 655 / 655 1466.667 / 1466.667 Weight last 48 hrs Weight 65.499 kg Weight 65.431 kg Weight 66.224 kg Physical Exam 2 Const: COMMON NORMALS: no acute distress and patient oriented x3 Resp: COMMON NORMALS: normal respiratory effort, No retractions, No use of accessory muscles and clear to auscultation bilaterally AUSCULTATION: clear to auscultation bilaterally Cardio: COMMON NORMALS: regular rate, regular rhythm, S1 normal heart sound present and S2 normal heart sound present RATE: regular rate RHYTHM: r egular rhythm HEART SOUNDS: S1 normal heart sound present and S2 normal heart sound present GI: OTHER: Abdomen soft, distended, scattered bowel sounds, no guarding, no rebound, no rigidity Extremity: COMMON NORMALS: no pedal edema Neuro: COMMON NORMALS: patient oriented x3 Psych: COMMON NORMALS: mental status grossly normal Data 03/16/24 02:51 03/16/24 02:51 Micro: Microbiology 03/15/24 22:40 Blood Culture - Preliminary Blood SPECIMEN COLLECTED 03/15/24 16:22 Blood Culture - Preliminary Blood SPECIMEN COLLECTED A&P Assessment and plan (1) Cardiorenal syndrome: (2) Hyponatremia: (3) Cirrhosis: (4) Hyperbilirubinemia: (5) Umbilical hernia: (6) SBP (spontaneous bacterial peritonitis): (7) Acute kidney injury: (8) Chest pain: (9) Anemia: (10) Metabolic acidosis: (11) Dehydration: Plan Nausea, vomiting, abdominal pain -History of abdominal hernia repair, recurrent ascites, SBP -Zofran and Reglan for nausea control -Serial abdominal exams -IV fluids -Lactic acid within normal limits -Advance diet as tolerated Metabolic acidosis -Likely from LAQUITA, dehydration -IV fluids History of SBP -Will order paracentesis -Paracentesis studies ordered - blood cultures -CT abdomen pelvis shows cirrhosis with diffuse ascites Fatigue, malaise -Respiratory viral panel no acute findings -Stool studies Hyponatremia, 129 -History of hypovolemic hyponatremia -Serum sodium fluctuates between 1 22-1 33 -Gentle IV hydration at 50 cc an hour -Monitor serum sodium -Neurochecks, no stroke scale, aspiration precautions, seizure precautions Acute on chronic thrombocytopenia, monitor Chest pain -Serial EKGs, serial troponins, telemetry monitoring LAQUITA on CKD -Component of hepatorenal syndrome -Likely component of dehydration -IV fluids History of anemia, requiring PRBC -Hold Lovenox for DVT prophylaxis Full code S CDs for DVT prophylaxis Attestations 2 Medical Necessity Statement*: Patient requires hospitalization for nausea, vomiting, abdominal distention hyponatremia Diagnoses Cardiorenal syndrome I13.10 Hyponatremia E87.1 Cirrhosis K74.60 Hyperbilirubinemia E80.6 Umbilical hernia K42.9 SBP (spontaneous bacterial peritonitis) K65.2 Acute kidney injury N17.9 Chest pain R07.9 Anemia D64.9 Metabolic acidosis E87.20 Dehydration E86.0
[2024-03-16] MEDS: cefTRIAXone 2,000 mg SDV 2000 MG IVP (20:26)
[2024-03-17] VITALS (8 sets, daily range): BP systolic 112–118; BP diastolic 63–73; PULSE 82–112; RESP 14–16; TEMP 36.3–36.8; O2SAT 95–100
[2024-03-17 03:57] LABS: Basophils # 0.1 10^3/uL (0.0-0.1); Basophils % 0.7 %; Eosinophils # 0.2 10^3/uL (0.0-0.8); Eosinophils % 3.6 %; Hematocrit 25.1 % (37-53); Lymphocytes # 0.4 10^3/uL (0.8-4.8); Lymphocytes % 6.3 %; Mean Corpuscular HGB Conc 35.1 g/dL (30-55); Mean Corpuscular Hemoglobin 35.3 pg (27-33); Mean Corpuscular Volume 100.8 fl (82-101); Mean Platelet Volume 10.6 fL (7.4-10.4); Monocytes % 14.9 %; Neutrophils # 4.97 10^3/uL (1.8-7.7); Neutrophils % 74.1 %; Nucleated Red Blood Cells % 0 %; Platelet Count 90 10^3/cmm (157-399); Red Blood Count 2.49 10^6/uL (3.85-5.65); Red Cell Distribution Width 22.5 % (12.1-15.1); White Blood Count 6.71 10^3/uL (3.29-11.43)
[2024-03-17 04:15] LABS: INR 1.17 (0.8-1.2)
[2024-03-17 04:23] LABS: Alanine Aminotransferase 37 U/L (0-41); Alkaline Phosphatase 151 U/L (40-130); Anion Gap 19.1 (5-19); Aspartate Amino Transferase 59 U/L (0-40); Blood Urea Nitrogen 37 mg/dL (6-20); Calcium 9.2 mg/dL (8.5-10.5); Carbon Dioxide 19 mmol/L (22-29); Chloride 96 mmol/L (98-107); Creatinine Clr Calc Pharmacy 40.4683; Globulin 1.9 g/dL (1.3-4.6); Glomerular Filtration Rate 33.7 mL/min (90-130); Glucose 112 mg/dL (65-115); Osmolality Calculated 279 mOsm/kg (285-295); Potassium 4.1 mmol/L (3.5-5.1); Sodium 130 mmol/L (136-145); Total Bilirubin 2.3 mg/dL (0.15-1.2); Total Protein 5.9 g/dL (6.6-8.7)
[2024-03-17] MEDS: metoclopramide 5 mg/mL SDV 2 mL IVP (05:11)
[2024-03-17] MEDS: morphine 4 mg/mL SDV 1 mL 1 MG IVP ×2 (05:11→10:36)
--- NOTE | 2024-03-17 08:22 | US_ITS ---
WS: [id number] ULTRASOUND-GUIDED THERAPEUTIC AND DIAGNOSTIC PARACENTESIS Procedure, risks, and complications have been explained to the patient. Consent is obtained. Utilizing aseptic technique and 1% buffered lidocaine, a small dermatome was made through which a 5 F rench Yueh catheter was inserted. Approximately 9000 ml of clear peritoneal fluid was obtained witho ut difficulty. No complications encountered. US/US paracentesis abd w [id number] IMPRESSION: Uncomplicated paracentesis yielding 9000 ml of peritoneal fluid.
[2024-03-17] MEDS: allopurinol 300 mg Tablet PO (10:36)
[2024-03-17] MEDS: pantoprazole DR 40 mg Tablet PO (10:36)
[2024-03-17] MEDS: rifaximin 200 mg Tablet 600 MG PO (10:36)
[2024-03-17] MEDS: midodrine 5 mg TABLET 10 MG PO ×2 (10:36→14:57)
[2024-03-17] MEDS: sucralfate 1 gm Tablet PO (10:36)
[2024-03-17] MEDS: ondansetron 2 mg/ML SDV 2 mL 4 MG IVP ×2 (10:36→18:08)
--- NOTE | 2024-03-17 11:19 | P.DS_ITS ---
Discharge Providers Date of Admission: 03/15/24 21:16 Date of Discharge: March 17, 2024 Attending Provider at Admission: Fortino Wagoner MD Attending Provider at Discharge: Fortino Wagoner MD Primary Care Provider: Alia Sanchez MD Diagnoses at Discharge Discharge Diagnosis (1) Cardiorenal syndrome: Status: Acute (2) Hyponatremia: Status: Resolved (3) Cirrhosis: Status: Resolved (4) Hyperbilirubinemia: Status: Acute (5) Umbilical hernia: Status: Acute (6) SBP (spontaneous bacterial peritonitis): Status: Resolved (7) Acute kidney injury: Status: Resolved (8) Chest pain: Status: Resolved (9) Anemia: Status: Resolved (10) Metabolic acidosis: Status: Resolved (11) Dehydration: Status: Resolved Reason for Visit Reason for Visit: Chest pain, n/v Hospital Course Hospital Course Chase Rivero is a 48 year old male with a past medical history of end-stage liver disease currently on liver transplant list, CKD, hepatorenal syndrome, plans to be on kidney transplant list, history of recurrent ascites, recurrent paracentesis, hernia repair, acute on chronic anemia requiring transfusion, chronic hypotension requiring midodrine, history of hyponatremia, who presents [facility] for fatigue, malaise, chest pain. Patient tells me that he has been feeling well for the last few days, his has also been sick, fatigue, malaise, also reports nonspecific abdominal pain, diarrhea. Denies any hemoptysis, no hematemesis, no bloody or black stools, no bloody diarrhea. He also reports episodes of nausea and vomiting. He had chest pain this morning, nonradiating, no nausea, no vomiting, no diaphoresis. Patient was admitted to [facility] for nausea, vomiting, abdominal pain with hyponatremia, with metabolic acidosis, he was admitted to received IV fluids, overall clinically improved, nausea has resolved, tolerating p.o. intake. Due to recurrent ascites, had a paracentesis as inpatient, tolerated procedure well. Physical Exam Const: COMMON NORMALS: no acute distress and patient oriented x3 Resp: COMMON NORMALS: normal respiratory effort, No retractions, No use of accessory muscles and clear to auscultation bilaterally AUSCULTATION: clear to auscultation bilaterally Cardio: COMMON NORMALS: regular rate, regular rhythm, S1 normal heart sound present and S2 normal heart sound present RATE: regular rate RHYTHM: regular rhythm HEART SOUNDS: S1 normal heart sound present and S2 normal heart sound present GI: COMMON NORMALS: Normal to inspection, nondistended, normoactive bowel sounds present and non-tender Extremity: COMMON NORMALS: no pedal edema Neuro: COMMON NORMALS: patient oriented x3 Psych: COMMON NORMALS: mental status grossly normal Discharge Data Studies Completed and Pending Completed Studies During Hospitalization Category Date Time Status CT abdomen pelvis wo con [id number] Stat Cat Scan 03/15/24 17:49 Completed XR chest 1V portable [id number] Stat Exams 03/15/24 15:50 Completed Pending at discharge Category Date Time Status Amylase, Peritoneal Fluid Routine Lab 03/15/24 21:16 Ordered Amylase, Pleural Fluid Routine Lab 03/15/24 21:16 Ordered Albumin Body Fluid Routine Lab 03/15/24 21:16 Ordered Anaerobic Culture Routine Lab 03/15/24 21:16 Ordered Blood Culture Routine Lab 03/15/24 22:40 Results Body Fluid Analysis Routine Lab 03/15/24 21:16 Ordered Body Fluid Culture & GS Routine Lab 03/15/24 21:16 Ordered Body Fluid Specific [place] Routine Lab 03/15/24 21:16 Ordered Cholesterol Body Fluid Routine Lab 03/15/24 21:16 Ordered Complete Blood Count w/Auto AM LABS Lab 03/18/24 04:00 Ordered Comprehensive Metabolic Panel AM LABS Lab 03/18/24 04:00 Ordered Cystatin C w/GFR Routine Lab 03/16/24 02:51 Received Cyto Order Verification Routine Lab 03/15/24 21:16 Ordered Fluid Alkaline Phos. Routine Lab 03/15/24 21:16 Ordered Glucose Body Fluid Routine Lab 03/15/24 21:16 Ordered LDH Body Fluid Routine Lab 03/15/24 21:16 Ordered Mycobacteria, Culture w/Fluor Routine Lab 03/15/24 21:16 Ordered Prothrombin Time INR AM LABS Lab 03/18/24 04:00 Ordered Prothrombin Time INR AM LABS Lab 03/19/24 04:00 Ordered Sputum Culture and Gram Stain Stat Lab 03/15/24 17:44 Uncollected Total Protein Body Fluid Routine Lab 03/15/24 21:16 Ordered Triglycerides Body Fluid Routine Lab 03/15/24 21:16 Ordered Uric Acid Body Fluid Routine Lab 03/15/24 21:16 Ordered pH Body Fluid Routine Lab 03/15/24 21:16 Ordered [place]acentesis [place]d w [id number] Routine Ultrasound 03/17/24 08:22 Taken Radiology Impressions Chest X-Ray 03/15/24 15:50 IMPRESSION: No acute cardiopulmonary abnormality. Abdomen/Pelvis CT 03/15/24 17:49 IMPRESSION: Cirrhosis with diffuse ascites. Consider MRI of the liver. Laboratory Results WBC 6.71 10^3/uL (3.29-11.43) 03/17/24 02:43 RBC 2.49 10^6/uL (3.85-5.65) L 03/17/24 02:43 Hgb 8.80 g/dL (11.27-16.99) L 03/17/24 02:43 Hct 25.1 % (37-53) L 03/17/24 02:43 MCV 100.8 fl (82-101) 03/17/24 02:43 MCH 35.3 pg (27-33) H 03/17/24 02:43 MCHC 35.1 g/dL (30-55) 03/17/24 02:43 RDW 22.5 % (12.1-15.1) H 03/17/24 02:43 Plt Count 90 10^3/cmm (157-399) L 03/17/24 02:43 MPV 10.6 fL (7.4-10.4) H 03/17/24 02:43 Neut % (Auto) 74.1 % 03/17/24 02:43 Lymph % (Auto) 6.3 % 03/17/24 02:43 [place] % (Auto) 14.9 % 03/17/24 02:43 Eos % (Auto) 3.6 % 03/17/24 02:43 Baso % (Auto) 0.7 % 03/17/24 02:43 Neut # (Auto) 4.97 10^3/uL (1.8-7.7) 03/17/24 02:43 Lymph # (Auto) 0.4 10^3/uL (0.8-4.8) L 03/17/24 02:43 [place] # (Auto) 1.0 10^3/uL (0.2-0.9) H 03/17/24 02:43 Eos # (Auto) 0.2 10^3/uL (0.0-0.8) 03/17/24 02:43 Baso # (Auto) 0.1 10^3/uL (0.0-0.1) 03/17/24 02:43 Nucleated RBC % (auto) 0 % 03/17/24 02:43 Nucleated RBCs # 0.0 /100WBC 03/17/24 02:43 PT 15.70 SECONDS (12.1-14.9) H 03/17/24 02:43 INR 1.17 (0.8-1.2) 03/17/24 02:43 APTT 33.9 SECONDS (23.9-36.7) 03/15/24 16:22 Sodium 130 mmol/L (136-145) L 03/17/24 02:43 Potassium 4.1 mmol/L (3.5-5.1) 03/17/24 02:43 Chloride 96 mmol/L (98-107) L 03/17/24 02:43 Carbon Dioxide 19 mmol/L (22-29) L 03/17/24 02:43 Anion Gap 19.1 (5-19) H 03/17/24 02:43 BUN 37 mg/dL (6-20) H 03/17/24 02:43 Creatinine 2.1 mg/dL (0.7-1.2) H 03/17/24 02:43 GFR Calculation 33.7 mL/min (90-130) L 03/17/24 02:43 Glucose 112 mg/dL (65-115) 03/17/24 02:43 Calculated Osmolality 279 mOsm/kg (285-295) L 03/17/24 02:43 Lactic Acid 1.8 mmol/L (0.5-2.2) 03/15/24 16:22 Calcium 9.2 mg/dL (8.5-10.5) 03/17/24 02:43 Total Bilirubin 2.3 mg/dL (0.15-1.2) H 03/17/24 02:43 AST 59 U/L (0-40) H 03/17/24 02:43 ALT 37 U/L (0-41) 03/17/24 02:43 Alkaline Phosphatase 151 U/L (40-130) H 03/17/24 02:43 Ammonia 36 umol/L (16-60) 03/15/24 16:22 Troponin T Baseline 22 ng/L (0-15) H 03/15/24 16:22 Troponin T 120 Minute 20.48 ng/L (0-15) H 03/15/24 18:30 Delta Troponin T -1.52 ABS# (0-10) L 03/15/24 18:30 Troponin T Hi Sens 6Hr 20.50 ng/L (0-15) H 03/15/24 22:40 Troponin T Hi Sens 6Hr Delta -1.50 ng/L (0-12) L 03/15/24 22:40 C-Reactive Protein 8.1 mg/L (0.0-4.9) H 03/15/24 16:22 Total Protein 5.9 g/dL (6.6-8.7) L 03/17/24 02:43 Albumin 4.0 g/dL (3.5-5.2) 03/17/24 02:43 Globulin 1.9 g/dL (1.3-4.6) 03/17/24 02:43 Procalcitonin 0.44 ng/mL (0-0.5) 03/15/24 16:22 TSH 4.63 uIU/mL (0.27-4.20) H 03/15/24 22:40 Urine Color Yellow (Yellow) 03/15/24 16:51 Urine Appearance Clear (CLEAR) 03/15/24 16:51 Urine pH 5.5 (5-7) 03/15/24 16:51 Ur Specific [place] 1.016 (1.005-1.030) 03/15/24 16:51 Urine Protein Negative (Negative) 03/15/24 16:51 Urine Glucose (UA) Negative (Normal) 03/15/24 16:51 Urine Ketones Negative (Negative) 03/15/24 16:51 Urine Blood Negative (Negative) 03/15/24 16:51 Urine Nitrate Negative (Negative) 03/15/24 16:51 Urine Bilirubin Negative (Negative) 03/15/24 16:51 Urine Urobilinogen 0.2 mg/dL (Negative) 03/15/24 16:51 Ur Leukocyte Esterase Negative (Negative) 03/15/24 16:51 Urine RBC 0-2 /hpf (0-2) 03/15/24 16:51 Urine WBC 0-5 /hpf (0-5) 03/15/24 16:51 Ur Squamous Epith Cells 0-5 /hpf (0-5) 03/15/24 16:51 Amorphous Sediment Not Reportable 03/15/24 16:51 Urine Bacteria None seen /hpf (NONE) 03/15/24 16:51 Hyaline Casts 2.46 /lpf 03/15/24 16:51 C. difficile (PCR) Negative (Negative) 03/16/24 09:30 Coronavirus (PCR) Negative (Negative) 03/15/24 18:30 Influenza A (PCR) Negative (Negative) 03/15/24 18:30 Influenza Type B (PCR) Negative (Negative) 03/15/24 18:30 RSV (PCR) Negative (Negative) 03/15/24 18:30 Vitals Last Vital Signs Temp 97.3 F L 03/17/24 11:16 Pulse 112 H 03/17/24 11:16 Resp 16 03/17/24 11:16 BP 117/73 03/17/24 11:16 Pulse Ox 97 03/17/24 11:16 O2 Del Method Room Air 03/17/24 11:16 Discharge Plan Discharge Patient Disposition: Home Condition: Stable Prescriptions: Continued polyethylene glycol 3350 [Miralax] 17 gram Powder In Packet 17 g PO DAILY PRN (Reason: Constipation) ondansetron HCl 4 mg tablet 4 mg PO Q8H PRN (Reason: Nausea And Vomiting) 30 Days Qty: 30 0RF albuterol sulfate [Ventolin HFA] 90 mcg/actuation HFA aerosol inhaler 2 inh inhalation Q6H PRN (Reason: shortness of breath or wheezing) Qty: 6.7 0RF lactulose [Constulose] 10 gram/15 mL solution 15 ml PO BID sucralfate 1 gram Tablet 1 g PO Q12H 30 Days Qty: 60 0RF pantoprazole 40 mg tablet,delayed release (DR/EC) 40 mg PO Q12H 30 Days Qty: 60 0RF allopurinol 300 mg Tablet 300 mg PO DAILY midodrine 5 mg tablet 10 mg PO TID metoclopramide HCl 5 mg tablet 5 mg PO BID PRN (Reason: Nausea And Vomiting) rifaximin 550 mg Tablet 550 mg PO BID Asmanex Twisthaler 110 mcg/ actuation (30) Aerosol Powdr Breath Activated 2 inh INHALATION DAILY Rx Instructions: administer 1 hour before bedtime tramadol 50 mg tablet 50 mg PO Q8H PRN (Reason: pain) Qty: 10 0RF No Action hydrocodone-acetaminophen 5-325 mg Tablet 0.5 tab PO PRN PRN (Reason: Pain) melatonin 5 mg Tablet,Chewable 5 mg PO DAILY furosemide 20 mg Tablet 20 mg PO DAILY@0800 PRN (Reason: Abdominal Distention) Qty: 20 0RF sodium chloride 1,000 mg Tablet,Soluble 1,000 mg PO BID 14 Days Qty: 28 0RF Discharge Orders: Discharge Order (Routine); Ordered 03/17/24 Ordered By: Fortino Wagoner Referrals: Alia Sanchez MD [Primary Care Provider] - (We have notified your physician's clinic of the need for a follow-up appointment to be scheduled. If you have not heard from them within the next 2 business days, please call them directly. ) Discharge Diet: Cardiac Discharge Activity: Resume usual activity Patient Instructions: Hydrocodone/Acetaminophen (By mouth) (Vicodin, [place]), Dehydration (DC), Acute Kidney Injury (DC), Hyponatremia (DC), Paracentesis (DC), Opioid Safety Activity Restrictions/Additional Instructions: - Your cystatin C are pending -Hemoglobin discharge 8.8 -INR 1.17, PT 15.7 -Creatinine 2.1 GFR 33.7 -Sodium 130 -Please follow-up with the GI team -Follow-up with primary care provider this week -If any fevers or chills go to emergency room Discharge Attestations Time Spent in Discharge Care*: greater than 30 min Status at Discharge: Cognitive status at discharge: cognitively intact , Behavioral status at discharge: cooperative , Quality Metrics Clinical Quality Measures [ No reported AMI, CVA or VTE this stay] Coding Level of Care Code 60429 Total time (in minutes) for Discharge: 45 Diagnoses Cardiorenal syndrome I13.10 Hyponatremia E87.1 Cirrhosis K74.60 Hyperbilirubinemia E80.6 Umbilical hernia K42.9 SBP (spontaneous bacterial peritonitis) K65.2 Acute kidney injury N17.9 Chest pain R07.9 Anemia D64.9 Metabolic acidosis E87.20 Dehydration E86.0
[2024-03-17 13:33] LABS: Cyto Order Verification No Order
[2024-03-17 13:35] LABS: Apprearance, Body Fluid CLOUDY; Color, Body Fluid PALE YELLOW
[2024-03-17 13:37] LABS: Body Fluid Polynuclear #Cells 0.003; Body Fluid WBC 60 /uL; Monocytes # Body Fluid 0.057
[2024-03-17 13:47] LABS: Body Fluid Specific Gravity 1.012; pH Body Fluid 6.5
[2024-03-17 13:48] LABS: Fluid Laterality ASCITES; PATH Referral YES
[2024-03-17 14:06] LABS: Triglycerides Body Fluid 55 mg/dL (0-150)
[2024-03-17 14:07] LABS: Albumin Body Fluid 0.6 g/dL; Cholesterol Body Fluid 13 mg/dL (0-200); Fluid Alkaline Phos. 15 IU/L; LDH Body Fluid 25 U/L; Total Protein Body Fluid 0.7 g/dL; Uric Acid Body Fluid 4 mg/dL
[2024-03-17] MEDS: albumin 50 G/200 ML BAG 60 G IV (14:56)
[2024-03-18 14:10] LABS: Cystatin C 2.42 mg/L (0.52-1.27); Estimated GFR (Cystatin C) 25 (> OR = 60)
[2024-03-22 16:14] LABS: Amylase, Peritoneal Fluid <10 U/L
== END 2024-03-17 18:35 | disposition home or self-care (01) ==
LOC: ER 18:17 → MEDSURG 19:23
PROVIDERS: Admitting Provider Family Medicine; Emergency Provider Family Medicine; PCP Family Medicine; Visit Provider Family Medicine
DX: I13.10 Hypertensive heart and chronic kidney disease without heart failure, with stage 1 through stage 4 chronic kidney disease, or unspecified chronic kidney disease (principal); R11.2 Nausea with vomiting, unspecified; Z79.899 Other long term (current) drug therapy; Z87.891 Personal history of nicotine dependence; R74.01 Elevation of levels of liver transaminase levels; E87.1 Hypo-osmolality and hyponatremia; K70.30 Alcoholic cirrhosis of liver without ascites; K76.7 Hepatorenal syndrome; Z76.82 Awaiting organ transplant status; D64.9 Anemia, unspecified; E80.6 Other disorders of bilirubin metabolism; K42.9 Umbilical hernia without obstruction or gangrene; K65.2 Spontaneous bacterial peritonitis; N17.9 Acute kidney failure, unspecified; E87.20 Acidosis, unspecified; E86.0 Dehydration; D69.6 Thrombocytopenia, unspecified; N18.9 Chronic kidney disease, unspecified; Z11.52 Encounter for screening for COVID-19
CPT/HCPCS: 36415; 49083; 71045; 74176; 80053; 80503; 81001; 82042; 82140; 82150; 82465; 82610; 82945; 83605; 83615; 83986; 84075; 84145; 84157; 84295; 84315; 84443; 84478; 84484; 84560; 85025; 85610; 85730; 86140; 87015; 87040; 87070; 87075; 87116; 87205; 87206; 87493; 87637; 87801; 89050; 93005; 94664; 96365; 96367; 96375; 99285; G0378; J0696; J2270; J2405; J2765; J7030; P9046

== ENCOUNTER 2024-03-22 01:57 | Inpatient (IN) | payer OTHER, SELFPAY ==
[2024-03-22] VITALS (18 sets, daily range): BP systolic 103–131; BP diastolic 63–77; PULSE 88–103; RESP 15–23; TEMP 36.6–37; O2SAT 94–100; BMI 21.2
[2024-03-22 03:43] LABS: Basophils % 0.4 %; Eosinophils # 0.2 10^3/uL (0.0-0.8); Eosinophils % 2.3 %; Hematocrit 28.4 % (37-53); Lymphocytes # 0.4 10^3/uL (0.8-4.8); Lymphocytes % 5.4 %; Mean Corpuscular HGB Conc 35.9 g/dL (30-55); Mean Corpuscular Hemoglobin 35.1 pg (27-33); Mean Corpuscular Volume 97.6 fl (82-101); Mean Platelet Volume 10.7 fL (7.4-10.4); Monocytes % 12.7 %; Neutrophils # 6.27 10^3/uL (1.8-7.7); Neutrophils % 78.7 %; Nucleated Red Blood Cells % 0 %; Platelet Count 117 10^3/cmm (157-399); Red Blood Count 2.91 10^6/uL (3.85-5.65); Red Cell Distribution Width 22.1 % (12.1-15.1); White Blood Count 7.96 10^3/uL (3.29-11.43)
[2024-03-22 03:59] LABS: Alanine Aminotransferase 47 U/L (0-41); Albumin Level 4.8 g/dL (3.5-5.2); Alkaline Phosphatase 187 U/L (40-130); Anion Gap 19.4 (5-19); Aspartate Amino Transferase 69 U/L (0-40); Blood Urea Nitrogen 34 mg/dL (6-20); Calcium 9.5 mg/dL (8.5-10.5); Carbon Dioxide 18 mmol/L (22-29); Chloride 89 mmol/L (98-107); Creatinine Clr Calc Pharmacy 31.1016; Globulin 2.3 g/dL (1.3-4.6); Glomerular Filtration Rate 25.2 mL/min (90-130); Glucose 134 mg/dL (65-115); Osmolality Calculated 266 mOsm/kg (285-295); Potassium 3.4 mmol/L (3.5-5.1); Sodium 123 mmol/L (136-145); Total Bilirubin 3.2 mg/dL (0.15-1.2); Total Protein 7.1 g/dL (6.6-8.7)
--- NOTE | 2024-03-22 04:29 | ED_ITS ---
Documented by User: Nelson Clement DO 03/22/24 04:46 HPI - Weakness 2 General: Chief complaint: Weakness Stated complaint: Weakness,Shakeness Time Seen by Provider: 03/22/24 03:38 History of Present Illness: Patient presents to the ER with complaints of being weak and shaky. Patient said he was just recently discharged from the ER about 4 days ago. Patient is curious about his sodium and thinks it may be low. This has happened to him before. Review of Systems 2 General: Reports: 10 or more systems reviewed and unremarkable except in HPI and below PFSH ED 2 PFSH: Medical History SBP (spontaneous bacterial peritonitis) Acute hepatic failure Abdominal ascites Smoker Colitis Low oxygen saturation Enteropathy Smoking addiction Alcohol use disorder Thrombocytopenia Liver cirrhosis Hematuria Ascites due to alcoholic cirrhosis Abdominal pain 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 History of colon polyps Rectal polyp 10 and 15 cm, cecum biopsy Sigmoid colon polyp Seasonal allergies Splenomegaly Enterocolitis 2016 Surgical History Status post colonoscopy with polypectomy H/O esophagogastroduodenoscopy Vasectomy status H/O left inguinal hernia repair Family History Denies family history of Cancer Social History Smoking and tobacco/nicotine status: former use of tobacco/nicotine Alcohol intake: former Substance/Drug Use: never Lives independently: Yes Housing: House Marital status: 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 Physical Exam 2 Const: COMMON NORMALS: no acute distress, average body habitus, patient oriented x3, no limitations, healthy appearing, alert and well nourished HENMT: COMMON NORMALS: normocephalic, atraumatic, hearing grossly normal bilaterally, external ears normal, Normal external nose present and moist oral mucous membranes HEAD & SCALP: normocephalic and atraumatic NOSE: Normal external nose present EXTERNAL EAR: Yes external ears normal Neck/C-Spine: COMMON NORMALS: no JVD Chest: COMMONS NORMALS: normal inspection of the chest and normal palpation of entire chest wall Resp: COMMON NORMALS: normal respiratory effort, No retractions, No use of accessory muscles and clear to auscultation bilaterally AUSCULTATION: clear to auscultation bilaterally Cardio: COMMON NORMALS: no JVD, regular rate, regular rhythm, S1 normal heart sound present, S2 normal heart sound present, No gallops present (Cardio), No clicks present (Cardio), No murmurs present (Cardio) and No rub (Cardio) R ATE: regular rate RHYTHM: regular rhythm HEART SOUNDS: S1 normal heart sound present and S2 normal heart sound present GI: COMMON NORMALS: Soft to palpation; negative for non-tender PALPATION: Yes Soft to palpation OTHER: Soft mildly distended mildly diffuse tenderness positive bowel sounds all 4 quadrants Neuro: COMMON NORMALS: patient oriented x3 SENSORIUM/ORIENTATION: Yes alert Course 2 Vital Signs: Vital signs: Vital Signs Temperature 98 F 03/22/24 02:04 Pulse Rate 97 03/22/24 08:52 Respiratory Rate 18 03/22/24 11:49 Blood Pressure 112/67 03/22/24 12:06 Pulse Oximetry 97 03/22/24 12:06 Oxygen Delivery Me thod Room Air 03/22/24 12:06 MDM - Weakness Medical Decision Making Since patient was just discharged from the hospital approximately 4 days ago he prefer not to have to go back in the hospital. I discussed this with the patient and with Dr. Cook we will give the patient 1 L bolus of normal saline and recheck to see if his sodium and creatinine improves. If not he may have to be readmitted to the hospital. Medical Records I reviewed the patient's medical records. Lab Data I reviewed the patient's lab results. 03/22/24 03:23 03/22/24 07:02 Laboratory Results WBC 7.96 10^3/uL (3.29-11.43) 03/22/24 03:23 RBC 2.91 10^6/uL (3.85-5.65) L 03/22/24 03:23 Hgb 10.20 g/dL (11.27-16.99) L 03/22/24 03:23 Hct 28.4 % (37-53) L 03/22/24 03:23 MCV 97.6 fl (82-101) 03/22/24 03:23 MCH 35.1 pg (27-33) H 03/22/24 03:23 MCHC 35.9 g/dL (30-55) 03/22/24 03:23 RDW 22.1 % (12.1-15.1) H 03/22/24 03:23 Plt Count 117 10^3/cmm (157-399) L 03/22/24 03:23 MPV 10.7 fL (7.4-10.4) H 03/22/24 03:23 Neut % (Auto) 78.7 % 03/22/24 03:23 Lymph % (Auto) 5.4 % 03/22/24 03:23 [place] % (Auto) 12.7 % 03/22/24 03:23 Eos % (Auto) 2.3 % 03/22/24 03:23 Baso % (Auto) 0.4 % 03/22/24 03:23 Neut # (Auto) 6.27 10^3/uL (1.8-7.7) 03/22/24 03:23 Lymph # (Auto) 0.4 10^3/uL (0.8-4.8) L 03/22/24 03:23 [place] # (Auto) 1.0 10^3/uL (0.2-0.9) H 03/22/24 03:23 Eos # (Auto) 0.2 10^3/uL (0.0-0.8) 03/22/24 03:23 Baso # (Auto) 0.0 10^3/uL (0.0-0.1) 03/22/24 03:23 Nucleated RBC % (auto) 0 % 03/22/24 03:23 Nucleated RBCs # 0.0 /100WBC 03/22/24 03:23 Sodium 124 mmol/L (136-145) L 03/22/24 07:02 Potassium 3.5 mmol/L (3.5-5.1) 03/22/24 07:02 Chloride 92 mmol/L (98-107) L 03/22/24 07:02 Carbon Dioxide 17 mmol/L (22-29) L 03/22/24 07:02 Anion Gap 18.5 (5-19) 03/22/24 07:02 BUN 34 mg/dL (6-20) H 03/22/24 07:02 Creatinine 2.6 mg/dL (0.7-1.2) H 03/22/24 07:02 GFR Calculation 26.4 mL/min (90-130) L 03/22/24 07:02 Glucose 105 mg/dL (65-115) 03/22/24 07:02 Calculated Osmolality 266 mOsm/kg (285-295) L 03/22/24 07:02 Calcium 8.6 mg/dL (8.5-10.5) 03/22/24 07:02 Magnesium 1.9 mg/dL (1.7-2.3) 03/22/24 07:02 Total Bilirubin 2.8 mg/dL (0.15-1.2) H 03/22/24 07:02 AST 58 U/L (0-40) H 03/22/24 07:02 ALT 39 U/L (0-41) 03/22/24 07:02 Alkaline Phosphatase 155 U/L (40-130) H 03/22/24 07:02 Total Protein 6.1 g/dL (6.6-8.7) L 03/22/24 07:02 Albumin 4.1 g/dL (3.5-5.2) 03/22/24 07:02 Globulin 2.0 g/dL (1.3-4.6) 03/22/24 07:02 Urine Color Yellow (Yellow) 03/22/24 04:22 Urine Appearance Clear (CLEAR) 03/22/24 04:22 Urine pH 5.5 (5-7) 03/22/24 04:22 Ur Specific [place] 1.017 (1.005-1.030) 03/22/24 04:22 Urine Protein Trace (Negative) A 03/22/24 04:22 Urine Glucose (UA) Negative (Normal) 03/22/24 04:22 Urine Ketones Negative (Negative) 03/22/24 04:22 Urine Blood Negative (Negative) 03/22/24 04:22 Urine Nitrate Negative (Negative) 03/22/24 04:22 Urine Bilirubin Negative (Negative) 03/22/24 04:22 Urine Urobilinogen 0.2 mg/dL (Negative) 03/22/24 04:22 Ur Leukocyte Esterase Negative (Negative) 03/22/24 04:22 Urine RBC 0-2 /hpf (0-2) 03/22/24 04:22 Urine WBC 0-5 /hpf (0-5) 03/22/24 04:22 Ur Squamous Epith Cells 0-5 /hpf (0-5) 03/22/24 04:22 Amorphous Sediment Not Reportable 03/22/24 04:22 Urine Bacteria None seen /hpf (NONE) 03/22/24 04:22 Hyaline Casts 4.95 /lpf 03/22/24 04:22 Coronavirus (PCR) Negative (Negative) 03/22/24 03:39 Influenza A (PCR) Negative (Negative) 03/22/24 03:39 Influenza Type B (PCR) Negative (Negative) 03/22/24 03:39 RSV (PCR) Negative (Negative) 03/22/24 03:39 Discharge Plan Discharge Patient Disposition: Admitted As Inpatient Clinical Impression: Acute hyponatremia, Weakness Condition: Stable Coding Level of Care Code ED Tipple Boss for Chg Fwd Related Data Home Medications Medication Instructions Recorded Confirmed allopurinol 300 mg tablet 300 mg PO DAILY 06/29/23 03/22/24 polyethylene glycol 3350 17 gram 17 g PO DAILY PRN Constipation 12/29/23 03/22/24 oral powder packet (Miralax) mometasone 110 mcg/actuation(30 2 inh inhalation DAILY 01/31/24 03/22/24 doses) breath activated powder inhaler (Asmanex Twisthaler) metoclopramide HCl 5 mg tablet 5 mg PO BID PRN Nausea And Vomiting 02/06/24 03/22/24 midodrine 5 mg tablet 10 mg PO TID 02/06/24 03/22/24 rifaximin 550 mg tablet 550 mg PO BID 02/06/24 03/22/24 lactulose 10 gram/15 mL oral 15 ml PO BID 02/29/24 03/22/24 solution (Constulose) hydrocodone 5 mg-acetaminophen 325 0.5 tab PO PRN PRN Pain 03/22/24 03/22/24 mg tablet melatonin 5 mg chewable tablet 5 mg PO DAILY sleep 03/22/24 03/22/24 Previous Rx's Medication Instructions Recorded ondansetron HCl 4 mg tablet 4 mg PO Q8H PRN Nausea And 01/02/24 Vomiting 30 days #30 tabs albuterol sulfate 90 mcg/actuation 2 inh inhalation Q6H PRN shortness 01/08/24 aerosol inhaler (Ventolin HFA) of breath or wheezing #6.7 grams tramadol 50 mg tablet 50 mg PO Q8H PRN pain #10 tabs 12/14/24 pantoprazole 40 mg tablet,delayed 40 mg PO Q12H 30 days #60 tabs 03/04/24 release sucralfate 1 gram tablet 1 g PO Q12H 30 days #60 tabs 03/04/24 Allergies Allergy/AdvReac Type Severity Reaction Status Date / Time No Known Allergies Allergy Verified 03/21/24 08:11 Documented by User: Noris Alvarado MD 03/22/24 12:35 HPI - Weakness 2 General: Chief complaint: Weakness Stated complaint: Weakness,Shakeness Time Seen by Provider: 03/22/24 03:38 PFSH ED 2 PFSH: Medical History SBP (spontaneous bacterial peritonitis) Acute hepatic failure Abdominal ascites Smoker Colitis Low oxygen saturation Enteropathy Smoking addiction Alcohol use disorder Thrombocytopenia Liver cirrhosis Hematuria Ascites due to alcoholic cirrhosis Abdominal pain 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 History of colon polyps Rectal polyp 10 and 15 cm, cecum biopsy Sigmoid colon polyp Seasonal allergies Splenomegaly Enterocolitis 2016 Surgical History Status post colonoscopy with polypectomy H/O esophagogastroduodenoscopy Vasectomy status H/O left inguinal hernia repair Family History Denies family history of Cancer Social History Smoking and tobacco/nicotine status: former use of tobacco/nicotine Alcohol intake: former Substance/Drug Use: never Lives independently: Yes Housing: House 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 I discussed this with the patient and with Dr. Cook we will give the patient 1 L bolus of normal saline and recheck to see if his sodium and creatinine improves. If not he may have to be readmitted to the hospital. Patient's been given 1 L of normal saline. Repeat labs have been obtained. He started his on the increase from 123-124. Patient continues to feel very weak. Will discuss with the hospitalist for admission. Discussed with Dr. Avelar who agrees with admission Lab Data 03/22/24 03:23 03/22/24 07:02 Laboratory Results WBC 7.96 10^3/uL (3.29-11.43) 03/22/24 03:23 RBC 2.91 10^6/uL (3.85-5.65) L 03/22/24 03:23 Hgb 10.20 g/dL (11.27-16.99) L 03/22/24 03:23 Hct 28.4 % (37-53) L 03/22/24 03:23 MCV 97.6 fl (82-101) 03/22/24 03:23 MCH 35.1 pg (27-33) H 03/22/24 03:23 MCHC 35.9 g/dL (30-55) 03/22/24 03:23 RDW 22.1 % (12.1-15.1) H 03/22/24 03:23 Plt Count 117 10^3/cmm (157-399) L 03/22/24 03:23 MPV 10.7 fL (7.4-10.4) H 03/22/24 03:23 Neut % (Auto) 78.7 % 03/22/24 03:23 Lymph % (Auto) 5.4 % 03/22/24 03:23 [place] % (Auto) 12.7 % 03/22/24 03:23 Eos % (Auto) 2.3 % 03/22/24 03:23 Baso % (Auto) 0.4 % 03/22/24 03:23 Neut # (Auto) 6.27 10^3/uL (1.8-7.7) 03/22/24 03:23 Lymph # (Auto) 0.4 10^3/uL (0.8-4.8) L 03/22/24 03:23 [place] # (Auto) 1.0 10^3/uL (0.2-0.9) H 03/22/24 03:23 Eos # (Auto) 0.2 10^3/uL (0.0-0.8) 03/22/24 03:23 Baso # (Auto) 0.0 10^3/uL (0.0-0.1) 03/22/24 03:23 Nucleated RBC % (auto) 0 % 03/22/24 03:23 Nucleated RBCs # 0.0 /100WBC 03/22/24 03:23 Sodium 124 mmol/L (136-145) L 03/22/24 07:02 Potassium 3.5 mmol/L (3.5-5.1) 03/22/24 07:02 Chloride 92 mmol/L (98-107) L 03/22/24 07:02 Carbon Dioxide 17 mmol/L (22-29) L 03/22/24 07:02 Anion Gap 18.5 (5-19) 03/22/24 07:02 BUN 34 mg/dL (6-20) H 03/22/24 07:02 Creatinine 2.6 mg/dL (0.7-1.2) H 03/22/24 07:02 GFR Calculation 26.4 mL/min (90-130) L 03/22/24 07:02 Glucose 105 mg/dL (65-115) 03/22/24 07:02 Calculated Osmolality 266 mOsm/kg (285-295) L 03/22/24 07:02 Calcium 8.6 mg/dL (8.5-10.5) 03/22/24 07:02 Magnesium 1.9 mg/dL (1.7-2.3) 03/22/24 07:02 Total Bilirubin 2.8 mg/dL (0.15-1.2) H 03/22/24 07:02 AST 58 U/L (0-40) H 03/22/24 07:02 ALT 39 U/L (0-41) 03/22/24 07:02 Alkaline Phosphatase 155 U/L (40-130) H 03/22/24 07:02 Total Protein 6.1 g/dL (6.6-8.7) L 03/22/24 07:02 Albumin 4.1 g/dL (3.5-5.2) 03/22/24 07:02 Globulin 2.0 g/dL (1.3-4.6) 03/22/24 07:02 Urine Color Yellow (Yellow) 03/22/24 04:22 Urine Appearance Clear (CLEAR) 03/22/24 04:22 Urine pH 5.5 (5-7) 03/22/24 04:22 Ur Specific [place] 1.017 (1.005-1.030) 03/22/24 04:22 Urine Protein Trace (Negative) A 03/22/24 04:22 Urine Glucose (UA) Negative (Normal) 03/22/24 04:22 Urine Ketones Negative (Negative) 03/22/24 04:22 Urine Blood Negative (Negative) 03/22/24 04:22 Urine Nitrate Negative (Negative) 03/22/24 04:22 Urine Bilirubin Negative (Negative) 03/22/24 04:22 Urine Urobilinogen 0.2 mg/dL (Negative) 03/22/24 04:22 Ur Leukocyte Esterase Negative (Negative) 03/22/24 04:22 Urine RBC 0-2 /hpf (0-2) 03/22/24 04:22 Urine WBC 0-5 /hpf (0-5) 03/22/24 04:22 Ur Squamous Epith Cells 0-5 /hpf (0-5) 03/22/24 04:22 Amorphous Sediment Not Reportable 03/22/24 04:22 Urine Bacteria None seen /hpf (NONE) 03/22/24 04:22 Hyaline Casts 4.95 /lpf 03/22/24 04:22 Coronavirus (PCR) Negative (Negative) 03/22/24 03:39 Influenza A (PCR) Negative (Negative) 03/22/24 03:39 Influenza Type B (PCR) Negative (Negative) 03/22/24 03:39 RSV (PCR) Negative (Negative) 03/22/24 03:39 No radiology studies performed this visit Discharge Plan Discharge Patient Disposition: Admitted As Inpatient Clinical Impression: Acute hyponatremia, Weakness Condition: Stable Coding Level of Care Code ED Tipple Boss for [place] Fwd Related Data Home Medications Medication Instructions Recorded Confirmed allopurinol 300 mg tablet 300 mg PO DAILY 06/29/23 03/22/24 polyethylene glycol 3350 17 gram 17 g PO DAILY PRN Constipation 12/29/23 03/22/24 oral powder packet (Miralax) mometasone 110 mcg/actuation(30 2 inh inhalation DAILY 01/31/24 03/22/24 doses) breath activated powder inhaler (Asmanex Twisthaler) metoclopramide HCl 5 mg tablet 5 mg PO BID PRN Nausea And Vomiting 02/06/24 03/22/24 midodrine 5 mg tablet 10 mg PO TID 02/06/24 03/22/24 rifaximin 550 mg tablet 550 mg PO BID 02/06/24 03/22/24 lactulose 10 gram/15 mL oral 15 ml PO BID 02/29/24 03/22/24 solution (Constulose) hydrocodone 5 mg-acetaminophen 325 0.5 tab PO PRN PRN Pain 03/22/24 03/22/24 mg tablet melatonin 5 mg chewable tablet 5 mg PO DAILY sleep 03/22/24 03/22/24 Previous Rx's Medication Instructions Recorded ondansetron HCl 4 mg tablet 4 mg PO Q8H PRN Nausea And 01/02/24 Vomiting 30 days #30 tabs albuterol sulfate 90 mcg/actuation 2 inh inhalation Q6H PRN shortness 01/08/24 aerosol inhaler (Ventolin HFA) of breath or wheezing #6.7 grams tramadol 50 mg tablet 50 mg PO Q8H PRN pain #10 tabs 02/02/24 pantoprazole 40 mg tablet,delayed 40 mg PO Q12H 30 days #60 tabs 03/04/24 release sucralfate 1 gram tablet 1 g PO Q12H 30 days #60 tabs 03/04/24 Allergies Allergy/AdvReac Type Severity Reaction Status Date / Time No Known Allergies Allergy Verified 03/21/24 08:11
[2024-03-22 04:31] LABS: Bilirubin Urine Negative (Negative); Blood Urine Negative (Negative); Glucose Urine UA Negative (Normal); Ketones Urine Negative (Negative); Leukocyte Esterase Urine Negative (Negative); Nitrate Urine Negative (Negative); Protein Urine Trace (Negative); Specific Gravity, Urine 1.017 (1.005-1.030); Urine Appearance Clear (CLEAR); Urine Color Yellow (Yellow); Urobilinogen Urine 0.2 mg/dL (Negative); pH Urine 5.5 (5-7)
[2024-03-22 04:36] LABS: Add Urine Microscopic? YES; Bacteria Urine None Seen /hpf; Hyaline Casts Urine 4.95 /lpf; RBC Urine 0-2 /hpf (0-2); Squamous Epithelial Cell Urine 0-5 /hpf (0-5); WBC Urine 0-5 /hpf (0-5)
[2024-03-22 04:47] LABS: Covid PCR NEGATIVE (Negative); Influenza A NEGATIVE (Negative); Influenza B NEGATIVE (Negative); Respiratory Syncytial Virus Ce NEGATIVE (Negative)
[2024-03-22] MEDS: sodium chloride 0.9% 1,000 ML 999 ML IV (05:01)
[2024-03-22 07:27] LABS: Alanine Aminotransferase 39 U/L (0-41); Albumin Level 4.1 g/dL (3.5-5.2); Alkaline Phosphatase 155 U/L (40-130); Anion Gap 18.5 (5-19); Aspartate Amino Transferase 58 U/L (0-40); Blood Urea Nitrogen 34 mg/dL (6-20); Calcium 8.6 mg/dL (8.5-10.5); Carbon Dioxide 17 mmol/L (22-29); Chloride 92 mmol/L (98-107); Glomerular Filtration Rate 26.4 mL/min (90-130); Glucose 105 mg/dL (65-115); Magnesium 1.9 mg/dL (1.7-2.3); Osmolality Calculated 266 mOsm/kg (285-295); Potassium 3.5 mmol/L (3.5-5.1); Sodium 124 mmol/L (136-145); Total Bilirubin 2.8 mg/dL (0.15-1.2); Total Protein 6.1 g/dL (6.6-8.7)
[2024-03-22 07:28] LABS: Creatinine Clr Calc Pharmacy 32.2978
[2024-03-22] MEDS: TRAMadol 50 mg Tablet PO (11:47)
[2024-03-22] MEDS: heparin 5,000 unit/mL INJ 1 mL 5000 UNIT SUBCUT (12:03)
[2024-03-22] MEDS: sodium chloride 0.9% 1,000 ML 55 ML IV (12:04)
[2024-03-22] MEDS: sucralfate 1 gm Tablet PO ×2 (12:04→23:34)
[2024-03-22] MEDS: pantoprazole DR 40 mg Tablet PO ×2 (12:04→23:34)
[2024-03-22] MEDS: rifaximin 200 mg Tablet 600 MG PO ×2 (12:16→18:43)
[2024-03-22 12:46] LABS: Procalcitonin 0.35 ng/mL (0-0.5); Thyroid Stimulating Hormone 2.32 uIU/mL (0.27-4.20)
[2024-03-22 12:51] LABS: Urine Random Sodium 10 mmol/L
[2024-03-22] MEDS: midodrine 5 mg TABLET 10 MG PO ×2 (16:08→21:15)
--- NOTE | 2024-03-22 17:04 | P.HP_ITS ---
Providers/Chief Complaint 2 Admitting Physician: Kassandra Avelar MD Primary Care Provider: Alia Sanchze MD Chief Complaint: Weakness,Shakeness History of Present Illness Chase Rivero is a 48 year old male with a past medical history of end-stage liver disease currently on liver transplant list, CKD, hepatorenal syndrome, plans to be on kidney transplant list, history of recurrent ascites, recurrent paracentesis, hernia repair, acute on chronic anemia requiring transfusion, chronic hypotension requiring midodrine, history of hyponatremia, who presents [facility] for fatigue malaise. He states that on and off he has been feeling weak and sick with nausea. He has not had any vomiting today however has vomited in the last 2 days. He was recently discharged 3 days ago for similar complaints. Medications/Allergies Home Medications Medication Instructions Recorded Confirmed Last Taken Type allopurinol 300 mg tablet 300 mg PO DAILY 06/29/23 03/22/24 03/21/24 History polyethylene glycol 3350 17 gram 17 g PO DAILY PRN Constipation 12/29/23 03/22/24 03/14/24 History oral powder packet (Miralax) ondansetron HCl 4 mg tablet 4 mg PO Q8H PRN Nausea And 01/02/24 03/22/24 03/09/24 Rx Vomiting 30 days #30 tabs albuterol sulfate 90 mcg/actuation 2 inh inhalation Q6H PRN shortness 01/08/24 03/22/24 03/14/24 Rx aerosol inhaler (Ventolin HFA) of breath or wheezing #6.7 grams mometasone 110 mcg/actuation(30 2 inh inhalation DAILY 01/31/24 03/22/24 03/21/24 History doses) breath activated powder inhaler (Asmanex Twisthaler) tramadol 50 mg tablet 50 mg PO Q8H PRN pain #10 tabs 02/02/24 03/22/24 03/09/24 Rx metoclopramide HCl 5 mg tablet 5 mg PO BID PRN Nausea And Vomiting 02/06/24 03/22/24 03/10/24 History midodrine 5 mg tablet 10 mg PO TID 02/06/24 03/22/24 03/21/24 19:00 History rifaximin 550 mg tablet 550 mg PO BID 02/06/24 03/22/24 03/21/24 20:00 History lactulose 10 gram/15 mL oral 15 ml PO BID 02/29/24 03/22/24 03/17/24 History solution (Constulose) pantoprazole 40 mg tablet,delayed 40 mg PO Q12H 30 days #60 tabs 03/04/24 03/22/24 03/21/24 Rx release sucralfate 1 gram tablet 1 g PO Q12H 30 days #60 tabs 03/04/24 03/22/24 03/21/24 19:00 Rx hydrocodone 5 mg-acetaminophen 325 0.5 tab PO PRN PRN Pain 03/22/24 03/22/24 03/21/24 21:00 History mg tablet melatonin 5 mg chewable tablet 5 mg PO DAILY sleep 03/22/24 03/22/24 Unknown History Allergies Allergy/AdvReac Type Severity Reaction Status Date / Time No Known Allergies Allergy Verified 03/21/24 08:11 PFSH Acute 2 PFSH: Medical History SBP (spontaneous bacterial peritonitis) Acute hepatic failure Abdominal ascites Smoker Colitis Low oxygen saturation Enteropathy Smoking addiction Alcohol use disorder Thrombocytopenia Liver cirrhosis Hematuria Ascites due to alcoholic cirrhosis Abdominal pain 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 History of colon polyps Rectal polyp 10 and 15 cm, cecum biopsy Sigmoid colon polyp Seasonal allergies Splenomegaly Enterocolitis 2016 Surgical History Status post colonoscopy with polypectomy H/O esophagogastroduodenoscopy Vasectomy status H/O left inguinal hernia repair Family History Denies family history of Cancer Social History Smoking and tobacco/nicotine status: former use of tobacco/nicotine Alcohol intake: former Substance/Drug Use: never Lives independently: Yes Housing: House 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/I&O/Wt Last Vital Signs Temp 98 F 03/22/24 02:04 Pulse 100 03/22/24 16:14 Resp 18 03/22/24 16:14 BP 125/77 03/22/24 16:14 Pulse Ox 98 03/22/24 16:14 O2 Del Method Room Air 03/22/24 16:14 03/22/24 03/22/24 03/22/24 06:59 14:59 22:59 Intake Total 0 / 0 Balance 0 / 0 Weight last 48 hrs Weight 63.503 kg Physical Exam 2 Const: COMMON NORMALS: no acute distress and patient oriented x3 Resp: COMMON NORMALS: normal respiratory effort, No retractions, No use of accessory muscles and clear to auscultation bilaterally AUSCULTATION: clear to auscultation bilaterally Cardio: COMMON NORMALS: regular rate, regular rhythm, S1 normal heart sound present and S2 normal heart sound present RATE: regular rate RHYTHM: r egular rhythm HEART SOUNDS: S1 normal heart sound present and S2 normal heart sound present GI: OTHER: Abdomen soft, distended, scattered bowel sounds, no guarding, no rebound, no rigidity Extremity: COMMON NORMALS: no pedal edema Neuro: COMMON NORMALS: patient oriented x3 Psych: COMMON NORMALS: mental status grossly normal Data 03/22/24 03:23 03/22/24 07:02 Micro: Microbiology 03/22/24 13:35 Blood Culture - Preliminary Blood SPECIMEN COLLECTED 03/22/24 13:34 Blood Culture - Preliminary Blood SPECIMEN COLLECTED A&P Assessment and plan (1) Cardiorenal syndrome: (2) Hyponatremia: (3) Cirrhosis: (4) Hyperbilirubinemia: (5) Umbilical hernia: (6) SBP (spontaneous bacterial peritonitis): (7) Acute kidney injury: (8) Chest pain: (9) Anemia: (10) Metabolic acidosis: (11) Dehydration: Plan #Hypovolemic hyponatremia #LAQUITA on CKD #Component of hepatorenal syndrome #Liver disease #History of SBP #Fatigue malaise #History of anemia requiring packed RBC #Hypotension history ? Check urine sodium, urine osmolality, serum osmolality. Check BMP every 4 hours. ? Check blood cultures ? Placed on gentle IV hydration with normal saline 55 cc/h ? Patient does have evidence of LAQUITA at this admission. Possibly component of hepatorenal syndrome. Continue IV gentle hydration. Probably component of dehydration as well. Patient drinks a lot of tea as per . ? Will order paracentesis for Sunday and check labs to rule out SBP. Will cover with him 2 g every 12 hours at this time. ? Patient is on transplant list. ? He does have a history of pneumonia requiring packed RBC. Will hold off on pharmacological DVT prophylaxis and continue SCDs at this time. ? Continue home medications hydrocodone, lactulose, Reglan, midodrine, pantoprazole, MiraLAX, rifaximin, sucralfate. Full code SCDs for DVT prophylaxis Attestations 2 Medical Necessity Statement*: Greater than 2 midnight stay for management of hypovolemic hyponatremia Diagnoses Cardiorenal syndrome I13.10 Hyponatremia E87.1 Cirrhosis K74.60 Hyperbilirubinemia E80.6 Umbilical hernia K42.9 SBP (spontaneous bacterial peritonitis) K65.2 Acute kidney injury N17.9 Chest pain R07.9 Anemia D64.9 Metabolic acidosis E87.20 Dehydration E86.0
[2024-03-22] MEDS: lactulose oral liq 20 gm/30 mL UDC 10 GM PO (18:43)
[2024-03-22] MEDS: ondansetron 2 mg/ML SDV 2 mL 4 MG IVP (19:44)
[2024-03-22 20:26] LABS: Anion Gap 20.1 (5-19); Blood Urea Nitrogen 31 mg/dL (6-20); Calcium 8.8 mg/dL (8.5-10.5); Carbon Dioxide 17 mmol/L (22-29); Chloride 95 mmol/L (98-107); Creatinine Clr Calc Pharmacy 32.7664; Glomerular Filtration Rate 26.4 mL/min (90-130); Glucose 142 mg/dL (65-115); Osmolality Calculated 277 mOsm/kg (285-295); Potassium 3.1 mmol/L (3.5-5.1); Sodium 129 mmol/L (136-145)
[2024-03-22] MEDS: morphine 4 mg/mL SDV 1 mL 2 MG IVP (21:14)
[2024-03-22 21:15] LABS: Blood Urea Nitrogen 31 mg/dL (6-20); Calcium 8.9 mg/dL (8.5-10.5); Carbon Dioxide 16 mmol/L (22-29); Chloride 95 mmol/L (98-107); Creatinine Clr Calc Pharmacy 37.0403; Glomerular Filtration Rate 30.4 mL/min (90-130); Glucose 126 mg/dL (65-115); Osmolality Calculated 274 mOsm/kg (285-295); Sodium 128 mmol/L (136-145)
[2024-03-22] MEDS: cefTRIAXone 2,000 mg SDV 2000 MG IVP (21:22)
[2024-03-22 21:27] LABS: Anion Gap 20.5 (5-19); Potassium 3.5 mmol/L (3.5-5.1)
[2024-03-23] VITALS (9 sets, daily range): BP systolic 111–120; BP diastolic 70–78; PULSE 88–103; RESP 13–21; TEMP 36.6–36.8; O2SAT 94–98; BMI 22.1
[2024-03-23 01:50] LABS: Basophils % 0.4 %; Eosinophils # 0.2 10^3/uL (0.0-0.8); Eosinophils % 2.7 %; Hematocrit 24.5 % (37-53); Lymphocytes # 0.5 10^3/uL (0.8-4.8); Lymphocytes % 7.1 %; Mean Corpuscular HGB Conc 36.3 g/dL (30-55); Mean Corpuscular Hemoglobin 35.6 pg (27-33); Mean Platelet Volume 10.8 fL (7.4-10.4); Monocytes # 0.9 10^3/uL (0.2-0.9); Monocytes % 13.4 %; Neutrophils # 5.28 10^3/uL (1.8-7.7); Nucleated Red Blood Cells % 0 %; Platelet Count 93 10^3/cmm (157-399); Red Cell Distribution Width 21.9 % (12.1-15.1); White Blood Count 6.95 10^3/uL (3.29-11.43)
[2024-03-23 02:04] LABS: Alanine Aminotransferase 41 U/L (0-41); Albumin Level 3.9 g/dL (3.5-5.2); Alkaline Phosphatase 148 U/L (40-130); Anion Gap 18.6 (5-19); Aspartate Amino Transferase 64 U/L (0-40); Blood Urea Nitrogen 30 mg/dL (6-20); Calcium 8.6 mg/dL (8.5-10.5); Carbon Dioxide 18 mmol/L (22-29); Chloride 96 mmol/L (98-107); Creatinine Clr Calc Pharmacy 34.0771; Globulin 1.8 g/dL (1.3-4.6); Glomerular Filtration Rate 27.6 mL/min (90-130); Glucose 110 mg/dL (65-115); Osmolality Calculated 275 mOsm/kg (285-295); Phosphorus 3.6 mg/dL (2.5-4.5); Potassium 3.6 mmol/L (3.5-5.1); Sodium 129 mmol/L (136-145); Total Bilirubin 2.7 mg/dL (0.15-1.2); Total Protein 5.7 g/dL (6.6-8.7)
[2024-03-23 02:09] LABS: Anion Gap 19.7 (5-19); Blood Urea Nitrogen 31 mg/dL (6-20); Calcium 8.6 mg/dL (8.5-10.5); Carbon Dioxide 17 mmol/L (22-29); Chloride 97 mmol/L (98-107); Creatinine Clr Calc Pharmacy 34.0771; Glomerular Filtration Rate 27.6 mL/min (90-130); Glucose 111 mg/dL (65-115); Osmolality Calculated 277 mOsm/kg (285-295); Potassium 3.7 mmol/L (3.5-5.1); Sodium 130 mmol/L (136-145)
[2024-03-23] MEDS: HYDROcodone-acetaminophen 5-325 mg Tablet 0.5 TAB PO (02:37)
[2024-03-23 06:00] LABS: Anion Gap 18.6 (5-19); Blood Urea Nitrogen 30 mg/dL (6-20); Calcium 8.7 mg/dL (8.5-10.5); Carbon Dioxide 18 mmol/L (22-29); Chloride 97 mmol/L (98-107); Glomerular Filtration Rate 28.9 mL/min (90-130); Glucose 120 mg/dL (65-115); Osmolality Calculated 277 mOsm/kg (285-295); Potassium 3.6 mmol/L (3.5-5.1); Sodium 130 mmol/L (136-145)
[2024-03-23] MEDS: sodium chloride 0.9% 1,000 ML 55 ML IV (06:09)
[2024-03-23] MEDS: ondansetron 2 mg/ML SDV 2 mL 4 MG IVP ×3 (07:20→23:22)
--- NOTE | 2024-03-23 07:31 | PC.NURSE ---
patient requesting something other than norco for ascites pain. Dr Avelar contacted and she wrote for morphine 4mg q6H prn. Ordered entered. Zofran also given to patient at 0730 for complaint of nausea.
[2024-03-23] MEDS: lactulose oral liq 20 gm/30 mL UDC 10 GM PO ×2 (07:54→17:00)
[2024-03-23] MEDS: allopurinol 300 mg Tablet PO (07:54)
[2024-03-23] MEDS: cefTRIAXone 2,000 mg SDV 2000 MG IVP ×2 (07:55→20:24)
[2024-03-23] MEDS: midodrine 5 mg TABLET 10 MG PO ×3 (07:56→20:23)
[2024-03-23] MEDS: morphine 4 mg/mL SDV 1 mL IVP ×3 (07:56→23:21)
[2024-03-23] MEDS: rifaximin 200 mg Tablet 600 MG PO ×2 (11:12→20:23)
[2024-03-23] MEDS: pantoprazole DR 40 mg Tablet PO ×2 (11:13→23:21)
[2024-03-23] MEDS: sucralfate 1 gm Tablet PO ×2 (11:13→23:21)
[2024-03-23] MEDS: metoclopramide 10 mg Tablet 5 MG PO ×2 (12:23→20:23)
--- NOTE | 2024-03-23 14:16 | P.PN_ITS ---
Subjective 2 Subjective: Seen this morning. Sodium has improved to 130. 5 point increase since admission. Creatinine improved to 2.4. Patient states he feels better however has abdominal distention and still having mild intermittent abdominal pain. Vitals/I&O/Wt Last Vital Signs Temp 98.1 F 03/23/24 11:08 Pulse 92 03/23/24 11:08 Resp 13 03/23/24 11:08 BP 117/70 03/23/24 11:08 Pulse Ox 97 03/23/24 11:08 O2 Del Method Room Air 03/23/24 11:08 03/22/24 03/23/24 03/23/24 22:59 06:59 14:59 Intake Total 994.583 / 994.583 120 / 120 Output Total 300 / 300 400 / 700 100 / 100 Balance -300 / -300 594.583 / 294.583 20 / 20 Weight last 48 hrs Weight 65.913 kg Weight 63.503 kg Physical Exam 2 Const: COMMON NORMALS: no acute distress and patient oriented x3 Resp: COMMON NORMALS: normal respiratory effort, No retractions, No use of accessory muscles and clear to auscultation bilaterally AUSCULTATION: clear to auscultation bilaterally Cardio: COMMON NORMALS: regular rate, regular rhythm, S1 normal heart sound present and S2 normal heart sound present RATE: regular rate RHYTHM: r egular rhythm HEART SOUNDS: S1 normal heart sound present and S2 normal heart sound present GI: OTHER: Abdomen soft, distended, scattered bowel sounds, no guarding, no rebound, no rigidity Extremity: COMMON NORMALS: no pedal edema Neuro: COMMON NORMALS: patient oriented x3 Psych: COMMON NORMALS: mental status grossly normal Data 03/23/24 01:30 03/23/24 04:33 Micro: Microbiology 03/22/24 13:35 Blood Culture - Preliminary Blood NEGATIVE TO DATE 03/22/24 13:34 Blood Culture - Preliminary Blood NEGATIVE TO DATE A&P Assessment and plan (1) Cardiorenal syndrome: (2) Hyponatremia: (3) Cirrhosis: (4) Hyperbilirubinemia: (5) Umbilical hernia: (6) SBP (spontaneous bacterial peritonitis): (7) Acute kidney injury: (8) Chest pain: (9) Anemia: (10) Metabolic acidosis: (11) Dehydration: Plan #Hypovolemic hyponatremia #LAQUITA on CKD #Component of hepatorenal syndrome #Liver disease #History of SBP #Fatigue malaise #History of anemia requiring packed RBC #Hypotension history ? Check urine sodium, urine osmolality, serum osmolality. Check BMP every 4 hours. ? Check blood cultures ? Placed on gentle IV hydration with normal saline 55 cc/h ? Patient does have evidence of LAQUITA at this admission. Possibly component of hepatorenal syndrome. Continue IV gentle hydration. Probably component of dehydration as well. Patient drinks a lot of tea as per . ? Will order paracentesis for Sunday and check labs to rule out SBP. Will cover with him 2 g every 12 hours at this time. ? Patient is on transplant list. ? He does have a history of pneumonia requiring packed RBC. Will hold off on pharmacological DVT prophylaxis and continue SCDs at this time. ? Continue home medications hydrocodone, lactulose, Reglan, midodrine, pantoprazole, MiraLAX, rifaximin, sucralfate. Full code SCDs for DVT prophylaxis 03/23/2024 Sodium has improved to 130. Continue gentle IV hydration but reduced rate to 30 cc/h. LAQUITA is also improving. Creatinine 2.4 this morning. I will continue to check BMP every 8 hours. Ensure correction no more than 6-8 within 24-hour period. So far he has only increased 5 points. Encourage patient to take fluids by mouth. Plan for paracentesis in AM. N.p.o. at midnight Ceftriaxone 2 g IV every 12 hours ordered to cover for SBP Continue lactulose, rifaximin, morphine as needed. May be able to discharge after paracentesis if SBP ruled out. Attestations 2 Medical Necessity Statement*: Greater than 2 midnight stay for management of hypovolemic hyponatremia Diagnoses Cardiorenal syndrome I13.10 Hyponatremia E87.1 Cirrhosis K74.60 Hyperbilirubinemia E80.6 Umbilical hernia K42.9 SBP (spontaneous bacterial peritonitis) K65.2 Acute kidney injury N17.9 Chest pain R07.9 Anemia D64.9 Metabolic acidosis E87.20 Dehydration E86.0
--- NOTE | 2024-03-23 15:43 | PC.NURSE ---
pt's fuids decreased to 30cc/hr from 55cc/hr due to shabana, sodium level, and worrying about sscites.
[2024-03-23 15:51] LABS: Anion Gap 20.7 (5-19); Blood Urea Nitrogen 28 mg/dL (6-20); Calcium 9.1 mg/dL (8.5-10.5); Carbon Dioxide 17 mmol/L (22-29); Chloride 95 mmol/L (98-107); Creatinine Clr Calc Pharmacy 37.0403; Glomerular Filtration Rate 30.4 mL/min (90-130); Glucose 141 mg/dL (65-115); Osmolality Calculated 276 mOsm/kg (285-295); Potassium 3.7 mmol/L (3.5-5.1); Sodium 129 mmol/L (136-145)
--- NOTE | 2024-03-23 18:27 | PC.NURSE ---
patient's requested a breathing treatment or a rescue inhaler. Dr Avelar contacted and she wrote that she would order a douneb q4H prn. Patient and verbalized understanding.
[2024-03-23] MEDS: prochlorperazine 10 mg/2 mL Inj 5 MG IVP (21:41)
[2024-03-23 23:17] LABS: Anion Gap 18.6 (5-19); Blood Urea Nitrogen 31 mg/dL (6-20); Calcium 9.1 mg/dL (8.5-10.5); Carbon Dioxide 19 mmol/L (22-29); Chloride 97 mmol/L (98-107); Glomerular Filtration Rate 28.9 mL/min (90-130); Glucose 141 mg/dL (65-115); Osmolality Calculated 281 mOsm/kg (285-295); Potassium 3.6 mmol/L (3.5-5.1); Sodium 131 mmol/L (136-145)
[2024-03-24] VITALS (11 sets, daily range): BP systolic 111–123; BP diastolic 62–74; PULSE 84–112; RESP 12–19; TEMP 36.6–37; O2SAT 94–98
[2024-03-24 02:34] LABS: Basophils # 0.1 10^3/uL (0.0-0.1); Basophils % 0.9 %; Eosinophils # 0.2 10^3/uL (0.0-0.8); Eosinophils % 2.9 %; Hematocrit 28.6 % (37-53); Lymphocytes # 0.5 10^3/uL (0.8-4.8); Lymphocytes % 6.1 %; Mean Corpuscular Hemoglobin 35.6 pg (27-33); Mean Corpuscular Volume 101.8 fl (82-101); Mean Platelet Volume 10.8 fL (7.4-10.4); Monocytes # 1.4 10^3/uL (0.2-0.9); Neutrophils # 5.65 10^3/uL (1.8-7.7); Neutrophils % 71.7 %; Nucleated Red Blood Cells % 0 %; Platelet Count 94 10^3/cmm (157-399); Red Blood Count 2.81 10^6/uL (3.85-5.65); Red Cell Distribution Width 22.5 % (12.1-15.1); White Blood Count 7.88 10^3/uL (3.29-11.43)
[2024-03-24 03:01] LABS: Blood Urea Nitrogen 31 mg/dL (6-20); Calcium 9.4 mg/dL (8.5-10.5); Carbon Dioxide 18 mmol/L (22-29); Chloride 97 mmol/L (98-107); Creatinine Clr Calc Pharmacy 37.0403; Glomerular Filtration Rate 30.4 mL/min (90-130); Glucose 116 mg/dL (65-115); Osmolality Calculated 282 mOsm/kg (285-295); Sodium 132 mmol/L (136-145)
[2024-03-24 03:08] LABS: Anion Gap 20.8 (5-19); Potassium 3.8 mmol/L (3.5-5.1)
[2024-03-24] MEDS: metoclopramide 10 mg Tablet 5 MG PO (05:36)
[2024-03-24] MEDS: morphine 4 mg/mL SDV 1 mL IVP ×3 (05:37→19:42)
[2024-03-24 07:18] LABS: Blood Urea Nitrogen 31 mg/dL (6-20); Calcium 9.4 mg/dL (8.5-10.5); Carbon Dioxide 17 mmol/L (22-29); Chloride 95 mmol/L (98-107); Creatinine Clr Calc Pharmacy 35.7632; Glomerular Filtration Rate 28.9 mL/min (90-130); Glucose 115 mg/dL (65-115); Osmolality Calculated 277 mOsm/kg (285-295); Sodium 130 mmol/L (136-145)
[2024-03-24 07:24] LABS: Anion Gap 22.2 (5-19); Potassium 4.2 mmol/L (3.5-5.1)
[2024-03-24] MEDS: rifaximin 200 mg Tablet 600 MG PO ×2 (08:29→17:51)
[2024-03-24] MEDS: midodrine 5 mg TABLET 10 MG PO ×3 (08:29→20:13)
[2024-03-24] MEDS: lactulose oral liq 20 gm/30 mL UDC 10 GM PO ×2 (08:29→17:51)
[2024-03-24] MEDS: allopurinol 300 mg Tablet PO (08:29)
[2024-03-24] MEDS: pantoprazole DR 40 mg Tablet PO ×2 (11:06→23:47)
[2024-03-24] MEDS: sucralfate 1 gm Tablet PO ×2 (11:06→23:47)
[2024-03-24 14:41] LABS: Apprearance, Body Fluid CLOUDY; Color, Body Fluid PALE YELLOW; Cyto Order Verification Order Verified; PATH Referral YES
[2024-03-24 14:42] LABS: pH Body Fluid 7.5
[2024-03-24 14:53] LABS: Body Fluid Polynuclear #Cells 0.005; Body Fluid WBC 37 /uL; Fluid Laterality PERITONEAL FLUID; Monocytes # Body Fluid 0.032; RBC, Body Fluid 0 10^3/uL
[2024-03-24 15:19] LABS: Albumin Body Fluid 0.5 g/dL; Cholesterol Body Fluid 17 mg/dL (0-200); Fluid Alkaline Phos. 13 IU/L; LDH Body Fluid 24 U/L; Total Protein Body Fluid 0.7 g/dL; Triglycerides Body Fluid 50 mg/dL (0-150)
[2024-03-24 15:20] LABS: Uric Acid Body Fluid 4 mg/dL
[2024-03-24] MEDS: albumin 25 G/100 ML BAG 60 G IV (15:22)
[2024-03-24 15:48] LABS: Osmolality Serum 294 mOsm/kg (278-305)
--- NOTE | 2024-03-24 16:51 | P.PN_ITS ---
Subjective 2 Subjective: Hospital course, labs appreciated. Seen with family at bedside. Patient lying comfortably in bed. Complaining of nausea but no vomiting. Unable to keep his medications or breakfast down today. Denies any difficulty in breathing. Abdominal pain is tolerable. Vitals/I&O/Wt Last Vital Signs Temp 98.1 F 03/24/24 11:13 Pulse 112 H 03/24/24 11:13 Resp 19 H 03/24/24 11:13 BP 114/74 03/24/24 11:13 Pulse Ox 97 03/24/24 11:13 O2 Del Method Room Air 03/24/24 11:13 03/24/24 03/24/24 03/24/24 06:59 14:59 22:59 Output Total 125 / 305 Balance -125 / 1055.000 Weight last 48 hrs Weight 67.177 kg Weight 65.913 kg Weight 65.913 kg Physical Exam 2 Narrative: General: No acute distress, AO x3, chronically sick appearing, icterus present HEENT: PERRLA, pupils bilaterally equal and reactive Chest: Normal vesicular breath sounds, no added sounds, equal good air entry bilaterally CVS: S1-S2 regular, no murmurs, no tachycardia, no gallops, no rubs Abdomen: Soft,, distended, fluid thrill present, nontender, no organomegaly, bowel sounds present Neuro: No focal deficits, no facial deformity, AO x3, power 5/5 in all limbs Data 03/24/24 01:38 03/24/24 06:49 Micro: Microbiology 03/24/24 14:00 Gram Stain - Final Peritoneal Fluid 03/22/24 13:35 Blood Culture - Preliminary Blood NEGATIVE TO DATE 03/22/24 13:34 Blood Culture - Preliminary Blood NEGATIVE TO DATE A&P Assessment and plan (1) Hyponatremia: (2) Cardiorenal syndrome: (3) Cirrhosis: (4) Dehydration: (5) Metabolic acidosis: (6) Hyperbilirubinemia: (7) Umbilical hernia: (8) SBP (spontaneous bacterial peritonitis): Ruled out (9) Anemia: Plan #Hypovolemic hyponatremia #LAQUITA on CKD #Component of hepatorenal syndrome #Liver cirrhosis #History of SBP #Fatigue malaise #History of anemia requiring packed RBC #Hypotension history Hyponatremia seems to be resolving. Up to 130 today. Closer to baseline. Most likely will plan to discharge patient on oral salt tablet 1 g twice daily. Repeat sodium level in evening. LAQUITA on CKD: Creatinine close to baseline. LAQUITA has resolved. Component of hepatorenal syndrome along with dehydration. Continue with current dose of midodrine 10 mg 3 times daily. Goal blood pressure less than 140/90 mmHg with mean over 65. Appreciate albumin levels. Liver cirrhosis/abdominal distention: Patient is going to be going for paracentesis today. SBP less likely. Follow-up fluid studies. Change ceftriaxone to 1 g IV daily. Will discontinue ceftriaxone if SBP ruled out. Plan for albumin depending on the volume of paracentesis. Patient gets paracentesis weekly. Patient will benefit from paracentesis drain. Anemia: Hemoglobin at baseline. Metabolic acidosis: Most likely in setting of hepatorenal syndrome and LAQUITA on CKD. Continue to monitor. Nausea/vomiting: Continue with Zofran as needed. Protonix twice daily, rifaximin twice daily. Clear liquid diet. Full code SCDs for DVT prophylaxis Attestations 2 Medical Necessity Statement*: Requires further hospitalization for management of acute on chronic hyponatremia in setting of liver disorder, hepatorenal syndrome, LAQUITA on CKD requiring paracentesis while SBP is ruled out Diagnoses Hyponatremia E87.1 Cardiorenal syndrome I13.10 Cirrhosis K74.60 Dehydration E86.0 Metabolic acidosis E87.20 Hyperbilirubinemia E80.6 Umbilical hernia K42.9 SBP (spontaneous bacterial peritonitis) K65.2 Anemia D64.9
--- NOTE | 2024-03-24 17:03 | PC.NURSE ---
Paracentesis performed today by Dr. Guillen. 7.65liters removed. Patient tolerated well. Order received for albumin 25g ONCE.
--- NOTE | 2024-03-24 17:32 | US_ITS ---
WS: [id number] ULTRASOUND-GUIDED PARACENTESIS CLINICAL INFORMATION: r/o sbp COMPARISON: None. Procedure Informed consent: The risks, benefits, and alternatives of the procedure were discussed with the avi ent. Verbal and written consent was obtained. Timeout: A timeout was performed to confirm the correct patient, procedure, and site. Preparation: A suitable skin site was identified. The patient was prepped and draped in usual sterile fashion. Lidocaine 1% was used for local anesthesia. Catheter: 4 Austrian One-step Manthan Systemseh catheter. Side: LEFT lower quadrant. Fluid Volume: 7675 ml Color: Clear yellow DISPOSITION: Discarded safely. Complications: None. US/US paracentesis abd w [id number] IMPRESSION: Uncomplicated ultrasound-guided paracentesis. Removal of 7675 cc
[2024-03-24] MEDS: sodium chloride 1 gm Tablet PO (17:51)
[2024-03-24] MEDS: cefTRIAXone 2,000 mg SDV 1000 MG IVP (17:51)
[2024-03-24 18:20] LABS: Sodium 128 mmol/L (136-145)
[2024-03-24] MEDS: ondansetron 2 mg/ML SDV 2 mL 4 MG IVP (19:42)
[2024-03-25 00:05] VITALS: BP 103/58; PULSE 87; RESP 19; TEMP 36.7; O2SAT 99
[2024-03-25 03:00] VITALS: RESP 16
[2024-03-25] MEDS: morphine 4 mg/mL SDV 1 mL IVP ×2 (03:00→09:21)
[2024-03-25 05:35] LABS: Basophils # 0.1 10^3/uL (0.0-0.1); Basophils % 0.7 %; Eosinophils # 0.2 10^3/uL (0.0-0.8); Eosinophils % 2.9 %; Hematocrit 25.5 % (37-53); Lymphocytes # 0.6 10^3/uL (0.8-4.8); Lymphocytes % 7.9 %; Mean Corpuscular HGB Conc 35.3 g/dL (30-55); Mean Corpuscular Hemoglobin 35.4 pg (27-33); Mean Corpuscular Volume 100.4 fl (82-101); Mean Platelet Volume 10.4 fL (7.4-10.4); Monocytes # 1.1 10^3/uL (0.2-0.9); Monocytes % 15.6 %; Neutrophils % 72.3 %; Nucleated Red Blood Cells % 0 %; Platelet Count 91 10^3/cmm (157-399); Red Blood Count 2.54 10^6/uL (3.85-5.65); Red Cell Distribution Width 22.1 % (12.1-15.1); White Blood Count 7.19 10^3/uL (3.29-11.43)
--- OUTSIDE RECORDS SUMMARY | 2024-03-25 05:42 | XMS_ITS | Clinical Summary ---
Author Organization [facility] Address [address] Attn: Epic Prelude ADT MIGUEL ELKINS [address] Care Team Providers Care Tripe Washer Name Role Phone Unavailable Primary Care Provider Unavailabl e Allergies Active Allergy Reactions Criticality Noted Date Comments Ciprofloxacin Other (See Comments) 11/23/2016 Joint pain Medications allopurinoL (ZYLOPRIM) 300 mg tablet TAKE ONE TABLET BY MOUTH ONCE A DAY FOR GOUT. TAKE WITH PLENTY OF WATER. 11/15/2018 Active cholecalciferol, vitamin D3, (VITAMIN D3 ORAL) Take by mouth daily. 12/09/2019 Active lactulose (ENULOSE) 10 gram/15 mL 10 gram/15 mL solution Take 20 Grams by mouth 2 times daily as needed for Constipatio n. 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 Gender Identity Not on file Sexual Orientation Not on file Last Filed Vital Signs Vital Sign Reading Time Taken Comments Blood Pressure 126/87 12/12/2019 11:50 AM CDT Pulse 72 12/12/2019 11:50 AM CDT Temperature - - Respiratory Rate 16 12/12/2019 11:50 AM CDT Oxygen Saturation - - Inhaled Oxygen Concentration - - Weight 81.6 kg (180 lb) 12/09/2019 4:37 PM CDT Height 172.7 cm (5' 8 ) 12/09/2019 4:37 PM CDT Body Mass Index 27.37 12/09/2019 4:37 PM CDT Plan of Treatment Health Maintenance Due Date Last Done Comments DTAP/TDAP/TD VACCINES (1 - Tdap) 1993 HEPATITIS B VACCINES (1 of 3 - 19+ 3-dose series) 04/19 COLORECTAL SCREENING 05/03/2019 Colorectal Cancer Screening 05/03/2019 FIT-DNA Q 3 years 05/03/2019 FIT/FOBT Q 1 year 05/03/2019 Flex Sig/CT Colonography Q 5 years 05/03/2019 INFLUENZA VACCINE (#1) 2023 Medical Devices Implanted Type Area Site Surveyor Device Identifier Shelf Expiration Date Model / Serial / Lot Ligator Band 4 Super 7 [id number] - [id number] Implanted:Qty : 4 on 08/01/2019 by Everett Kelly MD Other N/A: Esophagus [employer] 04/23/2020 [id number] / [id number] / [id number] Ligator Band 4 Super 7 [id number] - [id number] Implanted:Qty : 1 on 11/04/2019 by Boaz Zarate MD Other N/A: Esophagus [employer] 06/25/2020 [id number] / / [id number] Description:7 bands implante d Ligator Band 4 Super 7 [id number] - [id number] Implanted:Qty : 1 on 12/12/2019 by Boaz Zarate MD Other N/A: Esophagus [employer] 08/11/2020 [id number] / [id number] / [id number] Description:4 implanted 5 de ployed
--- OUTSIDE RECORDS SUMMARY | 2024-03-25 05:42 | XMS_ITS | Clinical Summary ---
Author Organization [facility] Address [address] [place] [address] Phone Care Team Providers Care Shipping/Receiving Manager Name Role Phone Unavailable Primary Care Provider Unavailabl e Allergies Active Allergy Reactions Criticality Noted Date Comments Ciprofloxacin Other (See Comments) 11/23/2016 Joint pain Medications allopurinoL (ZYLOPRIM) 300 mg tablet TAKE ONE TABLET BY MOUTH ONCE A DAY FOR GOUT. TAKE WITH PLENTY OF WATER. 11/15/2018 Active cholecalciferol, vitamin D3, (VITAMIN D3 ORAL) Take by mouth daily. Active lactulose (ENULOSE) 10 gram/15 mL 10 gram/15 mL solution Take 20 Grams by mouth 2 times daily as needed for Constipatio n. Active Active Problems No known active problems Family History Medical History Relation Name Comments Colon Cancer Neg Hx Social History Tobacco Use Types Packs/Day Years Used Date Smoking Tobacco: Heavy Smoker Cigarettes Smokeless Tobacco: Never Alcohol Use Standard Drinks/Week Comments Yes 0 (1 standard drink = 0.6 oz pure alcohol) 6-9-20 Previously heavy drinker Sex and Gender Information Value Date Recorded Sex Assigned at Not on file Legal Sex Male 12:12 PM CDT Gender Identity Not on file Sexual Orientation Not on file Last Filed Vital Signs Vital Sign Reading Time Taken Comments Blood Pressure 126/87 12/12/2019 11:50 AM CDT Pulse 72 12/12/2019 11:50 AM CDT Temperature - - Respiratory Rate 16 12/12/2019 11:50 AM CDT Oxygen Saturation 95% 12/12/2019 11:50 AM CDT Inhaled Oxygen Concentration - - Weight 81.6 kg (180 lb) 12/09/2019 4:37 PM CDT Height 172.7 cm (5' 8 ) 12/09/2019 4:37 PM CDT Body Mass Index 27.37 12/09/2019 4:37 PM CDT Plan of Treatment Health Maintenance Due Date Last Done Comments HEPATITIS B VACCINES (1 of 3 - 19+ 3-dose series) 1993 COLORECTAL SCREENING 05/03/2019 Colorectal Cancer Screening 05/03/2019 FIT-DNA Q 3 years 05/03/2019 FIT/FOBT Q 1 year 05/03/2019 Flex Sig/CT Colonography Q 5 years 05/03/2019 PNEUMOCOCCAL VACCINE 0-64 YE ARS (2 of 2 - PCV) 11/14/2019 11/13/2018 INFLUENZA VACCINE (#1) 2023 9, 11/23/2017, 11/23/2016 DTAP/TDAP/TD VACCINES (2 - T d or Tdap) 11/23/2026 11/23/2016 Medical Devices Implanted Type Area Intellectual Property Manager Device Identifier Shelf Expiration Date Model / Serial / Lot Ligator Band 4 Super 7 [id number] - [id number] Implanted:Qty: 4 on 08/01/2019 by Everett Kelly MD at [facility] Other N/A: Esophagus [employer] 04/23/2020 [id number] / [id number] / [id number] Ligator Band 4 Super 7 [id number] - [id number] Implanted:Qty: 1 on 11/04/2019 by Boaz Zarate MD at [facility] Other N/A: Esophagus [employer] 06/25/2020 [id number] / / [id number] Description:7 bands implante d Ligator Band 4 Super 7 [id number] - [id number] Implanted:Qty: 1 on 12/12/2019 by Boaz Zarate MD at [facility] Other N/A: Esophagus [employer] 08/11/2020 [id number] / [id number] / [id number] Description:4 implanted 5 de ployed Insurance [facility] [employer] [facility] [employer]
[2024-03-25 05:55] LABS: Alanine Aminotransferase 32 U/L (0-41); Albumin Level 3.9 g/dL (3.5-5.2); Alkaline Phosphatase 127 U/L (40-130); Aspartate Amino Transferase 42 U/L (0-40); Blood Urea Nitrogen 29 mg/dL (6-20); Carbon Dioxide 19 mmol/L (22-29); Chloride 97 mmol/L (98-107); Creatinine Clr Calc Pharmacy 39.0144; Globulin 1.8 g/dL (1.3-4.6); Glucose 118 mg/dL (65-115); Osmolality Calculated 275 mOsm/kg (285-295); Sodium 129 mmol/L (136-145); Total Protein 5.7 g/dL (6.6-8.7)
[2024-03-25 06:00] VITALS: BMI 20.6
[2024-03-25 06:04] LABS: Anion Gap 16.7 (5-19); Potassium 3.7 mmol/L (3.5-5.1)
[2024-03-25 06:17] VITALS: BP 95/64; PULSE 80; RESP 18; TEMP 36.5; O2SAT 96
[2024-03-25 07:37] VITALS: BP 113/64; PULSE 94; RESP 12; TEMP 36.8; O2SAT 99
[2024-03-25 08:00] VITALS: BP 113/64; PULSE 94; RESP 12; TEMP 36.8
[2024-03-25] MEDS: midodrine 5 mg TABLET 10 MG PO (08:37)
[2024-03-25] MEDS: sodium chloride 1 gm Tablet PO (08:37)
[2024-03-25] MEDS: lactulose oral liq 20 gm/30 mL UDC 10 GM PO (08:37)
[2024-03-25] MEDS: rifaximin 200 mg Tablet 600 MG PO (08:37)
[2024-03-25] MEDS: allopurinol 300 mg Tablet PO (08:37)
[2024-03-25] MEDS: spironolactone 25 mg Tablet PO (08:38)
[2024-03-25] MEDS: ondansetron 2 mg/ML SDV 2 mL 4 MG IVP (09:25)
--- NOTE | 2024-03-25 10:21 | PC.CHAP ---
Pastoral Care Encounter/Spiritual Assessment Type of Contact [] Declined supervisor assembly room visit [] Patient/Family/Request visit [] Outpatient visit [] Follow-up visit [] Physician referral [] Code/Alert [] Routine visit [] Staff referral [] Actively dying [] Patient sleeping [] Family support [] [] Out of room [] Palliative care [] [x] Receiving care in room [] Pre-surgical visit [] Trauma [] Long length of stay [] ICU visit [] Other: Relational/Emotional Strength [] Patient feels connected with others/family/visitors/staff [] Distress [] Loneliness/isolation [] Abandonment Spirituality of Patient [] Person of Adry [] Attends Mormonism of their Adry [] Believes in Prayer [] Reads Bible or Spiritism materials [] There are Spiritual issues to be addressed Airfield Services Officer 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 [] Prayer [] Active listening [] Non-anxious presence [] Spiritual/emotional support [] Crisis/trauma care [] Spiritual counseling [] Bereavement support [] Provided bereavement packet [] Provided Bible/devotional materials [] Provided toy/stuffed animal, coloring book to patient or family member [] Provided Communion [] Anointing/[place] [] Salvation [] Completed spiritual assessment [] Other: Impact on Illness or Injury [] Angry [] Fearful [] Anxious [] Often cries [] Exhaustion [] Unable to work [] Unable to attend adventism [] Unable to walk/stand [] Unable to read [] Unable to drive [] Unable to eat/drink [] Unable to sleep [] Unable to be with family [] Patient intubated [] Other: Summary Time spent with patient
[2024-03-25 10:25] VITALS: BP 113/64; PULSE 92; RESP 12; O2SAT 96
[2024-03-25 11:41] LABS: INR 1.21 (0.8-1.2)
--- NOTE | 2024-03-25 12:00 | P.DS_ITS ---
Discharge Providers Date of Admission: 03/22/24 12:34 Date of Discharge: March 25, 2024 Attending Provider at Admission: Kassandra Avelar MD Attending Provider at Discharge: Brian Law MD Primary Care Provider: Alia Sanchez MD Diagnoses at Discharge Discharge Diagnosis (1) Hyponatremia: Status: Resolved (2) Cardiorenal syndrome: Status: Acute (3) Cirrhosis: Status: Resolved (4) Dehydration: Status: Resolved (5) Metabolic acidosis: Status: Resolved (6) Hyperbilirubinemia: Status: Acute (7) Umbilical hernia: Status: Acute (8) SBP (spontaneous bacterial peritonitis): Status: Resolved (9) Anemia: Status: Resolved Reason for Visit Reason for Visit: Weakness,Shakeness Brief History: History as per HPI: Chase Rivero is a 48 year old male with a past medical history of end-stage liver disease currently on liver transplant list, CKD, hepatorenal syndrome, plans to be on kidney transplant list, history of recurrent ascites, recurrent paracentesis, hernia repair, acute on chronic anemia requiring transfusion, chronic hypotension requiring midodrine, history of hyponatremia, who presents [facility] for fatigue malaise. He states that on and off he has been feeling weak and sick with nausea. He has not had any vomiting today however has vomited in the last 2 days. He was recently discharged 3 days ago for similar complaints. Hospital Course Hospital Course Was admitted to the hospital further evaluation and management of LAQUITA on CKD, hypovolemic hyponatremia concerns for hepatorenal syndrome, ascites. He was started on treatment with gentle IV hydration. Gradually his sodium levels improved and are back to his baseline. His renal function stabilized and are also back to his baseline on IV hydration. He underwent paracentesis on 03/24 and over 7 L of fluid was drained. SBP was ruled out. He has been discharged with advice of fluid restriction to less than 50 ounces. Patient ideally should be on an daily Lasix weekly paracentesis. He is to discuss further regarding consumption of Lasix with his pediatric neurologist at [facility]. Discharge plan were discussed in detail with the patient and he is been discharged in hemodynamically stable condition. Physical Exam Narrative: General: No acute distress, AO x3, chronically sick appearing, icterus present HEENT: PERRLA, pupils bilaterally equal and reactive Chest: Normal vesicular breath sounds, no added sounds, equal good air entry bilaterally CVS: S1-S2 regular, no murmurs, no tachycardia, no gallops, no rubs Abdomen: Soft,, distended, fluid thrill present, nontender, no organomegaly, bowel sounds present Neuro: No focal deficits, no facial deformity, AO x3, power 5/5 in all limbs Discharge Data Studies Completed and Pending Completed Studies During Hospitalization Category Date Time Status [place]d w [id number] Routine Ultrasound 03/24/24 17:32 Completed Pending at discharge Category Date Time Status Amylase, Peritoneal Fluid Routine Lab 03/22/24 17:33 Received Anaerobic Culture Routine Lab 03/22/24 17:33 Results Blood Culture Routine Lab 03/22/24 13:35 Results Body Fluid Culture & GS Routine Lab 03/22/24 17:33 Results Cystatin C w/GFR Routine Lab 03/24/24 06:49 Received Mycobacteria, Culture w/Fluor Routine Lab 03/22/24 17:33 Received Osmolality Urine Stat Lab 03/22/24 12:15 Received Cytology [PTH] Routine Pth 03/22/24 17:33 Received Radiology Impressions Paracentesis Ultrasound 03/24/24 17:32 IMPRESSION: Uncomplicated ultrasound-guided paracentesis. Removal of 7675 cc Laboratory Results WBC 7.19 10^3/uL (3.29-11.43) 03/25/24 02:14 RBC 2.54 10^6/uL (3.85-5.65) L 03/25/24 02:14 Hgb 9.00 g/dL (11.27-16.99) L 03/25/24 02:14 Hct 25.5 % (37-53) L 03/25/24 02:14 MCV 100.4 fl (82-101) 03/25/24 02:14 MCH 35.4 pg (27-33) H 03/25/24 02:14 MCHC 35.3 g/dL (30-55) 03/25/24 02:14 RDW 22.1 % (12.1-15.1) H 03/25/24 02:14 Plt Count 91 10^3/cmm (157-399) L 03/25/24 02:14 MPV 10.4 fL (7.4-10.4) 03/25/24 02:14 Neut % (Auto) 72.3 % 03/25/24 02:14 Lymph % (Auto) 7.9 % 03/25/24 02:14 [place] % (Auto) 15.6 % 03/25/24 02:14 Eos % (Auto) 2.9 % 03/25/24 02:14 Baso % (Auto) 0.7 % 03/25/24 02:14 Neut # (Auto) 5.20 10^3/uL (1.8-7.7) 03/25/24 02:14 Lymph # (Auto) 0.6 10^3/uL (0.8-4.8) L 03/25/24 02:14 [place] # (Auto) 1.1 10^3/uL (0.2-0.9) H 03/25/24 02:14 Eos # (Auto) 0.2 10^3/uL (0.0-0.8) 03/25/24 02:14 Baso # (Auto) 0.1 10^3/uL (0.0-0.1) 03/25/24 02:14 Nucleated RBC % (auto) 0 % 03/25/24 02:14 Nucleated RBCs # 0.0 /100WBC 03/25/24 02:14 Differential Comment Yes 03/24/24 14:00 PT 16.10 SECONDS (12.1-14.9) H 03/25/24 10:46 INR 1.21 (0.8-1.2) H 03/25/24 10:46 Sodium 129 mmol/L (136-145) L 03/25/24 02:14 Potassium 3.7 mmol/L (3.5-5.1) 03/25/24 02:14 Chloride 97 mmol/L (98-107) L 03/25/24 02:14 Carbon Dioxide 19 mmol/L (22-29) L 03/25/24 02:14 Anion Gap 16.7 (5-19) 03/25/24 02:14 BUN 29 mg/dL (6-20) H 03/25/24 02:14 Creatinine 2.2 mg/dL (0.7-1.2) H 03/25/24 02:14 GFR Calculation 32.0 mL/min (90-130) L 03/25/24 02:14 Glucose 118 mg/dL (65-115) H 03/25/24 02:14 Serum Osmolality 294 mOsm/kg (278-305) 03/22/24 07:02 Calculated Osmolality 275 mOsm/kg (285-295) L 03/25/24 02:14 Calcium 9.0 mg/dL (8.5-10.5) 03/25/24 02:14 Phosphorus 3.6 mg/dL (2.5-4.5) 03/23/24 01:30 Magnesium 2.0 mg/dL (1.7-2.3) 03/23/24 01:30 Total Bilirubin 2.0 mg/dL (0.15-1.2) H 03/25/24 02:14 AST 42 U/L (0-40) H 03/25/24 02:14 ALT 32 U/L (0-41) 03/25/24 02:14 Alkaline Phosphatase 127 U/L (40-130) 03/25/24 02:14 Total Protein 5.7 g/dL (6.6-8.7) L 03/25/24 02:14 Albumin 3.9 g/dL (3.5-5.2) 03/25/24 02:14 Globulin 1.8 g/dL (1.3-4.6) 03/25/24 02:14 Procalcitonin 0.35 ng/mL (0-0.5) 03/22/24 07:02 TSH 2.32 uIU/mL (0.27-4.20) 03/22/24 07:02 Urine Color Yellow (Yellow) 03/22/24 04:22 Urine Appearance Clear (CLEAR) 03/22/24 04:22 Urine pH 5.5 (5-7) 03/22/24 04:22 Ur Specific [place] 1.017 (1.005-1.030) 03/22/24 04:22 Urine Protein Trace (Negative) A 03/22/24 04:22 Urine Glucose (UA) Negative (Normal) 03/22/24 04:22 Urine Ketones Negative (Negative) 03/22/24 04:22 Urine Blood Negative (Negative) 03/22/24 04:22 Urine Nitrate Negative (Negative) 03/22/24 04:22 Urine Bilirubin Negative (Negative) 03/22/24 04:22 Urine Urobilinogen 0.2 mg/dL (Negative) 03/22/24 04:22 Ur Leukocyte Esterase Negative (Negative) 03/22/24 04:22 Urine RBC 0-2 /hpf (0-2) 03/22/24 04:22 Urine WBC 0-5 /hpf (0-5) 03/22/24 04:22 Ur Squamous Epith Cells 0-5 /hpf (0-5) 03/22/24 04:22 Amorphous Sediment Not Reportable 03/22/24 04:22 Urine Bacteria None seen /hpf (NONE) 03/22/24 04:22 Hyaline Casts 4.95 /lpf 03/22/24 04:22 Ur Random Sodium 10 mmol/L 03/22/24 12:15 Fluid Color Pale yellow 03/24/24 14:00 Fluid Appearance Cloudy 03/24/24 14:00 Fluid Specific Grav 1.010 03/24/24 14:00 Fluid pH 7.5 03/24/24 14:00 Fluid WBC 37 /uL 03/24/24 14:00 Fluid RBC 0 10^3/uL 03/24/24 14:00 Fld Polynuclear WBCs # 0.005 03/24/24 14:00 Fld Polynuclear WBCs % 13.500 % 03/24/24 14:00 Fl Mononucl WBCs #(Auto) 0.032 03/24/24 14:00 Fl Mononuclear % Auto 86.500 % 03/24/24 14:00 Fld Crystal Laterality Peritoneal fluid 03/24/24 14:00 Fluid Glucose 120.0 mg/dL 03/24/24 14:00 Fluid Total Protein 0.7 g/dL 03/24/24 14:00 Fluid Albumin 0.5 g/dL 03/24/24 14:00 Fluid LDH 24 U/L 03/24/24 14:00 Fluid Alk Phosphatase 13 IU/L 03/24/24 14:00 Fluid Cholesterol 17 mg/dL (0-200) 03/24/24 14:00 Fluid Triglycerides 50 mg/dL (0-150) 03/24/24 14:00 Fluid Uric Acid 4 mg/dL 03/24/24 14:00 Coronavirus (PCR) Negative (Negative) 03/22/24 03:39 Influenza A (PCR) Negative (Negative) 03/22/24 03:39 Influenza Type B (PCR) Negative (Negative) 03/22/24 03:39 RSV (PCR) Negative (Negative) 03/22/24 03:39 Vitals Last Vital Signs Temp 98.3 F 03/25/24 08:00 Pulse 92 03/25/24 10:25 Resp 12 03/25/24 10:25 BP 113/64 03/25/24 10:25 Pulse Ox 96 03/25/24 10:25 O2 Del Method Room Air 03/25/24 07:37 Discharge Plan Discharge Patient Disposition: Home Condition: Stable Prescriptions: New furosemide 20 mg Tablet 20 mg PO DAILY@0800 PRN (Reason: Abdominal Distention) Qty: 20 0RF sodium chloride 1,000 mg Tablet,Soluble 1,000 mg PO BID 14 Days Qty: 28 0RF Continued polyethylene glycol 3350 [Miralax] 17 gram Powder In Packet 17 g PO DAILY PRN (Reason: Constipation) ondansetron HCl 4 mg tablet 4 mg PO Q8H PRN (Reason: Nausea And Vomiting) 30 Days Qty: 30 0RF albuterol sulfate [Ventolin HFA] 90 mcg/actuation HFA aerosol inhaler 2 inh inhalation Q6H PRN (Reason: shortness of breath or wheezing) Qty: 6.7 0RF lactulose [Constulose] 10 gram/15 mL solution 15 ml PO BID sucralfate 1 gram Tablet 1 g PO Q12H 30 Days Qty: 60 0RF pantoprazole 40 mg tablet,delayed release (DR/EC) 40 mg PO Q12H 30 Days Qty: 60 0RF hydrocodone-acetaminophen 5-325 mg Tablet 0.5 tab PO PRN PRN (Reason: Pain) melatonin 5 mg Tablet,Chewable 5 mg PO DAILY allopurinol 300 mg Tablet 300 mg PO DAILY midodrine 5 mg tablet 10 mg PO TID metoclopramide HCl 5 mg tablet 5 mg PO BID PRN (Reason: Nausea And Vomiting) rifaximin 550 mg Tablet 550 mg PO BID Asmanex Twisthaler 110 mcg/ actuation (30) Aerosol Powdr Breath Activated 2 inh INHALATION DAILY Rx Instructions: administer 1 hour before bedtime tramadol 50 mg tablet 50 mg PO Q8H PRN (Reason: pain) Qty: 10 0RF Discharge Orders: Discharge Order (Routine); Ordered 03/25/24 Ordered By: Brian Law Referrals: Alia Sanchez MD [Primary Care Provider] - 1 week (Please arrange a follow up with your PCP within 7-10 days. ) Discharge Diet: Regular Discharge Activity: Resume usual activity and Increase activity as tolerated Patient Instructions: Opioid Safety Activity Restrictions/Additional Instructions: Please recheck BMP in 1 week. Take salt tablets twice daily for next 14 days. If you start having abdominal distention take Lasix 20 mg oral daily. You should be on a oral Lasix tablet daily but please confirm with your pediatric neurologist before starting Lasix. Follow-up with a primary care provider within next 1 week. Restrict fluid intake to less than 50 ounces per day. Discharge Attestations Time Spent in Discharge Care*: greater than 30 min Specific Discharge Activities: educating patient, discussing with pcp/other providers, discussing with pillowcase cutter/social workers/dc planners, documenting/other paperwork and evaluating patient/reviewing data Status at Discharge: Cognitive status at discharge: cognitively intact , Behavioral status at discharge: cooperative , Functional status at discharge: uses cane/walker , Overall status at discharge: patient is back to baseline Quality Metrics Clinical Quality Measures [ No reported AMI, CVA or VTE this stay] Coding Level of Care Code 08359 Total time (in minutes) for Discharge: 60 Diagnoses Hyponatremia E87.1 Cardiorenal syndrome I13.10 Cirrhosis K74.60 Dehydration E86.0 Metabolic acidosis E87.20 Hyperbilirubinemia E80.6 Umbilical hernia K42.9 SBP (spontaneous bacterial peritonitis) K65.2 Anemia D64.9
--- NOTE | 2024-03-25 12:49 | PC.NURSE ---
Admit Note Patient admitted to [] from [] via []. Covering service notified. Patient presents with []. Orders reviewed & will continue to monitor. Patient and/or solar sales representative and assessor oriented to environment, equipment, and informed of the following as found in the admission booklet: patient rights & responsibilities, visitor policy, hand and respiratory hygiene practice. Other education includes: []. Patient and/or solar sales representative and assessor [ResponseToTeaching].
--- NOTE | 2024-03-25 13:01 | PC.NURSE ---
Discharge Note Patient discharged to home via POV accompanied by family. Discharge instructions reviewed with patient and/or hobbies and crafts sales representative. Mobile pharmacy medications and/or prescriptions provided. Belongings/home medications returned.
[2024-03-25 14:25] LABS: Osmolality Urine 417 mOsm/kg (50-1200)
[2024-03-27 12:44] LABS: Estimated GFR (Cystatin C) 22 (> OR = 60)
[2024-03-31 20:05] LABS: Amylase, Peritoneal Fluid <10 U/L
== END 2024-03-25 13:02 | disposition home or self-care (01) | DRG 682 ==
LOC: ER 10:39 → CSU 19:42
PROVIDERS: Emergency Medicine; Admitting Provider Internal Medicine; Emergency Provider Emergency Medicine; PCP Family Medicine; Visit Provider Student in an Organized Health Care Education/Training Program
DX: N17.9 Acute kidney failure, unspecified (principal); K76.7 Hepatorenal syndrome; E87.1 Hypo-osmolality and hyponatremia; R18.8 Other ascites; E87.20 Acidosis, unspecified; K72.10 Chronic hepatic failure without coma; E86.0 Dehydration; E80.6 Other disorders of bilirubin metabolism; K42.9 Umbilical hernia without obstruction or gangrene; D63.1 Anemia in chronic kidney disease; I95.9 Hypotension, unspecified; E86.1 Hypovolemia; Z79.891 Long term (current) use of opiate analgesic; Z87.891 Personal history of nicotine dependence; Z86.0100 Personal history of colon polyps, unspecified; I12.9 Hypertensive chronic kidney disease with stage 1 through stage 4 chronic kidney disease, or unspecified chronic kidney disease; N18.9 Chronic kidney disease, unspecified
CPT/HCPCS: 36415; 49083; 80048; 80053; 80503; 81001; 82042; 82150; 82465; 82610; 82945; 83615; 83735; 83930; 83935; 83986; 84075; 84100; 84145; 84157; 84295; 84300; 84315; 84443; 84478; 84560; 85025; 85610; 87015; 87040; 87070; 87075; 87116; 87205; 87206; 87637; 87801; 88112; 88305; 89050; 96361; 96372; 96374; 96375; 96376; 99285; J0696; J0780; J1644; J2270; J2405; J7030; J8597; P9046

== ENCOUNTER 2024-03-31 11:14 | Day surgery (SDC) | payer OTHER, SELFPAY ==
[2024-03-31 11:38] VITALS: BP 107/72; PULSE 107; RESP 18; TEMP 36.2; O2SAT 100; BMI 25.0
--- NOTE | 2024-03-31 12:10 | US_ITS ---
WS: [id number] ULTRASOUND-GUIDED THERAPEUTIC AND DIAGNOSTIC PARACENTESIS Procedure, risks, and complications have been explained to the patient. Consent is obtained. Utilizing aseptic technique and 1% buffered lidocaine, a small dermatome was made through which a 5 [place] Yueh catheter was inserted. Approximately 7450 ml of clear peritoneal fluid was obtained without difficulty. No complications encountered. Specimen collected for analysis. US/US paracentesis abd w [id number] IMPRESSION: Uncomplicated paracentesis yielding 7450 ml of peritoneal fluid.
[2024-03-31] MEDS: albumin 25 G/100 ML BAG 60 G IV (13:04)
[2024-03-31 13:05] LABS: Mononuclear #, Pertinoneal Fl 0.046 10^3/uL; Polynuclear # Cells, Perit 0.008 10^3/uL; RBC Pertioneal Fluid 5 10^3/uL; WBC Peritoneal Fluid 54 /uL
[2024-03-31 13:21] LABS: INR 1.07 (0.8-1.2)
[2024-03-31 13:21] LABS: Appearance, Peritoneal Fluid Hazy (Clear); Color, Peritoneal Fluid Yellow (Pale Yellow); Cyto Order Verification No Order
[2024-03-31 13:22] LABS: Pathology Referral Yes
[2024-03-31 13:28] LABS: Alanine Aminotransferase 48 U/L (0-41); Albumin Level 4.6 g/dL (3.5-5.2); Alkaline Phosphatase 203 U/L (40-130); Anion Gap 21.5 (5-19); Aspartate Amino Transferase 70 U/L (0-40); Blood Urea Nitrogen 49 mg/dL (6-20); Carbon Dioxide 17 mmol/L (22-29); Chloride 90 mmol/L (98-107); Creatinine Clr Calc Pharmacy 30.9335; Globulin 2.9 g/dL (1.3-4.6); Glomerular Filtration Rate 23.2 mL/min (90-130); Glucose 123 mg/dL (65-115); Osmolality Calculated 274 mOsm/kg (285-295); Potassium 3.5 mmol/L (3.5-5.1); Sodium 125 mmol/L (136-145); Total Bilirubin 3.2 mg/dL (0.15-1.2); Total Protein 7.5 g/dL (6.6-8.7)
[2024-04-02 11:50] LABS: Cystatin C 3.69 mg/L (0.52-1.27); Estimated GFR (Cystatin C) 14 (> OR = 60)
== END 2024-03-31 13:50 | disposition home or self-care (01) ==
PROVIDERS: Internal Medicine Gastroenterology; Radiology Diagnostic Radiology; PCP Family Medicine
PROC: (CPT 49082; principal; 2024-03-31 12:30)
DX: R18.8 Other ascites (principal)
CPT/HCPCS: 36415; 49083; 80053; 80503; 82610; 85610; 87070; 87075; 87205; 89050; 96365; P9046

== ENCOUNTER 2024-04-01 11:30 | Outpatient (CLI) | payer OTHER, SELFPAY ==
[2024-04-01 12:16] LABS: Basophils % 0.4 %; Eosinophils # 0.3 10^3/uL (0.0-0.8); Eosinophils % 2.7 %; Hematocrit 25.9 % (37-53); Lymphocytes # 0.5 10^3/uL (0.8-4.8); Lymphocytes % 5.2 %; Mean Corpuscular HGB Conc 37.1 g/dL (30-55); Mean Platelet Volume 10.4 fL (7.4-10.4); Monocytes # 1.4 10^3/uL (0.2-0.9); Monocytes % 14.9 %; Neutrophils # 6.92 10^3/uL (1.8-7.7); Nucleated Red Blood Cells % 0 %; Platelet Count 105 10^3/cmm (157-399); Red Blood Count 2.67 10^6/uL (3.85-5.65); Red Cell Distribution Width 21.3 % (12.1-15.1); White Blood Count 9.11 10^3/uL (3.29-11.43)
[2024-04-01 12:32] LABS: INR 1.22 (0.8-1.2)
[2024-04-01 12:35] LABS: Alanine Aminotransferase 44 U/L (0-41); Albumin Level 4.2 g/dL (3.5-5.2); Alkaline Phosphatase 169 U/L (40-130); Anion Gap 19.8 (5-19); Aspartate Amino Transferase 68 U/L (0-40); Blood Urea Nitrogen 46 mg/dL (6-20); Calcium 9.1 mg/dL (8.5-10.5); Carbon Dioxide 18 mmol/L (22-29); Chloride 91 mmol/L (98-107); Globulin 2.2 g/dL (1.3-4.6); Glomerular Filtration Rate 21.5 mL/min (90-130); Glucose 127 mg/dL (65-115); Osmolality Calculated 273 mOsm/kg (285-295); Potassium 3.8 mmol/L (3.5-5.1); Sodium 125 mmol/L (136-145); Total Bilirubin 2.4 mg/dL (0.15-1.2); Total Protein 6.4 g/dL (6.6-8.7)
== END 2024-04-01 11:31 | disposition home or self-care (01) ==
LOC: RAD 11:37
PROVIDERS: PCP Family Medicine; Visit Provider Internal Medicine Gastroenterology
DX: K70.9 Alcoholic liver disease, unspecified (principal); K76.7 Hepatorenal syndrome
CPT/HCPCS: 36415; 80053; 85025; 85610

== ENCOUNTER 2024-04-03 12:03 | Outpatient (CLI) | payer OTHER, SELFPAY ==
[2024-04-03 13:17] LABS: INR 1.17 (0.8-1.2)
[2024-04-03 13:25] LABS: Alanine Aminotransferase 43 U/L (0-41); Albumin Level 4.2 g/dL (3.5-5.2); Alkaline Phosphatase 203 U/L (40-130); Aspartate Amino Transferase 68 U/L (0-40); Blood Urea Nitrogen 58 mg/dL (6-20); Calcium 9.2 mg/dL (8.5-10.5); Carbon Dioxide 16 mmol/L (22-29); Chloride 86 mmol/L (98-107); Globulin 2.6 g/dL (1.3-4.6); Glucose 109 mg/dL (65-115); Osmolality Calculated 269 mOsm/kg (285-295); Sodium 121 mmol/L (136-145); Total Bilirubin 2.2 mg/dL (0.15-1.2); Total Protein 6.8 g/dL (6.6-8.7)
[2024-04-03 13:39] LABS: Anion Gap 23.1 (5-19); Potassium 4.1 mmol/L (3.5-5.1)
== END 2024-04-03 12:04 | disposition home or self-care (01) ==
LOC: LAB 12:13
PROVIDERS: PCP Family Medicine; Visit Provider Internal Medicine Gastroenterology
DX: K70.9 Alcoholic liver disease, unspecified (principal)
CPT/HCPCS: 80053; 85610

== ENCOUNTER 2024-04-03 17:37 | Inpatient (IN) | payer OTHER, SELFPAY ==
[2024-04-03] VITALS (9 sets, daily range): BP systolic 101–115; BP diastolic 57–69; PULSE 91–112; RESP 15–23; TEMP 36.5–37.3; O2SAT 98–100
--- NOTE | 2024-04-03 17:51 | ECG_ITS ---
[facility] Date: 2024-04-03 Pat Name: Chase Rivero Department: Room: EDIP Gender: Male Web Site Specialist: : 1975 Requested By: Garth Howell Order Number: [id number] Reading MD: VLADIMIR GARAY Measurements Intervals [place] Rate: 101 P: 34 [place]: 151 QRS: -48 QRSD: 94 T: 58 QT: 344 QTc: 446 Interpretive Statements SINUS TACHYCARDIA LEFT AXIS DEVIATION [QRS AXIS < -30] PATTERN CONSISTENT WITH PULMONARY DISEASE Compared to ECG 03/15/2024 22:43:36 Sinus rhythm no longer present Electronically Signed On 04-05-2024 19:34:39 WIDE AREA NETWORK ADMINISTRATOR by VLADIMIR GARAY [email or web address]
--- NOTE | 2024-04-03 18:06 | W.ED.RECABL ---
HPI - Recheck/Abnormal Lab/Rx General: Chief Complaint: Recheck/Abnormal Lab/Rx Stated Complaint: kimberlyn bullock sent to er Time Seen by Provider: 04/03/24 18:04 History of Present Illness: Patient was sent in today by his dry cell tester in [place] for sodium 121. He brought paperwork with him that he wanted to be worked up for infection, given albumin and try to get his sodium up, Patient's only complaint is that he feels weaker than normal. Patient was just inpatient and discharged at the beginning of March, he come in for outpatient paracentesis on March 31. Where they pulled approximately 7450 mL of clear peritoneal fluid off without difficulty. Related Data Home Medications ?Medication ?Instructions ?Recorded ?Confirmed allopurinol 300 mg tablet 300 mg PO DAILY 06/29/23 04/04/24 mometasone 110 mcg/actuation(30 2 inh inhalation DAILY 01/31/24 04/04/24 doses) breath activated powder inhaler (Asmanex Sutures Indiahaler) metoclopramide HCl 5 mg tablet 5 mg PO BID PRN Nausea And Vomiting 02/06/24 04/04/24 midodrine 5 mg tablet 10 mg PO TID 02/06/24 04/04/24 rifaximin 550 mg tablet 550 mg PO BID 02/06/24 04/04/24 lactulose 10 gram/15 mL oral 15 ml PO BID PRN Stomach Upset 02/29/24 04/04/24 solution (Constulose) sucralfate 1 gram tablet 1 g PO BID 04/04/24 04/04/24 Previous Rx's ?Medication ?Instructions ?Recorded ondansetron HCl 4 mg tablet 4 mg PO Q8H PRN Nausea And 01/02/24 Vomiting 30 days #30 tabs albuterol sulfate 90 mcg/actuation 2 inh inhalation Q6H PRN shortness 01/08/24 aerosol inhaler (Ventolin HFA) of breath or wheezing #6.7 grams tramadol 50 mg tablet 50 mg PO Q8H PRN pain #10 tabs 02/02/24 pantoprazole 40 mg tablet,delayed 40 mg PO Q12H 30 days #60 tabs 03/04/24 release Allergies Allergy/AdvReac Type Severity Reaction Status Date / Time No Known Allergies Allergy Verified 04/04/24 10:34 Review of Systems General: Reports: 10 or more systems reviewed and unremarkable except in HPI and below PFSH ED PFSH: Medical History (Updated 04/04/24 @ 16:52 by Reagan Wu MD) SBP (spontaneous bacterial peritonitis) Acute hepatic failure Abdominal ascites Smoker Colitis Low oxygen saturation Enteropathy Smoking addiction Alcohol use disorder Thrombocytopenia Liver cirrhosis Hematuria Ascites due to alcoholic cirrhosis Abdominal pain 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 History of colon polyps Rectal polyp 10 and 15 cm, cecum biopsy Sigmoid colon polyp Seasonal allergies Splenomegaly Enterocolitis 2016 Surgical History Status post colonoscopy with polypectomy H/O esophagogastroduodenoscopy Vasectomy status H/O left inguinal hernia repair Family History Denies family history of Cancer Social History Smoking and tobacco/nicotine status: former use of tobacco/nicotine Alcohol intake: former Substance/Drug Use: never Lives independently: Yes Housing: House Marital status: Current occupation: [employer] Physical Exam Const: COMMON NORMALS: no acute distress, average body habitus, patient oriented x3, no limitations, healthy appearing, alert and well nourished HENMT: COMMON NORMALS: normocephalic, atraumatic, hearing grossly normal bilaterally, external ears normal, Normal external nose present, moist oral mucous membranes and oropharynx normal HEAD & SCALP: normocephalic and atraumatic NOSE: Normal external nose present EXTERNAL EAR: Yes external ears normal Neck/C-Spine: COMMON NORMALS: no JVD Chest: COMMONS NORMALS: normal inspection of the chest and normal palpation of entire chest wall Resp: COMMON NORMALS: normal respiratory effort, No retractions, No use of accessory muscles and clear to auscultation bilaterally AUSCULTATION: clear to auscultation bilaterally Cardio: COMMON NORMALS: no JVD, regular rate, regular rhythm, S1 normal heart sound present, S2 normal heart sound present, No gallops present (Cardio), No clicks present (Cardio) and No rub (Cardio) RATE: regular rate RHYTHM: regular rhythm HEART SOUNDS: S1 normal heart sound present and S2 normal heart sound present GI: COMMON NORMALS: Soft to palpation PALPATION: Yes Soft to palpation and Yes Tenderness to palpation present (GI) OTHER: Soft distended Neuro: COMMON NORMALS: patient oriented x3 SENSORIUM/ORIENTATION: Yes alert Course Vital Signs: Vital signs: Vital Signs Temperature 97.4 F L 04/07/24 16:17 Pulse Rate 100 04/07/24 16:17 Respiratory Rate 18 04/07/24 16:17 Blood Pressure 111/73 04/07/24 16:17 Pulse Oximetry 96 04/07/24 16:17 Oxygen Delivery Me thod Room Air 04/07/24 16:17 MDM - Recheck/Abnormal Lab/Rx Medical Decision Making Lab work was reviewed, sodium 121, BUN/creatinine 65 and 3.2, discussed case with Dr. Mcginnis we will place him in observation for further evaluation and treatment. Lab Data 04/03/24 19:03 04/07/24 10:17 Radiology Impressions Abdomen Ultrasound 04/07/24 14:50 IMPRESSION: See above Laboratory Results WBC 10.34 10^3/uL (3.29-11.43) 04/03/24 19:03 RBC 2.66 10^6/uL (3.85-5.65) L 04/03/24 19:03 Hgb 9.70 g/dL (11.27-16.99) L 04/03/24 19:03 Hct 26.0 % (37-53) L 04/03/24 19:03 MCV 97.7 fl (82-101) 04/03/24 19:03 MCH 36.5 pg (27-33) H 04/03/24 19:03 MCHC 37.3 g/dL (30-55) 04/03/24 19:03 RDW 21.3 % (12.1-15.1) H 04/03/24 19:03 Plt Count 97 10^3/cmm (157-399) L 04/03/24 19:03 MPV 11.3 fL (7.4-10.4) H 04/03/24 19:03 Neut % (Auto) 77.0 % 04/03/24 19:03 Lymph % (Auto) 4.4 % 04/03/24 19:03 [place] % (Auto) 15.2 % 04/03/24 19:03 Eos % (Auto) 2.3 % 04/03/24 19:03 Baso % (Auto) 0.4 % 04/03/24 19:03 Neut # (Auto) 7.96 10^3/uL (1.8-7.7) H 04/03/24 19:03 Lymph # (Auto) 0.5 10^3/uL (0.8-4.8) L 04/03/24 19:03 [place] # (Auto) 1.6 10^3/uL (0.2-0.9) H 04/03/24 19:03 Eos # (Auto) 0.2 10^3/uL (0.0-0.8) 04/03/24 19:03 Baso # (Auto) 0.0 10^3/uL (0.0-0.1) 04/03/24 19:03 Nucleated RBC % (auto) 0 % 04/03/24 19:03 Nucleated RBCs # 0.0 /100WBC 04/03/24 19:03 PT 16.40 SECONDS (12.1-14.9) H 04/03/24 19:03 INR 1.23 (0.8-1.2) H 04/03/24 19:03 Sodium 127 mmol/L (136-145) L 04/05/24 09:03 Potassium 3.4 mmol/L (3.5-5.1) L 04/05/24 09:03 Chloride 93 mmol/L (98-107) L 04/05/24 09:03 Carbon Dioxide 17 mmol/L (22-29) L 04/05/24 09:03 Anion Gap 20.4 (5-19) H 04/05/24 09:03 BUN 58 mg/dL (6-20) H 04/05/24 09:03 Creatinine 3.2 mg/dL (0.7-1.2) H 04/05/24 09:03 GFR Calculation 20.7 mL/min (90-130) L 04/05/24 09:03 Glucose 127 mg/dL (65-115) H 04/05/24 09:03 Calculated Osmolality 282 mOsm/kg (285-295) L 04/05/24 09:03 Lactic Acid 2.7 mmol/L (0.5-2.2) H 04/03/24 19:03 Lactic Acid (Sepsis) 2.5 mmol/L (0.5-2.2) H 04/03/24 21:50 Uric Acid 3.7 mg/dL (3.4-7.0) 04/05/24 09:03 Calcium 8.8 mg/dL (8.5-10.5) 04/05/24 09:03 Magnesium 2.3 mg/dL (1.7-2.3) 04/03/24 19:03 Total Bilirubin 2.5 mg/dL (0.15-1.2) H 04/04/24 06:14 AST 52 U/L (0-40) H 04/04/24 06:14 ALT 33 U/L (0-41) 04/04/24 06:14 Alkaline Phosphatase 130 U/L (40-130) 04/04/24 06:14 Total Protein 6.3 g/dL (6.6-8.7) L 04/04/24 06:14 Albumin 4.3 g/dL (3.5-5.2) 04/04/24 06:14 Globulin 2.0 g/dL (1.3-4.6) 04/04/24 06:14 Procalcitonin 0.66 ng/mL (0-0.5) H 04/03/24 19:03 Urine Color Yellow (Yellow) 04/03/24 20: Urine Appearance Clear (CLEAR) 04/03/24 20: Urine pH 5.5 (5-7) 04/03/24 20: Ur Specific [place] 1.015 (1.005-1.030) 04/03/24 20: Urine Protein Negative (Negative) 04/03/24 20: Urine Glucose (UA) Negative (Normal) 04/03/24 20: Urine Ketones Negative (Negative) 04/03/24 20: Urine Blood Negative (Negative) 04/03/24 20: Urine Nitrate Negative (Negative) 04/03/24 20: Urine Bilirubin Negative (Negative) 04/03/24 20: Urine Urobilinogen 0.2 mg/dL (Negative) 04/03/24 20:26 Ur Leukocyte Esterase Negative (Negative) 04/03/24 20: Urine RBC 0-2 /hpf (0-2) 04/03/24 20:26 Urine WBC 0-5 /hpf (0-5) 04/03/24 20:26 Ur Squamous Epith Cells 0-5 /hpf (0-5) 04/03/24 20:26 Amorphous Sediment Not Reportable 04/03/24 20:26 Urine Bacteria None seen /hpf (NONE) 04/03/24 20:26 Hyaline Casts 4.95 /lpf 04/03/24 20:26 Ur Random Sodium 10 mmol/L 04/04/24 10:40 Ur Random Potassium 14 mmol/L 04/04/24 04:10 Ur Random Chloride < 10 mmol/L 04/04/24 04:10 Coronavirus (PCR) Negative (Negative) 04/03/24 18:17 Influenza A (PCR) Negative (Negative) 04/03/24 18:17 Influenza Type B (PCR) Negative (Negative) 04/03/24 18:17 RSV (PCR) Negative (Negative) 04/03/24 18:17 All radiology interpretation(s) finalized by discharge Discharge Plan Discharge Patient Disposition: Placed in Observation Admit Provider: Jamir Mcginnis Clinical Impression: Acute hyponatremia, Hepatorenal syndrome Discharge Diet: Regular Discharge Activity: Increase activity as tolerated Coding Level of Care Code ED Tube And Rod Straightener for Jess López
[2024-04-03 19:16] LABS: Basophils % 0.4 %; Eosinophils # 0.2 10^3/uL (0.0-0.8); Eosinophils % 2.3 %; Lymphocytes # 0.5 10^3/uL (0.8-4.8); Lymphocytes % 4.4 %; Mean Corpuscular HGB Conc 37.3 g/dL (30-55); Mean Corpuscular Hemoglobin 36.5 pg (27-33); Mean Corpuscular Volume 97.7 fl (82-101); Mean Platelet Volume 11.3 fL (7.4-10.4); Monocytes # 1.6 10^3/uL (0.2-0.9); Monocytes % 15.2 %; Neutrophils # 7.96 10^3/uL (1.8-7.7); Nucleated Red Blood Cells % 0 %; Platelet Count 97 10^3/cmm (157-399); Red Blood Count 2.66 10^6/uL (3.85-5.65); Red Cell Distribution Width 21.3 % (12.1-15.1); White Blood Count 10.34 10^3/uL (3.29-11.43)
[2024-04-03 19:21] LABS: Influenza A NEGATIVE (Negative); Influenza B NEGATIVE (Negative); Respiratory Syncytial Virus Ce NEGATIVE (Negative); SARS-CoV-2 PCR NEGATIVE (Negative)
[2024-04-03 19:29] LABS: INR 1.23 (0.8-1.2)
[2024-04-03 19:34] LABS: Alanine Aminotransferase 42 U/L (0-41); Albumin Level 4.1 g/dL (3.5-5.2); Alkaline Phosphatase 180 U/L (40-130); Aspartate Amino Transferase 61 U/L (0-40); Blood Urea Nitrogen 65 mg/dL (6-20); Calcium 9.1 mg/dL (8.5-10.5); Carbon Dioxide 16 mmol/L (22-29); Chloride 90 mmol/L (98-107); Creatinine Clr Calc Pharmacy 25.5253; Glomerular Filtration Rate 20.7 mL/min (90-130); Glucose 116 mg/dL (65-115); Magnesium 2.3 mg/dL (1.7-2.3); Osmolality Calculated 272 mOsm/kg (285-295); Sodium 121 mmol/L (136-145); Total Bilirubin 1.9 mg/dL (0.15-1.2); Total Protein 6.1 g/dL (6.6-8.7)
[2024-04-03 19:35] LABS: Lactic Sepsis W/Reflex 2.7 mmol/L (0.5-2.2)
[2024-04-03 19:41] LABS: Procalcitonin 0.66 ng/mL (0-0.5)
[2024-04-03 20:33] LABS: Bilirubin Urine Negative (Negative); Blood Urine Negative (Negative); Glucose Urine UA Negative (Normal); Ketones Urine Negative (Negative); Leukocyte Esterase Urine Negative (Negative); Nitrate Urine Negative (Negative); Protein Urine Negative (Negative); Specific Gravity, Urine 1.015 (1.005-1.030); Urine Appearance Clear (CLEAR); Urine Color Yellow (Yellow); Urobilinogen Urine 0.2 mg/dL (Negative); pH Urine 5.5 (5-7)
[2024-04-03 20:35] LABS: Add Urine Microscopic? YES; Bacteria Urine None Seen /hpf; Hyaline Casts Urine 4.95 /lpf; RBC Urine 0-2 /hpf (0-2); Squamous Epithelial Cell Urine 0-5 /hpf (0-5); WBC Urine 0-5 /hpf (0-5)
[2024-04-03 20:59] LABS: Reflex Lactate Order REFLEX LACTIC ORDERD
--- NOTE | 2024-04-03 21:34 | PM.HP ---
Providers/Chief Complaint Primary Care Provider: Alia Sanchez MD Chief Complaint: kimberlyn called parvin bullock sent to er History of Present Illness Chase Rivero is a 48 year old male Review of Systems Narrative: Reviewed Medications/Allergies Home Medications ?Medication ?Instructions ?Recorded ?Confirmed ?Last Taken ?Type allopurinol 300 mg tablet 300 mg PO DAILY 06/29/23 03/28/24 03/21/24 History polyethylene glycol 3350 17 gram 17 g PO DAILY PRN Constipation 12/29/23 03/28/24 03/14/24 History oral powder packet (Miralax) ondansetron HCl 4 mg tablet 4 mg PO Q8H PRN Nausea And 01/02/24 03/28/24 03/09/24 Rx Vomiting 30 days #30 tabs albuterol sulfate 90 mcg/actuation 2 inh inhalation Q6H PRN shortness 01/08/24 03/28/24 03/14/24 Rx aerosol inhaler (Ventolin HFA) of breath or wheezing #6.7 grams mometasone 110 mcg/actuation(30 2 inh inhalation DAILY 01/31/24 03/28/24 03/21/24 History doses) breath activated powder inhaler (Asmanex Twisthaler) tramadol 50 mg tablet 50 mg PO Q8H PRN pain #10 tabs 02/02/24 03/28/24 03/09/24 Rx metoclopramide HCl 5 mg tablet 5 mg PO BID PRN Nausea And Vomiting 02/06/24 03/28/24 03/10/24 History midodrine 5 mg tablet 10 mg PO TID 02/06/24 03/28/24 03/21/24 19:00 History rifaximin 550 mg tablet 550 mg PO BID 02/06/24 03/28/24 03/21/24 20:00 History lactulose 10 gram/15 mL oral 15 ml PO BID 02/29/24 03/28/24 03/17/24 History solution (Constulose) pantoprazole 40 mg tablet,delayed 40 mg PO Q12H 30 days #60 tabs 03/04/24 03/28/24 03/21/24 Rx release hydrocodone 5 mg-acetaminophen 325 0.5 tab PO PRN PRN Pain 03/22/24 03/28/24 03/21/24 21:00 History mg tablet melatonin 5 mg chewable tablet 5 mg PO DAILY sleep 03/22/24 03/28/24 Unknown History furosemide 20 mg tablet 20 mg PO DAILY@0800 PRN Abdominal 03/25/24 03/28/24 Unknown Rx Distention #20 tabs sodium chloride 1,000 mg soluble 1,000 mg PO BID 14 days #28 tabs 03/25/24 03/28/24 Unknown Rx tablet Allergies Allergy/AdvReac Type Severity Reaction Status Date / Time No Known Allergies Allergy Verified 03/28/24 08:17 PFSH Acute PFSH: Medical History SBP (spontaneous bacterial peritonitis) Acute hepatic failure Abdominal ascites Smoker Colitis Low oxygen saturation Enteropathy Smoking addiction Alcohol use disorder Thrombocytopenia Liver cirrhosis Hematuria Ascites due to alcoholic cirrhosis Abdominal pain 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 History of colon polyps Rectal polyp 10 and 15 cm, cecum biopsy Sigmoid colon polyp Seasonal allergies Splenomegaly Enterocolitis 2016 Surgical History Status post colonoscopy with polypectomy H/O esophagogastroduodenoscopy Vasectomy status H/O left inguinal hernia repair Family History Denies family history of Cancer Social History Smoking and tobacco/nicotine status: former use of tobacco/nicotine Alcohol intake: former Substance/Drug Use: never Lives independently: Yes Housing: House Marital status: 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
--- NOTE | 2024-04-03 21:48 | PM.CONSULT ---
Providers/Reason For Consult Attending Physician: Jamir Mcginnis MD Primary Care Provider: Alia Sanchez MD History of Present Illness History of Present Illness Chase Rivero is a 48 year old male Medications/Allergies Home Medications ?Medication ?Instructions ?Recorded ?Confirmed ?Last Taken ?Type allopurinol 300 mg tablet 300 mg PO DAILY 06/29/23 03/28/24 03/21/24 History polyethylene glycol 3350 17 gram 17 g PO DAILY PRN Constipation 12/29/23 03/28/24 03/14/24 History oral powder packet (Miralax) ondansetron HCl 4 mg tablet 4 mg PO Q8H PRN Nausea And 01/02/24 03/28/24 03/09/24 Rx Vomiting 30 days #30 tabs albuterol sulfate 90 mcg/actuation 2 inh inhalation Q6H PRN shortness 01/08/24 03/28/24 03/14/24 Rx aerosol inhaler (Ventolin HFA) of breath or wheezing #6.7 grams mometasone 110 mcg/actuation(30 2 inh inhalation DAILY 01/31/24 03/28/24 03/21/24 History doses) breath activated powder inhaler (Asmanex Twisthaler) tramadol 50 mg tablet 50 mg PO Q8H PRN pain #10 tabs 02/02/24 03/28/24 03/09/24 Rx metoclopramide HCl 5 mg tablet 5 mg PO BID PRN Nausea And Vomiting 02/06/24 03/28/24 03/10/24 History midodrine 5 mg tablet 10 mg PO TID 02/06/24 03/28/24 03/21/24 19:00 History rifaximin 550 mg tablet 550 mg PO BID 02/06/24 03/28/24 03/21/24 20:00 History lactulose 10 gram/15 mL oral 15 ml PO BID 02/29/24 03/28/24 03/17/24 History solution (Constulose) pantoprazole 40 mg tablet,delayed 40 mg PO Q12H 30 days #60 tabs 03/04/24 03/28/24 03/21/24 Rx release hydrocodone 5 mg-acetaminophen 325 0.5 tab PO PRN PRN Pain 03/22/24 03/28/24 03/21/24 21:00 History mg tablet melatonin 5 mg chewable tablet 5 mg PO DAILY sleep 03/22/24 03/28/24 Unknown History furosemide 20 mg tablet 20 mg PO DAILY@0800 PRN Abdominal 03/25/24 03/28/24 Unknown Rx Distention #20 tabs sodium chloride 1,000 mg soluble 1,000 mg PO BID 14 days #28 tabs 03/25/24 03/28/24 Unknown Rx tablet Allergies Allergy/AdvReac Type Severity Reaction Status Date / Time No Known Allergies Allergy Verified 03/28/24 08:17 PFSH Acute PFSH: Medical History SBP (spontaneous bacterial peritonitis) Acute hepatic failure Abdominal ascites Smoker Colitis Low oxygen saturation Enteropathy Smoking addiction Alcohol use disorder Thrombocytopenia Liver cirrhosis Hematuria Ascites due to alcoholic cirrhosis Abdominal pain 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 History of colon polyps Rectal polyp 10 and 15 cm, cecum biopsy Sigmoid colon polyp Seasonal allergies Splenomegaly Enterocolitis 2016 Surgical History Status post colonoscopy with polypectomy H/O esophagogastroduodenoscopy Vasectomy status H/O left inguinal hernia repair Family History Denies family history of Cancer Social History Smoking and tobacco/nicotine status: former use of tobacco/nicotine Alcohol intake: former Substance/Drug Use: never Lives independently: Yes Housing: House 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
[2024-04-03 22:13] LABS: Lactic Acid level (Lactate) 2.5 mmol/L (0.5-2.2)
[2024-04-03] MEDS: sodium chloride 3% 100 ML in empty flexible container 1 EACH 200 ML IV (22:37)
[2024-04-03] MEDS: albumin 37.5 GM/150 ML VIAL IV (23:32)
[2024-04-04] VITALS (53 sets, daily range): BP systolic 90–114; BP diastolic 48–74; PULSE 77–102; RESP 13–26; TEMP 36.5–36.9; O2SAT 94–100
[2024-04-04 00:17] LABS: Sodium 123 mmol/L (136-145)
--- NOTE | 2024-04-04 01:19 | PM.HP ---
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 Patient was found of a sodium of 121 earlier today. Repeat labs showed persistent sodium of 121. He has had multiple recurrent similar presentations and most recently discharged on March 25 after being admitted for hyponatremia. Patient was treated with 3% saline infusion in ED and albumin. Repeat sodium showed 123. Review of Systems Narrative: A complete review of systems was obtained and is negative except as stated in HPI. Medications/Allergies Home Medications ?Medication ?Instructions ?Recorded ?Confirmed ?Last Taken ?Type allopurinol 300 mg tablet 300 mg PO DAILY 06/29/23 03/28/24 03/21/24 History polyethylene glycol 3350 17 gram 17 g PO DAILY PRN Constipation 12/29/23 03/28/24 03/14/24 History oral powder packet (Miralax) ondansetron HCl 4 mg tablet 4 mg PO Q8H PRN Nausea And 01/02/24 03/28/24 03/09/24 Rx Vomiting 30 days #30 tabs albuterol sulfate 90 mcg/actuation 2 inh inhalation Q6H PRN shortness 01/08/24 03/28/24 03/14/24 Rx aerosol inhaler (Ventolin HFA) of breath or wheezing #6.7 grams mometasone 110 mcg/actuation(30 2 inh inhalation DAILY 01/31/24 03/28/24 03/21/24 History doses) breath activated powder inhaler (Asmanex Twisthaler) tramadol 50 mg tablet 50 mg PO Q8H PRN pain #10 tabs 02/02/24 03/28/24 03/09/24 Rx metoclopramide HCl 5 mg tablet 5 mg PO BID PRN Nausea And Vomiting 02/06/24 03/28/24 03/10/24 History midodrine 5 mg tablet 10 mg PO TID 02/06/24 03/28/24 03/21/24 19:00 History rifaximin 550 mg tablet 550 mg PO BID 02/06/24 03/28/24 03/21/24 20:00 History lactulose 10 gram/15 mL oral 15 ml PO BID 02/29/24 03/28/24 03/17/24 History solution (Constulose) pantoprazole 40 mg tablet,delayed 40 mg PO Q12H 30 days #60 tabs 03/04/24 03/28/24 03/21/24 Rx release hydrocodone 5 mg-acetaminophen 325 0.5 tab PO PRN PRN Pain 03/22/24 03/28/24 03/21/24 21:00 History mg tablet melatonin 5 mg chewable tablet 5 mg PO DAILY sleep 03/22/24 03/28/24 Unknown History furosemide 20 mg tablet 20 mg PO DAILY@0800 PRN Abdominal 03/25/24 03/28/24 Unknown Rx Distention #20 tabs sodium chloride 1,000 mg soluble 1,000 mg PO BID 14 days #28 tabs 03/25/24 03/28/24 Unknown Rx tablet Allergies Allergy/AdvReac Type Severity Reaction Status Date / Time No Known Allergies Allergy Verified 03/28/24 08:17 PFSH Acute PFSH: Medical History SBP (spontaneous bacterial peritonitis) Acute hepatic failure Abdominal ascites Smoker Colitis Low oxygen saturation Enteropathy Smoking addiction Alcohol use disorder Thrombocytopenia Liver cirrhosis Hematuria Ascites due to alcoholic cirrhosis Abdominal pain 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 History of colon polyps Rectal polyp 10 and 15 cm, cecum biopsy Sigmoid colon polyp Seasonal allergies Splenomegaly Enterocolitis 2016 Surgical History Status post colonoscopy with polypectomy H/O esophagogastroduodenoscopy Vasectomy status H/O left inguinal hernia repair Family History Denies family history of Cancer Social History Smoking and tobacco/nicotine status: former use of tobacco/nicotine Alcohol intake: former Substance/Drug Use: never Lives independently: Yes Housing: House 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 In bed. Head: Atraumatic. Temporal wasting. Icteric sclera. Neck: No JVD. Cardiovascular: RRR. Blood pressure soft. Lungs: Symmetric chest rise. No respiratory distress. Breathing room air. Skin: Diffuse jaundice. Abdomen: Abdomen is mildly to moderately distended. Extremities: No cyanosis or clubbing. Musculoskeletal: No erythematous joints. Neurological: Moves all 4 extremities. No myoclonus. Data 04/03/24 19:03 04/03/24 23:36 Micro: Microbiology 04/03/24 19:07 Blood Culture - Preliminary Blood SPECIMEN COLLECTED 04/03/24 19:03 Blood Culture - Preliminary Blood SPECIMEN COLLECTED A&P Assessment and plan (1) Acute hyponatremia: Acute on chronic hyponatremia in the setting of liver disease Sodium from 121->123; continue trending Patient needs further restriction of free water N.p.o. until sodium level improves Increase salt tabs to 2 g 3 times daily Trend levels (2) Alcoholic cirrhosis of liver: End-stage alcoholic liver cirrhosis Follows at [facility] for transplant (3) Hepatorenal syndrome: Hepatorenal syndrome Creatinine at recent baseline Patient reports he is on the liver-kidney transplant last Renally dose medications Avoid nephrotoxins (4) Chronic kidney disease: Management of kidney disease as above (5) Thrombocytopenia: Thrombocytopenia secondary liver disease Platelets at baseline Monitor for bleeding SCDs for DVT prophylaxis (6) Chronic hypotension: Continue home midodrine (7) Esophageal varices: Not on beta-dimas, hemodynamics would not allow Continue PPI Plan DVT prophylaxis: SCD PDMP PDMP Reviewed: Not Reviewed Attestations Medical Necessity Statement*: Patient presents with abnormal labs sodium of 121 with expected hospitalization not to cross 2 midnights for management of hyponatremia. Coding Level of Care Code Acute Code for [facility] Diagnoses Acute hyponatremia E87.1 Alcoholic cirrhosis of liver K70.30 Hepatorenal syndrome K76.7 Chronic kidney disease N18.9 Thrombocytopenia D69.6 Chronic hypotension I95.89 Esophageal varices I85.00
--- NOTE | 2024-04-04 01:40 | PC.NURSE ---
PTS CALL LIGHT WENT OFF AND NURSE WENT IN TO CHECK ON PT. PTS WAS AT BEDSIDE. NURSE ASKED AND PT PER DR OSCAR IF PT WAS COMFORTABLE GOING HOME BECAUSE HE WAS OKAY WITH HIS SODIUM LEVEL, BUT IF THEY WERENT COMFORTABLE, HE WOULD MAKE SURE THAT THEY WERE ADMITTED HERE. PT VERBALIZED THAT SHE IS DISSAPOINTED IN THE CARE THAT HER HAS GOTTEN. PT ALSO VERBALIZED THAT SHE DOES NOT THINK DR OSCAR HAS CALLED THE DR, EVEN IF IT IS THE MIDDLE OF THE NIGHT. PT MENTIONS THAT SHE WANTS DR OSCAR TO CONSULT WITH PTS DR AT [facility] TO GET MORE INFORMATION ABOUT PTS SODIUM LEVELS. PT STATED, I LIKE DR STOUT. DID STATE WHEN BEING LET OUT OF THE ER, I AM NOT FRUSTRATED WITH YOU (TO NURSE), BUT I AM GOING TO TALK TO SOMEONE ABOUT THIS. NURSE DID MAKE DR OSCAR AWARE OF THE SITUATION VIA A CALL.
[2024-04-04] MEDS: albumin 25 G/100 ML BAG 60 G IV ×2 (04:01→08:26)
[2024-04-04] MEDS: TRAMadol 50 mg Tablet PO ×2 (04:02→22:34)
[2024-04-04] MEDS: pantoprazole DR 40 mg Tablet PO ×2 (04:02→15:01)
[2024-04-04] MEDS: metoclopramide 10 mg Tablet 5 MG PO ×3 (04:03→22:35)
[2024-04-04 04:33] LABS: Potassium, Radom Urine 14 mmol/L
[2024-04-04 04:42] LABS: Urine Random Chloride < 10 mmol/L; Urine Random Sodium < 10 mmol/L
[2024-04-04] MEDS: sodium chloride 0.9% 1,000 ML 50 ML IV (05:54)
[2024-04-04 06:36] LABS: Alanine Aminotransferase 33 U/L (0-41); Albumin Level 4.3 g/dL (3.5-5.2); Alkaline Phosphatase 130 U/L (40-130); Anion Gap 21.1 (5-19); Aspartate Amino Transferase 52 U/L (0-40); Blood Urea Nitrogen 58 mg/dL (6-20); Calcium 9.2 mg/dL (8.5-10.5); Carbon Dioxide 16 mmol/L (22-29); Chloride 92 mmol/L (98-107); Creatinine Clr Calc Pharmacy 25.5253; Glomerular Filtration Rate 20.7 mL/min (90-130); Glucose 93 mg/dL (65-115); Osmolality Calculated 276 mOsm/kg (285-295); Potassium 4.1 mmol/L (3.5-5.1); Sodium 125 mmol/L (136-145); Total Bilirubin 2.5 mg/dL (0.15-1.2); Total Protein 6.3 g/dL (6.6-8.7)
[2024-04-04] MEDS: octreotide 100 mcg/mL SDV SUBCUT ×3 (08:19→23:46)
[2024-04-04] MEDS: lactulose oral liq 20 gm/30 mL UDC 10 GM PO (09:45)
[2024-04-04] MEDS: bumetanide 0.25 mg/mL SDV 4 mL 1 MG IVP (09:47)
[2024-04-04] MEDS: midodrine 5 mg TABLET 10 MG PO ×3 (09:49→20:30)
[2024-04-04] MEDS: allopurinol 300 mg Tablet PO (09:50)
[2024-04-04] MEDS: rifaximin 200 mg Tablet 600 MG PO (09:51)
[2024-04-04] MEDS: sodium bicarbonate 650 mg Tablet PO ×3 (09:53→20:28)
[2024-04-04 11:17] LABS: Urine Random Sodium 10 mmol/L
[2024-04-04 16:20] LABS: Blood Urea Nitrogen 56 mg/dL (6-20); Calcium 9.5 mg/dL (8.5-10.5); Carbon Dioxide 19 mmol/L (22-29); Chloride 92 mmol/L (98-107); Creatinine Clr Calc Pharmacy 29.2729; Glomerular Filtration Rate 23.2 mL/min (90-130); Glucose 90 mg/dL (65-115); Osmolality Calculated 279 mOsm/kg (285-295); Sodium 127 mmol/L (136-145)
[2024-04-04 16:21] LABS: Anion Gap 19.9 (5-19); Potassium 3.9 mmol/L (3.5-5.1)
--- NOTE | 2024-04-04 16:49 | PM.TDS ---
Transfer Summary Providers Date of Admission: 04/04/24 02:26 Date of Discharge/Transfer: 04/04/24 Attending Provider at Admission: Jamir Mcginnis MD Attending Provider at Transfer: Reagan Wu MD Consults: none Primary Care Provider: Alia Sanchez MD Transfer Plans: Anticipated date of transfer: 04/04/24. Additional transfer facility information: [facility] in [place] . Diagnoses at Discharge Discharge Diagnosis (1) Acute hyponatremia: Details from hospital stay: Patient sent in by his bear keeper for sodium 121 patient was admitted through the ER to correct hyponatremia in preparation for anticipated liver transplant. Patient treatment included 3% saline infusion in the ED plus albumin followed by normal saline, salt tablets and sodium bicarb tablets. Also started on diuretics low-dose including IV Bumex 1 mg twice a day and spironolactone 25 mg once a day Status: Acute (2) Alcoholic cirrhosis of liver: Details from hospital stay: Patient notified that he has a liver available for transplant anticipated surgery tomorrow. I called the transplant center at [phone]. Dr. Blaise Aquino MD is accepting physician. He did not wish to speak her at checkout I have received request from Anny Ocasio this morning that goal was for sodium to be corrected to a safe range for surgery preoperatively. I recommended that this be managed including some diuretics and sodium bicarb and asked to speak with the bear keeper on-call and left my cell phone number this morning but have not received a call back Status: Acute (3) Hepatorenal syndrome: Details from hospital stay: Fluids in today 350 cc urine output patient states is a lot more than his baseline but not recorded Patient received Bumex 1 mg IV this morning and also spironolactone 25 mg daily repeat creatinine today 2.9 down from 3.2 yesterday sodium 127 up from 123. Blood pressure stable lowest systolic blood pressure 114 bilirubin is 2.5 Continue conservative diuresis. Monitor urine output every 8 hours by urinal measurements and hold diuretics systolic blood pressure less than 105 Continue sodium bicarb 650 mg 3 times daily. BMP twice a day Status: Acute (4) Chronic kidney disease: Details from hospital stay: Patient with acute renal failure starting December 2023 when creatinine of 1.1 noel to 1.5 and peaked at 3.5 on 02/01/2024 Status: Chronic (5) Thrombocytopenia: Details from hospital stay: Mild with platelet count 97 Status: Acute (6) Chronic hypotension: Details from hospital stay: Monitor closely during diuresis and current blood pressure 114/74 heart rate 95 Status: Acute (7) Esophageal varices: Details from hospital stay: Stable without signs or symptoms of bleeding Status: Acute Reason for Visit Reason for Visit kimberlyn called parvin bullock sent to er Brief History: Chase Rivero is a 48 year old male with a past medical history significant for end-stage decompensated alcoholic liver cirrhosis with recurrent ascites, kidney disease with hepatorenal syndrome, chronic hyponatremia on midodrine, and chronic hyponatremia secondary of liver disease who presents to the emergency department with abnormal labs. Patient was found of a sodium of 121 earlier today. Repeat labs showed persistent sodium of 121. He has had multiple recurrent similar presentations and most recently discharged on March 25 after being admitted for hyponatremia. Hospital Course Hospital Course Patient admitted with low sodium 121. He also has received 3% saline, normal saline, salt tabs, sodium bicarbonate tablets, diuresis with Bumex 1 mg IV this morning and spironolactone 25 mg x 1. Urine output has been improved blood pressure also improved labs trending favorably. Transplant service at [place] called to report that the liver is available for him and he has been accepted for transfer. We are awaiting bed availability. Accepting physician is Blaise Dickinson. I offered to speak with Dr. Aquino for checkout but he declined Physical Exam Narrative: General Well-developed well-nourished jaundiced male with muscle wasting and ascites. CV regular rate and rhythm Lungs clear to auscultation bilaterally Abdomen positive bowel sounds soft distended no rebound tenderness Calves no tenderness or pretibial edema Sclera are icteric TS Data Studies Completed and Pending Pending at discharge Category Date Time Status Blood Culture Stat Lab 04/03/24 19:07 Results Laboratory Last Values WBC 10.34 10^3/uL (3.29-11.43) 04/03/24 19:03 RBC 2.66 10^6/uL (3.85-5.65) L 04/03/24 19:03 Hgb 9.70 g/dL (11.27-16.99) L 04/03/24 19:03 Hct 26.0 % (37-53) L 04/03/24 19:03 MCV 97.7 fl (82-101) 04/03/24 19:03 MCH 36.5 pg (27-33) H 04/03/24 19:03 MCHC 37.3 g/dL (30-55) 04/03/24 19:03 RDW 21.3 % (12.1-15.1) H 04/03/24 19:03 Plt Count 97 10^3/cmm (157-399) L 04/03/24 19:03 MPV 11.3 fL (7.4-10.4) H 04/03/24 19:03 Neut % (Auto) 77.0 % 04/03/24 19:03 Lymph % (Auto) 4.4 % 04/03/24 19:03 [place] % (Auto) 15.2 % 04/03/24 19:03 Eos % (Auto) 2.3 % 04/03/24 19:03 Baso % (Auto) 0.4 % 04/03/24 19:03 Neut # (Auto) 7.96 10^3/uL (1.8-7.7) H 04/03/24 19:03 Lymph # (Auto) 0.5 10^3/uL (0.8-4.8) L 04/03/24 19:03 [place] # (Auto) 1.6 10^3/uL (0.2-0.9) H 04/03/24 19:03 Eos # (Auto) 0.2 10^3/uL (0.0-0.8) 04/03/24 19:03 Baso # (Auto) 0.0 10^3/uL (0.0-0.1) 04/03/24 19:03 Nucleated RBC % (auto) 0 % 04/03/24 19:03 Nucleated RBCs # 0.0 /100WBC 04/03/24 19:03 PT 16.40 SECONDS (12.1-14.9) H 04/03/24 19:03 INR 1.23 (0.8-1.2) H 04/03/24 19:03 Sodium 127 mmol/L (136-145) L 04/04/24 15:54 Potassium 3.9 mmol/L (3.5-5.1) 04/04/24 15:54 Chloride 92 mmol/L (98-107) L 04/04/24 15:54 Carbon Dioxide 19 mmol/L (22-29) L 04/04/24 15:54 Anion Gap 19.9 (5-19) H 04/04/24 15:54 BUN 56 mg/dL (6-20) H 04/04/24 15:54 Creatinine 2.9 mg/dL (0.7-1.2) H 04/04/24 15:54 GFR Calculation 23.2 mL/min (90-130) L 04/04/24 15:54 Glucose 90 mg/dL (65-115) 04/04/24 15:54 Calculated Osmolality 279 mOsm/kg (285-295) L 04/04/24 15:54 Lactic Acid 2.7 mmol/L (0.5-2.2) H 04/03/24 19:03 Lactic Acid (Sepsis) 2.5 mmol/L (0.5-2.2) H 04/03/24 21:50 Calcium 9.5 mg/dL (8.5-10.5) 04/04/24 15:54 Magnesium 2.3 mg/dL (1.7-2.3) 04/03/24 19:03 Total Bilirubin 2.5 mg/dL (0.15-1.2) H 04/04/24 06:14 AST 52 U/L (0-40) H 04/04/24 06:14 ALT 33 U/L (0-41) 04/04/24 06:14 Alkaline Phosphatase 130 U/L (40-130) 04/04/24 06:14 Total Protein 6.3 g/dL (6.6-8.7) L 04/04/24 06:14 Albumin 4.3 g/dL (3.5-5.2) 04/04/24 06:14 Globulin 2.0 g/dL (1.3-4.6) 04/04/24 06:14 Procalcitonin 0.66 ng/mL (0-0.5) H 04/03/24 19:03 Urine Color Yellow (Yellow) 04/03/24 20:26 Urine Appearance Clear (CLEAR) 04/03/24 20: Urine pH 5.5 (5-7) 04/03/24 20:26 Ur Specific [place] 1.015 (1.005-1.030) 04/03/24 20:26 Urine Protein Negative (Negative) 04/03/24 20:26 Urine Glucose (UA) Negative (Normal) 04/03/24 20: Urine Ketones Negative (Negative) 04/03/24 20: Urine Blood Negative (Negative) 04/03/24 20: Urine Nitrate Negative (Negative) 04/03/24 20: Urine Bilirubin Negative (Negative) 04/03/24 20: Urine Urobilinogen 0.2 mg/dL (Negative) 04/03/24 20: Ur Leukocyte Esterase Negative (Negative) 04/03/24 20: Urine RBC 0-2 /hpf (0-2) 04/03/24 20: Urine WBC 0-5 /hpf (0-5) 04/03/24 20: Ur Squamous Epith Cells 0-5 /hpf (0-5) 04/03/24 20: Amorphous Sediment Not Reportable 04/03/24 20: Urine Bacteria None seen /hpf (NONE) 04/03/24 20: Hyaline Casts 4.95 /lpf 04/03/24 20:26 Ur Random Sodium 10 mmol/L 04/04/24 10:40 Ur Random Potassium 14 mmol/L 04/04/24 04:10 Ur Random Chloride < 10 mmol/L 04/04/24 04:10 Coronavirus (PCR) Negative (Negative) 04/03/24 18:17 Influenza A (PCR) Negative (Negative) 04/03/24 18:17 Influenza Type B (PCR) Negative (Negative) 04/03/24 18:17 RSV (PCR) Negative (Negative) 04/03/24 18:17 Recent Clincial Data Last Vital Signs Temp 97.7 F 04/04/24 15:51 Pulse 95 04/04/24 15:51 Resp 18 04/04/24 15:51 BP 114/74 04/04/24 15:51 Pulse Ox 98 04/04/24 15:51 O2 Del Method Room Air 04/04/24 15:51 Vital Signs Temp Pulse Resp BP Pulse Ox O2 Del Method 04/04/24 15:51 97.7 F 95 18 114/74 98 Room Air 04/04/24 14:51 Room Air 04/04/24 14:02 92 93/50 98 04/04/24 13:43 98.1 F 96 17 97/56 97 Room Air 04/04/24 12:00 92 22 H 93/50 98 04/04/24 11:30 98 17 102/66 100 04/04/24 11:00 100 19 H 112/64 98 04/04/24 10:30 102 H 17 107/59 96 04/04/24 10:00 101 H 16 106/61 97 04/04/24 09:30 99 17 105/59 97 04/04/24 09:25 100 19 H 94/55 97 04/04/24 09:20 97 19 H 94/55 96 04/04/24 09:00 97 22 H 94/55 97 04/04/24 08:30 96 23 H 105/59 95 04/04/24 08:00 100 13 98/51 96 04/04/24 07:30 97 14 90/49 95 04/04/24 07:20 98 21 H 91/48 96 04/04/24 07:00 92 24 H 91/48 95 04/04/24 05:40 92 17 97/61 98 04/04/24 05:35 93 15 97/61 98 04/04/24 05:30 92 17 97/61 98 04/04/24 05:25 96 18 92/60 98 04/04/24 05:20 97 15 92/60 98 04/04/24 05:15 89 15 92/60 97 04/04/24 05:10 89 19 H 92/60 96 04/04/24 05:05 88 14 92/60 98 04/04/24 05:00 90 26 H 92/60 98 04/04/24 04:55 86 15 107/63 97 04/04/24 04:50 88 16 107/63 97 Intake & Output/Weight 04/02/24 04/03/24 04/04/24 04/05/24 06:59 06:59 06:59 06:59 Intake Total 350 / 350 100 / 100 Balance 350 / 350 100 / 100 Weight 58.967 kg 65.317 kg Vitals Last Vital Signs Temp 97.7 F 04/04/24 15:51 Pulse 95 04/04/24 15:51 Resp 18 04/04/24 15:51 BP 114/74 04/04/24 15:51 Pulse Ox 98 04/04/24 15:51 O2 Del Method Room Air 04/04/24 15:51 TS Medications Medications Allopurinol (Allopurinol 300 Mg Tablet) 300 mg PO DAILY [facility] Last Admin: 04/04/24 09:50 Dose: 300 mg Bumetanide (Bumetanide 0.25 Mg/Ml Sdv 4 Ml) 1 mg IVP BID [facility] Last Admin: 04/04/24 09:47 Dose: 1 mg Sodium Chloride (Sodium Chloride 0.9%) 1,000 mls @ 50 mls/hr IV .Q20H [facility] Last Admin: 04/04/24 05:54 Dose: 50 mls/hr Lactulose (Lactulose Oral Liq 20 Gm/30 Ml Udc) 10 gm PO BID [facility] Last Admin: 04/04/24 09:45 Dose: 10 gm Metoclopramide HCl (Metoclopramide 10 Mg Tablet) 5 mg PO BID PRN PRN Reason: Nausea And Vomiting Last Admin: 04/04/24 08:33 Dose: 5 mg Midodrine (Midodrine 5 Mg Tablet) 10 mg PO TID [facility] Last Admin: 04/04/24 15:01 Dose: 10 mg Octreotide Acetate (Octreotide 100 Mcg/Ml Sdv) 100 mcg SUBCUT Q8H [facility] Last Admin: 04/04/24 16:21 Dose: 100 mcg Pantoprazole Sodium (Pantoprazole Dr 40 Mg Tablet) 40 mg PO Q12H [facility] Last Admin: 04/04/24 15:01 Dose: 40 mg Polyethylene Glycol (Polyethylene Glycol 3350 Pkt 17 Gm) 17 gm PO DAILY PRN PRN Reason: Constipation Rifaximin (Rifaximin 200 Mg Tablet) 600 mg PO BID [facility] Last Admin: 04/04/24 09:51 Dose: 600 mg Sodium Bicarbonate (Sodium Bicarbonate 650 Mg Tablet) 650 mg PO TID [facility] Last Admin: 04/04/24 15:01 Dose: 650 mg Sodium Chloride (Sodium Chloride 1 Gm Tablet) 2 gm PO TID [facility] Last Admin: 04/04/24 15:02 Dose: Not Given Spironolactone (Spironolactone 25 Mg Tablet) 25 mg PO DAILY [facility] Last Admin: 04/04/24 09:58 Dose: Not Given Tramadol HCl (Tramadol 50 Mg Tablet) 50 mg PO Q8H PRN PRN Reason: pain Last Admin: 04/04/24 04:02 Dose: 50 mg Discontinued Medications Sodium Chloride 100 ml/ N/A 100 mls @ 200 mls/hr IV ONCE ONE Stop: 04/03/24 22:18 Last Infusion: 04/04/24 00:03 Dose: Infused Albumin Human (Albumin) 25 g in 100 mls @ 60 mls/hr IV ONCE ONE Stop: 04/03/24 23:28 Last Admin: 04/03/24 22:11 Dose: Not Given Albumin Human (Albumin) 37.5 gm in 150 mls @ 60 mls/hr IV ONCE ONE Stop: 04/04/24 00:19 Last Infusion: 04/04/24 03:34 Dose: Infused Albumin Human (Albumin) 25 g in 100 mls @ 60 mls/hr IV Q6H [facility] Last Infusion: 04/04/24 10:15 Dose: Infused Rifaximin (Rifaximin 550 Mg Tablet) 550 mg PO BID [facility] Allergies No Known Allergies Allergy (Verified 04/04/24 10:34) Home Medications allopurinol 300 mg tablet 300 mg PO DAILY 06/29/23 [History Confirmed 04/04/24] ondansetron HCl 4 mg tablet 4 mg PO Q8H PRN Nausea And Vomiting 30 days #30 tabs 01/02/24 [Rx Confirmed 04/04/24] albuterol sulfate 90 mcg/actuation aerosol inhaler (Ventolin HFA) 2 inh inhalation Q6H PRN shortness of breath or wheezing #6.7 grams 01/08/24 [Rx Confirmed 04/04/24] mometasone 110 mcg/actuation(30 doses) breath activated powder inhaler (Asmanex Twisthaler) 2 inh inhalation DAILY 01/31/24 [History Confirmed 04/04/24] tramadol 50 mg tablet 50 mg PO Q8H PRN pain #10 tabs 02/02/24 [Rx Confirmed 04/04/24] metoclopramide HCl 5 mg tablet 5 mg PO BID PRN Nausea And Vomiting 02/06/24 [History Confirmed 04/04/24] midodrine 5 mg tablet 10 mg PO TID 02/06/24 [History Confirmed 04/04/24] rifaximin 550 mg tablet 550 mg PO BID 02/06/24 [History Confirmed 04/04/24] lactulose 10 gram/15 mL oral solution (Constulose) 15 ml PO BID PRN Stomach Upset 02/29/24 [History Confirmed 04/04/24] pantoprazole 40 mg tablet,delayed release 40 mg PO Q12H 30 days #60 tabs 03/04/24 [Rx Confirmed 04/04/24] sucralfate 1 gram tablet 1 g PO BID 04/04/24 [History Confirmed 04/04/24] Discharge Plan Discharge Patient Disposition: Home Condition: Stable Prescriptions: No Action ondansetron HCl 4 mg tablet 4 mg PO Q8H PRN (Reason: Nausea And Vomiting) 30 Days Qty: 30 0RF albuterol sulfate [Ventolin HFA] 90 mcg/actuation HFA aerosol inhaler 2 inh inhalation Q6H PRN (Reason: shortness of breath or wheezing) Qty: 6.7 0RF lactulose [Constulose] 10 gram/15 mL solution 15 ml PO BID PRN (Reason: Stomach Upset) pantoprazole 40 mg tablet,delayed release (DR/EC) 40 mg PO Q12H 30 Days Qty: 60 0RF sucralfate 1 gram tablet 1 g PO BID allopurinol 300 mg Tablet 300 mg PO DAILY midodrine 5 mg tablet 10 mg PO TID metoclopramide HCl 5 mg tablet 5 mg PO BID PRN (Reason: Nausea And Vomiting) rifaximin 550 mg Tablet 550 mg PO BID Asmanex Twisthaler 110 mcg/ actuation (30) Aerosol Powdr Breath Activated 2 inh INHALATION DAILY Rx Instructions: administer 1 hour before bedtime tramadol 50 mg tablet 50 mg PO Q8H PRN (Reason: pain) Qty: 10 0RF Discharge Orders: Transfer Out of Facility (Order); Ordered 04/04/24 Ordered By: Reagan Wu Referrals: Alia Sanchez MD [Primary Care Provider] - Discharge Diet: Regular Discharge Activity: Increase activity as tolerated Patient Instructions: Opioid Safety, Pain Management Transfer Attestations Time Spent in Transfer Care: greater than 30 min Status at Transfer: Cognitive status at transfer: cognitively intact; Behavioral status at transfer: cooperative; Quality Metrics Clinical Quality Measures [ No reported AMI, CVA or VTE this stay] Coding Level of Care Code Acute Code for g Fwd Diagnoses Acute hyponatremia E87.1 Alcoholic cirrhosis of liver K70.30 Hepatorenal syndrome K76.7 Chronic kidney disease N18.9 Thrombocytopenia D69.6 Chronic hypotension I95.89 Esophageal varices I85.00 Time Spent (min) 70 Comment Including discussion with patient, and transfer coordination at [facility]
[2024-04-04] MEDS: sodium chloride 1 gm Tablet 2 GM PO (20:29)
--- NOTE | 2024-04-04 22:07 | PC.NURSE ---
Floor nurse was called at 2036 by Geena to notify us that the Donor is no longer viable and will no longer be accepting the patient for the transplant. Dr. Mcginnis was notified at 2038. Patient and family was notified of the situation at 2040.
[2024-04-05] VITALS (10 sets, daily range): BP systolic 96–111; BP diastolic 59–72; PULSE 68–89; RESP 15–16; TEMP 36.8–37; O2SAT 94–98
[2024-04-05] MEDS: pantoprazole DR 40 mg Tablet PO ×2 (02:08→14:59)
[2024-04-05] MEDS: midodrine 5 mg TABLET 10 MG PO ×3 (08:42→19:57)
[2024-04-05] MEDS: rifaximin 200 mg Tablet 600 MG PO ×2 (08:42→17:23)
[2024-04-05] MEDS: sodium chloride 0.9% 1,000 ML 50 ML IV (08:43)
[2024-04-05] MEDS: sodium bicarbonate 650 mg Tablet PO (08:43)
[2024-04-05] MEDS: allopurinol 300 mg Tablet PO (08:43)
[2024-04-05 09:26] LABS: Anion Gap 20.4 (5-19); Blood Urea Nitrogen 58 mg/dL (6-20); Calcium 8.8 mg/dL (8.5-10.5); Carbon Dioxide 17 mmol/L (22-29); Chloride 93 mmol/L (98-107); Creatinine Clr Calc Pharmacy 26.7221; Glomerular Filtration Rate 20.7 mL/min (90-130); Glucose 127 mg/dL (65-115); Osmolality Calculated 282 mOsm/kg (285-295); Potassium 3.4 mmol/L (3.5-5.1); Sodium 127 mmol/L (136-145)
--- NOTE | 2024-04-05 10:12 | PC.CHAP ---
Pastoral Care Encounter/Spiritual Assessment Type of Contact [] Declined instructional technology facilitator visit [] Patient/Family/Request visit [] Outpatient visit [] Follow-up visit [] Physician referral [] Code/Alert [X] Routine visit [] Staff referral [] Actively dying [] Patient sleeping [] Family support [] [] Out of room [] Palliative care [] [] Receiving care in room [] Pre-surgical visit [] Trauma [] Long length of stay [] ICU visit [] Other: Relational/Emotional Strength [X] Patient feels connected with others/family/visitors/staff [] Distress [] Loneliness/isolation [] Abandonment Spirituality of Patient [X] Person of Adry [] Attends Hinduism of their Adry [X] Believes in Prayer [] Reads Bible or Muslim materials [] There are Spiritual issues to be addressed Wrapper Stemmer Hand 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 [x] Prayer [x] Active listening [] Non-anxious presence [x] Spiritual/emotional support [] Crisis/trauma care [] Spiritual counseling [] Bereavement support [] Provided bereavement packet [] Provided Bible/devotional materials [] Provided toy/stuffed animal, coloring book to patient or family member [] Provided Communion [] Anointing/[place] [] Salvation [] Completed spiritual assessment [] Other: Impact on Illness or Injury [] Angry [] Fearful [x] Anxious [] Often cries [] Exhaustion [] Unable to work [] Unable to attend denominational [] Unable to walk/stand [] Unable to read [] Unable to drive [] Unable to eat/drink [] Unable to sleep [] Unable to be with family [] Patient intubated [] Other: Summary P+1+st Time spent with patient 20 min
[2024-04-05 11:19] LABS: Uric Acid 3.7 mg/dL (3.4-7.0)
--- NOTE | 2024-04-05 14:25 | P.PN_ITS ---
Subjective 2 Subjective: 48-year-old male accepted for hepatorenal transplant with transfer to [facility] last evening received notice that the donor was not doing well and about a renal transplant was not possible. He remains here on management for hyponatremia. I placed calls to speak to the physician both at the [facility] campaign coordinator Anny mejia at [phone] and also with the campaign coordinator at [phone] Dr. Blaise pimentel and was on the other line but declined to speak with me stated that was not necessary Patient and are concerned about diuretics. They were told not to be given any diuretic we discussed that we are monitoring his blood pressure and urine output here to make sure that he is not having acute kidney failure but that it is safer to remove some of the fluid with gentle diuresis then with recurrent large-volume paracentesis. Vitals/I&O/Wt Last Vital Signs Temp 98.6 F 04/05/24 12:00 Pulse 89 04/05/24 13:53 Resp 16 04/05/24 12:00 BP 98/61 04/05/24 12:00 Pulse Ox 95 04/05/24 12:00 O2 Del Method Room Air 04/05/24 12:00 04/04/24 04/05/24 04/05/24 22:59 06:59 14:59 Intake Total 240 / 340 600 / 940 640 / 640 Output Total 200 / 200 150 / 350 Balance 40 / 140 450 / 590 640 / 640 Weight last 48 hrs Weight 66.542 kg Weight 65.317 kg Weight 58.967 kg Physical Exam 2 Narrative: General Well-developed well-nourished jaundiced male with muscle wasting and ascites. CV regular rate and rhythm Lungs clear to auscultation bilaterally Abdomen positive bowel sounds soft distended no rebound tenderness Calves no tenderness or pretibial edema Sclera are icteric Data 04/03/24 19:03 04/05/24 09:03 Micro: Microbiology 04/03/24 19:07 Blood Culture - Preliminary Blood NEGATIVE TO DATE 04/03/24 19:03 Blood Culture - Preliminary Blood NEGATIVE TO DATE A&P Assessment and plan (1) Acute hyponatremia: Acute on chronic hyponatremia in the setting of liver disease Sodium is up to 127 but persisting Patient is free water restricted to 1200 cc a day Will check urine sodium Saline lock IV after this bag of normal saline (2) Alcoholic cirrhosis of liver: End-stage alcoholic liver cirrhosis Follows at [facility] for transplant (3) Hepatorenal syndrome: Hepatorenal syndrome And is on the liver kidney transplant list unfortunately was not able to be achieved last evening due to instability of the donor (4) Chronic kidney disease: Management of kidney disease as above (5) Thrombocytopenia: Thrombocytopenia secondary liver disease Platelets at baseline Monitor for bleeding SCDs for DVT prophylaxis (6) Chronic hypotension: Continue home midodrine Hold diuretics when systolic blood pressure less than 100 due to risk of hepatorenal (7) Esophageal varices: Not on beta-dimas, hemodynamics would not allow Continue PPI Stop octreotide no signs of bleeding Plan I gave the patient and my phone number to pass on to Dr. Alegria. Not not had any luck getting a call back from [facility] to discuss the management of hyponatremia and diuresis versus large volume paracentesis PDMP PDMP Reviewed: Not Reviewed Attestations 2 Medical Necessity Statement*: Patient remains in the hospital for close monitoring while giving gentle diuretics. Anticipate 1-2 more nights in the hospital Coding Level of Care Code 41716 Diagnoses Acute hyponatremia E87.1 Alcoholic cirrhosis of liver K70.30 Hepatorenal syndrome K76.7 Chronic kidney disease N18.9 Thrombocytopenia D69.6 Chronic hypotension I95.89 Esophageal varices I85.00 Time Spent (min) 55
[2024-04-05] MEDS: sodium bicarbonate 650 mg Tablet 1300 MG PO ×2 (14:59→19:58)
[2024-04-05] MEDS: sucralfate 1 gm Tablet PO (17:23)
[2024-04-05] MEDS: metoclopramide 10 mg Tablet 5 MG PO (17:44)
[2024-04-05] MEDS: oxyCODONE 5 mg IR Tab/Cap PO (17:45)
[2024-04-05 18:56] LABS: Anion Gap 19.4 (5-19); Blood Urea Nitrogen 60 mg/dL (6-20); Calcium 8.7 mg/dL (8.5-10.5); Carbon Dioxide 18 mmol/L (22-29); Chloride 97 mmol/L (98-107); Creatinine Clr Calc Pharmacy 28.5036; Glomerular Filtration Rate 22.4 mL/min (90-130); Glucose 141 mg/dL (65-115); Osmolality Calculated 291 mOsm/kg (285-295); Potassium 3.4 mmol/L (3.5-5.1); Sodium 131 mmol/L (136-145)
[2024-04-05] MEDS: fludrocortisone 0.1 mg Tablet PO (19:57)
[2024-04-05] MEDS: sodium chloride 1 gm Tablet PO (19:58)
[2024-04-05] MEDS: hydrocortisone 100 mg/2 mL SDV 50 MG IVP (19:58)
[2024-04-05 20:26] LABS: Cortisol Random 7.98 ug/dL (2.47-19.5)
[2024-04-06] VITALS (12 sets, daily range): BP systolic 96–112; BP diastolic 58–68; PULSE 68–86; RESP 14–16; TEMP 36.4–36.8; O2SAT 94–98
[2024-04-06] MEDS: hydrocortisone 100 mg/2 mL SDV 50 MG IVP ×4 (00:48→20:39)
[2024-04-06] MEDS: pantoprazole DR 40 mg Tablet PO ×2 (01:59→13:57)
[2024-04-06] MEDS: oxyCODONE 5 mg IR Tab/Cap PO ×4 (04:19→23:42)
[2024-04-06] MEDS: sodium chloride 0.9% 1,000 ML 50 ML IV (04:21)
[2024-04-06 09:18] LABS: Blood Urea Nitrogen 57 mg/dL (6-20); Carbon Dioxide 16 mmol/L (22-29); Creatinine Clr Calc Pharmacy 30.3429; Glomerular Filtration Rate 24.2 mL/min (90-130); Glucose 173 mg/dL (65-115); Osmolality Calculated 292 mOsm/kg (285-295)
[2024-04-06 09:27] LABS: Chloride 98 mmol/L (98-107); Sodium 133 mmol/L (136-145)
[2024-04-06] MEDS: fludrocortisone 0.1 mg Tablet PO (10:23)
[2024-04-06] MEDS: sodium bicarbonate 650 mg Tablet 1300 MG PO ×3 (10:23→20:38)
[2024-04-06] MEDS: rifaximin 200 mg Tablet 600 MG PO ×2 (10:23→17:43)
[2024-04-06] MEDS: bumetanide 1 mg Tablet PO (10:23)
[2024-04-06] MEDS: potassium chloride ER 20 mEq Tablet 40 MEQ PO (10:24)
[2024-04-06] MEDS: sodium chloride 1 gm Tablet PO ×3 (10:24→20:39)
[2024-04-06] MEDS: midodrine 5 mg TABLET 10 MG PO ×3 (10:24→20:39)
[2024-04-06] MEDS: allopurinol 100 mg Tablet PO (10:24)
[2024-04-06] MEDS: sucralfate 1 gm Tablet PO ×2 (10:24→17:43)
[2024-04-06] MEDS: metoclopramide 10 mg Tablet 5 MG PO (13:58)
--- NOTE | 2024-04-06 14:38 | PM.PN ---
Subjective Subjective: 48-year-old male with end-stage liver disease awaiting liver kidney transplant. He has been receiving weekly large-volume paracentesis here at [facility] [place]. Last peritoneal fluid sampling on 03/31/2024 was negative for SBP. Patient has had hyponatremia and hypotension making his opportunity for transplant tenuous due to sodium less than 125. He was referred here for correction of hyponatremia. A liver kidney donor became transiently available and we were planning for transfer but then the donor became nonviable. I spoke with Dr. Laron kern yesterday and we discussed risk of hepatorenal syndrome. I suspect the patient has adrenal insufficiency given the very low sodium and low blood pressure. His p.m. cortisol yesterday was 7.3 which is not technically a low number but we do not have good normals for a patient who has hepatorenal failure and hyponatremia and hypotension. My impression is that it should be significantly higher. He was started on stress dose steroids 50 mg every 6 hours. He is also on sodium bicarbonate 1300 mg 3 times daily titrated up from 650 mg 3 times daily during this admission started on admission. Sodium chloride are 1 g 3 times daily but he was transiently on 2 g 3 times daily. He also had hypertonic saline and saline infusions early on admission Patient reports some discomfort from his ascites but states his mentation is clear with improved sodium and he feels better with the higher blood pressure Vitals/I&O/Wt Last Vital Signs Temp 97.6 F 04/06/24 12:00 Pulse 81 04/06/24 12:00 Resp 16 04/06/24 12:00 BP 103/66 04/06/24 12:00 Pulse Ox 97 04/06/24 12:00 O2 Del Method Room Air 04/06/24 12:00 04/05/24 04/06/24 04/06/24 22:59 06:59 14:59 Intake Total 600 / 1480 981.667 / 2461.667 957.5 / 957.5 Balance 600 / 1480 981.667 / 2461.667 957.5 / 957.5 Weight last 48 hrs Weight 65.453 kg Weight 66.542 kg Weight 65.317 kg Physical Exam Narrative: General well developed well-nourished male in no acute cardiopulmonary distress Skin is jaundice sclera icteric CV regular rate and rhythm Lungs basilar crackles heard incompletely clear with deep breaths Abdomen positive bowel sounds soft distended but not tense or tender Calves no edema Mentation alert oriented pleasant Data 04/03/24 19:03 04/06/24 08:43 A&P Assessment and plan (1) Acute hyponatremia: Acute on chronic hyponatremia in the setting of liver disease Sodium is up to 133 overnight Patient is free water restricted to 1200 cc a day Urine sodium is 10 Patient was started on stress dose hydrocortisone 50 mg every 6 hours IV plus Florinef 0.1 mg yesterday evening He is on Bumex 1 mg daily. I started then stop spironolactone due to borderline blood pressure (2) Alcoholic cirrhosis of liver: End-stage alcoholic liver cirrhosis Follows at [facility] for transplant (3) Hepatorenal syndrome: Patient's kidneys failed last September. At risk for hepatorenal syndrome with any significant drop in blood pressure. (4) Chronic kidney disease: Management of kidney disease as above (5) Thrombocytopenia: Thrombocytopenia secondary liver disease Platelets at baseline Monitor for bleeding SCDs for DVT prophylaxis (6) Chronic hypotension: Continue home midodrine Hold diuretics when systolic blood pressure less than 100 due to risk of hepatorenal (7) Esophageal varices: Not on beta-dimas, hemodynamics would not allow Continue PPI Stop octreotide no signs of bleeding Plan I gave the patient and my phone number to pass on to Dr. Alegria. Not not had any luck getting a call back from [facility] to discuss the management of hyponatremia and diuresis versus large volume paracentesis PDMP PDMP Reviewed: Not Reviewed Attestations Medical Necessity Statement*: Patient will remain in the hospital for treatment of adrenal insufficiency and correction of hyponatremia. Titrating his medications. Coding Level of Care Code 68266 Diagnoses Acute hyponatremia E87.1 Alcoholic cirrhosis of liver K70.30 Hepatorenal syndrome K76.7 Chronic kidney disease N18.9 Thrombocytopenia D69.6 Chronic hypotension I95.89 Esophageal varices I85.00 Time Spent (min) 55
[2024-04-06] MEDS: lactulose oral liq 20 gm/30 mL UDC 10 GM PO (17:43)
[2024-04-06 18:38] LABS: Anion Gap 19.4 (5-19); Blood Urea Nitrogen 59 mg/dL (6-20); Carbon Dioxide 19 mmol/L (22-29); Chloride 100 mmol/L (98-107); Glomerular Filtration Rate 22.4 mL/min (90-130); Glucose 179 mg/dL (65-115); Osmolality Calculated 301 mOsm/kg (285-295); Potassium 3.4 mmol/L (3.5-5.1); Sodium 135 mmol/L (136-145)
[2024-04-07] VITALS (11 sets, daily range): BP systolic 97–111; BP diastolic 56–73; PULSE 70–100; RESP 14–18; TEMP 36.3–36.8; O2SAT 94–99
[2024-04-07] MEDS: hydrocortisone 100 mg/2 mL SDV 50 MG IVP ×2 (01:45→08:38)
[2024-04-07] MEDS: pantoprazole DR 40 mg Tablet PO ×2 (01:45→15:24)
[2024-04-07] MEDS: metoclopramide 10 mg Tablet 5 MG PO ×2 (03:52→17:32)
[2024-04-07] MEDS: oxyCODONE 5 mg IR Tab/Cap PO ×3 (08:37→22:11)
--- NOTE | 2024-04-07 08:56 | PC.CHAP ---
Pastoral Care Encounter/Spiritual Assessment Type of Contact [] Declined process cheese cooker visit [] Patient/Family/Request visit [] Outpatient visit [] Follow-up visit [] Physician referral [] Code/Alert [x] Routine visit [] Staff referral [] Actively dying [] Patient sleeping [] Family support [] [] Out of room [] Palliative care [] [x] Receiving care in room [] Pre-surgical visit [] Trauma [] Long length of stay [] ICU visit [] Other: Relational/Emotional Strength [] Patient feels connected with others/family/visitors/staff [] Distress [] Loneliness/isolation [] Abandonment Spirituality of Patient [] Person of Adry [] Attends Denominational of their Adry [] Believes in Prayer [] Reads Bible or Hoahaoism materials [] There are Spiritual issues to be addressed Jet Pilot 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 [x] Prayer [] Active listening [] Non-anxious presence [] Spiritual/emotional support [] Crisis/trauma care [] Spiritual counseling [] Bereavement support [] Provided bereavement packet [] Provided Bible/devotional materials [] Provided toy/stuffed animal, coloring book to patient or family member [] Provided Communion [] Anointing/[place] [] Salvation [] Completed spiritual assessment [] Other: Impact on Illness or Injury [] Angry [] Fearful [] Anxious [] Often cries [] Exhaustion [] Unable to work [] Unable to attend tenriism [] Unable to walk/stand [] Unable to read [] Unable to drive [] Unable to eat/drink [] Unable to sleep [] Unable to be with family [] Patient intubated [] Other: Summary Time spent with patient
[2024-04-07] MEDS: ondansetron 2 mg/ML SDV 2 mL 4 MG IVP ×2 (09:00→20:47)
[2024-04-07] MEDS: potassium chloride ER 20 mEq Tablet PO (09:49)
[2024-04-07] MEDS: sodium chloride 1 gm Tablet PO ×2 (09:49→17:28)
[2024-04-07] MEDS: rifaximin 200 mg Tablet 600 MG PO ×2 (09:49→17:28)
[2024-04-07] MEDS: midodrine 5 mg TABLET 10 MG PO ×3 (09:49→20:01)
[2024-04-07] MEDS: fludrocortisone 0.1 mg Tablet PO (09:49)
[2024-04-07] MEDS: allopurinol 100 mg Tablet PO (09:49)
[2024-04-07] MEDS: bumetanide 1 mg Tablet PO (09:49)
[2024-04-07] MEDS: sodium bicarbonate 650 mg Tablet 1300 MG PO ×3 (09:49→20:01)
[2024-04-07] MEDS: lactulose oral liq 20 gm/30 mL UDC 10 GM PO ×2 (09:50→17:28)
[2024-04-07] MEDS: sucralfate 1 gm Tablet PO ×2 (09:50→17:28)
[2024-04-07 10:50] LABS: Anion Gap 22.5 (5-19); Blood Urea Nitrogen 59 mg/dL (6-20); Calcium 9.2 mg/dL (8.5-10.5); Carbon Dioxide 18 mmol/L (22-29); Chloride 97 mmol/L (98-107); Creatinine Clr Calc Pharmacy 27.5101; Glomerular Filtration Rate 21.5 mL/min (90-130); Glucose 227 mg/dL (65-115); Osmolality Calculated 302 mOsm/kg (285-295); Potassium 3.5 mmol/L (3.5-5.1); Sodium 134 mmol/L (136-145)
--- NOTE | 2024-04-07 14:50 | US_ITS ---
WS: [email or web address] ULTRASOUND ABDOMEN LIMITED CLINICAL INFORMATION: Ascites and hepatorenal failure COMPARISON: Prior paracentesis 03/31/2024 FINDINGS: Ascites: Small to moderate abdominal ascites. Patient scheduled for inpatient paracentesis tomorrow. US/US abdomen limited [id number] IMPRESSION: See above
--- NOTE | 2024-04-07 14:57 | P.PN_ITS ---
Subjective 2 Subjective: Patient was seen this morning, reports abdominal pain, distention, no lightheadedness, no dizziness, no nausea, no vomiting Vitals/I&O/Wt Last Vital Signs Temp 97.9 F 04/07/24 11:18 Pulse 83 04/07/24 11:18 Resp 16 04/07/24 11:18 BP 110/69 04/07/24 11:18 Pulse Ox 99 04/07/24 11:18 O2 Del Method Room Air 04/07/24 11:18 04/06/24 04/07/24 04/07/24 22:59 06:59 14:59 Intake Total 120 / 1077.5 720 / 720 Output Total 400 / 400 200 / 600 300 / 300 Balance -280 / 677.5 -200 / 477.5 420 / 420 Weight last 48 hrs Weight 66.088 kg Weight 65.453 kg Physical Exam 2 Const: COMMON NORMALS: no acute distress and patient oriented x3 Resp: COMMON NORMALS: normal respiratory effort, No retractions, No use of accessory muscles and clear to auscultation bilaterally AUSCULTATION: clear to auscultation bilaterally Cardio: COMMON NORMALS: regular rate, regular rhythm, S1 normal heart sound present and S2 normal heart sound present RATE: regular rate RHYTHM: r egular rhythm HEART SOUNDS: S1 normal heart sound present and S2 normal heart sound present GI: OTHER: Abdomen soft, slightly distended, no guarding, no rebound, no rigidity Extremity: COMMON NORMALS: no pedal edema Neuro: COMMON NORMALS: patient oriented x3 Psych: COMMON NORMALS: mental status grossly normal Data 04/03/24 19:03 04/07/24 10:17 A&P Assessment and plan (1) Acute hyponatremia: Acute on chronic hyponatremia -With history of chronic kidney disease -With liver cirrhosis -With hepatorenal syndrome -134 -Patient's cortisol levels were noted to be 7.98, started on hydrocortisone and fludrocortisone -Will transition to p.o. hydrocortisone, fludrocortisone for concerns for adrenal insufficiency -Continue p.o. Bumex (2) Alcoholic cirrhosis of liver: End-stage alcoholic liver cirrhosis Follows at [facility] for transplant (3) Hepatorenal syndrome: Monitor (4) Chronic kidney disease: Management of kidney disease as above (5) Thrombocytopenia: Secondary to underlying liver disease (6) Chronic hypotension: Continue home midodrine Fludrocortisone as above (7) Esophageal varices: Continue PPI Plan Plan for today paracentesis monitor serum sodium monitor blood pressures PDMP PDMP Reviewed: Not Reviewed Attestations 2 Medical Necessity Statement*: Patient reports recurrent ascites, liver cirrhosis hepatorenal syndrome hyponatremia hypotension Diagnoses Acute hyponatremia E87.1 Alcoholic cirrhosis of liver K70.30 Hepatorenal syndrome K76.7 Chronic kidney disease N18.9 Thrombocytopenia D69.6 Chronic hypotension I95.89 Esophageal varices I85.00
[2024-04-07] MEDS: hydrocortisone 10 mg Tablet 5 MG PO (17:28)
[2024-04-07 20:54] LABS: Blood Urea Nitrogen 59 mg/dL (6-20); Carbon Dioxide 20 mmol/L (22-29); Chloride 98 mmol/L (98-107); Creatinine Clr Calc Pharmacy 26.6504; Glomerular Filtration Rate 20.7 mL/min (90-130); Glucose 141 mg/dL (65-115); Osmolality Calculated 297 mOsm/kg (285-295); Sodium 134 mmol/L (136-145)
[2024-04-07 20:56] LABS: Anion Gap 19.9 (5-19); Potassium 3.9 mmol/L (3.5-5.1)
[2024-04-08] VITALS (10 sets, daily range): BP systolic 92–125; BP diastolic 51–75; PULSE 69–101; RESP 15–20; TEMP 36.4–36.9; O2SAT 91–100
[2024-04-08] MEDS: pantoprazole DR 40 mg Tablet PO ×2 (01:51→14:14)
[2024-04-08] MEDS: hydrocortisone 10 mg Tablet 5 MG PO ×3 (01:51→18:49)
[2024-04-08] MEDS: sodium chloride 1 gm Tablet PO ×2 (08:23→18:32)
[2024-04-08] MEDS: sodium bicarbonate 650 mg Tablet 1300 MG PO ×3 (08:23→21:28)
[2024-04-08] MEDS: midodrine 5 mg TABLET 10 MG PO ×3 (08:24→21:28)
[2024-04-08] MEDS: sucralfate 1 gm Tablet PO ×2 (08:24→18:32)
[2024-04-08] MEDS: fludrocortisone 0.1 mg Tablet PO (08:24)
[2024-04-08] MEDS: bumetanide 1 mg Tablet PO (08:24)
[2024-04-08] MEDS: potassium chloride ER 20 mEq Tablet PO ×2 (08:24→12:42)
[2024-04-08] MEDS: oxyCODONE 5 mg IR Tab/Cap PO ×2 (08:29→16:32)
--- NOTE | 2024-04-08 09:16 | US_ITS ---
WS: [email or web address] ULTRASOUND-GUIDED PARACENTESIS CLINICAL INFORMATION: ASCITES Procedure Informed consent: The risks, benefits, and alternatives of the procedure were discussed with the patient. Verbal and written consent was obtained. Timeout: A timeout was performed to confirm the correct patient, procedure, and site. Preparation: A suitable skin site was identified. The patient was prepped and draped in usual sterile fashion. Lidocaine 1% was used for local anesthesia. Catheter: 4 Yoruba One-step Yueh catheter. Side: LEFT lower quadrant. Fluid Volume: 7175 ml Color: Clear yellow DISPOSITION: Discarded safely. Complications: None. Patient disposition: Discharged from the department in stable condition. US/US paracentesis abd w [id number] IMPRESSION: Uncomplicated ultrasound-guided paracentesis. Removal of 7175 cc
--- NOTE | 2024-04-08 09:24 | PC.CHAP ---
Pastoral Care Encounter/Spiritual Assessment Type of Contact [x] Declined bottom presser visit [] Patient/Family/Request visit [] Outpatient visit [] Follow-up visit [] Physician referral [] Code/Alert [] Routine visit [] Staff referral [] Actively dying [] Patient sleeping [] Family support [] [] Out of room [] Palliative care [] [] Receiving care in room [] Pre-surgical visit [] Trauma [] Long length of stay [] ICU visit [] Other: Relational/Emotional Strength [] Patient feels connected with others/family/visitors/staff [] Distress [] Loneliness/isolation [] Abandonment Spirituality of Patient [] Person of Adry [] Attends Advent of their Adry [] Believes in Prayer [] Reads Bible or Buddhist materials [] There are Spiritual issues to be addressed Mobility Scooter Repairer 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 [] Prayer [] Active listening [] Non-anxious presence [] Spiritual/emotional support [] Crisis/trauma care [] Spiritual counseling [] Bereavement support [] Provided bereavement packet [] Provided Bible/devotional materials [] Provided toy/stuffed animal, coloring book to patient or family member [] Provided Communion [] Anointing/[place] [] Salvation [] Completed spiritual assessment [] Other: Impact on Illness or Injury [] Angry [] Fearful [] Anxious [] Often cries [] Exhaustion [] Unable to work [] Unable to attend religious [] Unable to walk/stand [] Unable to read [] Unable to drive [] Unable to eat/drink [] Unable to sleep [] Unable to be with family [] Patient intubated [] Other: Summary Time spent with patient
[2024-04-08] MEDS: rifaximin 200 mg Tablet 600 MG PO ×2 (09:37→18:50)
[2024-04-08 10:26] LABS: Blood Urea Nitrogen 58 mg/dL (6-20); Carbon Dioxide 20 mmol/L (22-29); Chloride 98 mmol/L (98-107); Creatinine Clr Calc Pharmacy 25.1704; Glomerular Filtration Rate 19.3 mL/min (90-130); Glucose 169 mg/dL (65-115); Osmolality Calculated 300 mOsm/kg (285-295); Sodium 135 mmol/L (136-145)
[2024-04-08] MEDS: albumin 25 G/100 ML BAG 60 G IV ×2 (11:27→14:13)
[2024-04-08 12:42] LABS: INR 1.28 (0.8-1.2)
[2024-04-08 12:48] LABS: Alanine Aminotransferase 46 U/L (0-41); Albumin Level 4.1 g/dL (3.5-5.2); Alkaline Phosphatase 131 U/L (40-130); Aspartate Amino Transferase 60 U/L (0-40); Globulin 1.8 g/dL (1.3-4.6); Total Bilirubin 1.9 mg/dL (0.15-1.2); Total Protein 5.9 g/dL (6.6-8.7)
[2024-04-08 13:59] LABS: Urine Random Sodium 136 mmol/L
--- NOTE | 2024-04-08 14:34 | P.PN_ITS ---
Subjective 2 Subjective: Patient was seen this morning, denies any fevers, no chills, no cough does continue to complain abdominal discomfort, currently receiving paracentesis, currently 6 L has come off, he is getting ready to receive albumin, Vitals/I&O/Wt Last Vital Signs Temp 98.4 F 04/08/24 08:00 Pulse 90 04/08/24 11:54 Resp 16 04/08/24 11:54 BP 105/62 04/08/24 11:54 Pulse Ox 96 04/08/24 11:54 O2 Del Method Room Air 04/08/24 11:54 04/07/24 04/08/24 04/08/24 22:59 06:59 14:59 Intake Total 240 / 960 240 / 1200 220 / 220 Output Total 775 / 1075 1000 / 1000 Balance -535 / -115 240 / 125 -780 / -780 Weight last 48 hrs Weight 66.678 kg Weight 66.678 kg Weight 66.088 kg Physical Exam 2 Const: COMMON NORMALS: no acute distress and patient oriented x3 Resp: COMMON NORMALS: normal respiratory effort, No retractions, No use of accessory muscles and clear to auscultation bilaterally AUSCULTATION: clear to auscultation bilaterally Cardio: COMMON NORMALS: regular rate, regular rhythm, S1 normal heart sound present and S2 normal heart sound present RATE: regular rate RHYTHM: r egular rhythm HEART SOUNDS: S1 normal heart sound present and S2 normal heart sound present GI: COMMON NORMALS: Normal to inspection, nondistended, normoactive bowel sounds present and non-tender Extremity: COMMON NORMALS: no pedal edema Neuro: COMMON NORMALS: patient oriented x3 Psych: COMMON NORMALS: mental status grossly normal Data 04/03/24 19:03 04/09/24 05:06 A&P Assessment and plan (1) Acute hyponatremia: Acute on chronic hyponatremia -With history of chronic kidney disease -With liver cirrhosis -With hepatorenal syndrome -134 -Patient's cortisol levels were noted to be 7.98, started on hydrocortisone and fludrocortisone -Will transition to p.o. hydrocortisone, fludrocortisone for concerns for adrenal insufficiency -Continue p.o. Bumex (2) Alcoholic cirrhosis of liver: End-stage alcoholic liver cirrhosis Follows at [facility] for transplant (3) Hepatorenal syndrome: Monitor (4) Chronic kidney disease: Management of kidney disease as above (5) Thrombocytopenia: Secondary to underlying liver disease (6) Chronic hypotension: Continue home midodrine Fludrocortisone as above (7) Esophageal varices: Continue PPI Plan LAQUITA on CKD -With concerns for underlying hepatorenal syndrome -Creatinine is up to 3.4 monitor urine output monitor creatinine will consider nephrology consultation Receiving paracentesis today, received 2 doses of albumin, potassium replacement therapy hold Bumex PDMP PDMP Reviewed: Not Reviewed Attestations 2 Medical Necessity Statement*: Patient requires hospitalization acute hyponatremia, laquita Diagnoses Acute hyponatremia E87.1 Alcoholic cirrhosis of liver K70.30 Hepatorenal syndrome K76.7 Chronic kidney disease N18.9 Thrombocytopenia D69.6 Chronic hypotension I95.89 Esophageal varices I85.00
[2024-04-08] MEDS: lactulose oral liq 20 gm/30 mL UDC 10 GM PO (18:30)
[2024-04-08] MEDS: ondansetron 2 mg/ML SDV 2 mL 4 MG IVP (23:25)
[2024-04-09] VITALS (11 sets, daily range): BP systolic 90–117; BP diastolic 52–66; PULSE 74–89; RESP 14–18; TEMP 36.6–36.9; O2SAT 94–98
[2024-04-09] MEDS: oxyCODONE 5 mg IR Tab/Cap PO ×3 (00:43→16:48)
[2024-04-09] MEDS: hydrocortisone 10 mg Tablet 5 MG PO ×3 (01:45→17:36)
[2024-04-09] MEDS: pantoprazole DR 40 mg Tablet PO ×2 (01:45→15:02)
[2024-04-09 06:18] LABS: INR 1.52 (0.8-1.2)
[2024-04-09 06:34] LABS: Alanine Aminotransferase 51 U/L (0-41); Albumin Level 3.9 g/dL (3.5-5.2); Alkaline Phosphatase 118 U/L (40-130); Anion Gap 18.9 (5-19); Aspartate Amino Transferase 70 U/L (0-40); Blood Urea Nitrogen 53 mg/dL (6-20); Calcium 8.9 mg/dL (8.5-10.5); Carbon Dioxide 24 mmol/L (22-29); Chloride 98 mmol/L (98-107); Creatinine Clr Calc Pharmacy 28.5265; Globulin 1.7 g/dL (1.3-4.6); Glomerular Filtration Rate 22.4 mL/min (90-130); Glucose 143 mg/dL (65-115); Osmolality Calculated 303 mOsm/kg (285-295); Sodium 138 mmol/L (136-145); Total Bilirubin 1.7 mg/dL (0.15-1.2); Total Protein 5.6 g/dL (6.6-8.7)
[2024-04-09 06:42] LABS: Potassium 2.9 mmol/L (3.5-5.1)
[2024-04-09] MEDS: rifaximin 200 mg Tablet 600 MG PO ×2 (08:52→17:36)
[2024-04-09] MEDS: lactulose oral liq 20 gm/30 mL UDC 10 GM PO (08:52)
[2024-04-09] MEDS: sodium chloride 1 gm Tablet PO ×2 (08:53→17:36)
[2024-04-09] MEDS: sucralfate 1 gm Tablet PO ×2 (08:54→17:36)
[2024-04-09] MEDS: potassium chloride ER 20 mEq Tablet PO ×2 (08:54)
[2024-04-09] MEDS: midodrine 5 mg TABLET 10 MG PO ×3 (08:54→21:12)
[2024-04-09] MEDS: fludrocortisone 0.1 mg Tablet PO (08:54)
[2024-04-09] MEDS: sodium bicarbonate 650 mg Tablet 1300 MG PO ×3 (08:54→21:12)
[2024-04-09] MEDS: albumin 50 G/200 ML BAG 60 G IV (09:08)
[2024-04-09 09:37] LABS: Basophils % 0.3 %; Eosinophils # 0.1 10^3/uL (0.0-0.8); Eosinophils % 1.2 %; Hematocrit 21.7 % (37-53); Lymphocytes # 0.5 10^3/uL (0.8-4.8); Mean Corpuscular HGB Conc 37.3 g/dL (30-55); Mean Corpuscular Volume 96.4 fl (82-101); Mean Platelet Volume 11.2 fL (7.4-10.4); Monocytes # 1.1 10^3/uL (0.2-0.9); Monocytes % 13.9 %; Neutrophils # 5.79 10^3/uL (1.8-7.7); Neutrophils % 76.8 %; Nucleated Red Blood Cells % 0 %; Platelet Count 64 10^3/cmm (157-399); Red Blood Count 2.25 10^6/uL (3.85-5.65); Red Cell Distribution Width 21.7 % (12.1-15.1); White Blood Count 7.54 10^3/uL (3.29-11.43)
[2024-04-09] MEDS: ondansetron 2 mg/ML SDV 2 mL 4 MG IVP ×2 (09:55→16:17)
[2024-04-09 10:51] LABS: Slide Review Slide Review Perform
--- NOTE | 2024-04-09 15:56 | P.PN_ITS ---
Subjective 2 Subjective: Patient was seen this morning, he tells me that he feels a bit unwell after his paracentesis blood pressures have been soft, no fevers, no chills, Vitals/I&O/Wt Last Vital Signs Temp 98.4 F 04/09/24 15:39 Pulse 89 04/09/24 15:39 Resp 14 04/09/24 15:39 BP 98/54 04/09/24 15:39 Pulse Ox 94 04/09/24 15:39 O2 Del Method Room Air 04/09/24 15:39 04/09/24 04/09/24 04/09/24 06:59 14:59 22:59 Intake Total 620 / 1540 800 / 800 Output Total 400 / 2800 375 / 375 Balance 220 / -1260 425 / 425 Weight last 48 hrs Weight 59.676 kg Weight 66.678 kg Weight 66.678 kg Physical Exam 2 Const: COMMON NORMALS: no acute distress and patient oriented x3 Resp: COMMON NORMALS: normal respiratory effort, No retractions, No use of accessory muscles and clear to auscultation bilaterally AUSCULTATION: clear to auscultation bilaterally Cardio: COMMON NORMALS: regular rate, regular rhythm, S1 normal heart sound present and S2 normal heart sound present RATE: regular rate RHYTHM: r egular rhythm HEART SOUNDS: S1 normal heart sound present and S2 normal heart sound present GI: COMMON NORMALS: Normal to inspection, nondistended, normoactive bowel sounds present and non-tender Extremity: COMMON NORMALS: no pedal edema Neuro: COMMON NORMALS: patient oriented x3 Psych: COMMON NORMALS: mental status grossly normal Data 04/09/24 05:06 04/09/24 05:06 Micro: Microbiology 04/03/24 19:07 Blood Culture - Final Blood NO GROWTH AFTER 5 DAYS 04/03/24 19:03 Blood Culture - Final Blood NO GROWTH AFTER 5 DAYS A&P Assessment and plan (1) Acute hyponatremia: Acute on chronic hyponatremia, resolving -With history of chronic kidney disease -With liver cirrhosis -With hepatorenal syndrome -Patient's cortisol levels were noted to be 7.98, started on hydrocortisone and fludrocortisone -Will transition to p.o. hydrocortisone, fludrocortisone for concerns for adrenal insufficiency Bumex is on hold (2) Alcoholic cirrhosis of liver: End-stage alcoholic liver cirrhosis Follows at [facility] for transplant (3) Hepatorenal syndrome: Monitor (4) Chronic kidney disease: Management of kidney disease as above (5) Thrombocytopenia: Secondary to underlying liver disease (6) Chronic hypotension: Continue home midodrine Fludrocortisone as above (7) Esophageal varices: Continue PPI Plan LAQUITA on CKD -With concerns for underlying hepatorenal syndrome -Creatinine is up to 3.4 monitor urine output monitor creatinine will consider nephrology consultation Patient has acute on chronic hypotension after paracentesis we will start him on albumin therapy for the next 24 hours watch his blood pressures continue checking orthostatic vitals PDMP PDMP Reviewed: Not Reviewed Attestations 2 Medical Necessity Statement*: Patient requires hospitalization for hypotension, hyponatremia, thrombocytopenia Diagnoses Acute hyponatremia E87.1 Alcoholic cirrhosis of liver K70.30 Hepatorenal syndrome K76.7 Chronic kidney disease N18.9 Thrombocytopenia D69.6 Chronic hypotension I95.89 Esophageal varices I85.00
[2024-04-09] MEDS: albumin 25 G/100 ML BAG 60 G IV ×2 (16:42→23:17)
[2024-04-09 17:09] LABS: Anion Gap 19.4 (5-19); Blood Urea Nitrogen 47 mg/dL (6-20); Calcium 9.3 mg/dL (8.5-10.5); Carbon Dioxide 24 mmol/L (22-29); Chloride 98 mmol/L (98-107); Creatinine Clr Calc Pharmacy 29.2998; Glomerular Filtration Rate 24.2 mL/min (90-130); Glucose 136 mg/dL (65-115); Osmolality Calculated 300 mOsm/kg (285-295); Potassium 3.4 mmol/L (3.5-5.1); Sodium 138 mmol/L (136-145)
[2024-04-09] MEDS: metoclopramide 10 mg Tablet 5 MG PO (23:20)
[2024-04-10] VITALS (13 sets, daily range): BP systolic 94–108; BP diastolic 53–89; PULSE 72–84; RESP 16–18; TEMP 36.4–36.8; O2SAT 92–100
[2024-04-10] MEDS: oxyCODONE 5 mg IR Tab/Cap PO ×2 (01:00→11:15)
[2024-04-10] MEDS: hydrocortisone 10 mg Tablet 5 MG PO ×2 (02:01→07:51)
[2024-04-10] MEDS: pantoprazole DR 40 mg Tablet PO ×2 (02:01→13:49)
[2024-04-10 05:27] LABS: Eosinophils # 0.1 10^3/uL (0.0-0.8); Eosinophils % 2.4 %; Lymphocytes # 0.4 10^3/uL (0.8-4.8); Mean Corpuscular HGB Conc 36.9 g/dL (30-55); Mean Corpuscular Hemoglobin 35.4 pg (27-33); Mean Corpuscular Volume 95.8 fl (82-101); Mean Platelet Volume 10.9 fL (7.4-10.4); Monocytes # 0.8 10^3/uL (0.2-0.9); Monocytes % 13.7 %; Neutrophils # 4.46 10^3/uL (1.8-7.7); Neutrophils % 76.6 %; Nucleated Red Blood Cells % 0 %; Platelet Count 57 10^3/cmm (157-399); Red Blood Count 2.12 10^6/uL (3.85-5.65); Red Cell Distribution Width 21.8 % (12.1-15.1); White Blood Count 5.83 10^3/uL (3.29-11.43)
[2024-04-10 05:40] LABS: INR 1.79 (0.8-1.2)
[2024-04-10 05:45] LABS: Alanine Aminotransferase 53 U/L (0-41); Albumin Level 4.2 g/dL (3.5-5.2); Alkaline Phosphatase 100 U/L (40-130); Anion Gap 18.4 (5-19); Aspartate Amino Transferase 65 U/L (0-40); Blood Urea Nitrogen 44 mg/dL (6-20); Calcium 9.1 mg/dL (8.5-10.5); Carbon Dioxide 24 mmol/L (22-29); Chloride 101 mmol/L (98-107); Creatinine Clr Calc Pharmacy 30.4137; Globulin 1.6 g/dL (1.3-4.6); Glomerular Filtration Rate 25.2 mL/min (90-130); Glucose 107 mg/dL (65-115); Osmolality Calculated 302 mOsm/kg (285-295); Potassium 3.4 mmol/L (3.5-5.1); Sodium 140 mmol/L (136-145); Total Protein 5.8 g/dL (6.6-8.7)
[2024-04-10 05:58] LABS: Hematocrit 20.3 % (37-53)
[2024-04-10] MEDS: midodrine 5 mg TABLET 10 MG PO ×2 (07:51→13:49)
[2024-04-10] MEDS: fludrocortisone 0.1 mg Tablet PO (07:51)
[2024-04-10] MEDS: sodium bicarbonate 650 mg Tablet 1300 MG PO ×2 (07:51→13:49)
[2024-04-10] MEDS: sucralfate 1 gm Tablet PO (07:51)
[2024-04-10] MEDS: potassium chloride ER 20 mEq Tablet PO (07:52)
[2024-04-10] MEDS: rifaximin 200 mg Tablet 600 MG PO (07:52)
[2024-04-10] MEDS: sodium chloride 1 gm Tablet PO (07:52)
[2024-04-10] MEDS: lactulose oral liq 20 gm/30 mL UDC 10 GM PO (07:52)
[2024-04-10] MEDS: albumin 25 G/100 ML BAG 60 G IV (07:53)
[2024-04-10] MEDS: ondansetron 2 mg/ML SDV 2 mL 4 MG IVP (08:05)
--- NOTE | 2024-04-10 12:20 | PC.NURSE ---
Discharge pending blood transfusion.
--- NOTE | 2024-04-10 12:55 | P.DS_ITS ---
Discharge Providers Date of Admission: 04/05/24 10:05 Date of Discharge: April 10, 2024 Attending Provider at Admission: Jamir Mcginnis MD Attending Provider at Discharge: Fortino Wagoner MD Primary Care Provider: Alia Sanchez MD Diagnoses at Discharge Discharge Diagnosis (1) Acute hyponatremia: Status: Acute (2) Alcoholic cirrhosis of liver: Status: Acute (3) Hepatorenal syndrome: Status: Acute (4) Chronic kidney disease: Status: Chronic (5) Thrombocytopenia: Status: Acute (6) Chronic hypotension: Status: Acute (7) Esophageal varices: Status: Acute Reason for Visit Reason for Visit: foster called parvin bullock sent to er Hospital Course Hospital Course This is a 48-year-old male with a past medical history of 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 Patient's cortisol levels were 7.98, thought to be inappropriate response to patient's acute on chronic hypotension; with patient's hyponatremia, persistent hypotension there was significant concern and suspicion for adrenal insufficiency as an etiology. Patient was placed on hydrocortisone fludrocortisone, with improvement of patient's hyponatremia and chronic persistent hypotension. Patient will be discharged on hydrocortisone fludrocortisone with a close follow-up with Dr. Davis as outpatient for more formal testing for adrenal insufficiency. Serum sodium on discharge 140, blood pressure 108/89 Patient's hospitalization was complicated with recurrent ascites requiring paracentesis, over 7 L removed Hospitalization was complicated with acute on chronic kidney injury, improved on discharge, 2.7 INR is 1.79, monitor as outpatient, he did have complaints of a nosebleed which was transient, resolved at discharge Hemoglobin 7.5, hematocrit 20.3, received 1 unit PRBC on day of discharge no bloody black stools reported, follow-up with primary care During his hospitalization, there was plans on transferring patient to [facility] as a liver became available for him, however patient's donor was not doing well and transfer was canceled, advised patient to follow-up with his transplant team at [place] Physical Exam Const: COMMON NORMALS: no acute distress and patient oriented x3 Resp: COMMON NORMALS: normal respiratory effort, No retractions, No use of accessory muscles and clear to auscultation bilaterally AUSCULTATION: clear to auscultation bilaterally Cardio: COMMON NORMALS: regular rate, regular rhythm, S1 normal heart sound present and S2 normal heart sound present RATE: regular rate RHYTHM: regular rhythm HEART SOUNDS: S1 normal heart sound present and S2 normal heart sound present GI: COMMON NORMALS: Normal to inspection, nondistended, normoactive bowel sounds present and non-tender Extremity: COMMON NORMALS: no pedal edema Neuro: COMMON NORMALS: patient oriented x3 Psych: COMMON NORMALS: mental status grossly normal Discharge Data Studies Completed and Pending Completed Studies During Hospitalization Category Date Time Status US abdomen limited [id number] Routine Ultrasound 04/07/24 14:50 [place] w [id number] Routine Ultrasound 04/08/24 09:16 Completed Pending at discharge Category Date Time Status Complete Blood Count w/Auto AM LABS Lab 04/11/24 04:00 Ordered Comprehensive Metabolic Panel AM LABS Lab 04/11/24 04:00 Ordered Leukocyte Reduced RBC Stat Lab 04/10/24 08:41 Results Prothrombin Time INR AM LABS Lab 04/11/24 04:00 Ordered Type and Screen Stat Lab 04/10/24 08:41 Results Radiology Impressions Abdomen Ultrasound 04/07/24 14:50 IMPRESSION: See above Paracentesis Ultrasound 04/08/24 09:16 IMPRESSION: Uncomplicated ultrasound-guided paracentesis. Removal of 7175 cc Laboratory Results WBC 5.83 10^3/uL (3.29-11.43) 04/10/24 05:06 RBC 2.12 10^6/uL (3.85-5.65) L 04/10/24 05:06 Hgb 7.50 g/dL (11.27-16.99) L 04/10/24 05:06 Hct 20.3 % (37-53) L* 04/10/24 05:06 MCV 95.8 fl (82-101) 04/10/24 05:06 MCH 35.4 pg (27-33) H 04/10/24 05:06 MCHC 36.9 g/dL (30-55) 04/10/24 05:06 RDW 21.8 % (12.1-15.1) H 04/10/24 05:06 Plt Count 57 10^3/cmm (157-399) L 04/10/24 05:06 MPV 10.9 fL (7.4-10.4) H 04/10/24 05:06 Neut % (Auto) 76.6 % 04/10/24 05:06 Lymph % (Auto) 7.0 % 04/10/24 05:06 [place] % (Auto) 13.7 % 04/10/24 05:06 Eos % (Auto) 2.4 % 04/10/24 05:06 Baso % (Auto) 0.0 % 04/10/24 05:06 Neut # (Auto) 4.46 10^3/uL (1.8-7.7) 04/10/24 05:06 Lymph # (Auto) 0.4 10^3/uL (0.8-4.8) L 04/10/24 05:06 [place] # (Auto) 0.8 10^3/uL (0.2-0.9) 04/10/24 05:06 Eos # (Auto) 0.1 10^3/uL (0.0-0.8) 04/10/24 05:06 Baso # (Auto) 0.0 10^3/uL (0.0-0.1) 04/10/24 05:06 Nucleated RBC % (auto) 0 % 04/10/24 05:06 Nucleated RBCs # 0.0 /100WBC 04/10/24 05:06 PT 21.90 SECONDS (12.1-14.9) H 04/10/24 05:06 INR 1.79 (0.8-1.2) H 04/10/24 05:06 Sodium 140 mmol/L (136-145) 04/10/24 05:06 Potassium 3.4 mmol/L (3.5-5.1) L 04/10/24 05:06 Chloride 101 mmol/L (98-107) 04/10/24 05:06 Carbon Dioxide 24 mmol/L (22-29) 04/10/24 05:06 Anion Gap 18.4 (5-19) 04/10/24 05:06 BUN 44 mg/dL (6-20) H 04/10/24 05:06 Creatinine 2.7 mg/dL (0.7-1.2) H 04/10/24 05:06 GFR Calculation 25.2 mL/min (90-130) L 04/10/24 05:06 Glucose 107 mg/dL (65-115) 04/10/24 05:06 Calculated Osmolality 302 mOsm/kg (285-295) H 04/10/24 05:06 Lactic Acid 2.7 mmol/L (0.5-2.2) H 04/03/24 19:03 Lactic Acid (Sepsis) 2.5 mmol/L (0.5-2.2) H 04/03/24 21:50 Uric Acid 3.7 mg/dL (3.4-7.0) 04/05/24 09:03 Calcium 9.1 mg/dL (8.5-10.5) 04/10/24 05:06 Magnesium 2.3 mg/dL (1.7-2.3) 04/03/24 19:03 Total Bilirubin 2.0 mg/dL (0.15-1.2) H 04/10/24 05:06 Direct Bilirubin 0.80 mg/dL (0.00-0.30) H 04/08/24 12:04 AST 65 U/L (0-40) H 04/10/24 05:06 ALT 53 U/L (0-41) H 04/10/24 05:06 Alkaline Phosphatase 100 U/L (40-130) 04/10/24 05:06 Total Protein 5.8 g/dL (6.6-8.7) L 04/10/24 05:06 Albumin 4.2 g/dL (3.5-5.2) 04/10/24 05:06 Globulin 1.6 g/dL (1.3-4.6) 04/10/24 05:06 Procalcitonin 0.66 ng/mL (0-0.5) H 04/03/24 19:03 Random Cortisol 7.98 ug/dL (2.47-19.5) 04/05/24 18:10 Urine Color Yellow (Yellow) 04/03/24: Urine Appearance Clear (CLEAR) 04/03/24 20: Urine pH 5.5 (5-7) 04/03/24 20: Ur Specific [place] 1.015 (1.005-1.030) 04/03/24 20: Urine Protein Negative (Negative) 04/03/24 20: Urine Glucose (UA) Negative (Normal) 04/03/24 20: Urine Ketones Negative (Negative) 04/03/24 20: Urine Blood Negative (Negative) 04/03/24 20: Urine Nitrate Negative (Negative) 04/03/24 20: Urine Bilirubin Negative (Negative) 04/03/24 20: Urine Urobilinogen 0.2 mg/dL (Negative) 04/03/24 20: Ur Leukocyte Esterase Negative (Negative) 04/03/24 20: Urine RBC 0-2 /hpf (0-2) 04/03/24 20: Urine WBC 0-5 /hpf (0-5) 04/03/24 20: Ur Squamous Epith Cells 0-5 /hpf (0-5) 04/03/24 20: Amorphous Sediment Not Reportable 04/03/24 20: Urine Bacteria None seen /hpf (NONE) 04/03/24 20: Hyaline Casts 4.95 /lpf 04/03/24 20:26 Ur Random Sodium 136 mmol/L 04/05/24 10:29 Ur Random Potassium 14 mmol/L 04/04/24 04:10 Ur Random Chloride < 10 mmol/L 04/04/24 04:10 Coronavirus (PCR) Negative (Negative) 04/03/24 18:17 Influenza A (PCR) Negative (Negative) 04/03/24 18:17 Influenza Type B (PCR) Negative (Negative) 04/03/24 18:17 RSV (PCR) Negative (Negative) 04/03/24 18:17 Blood Type A Negative 04/10/24 08:41 Rho(D) Type Rh negative 04/10/24 08:41 Antibody Screen Negative 04/10/24 08:41 Crossmatch See Detail 04/10/24 08:41 Vitals Last Vital Signs Temp 98.2 F 04/10/24 11:57 Pulse 82 04/10/24 11:57 Resp 17 04/10/24 11:57 BP 108/89 04/10/24 11:57 Pulse Ox 100 04/10/24 11:57 O2 Del Method Room Air 04/10/24 11:57 Discharge Plan Discharge Patient Disposition: Home Condition: Stable Prescriptions: New hydrocortisone 10 mg Tablet See Rx Instructions .ROUTE .COMPLEX Qty: 60 0RF Rx Instructions: Take 10 mg tablet in the morning, 5 mg at noon, 2.5 mg in the afternoon fludrocortisone 0.1 mg Tablet 0.1 mg PO DAILY 30 Days Qty: 30 0RF sodium chloride 1,000 mg Tablet,Soluble 1,000 mg PO BID 30 Days Qty: 60 0RF Continued ondansetron HCl 4 mg tablet 4 mg PO Q8H PRN (Reason: Nausea And Vomiting) 30 Days Qty: 30 0RF albuterol sulfate [Ventolin HFA] 90 mcg/actuation HFA aerosol inhaler 2 inh inhalation Q6H PRN (Reason: shortness of breath or wheezing) Qty: 6.7 0RF lactulose [Constulose] 10 gram/15 mL solution 15 ml PO BID PRN (Reason: Stomach Upset) pantoprazole 40 mg tablet,delayed release (DR/EC) 40 mg PO Q12H 30 Days Qty: 60 0RF sucralfate 1 gram tablet 1 g PO BID midodrine 5 mg tablet 10 mg PO TID metoclopramide HCl 5 mg tablet 5 mg PO BID PRN (Reason: Nausea And Vomiting) rifaximin 550 mg Tablet 550 mg PO BID Asmanex Twisthaler 110 mcg/ actuation (30) Aerosol Powdr Breath Activated 2 inh INHALATION DAILY Rx Instructions: administer 1 hour before bedtime tramadol 50 mg tablet 50 mg PO Q8H PRN (Reason: pain) Qty: 10 0RF Discontinued allopurinol 300 mg Tablet 300 mg PO DAILY Discharge Orders: Discharge Order (Routine); Ordered 04/10/24 Ordered By: Fortino Wagoner Referrals: Alia Sanchez MD [Primary Care Provider] - 04/15/24 11:30 am Abimbola Davis MD [Physician] - 1 week (adrenal insufficiency We have notified your physician's clinic of the need for a follow-up appointment to be scheduled. If you have not heard from them within the next 2 business days, please call them directly. ) Discharge Diet: Regular Discharge Activity: Increase activity as tolerated Patient Instructions: Opioid Safety, Pain Management Activity Restrictions/Additional Instructions: - Please follow-up with primary care -Follow-up with Dr. Davis for concerns for adrenal insufficiency -If any chest pain or shortness of breath please go to emergency room Discharge Attestations Time Spent in Discharge Care*: greater than 30 min Status at Discharge: Cognitive status at discharge: cognitively intact , Behavioral status at discharge: cooperative , Quality Metrics Clinical Quality Measures [ No reported AMI, CVA or VTE this stay] Coding Level of Care Code 95976 Total time (in minutes) for Discharge: 45 Diagnoses Acute hyponatremia E87.1 Alcoholic cirrhosis of liver K70.30 Hepatorenal syndrome K76.7 Chronic kidney disease N18.9 Thrombocytopenia D69.6 Chronic hypotension I95.89 Esophageal varices I85.00
== END 2024-04-10 16:53 | disposition home or self-care (01) | DRG 640 ==
LOC: ER 21:32 → ER IP 04-04 05:39 → MEDSURG 04-04 12:48
PROVIDERS: Internal Medicine; Admitting Provider Internal Medicine; Emergency Provider Emergency Medicine; PCP Family Medicine; Visit Provider Family Medicine
DX: E87.1 Hypo-osmolality and hyponatremia (principal); K76.7 Hepatorenal syndrome; I85.00 Esophageal varices without bleeding; E27.40 Unspecified adrenocortical insufficiency; N17.9 Acute kidney failure, unspecified; K70.31 Alcoholic cirrhosis of liver with ascites; N18.9 Chronic kidney disease, unspecified; D69.6 Thrombocytopenia, unspecified; I95.9 Hypotension, unspecified; R04.0 Epistaxis; Z87.891 Personal history of nicotine dependence
CPT/HCPCS: 36415; 36430; 49083; 76705; 80048; 80053; 80076; 81001; 82436; 82533; 83605; 83735; 84133; 84145; 84295; 84300; 84550; 85025; 85610; 86850; 86900; 86920; 87040; 87637; 93005; 96365; 96366; 96372; 96375; 97110; 97161; 99285; G0378; J1720; J2354; J2405; J3490; J7030; J7131; J8499; J8597; P9016; P9046; P9047; Q3014

== ENCOUNTER 2024-04-14 11:01 | Day surgery (SDC) | payer OTHER, SELFPAY ==
--- NOTE | 2024-04-14 11:44 | US_ITS ---
WS: [id number] ULTRASOUND-GUIDED THERAPEUTIC AND DIAGNOSTIC PARACENTESIS Procedure, risks, and complications have been explained to the patient. Consent is obtained. Utilizing aseptic technique and 1% buffered lidocaine, a small dermatome was made through which a 5 [place]ian Yueh catheter was inserted. Approximately 6800 ml of clear peritoneal fluid was obtained without difficulty. No complications encountered. Specimen collected for analysis. US/US paracentesis abd w [id number] IMPRESSION: Uncomplicated paracentesis yielding 6800 ml of peritoneal fluid.
[2024-04-14 12:16] VITALS: BP 114/73; PULSE 94; RESP 16; TEMP 36.5; O2SAT 97
[2024-04-14 12:45] LABS: INR 1.21 (0.8-1.2)
[2024-04-14 12:52] LABS: Alanine Aminotransferase 45 U/L (0-41); Albumin Level 4.7 g/dL (3.5-5.2); Alkaline Phosphatase 113 U/L (40-130); Aspartate Amino Transferase 51 U/L (0-40); Blood Urea Nitrogen 40 mg/dL (6-20); Calcium 9.4 mg/dL (8.5-10.5); Carbon Dioxide 21 mmol/L (22-29); Chloride 100 mmol/L (98-107); Creatinine Clr Calc Pharmacy 39.9878; Globulin 1.6 g/dL (1.3-4.6); Glomerular Filtration Rate 33.7 mL/min (90-130); Glucose 110 mg/dL (65-115); Osmolality Calculated 290 mOsm/kg (285-295); Sodium 135 mmol/L (136-145); Total Bilirubin 5.1 mg/dL (0.15-1.2); Total Protein 6.3 g/dL (6.6-8.7)
[2024-04-14 13:05] LABS: Anion Gap 17.8 (5-19); Potassium 3.8 mmol/L (3.5-5.1)
[2024-04-14] MEDS: albumin 25 G/100 ML BAG 500 G IV (13:13)
[2024-04-14 13:37] LABS: Body Fluid Polynuclear #Cells 0.009; Body Fluid WBC 50 /uL; Monocytes # Body Fluid 0.041
[2024-04-14 13:44] LABS: Cyto Order Verification No Order
[2024-04-14 14:13] LABS: Apprearance, Body Fluid CLOUDY; Color, Body Fluid YELLOW; Fluid Laterality PARA FLUID; PATH Referral YES
[2024-04-15 12:35] LABS: Cystatin C 3.13 mg/L (0.52-1.27); Estimated GFR (Cystatin C) 18 (> OR = 60)
== END 2024-04-14 13:35 | disposition home or self-care (01) ==
PROVIDERS: Radiology Diagnostic Radiology; PCP Family Medicine; Visit Provider Internal Medicine Gastroenterology
PROC: (CPT 49082; principal; 2024-04-14 12:30)
DX: R18.8 Other ascites (principal)
CPT/HCPCS: 49083; 80053; 80503; 82610; 85610; 87070; 87075; 87205; 89050; 96365; P9046

== ENCOUNTER → 2024-04-21 10:58 | Day surgery (SDC) | payer OTHER, SELFPAY ==
[2024-04-21 11:30] VITALS: BP 106/77; PULSE 86; RESP 18; TEMP 36.6; O2SAT 95
--- NOTE | 2024-04-21 11:38 | US_ITS ---
WS: [email or web address] ULTRASOUND-GUIDED PARACENTESIS CLINICAL INFORMATION: ascites COMPARISON: None. Procedure Informed consent: The risks, benefits, and alternatives of the procedure were discussed with the patient. Verbal and written consent was obtained. Timeout: A timeout was performed to confirm the correct patient, procedure, and site. Preparation: A suitable skin site was identified. The patient was prepped and draped in usual sterile fashion. Lidocaine 1% was used for local anesthesia. Catheter: 4 [place] One-step Yueh catheter. Side: LEFT lower quadrant. Fluid Volume: 8500 ml Color: Clear yellow Complications: None. Patient disposition: Discharged from the department in stable condition. US/US paracentesis abd w [id number] IMPRESSION: Uncomplicated ultrasound-guided paracentesis. Removal of 8500 cc
[2024-04-21 12:17] LABS: INR 1.11 (0.8-1.2)
[2024-04-21 12:30] LABS: Alanine Aminotransferase 54 U/L (0-41); Albumin Level 4.6 g/dL (3.5-5.2); Alkaline Phosphatase 151 U/L (40-130); Aspartate Amino Transferase 65 U/L (0-40); Blood Urea Nitrogen 46 mg/dL (6-20); Calcium 9.7 mg/dL (8.5-10.5); Carbon Dioxide 20 mmol/L (22-29); Chloride 100 mmol/L (98-107); Creatinine Clr Calc Pharmacy 29.3356; Globulin 2.6 g/dL (1.3-4.6); Glomerular Filtration Rate 24.2 mL/min (90-130); Glucose 133 mg/dL (65-115); Osmolality Calculated 292 mOsm/kg (285-295); Sodium 134 mmol/L (136-145); Total Protein 7.2 g/dL (6.6-8.7)
[2024-04-21 12:31] LABS: Anion Gap 17.5 (5-19); Potassium 3.5 mmol/L (3.5-5.1)
[2024-04-21 12:34] LABS: Cyto Order Verification No Order
[2024-04-21 12:47] LABS: Mononuclear #, Pertinoneal Fl 0.034 10^3/uL; Polynuclear # Cells, Perit 0.004 10^3/uL; RBC Pertioneal Fluid 1 10^3/uL; WBC Peritoneal Fluid 38 /uL
[2024-04-21] MEDS: albumin 50 G/200 ML BAG 60 G IV (13:02)
[2024-04-21 13:30] LABS: Appearance, Peritoneal Fluid Cloudy (Clear); Color, Peritoneal Fluid Yellow (Pale Yellow)
[2024-04-23 15:34] LABS: Cystatin C 3.47 mg/L (0.52-1.27); Estimated GFR (Cystatin C) 16 (> OR = 60)
== END ==
LOC: GILAB 10:59
PROVIDERS: Radiology Neuroradiology; PCP Family Medicine; Visit Provider Internal Medicine Gastroenterology
PROC: (CPT 49082; principal; 2024-04-21 12:30)
DX: R18.8 Other ascites (principal)
CPT/HCPCS: 49083; 80053; 80503; 82610; 85610; 87070; 87075; 87205; 89050; 96365; P9046

== ENCOUNTER 2024-04-28 11:25 | Day surgery (SDC) | payer OTHER, SELFPAY ==
--- NOTE | 2024-04-28 11:34 | US_ITS ---
WS: [id number] ULTRASOUND-GUIDED THERAPEUTIC AND DIAGNOSTIC PARACENTESIS Procedure, risks, and complications have been explained to the patient. Consent is obtained. Utilizing aseptic technique and 1% buffered lidocaine, a small dermatome was made through which a 5 Japanese Yueh catheter was inserted. Approximately 6000 ml of clear peritoneal fluid was obtained without difficulty. No complications encountered. Ascites collected for analysis. US/US paracentesis abd w [id number] IMPRESSION: Uncomplicated paracentesis yielding 6000 ml of peritoneal fluid.
[2024-04-28 12:08] VITALS: BP 106/67; PULSE 75; RESP 18; TEMP 36.5; O2SAT 99; BMI 20.5
[2024-04-28 12:45] LABS: Appearance, Peritoneal Fluid Cloudy (Clear); Color, Peritoneal Fluid Yellow (Pale Yellow); Cyto Order Verification No Order; Pathology Referral Yes
[2024-04-28 12:46] LABS: INR 1.21 (0.8-1.2)
[2024-04-28 12:51] LABS: Mononuclear #, Pertinoneal Fl 0.038 10^3/uL; Polynuclear # Cells, Perit 0.003 10^3/uL; RBC Pertioneal Fluid 1 10^3/uL; WBC Peritoneal Fluid 41 /uL
[2024-04-28 12:56] LABS: Alanine Aminotransferase 44 U/L (0-41); Alkaline Phosphatase 123 U/L (40-130); Anion Gap 17.9 (5-19); Aspartate Amino Transferase 46 U/L (0-40); Blood Urea Nitrogen 38 mg/dL (6-20); Calcium 9.4 mg/dL (8.5-10.5); Carbon Dioxide 18 mmol/L (22-29); Chloride 96 mmol/L (98-107); Creatinine Clr Calc Pharmacy 30.6769; Globulin 2.2 g/dL (1.3-4.6); Glomerular Filtration Rate 25.2 mL/min (90-130); Glucose 127 mg/dL (65-115); Osmolality Calculated 277 mOsm/kg (285-295); Potassium 3.9 mmol/L (3.5-5.1); Sodium 128 mmol/L (136-145); Total Bilirubin 3.8 mg/dL (0.15-1.2); Total Protein 6.2 g/dL (6.6-8.7)
== END 2024-04-28 13:50 | disposition home or self-care (01) ==
PROVIDERS: Radiology Diagnostic Radiology; PCP Family Medicine; Visit Provider Internal Medicine Gastroenterology
PROC: (CPT 49082; principal; 2024-04-28 13:00)
DX: R18.8 Other ascites (principal)
CPT/HCPCS: 36415; 49083; 80053; 80503; 82610; 85610; 87070; 87075; 87205; 89050

== ENCOUNTER 2024-05-01 00:45 | Emergency (ER) | payer OTHER, SELFPAY ==
[2024-05-01 00:51] VITALS: BP 112/77; PULSE 100; RESP 18; TEMP 36.6; O2SAT 100
--- NOTE | 2024-05-01 01:21 | XRR_ITS ---
PROCEDURE INFORMATION: Exam: XR Chest Exam date and time: 05/01/2024 1:43 AM Age: 48 years old Clinical indication: Shortness of breath and other: Weakness; Additional info: Altered ms, weakness TECHNIQUE: Imaging protocol: Radiologic exam of the chest. Views: 1 view. COMPARISON: CR XR chest 1V portable [id number] 03/15/2024 4:06 PM FINDINGS: Lungs: Unremarkable. No consolidation. Pleural spaces: Unremarkable. No pleural effusion. No pneumothorax. Heart/Mediastinum: Unremarkable. No cardiomegaly. Bones/joints: Unremarkable. XR/XR chest 1V portable [id number] IMPRESSION: No acute findings.
[2024-05-01 01:22] VITALS: RESP 18
[2024-05-01 01:32] VITALS: BP 111/73; PULSE 96; RESP 18; O2SAT 100
[2024-05-01 01:42] LABS: Basophils # 0.1 10^3/uL (0.0-0.1); Basophils % 0.6 %; Eosinophils # 0.3 10^3/uL (0.0-0.8); Hematocrit 30.5 % (37-53); Lymphocytes # 0.5 10^3/uL (0.8-4.8); Lymphocytes % 5.7 %; Mean Corpuscular HGB Conc 36.7 g/dL (30-55); Mean Corpuscular Hemoglobin 35.3 pg (27-33); Mean Corpuscular Volume 96.2 fl (82-101); Monocytes # 1.4 10^3/uL (0.2-0.9); Monocytes % 16.2 %; Neutrophils # 6.13 10^3/uL (1.8-7.7); Neutrophils % 73.8 %; Nucleated Red Blood Cells % 0 %; Platelet Count 98 10^3/cmm (157-399); Red Blood Count 3.17 10^6/uL (3.85-5.65); White Blood Count 8.31 10^3/uL (3.29-11.43)
[2024-05-01 01:59] LABS: Alanine Aminotransferase 46 U/L (0-41); Albumin Level 4.5 g/dL (3.5-5.2); Alkaline Phosphatase 158 U/L (40-130); Anion Gap 19.3 (5-19); Aspartate Amino Transferase 56 U/L (0-40); Blood Urea Nitrogen 40 mg/dL (6-20); Calcium 9.5 mg/dL (8.5-10.5); Carbon Dioxide 18 mmol/L (22-29); Chloride 96 mmol/L (98-107); Creatinine Clr Calc Pharmacy 29.1718; Globulin 2.5 g/dL (1.3-4.6); Glomerular Filtration Rate 24.2 mL/min (90-130); Glucose 113 mg/dL (65-115); Osmolality Calculated 279 mOsm/kg (285-295); Potassium 4.3 mmol/L (3.5-5.1); Sodium 129 mmol/L (136-145); Total Bilirubin 2.9 mg/dL (0.15-1.2)
[2024-05-01 02:00] LABS: Ammonia 69 umol/L (16-60)
[2024-05-01 02:18] LABS: Influenza A NEGATIVE (Negative); Influenza B NEGATIVE (Negative); Respiratory Syncytial Virus Ce NEGATIVE (Negative); SARS-CoV-2 PCR NEGATIVE (Negative)
[2024-05-01 02:21] VITALS: BP 114/74; PULSE 92; RESP 18; O2SAT 95
[2024-05-01 02:27] LABS: Bilirubin Urine Negative (Negative); Blood Urine Negative (Negative); Glucose Urine UA Negative (Normal); Ketones Urine Trace (Negative); Leukocyte Esterase Urine Negative (Negative); Nitrate Urine Negative (Negative); Protein Urine Negative (Negative); Specific Gravity, Urine 1.019 (1.005-1.030); Urine Appearance Clear (CLEAR); Urine Color Dark Yellow (Yellow); pH Urine 5.5 (5-7)
[2024-05-01 02:31] LABS: Add Urine Microscopic? YES; Bacteria Urine None Seen /hpf; Hyaline Casts Urine 8.67 /lpf; RBC Urine 0-2 /hpf (0-2); Squamous Epithelial Cell Urine 0-5 /hpf (0-5); WBC Urine 0-5 /hpf (0-5)
[2024-05-01 02:49] LABS: UA Slide Review UA Slide Review Perf
[2024-05-01 02:51] VITALS: BP 108/77; PULSE 93; O2SAT 99
--- NOTE | 2024-05-01 04:34 | ED_ITS ---
HPI - Altered Mental Status 2 General: Chief Complaint: Altered Mental Status Stated Complaint: Confused,not feeling good Time Seen by Provider: 05/01/24 01:14 History of Present Illness: This patient is a 48-year-old white male who presents to the emergency department with confusion. Confusion started about 2 to 3 hours prior to arrival according to his . He has been ill all week with headache and feeling tired. He vomited twice. No cough or congestion. Patient does have a history of cirrhosis and is on a transplant list with [facility]. Related Data Home Medications ?Medication ?Instructions ?Recorded ?Confirmed mometasone 110 mcg/actuation(30 2 inh inhalation DAILY 01/31/24 04/25/24 doses) breath activated powder inhaler (Asmanex Twisthaler) metoclopramide HCl 5 mg tablet 5 mg PO BID PRN Nausea And Vomiting 02/06/24 04/25/24 midodrine 5 mg tablet 10 mg PO TID 02/06/24 rifaximin 550 mg tablet 550 mg PO BID 02/06/2404/25 lactulose 10 gram/15 mL oral 15 ml PO BID PRN Stomach Upset 02/29/24 04/25/24 solution (Constulose) sucralfate 1 gram tablet 1 g PO BID 04/04/24 04/25/24 Previous Rx's ?Medication ?Instructions ?Recorded ondansetron HCl 4 mg tablet 4 mg PO Q8H PRN Nausea And 01/02/24 Vomiting 30 days #30 tabs albuterol sulfate 90 mcg/actuation 2 inh inhalation Q6 H PRN shortness 01/08/24 aerosol inhaler (Ventolin HFA) of breath or wheezing # 6.7 grams tramadol 50 mg tablet 50 mg PO Q8H PRN pain #10 ta bs 02/02/24 pantoprazole 40 mg tablet,delayed 40 mg PO Q12H 30 day s #60 tabs 03/04/24 release fludrocortisone 0.1 mg tablet 0.1 mg PO DAILY 30 days #30 tabs 04/10/24 hydrocortisone 10 mg tablet See Rx Instructions .Route 04/10/24 .COMPLEX #60 tabs sodium chloride 1,000 mg soluble 1,000 mg PO BID 30 da ys #60 tabs 04/10/24 tablet Allergies Allergy/AdvReac Type Severity Reaction Status Date / Time No Known Allergies Allergy Verified 05/01/24 00:56 Review of Systems 2 General: Reports: 10 or more systems reviewed and unremarkable except in HPI and below Const: Reports: fatigue GI: Reports: nausea and vomiting Neuro: Reports: headache(s) and confusion PFSH ED 2 PFSH: Medical History (Updated 05/01/24 @ 02:44 by Corky Egan MD) SBP (spontaneous bacterial peritonitis) Acute hepatic failure Abdominal ascites Smoker Colitis Low oxygen saturation Enteropathy Smoking addiction Alcohol use disorder Thrombocytopenia Liver cirrhosis Hematuria Ascites due to alcoholic cirrhosis Abdominal pain 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 History of colon polyps Rectal polyp 10 and 15 cm, cecum biopsy Sigmoid colon polyp Seasonal allergies Splenomegaly Enterocolitis 2017 Surgical History (Updated 04/11/24 @ 00:00 by ELDA Sidhu) Status post colonoscopy with polypectomy H/O esophagogastroduodenoscopy Vasectomy status H/O left inguinal hernia repair Family History Denies family history of Cancer Social History Smoking and tobacco/nicotine status: former use of tobacco/nicotine Alcohol intake: former Substance/Drug Use: never Lives independently: Yes Housing: House Marital status: 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 Physical Exam 2 Const: COMMON NORMALS: no acute distress, patient oriented x3 and no limitations GENERAL APPEARANCE: cooperative and comfortable HENMT: COMMON NORMALS: normocephalic, atraumatic, Normal nasal mucous membranes and turbinates present, moist oral mucous membranes and oropharynx normal HEAD & SCALP: normal to inspection, normocephalic and atraumatic F KARINE & SINUS: normal facial exam NOSE: Normal nasal mucous membranes and turbinates present Eye: COMMON NORMALS: Equal, round and reactive pupils present, EOMs intact bilaterally and conjunctivae normal GENERAL EYE: appearance normal, both eyes and all related structures CONJUNCTIVA: Yes conjunctivae normal PUPIL: Yes Equal, round and reactive pupils present Neck/C-Spine: COMMON NORMALS: supple and no JVD Chest: COMMONS NORMALS: normal inspection of the chest Resp: COMMON NORMALS: normal respiratory effort and clear to auscultation bilaterally AUSCULTATION: clear to auscultation bilaterally Cardio: COMMON NORMALS: no JVD, regular rate, regular rhythm, No gallops present (Cardio), No murmurs present (Cardio) and No rub (Cardio) RATE: r egular rate RHYTHM: regular rhythm GI: COMMON NORMALS: Normal to inspection, nondistended, normoactive bowel sounds present, Soft to palpation and non-tender AUSCULTATION: Yes normoactive bowel sounds PALPATION: Yes Soft to palpation : COMMON NORMALS: Yes no CVA tenderness BLADDER/KIDNEY EXAM: Yes no CVA tenderness Back/Pelvis: COMMON NORMALS: no CVA tenderness and thoracic and lumbar spine normal to inspection Extremity: COMMON NORMALS: normal to inspection Neuro: COMMON NORMALS: patient oriented x3 and CN's II-XII intact bilaterally Psych: COMMON NORMALS: mental status grossly normal, Normal thought process present and cooperative THOUGHT PROCESS: Normal thought process present Skin: COMMON NORMALS: no rashes or lesions noted, turgor normal and no jaundice GENERAL SKIN EXAM: no rashes or lesions noted and turgor normal Course 2 Vital Signs: Vital signs: Vital Signs Temperature 98 F 05/01/24 00:51 Pulse Rate 93 05/01/24 02:51 Respiratory Rate 18 05/01/24 02:21 Blood Pressure 108/77 05/01/24 02:51 Pulse Oximetry 99 05/01/24 02:51 Oxygen Delivery Me thod Room Air 05/01/24 02:21 MDM - Altered Mental Status Medical Decision Making Chest x-ray was normal. CBC revealed a hemoglobin of 11.2 platelet count 98 these are stable. CMP revealed a BUN of 40 creatinine of 2.8 and total bili 2.9. These are all stable. LFTs all slightly elevated as well. Ammonia 69 which is within his normal range. He tested negative for influenza, RSV and COVID. Urinalysis was normal. Patient evidently had not been taking his lactulose. I recommended he start taking that to see if that helps with the confusion. He was discharged in stable condition instructed to follow-up with primary care physician in the next several days for recheck. Lab Data 05/01/24 01:35 05/01/24 01:35 Radiology Impressions Chest X-Ray 05/01/24 01:21 IMPRESSION: No acute findings. Laboratory Results WBC 8.31 10^3/uL (3.29-11.43) 05/01/24 01:35 Corrected WBC Cancelled 05/01/24 01:15 RBC 3.17 10^6/uL (3.85-5.65) L 05/01/24 01:35 Hgb 11.20 g/dL (11.27-16.99) L 05/01/24 01:35 Hct 30.5 % (37-53) L 05/01/24 01:35 MCV 96.2 fl (82-101) 05/01/24 01:35 MCH 35.3 pg (27-33) H 05/01/24 01:35 MCHC 36.7 g/dL (30-55) 05/01/24 01:35 RDW 23.0 % (12.1-15.1) H 05/01/24 01:35 Plt Count 98 10^3/cmm (157-399) L 05/01/24 01:35 MPV 10.0 fL (7.4-10.4) 05/01/24 01:35 Gran % Cancelled 05/01/24 01:15 Neut % (Auto) 73.8 % 05/01/24 01:35 Lymph % (Auto) 5.7 % 05/01/24 01:35 [place] % (Auto) 16.2 % 05/01/24 01:35 Eos % (Auto) 3.0 % 05/01/24 01:35 Baso % (Auto) 0.6 % 05/01/24 01:35 Neut # (Auto) 6.13 10^3/uL (1.8-7.7) 05/01/24 01:35 Lymph # (Auto) 0.5 10^3/uL (0.8-4.8) L 05/01/24 01:35 [place] # (Auto) 1.4 10^3/uL (0.2-0.9) H 05/01/24 01:35 Eos # (Auto) 0.3 10^3/uL (0.0-0.8) 05/01/24 01:35 Baso # (Auto) 0.1 10^3/uL (0.0-0.1) 05/01/24 01:35 Absolute Gran (auto) Cancelled 05/01/24 01:15 Nucleated RBC % (auto) 0 % 05/01/24 01:35 Nucleated RBCs # 0.0 /100WBC 05/01/24 01:35 Sodium 129 mmol/L (136-145) L 05/01/24 01:35 Potassium 4.3 mmol/L (3.5-5.1) 05/01/24 01:35 Chloride 96 mmol/L (98-107) L 05/01/24 01:35 Carbon Dioxide 18 mmol/L (22-29) L 05/01/24 01:35 Anion Gap 19.3 (5-19) H 05/01/24 01:35 BUN 40 mg/dL (6-20) H 05/01/24 01:35 Creatinine 2.8 mg/dL (0.7-1.2) H 05/01/24 01:35 GFR Calculation 24.2 mL/min (90-130) L 05/01/24 01:35 Glucose 113 mg/dL (65-115) 05/01/24 01:35 Calculated Osmolality 279 mOsm/kg (285-295) L 05/01/24 01:35 Calcium 9.5 mg/dL (8.5-10.5) 05/01/24 01:35 Total Bilirubin 2.9 mg/dL (0.15-1.2) H 05/01/24 01:35 AST 56 U/L (0-40) H 05/01/24 01:35 ALT 46 U/L (0-41) H 05/01/24 01:35 Alkaline Phosphatase 158 U/L (40-130) H 05/01/24 01:35 Ammonia 69 umol/L (16-60) H 05/01/24 01:35 Total Protein 7.0 g/dL (6.6-8.7) 05/01/24 01:35 Albumin 4.5 g/dL (3.5-5.2) 05/01/24 01:35 Globulin 2.5 g/dL (1.3-4.6) 05/01/24 01:35 Urine Color Dark yellow (Yellow) A 05/01/24 02:19 Urine Appearance Clear (CLEAR) 05/01/24 02:19 Urine pH 5.5 (5-7) 05/01/24 02:19 Ur Specific [place] 1.019 (1.005-1.030) 05/01/24 02:19 Urine Protein Negative (Negative) 05/01/24 02:19 Urine Glucose (UA) Negative (Normal) 05/01/24 02:19 Urine Ketones Trace (Negative) 05/01/24 02:19 Urine Blood Negative (Negative) 05/01/24 02:19 Urine Nitrate Negative (Negative) 05/01/24 02:19 Urine Bilirubin Negative (Negative) 05/01/24 02:19 Urine Urobilinogen 1.0 mg/dL (Negative) 05/01/24 02:19 Ur Leukocyte Esterase Negative (Negative) 05/01/24 02:19 Urine RBC 0-2 /hpf (0-2) 05/01/24 02:19 Urine WBC 0-5 /hpf (0-5) 05/01/24 02:19 Ur Squamous Epith Cells 0-5 /hpf (0-5) 05/01/24 02:19 Amorphous Sediment Not Reportable 05/01/24 02:19 Urine Bacteria None seen /hpf (NONE) 05/01/24 02:19 Hyaline Casts 8.67 /lpf 05/01/24 02:19 Influenza A (PCR) Negative (Negative) 05/01/24 01:35 Influenza Type B (PCR) Negative (Negative) 05/01/24 01:35 RSV (PCR) Negative (Negative) 05/01/24 01:35 SARS-CoV-2 (PCR) Negative (Negative) 05/01/24 01:35 All radiology interpretation(s) finalized by discharge Discharge Plan Discharge Patient Disposition: Home Clinical Impression: Confusion Liver cirrhosis Qualifiers: Hepatic cirrhosis type: unspecified hepatic cirrhosis Ascites presence: with ascites Qualified Code(s): K74.60 - Unspecified cirrhosis of liver Condition: Stable Prescriptions: No Action ondansetron HCl 4 mg tablet 4 mg PO Q8H PRN (Reason: Nausea And Vomiting) 30 Days Qty: 30 0RF albuterol sulfate [Ventolin HFA] 90 mcg/actuation HFA aerosol inhaler 2 inh inhalation Q6H PRN (Reason: shortness of breath or wheezing) Qty: 6.7 0RF lactulose [Constulose] 10 gram/15 mL solution 15 ml PO BID PRN (Reason: Stomach Upset) pantoprazole 40 mg tablet,delayed release (DR/EC) 40 mg PO Q12H 30 Days Qty: 60 0RF sucralfate 1 gram tablet 1 g PO BID fludrocortisone 0.1 mg Tablet 0.1 mg PO DAILY 30 Days Qty: 30 0RF hydrocortisone 10 mg Tablet See Rx Instructions .ROUTE .COMPLEX Qty: 60 0RF Rx Instructions: Take 10 mg tablet in the morning, 5 mg at noon, 2.5 mg in the afternoon sodium chloride 1,000 mg Tablet,Soluble 1,000 mg PO BID 30 Days Qty: 60 0RF midodrine 5 mg tablet 10 mg PO TID metoclopramide HCl 5 mg tablet 5 mg PO BID PRN (Reason: Nausea And Vomiting) rifaximin 550 mg Tablet 550 mg PO BID Asmanex Twisthaler 110 mcg/ actuation (30) Aerosol Powdr Breath Activated 2 inh INHALATION DAILY Rx Instructions: administer 1 hour before bedtime tramadol 50 mg tablet 50 mg PO Q8H PRN (Reason: pain) Qty: 10 0RF Discharge Orders: Discharge ED (Routine); Ordered 05/01/24 Ordered By: Corky Egan Referrals: Alia Sanchez MD [Primary Care Provider] - Patient Instructions: Altered Mental Status (ED) Activity Restrictions/Additional Instructions: Follow-up with your primary care physician and/or liver specialist for ongoing management. Print Language: Kosovan Coding Level of Care Code ED Radiation Therapist for Jess López
== END 2024-05-01 02:51 | disposition home or self-care (01) ==
PROVIDERS: Emergency Provider Emergency Medicine; PCP Family Medicine
DX: R41.0 Disorientation, unspecified (principal); K74.60 Unspecified cirrhosis of liver; Z11.52 Encounter for screening for COVID-19; Z87.891 Personal history of nicotine dependence
CPT/HCPCS: 36415; 71045; 80053; 81001; 82140; 85025; 87040; 87637; 99284

== ENCOUNTER 2024-05-05 11:09 | Day surgery (SDC) | payer OTHER, SELFPAY ==
[2024-05-05 11:37] VITALS: BP 135/92; PULSE 104; RESP 18; TEMP 36.2; O2SAT 99
--- NOTE | 2024-05-05 11:58 | US_ITS ---
WS: [id number] ULTRASOUND-GUIDED PARACENTESIS CLINICAL INFORMATION: ascites COMPARISON: None. Procedure Informed consent: The risks, benefits, and alternatives of the procedure were discussed with the patient. Verbal and written consent was obtained. Timeout: A timeout was performed to confirm the correct patient, procedure, and site. Preparation: A suitable skin site was identified. The patient was prepped and draped in usual sterile fashion. Lidocaine 1% was used for local anesthesia. Catheter: 4 Persian One-step Yueh catheter. Side: LEFT lower quadrant. Fluid Volume: 8200 ml Color: Clear yellow DISPOSITION: Discarded safely. Complications: None. Patient disposition: Discharged from the department in stable condition. US/US paracentesis abd w [id number] IMPRESSION: Uncomplicated ultrasound-guided paracentesis. Removal of 8200cc
[2024-05-05 13:08] LABS: Cyto Order Verification No Order
[2024-05-05 13:11] LABS: Body Fluid Polynuclear #Cells 0.002; Body Fluid WBC 31 /uL; Monocytes # Body Fluid 0.029; RBC, Body Fluid 0 10^3/uL
[2024-05-05 13:15] LABS: Apprearance, Body Fluid CLOUDY; Color, Body Fluid YELLOW; Fluid Laterality PERITONEAL FLUID; PATH Referral YES
[2024-05-05] MEDS: albumin 25 G/100 ML BAG 60 G IV ×2 (13:31→13:50)
== END 2024-05-05 14:02 | disposition home or self-care (01) ==
LOC: GILAB 11:09
PROVIDERS: Radiology Neuroradiology; PCP Family Medicine; Visit Provider Internal Medicine Gastroenterology
PROC: (CPT 49082; principal; 2024-05-05 12:30)
DX: R18.8 Other ascites (principal)
CPT/HCPCS: 49083; 80503; 87070; 87075; 87205; 89050; 96365; P9046

== ENCOUNTER 2024-05-05 11:35 | Outpatient (CLI) | payer OTHER, SELFPAY ==
[2024-05-05 12:26] LABS: Basophils # 0.1 10^3/uL (0.0-0.1); Basophils % 0.7 %; Eosinophils # 0.5 10^3/uL (0.0-0.8); Eosinophils % 5.1 %; Hematocrit 27.6 % (37-53); Lymphocytes # 0.4 10^3/uL (0.8-4.8); Lymphocytes % 4.3 %; Mean Corpuscular HGB Conc 35.5 g/dL (30-55); Mean Corpuscular Hemoglobin 34.6 pg (27-33); Mean Corpuscular Volume 97.5 fl (82-101); Mean Platelet Volume 10.3 fL (7.4-10.4); Monocytes # 1.1 10^3/uL (0.2-0.9); Monocytes % 10.9 %; Neutrophils # 7.89 10^3/uL (1.8-7.7); Neutrophils % 77.8 %; Nucleated Red Blood Cells % 0 %; Platelet Count 125 10^3/cmm (157-399); Red Blood Count 2.83 10^6/uL (3.85-5.65); Red Cell Distribution Width 22.2 % (12.1-15.1); White Blood Count 10.15 10^3/uL (3.29-11.43)
[2024-05-05 12:35] LABS: INR 1.08 (0.8-1.2)
[2024-05-05 12:47] LABS: Alanine Aminotransferase 44 U/L (0-41); Albumin Level 4.1 g/dL (3.5-5.2); Alkaline Phosphatase 138 U/L (40-130); Anion Gap 18.3 (5-19); Aspartate Amino Transferase 49 U/L (0-40); Blood Urea Nitrogen 47 mg/dL (6-20); Carbon Dioxide 15 mmol/L (22-29); Chloride 96 mmol/L (98-107); Globulin 2.3 g/dL (1.3-4.6); Glomerular Filtration Rate 22.3 mL/min (90-130); Glucose 206 mg/dL (65-115); Osmolality Calculated 280 mOsm/kg (285-295); Potassium 3.3 mmol/L (3.5-5.1); Sodium 126 mmol/L (136-145); Total Bilirubin 3.2 mg/dL (0.15-1.2); Total Protein 6.4 g/dL (6.6-8.7)
== END 2024-05-05 11:36 | disposition home or self-care (01) ==
PROVIDERS: PCP Family Medicine; Visit Provider Internal Medicine Gastroenterology
DX: K70.9 Alcoholic liver disease, unspecified (principal)
CPT/HCPCS: 80053; 85025; 85610

== ENCOUNTER 2024-05-05 14:07 | Inpatient (IN) | payer OTHER, SELFPAY ==
[2024-05-05] VITALS (9 sets, daily range): BP systolic 100–118; BP diastolic 57–70; PULSE 84–102; RESP 12–16; TEMP 36.3–36.6; O2SAT 93–100
[2024-05-05 14:49] LABS: Basophils # 0.1 10^3/uL (0.0-0.1); Basophils % 0.6 %; Eosinophils # 0.4 10^3/uL (0.0-0.8); Eosinophils % 4.4 %; Hematocrit 25.1 % (37-53); Lymphocytes # 0.5 10^3/uL (0.8-4.8); Lymphocytes % 5.1 %; Mean Corpuscular HGB Conc 34.7 g/dL (30-55); Mean Corpuscular Hemoglobin 35.4 pg (27-33); Mean Platelet Volume 11.5 fL (7.4-10.4); Monocytes # 1.5 10^3/uL (0.2-0.9); Monocytes % 16.9 %; Neutrophils # 6.53 10^3/uL (1.8-7.7); Neutrophils % 71.8 %; Nucleated Red Blood Cells % 0 %; Platelet Count 97 10^3/cmm (157-399); Red Blood Count 2.46 10^6/uL (3.85-5.65); White Blood Count 9.09 10^3/uL (3.29-11.43)
--- NOTE | 2024-05-05 14:50 | W.ED.GIBLEED ---
HPI - GI Bleed General: Chief complaint: GI Bleed Stated complaint: passing blood in stool / weak , tired Time Seen by Provider: 05/05/24 14:39 History of Present Illness: 49-year-old male presents emergency room complaining of hematochezia. He has been passing blood in the stool for the last couple of days. He says each bowel movement sometimes just plain bright red blood. He has been feeling little bit weaker. Is a history of alcoholic liver cirrhosis he has had multiple paracentesis for he had one earlier today. He was seen last week had some increase in his ammonia level and he was started back on lactulose. Dose with increased after taking that he began having bright red blood per rectum so he stopped. He is chronically jaundiced. Associated symptoms: Denies abdominal pain, chills, fever(s) or rash Related Data Home Medications ?Medication ?Instructions ?Recorded ?Confirmed metoclopramide HCl 5 mg tablet 5 mg PO BID PRN Nausea And Vomiting 02/06/24 05/05/24 midodrine 5 mg tablet 10 mg PO TID 02/06/24 05/05/24 rifaximin 550 mg tablet 550 mg PO BID 02/06/24 05/05/24 lactulose 10 gram/15 mL oral 15 ml PO BID PRN Stomach Upset 02/29/24 05/05/24 solution (Constulose) sucralfate 1 gram tablet 1 g PO BID 04/04/24 05/05/24 fluticasone 100 mcg-salmeterol 50 1 inh inhalation BID 05/05/24 05/05/24 mcg/dose blistr powdr for inhalation (Wixela Inhub) hydrocodone 5 mg-acetaminophen 325 1 tab PO DAILY PRN Pain 05/05/24 05/05/24 mg tablet hydrocortisone 5 mg tablet See Rx Instructions .Route .COMPLEX 05/05/24 05/05/24 trazodone 50 mg tablet 50 mg PO BEDTIME 05/05/24 05/05/24 Previous Rx's ?Medication ?Instructions ?Recorded ondansetron HCl 4 mg tablet 4 mg PO Q8H PRN Nausea And 01/02/24 Vomiting 30 days #30 tabs albuterol sulfate 90 mcg/actuation 2 inh inhalation Q6H PRN shortness 01/08/24 aerosol inhaler (Ventolin HFA) of breath or wheezing #6.7 grams tramadol 50 mg tablet 50 mg PO Q8H PRN pain #10 tabs 02/02/24 pantoprazole 40 mg tablet,delayed 40 mg PO Q12H 30 days #60 tabs 03/04/24 release fludrocortisone 0.1 mg tablet 0.1 mg PO DAILY 30 days #30 tabs 04/10/24 Allergies Allergy/AdvReac Type Severity Reaction Status Date / Time No Known Allergies Allergy Verified 05/05/24 14:22 Review of Systems Const: Denies: fever(s) or chills Card: Denies: chest pain Resp: Denies: dyspnea GI: Denies: abdominal pain : Denies: dysuria, urinary frequency or urinary urgency Musc: Denies: neck pain or back pain Skin/Breast: Denies: rash PFSH ED PFSH: Medical History Hepatorenal syndrome Cardiorenal syndrome SBP (spontaneous bacterial peritonitis) Acute hepatic failure Abdominal ascites Smoker Colitis Low oxygen saturation Enteropathy Smoking addiction Alcohol use disorder Thrombocytopenia Liver cirrhosis Hematuria Ascites due to alcoholic cirrhosis Abdominal pain 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 History of colon polyps Rectal polyp 10 and 15 cm, cecum biopsy Sigmoid colon polyp Seasonal allergies Splenomegaly Enterocolitis 2016 Surgical History Status post colonoscopy with polypectomy H/O esophagogastroduodenoscopy Vasectomy status H/O left inguinal hernia repair Family History Denies family history of Cancer Social History Smoking and tobacco/nicotine status: former use of tobacco/nicotine Alcohol intake: former Substance/Drug Use: never Lives independently: Yes Housing: House Marital status: 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 Physical Exam Const: GENERAL APPEARANCE: cooperative ORIENTATION/CONSCIOUSNESS: Yes awake HENMT: COMMON NORMALS: normocephalic, atraumatic and hearing grossly normal bilaterally HEAD & SCALP: normocephalic and atraumatic Resp: COMMON NORMALS: normal respiratory effort, No retractions, No use of accessory muscles and clear to auscultation bilaterally AUSCULTATION: clear to auscultation bilaterally Cardio: COMMON NORMALS: regular rate, regular rhythm and No murmurs present (Cardio) RATE: regular rate RHYTHM: regular rhythm GI: COMMON NORMALS: Soft to palpation and No hepatosplenomegaly present AUSCULTATION: Yes normoactive bowel sounds PALPATION: Yes Soft to palpation, No Tenderness to palpation present (GI), No Guarding due to palpation present (GI) and Yes No hepatosplenomegaly present Extremity: COMMON NORMALS: normal to inspection, capillary refill normal, no clubbing, cyanosis or edema, no calf tenderness and no pedal edema Skin: COMMON NORMALS: no rashes or lesions noted NARRATIVE SKIN EXAM: Jaundice GENERAL SKIN EXAM: no rashes or lesions noted Course Vital Signs: Vital signs: Vital Signs Temperature 97.3 F L 05/05/24 14:14 Pulse Rate 84 05/05/24 16:30 Blood Pressure 104/61 05/05/24 16:30 Pulse Oximetry 100 05/05/24 16:30 Oxygen Delivery Me thod Room Air 05/05/24 15:52 MDM - GI Bleed Medical Decision Making Patient Evelin's hepatic encephalopathy. Also having hematochezia with steadily decreasing hemoglobin will admit. CT did not show any signs of acute infection bright red blood per rectum on exam. Will start him on Zosyn discussed with hospitalist consult surgery orders written Medical Records I reviewed the patient's medical records. Lab Data I reviewed the patient's lab results. 05/05/24 14:36 05/05/24 14:36 Radiology Impressions Abdomen/Pelvis CT 05/05/24 14:51 IMPRESSION: Findings consistent with portal hypertension consisting hepatic cirrhosis, moderate ascites and splenic/gastric varices. Laboratory Results WBC 9.09 10^3/uL (3.29-11.43) 05/05/24 14:36 RBC 2.46 10^6/uL (3.85-5.65) L 05/05/24 14:36 Hgb 8.70 g/dL (11.27-16.99) L 05/05/24 14:36 Hct 25.1 % (37-53) L 05/05/24 14:36 MCV 102.0 fl (82-101) H 05/05/24 14:36 MCH 35.4 pg (27-33) H 05/05/24 14:36 MCHC 34.7 g/dL (30-55) 05/05/24 14:36 RDW 23.0 % (12.1-15.1) H 05/05/24 14:36 Plt Count 97 10^3/cmm (157-399) L 05/05/24 14:36 MPV 11.5 fL (7.4-10.4) H 05/05/24 14:36 Neut % (Auto) 71.8 % 05/05/24 14:36 Lymph % (Auto) 5.1 % 05/05/24 14:36 [place] % (Auto) 16.9 % 05/05/24 14:36 Eos % (Auto) 4.4 % 05/05/24 14:36 Baso % (Auto) 0.6 % 05/05/24 14:36 Neut # (Auto) 6.53 10^3/uL (1.8-7.7) 05/05/24 14:36 Lymph # (Auto) 0.5 10^3/uL (0.8-4.8) L 05/05/24 14:36 [place] # (Auto) 1.5 10^3/uL (0.2-0.9) H 05/05/24 14:36 Eos # (Auto) 0.4 10^3/uL (0.0-0.8) 05/05/24 14:36 Baso # (Auto) 0.1 10^3/uL (0.0-0.1) 05/05/24 14:36 Nucleated RBC % (auto) 0 % 05/05/24 14:36 Nucleated RBCs # 0.0 /100WBC 05/05/24 14:36 PT 15.90 SECONDS (12.1-14.9) H 05/05/24 14:36 INR 1.19 (0.8-1.2) 05/05/24 14:36 APTT 35.4 SECONDS (23.9-36.7) 05/05/24 11:55 Sodium 127 mmol/L (136-145) L 05/05/24 14:36 Potassium 3.7 mmol/L (3.5-5.1) 05/05/24 14:36 Chloride 96 mmol/L (98-107) L 05/05/24 14:36 Carbon Dioxide 14 mmol/L (22-29) L 05/05/24 14:36 Anion Gap 20.7 (5-19) H 05/05/24 14:36 BUN 45 mg/dL (6-20) H 05/05/24 14:36 Creatinine 2.8 mg/dL (0.7-1.2) H 05/05/24 14:36 GFR Calculation 24.1 mL/min (90-130) L 05/05/24 14:36 Glucose 97 mg/dL (65-115) 05/05/24 14:36 Calculated Osmolality 275 mOsm/kg (285-295) L 05/05/24 14:36 Calcium 9.2 mg/dL (8.5-10.5) 05/05/24 14:36 Total Bilirubin 2.6 mg/dL (0.15-1.2) H 05/05/24 14:36 AST 48 U/L (0-40) H 05/05/24 14:36 ALT 37 U/L (0-41) 05/05/24 14:36 Alkaline Phosphatase 130 U/L (40-130) 05/05/24 14:36 Ammonia 71 umol/L (16-60) H 05/05/24 14:36 Total Protein 6.7 g/dL (6.6-8.7) 05/05/24 14:36 Albumin 4.5 g/dL (3.5-5.2) 05/05/24 14:36 Globulin 2.2 g/dL (1.3-4.6) 05/05/24 14:36 Lipase 59 U/L (13-60) 05/05/24 14:36 All radiology interpretation(s) finalized by discharge Discharge Plan Discharge Patient Disposition: Admitted As Inpatient Admit Provider: Brian Law Clinical Impression: Bright red blood per rectum, Ascites due to alcoholic cirrhosis, Thrombocytopenia, Hyperbilirubinemia, Alcoholic cirrhosis of liver, Esophageal varices Condition: Stable Coding Level of Care Code ED [employer] Equipment [employer] Instructor for Jess López
--- NOTE | 2024-05-05 14:51 | CTR_ITS ---
PROCEDURE INFORMATION: Exam: CT Abdomen And Pelvis With Contrast Exam date and time: 05/05/2024 3:00 PM Age: 49 years old Clinical indication: Other: Blood in stool; Abdominal pain; Generalized; Additional info: Abd pain TECHNIQUE: Imaging protocol: Computed tomography of the abdomen and pelvis with contrast. Radiation optimization: All CT scans at this facility use at least one of these dose optimization techniques: automated exposure control; mA and/or kV adjustment per patient size (includes targeted exams where dose is matched to clinical indication); or iterative reconstruction. Contrast material: OMNI 350; Contrast volume: 100 ml; Contrast route: INTRAVENOUS (IV); COMPARISON: CT abdomen pelvis wo con [id number] 03/15/2024 6:37 PM RADIATION DOSE METRICS: Total DLP (mGy-cm): 378.29 FINDINGS: Liver: Small dense liver. Gallbladder and biliary ducts: Gallstones. No gallbladder wall thickening. Pancreas: Normal. No ductal dilation. Spleen: Normal. No splenomegaly. Adrenal glands: Normal. No mass. Kidneys and ureters: Normal. No hydronephrosis. Stomach and bowel: Unremarkable. No obstruction. No mucosal thickening. Appendix: No evidence of appendicitis. Intraperitoneal space: Moderate ascites. Vasculature: Splenic and gastric varices. Lymph nodes: Unremarkable. No enlarged lymph nodes. Urinary bladder: Unremarkable as visualized. Reproductive: Unremarkable as visualized. Bones/joints: Unremarkable. No acute fracture. Soft tissues: Unremarkable. CT/CT abdomen pelvis w con* [id number] IMPRESSION: Findings consistent with portal hypertension consisting hepatic cirrhosis, moderate ascites and splenic/gastric varices.
[2024-05-05 15:00] LABS: INR 1.19 (0.8-1.2)
[2024-05-05] MEDS: iohexol 350 mg/mL 500 mL Btl (per mL) IV (15:03)
[2024-05-05 15:09] LABS: Albumin Level 4.5 g/dL (3.5-5.2); Alkaline Phosphatase 130 U/L (40-130); Calcium 9.2 mg/dL (8.5-10.5); Creatinine Clr Calc Pharmacy 28.6245; Globulin 2.2 g/dL (1.3-4.6); Glucose 97 mg/dL (65-115); Lipase 59 U/L (13-60); Total Protein 6.7 g/dL (6.6-8.7)
[2024-05-05 15:14] LABS: Ammonia 71 umol/L (16-60)
[2024-05-05 15:15] LABS: Partial Thromboplastin Time 35.4 SECONDS (23.9-36.7)
[2024-05-05 15:26] LABS: Alanine Aminotransferase 37 U/L (0-41); Anion Gap 20.7 (5-19); Blood Urea Nitrogen 45 mg/dL (6-20); Carbon Dioxide 14 mmol/L (22-29); Chloride 96 mmol/L (98-107); Glomerular Filtration Rate 24.1 mL/min (90-130); Osmolality Calculated 275 mOsm/kg (285-295); Potassium 3.7 mmol/L (3.5-5.1); Sodium 127 mmol/L (136-145); Total Bilirubin 2.6 mg/dL (0.15-1.2)
[2024-05-05 15:27] LABS: Aspartate Amino Transferase 48 U/L (0-40)
[2024-05-05] MEDS: piperacillin-tazobactam 3.375 GM in sodium chloride 0.9% (plus) 50 ML IV (16:52)
--- NOTE | 2024-05-05 16:52 | PM.CONSULT ---
Providers/Reason For Consult Consulting Physician/Specialty*: dr. sanchez gen surg Reason for Consult*: GIB Primary Care Provider: Alia Sanchez MD History of Present Illness History of Present Illness Chase Rivero is a 49 year old male PMH cirrhosis. Gen surg consulted for GIB. No hematemesis, hematochezia, melena. Did have a hgb drop. VSS Medications/Allergies Home Medications ?Medication ?Instructions ?Recorded ?Confirmed ?Last Taken ?Type ondansetron HCl 4 mg tablet 4 mg PO Q8H PRN Nausea And 01/02/24 05/05/24 04/20/24 Rx Vomiting 30 days #30 tabs albuterol sulfate 90 mcg/actuation 2 inh inhalation Q6H PRN shortness 01/08/24 05/05/24 04/20/24 Rx aerosol inhaler (Ventolin HFA) of breath or wheezing #6.7 grams tramadol 50 mg tablet 50 mg PO Q8H PRN pain #10 tabs 02/02/24 05/05/24 04/20/24 Rx metoclopramide HCl 5 mg tablet 5 mg PO BID PRN Nausea And Vomiting 02/06/24 05/05/24 05/05/24 History midodrine 5 mg tablet 10 mg PO TID 02/06/24 05/05/24 05/05/24 History rifaximin 550 mg tablet 550 mg PO BID 02/06/24 05/05/24 05/05/24 History lactulose 10 gram/15 mL oral 15 ml PO BID PRN Stomach Upset 02/29/24 05/05/24 04/20/24 History solution (Constulose) pantoprazole 40 mg tablet,delayed 40 mg PO Q12H 30 days #60 tabs 03/04/24 05/05/24 05/05/24 Rx release sucralfate 1 gram tablet 1 g PO BID 04/04/24 05/05/24 05/05/24 History fludrocortisone 0.1 mg tablet 0.1 mg PO DAILY 30 days #30 tabs 04/10/24 05/05/24 05/05/24 Rx fluticasone 100 mcg-salmeterol 50 1 inh inhalation BID 05/05/24 05/05/24 05/05/24 History mcg/dose blistr powdr for inhalation (Wixela Inhub) hydrocodone 5 mg-acetaminophen 325 1 tab PO DAILY PRN Pain 05/05/24 05/05/24 Unknown History mg tablet hydrocortisone 5 mg tablet See Rx Instructions .Route .COMPLEX 05/05/24 05/05/24 05/05/24 History trazodone 50 mg tablet 50 mg PO BEDTIME 05/05/24 05/05/24 05/04/24 History Allergies Allergy/AdvReac Type Severity Reaction Status Date / Time No Known Allergies Allergy Verified 05/05/24 14:22 PFSH Acute PFSH: Medical History Hepatorenal syndrome Cardiorenal syndrome SBP (spontaneous bacterial peritonitis) Acute hepatic failure Abdominal ascites Smoker Colitis Low oxygen saturation Enteropathy Smoking addiction Alcohol use disorder Thrombocytopenia Liver cirrhosis Hematuria Ascites due to alcoholic cirrhosis Abdominal pain 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 History of colon polyps Rectal polyp 10 and 15 cm, cecum biopsy Sigmoid colon polyp Seasonal allergies Splenomegaly Enterocolitis 2016 Surgical History Status post colonoscopy with polypectomy H/O esophagogastroduodenoscopy Vasectomy status H/O left inguinal hernia repair Family History Denies family history of Cancer Social History Smoking and tobacco/nicotine status: former use of tobacco/nicotine Alcohol intake: former Substance/Drug Use: never Lives independently: Yes Housing: House 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 Discussed risks and benefits and patient agrees to proceed with diagnostic colonoscopy and EGD. PDMP PDMP Reviewed: Not Reviewed Coding Level of Care Code 27862 Diagnoses GIB (gastrointestinal bleeding) K92.2 Time Spent (min) 30
--- NOTE | 2024-05-05 16:52 | PM.MISC ---
Miscellaneous Note Note: Full consult note to follow. Will plan for EGD colonoscopy as workup for GIB 05/06/24. Will order prep.
--- NOTE | 2024-05-05 17:08 | PM.HP ---
Providers/Chief Complaint Primary Care Provider: Alia Sanchez MD Chief Complaint: passing blood in stool / weak , tired History of Present Illness Chase Rivero is a 49 year old male with a past medical history of end-stage decompensated alcoholic liver cirrhosis with recurrent ascites, has hepatorenal disease, CKD, chronic hyponatremia, chronic hypotension, with multiple admissions with most recently discharged on April 10, recent concerns for adrenal insufficiency presents to the ER today because of having bright blood per rectum without increased abdominal pain since . He has not taken his lactulose since Sunday. Denies any dizziness. Has been taking his medications as prescribed. States blood pressures have been better. Denies any nausea, vomiting, headache. Had paracentesis done earlier today morning. Denies any difficulty in breathing more than usual. Review of Systems General: Reports: 10 or more systems reviewed and unremarkable except in HPI and below Const: Denies: fever(s), chills, body aches, change in appetite, change in weight, malaise, night sweats, diaphoresis, change in sleep pattern, daytime sleepiness or snoring Eyes: Denies: change in vision, blurry vision, photophobia, eye discomfort or eye discharge ENMT: Denies: throat pain, enlarged tonsils, hoarseness, mouth pain, oral sores, dry mouth, tinnitus, nasal congestion or post nasal drip Card: Denies: chest pain, palpitations, irregular heart rhythm, edema, swelling of feet/ankles, lightheadedness, syncope, pre-syncope, dyspnea on exertion, orthopnea, leg pain with exertion or acrocyanosis Resp: Denies: dyspnea, productive cough, non-productive cough, wheezing, stridor, pain on inspiration, change in phlegm color, hemoptysis or chest congestion GI: Denies: abdominal pain, nausea, vomiting, hematemesis, coffee ground emesis, dysphagia, heartburn, diarrhea, constipation, bloating, GI cramping, change in bowel habits, pain on defecation, hematochezia or melena : Denies: flank pain, difficulty urinating, dysuria, urinary frequency, urinary urgency, urinary hesitancy, urinary dribbling, difficulty starting urination, change in urine stream, nocturia or hematuria Musc: Denies: neck pain, back pain, extremity pain, joint pain, joint swelling, joint redness, joint stiffness or limited range of motion Neuro: Denies: headache(s), numbness in extremities, weakness in extremities, sensory changes, lack of coordination, difficulty walking, frequent falls, dizziness, vertigo, confusion, Slurred speech present, difficulty communicating thoughts or seizure-like activity Psych: Denies: anxiety, depression, mood swings, panic attacks, hopelessness or irritability Endo: Denies: polyuria, polydipsia, tired all the time, cold intolerance, excessive sweating, flushing or heat intolerance Wu/Lymph: Denies: easy bruising or easy bleeding All/Imm: Denies: tongue swelling, facial swelling or acute wheezing Medications/Allergies Home Medications ?Medication ?Instructions ?Recorded ?Confirmed ?Last Taken ?Type ondansetron HCl 4 mg tablet 4 mg PO Q8H PRN Nausea And 01/02/24 05/05/24 04/20/24 Rx Vomiting 30 days #30 tabs albuterol sulfate 90 mcg/actuation 2 inh inhalation Q6H PRN shortness 01/08/24 05/05/24 04/20/24 Rx aerosol inhaler (Ventolin HFA) of breath or wheezing #6.7 grams tramadol 50 mg tablet 50 mg PO Q8H PRN pain #10 tabs 02/02/24 05/05/24 04/20/24 Rx metoclopramide HCl 5 mg tablet 5 mg PO BID PRN Nausea And Vomiting 02/06/24 05/05/24 05/05/24 History midodrine 5 mg tablet 10 mg PO TID 02/06/24 05/05/24 05/05/24 History rifaximin 550 mg tablet 550 mg PO BID 02/06/24 05/05/24 05/05/24 History lactulose 10 gram/15 mL oral 15 ml PO BID PRN Stomach Upset 02/29/24 05/05/24 04/20/24 History solution (Constulose) pantoprazole 40 mg tablet,delayed 40 mg PO Q12H 30 days #60 tabs 03/04/24 05/05/24 05/05/24 Rx release sucralfate 1 gram tablet 1 g PO BID 04/04/24 05/05/24 05/05/24 History fludrocortisone 0.1 mg tablet 0.1 mg PO DAILY 30 days #30 tabs 04/10/24 05/05/24 05/05/24 Rx fluticasone 100 mcg-salmeterol 50 1 inh inhalation BID 05/05/24 05/05/24 05/05/24 History mcg/dose blistr powdr for inhalation (Wixela Inhub) hydrocodone 5 mg-acetaminophen 325 1 tab PO DAILY PRN Pain 05/05/24 05/05/24 Unknown History mg tablet hydrocortisone 5 mg tablet See Rx Instructions .Route .COMPLEX 05/05/24 05/05/24 05/05/24 History trazodone 50 mg tablet 50 mg PO BEDTIME 05/05/24 05/05/24 05/04/24 History Allergies Allergy/AdvReac Type Severity Reaction Status Date / Time No Known Allergies Allergy Verified 05/05/24 14:22 PFSH Acute PFSH: Medical History Hepatorenal syndrome Cardiorenal syndrome SBP (spontaneous bacterial peritonitis) Acute hepatic failure Abdominal ascites Smoker Colitis Low oxygen saturation Enteropathy Smoking addiction Alcohol use disorder Thrombocytopenia Liver cirrhosis Hematuria Ascites due to alcoholic cirrhosis Abdominal pain 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 History of colon polyps Rectal polyp 10 and 15 cm, cecum biopsy Sigmoid colon polyp Seasonal allergies Splenomegaly Enterocolitis 2016 Surgical History Status post colonoscopy with polypectomy H/O esophagogastroduodenoscopy Vasectomy status H/O left inguinal hernia repair Family History Denies family history of Cancer Social History Smoking and tobacco/nicotine status: former use of tobacco/nicotine Alcohol intake: former Substance/Drug Use: never Lives independently: Yes Housing: House 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 Vitals/I&O/Wt Last Vital Signs Temp 97.3 F L 05/05/24 14:14 Pulse 84 05/05/24 16:30 BP 104/61 05/05/24 16:30 Pulse Ox 100 05/05/24 16:30 O2 Del Method Room Air 05/05/24 15:52 Weight last 48 hrs Weight 57.697 kg Physical Exam Narrative: General: No acute distress, AO x3, pallor present, icterus present HEENT: PERRLA, pupils bilaterally equal and reactive Chest: Normal vesicular breath sounds, no added sounds, equal good air entry bilaterally CVS: S1-S2 regular, no murmurs, no tachycardia, no gallops, no rubs Abdomen: Soft, nontender, distended, no organomegaly, bowel sounds present Neuro: No focal deficits, no facial deformity, AO x3, power 5/5 in all limbs Data 05/05/24 14:36 05/05/24 14:36 A&P Assessment and plan (1) Anemia: Baseline hemoglobin of 11.5. Currently 8.7. Patient gives history of bright blood per rectum. Denies any nausea or melena. Check hemoglobin every 8 hours. Surgery consulted from the ER. Patient possibly will need colonoscopy. Found to have varices on the CT abdomen pelvis. Target hemoglobin more than 7. Will transfuse accordingly. Check iron panel, vitamin B12, folate levels. (2) Bright red blood per rectum: Concerns for lower GI bleed. Will need colonoscopy. Found to have varices on CT abdomen/pelvis. No concern for colitis. (3) Alcoholic cirrhosis of liver: Liver functions for now at baseline. Bilirubin at baseline. Ammonia level at 71. Continue with home dose of lactulose and rifaximin. (4) Adrenal insufficiency: Recent suspicion. Found to have relatively low cortisol level. Need to follow-up with endocrine as an outpatient for formal workup. For now continue with fludrocortisone and hydrocortisone taper. Continue with midodrine 10 mg 3 times daily. (5) Chronic hypotension: Goal blood pressure less than 140/90 MAG with mean over 65. Continue with midodrine. (6) Chronic kidney disease: Baseline creatinine around 2.8. Concern for hepatorenal syndrome. Medical reconciliation done for nephrotoxic drugs. Monitor renal functions. (7) Esophageal varices: (8) Ascites due to alcoholic cirrhosis: Needing recurrent paracentesis. Paracentesis done earlier today. Appreciate fluid studies. No concern for peritonitis. Hold off on IV antibiotics. Plan Full code Clear liquid diet, n.p.o. after midnight Protonix every 12 hourly observation for PUD prophylaxis SCD for DVT prophylaxis given concerns for lower GI bleed. PDMP PDMP Reviewed: Not Reviewed Attestations Medical Necessity Statement*: Admission for more than 2 midnights for management of anemia with concerns for lower GI bleed needing colonoscopy in a patient with history of chronic liver cirrhosis, hepatorenal syndrome, CKD, concerns for abdominal insufficiency Diagnoses Anemia D64.9 Bright red blood per rectum K62.5 Alcoholic cirrhosis of liver K70.30 Adrenal insufficiency E27.40 Chronic hypotension I95.89 Chronic kidney disease N18.9 Esophageal varices I85.00 Ascites due to alcoholic cirrhosis K70.31
[2024-05-05 17:48] LABS: Lactic Sepsis W/Reflex 2.9 mmol/L (0.5-2.2)
[2024-05-05] MEDS: docusate sodium 100 mg Capsule PO (18:31)
[2024-05-05] MEDS: rifaximin 200 mg Tablet 600 MG PO (18:31)
[2024-05-05] MEDS: sucralfate 1 gm Tablet PO (18:31)
[2024-05-05] MEDS: lactulose oral liq 20 gm/30 mL UDC 30 GM PO (18:33)
[2024-05-05] MEDS: pantoprazole 40 mg SDV IVP (18:34)
[2024-05-05] MEDS: magnesium citrate Btl 296 mL PO ×2 (18:35→23:30)
[2024-05-05 18:45] LABS: Iron 107 ug/dL (59-158)
[2024-05-05 19:01] LABS: Vitamin B12 1318 pg/mL (232-1245)
[2024-05-05 19:06] LABS: Percent Saturation 77.5 % (20-50); Total Iron Binding Capacity 138 mcg/dl; Unsaturated Iron Binding 31 ug/dL (112-347)
[2024-05-05 19:07] LABS: Reflex Lactate Order REFLEX LACTIC ORDERD
[2024-05-05 20:47] LABS: Lactic Acid level (Lactate) 2.4 mmol/L (0.5-2.2)
[2024-05-05] MEDS: ondansetron 2 mg/ML SDV 2 mL 4 MG IVP (21:31)
[2024-05-05 21:54] LABS: Hematocrit 28.2 % (37-53)
[2024-05-05] MEDS: midodrine 5 mg TABLET 10 MG PO (23:30)
[2024-05-05] MEDS: bisacodyl 5 mg Tablet 40 MG PO (23:45)
[2024-05-06] VITALS (21 sets, daily range): BP systolic 100–120; BP diastolic 59–80; PULSE 64–104; RESP 15–19; TEMP 36.2–36.9; O2SAT 93–100
[2024-05-06] MEDS: HYDROcodone-acetaminophen 5-325 mg Tablet 1 TAB PO (02:13)
[2024-05-06] MEDS: ondansetron 2 mg/ML SDV 2 mL 4 MG IVP ×2 (02:51→19:26)
[2024-05-06] MEDS: hydrocortisone 10 mg Tablet PO (05:30)
[2024-05-06 06:15] LABS: Basophils # 0.1 10^3/uL (0.0-0.1); Basophils % 0.9 %; Eosinophils # 0.6 10^3/uL (0.0-0.8); Eosinophils % 6.4 %; Hematocrit 25.6 % (37-53); Lymphocytes # 0.5 10^3/uL (0.8-4.8); Lymphocytes % 5.4 %; Mean Corpuscular HGB Conc 36.3 g/dL (30-55); Mean Corpuscular Hemoglobin 35.1 pg (27-33); Mean Corpuscular Volume 96.6 fl (82-101); Mean Platelet Volume 10.2 fL (7.4-10.4); Monocytes # 1.1 10^3/uL (0.2-0.9); Monocytes % 11.4 %; Neutrophils # 7.48 10^3/uL (1.8-7.7); Neutrophils % 75.3 %; Nucleated Red Blood Cells % 0 %; Platelet Count 98 10^3/cmm (157-399); Red Blood Count 2.65 10^6/uL (3.85-5.65); Red Cell Distribution Width 22.2 % (12.1-15.1); White Blood Count 9.94 10^3/uL (3.29-11.43)
[2024-05-06 06:32] LABS: Alanine Aminotransferase 41 U/L (0-41); Albumin Level 4.3 g/dL (3.5-5.2); Alkaline Phosphatase 121 U/L (40-130); Anion Gap 18.9 (5-19); Aspartate Amino Transferase 48 U/L (0-40); Blood Urea Nitrogen 43 mg/dL (6-20); Calcium 10.1 mg/dL (8.5-10.5); Carbon Dioxide 15 mmol/L (22-29); Chloride 100 mmol/L (98-107); Creatinine Clr Calc Pharmacy 30.8252; Globulin 2.2 g/dL (1.3-4.6); Glomerular Filtration Rate 26.3 mL/min (90-130); Glucose 100 mg/dL (65-115); Osmolality Calculated 283 mOsm/kg (285-295); Sodium 131 mmol/L (136-145); Total Bilirubin 3.7 mg/dL (0.15-1.2); Total Protein 6.5 g/dL (6.6-8.7)
[2024-05-06 06:50] LABS: Folate Level 9.1 ng/mL (4.5-32.2)
[2024-05-06 06:53] LABS: Potassium 2.9 mmol/L (3.5-5.1)
[2024-05-06] MEDS: lidocaine 1% 5 ML in potassium chloride premix 100 ML 26.25 ML IV (08:02)
[2024-05-06] MEDS: pantoprazole 40 mg SDV IVP ×2 (08:03→19:26)
[2024-05-06] MEDS: fludrocortisone 0.1 mg Tablet PO (08:03)
[2024-05-06] MEDS: sucralfate 1 gm Tablet PO ×2 (08:04→17:42)
[2024-05-06] MEDS: docusate sodium 100 mg Capsule PO ×2 (08:04→17:42)
[2024-05-06] MEDS: lactulose oral liq 20 gm/30 mL UDC 30 GM PO ×2 (08:04→17:42)
[2024-05-06] MEDS: rifaximin 200 mg Tablet 600 MG PO ×2 (08:04→17:42)
[2024-05-06] MEDS: midodrine 5 mg TABLET 10 MG PO ×3 (08:04→19:26)
--- NOTE | 2024-05-06 09:39 | P.PN_ITS ---
Subjective 2 Subjective: NAEON No hematochezia, hemetemesis VSS Vitals/I&O/Wt Last Vital Signs Temp 97.7 F 05/06/24 07:56 Pulse 104 H 05/06/24 07:56 Resp 15 05/06/24 07:56 BP 109/70 05/06/24 07:56 Pulse Ox 99 05/06/24 07:56 O2 Del Method Room Air 05/06/24 07:56 05/05/24 05/06/24 05/06/24 22:59 06:59 14:59 Intake Total 50 / 50 Balance 50 / 50 Weight last 48 hrs Weight 127 lb 3 oz Weight 127 lb 3 oz Weight 127 lb 3.2 oz Physical Exam 2 Narrative: RRR Unlabored breathing RA Abdomen soft, nt, nd Data 05/06/24 04:27 05/06/24 04:27 Micro: Microbiology 05/05/24 17:24 Blood Culture - Preliminary Blood SPECIMEN COLLECTED 05/05/24 17:15 Blood Culture - Preliminary Blood SPECIMEN COLLECTED A&P Assessment and plan (1) GIB (gastrointestinal bleeding): Plan 49 yo male PMH cirrhosis. Consulted for GIB. Discussed with hospitalist. Will proceed with colonoscopy only PDMP PDMP Reviewed: Not Reviewed Attestations 2 Medical Necessity Statement*: NA Coding Level of Care Code 39757 Diagnoses GIB (gastrointestinal bleeding) K92.2 Time Spent (min) 30
--- NOTE | 2024-05-06 10:03 | PC.CHAP ---
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 [] Patient/Family/Request visit [] Outpatient visit [] Follow-up visit [] Physician referral [] Code/Alert [x] Routine visit [] Staff referral [] Actively dying [] Patient sleeping [x] Family support [] [] Out of room [] Palliative care [] [] Receiving care in room [] Pre-surgical visit [] Trauma [] Long length of stay [] ICU visit [] Other: Relational/Emotional Strength [x] Patient feels connected with others/family/visitors/staff [] Distress [] Loneliness/isolation [] Abandonment Spirituality of Patient [x] Person of Adry [] Attends Congregation of their Adry [x] Believes in Prayer [] Reads Bible or Gnosticist materials [] There are Spiritual issues to be addressed Geosciences Faculty Member 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 [x] Prayer [x] Active listening [] Non-anxious presence [x] Spiritual/emotional support [] Crisis/trauma care [] Spiritual counseling [] Bereavement support [] Provided bereavement packet [] Provided Bible/devotional materials [] Provided toy/stuffed animal, coloring book to patient or family member [] Provided Communion [] Anointing/[place] [] Salvation [x] Completed spiritual assessment [] Other: Impact on Illness or Injury [] Angry [] Fearful [] Anxious [] Often cries [] Exhaustion [] Unable to work [] Unable to attend muslim [] Unable to walk/stand [] Unable to read [] Unable to drive [] Unable to eat/drink [] Unable to sleep [] Unable to be with family [] Patient intubated [] Other: Summary Time spent with patient 5 min
[2024-05-06] MEDS: sodium chloride 0.9% 500 ML 15 ML IV (12:54)
--- NOTE | 2024-05-06 13:01 | ANES.PREANE2 ---
Pre-Anesthetic Assessment Height/Weight: Height 1.73 m Weight 57.691 kg Temp Pulse Resp BP Pulse Ox O2 Del Method 97.6 F 89 18 120/80 100 Room Air 05/06/24 12:48 05/06/24 12:48 05/06/24 12:48 05/06/24 12:48 05/06/24 12:48 05/06/24 12:48 Operation Date: 05/06/24 12:30 Proposed Procedures p Colonoscopy(Not Applicable) - Jamel Maciel MD Familial anesthetic complications: none Was Beta [place] taken within 24 hours: N/A Was Clonidine taken within 24 hours: N/A Last intake: Intake Last Liquid Date 05/05/24 Last Liquid Time 23:59 Last Solid Date 05/05/24 Last Solid Time 11:00 Social Alcohol (hx) and No alcohol Exam alert, oriented x 3, clear to auscultation bilaterally and regular rate & rhythm Airway Mallampati: Class I Dentition: false hepatorenal syndrome Hepatic Cirrhosis (ETOH cirrhosis) ascites - drained weekly Last drained yesterday morning, no siginifcant reaccumulation this afternoon GI Gastroesophageal Reflux Disease esophageal varices Anesthetic Plan ASA status: 4 Anesthesia: MAC Risk of > 500 ml blood loss (7ml/kg in children): No Medications/Allergies Home Medications ?Medication ?Instructions ?Recorded ?Confirmed ?Last Taken ?Type ondansetron HCl 4 mg tablet 4 mg PO Q8H PRN Nausea And 01/02/24 05/05/24 04/20/24 Rx Vomiting 30 days #30 tabs albuterol sulfate 90 mcg/actuation 2 inh inhalation Q6H PRN shortness 01/08/24 05/05/24 04/20/24 Rx aerosol inhaler (Ventolin HFA) of breath or wheezing #6.7 grams tramadol 50 mg tablet 50 mg PO Q8H PRN pain #10 tabs 02/02/24 05/05/24 04/20/24 Rx metoclopramide HCl 5 mg tablet 5 mg PO BID PRN Nausea And Vomiting 02/06/24 05/05/24 05/05/24 History midodrine 5 mg tablet 10 mg PO TID 02/06/24 05/05/24 05/05/24 History rifaximin 550 mg tablet 550 mg PO BID 02/06/24 05/05/2425 History lactulose 10 gram/15 mL oral 15 ml PO BID PRN Stomach Upset 02/29/24 05/05/24 04/20/24 History solution (Constulose) pantoprazole 40 mg tablet,delayed 40 mg PO Q12H 30 days #60 tabs 03/04/24 05/05/24 05/05/24 Rx release sucralfate 1 gram tablet 1 g PO BID 04/04/24 05/05/24 05/05/24 History fludrocortisone 0.1 mg tablet 0.1 mg PO DAILY 30 days #30 tabs 04/10/24 05/05/24 05/05/24 Rx fluticasone 100 mcg-salmeterol 50 1 inh inhalation BID 05/05/24 05/05/24 05/05/24 History mcg/dose blistr powdr for inhalation (Wixela Inhub) hydrocodone 5 mg-acetaminophen 325 1 tab PO DAILY PRN Pain 05/05/24 05/05/24 Unknown History mg tablet hydrocortisone 5 mg tablet See Rx Instructions .Route .COMPLEX 05/05/24 05/05/24 05/05/24 History trazodone 50 mg tablet 50 mg PO BEDTIME 05/05/24 05/05/24 05/04/24 History Allergies Allergy/AdvReac Type Severity Reaction Status Date / Time No Known Allergies Allergy Verified 05/05/24 14:22 Current Medications Generic Name Dose Route Start Last Admin Trade Name Freq PRN Reason Stop Dose Admin Hydrocodone Bitart/Acetaminophen 1 tab 05/05/24 17:55 05/06/24 02:13 Hydrocodone-Acetaminophen 5-325 Mg Tablet PO 1 tab DAILY PRN Administration Pain Docusate Sodium 100 mg 05/05/24 18:00 05/06/24 08:04 Docusate Sodium 100 Mg Capsule PO 100 mg BID CHRIS Administration Fludrocortisone Acetate 0.1 mg 05/06/24 09:00 05/06/24 08:03 Fludrocortisone 0.1 Mg Tablet PO 0.1 mg DAILY CHRIS Administration Hydrocortisone 10 mg 05/06/24 06:00 05/06/24 05:30 Hydrocortisone 10 Mg Tablet PO 10 mg QAM CHRIS Administration Sodium Chloride 500 mls @ 15 mls/hr 05/06/24 12:46 05/06/24 12:54 Sodium Chloride 0.9% IV 05/07/24 12:45 15 mls/hr .Q24H PRN Administration COLONOSCOPY FLUIDS Lactulose 30 gm 05/05/24 18:00 05/06/24 08:04 Lactulose Oral Liq 20 Gm/30 Ml Udc PO 30 gm BID CHRIS Administration Midodrine 10 mg 05/05/24 21:00 05/06/24 08:04 Midodrine 5 Mg Tablet PO 10 mg TID CHRIS Administration Ondansetron HCl 4 mg 05/05/24 17:55 05/06/24 02:51 Ondansetron 2 Mg/Ml Sdv 2 Ml IVP 4 mg Q6H PRN Administration vomiting, or N/V if npo Pantoprazole Sodium 40 mg 05/05/24 17:55 05/06/24 08:03 Pantoprazole 40 Mg Sdv IVP 40 mg Q12H CHRIS Administration Rifaximin 600 mg 05/05/24 18:00 05/06/24 08:04 Rifaximin 200 Mg Tablet PO 600 mg BID CHRIS Administration Sucralfate 1 gm 05/05/24 18:00 05/06/24 08:04 Sucralfate 1 Gm Tablet PO 1 gm BID CHRIS Administration Trazodone HCl 50 mg 05/05/24 21:00 05/05/24 23:33 Trazodone 50 Mg Tablet PO Not Given BEDTIME CHRIS PFSH Anesthesia Medical History Hepatorenal syndrome Cardiorenal syndrome SBP (spontaneous bacterial peritonitis) Acute hepatic failure Abdominal ascites Smoker Colitis Low oxygen saturation Enteropathy Smoking addiction Alcohol use disorder Thrombocytopenia Liver cirrhosis Hematuria Ascites due to alcoholic cirrhosis Abdominal pain 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 History of colon polyps Rectal polyp 10 and 15 cm, cecum biopsy Sigmoid colon polyp Seasonal allergies Splenomegaly Enterocolitis 2016 Surgical History Status post colonoscopy with polypectomy H/O esophagogastroduodenoscopy Vasectomy status H/O left inguinal hernia repair Family History Denies family history of Cancer Social History Smoking and tobacco/nicotine status: former use of tobacco/nicotine Alcohol intake: former Substance/Drug Use: never Lives independently: Yes Housing: House 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 Data Anesthesia 05/06/24 04:27 05/06/24 04:27 Short CBC 05/05/24 05/05/24 05/06/24 Range/Units 14:36 21:15 04:27 WBC 9.09 9.94 (3.29-11.43) 10^3/uL Hgb 8.70 L 10.20 L 9.30 L (11.27-16.99) g/dL Hct 25.1 L 28.2 L 25.6 L (37-53) % MCV 102.0 H 96.6 D (82-101) fl Plt Count 97 L 98 L (157-399) 10^3/cmm Neut % (Auto) 71.8 75.3 % Neut # (Auto) 6.53 7.48 (1.8-7.7) 10^3/uL BMP 05/05/24 05/06/24 14:36 04:27 Sodium 127 L 131 L Potassium 3.7 2.9 L D Chloride 96 L 100 Carbon Dioxide 14 L 15 L BUN 45 H 43 H Creatinine 2.8 H 2.6 H Glucose 97 100 Calcium 9.2 10.1 Liver Function 05/05/24 05/06/24 Range/Units 14:36 04:27 Total Bilirubin 2.6 H 3.7 H (0.15-1.2) mg/dL AST 48 H 48 H (0-40) U/L ALT 37 41 (0-41) U/L Alkaline Phosphatase 130 121 (40-130) U/L Albumin 4.5 4.3 (3.5-5.2) g/dL Coags 05/05/24 05/05/24 11:55 14:36 PT 15.90 H INR 1.19 APTT 35.4 Microbiology 05/05/24 17:24 Blood Culture - Preliminary Blood SPECIMEN COLLECTED 05/05/24 17:15 Blood Culture - Preliminary Blood SPECIMEN COLLECTED Cardiac Studies: Echocardiogram 10/21/23 Sestamibi Stress Test (Cardiology) 12/06/23
--- NOTE | 2024-05-06 13:26 | P.PN_ITS ---
Subjective 2 Subjective: No acute events overnight. Denies any further episode of bright blood per rectum overnight. Denies any nausea, vomiting, headache. States feeling comfortable. Vitals/I&O/Wt Last Vital Signs Temp 97.6 F 05/06/24 12:48 Pulse 89 05/06/24 12:48 Resp 18 05/06/24 12:48 BP 120/80 05/06/24 12:48 Pulse Ox 100 05/06/24 12:48 O2 Del Method Room Air 05/06/24 12:48 05/05/24 05/06/24 05/06/24 22:59 06:59 14:59 Intake Total 50 / 50 Balance 50 / 50 Weight last 48 hrs Weight 57.691 kg Weight 57.691 kg Weight 57.697 kg Physical Exam 2 Narrative: General: No acute distress, AO x3, pallor present, icterus present HEENT: PERRLA, pupils bilaterally equal and reactive Chest: Normal vesicular breath sounds, no added sounds, equal good air entry bilaterally CVS: S1-S2 regular, no murmurs, no tachycardia, no gallops, no rubs Abdomen: Soft, nontender, distended, no organomegaly, bowel sounds present Neuro: No focal deficits, no facial deformity, AO x3, power 5/5 in all limbs Data 05/06/24 04:27 05/06/24 04:27 Micro: Microbiology 05/05/24 17:24 Blood Culture - Preliminary Blood SPECIMEN COLLECTED 05/05/24 17:15 Blood Culture - Preliminary Blood SPECIMEN COLLECTED A&P Assessment and plan (1) Anemia: Baseline hemoglobin of 11.5. Currently 8.7. Patient gives history of bright blood per rectum. Denies any nausea or melena. Check hemoglobin every 8 hours. Surgery consulted from the ER. Patient possibly will need colonoscopy. Found to have varices on the CT abdomen pelvis. Target hemoglobin more than 7. Will transfuse accordingly. Check iron panel, vitamin B12, folate levels. (2) Bright red blood per rectum: Concerns for lower GI bleed. Will need colonoscopy. Found to have varices on CT abdomen/pelvis. No concern for colitis. (3) Alcoholic cirrhosis of liver: Liver functions for now at baseline. Bilirubin at baseline. Ammonia level at 71. Continue with home dose of lactulose and rifaximin. (4) Adrenal insufficiency: Recent suspicion. Found to have relatively low cortisol level. Need to follow-up with endocrine as an outpatient for formal workup. For now continue with fludrocortisone and hydrocortisone taper. Continue with midodrine 10 mg 3 times daily. (5) Chronic hypotension: Goal blood pressure less than 140/90 MAG with mean over 65. Continue with midodrine. (6) Chronic kidney disease: Baseline creatinine around 2.8. Concern for hepatorenal syndrome. Medical reconciliation done for nephrotoxic drugs. Monitor renal functions. (7) Esophageal varices: (8) Ascites due to alcoholic cirrhosis: Needing recurrent paracentesis. Paracentesis done earlier today. Appreciate fluid studies. No concern for peritonitis. Hold off on IV antibiotics. Plan Full code Clear liquid diet, n.p.o. after midnight Protonix every 12 hourly observation for PUD prophylaxis SCD for DVT prophylaxis given concerns for lower GI bleed. Plan for the day: Hemoglobin has remained stable. Given stable hemoglobin, history of esophageal varices in the past for now plan for colonoscopy today. Appreciate surgical recommendations. Continue check hemoglobin every 12 hours. Significant hypokalemia potassium down to 2.9. Replace with 80 mEq of potassium overall. Renal function stable. Continue with current dose of midodrine and fludrocortisone. Blood pressure stable. Will plan to switch the dose of hydrocortisone to 5 mg twice daily. PDMP PDMP Reviewed: Not Reviewed Attestations 2 Medical Necessity Statement*: Requires further hospitalization for further evaluation of bright blood per rectum requiring colonoscopy in a patient with history of end-stage liver cirrhosis, significant hypokalemia in setting of CKD. Diagnoses Anemia D64.9 Bright red blood per rectum K62.5 Alcoholic cirrhosis of liver K70.30 Adrenal insufficiency E27.40 Chronic hypotension I95.89 Chronic kidney disease N18.9 Esophageal varices I85.00 Ascites due to alcoholic cirrhosis K70.31
--- NOTE | 2024-05-06 13:38 | PC.NURSE ---
Patient down in GI Lab doing a procedure. Patient left about 1230. Hydrocortisone not given. Dr. Law state give hydrocortisone to patient as soon as he arrives back to floor.
--- NOTE | 2024-05-06 14:20 | ANE.PACU2 ---
Inpatient post-anesthesia follow up: Airway intact: Yes Vital signs: Temperature 97.8 F Pulse Rate 99 Respiratory Rate 18 Blood Pressure 119/73 Pulse Oximetry 100 Oxygen Delivery Me thod Room Air Oxygen Flow Rate Fraction of Inspir ed Oxygen Hydration adequate: Yes Nausea and vomiting: No Pain level: 1 Mental status: Baseline
[2024-05-06] MEDS: potassium chloride ER 20 mEq Tablet 40 MEQ PO (15:03)
[2024-05-06] MEDS: hydrocortisone 10 mg Tablet 2.5 MG PO (15:41)
[2024-05-06] MEDS: morphine 4 mg/mL SDV 1 mL 2 MG IVP ×2 (19:38→23:53)
[2024-05-06 20:05] LABS: Hematocrit 29.9 % (37-53)
[2024-05-07] VITALS (8 sets, daily range): BP systolic 100–119; BP diastolic 57–73; PULSE 80–99; RESP 16–18; TEMP 36.3–36.8; O2SAT 96–100
[2024-05-07] MEDS: morphine 4 mg/mL SDV 1 mL 2 MG IVP (04:00)
[2024-05-07] MEDS: hydrocortisone 10 mg Tablet PO (05:43)
--- NOTE | 2024-05-07 08:42 | P.DS_ITS ---
Discharge Providers Date of Admission: 05/05/24 17:19 Date of Discharge: May 07, 2024 Attending Provider at Admission: Brian Law MD Attending Provider at Discharge: Brian Law MD Consults: Surgery Dr. Maciel Primary Care Provider: Alia Sanchez MD Diagnoses at Discharge Discharge Diagnosis (1) Anemia: Status: Acute (2) Bright red blood per rectum: Status: Acute (3) Alcoholic cirrhosis of liver: Status: Acute (4) Adrenal insufficiency: Status: Suspected (5) Chronic hypotension: Status: Acute (6) Chronic kidney disease: Status: Chronic (7) Esophageal varices: Status: Acute (8) Ascites due to alcoholic cirrhosis: Status: Acute Reason for Visit Reason for Visit: passing blood in stool / weak , tired Brief History: History as per HPI: Chase Rivero is a 49 year old male with a past medical history of end-stage decompensated alcoholic liver cirrhosis with recurrent ascites, has hepatorenal disease, CKD, chronic hyponatremia, chronic hypotension, with multiple admissions with most recently discharged on April 10, recent concerns for adrenal insufficiency presents to the ER today because of having bright blood per rectum without increased abdominal pain since . He has not taken his lactulose since Sunday. Denies any dizziness. Has been taking his medications as prescribed. States blood pressures have been better. Denies any nausea, vomiting, headache. Had paracentesis done earlier today morning. Denies any difficulty in breathing more than usual. Hospital Course Hospital Course Patient was admitted to the hospital further evaluation and management of bright blood per rectum. Hemoglobin during hospitalization remained stable. Surgery was consulted and he underwent colonoscopy on 05/06 which showed thickened ileocecal valve, multiple diffuse small angiectasia which were not actively bleeding. There was no active sign of bleeding during colonoscopy. His hospitalization was otherwise unremarkable. He is been discharged in hemodynamically stable condition with advised to repeat CBC in 1 week. His dose of prednisone has been changed to 5 mg twice daily. He is to follow-up with endocrinology as an outpatient for further workup given recent diagnosis of adrenal insufficiency. He has been advised to continue taking his lactulose and rifaximin as before. Physical Exam Narrative: General: No acute distress, AO x3, pallor present, icterus present HEENT: PERRLA, pupils bilaterally equal and reactive Chest: Normal vesicular breath sounds, no added sounds, equal good air entry bilaterally CVS: S1-S2 regular, no murmurs, no tachycardia, no gallops, no rubs Abdomen: Soft, nontender, distended, no organomegaly, bowel sounds present Neuro: No focal deficits, no facial deformity, AO x3, power 5/5 in all limbs Discharge Data Studies Completed and Pending Completed Studies During Hospitalization Category Date Time Status CT abdomen pelvis w con* [id number] Stat Cat Scan 05/05/24 14:51 Completed Pending at discharge Category Date Time Status Blood Culture Stat Lab 05/05/24 17:24 Results Complete Blood Count w/Auto AM LABS Lab 05/08/24 04:00 Ordered Complete Blood Count w/Auto Routine Lab 05/07/24 05:26 Ordered Comprehensive Metabolic Panel AM LABS Lab 05/08/24 04:00 Ordered Comprehensive Metabolic Panel Routine Lab 05/07/24 05:26 Ordered Magnesium AM LABS Lab 05/08/24 04:00 Ordered Magnesium Routine Lab 05/07/24 05:26 Ordered Phosphorus AM LABS Lab 05/08/24 04:00 Ordered Phosphorus Routine Lab 05/07/24 05:26 Ordered Pathology: Surgical [PTH] Routine Pth 05/06/24 13:53 Received Radiology Impressions Abdomen/Pelvis CT 05/05/24 14:51 IMPRESSION: Findings consistent with portal hypertension consisting hepatic cirrhosis, moderate ascites and splenic/gastric varices. Laboratory Results WBC Cancelled 05/07/24 05:07 Corrected WBC Cancelled 05/07/24 05:07 RBC Cancelled 05/07/24 05:07 Hgb Cancelled 05/07/24 05:07 Hct Cancelled 05/07/24 05:07 MCV Cancelled 05/07/24 05:07 MCH Cancelled 05/07/24 05:07 MCHC Cancelled 05/07/24 05:07 RDW Cancelled 05/07/24 05:07 Plt Count Cancelled 05/07/24 05:07 MPV Cancelled 05/07/24 05:07 Gran % Cancelled 05/07/24 05:07 Neut % (Auto) Cancelled 05/07/24 05:07 Lymph % (Auto) Cancelled 05/07/24 05:07 [place] % (Auto) Cancelled 05/07/24 05:07 Eos % (Auto) Cancelled 05/07/24 05:07 Baso % (Auto) Cancelled 05/07/24 05:07 Neut # (Auto) Cancelled 05/07/24 05:07 Lymph # (Auto) Cancelled 05/07/24 05:07 [place] # (Auto) Cancelled 05/07/24 05:07 Eos # (Auto) Cancelled 05/07/24 05:07 Baso # (Auto) Cancelled 05/07/24 05:07 Absolute Gran (auto) Cancelled 05/07/24 05:07 Nucleated RBC % (auto) Cancelled 05/07/24 05:07 Nucleated RBCs # Cancelled 05/07/24 05:07 PT 15.90 SECONDS (12.1-14.9) H 05/05/24 14:36 INR 1.19 (0.8-1.2) 05/05/24 14:36 APTT 35.4 SECONDS (23.9-36.7) 05/05/24 11:55 Sodium Cancelled 05/07/24 05:07 Potassium Cancelled 05/07/24 05:07 Chloride Cancelled 05/07/24 05:07 Carbon Dioxide Cancelled 05/07/24 05:07 Anion Gap Cancelled 05/07/24 05:07 BUN Cancelled 05/07/24 05:07 Creatinine Cancelled 05/07/24 05:07 GFR Calculation Cancelled 05/07/24 05:07 Glucose Cancelled 05/07/24 05:07 Calculated Osmolality Cancelled 05/07/24 05:07 Lactic Acid 2.9 mmol/L (0.5-2.2) H 05/05/24 14:36 Lactic Acid (Sepsis) 2.4 mmol/L (0.5-2.2) H 05/05/24 20:01 Calcium Cancelled 05/07/24 05:07 Phosphorus Cancelled 05/07/24 05:07 Magnesium Cancelled 05/07/24 05:07 Iron 107 ug/dL (59-158) 05/05/24 14:36 TIBC 138 mcg/dl 05/05/24 14:36 % Saturation 77.5 % (20-50) H 05/05/24 14:36 Unsat Iron Binding 31 ug/dL (112-347) L 05/05/24 14:36 Total Bilirubin Cancelled 05/07/24 05:07 AST Cancelled 05/07/24 05:07 ALT Cancelled 05/07/24 05:07 Alkaline Phosphatase Cancelled 05/07/24 05:07 Ammonia 71 umol/L (16-60) H 05/05/24 14:36 Total Protein Cancelled 05/07/24 05:07 Albumin Cancelled 05/07/24 05:07 Globulin Cancelled 05/07/24 05:07 Lipase 59 U/L (13-60) 05/05/24 14:36 Vitamin B12 1318 pg/mL (232-1245) H 05/05/24 14:36 Folate 9.1 ng/mL (4.5-32.2) 05/06/24 04:27 Vitals Last Vital Signs Temp 97.8 F 05/07/24 07:58 Pulse 99 05/07/24 07:58 Resp 18 05/07/24 07:58 BP 119/73 05/07/24 07:58 Pulse Ox 100 05/07/24 07:58 O2 Del Method Room Air 05/07/24 07:58 Discharge Plan Discharge Patient Disposition: Home Condition: Stable Prescriptions: Continued ondansetron HCl 4 mg tablet 4 mg PO Q8H PRN (Reason: Nausea And Vomiting) 30 Days Qty: 30 0RF albuterol sulfate [Ventolin HFA] 90 mcg/actuation HFA aerosol inhaler 2 inh inhalation Q6H PRN (Reason: shortness of breath or wheezing) Qty: 6.7 0RF lactulose [Constulose] 10 gram/15 mL solution 15 ml PO BID PRN (Reason: Stomach Upset) pantoprazole 40 mg tablet,delayed release (DR/EC) 40 mg PO Q12H 30 Days Qty: 60 0RF sucralfate 1 gram tablet 1 g PO BID fludrocortisone 0.1 mg Tablet 0.1 mg PO DAILY 30 Days Qty: 30 0RF midodrine 5 mg tablet 10 mg PO TID metoclopramide HCl 5 mg tablet 5 mg PO BID PRN (Reason: Nausea And Vomiting) rifaximin 550 mg Tablet 550 mg PO BID tramadol 50 mg tablet 50 mg PO Q8H PRN (Reason: pain) Qty: 10 0RF trazodone 50 mg tablet 50 mg PO BEDTIME hydrocodone-acetaminophen 5-325 mg tablet 1 tab PO DAILY PRN (Reason: Pain) fluticasone propion-salmeterol [Wixela Inhub] 100-50 mcg/dose Blister With Device 1 inh INHALATION BID Changed hydrocortisone 5 mg tablet 5 mg PO BID Qty: 60 0RF Discharge Orders: Discharge Order (Routine); Ordered 05/07/24 Ordered By: Brian Law Referrals: Alia Sanchez MD [Primary Care Provider] - 05/19/24 11:30 am (Reapeat labs before appt. ) Abimbola Davis MD [Physician] - 7-10 days (Concern for adrenal insufficiency We have notified your physician's clinic of the need for a follow-up appointment to be scheduled. If you have not heard from them within the next 2 business days, please call them directly. ) Discharge Diet: GI Soft Discharge Activity: Resume usual activity and Increase activity as tolerated Patient Instructions: Gastrointestinal Bleeding (DC), GI Post Discharge Instructions w/ Anesthesia Activity Restrictions/Additional Instructions: Repeat hemoglobin in 1 week. Please follow-up as an outpatient for endoscopy as scheduled before. Dose of hydrocortisone has been changed to 5 mg in the morning and 5 mg in evening. Be sure to follow-up with endocrinology office/Dr. Davis at the earliest for further workup and management of adrenal insufficiency. Discharge Attestations Time Spent in Discharge Care*: greater than 30 min Specific Discharge Activities: educating patient, educating and/or supporting family/caregiver, discussing with pcp/other providers, discussing with classification case manager/social workers/dc planners, documenting/other paperwork and evaluating patient/reviewing data Status at Discharge: Cognitive status at discharge: cognitively intact , Behavioral status at discharge: cooperative , Functional status at discharge: other assisted ambulation , Overall status at discharge: patient is back to baseline Quality Metrics Clinical Quality Measures [ No reported AMI, CVA or VTE this stay] Coding Level of Care Code 18246 Total time (in minutes) for Discharge: 60 Diagnoses Anemia D64.9 Bright red blood per rectum K62.5 Alcoholic cirrhosis of liver K70.30 Adrenal insufficiency E27.40 Chronic hypotension I95.89 Chronic kidney disease N18.9 Esophageal varices I85.00 Ascites due to alcoholic cirrhosis K70.31
[2024-05-07] MEDS: docusate sodium 100 mg Capsule PO (09:10)
[2024-05-07] MEDS: lactulose oral liq 20 gm/30 mL UDC 30 GM PO (09:10)
[2024-05-07] MEDS: fludrocortisone 0.1 mg Tablet PO (09:10)
[2024-05-07] MEDS: HYDROcodone-acetaminophen 5-325 mg Tablet 1 TAB PO (09:10)
[2024-05-07] MEDS: rifaximin 200 mg Tablet 600 MG PO (09:10)
[2024-05-07] MEDS: midodrine 5 mg TABLET 10 MG PO (09:11)
[2024-05-07] MEDS: sucralfate 1 gm Tablet PO (09:11)
[2024-05-07] MEDS: pantoprazole 40 mg SDV IVP (09:26)
[2024-05-07 12:37] LABS: Basophils # 0.1 10^3/uL (0.0-0.1); Basophils % 0.5 %; Eosinophils # 0.2 10^3/uL (0.0-0.8); Eosinophils % 2.5 %; Lymphocytes # 0.5 10^3/uL (0.8-4.8); Mean Corpuscular HGB Conc 32.7 g/dL (30-55); Mean Corpuscular Hemoglobin 36.3 pg (27-33); Mean Corpuscular Volume 111.1 fl (82-101); Mean Platelet Volume 10.1 fL (7.4-10.4); Monocytes # 1.5 10^3/uL (0.2-0.9); Monocytes % 16.3 %; Neutrophils # 6.92 10^3/uL (1.8-7.7); Neutrophils % 74.9 %; Nucleated Red Blood Cells % 0 %; Platelet Count 95 10^3/cmm (157-399); Red Cell Distribution Width 23.5 % (12.1-15.1); White Blood Count 9.23 10^3/uL (3.29-11.43)
[2024-05-07 12:55] LABS: Alanine Aminotransferase 38 U/L (0-41); Albumin Level 3.9 g/dL (3.5-5.2); Alkaline Phosphatase 122 U/L (40-130); Aspartate Amino Transferase 44 U/L (0-40); Blood Urea Nitrogen 44 mg/dL (6-20); Calcium 9.4 mg/dL (8.5-10.5); Carbon Dioxide 12 mmol/L (22-29); Chloride 98 mmol/L (98-107); Creatinine Clr Calc Pharmacy 28.6082; Globulin 2.4 g/dL (1.3-4.6); Glomerular Filtration Rate 24.1 mL/min (90-130); Glucose 142 mg/dL (65-115); Magnesium 2.7 mg/dL (1.7-2.3); Osmolality Calculated 278 mOsm/kg (285-295); Phosphorus 3.6 mg/dL (2.5-4.5); Sodium 127 mmol/L (136-145); Total Protein 6.3 g/dL (6.6-8.7)
[2024-05-07 12:58] LABS: Anion Gap 20.9 (5-19); Potassium 3.9 mmol/L (3.5-5.1)
--- NOTE | 2024-05-07 13:01 | PC.NURSE ---
Instructor present while student discontinued IV.
[2024-05-07] MEDS: hydrocortisone 10 mg Tablet 5 MG PO (13:02)
--- NOTE | 2024-05-07 14:54 | PC.NURSE ---
Discussed discharge plan, medications, follow up appointments and to have HGB drawn in a week. Patient and spouse verbalized understanding.
== END 2024-05-07 13:55 | disposition home or self-care (01) | DRG 378 ==
LOC: ER 16:58 → ER IP 17:20 → MEDSURG 18:46
PROVIDERS: Emergency Medicine; Student in an Organized Health Care Education/Training Program; Admitting Provider Student in an Organized Health Care Education/Training Program; Emergency Provider Family Medicine; PCP Family Medicine; Visit Provider Student in an Organized Health Care Education/Training Program
PROC: 0DJD8ZZ Inspection of Lower Intestinal Tract, Via Natural or Artificial Opening Endoscopic (ICD-10-PCS; CPT 45378; principal; 2024-05-06 12:30)
DX: K62.5 Hemorrhage of anus and rectum (principal); E27.40 Unspecified adrenocortical insufficiency; I85.00 Esophageal varices without bleeding; E87.1 Hypo-osmolality and hyponatremia; D64.9 Anemia, unspecified; K70.31 Alcoholic cirrhosis of liver with ascites; I95.89 Other hypotension; N18.9 Chronic kidney disease, unspecified; Z87.891 Personal history of nicotine dependence; K57.30 Diverticulosis of large intestine without perforation or abscess without bleeding
CPT/HCPCS: 36415; 45380; 74177; 80053; 82140; 82607; 82746; 83540; 83550; 83605; 83690; 83735; 84100; 85014; 85018; 85025; 85610; 85730; 87040; 88305; 94664; 96365; 99285; J2270; J2405; J2470; J2543; J2704; J3480; J7040; J8499; J9999

== ENCOUNTER → 2024-05-12 10:42 | Day surgery (SDC) | payer OTHER, SELFPAY ==
[2024-05-12 10:56] VITALS: BP 114/76; PULSE 95; RESP 16; TEMP 36.2; O2SAT 100
[2024-05-12 11:41] LABS: INR 1.24 (0.8-1.2)
--- NOTE | 2024-05-12 11:44 | US_ITS ---
WS: [id number] ULTRASOUND-GUIDED THERAPEUTIC AND DIAGNOSTIC PARACENTESIS Procedure, risks, and complications have been explained to the patient. Consent is obtained. Utilizing aseptic technique and 1% buffered lidocaine, a small dermatome was made through which a 5 Swiss Yueh catheter was inserted. Approximately 6500 ml of clear peritoneal fluid was obtained without difficulty. No complications encountered. Specimen collected as requested. US/US paracentesis abd w [id number] IMPRESSION: Uncomplicated paracentesis yielding 6500 ml of peritoneal fluid.
[2024-05-12 11:49] LABS: Alanine Aminotransferase 34 U/L (0-41); Albumin Level 4.3 g/dL (3.5-5.2); Alkaline Phosphatase 163 U/L (40-130); Blood Urea Nitrogen 65 mg/dL (6-20); Calcium 9.6 mg/dL (8.5-10.5); Carbon Dioxide 12 mmol/L (22-29); Chloride 91 mmol/L (98-107); Globulin 2.7 g/dL (1.3-4.6); Glomerular Filtration Rate 12.3 mL/min (90-130); Glucose 116 mg/dL (65-115); Osmolality Calculated 278 mOsm/kg (285-295); Sodium 124 mmol/L (136-145)
[2024-05-12 11:51] LABS: Anion Gap 24.8 (5-19); Aspartate Amino Transferase 31 U/L (0-40); Potassium 3.8 mmol/L (3.5-5.1)
[2024-05-12 12:42] LABS: Appearance, Peritoneal Fluid Cloudy (Clear); Color, Peritoneal Fluid Yellow (Pale Yellow); Cyto Order Verification No Order; Pathology Referral Yes
[2024-05-12 12:45] LABS: Mononuclear #, Pertinoneal Fl 0.621 10^3/uL; Polynuclear # Cells, Perit 3.053 10^3/uL; RBC Pertioneal Fluid 2 10^3/uL; WBC Peritoneal Fluid 3674 /uL
[2024-05-12] MEDS: albumin 50 G/200 ML BAG 60 G IV (12:47)
[2024-05-12 13:45] LABS: Basophils # 0.1 10^3/uL (0.0-0.1); Basophils % 0.2 %; Eosinophils # 0.1 10^3/uL (0.0-0.8); Eosinophils % 0.3 %; Hematocrit 28.6 % (37-53); Lymphocytes # 0.7 10^3/uL (0.8-4.8); Lymphocytes % 3.2 %; Mean Corpuscular HGB Conc 37.4 g/dL (30-55); Monocytes # 1.6 10^3/uL (0.2-0.9); Monocytes % 7.5 %; Neutrophils # 18.16 10^3/uL (1.8-7.7); Neutrophils % 86.8 %; Nucleated Red Blood Cells % 0 %; Platelet Count 91 10^3/cmm (157-399); Red Blood Count 2.89 10^6/uL (3.85-5.65); Red Cell Distribution Width 20.7 % (12.1-15.1); White Blood Count 20.95 10^3/uL (3.29-11.43)
== END ==
LOC: GILAB 10:42
PROVIDERS: Radiology Diagnostic Radiology; PCP Family Medicine; Visit Provider Internal Medicine Gastroenterology
PROC: (CPT 49082; principal; 2024-05-12 13:00)
DX: R18.8 Other ascites (principal)
CPT/HCPCS: 36415; 49083; 80053; 80503; 85025; 85610; 87070; 87075; 87205; 89050; P9046

== ENCOUNTER 2024-05-12 16:05 | Inpatient (IN) | payer OTHER, SELFPAY ==
[2024-05-12] VITALS (7 sets, daily range): BP systolic 99–116; BP diastolic 61–86; PULSE 80–92; RESP 15–16; TEMP 36.4; O2SAT 99–100; BMI 19.4; BMI 19.1
[2024-05-12 16:53] LABS: Basophils # 0.1 10^3/uL (0.0-0.1); Basophils % 0.3 %; Eosinophils % 0.2 %; Hematocrit 31.7 % (37-53); Lymphocytes # 0.6 10^3/uL (0.8-4.8); Lymphocytes % 2.8 %; Mean Corpuscular Hemoglobin 37.1 pg (27-33); Mean Platelet Volume 10.4 fL (7.4-10.4); Monocytes # 1.4 10^3/uL (0.2-0.9); Monocytes % 6.8 %; Neutrophils # 18.65 10^3/uL (1.8-7.7); Neutrophils % 88.1 %; Nucleated Red Blood Cells % 0 %; Platelet Count 103 10^3/cmm (157-399); Red Blood Count 2.99 10^6/uL (3.85-5.65); Red Cell Distribution Width 21.9 % (12.1-15.1); White Blood Count 21.17 10^3/uL (3.29-11.43)
--- NOTE | 2024-05-12 16:55 | W.ED.RECABL ---
HPI - Recheck/Abnormal Lab/Rx General: Chief Complaint: Recheck/Abnormal Lab/Rx Stated Complaint: sofia sent, increased creatinine and bilirubin Time Seen by Provider: 05/12/24 16:52 History of Present Illness: 49-year-old male presents to the emergency room with abnormal labs. Patient has a history of hepatorenal syndrome alcoholic liver cirrhosis he underwent paracentesis earlier today had 7 L removed prior to that he had lab work drawn showed worsening his creatinine and elevation of his T. bili he was directed back to the emergency room by physicians at [facility]. He has some mild abdominal discomfort most of which is chronic he states he was slightly short of breath before he had his paracentesis but that has improved after the paracentesis he denies any fever sweats or chills no chest pain. Reviewing labs drawn earlier today his anion gap was elevated as well at 24. He does get paracentesis weekly. Related Data Home Medications ?Medication ?Instructions ?Recorded ?Confirmed metoclopramide HCl 5 mg tablet 5 mg PO BID PRN Nausea And Vomiting 02/06/24 05/13/24 midodrine 5 mg tablet 10 mg PO TID 02/06/24 05/13/24 rifaximin 550 mg tablet 550 mg PO BID 02/06/24 05/13/24 lactulose 10 gram/15 mL oral 15 ml PO BID PRN Stomach Upset 02/29/24 05/13/24 solution (Constulose) sucralfate 1 gram tablet 1 g PO BID 04/04/24 05/13/24 fluticasone 100 mcg-salmeterol 50 1 inh inhalation BID 05/05/24 05/13/24 mcg/dose blistr powdr for inhalation (Wixela Inhub) hydrocodone 5 mg-acetaminophen 325 1 tab PO DAILY PRN Pain 05/05/24 05/13/24 mg tablet trazodone 50 mg tablet 50 mg PO BEDTIME 05/05/24 05/13/24 Florinef 0.1 mg PO DAILY 05/13/24 05/13/24 Previous Rx's ?Medication ?Instructions ?Recorded ondansetron HCl 4 mg tablet 4 mg PO Q8H PRN Nausea And 01/02/24 Vomiting 30 days #30 tabs albuterol sulfate 90 mcg/actuation 2 inh inhalation Q6H PRN shortness 01/08/24 aerosol inhaler (Ventolin HFA) of breath or wheezing #6.7 grams pantoprazole 40 mg tablet,delayed 40 mg PO Q12H 30 days #60 tabs 03/04/24 release hydrocortisone 5 mg tablet 5 mg PO BID #60 tabs 05/07/24 tramadol 50 mg tablet 50 mg PO Q8H PRN pain #10 tabs 05/07/24 Allergies Allergy/AdvReac Type Severity Reaction Status Date / Time No Known Allergies Allergy Verified 05/12/24 16:14 Review of Systems Const: Denies: fever(s) or chills Card: Denies: chest pain Resp: Denies: dyspnea GI: Reports: abdominal pain and nausea : Denies: dysuria, urinary frequency or urinary urgency Musc: Denies: neck pain or back pain Skin/Breast: Denies: rash PFSH ED PFSH: Medical History Hepatorenal syndrome Cardiorenal syndrome SBP (spontaneous bacterial peritonitis) Acute hepatic failure Abdominal ascites Smoker Colitis Low oxygen saturation Enteropathy Smoking addiction Alcohol use disorder Thrombocytopenia Liver cirrhosis Hematuria Ascites due to alcoholic cirrhosis Abdominal pain 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 History of colon polyps Rectal polyp 10 and 15 cm, cecum biopsy Sigmoid colon polyp Seasonal allergies Splenomegaly Enterocolitis 2016 Surgical History Status post colonoscopy with polypectomy H/O esophagogastroduodenoscopy Vasectomy status H/O left inguinal hernia repair Family History Denies family history of Cancer Social History Smoking and tobacco/nicotine status: former use of tobacco/nicotine Alcohol intake: former Substance/Drug Use: never Lives independently: Yes Housing: House Marital status: 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 Physical Exam Const: GENERAL APPEARANCE: cooperative ORIENTATION/CONSCIOUSNESS: Yes awake, Yes oriented to person, Yes oriented to place and Yes oriented to time HENMT: COMMON NORMALS: normocephalic, atraumatic and hearing grossly normal bilaterally HEAD & SCALP: normocephalic and atraumatic Resp: COMMON NORMALS: normal respiratory effort, No retractions, No use of accessory muscles and clear to auscultation bilaterally AUSCULTATION: clear to auscultation bilaterally Cardio: COMMON NORMALS: regular rate, regular rhythm and No murmurs present (Cardio) RATE: regular rate RHYTHM: regular rhythm GI: COMMON NORMALS: No hepatosplenomegaly present AUSCULTATION: Yes normoactive bowel sounds PALPATION: Yes Tenderness to palpation present (GI), No Guarding due to palpation present (GI) and Yes No hepatosplenomegaly present Extremity: COMMON NORMALS: normal to inspection, capillary refill normal, no clubbing, cyanosis or edema, no calf tenderness and no pedal edema Neuro: SENSORIUM/ORIENTATION: Yes oriented to person, Yes oriented to place and Yes oriented to time Skin: COMMON NORMALS: no rashes or lesions noted GENERAL SKIN EXAM: no rashes or lesions noted Course Vital Signs: Vital signs: Vital Signs Temperature 97.4 F L 05/13/24 03:16 Pulse Rate 71 05/13/24 03:16 Respiratory Rate 15 05/13/24 03:16 Blood Pressure 94/53 05/13/24 03:16 Pulse Oximetry 96 05/13/24 03:16 Oxygen Delivery Me thod Room Air 05/13/24 03:16 MDM - Recheck/Abnormal Lab/Rx Medical Decision Making Hepatorenal syndrome is highly suspicious for SBP with increasing white count. His creatinine is T. bili of actually improved from earlier in the day. Will admit the patient has started on Rocephin we did contact radiology and reviewed the chart there was a culture of the fluid done that was drawn off with paracentesis earlier today. Blood cultures were also done. Patient additionally has hyponatremia is given IV normal saline. Discussed with hospitalist orders written to admit to the ICU will also consult nephrology. Reviewed findings with the patient and the family. Because of patient's hepatorenal syndrome and acute on chronic kidney failure is given a modified fluid bolus which he did respond to well. His baseline blood pressure is between 101 15 systolic his initial blood pressure was 99 systolic with fluids he increased to 116 systolic and at times above. Did not give him the full 30 mL/kg fluid bolus because this would significantly worsen his condition. Since he did respond to the initial 1 L bolus can continue to reassess discussed with hospitalist and chief of field operations. Pending on the patient's condition he may ultimately be able to receive up to 30 mL/kg if necessary and measured amounts over time Medical Records I reviewed the patient's medical records. Lab Data I reviewed the patient's lab results. 05/12/24 16:36 05/13/24 03:21 Radiology Impressions Abdomen/Pelvis CT 05/12/24 17:31 IMPRESSION: 1. Diffuse liver cirrhosis. 2. Cholelithiasis. 3. Moderate amount of abdominopelvic ascites. 4. Persistent bilateral renal hyperdensity which may be related to retained contrast from prior CT examination. Please correlate clinically for developing contrast nephropathy. 5. Moderate-sized right inguinal hernia containing fat and fluid. 6. Other findings as detailed above. Chest X-Ray 05/12/24 17:31 IMPRESSION: Unremarkable chest radiograph Laboratory Results WBC 21.17 10^3/uL (3.29-11.43) H 05/12/24 16:36 RBC 2.99 10^6/uL (3.85-5.65) L 05/12/24 16:36 Hgb 11.10 g/dL (11.27-16.99) L 05/12/24 16:36 Hct 31.7 % (37-53) L 05/12/24 16:36 MCV 106.0 fl (82-101) H D 05/12/24 16:36 MCH 37.1 pg (27-33) H 05/12/24 16:36 MCHC 35.0 g/dL (30-55) D 05/12/24 16:36 RDW 21.9 % (12.1-15.1) H 05/12/24 16:36 Plt Count 103 10^3/cmm (157-399) L 05/12/24 16:36 MPV 10.4 fL (7.4-10.4) 05/12/24 16:36 Neut % (Auto) 88.1 % 05/12/24 16:36 Lymph % (Auto) 2.8 % 05/12/24 16:36 Denali % (Auto) 6.8 % 05/12/24 16:36 Eos % (Auto) 0.2 % 05/12/24 16:36 Baso % (Auto) 0.3 % 05/12/24 16:36 Neut # (Auto) 18.65 10^3/uL (1.8-7.7) H 05/12/24 16:36 Lymph # (Auto) 0.6 10^3/uL (0.8-4.8) L 05/12/24 16:36 Denali # (Auto) 1.4 10^3/uL (0.2-0.9) H 05/12/24 16:36 Eos # (Auto) 0.0 10^3/uL (0.0-0.8) 05/12/24 16:36 Baso # (Auto) 0.1 10^3/uL (0.0-0.1) 05/12/24 16:36 Nucleated RBC % (auto) 0 % 05/12/24 16:36 Nucleated RBCs # 0.0 /100WBC 05/12/24 16:36 PT 16.40 SECONDS (12.1-14.9) H 05/12/24 17:19 INR 1.23 (0.8-1.2) H 05/12/24 17:19 Sodium 120 mmol/L (136-145) L 05/12/24 16:36 Potassium 3.8 mmol/L (3.5-5.1) 05/12/24 16:36 Chloride 89 mmol/L (98-107) L 05/12/24 16:36 Carbon Dioxide 8 mmol/L (22-29) L* 05/12/24 16:36 Anion Gap 26.8 (5-19) H 05/12/24 16:36 BUN 63 mg/dL (6-20) H 05/12/24 16:36 Creatinine 4.8 mg/dL (0.7-1.2) H 05/12/24 16:36 GFR Calculation 12.9 mL/min (90-130) L 05/12/24 16:36 Glucose 145 mg/dL (65-115) H 05/12/24 16:36 Calculated Osmolality 271 mOsm/kg (285-295) L 05/12/24 16:36 Lactic Acid 4.2 mmol/L (0.5-2.2) H* 05/12/24 16:36 Calcium 9.1 mg/dL (8.5-10.5) 05/12/24 16:36 Total Bilirubin 4.6 mg/dL (0.15-1.2) H 05/12/24 16:36 AST 28 U/L (0-40) 05/12/24 16:36 ALT 30 U/L (0-41) 05/12/24 16:36 Alkaline Phosphatase 129 U/L (40-130) 05/12/24 16:36 Ammonia 69 umol/L (16-60) H 05/12/24 17:19 C-Reactive Protein 104.0 mg/L (0.0-4.9) H 05/12/24 16:36 Total Protein 6.2 g/dL (6.6-8.7) L 05/12/24 16:36 Albumin 3.9 g/dL (3.5-5.2) 05/12/24 16:36 Globulin 2.3 g/dL (1.3-4.6) 05/12/24 16:36 Lipase 151 U/L (13-60) H 05/12/24 16:36 All radiology interpretation(s) finalized by discharge Discharge Plan Discharge Patient Disposition: Admitted As Inpatient Admit Provider: Kassandra Avelar Clinical Impression: Sepsis, Ascites due to alcoholic cirrhosis, Hepatorenal syndrome, Anemia, Generalized weakness, Acute hyponatremia, [id number] kidney injury, Acute bacterial peritonitis Condition: Stable Coding Level of Care Code ED Logistics Project Manager for Jess López
[2024-05-12 17:18] LABS: Alanine Aminotransferase 30 U/L (0-41); Albumin Level 3.9 g/dL (3.5-5.2); Alkaline Phosphatase 129 U/L (40-130); Blood Urea Nitrogen 63 mg/dL (6-20); Calcium 9.1 mg/dL (8.5-10.5); Chloride 89 mmol/L (98-107); Creatinine Clr Calc Pharmacy 16.7354; Globulin 2.3 g/dL (1.3-4.6); Glomerular Filtration Rate 12.9 mL/min (90-130); Glucose 145 mg/dL (65-115); Lipase 151 U/L (13-60); Osmolality Calculated 271 mOsm/kg (285-295); Sodium 120 mmol/L (136-145); Total Bilirubin 4.6 mg/dL (0.15-1.2); Total Protein 6.2 g/dL (6.6-8.7)
[2024-05-12 17:26] LABS: Anion Gap 26.8 (5-19); Aspartate Amino Transferase 28 U/L (0-40); Potassium 3.8 mmol/L (3.5-5.1)
[2024-05-12 17:28] LABS: Carbon Dioxide 8 mmol/L (22-29)
--- NOTE | 2024-05-12 17:31 | XRR_ITS ---
PROCEDURE INFORMATION: Exam: XR Chest Exam date and time: 05/12/2024 5:33 PM Age: 49 years old Clinical indication: Cough and dyspnea; Additional info: Dyspnea/cough TECHNIQUE: Imaging protocol: Radiologic exam of the chest. Views: 1 view. COMPARISON: CR (CHEST, ) 05/01/2024 1:43 AM FINDINGS: Lungs: Visualized lung bases are unremarkable. There is no focal lung consolidation. Pleural spaces: There are no pleural effusions or pneumothorax. Heart/Mediastinum: Heart is normal in size. Bones/joints: Visualized osseous structures are unremarkable. XR/XR chest 1V portable [id number] IMPRESSION: Unremarkable chest radiograph
--- NOTE | 2024-05-12 17:31 | CTR_ITS ---
PROCEDURE INFORMATION: Exam: CT Abdomen And Pelvis Without Contrast Exam date and time: 05/12/2024 6:19 PM Age: 49 years old Clinical indication: Abdominal pain; Prior surgery; Surgery date: 6+ months; Surgery type: Hernia TECHNIQUE: Imaging protocol: Computed tomography of the abdomen and pelvis without contrast. Radiation optimization: All CT scans at this facility use at least one of these dose optimization techniques: automated exposure control; mA and/or kV adjustment per patient size (includes targeted exams where dose is matched to clinical indication); or iterative reconstruction. COMPARISON: CT abdomen pelvis w con* [id number] 05/05/2024 3:00 PM RADIATION DOSE METRICS: Total DLP (mGy-cm): 364 FINDINGS: Liver: The liver is again noted to be diffusely shrunken and nodular consistent with underlying cirrhosis. Gallbladder and biliary ducts: Cholelithiasis is noted. Pancreas: Normal. No ductal dilation. Spleen: Normal. No splenomegaly. Adrenal glands: Normal. No mass. Kidneys and ureters: There is persistent hyperdensity of the kidneys with retained contrast material. Please correlate clinically for contrast nephropathy. There is mild left renal atrophy. Stomach and bowel: There is no evidence of bowel obstruction. Appendix: No evidence of appendicitis. Intraperitoneal space: There is moderate amount of abdominal ascites. There is no free air or abscess collection. Vasculature: Unremarkable. No abdominal aortic aneurysm. Lymph nodes: Unremarkable. No enlarged lymph nodes. Urinary bladder: Unremarkable as visualized. Reproductive: Unremarkable as visualized. Bones/joints: Unremarkable. No acute fracture. Soft tissues: There is a moderate-sized right inguinal hernia containing fluid and fat. Other findings: Evaluation is limited by lack of oral and intravenous contrast. CT/CT abdomen pelvis wo con [id number] IMPRESSION: 1. Diffuse liver cirrhosis. 2. Cholelithiasis. 3. Moderate amount of abdominopelvic ascites. 4. Persistent bilateral renal hyperdensity which may be related to retained contrast from prior CT examination. Please correlate clinically for developing contrast nephropathy. 5. Moderate-sized right inguinal hernia containing fat and fluid. 6. Other findings as detailed above.
[2024-05-12 17:36] LABS: INR 1.23 (0.8-1.2)
[2024-05-12 17:42] LABS: Ammonia 69 umol/L (16-60)
[2024-05-12 17:54] LABS: Lactic Sepsis W/Reflex 4.2 mmol/L (0.5-2.2)
[2024-05-12] MEDS: cefTRIAXone 2,000 mg SDV 2000 MG IVP (18:11)
[2024-05-12] MEDS: sodium chloride 0.9% 1,000 ML 999 ML IV (18:11)
--- NOTE | 2024-05-12 18:45 | PM.HP ---
Providers/Chief Complaint Primary Care Provider: Alia Sanchez MD Chief Complaint: sofia sent, increased creatinine and bilirubin History of Present Illness Chase Rivero is a 49 year old male history of alcohol related liver cirrhosis, he is #1 candidate at [facility] for liver transplant, has an appointment with hepatology on Sunday this week, hepatorenal syndrome, gets weekly paracenteses on Mondays, recent paracentesis was today 6 L were removed, 1 she was nurse asked him to go to the hospital for MELD score of 33 and worsening of creatinine evaluation. Patient is stating that after paracentesis abdominal pain is sustaining most of the time it resolves he has experienced 2 episode of emesis. No fever chest pain or shortness of breath. Endorsing loss of weight, poor p.o. intake disturbed sleep cycle and intermittent confusion. 2 episodes of loose stools in the morning. Consistent with his medications. History of portal hypertension, recent admission for anemia, colonoscopy was unremarkable, patient does have a history of esophageal varices with band ligation, repeat EGD is pending in near future at [facility] no active complaint of hematemesis or significant mount of blood in stool. Hemoglobin is stable. colonoscopy on 05/06 which showed thickened ileocecal valve, multiple diffuse small angiectasia which were not actively bleeding. There was no active sign of bleeding during colonoscopy. Nephrology was consulted because his presentation is consistent with hepatorenal syndrome he has been started on octreotide midodrine and albumin and bicarb drip Patient also has adrenal insufficiency presentation as per previous discharge document. I have started him on stress dose steroids Patient is denying recent fever, hematemesis Review of Systems Const: Denies: fever(s) Eyes: Denies: change in vision ENMT: Denies: throat pain Card: Denies: chest pain or swelling of feet/ankles Resp: Denies: dyspnea GI: Reports: abdominal pain and vomiting Musc: Reports: back pain Neuro: Reports: difficulty walking and confusion Medications/Allergies Home Medications ?Medication ?Instructions ?Recorded ?Confirmed ?Last Taken ?Type ondansetron HCl 4 mg tablet 4 mg PO Q8H PRN Nausea And 01/02/24 05/08/24 04/20/24 Rx Vomiting 30 days #30 tabs albuterol sulfate 90 mcg/actuation 2 inh inhalation Q6H PRN shortness 11/05/08/24 04/20/24 Rx aerosol inhaler (Ventolin HFA) of breath or wheezing #6.7 grams metoclopramide HCl 5 mg tablet 5 mg PO BID PRN Nausea And Vomiting 02/06/24 05/08/24 05/05/24 History midodrine 5 mg tablet 10 mg PO TID 02/06/24 05/08/24 05/08/24 History rifaximin 550 mg tablet 550 mg PO BID 02/06/24 05/08/24 05/08/24 History lactulose 10 gram/15 mL oral 15 ml PO BID PRN Stomach Upset 02/29/24 05/08/24 04/20/24 History solution (Constulose) pantoprazole 40 mg tablet,delayed 40 mg PO Q12H 30 days #60 tabs 03/04/24 05/08/24 05/08/24 Rx release sucralfate 1 gram tablet 1 g PO BID 04/04/24 05/08/24 05/08/24 History fluticasone 100 mcg-salmeterol 50 1 inh inhalation BID 05/05/24 05/08/24 05/08/24 History mcg/dose blistr powdr for inhalation (Wixela Inhub) hydrocodone 5 mg-acetaminophen 325 1 tab PO DAILY PRN Pain 05/05/24 05/08/24 Unknown History mg tablet trazodone 50 mg tablet 50 mg PO BEDTIME 05/05/24 05/08/24 05/08/24 History hydrocortisone 5 mg tablet 5 mg PO BID #60 tabs 05/07/24 05/08/24 05/08/24 Rx tramadol 50 mg tablet 50 mg PO Q8H PRN pain #10 tabs 05/07/24 05/08/24 Unknown Rx Allergies Allergy/AdvReac Type Severity Reaction Status Date / Time No Known Allergies Allergy Verified 05/12/24 16:14 PFSH Acute PFSH: Medical History Hepatorenal syndrome Cardiorenal syndrome SBP (spontaneous bacterial peritonitis) Acute hepatic failure Abdominal ascites Smoker Colitis Low oxygen saturation Enteropathy Smoking addiction Alcohol use disorder Thrombocytopenia Liver cirrhosis Hematuria Ascites due to alcoholic cirrhosis Abdominal pain 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 History of colon polyps Rectal polyp 10 and 15 cm, cecum biopsy Sigmoid colon polyp Seasonal allergies Splenomegaly Enterocolitis 2017 Surgical History Status post colonoscopy with polypectomy H/O esophagogastroduodenoscopy Vasectomy status H/O left inguinal hernia repair Family History Denies family history of Cancer Social History Smoking and tobacco/nicotine status: former use of tobacco/nicotine Alcohol intake: former Substance/Drug Use: never Lives independently: Yes Housing: House 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 status: 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 Vitals/I&O/Wt Last Vital Signs Temp 97.5 F L 05/12/24 16:06 Pulse 80 05/12/24 18:15 BP 116/66 05/12/24 18:15 Pulse Ox 100 05/12/24 18:15 O2 Del Method Room Air 05/12/24 18:15 Weight last 48 hrs Weight 58.06 kg Physical Exam Narrative: Malnourished Sarcopenia Protein calorie malnourishment Awake and alert AOx4 GCS 15 No active focal deficit Right foot drop Abdomen is not distended Nontender Patient pleasant and cooperative at the bedside Currently patient is on room air Blood pressure stable Data 05/12/24 16:36 05/12/24 16:36 Micro: Microbiology 05/12/24 18:06 Blood Culture - Preliminary Blood SPECIMEN COLLECTED 05/12/24 17:19 Blood Culture - Preliminary Blood SPECIMEN COLLECTED A&P Assessment and plan (1) Chronic hypotension: (2) Adrenal insufficiency: (3) Esophageal varices: (4) Alcoholic cirrhosis of liver: (5) Liver cirrhosis: Qualifiers: Ascites presence: with ascites Hepatic cirrhosis type: unspecified hepatic cirrhosis Qualified Code(s): K74.60 - Unspecified cirrhosis of liver; R18.8 - Other ascites (6) History of umbilical hernia repair: (7) Ascites due to alcoholic cirrhosis: (8) Hepatorenal syndrome: (9) Chronic kidney disease: (10) Acute hyponatremia: (11) Anemia: (12) Generalized weakness: Plan Decompensated liver cirrhosis MELD score 33 Concern for hepatorenal syndrome Nephro consulted Patient currently on octreotide, midodrine, albumin and ceftriaxone Hold off on diuretics Paracentesis done today 6 L were removed, ER has asked lab to run cytology on ascitic fluid Patient is not endorsing fever, continue ceftriaxone 2 g daily Add Protonix is stating that she will follow-up with not sure which hepatology nurse, they have a message in portal as well, patient had an 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 regimen afterwards Currently blood pressure stable History of GI bleed: Colonoscopy unremarkable, history of portal hypertension: Esophageal varices no active worsening of anemia hemoglobin is stable at this point, patient has an EGD scheduled in near future at [facility] Patient is #1 candidate for liver transplant at [facility] Will continue renal diet for now with fluid restriction DVT prophylaxis: SCDs PDMP PDMP Reviewed: Not Reviewed Attestations Medical Necessity Statement*: More than 2 midnights anticipated Diagnoses Chronic hypotension I95.89 Adrenal insufficiency E27.40 Esophageal varices I85.00 Alcoholic cirrhosis of liver K70.30 Liver cirrhosis K74.60; R18.8 Ascites presence: with ascites Hepatic cirrhosis type: unspecified hepatic cirrhosis History of umbilical hernia repair Z98.890; Z87.19 Ascites due to alcoholic cirrhosis K70.31 Hepatorenal syndrome K76.7 Chronic kidney disease N18.9 Acute hyponatremia E87.1 Anemia D64.9 Generalized weakness R53.1
[2024-05-12 19:23] LABS: Reflex Lactate Order REFLEX LACTIC ORDERD
[2024-05-12] MEDS: prochlorperazine 10 mg/2 mL Inj 5 MG IVP (20:41)
[2024-05-12] MEDS: octreotide 500 MCG in sodium chloride 0.9% (100 ml) 100 ML 10.1 MCG IV (20:52)
[2024-05-12] MEDS: hydrocortisone 100 mg/2 mL SDV IVP (20:52)
[2024-05-12] MEDS: sodium bicarbonate 150 MEQ in dextrose 5% 1,000 ML 100 MEQ IV (20:52)
[2024-05-12] MEDS: FUROsemide 10 mg/mL SDV 2mL 20 MG IVP (20:53)
[2024-05-12] MEDS: midodrine 5 mg TABLET 10 MG PO (22:41)
[2024-05-12] MEDS: TRAMadol 50 mg Tablet PO (22:42)
[2024-05-12] MEDS: fludrocortisone 0.1 mg Tablet PO (22:42)
[2024-05-12 23:26] LABS: Blood Urea Nitrogen 66 mg/dL (6-20); Calcium 8.8 mg/dL (8.5-10.5); Chloride 93 mmol/L (98-107); Glomerular Filtration Rate 13.3 mL/min (90-130); Glucose 118 mg/dL (65-115); Magnesium 2.2 mg/dL (1.7-2.3); Osmolality Calculated 270 mOsm/kg (285-295); Sodium 120 mmol/L (136-145)
[2024-05-12 23:27] LABS: Lactic Acid level (Lactate) 2.1 mmol/L (0.5-2.2)
[2024-05-12 23:31] LABS: Carbon Dioxide 9 mmol/L (22-29)
[2024-05-12 23:32] LABS: Procalcitonin 6.46 ng/mL (0-0.5)
[2024-05-13] VITALS (9 sets, daily range): BP systolic 94–121; BP diastolic 53–69; PULSE 71–86; RESP 11–18; TEMP 36.3–36.9; O2SAT 96–99
[2024-05-13] MEDS: lactulose oral liq 20 gm/30 mL UDC PO ×3 (00:27→15:49)
[2024-05-13] MEDS: albumin 25 G/100 ML BAG 60 G IV ×3 (01:59→18:31)
[2024-05-13] MEDS: rifaximin 200 mg Tablet 600 MG PO ×3 (03:12→18:33)
--- NOTE | 2024-05-13 04:34 | PC.NURSE ---
2004- Patient is nauseous with 2 episodes of emesis. Per patient compazine works best for his nausea. Requesting antinausea medication. Received orders from Dr. Cook for compazine 5 mg Q12hr PRN. Patient also requesting home dose of tramadol. Per Dr. Cook okay to order home dose of tramadol 50 mg Q8hr PRN. 215- Patient requesting PM dose of rifaximin. Notified Dr. Cook and got orders to give rifaximin now. Patient and also educated on home medication usage. Patient refused to have medications put into pyxis, education was provided to not take home medications if they are to keep them at bedside. Patient encouraged to request home medications so that they can be given in the correct manner.
[2024-05-13 04:41] LABS: Alanine Aminotransferase 20 U/L (0-41); Albumin Level 3.7 g/dL (3.5-5.2); Alkaline Phosphatase 100 U/L (40-130); Anion Gap 19.3 (5-19); Aspartate Amino Transferase 16 U/L (0-40); Blood Urea Nitrogen 68 mg/dL (6-20); C Reactive Protein 77.3 mg/L (0.0-4.9); Calcium 8.5 mg/dL (8.5-10.5); Carbon Dioxide 14 mmol/L (22-29); Chloride 91 mmol/L (98-107); Globulin 1.7 g/dL (1.3-4.6); Glomerular Filtration Rate 12.6 mL/min (90-130); Glucose 166 mg/dL (65-115); Magnesium 2.1 mg/dL (1.7-2.3); Osmolality Calculated 276 mOsm/kg (285-295); Potassium 3.3 mmol/L (3.5-5.1); Sodium 121 mmol/L (136-145); Total Bilirubin 2.4 mg/dL (0.15-1.2); Total Protein 5.4 g/dL (6.6-8.7)
--- NOTE | 2024-05-13 04:46 | PM.CONSULT ---
Providers/Reason For Consult Consulting Physician/Specialty*: [facility]/Nephrology Reason for Consult*: Nephrology Primary Care Provider: Alia Sanchez MD History of Present Illness History of Present Illness Chase Rivero is a 49 year old male Patient is a 49-year-old male with past medical history of with alcoholic liver cirrhosis on transplant list, history of hepatorenal syndrome who gets weekly paracentesis was asked to go to the hospital due to worsening renal function. Patient also has a history of portal hypertension and recurrent anemia and esophageal varices. Lab data significant for white count of 21,000, hemoglobin of 11, sodium 120 bicarb level of 8 BUN of 63 and creatinine of 4.8 on presentation. Patient was started on IV albumin, octreotide and midodrine as well as bicarbonate drip at this time. Review of Systems Narrative: negative Medications/Allergies Home Medications ?Medication ?Instructions ?Recorded ?Confirmed ?Last Taken ?Type ondansetron HCl 4 mg tablet 4 mg PO Q8H PRN Nausea And 01/02/24 05/13/24 05/11/24 Rx Vomiting 30 days #30 tabs albuterol sulfate 90 mcg/actuation 2 inh inhalation Q6H PRN shortness 01/08/24 05/13/24 04/20/24 Rx aerosol inhaler (Ventolin HFA) of breath or wheezing #6.7 grams metoclopramide HCl 5 mg tablet 5 mg PO BID PRN Nausea And Vomiting 02/06/24 05/13/24 05/12/24 History midodrine 5 mg tablet 10 mg PO TID 02/06/24 05/13/24 05/12/24 History rifaximin 550 mg tablet 550 mg PO BID 02/06/24 05/13/24 05/12/24 History lactulose 10 gram/15 mL oral 15 ml PO BID PRN Stomach Upset 02/29/24 05/13/24 05/13/24 History solution (Constulose) pantoprazole 40 mg tablet,delayed 40 mg PO Q12H 30 days #60 tabs 03/04/24 05/13/24 05/12/24 Rx release sucralfate 1 gram tablet 1 g PO BID 04/04/24 05/13/24 05/12/24 History fluticasone 100 mcg-salmeterol 50 1 inh inhalation BID 05/05/24 05/13/2405/12/25 History mcg/dose blistr powdr for inhalation (Wixela Inhub) hydrocodone 5 mg-acetaminophen 325 1 tab PO DAILY PRN Pain 05/05/24 05/13/24 Unknown History mg tablet trazodone 50 mg tablet 50 mg PO BEDTIME 05/05/24 05/13/24 05/08/24 History hydrocortisone 5 mg tablet 5 mg PO BID #60 tabs 05/07/24 05/13/24 05/13/24 Rx tramadol 50 mg tablet 50 mg PO Q8H PRN pain #10 tabs 05/07/24 05/13/24 05/11/24 Rx Florinef 0.1 mg PO DAILY 05/13/24 05/13/24 1 Week Ago History ~05/06/24 Allergies Allergy/AdvReac Type Severity Reaction Status Date / Time No Known Allergies Allergy Verified 05/12/24 16:14 Current Medications Generic Name Dose Route Start Last Admin Trade Name Freq PRN Reason Stop Dose Admin Sodium Chloride 1,000 mls @ 999 mls/hr 05/12/24 17:48 05/12/24 18:11 Sodium Chloride 0.9% IV 05/12/24 18:48 999 mls/hr .Q1H1M ONE Administration PFSH Acute PFSH: Medical History Hepatorenal syndrome Cardiorenal syndrome SBP (spontaneous bacterial peritonitis) Acute hepatic failure Abdominal ascites Smoker Colitis Low oxygen saturation Enteropathy Smoking addiction Alcohol use disorder Thrombocytopenia Liver cirrhosis Hematuria Ascites due to alcoholic cirrhosis Abdominal pain 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 History of colon polyps Rectal polyp 10 and 15 cm, cecum biopsy Sigmoid colon polyp Seasonal allergies Splenomegaly Enterocolitis 2016 Surgical History Status post colonoscopy with polypectomy H/O esophagogastroduodenoscopy Vasectomy status H/O left inguinal hernia repair Family History Denies family history of Cancer Social History Smoking and tobacco/nicotine status: former use of tobacco/nicotine Alcohol intake: former Substance/Drug Use: never Lives independently: Yes Housing: House Marital status: 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 Acute on CKD : Baseline Cr 2-3 range , now with LAQUITA with Cr 5.0 , associated with severe metabolic acidosis, oliguric. Etiology likely prerenal, possible hepatorenal syndrome in the setting of large volume paracentesis. -Started on IV albumin octreotide and midodrine -Also started on bicarbonate drip -Bicarbonate levels have improved from 8-14 this morning, -Watch renal function closely for the next 24 to 48 hours, if no improvement will put him dialysis, patient is awaiting liver transplant currently , on transplant list at [place] 2. Severe metabolic acidosis: In the setting of liver cirrhosis, on bicarbonate drip, will also add Bicitra 3. Hypokalemia: Will replete 4. Alcoholic liver cirrhosis, on transplant list 5. History of GI bleeds in the setting of esophageal varices 6. Hyponatremia: Sodium 121 currently, will add fluid restriction monitor, check urine sodium and urine osmolality Patient evaluated using audiovisual cart. Time spent 40 minutes. PDMP PDMP Reviewed: Not Reviewed Consult Attestations Medical Necessity Statement: Per medicine team Coding Level of Care Code Acute Code for Chg Fwd Diagnoses [id number] kidney injury N17.9; N18.9
[2024-05-13 06:07] LABS: Basophils % 0.2 %; Lymphocytes # 0.2 10^3/uL (0.8-4.8); Lymphocytes % 2.1 %; Mean Corpuscular HGB Conc 37.7 g/dL (30-55); Mean Corpuscular Hemoglobin 35.8 pg (27-33); Mean Corpuscular Volume 94.8 fl (82-101); Mean Platelet Volume 10.3 fL (7.4-10.4); Monocytes # 0.8 10^3/uL (0.2-0.9); Monocytes % 7.6 %; Neutrophils # 9.76 10^3/uL (1.8-7.7); Nucleated Red Blood Cells % 0 %; Platelet Count 67 10^3/cmm (157-399); Red Blood Count 2.32 10^6/uL (3.85-5.65); Red Cell Distribution Width 20.4 % (12.1-15.1); White Blood Count 10.96 10^3/uL (3.29-11.43)
[2024-05-13] MEDS: hydrocortisone 100 mg/2 mL SDV IVP (06:45)
[2024-05-13] MEDS: octreotide 500 MCG in sodium chloride 0.9% (100 ml) 100 ML 10.1 MCG IV ×3 (06:45→23:29)
[2024-05-13] MEDS: TRAMadol 50 mg Tablet PO ×2 (06:45→17:00)
[2024-05-13 07:19] LABS: Add RBC Morph Yes; RBC Morph Comp No; Slide Review Slide Review Perform
[2024-05-13 07:20] LABS: Anisocytosis 1+; Poikilocytosis 1+; Target Cells Trace
[2024-05-13 07:21] LABS: Ovalocytes Trace
[2024-05-13 07:22] LABS: Pathology Refferal No
[2024-05-13] MEDS: sodium bicarbonate 150 MEQ in dextrose 5% 1,000 ML 100 MEQ IV ×2 (08:05→19:33)
[2024-05-13] MEDS: pantoprazole 40 mg SDV IVP ×2 (09:22→18:36)
[2024-05-13] MEDS: fludrocortisone 0.1 mg Tablet PO (09:22)
[2024-05-13] MEDS: midodrine 5 mg TABLET 10 MG PO ×3 (09:23→20:15)
--- NOTE | 2024-05-13 09:32 | PC.CHAP ---
Pastoral Care Encounter/Spiritual Assessment Type of Contact [] Declined machine i coremaker visit [] Patient/Family/Request visit [] Outpatient visit [] Follow-up visit [] Physician referral [] Code/Alert [x] Routine visit [] Staff referral [] Actively dying [] Patient sleeping [x] Family support [] [] Out of room [] Palliative care [] [] Receiving care in room [] Pre-surgical visit [] Trauma [] Long length of stay [] ICU visit [] Other: Relational/Emotional Strength [x] Patient feels connected with others/family/visitors/staff [] Distress [] Loneliness/isolation [] Abandonment Spirituality of Patient [x] Person of Adry [] Attends Congregation of their Adry [x] Believes in Prayer [] Reads Bible or Adventism materials [] There are Spiritual issues to be addressed Candle [employer] Machine 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 [x] Prayer [x] Active listening [x] Non-anxious presence [x] Spiritual/emotional support [] Crisis/trauma care [] Spiritual counseling [] Bereavement support [] Provided bereavement packet [] Provided Bible/devotional materials [] Provided toy/stuffed animal, coloring book to patient or family member [] Provided Communion [] Anointing/[place] [] Salvation [x] Completed spiritual assessment [] Other: Impact on Illness or Injury [] Angry [] Fearful [] Anxious [] Often cries [] Exhaustion [] Unable to work [] Unable to attend pentecostalism [] Unable to walk/stand [] Unable to read [] Unable to drive [] Unable to eat/drink [] Unable to sleep [] Unable to be with family [] Patient intubated [] Other: Summary Time spent with patient 5 min
--- NOTE | 2024-05-13 13:37 | P.PN_ITS ---
Subjective 2 Subjective: Patient was seen this morning, he is alert awake, following all commands, denies any fevers, no chills, no cough, he feels better after paracentesis Vitals/I&O/Wt Last Vital Signs Temp 98.0 F 05/13/24 11:00 Pulse 84 05/13/24 11:00 Resp 14 05/13/24 11:00 BP 99/63 05/13/24 11:00 Pulse Ox 98 05/13/24 11:00 O2 Del Method Room Air 05/13/24 11:00 05/12/24 05/13/24 05/13/24 22:59 06:59 14:59 Intake Total 1000 / 1000 199.822 / 3846.561 0802.667 / 1841.667 Output Total 200 / 200 200 / 400 650 / 650 Balance 800 / 800 -0.178 / 671.295 0685.667 / 1191.667 Weight last 48 hrs Weight 61.462 kg Weight 57.181 kg Weight 58.06 kg Physical Exam 2 Const: COMMON NORMALS: no acute distress and patient oriented x3 GENERAL APPEARANCE: frail appearing Resp: COMMON NORMALS: normal respiratory effort, No retractions, No use of accessory muscles and clear to auscultation bilaterally AUSCULTATION: clear to auscultation bilaterally Cardio: COMMON NORMALS: regular rate, regular rhythm, S1 normal heart sound present and S2 normal heart sound present RATE: regular rate RHYTHM: r egular rhythm HEART SOUNDS: S1 normal heart sound present and S2 normal heart sound present GI: COMMON NORMALS: Normal to inspection, nondistended, normoactive bowel sounds present and non-tender Extremity: COMMON NORMALS: no pedal edema Neuro: COMMON NORMALS: patient oriented x3 Psych: COMMON NORMALS: mental status grossly normal Data 05/13/24 06:01 05/13/24 03:21 Micro: Microbiology 05/12/24 18:06 Blood Culture - Preliminary Blood SPECIMEN COLLECTED 05/12/24 17:19 Blood Culture - Preliminary Blood SPECIMEN COLLECTED A&P Assessment and plan (1) Chronic hypotension: (2) Adrenal insufficiency: (3) Esophageal varices: (4) Alcoholic cirrhosis of liver: (5) Liver cirrhosis: Qualifiers: Ascites presence: with ascites Hepatic cirrhosis type: unspecified hepatic cirrhosis Qualified Code(s): K74.60 - Unspecified cirrhosis of liver; R18.8 - Other ascites (6) History of umbilical hernia repair: (7) Ascites due to alcoholic cirrhosis: (8) Hepatorenal syndrome: (9) Chronic kidney disease: (10) Acute hyponatremia: (11) Anemia: (12) Generalized weakness: Plan Decompensated liver cirrhosis MELD score 33 With hepatorenal syndrome Nephrology consulted Continue octreotide, midodrine, albumin Hold off on diuretics Concerns for spontaneous bacterial peritonitis Paracentesis done today 6 L were removed, follow cytology, Gram stain, culture Continue ceftriaxone 2 g daily Add Protonix Severe metabolic acidosis: Continue bicarb drip Monitor electrolytes Acute on chronic kidney disease Hepatorenal syndrome Chronic hyponatremia with hypotension De-escalate to home fludrocortisone, hydrocortisone History of GI bleed: Colonoscopy unremarkable history of portal hypertension History of esophageal varices -Monitor hemoglobin Patient is #1 candidate for liver transplant at [place] Will continue renal diet for now with fluid restriction DVT prophylaxis: SCDs PDMP PDMP Reviewed: Not Reviewed Attestations 2 Medical Necessity Statement*: Patient requires hospitalization for decompensated liver cirrhosis, hepatorenal syndrome, concern for spontaneous bacterial peritonitis Diagnoses Chronic hypotension I95.89 Adrenal insufficiency E27.40 Esophageal varices I85.00 Alcoholic cirrhosis of liver K70.30 Liver cirrhosis K74.60; R18.8 Ascites presence: with ascites Hepatic cirrhosis type: unspecified hepatic cirrhosis History of umbilical hernia repair Z98.890; Z87.19 Ascites due to alcoholic cirrhosis K70.31 Hepatorenal syndrome K76.7 Chronic kidney disease N18.9 Acute hyponatremia E87.1 Anemia D64.9 Generalized weakness R53.1
[2024-05-13 16:39] LABS: Anion Gap 21.2 (5-19); Blood Urea Nitrogen 65 mg/dL (6-20); Calcium 8.5 mg/dL (8.5-10.5); Carbon Dioxide 19 mmol/L (22-29); Chloride 90 mmol/L (98-107); Creatinine Clr Calc Pharmacy 18.6434; Glomerular Filtration Rate 14.3 mL/min (90-130); Glucose 131 mg/dL (65-115); Osmolality Calculated 284 mOsm/kg (285-295); Potassium 3.2 mmol/L (3.5-5.1); Sodium 127 mmol/L (136-145)
[2024-05-13] MEDS: ondansetron 2 mg/ML SDV 2 mL 4 MG IVP (16:39)
[2024-05-13] MEDS: cefTRIAXone 2,000 MG in sodium chloride 0.9% (plus) 50 ML 100 MG IV (17:01)
[2024-05-13] MEDS: sucralfate 1 gm Tablet PO (18:33)
[2024-05-13] MEDS: hydrocortisone 10 mg Tablet 5 MG PO (18:33)
[2024-05-13] MEDS: WIXELA INHALER 1 EACH INHALATION (18:34)
[2024-05-13] MEDS: trazodone 50 mg Tablet PO (20:15)
--- NOTE | 2024-05-13 23:34 | PM.TDS ---
Transfer Summary Providers Date of Admission: 05/12/24 18:51 Date of Discharge/Transfer: 05/13/24 Attending Provider at Admission: Kassandra Avelar MD Attending Provider at Transfer: Fortino Wagoner MD Primary Care Provider: Alia Sanchez MD Transfer Plans: Anticipated date of transfer: 05/13/24. Diagnoses at Discharge Discharge Diagnosis (1) Chronic hypotension: Status: Acute (2) Adrenal insufficiency: Status: Suspected (3) Esophageal varices: Status: Acute (4) Alcoholic cirrhosis of liver: Status: Acute (5) Liver cirrhosis: Status: Acute Qualifiers: Ascites presence: with ascites Hepatic cirrhosis type: unspecified hepatic cirrhosis Qualified Code(s): K74.60 - Unspecified cirrhosis of liver; R18.8 - Other ascites (6) History of umbilical hernia repair: Status: Acute (7) Ascites due to alcoholic cirrhosis: Status: Acute (8) Hepatorenal syndrome: Status: Acute (9) Chronic kidney disease: Status: Chronic (10) Acute hyponatremia: Status: Acute (11) Anemia: Status: Acute (12) Generalized weakness: Status: Acute Reason for Visit Reason for Visit sofia sent, increased creatinine and bilirubin Hospital Course Hospital Course 49 YO very pleasant male with history of alcohol-related liver cirrhosis, presented to the hospital for worsening of creatinine when BMP was done on Sunday, patient gets paracentesis every Sunday, this Sunday 6 L were removed, [facility] nurse asked him to go to the nearest ER because of worsening of kidney function, patient was not confused, no recent fever nausea vomiting or chest pain. He was extremely acidotic he was started on bicarb drip along octreotide midodrine and albumin and ceftriaxone 2 g daily for hepatorenal syndrome. MELD score 33. Nephrology was consulted who was planning to monitor urine output and correlate with creatinine and then decide on dialysis in next 48 hours, patient remained afebrile no leukocytosis however peritoneal fluid is showing 3674 peritoneal WBC, peritoneal RBC 2, peritoneal mononuclear WBC percentage 16%, polynuclear WBC percentage 83%, peritoneal polynuclear WBC #3, patient would meet criteria for SBP, blood cultures, peritoneal cultures negative to date please note cultures were obtained 24 hours ago. I received a phone call by Dr. Whatley, we talked in detail about indication for hospitalization, current scenario, labs, decision was made to transfer patient to [facility] for liver and kidney transplant , accepting physician Dr. Mcgregor. at the bedside. CBC: WBC 10: Hemoglobin 8.3, platelets 67,000 INR 1.2 PT 16.4 BMP: Sodium 127: Potassium 3.2: Chloride 90: Carbon dioxide 19: Anion gap 21: BUN 65: Creatinine 4.4(improved from 4.7) GFR 14 CRP 104 Lipase 151 Procalcitonin 6.4 Bilirubin 2.4 Urine output 1200 mL in 24 hours Afebrile Peritoneal and blood cultures negative to date Antibiotics on board ceftriaxone 2 g daily Patient received hydrocortisone and fludrocortisone for concern related to possible adrenal insufficiency as well Currently getting albumin octreotide and midodrine, bicarb Not on diuretics Patient is hemodynamically stable at the time of transfer, he is not showing signs of encephalopathy Blood pressure 103/59 mmHg pulse 81, breathing rate 14/min currently on room air afebrile Physical Exam Narrative: Patient is not showing sign of encephalopathy Awake and alert No abdominal tenderness Blood pressure stable Afebrile Sarcopenia Protein calorie malnourishment S1, S2 Currently on room air TS Data Studies Completed and Pending Pending at discharge Category Date Time Status Blood Culture Stat Lab 05/12/24 18:06 Results C Reactive Protein AM LABS Lab 05/14/24 04:00 Ordered C Reactive Protein AM LABS Lab 05/15/24 04:00 Ordered C Reactive Protein AM LABS Lab 05/16/24 04:00 Ordered Complete Blood Count w/Auto AM LABS Lab 05/14/24 04:00 Ordered Complete Blood Count w/Auto AM LABS Lab 05/15/24 04:00 Ordered Complete Blood Count w/Auto AM LABS Lab 05/16/24 04:00 Ordered Comprehensive Metabolic Panel AM LABS Lab 05/14/24 04:00 Ordered Comprehensive Metabolic Panel AM LABS Lab 05/15/24 04:00 Ordered Comprehensive Metabolic Panel AM LABS Lab 05/16/24 04:00 Ordered Magnesium AM LABS Lab 05/14/24 04:00 Ordered Magnesium AM LABS Lab 05/15/24 04:00 Ordered Magnesium AM LABS Lab 05/16/24 04:00 Ordered Phosphorus AM LABS Lab 05/14/24 04:00 Ordered Phosphorus AM LABS Lab 05/15/24 04:00 Ordered Phosphorus AM LABS Lab 05/16/24 04:00 Ordered Procalcitonin AM LABS Lab 05/14/24 04:00 Ordered Procalcitonin AM LABS Lab 05/15/24 04:00 Ordered Procalcitonin AM LABS Lab 05/16/24 04:00 Ordered Completed Studies During Hospitalization Category Date Time Status CT abdomen pelvis wo con [id number] Stat Cat Scan 05/12/24 17:31 Completed XR chest 1V portable [id number] Stat Exams 05/12/24 17:31 Completed Laboratory Last Values WBC 10.96 10^3/uL (3.29-11.43) 05/13/24 06:01 Corrected WBC Cancelled 05/13/24 03:21 RBC 2.32 10^6/uL (3.85-5.65) L 05/13/24 06:01 Hgb 8.30 g/dL (11.27-16.99) L 05/13/24 06:01 Hct 22.0 % (37-53) L D 05/13/24 06:01 MCV 94.8 fl (82-101) D 05/13/24 06:01 MCH 35.8 pg (27-33) H 05/13/24 06:01 MCHC 37.7 g/dL (30-55) D 05/13/24 06:01 RDW 20.4 % (12.1-15.1) H 05/13/24 06:01 Plt Count 67 10^3/cmm (157-399) L D 05/13/24 06:01 MPV 10.3 fL (7.4-10.4) 05/13/24 06:01 Gran % Cancelled 05/13/24 03:21 Neut % (Auto) 89.0 % 05/13/24 06:01 Lymph % (Auto) 2.1 % 05/13/24 06:01 [place] % (Auto) 7.6 % 05/13/24 06:01 Eos % (Auto) 0.0 % 05/13/24 06:01 Baso % (Auto) 0.2 % 05/13/24 06:01 Neut # (Auto) 9.76 10^3/uL (1.8-7.7) H 05/13/24 06:01 Lymph # (Auto) 0.2 10^3/uL (0.8-4.8) L 05/13/24 06:01 [place] # (Auto) 0.8 10^3/uL (0.2-0.9) 05/13/24 06:01 Eos # (Auto) 0.0 10^3/uL (0.0-0.8) 05/13/24 06:01 Baso # (Auto) 0.0 10^3/uL (0.0-0.1) 05/13/24 06:01 Absolute Gran (auto) Cancelled 05/13/24 03:21 Nucleated RBC % (auto) 0 % 05/13/24 06:01 Nucleated RBCs # 0.0 /100WBC 05/13/24 06:01 Pathologist Review No 05/13/24 06:01 Poikilocytosis 1+ H 05/13/24 06:01 Anisocytosis 1+ H 05/13/24 06:01 Target Cells Trace 05/13/24 06:01 Ovalocytes Trace 05/13/24 06:01 PT 16.40 SECONDS (12.1-14.9) H 05/12/24 17:19 INR 1.23 (0.8-1.2) H 05/12/24 17:19 Sodium 127 mmol/L (136-145) L 05/13/24 15:54 Potassium 3.2 mmol/L (3.5-5.1) L 05/13/24 15:54 Chloride 90 mmol/L (98-107) L 05/13/24 15:54 Carbon Dioxide 19 mmol/L (22-29) L 05/13/24 15:54 Anion Gap 21.2 (5-19) H 05/13/24 15:54 BUN 65 mg/dL (6-20) H 05/13/24 15:54 Creatinine 4.4 mg/dL (0.7-1.2) H 05/13/24 15:54 GFR Calculation 14.3 mL/min (90-130) L 05/13/24 15:54 Glucose 131 mg/dL (65-115) H 05/13/24 15:54 Calculated Osmolality 284 mOsm/kg (285-295) L 05/13/24 15:54 Lactic Acid 4.2 mmol/L (0.5-2.2) H* 05/12/24 16:36 Lactic Acid (Sepsis) 2.1 mmol/L (0.5-2.2) 05/12/24 22:47 Calcium 8.5 mg/dL (8.5-10.5) 05/13/24 15:54 Magnesium 2.1 mg/dL (1.7-2.3) 05/13/24 03:21 Total Bilirubin 2.4 mg/dL (0.15-1.2) H 05/13/24 03:21 AST 16 U/L (0-40) 05/13/24 03:21 ALT 20 U/L (0-41) 05/13/24 03:21 Alkaline Phosphatase 100 U/L (40-130) 05/13/24 03:21 Ammonia 69 umol/L (16-60) H 05/12/24 17:19 C-Reactive Protein 77.3 mg/L (0.0-4.9) H 05/13/24 03:21 Total Protein 5.4 g/dL (6.6-8.7) L 05/13/24 03:21 Albumin 3.7 g/dL (3.5-5.2) 05/13/24 03:21 Globulin 1.7 g/dL (1.3-4.6) 05/13/24 03:21 Lipase 151 U/L (13-60) H 05/12/24 16:36 Procalcitonin 6.46 ng/mL (0-0.5) H 05/12/24 22:47 Radiology Impressions Abdomen/Pelvis CT 05/12/24 17:31 IMPRESSION: 1. Diffuse liver cirrhosis. 2. Cholelithiasis. 3. Moderate amount of abdominopelvic ascites. 4. Persistent bilateral renal hyperdensity which may be related to retained contrast from prior CT examination. Please correlate clinically for developing contrast nephropathy. 5. Moderate-sized right inguinal hernia containing fat and fluid. 6. Other findings as detailed above. Chest X-Ray 05/12/24 17:31 IMPRESSION: Unremarkable chest radiograph Recent Clincial Data Last Vital Signs Temp 98.0 F 05/13/24 19:00 Pulse 81 05/13/24 19:00 Resp 11 L 05/13/24 19:00 BP 103/59 05/13/24 19:00 Pulse Ox 99 05/13/24 19:00 O2 Del Method Room Air 05/13/24 19:00 Vital Signs Temp Pulse Resp BP Pulse Ox O2 Del Method 05/13/24 19:00 98.0 F 81 11 L 103/59 99 Room Air Intake & Output/Weight 05/11/24 05/12/24 05/13/24 05/14/24 06:59 06:59 06:59 06:59 Intake Total 1199.822 / 8528.402 1605.156 / 3679.156 Output Total 400 / 400 800 / 800 Balance 799.822 / 985.615 9458.156 / 2879.156 Weight 61.462 kg Vitals Last Vital Signs Temp 98.0 F 05/13/24 19:00 Pulse 81 05/13/24 19:00 Resp 11 L 05/13/24 19:00 BP 103/59 05/13/24 19:00 Pulse Ox 99 05/13/24 19:00 O2 Del Method Room Air 05/13/24 19:00 TS Medications Medications Acetaminophen (Acetaminophen 500 Mg Tablet) 500 mg PO Q12H PRN PRN Reason: fever Albuterol/Ipratropium (Ipratropium-Albuterol 3 Ml Neb) 3 ml INHALATION Q6H PRN PRN Reason: SHORTNESS OF BREATH Fludrocortisone Acetate (Fludrocortisone 0.1 Mg Tablet) 0.1 mg PO DAILY [facility] Last Admin: 05/13/24 09:22 Dose: 0.1 mg Fludrocortisone Acetate (Fludrocortisone 0.1 Mg Tablet) 0.1 mg PO DAILY [facility] Hydrocortisone (Hydrocortisone 10 Mg Tablet) 5 mg PO BID [facility] Last Admin: 05/13/24 18:33 Dose: 5 mg Albumin Human (Albumin) 25 g in 100 mls @ 60 mls/hr IV Q8H [facility] Last Infusion: 05/13/24 21:07 Dose: Infused Octreotide Acetate 500 mcg/ (Sodium Chloride) 101 mls @ 10.1 mls/hr IV .Q10H [facility] Last Admin: 05/13/24 23:29 Dose: 50 mcg/hr, 10.1 mls/hr Sodium Bicarbonate 150 meq/ (Dextrose) 1,150 mls @ 100 mls/hr IV .[id number] [facility] Last Admin: 05/13/24 19:33 Dose: 100 mls/hr Ceftriaxone Sodium 2,000 mg/ (Sodium Chloride) 50 mls @ 100 mls/hr IV Q24H [facility]; Protocol Last Infusion: 05/13/24 21:07 Dose: Infused Lactulose (Lactulose Oral Liq 20 Gm/30 Ml Udc) 20 gm PO Q8H [facility] Last Admin: 05/13/24 15:49 Dose: 20 gm Metoclopramide HCl (Metoclopramide 5 Mg/Ml Sdv 2 Ml) 5 mg IVP Q4H PRN PRN Reason: NAUSEA AND VOMITING Midodrine (Midodrine 5 Mg Tablet) 10 mg PO TID [facility] Last Admin: 05/13/24 20:15 Dose: 10 mg Wixela Inhaler 1 each INHALATION Q12H [facility] Last Admin: 05/13/24 18:34 Dose: 1 each Ondansetron HCl (Ondansetron 2 Mg/Ml Sdv 2 Ml) 4 mg IVP Q6H PRN PRN Reason: NAUSEA AND VOMITING Last Admin: 05/13/24 16:39 Dose: 4 mg Pantoprazole Sodium (Pantoprazole 40 Mg Sdv) 40 mg IVP BID [facility] Last Admin: 05/13/24 18:36 Dose: 40 mg Prochlorperazine Edisylate (Prochlorperazine 10 Mg/2 Ml Inj) 5 mg IVP Q12H PRN PRN Reason: NAUSEA Last Admin: 05/12/24 20:41 Dose: 5 mg Rifaximin (Rifaximin 200 Mg Tablet) 600 mg PO BID [facility] Last Admin: 05/13/24 18:33 Dose: 600 mg Sucralfate (Sucralfate 1 Gm Tablet) 1 gm PO BID [facility] Last Admin: 05/13/24 18:33 Dose: 1 gm Tramadol HCl (Tramadol 50 Mg Tablet) 50 mg PO Q8H PRN PRN Reason: MODERATE PAIN Last Admin: 05/13/24 17:00 Dose: 50 mg Trazodone HCl (Trazodone 50 Mg Tablet) 50 mg PO BEDTIME [facility] Last Admin: 05/13/24 20:15 Dose: 50 mg Discontinued Medications Ceftriaxone Sodium (Ceftriaxone 2,000 Mg Sdv) 2,000 mg IVP ONCE ONE Stop: 05/12/24 17:46 Last Admin: 05/12/24 18:11 Dose: 2,000 mg Furosemide (Furosemide 10 Mg/Ml Sdv 2ml) 20 mg IVP Q24H [facility] Last Admin: 05/12/24 20:53 Dose: 20 mg Hydrocortisone Sodium Succinate (Hydrocortisone 100 Mg/2 Ml Sdv) 100 mg IVP Q12H [facility] Last Admin: 05/13/24 06:45 Dose: 100 mg Sodium Chloride (Sodium Chloride 0.9%) 1,000 mls @ 999 mls/hr IV .Q1H1M ONE Stop: 05/12/24 18:48 Last Infusion: 05/12/24 19:29 Dose: Infused Ceftriaxone Sodium 1,000 mg/ (Sodium Chloride) 50 mls @ 100 mls/hr IV DAILY [facility]; Protocol Midodrine (Midodrine 5 Mg Tablet) 10 mg PO TID ONE Stop: 05/12/24 18:44 Last Admin: 05/12/24 22:41 Dose: 10 mg Rifaximin (Rifaximin 200 Mg Tablet) 600 mg PO ONCE ONE Stop: 05/13/24 02:29 Last Admin: 05/13/24 03:12 Dose: 600 mg Tramadol HCl (Tramadol 50 Mg Tablet) 50 mg PO ONCE ONE Stop: 05/13/24 06:01 Last Admin: 05/13/24 07:24 Dose: Not Given Allergies No Known Allergies Allergy (Verified 05/12/24 16:14) Home Medications ondansetron HCl 4 mg tablet 4 mg PO Q8H PRN Nausea And Vomiting 30 days #30 tabs 01/02/24 [Rx Confirmed 05/13/24] albuterol sulfate 90 mcg/actuation aerosol inhaler (Ventolin HFA) 2 inh inhalation Q6H PRN shortness of breath or wheezing #6.7 grams 01/08/24 [Rx Confirmed 05/13/24] metoclopramide HCl 5 mg tablet 5 mg PO BID PRN Nausea And Vomiting 02/06/24 [History Confirmed 05/13/24] midodrine 5 mg tablet 10 mg PO TID 02/06/24 [History Confirmed 05/13/24] rifaximin 550 mg tablet 550 mg PO BID 02/06/24 [History Confirmed 05/13/24] lactulose 10 gram/15 mL oral solution (Constulose) 15 ml PO BID PRN Stomach Upset 02/29/24 [History Confirmed 05/13/24] pantoprazole 40 mg tablet,delayed release 40 mg PO Q12H 30 days #60 tabs 03/04/24 [Rx Confirmed 05/13/24] sucralfate 1 gram tablet 1 g PO BID 04/04/24 [History Confirmed 05/13/24] fluticasone 100 mcg-salmeterol 50 mcg/dose blistr powdr for inhalation (Wixela Inhub) 1 inh inhalation BID 05/05/24 [History Confirmed 05/13/24] hydrocodone 5 mg-acetaminophen 325 mg tablet 1 tab PO DAILY PRN Pain 05/05/24 [History Confirmed 05/13/24] trazodone 50 mg tablet 50 mg PO BEDTIME 05/05/24 [History Confirmed 05/13/24] hydrocortisone 5 mg tablet 5 mg PO BID #60 tabs 05/07/24 [Rx Confirmed 05/13/24] tramadol 50 mg tablet 50 mg PO Q8H PRN pain #10 tabs 05/07/24 [Rx Confirmed 05/13/24] Florinef 0.1 mg PO DAILY 05/13/24 [History Confirmed 05/13/24] Discharge Plan Discharge Patient Disposition: Home Condition: Stable Prescriptions: No Action ondansetron HCl 4 mg tablet 4 mg PO Q8H PRN (Reason: Nausea And Vomiting) 30 Days Qty: 30 0RF albuterol sulfate [Ventolin HFA] 90 mcg/actuation HFA aerosol inhaler 2 inh inhalation Q6H PRN (Reason: shortness of breath or wheezing) Qty: 6.7 0RF lactulose [Constulose] 10 gram/15 mL solution 15 ml PO BID PRN (Reason: Stomach Upset) pantoprazole 40 mg tablet,delayed release (DR/EC) 40 mg PO Q12H 30 Days Qty: 60 0RF sucralfate 1 gram tablet 1 g PO BID Florinef 0.1 mg PO DAILY Rx Instructions: Patient was told to take for only 30 days midodrine 5 mg tablet 10 mg PO TID metoclopramide HCl 5 mg tablet 5 mg PO BID PRN (Reason: Nausea And Vomiting) rifaximin 550 mg Tablet 550 mg PO BID trazodone 50 mg tablet 50 mg PO BEDTIME hydrocodone-acetaminophen 5-325 mg tablet 1 tab PO DAILY PRN (Reason: Pain) fluticasone propion-salmeterol [Wixela Inhub] 100-50 mcg/dose Blister With Device 1 inh INHALATION BID hydrocortisone 5 mg tablet 5 mg PO BID Qty: 60 0RF tramadol 50 mg tablet 50 mg PO Q8H PRN (Reason: pain) Qty: 10 0RF Discharge Orders: Transfer Out of Facility (Order); Ordered 05/13/24 Ordered By: Mayra Cook Referrals: Alia Sanchez MD [Primary Care Provider] - Patient Instructions: Opioid Safety Transfer Attestations Time Spent in Transfer Care: greater than 30 min Status at Transfer: Cognitive status at transfer: cognitively intact; Behavioral status at transfer: cooperative; Quality Metrics Clinical Quality Measures [ No reported AMI, CVA or VTE this stay] Coding Level of Care Code Acute Code for Chg Fwd Diagnoses Chronic hypotension I95.89 Adrenal insufficiency E27.40 Esophageal varices I85.00 Alcoholic cirrhosis of liver K70.30 Liver cirrhosis K74.60; R18.8 Ascites presence: with ascites Hepatic cirrhosis type: unspecified hepatic cirrhosis History of umbilical hernia repair Z98.890; Z87.19 Ascites due to alcoholic cirrhosis K70.31 Hepatorenal syndrome K76.7 Chronic kidney disease N18.9 Acute hyponatremia E87.1 Anemia D64.9 Generalized weakness R53.1
== END 2024-05-13 23:49 | disposition short-term general hospital (02) | DRG 442 ==
LOC: ER 16:55 → CSU 18:52
PROVIDERS: Emergency Medicine; Hospitalist; Internal Medicine; Admitting Provider Internal Medicine; Emergency Provider Family Medicine; PCP Family Medicine; Visit Provider Family Medicine
DX: K76.7 Hepatorenal syndrome (principal); E27.40 Unspecified adrenocortical insufficiency; I85.10 Secondary esophageal varices without bleeding; E87.1 Hypo-osmolality and hyponatremia; E46 Unspecified protein-calorie malnutrition; N17.9 Acute kidney failure, unspecified; E87.20 Acidosis, unspecified; I95.9 Hypotension, unspecified; F10.10 Alcohol abuse, uncomplicated; K70.31 Alcoholic cirrhosis of liver with ascites; N18.9 Chronic kidney disease, unspecified; D64.9 Anemia, unspecified; Z79.899 Other long term (current) drug therapy; D69.6 Thrombocytopenia, unspecified; Z87.891 Personal history of nicotine dependence; Z68.20 Body mass index [BMI] 20.0-20.9, adult; M21.371 Foot drop, right foot
CPT/HCPCS: 36415; 71045; 74176; 80048; 80053; 82140; 83605; 83690; 83735; 84145; 85025; 85610; 86140; 87040; J0696; J0780; J1720; J1940; J2354; J2405; J2470; J7030; J7070; J8499; J9999; P9046; Q3014

== ENCOUNTER 2024-06-16 08:42 | Outpatient (CLI) | payer OTHER, SELFPAY ==
[2024-06-16 09:38] LABS: Basophils # 0.1 10^3/uL (0.0-0.1); Basophils % 1.1 %; Eosinophils # 0.2 10^3/uL (0.0-0.8); Eosinophils % 2.9 %; Hematocrit 28.8 % (37-53); Lymphocytes # 0.7 10^3/uL (0.8-4.8); Lymphocytes % 8.8 %; Mean Corpuscular HGB Conc 31.3 g/dL (30-55); Mean Corpuscular Hemoglobin 30.8 pg (27-33); Mean Corpuscular Volume 98.6 fl (82-101); Monocytes # 1.4 10^3/uL (0.2-0.9); Monocytes % 17.5 %; Neutrophils # 5.34 10^3/uL (1.8-7.7); Neutrophils % 68.2 %; Nucleated Red Blood Cells % 0 %; Platelet Count 191 10^3/cmm (157-399); Red Blood Count 2.92 10^6/uL (3.85-5.65); Red Cell Distribution Width 19.9 % (12.1-15.1); White Blood Count 7.84 10^3/uL (3.29-11.43)
[2024-06-16 10:01] LABS: Alanine Aminotransferase 9 U/L (0-41); Albumin Level 3.6 g/dL (3.5-5.2); Alkaline Phosphatase 92 U/L (40-130); Anion Gap 17.5 (5-19); Aspartate Amino Transferase 6 U/L (0-40); Blood Urea Nitrogen 25 mg/dL (6-20); Calcium 8.9 mg/dL (8.5-10.5); Carbon Dioxide 21 mmol/L (22-29); Chloride 106 mmol/L (98-107); Chol HDL Ratio 4.46 mg/dL (1.0-5.00); Cholesterol 214 mg/dL (0-200); Gamma Glutamyl Transferase 151 U/L (8-61); Globulin 2.5 g/dL (1.3-4.6); Glomerular Filtration Rate 70.9 mL/min (90-130); Glucose 91 mg/dL (65-115); HDL Cholesterol 48 mg/dL (60-100); LDL Cholesterol Calculated 149 mg/dL (50-129); Magnesium 1.4 mg/dL (1.7-2.3); Osmolality Calculated 294 mOsm/kg (285-295); Potassium 4.5 mmol/L (3.5-5.1); Sodium 140 mmol/L (136-145); Total Bilirubin 0.5 mg/dL (0.15-1.2); Total Protein 6.1 g/dL (6.6-8.7); Triglycerides 85 mg/dL (0-150)
[2024-06-17 15:54] LABS: Tacrolimus, Highly Sensitive 6.3 mcg/L
== END 2024-06-16 08:43 | disposition home or self-care (01) ==
LOC: LAB 09:09
PROVIDERS: PCP Family Medicine; Visit Provider Hospitalist
DX: Z94.0 Kidney transplant status (principal); E78.5 Hyperlipidemia, unspecified
CPT/HCPCS: 36415; 80053; 80061; 80197; 82977; 83735; 84100; 85025; 87798

== ENCOUNTER 2024-06-19 08:33 | Outpatient (CLI) | payer OTHER, SELFPAY ==
[2024-06-19 09:33] LABS: Basophils # 0.1 10^3/uL (0.0-0.1); Basophils % 0.8 %; Eosinophils # 0.3 10^3/uL (0.0-0.8); Eosinophils % 2.9 %; Hematocrit 27.9 % (37-53); Lymphocytes # 0.9 10^3/uL (0.8-4.8); Lymphocytes % 10.7 %; Mean Corpuscular HGB Conc 32.3 g/dL (30-55); Mean Corpuscular Volume 99.3 fl (82-101); Mean Platelet Volume 8.5 fL (7.4-10.4); Monocytes # 1.5 10^3/uL (0.2-0.9); Monocytes % 16.7 %; Neutrophils # 5.88 10^3/uL (1.8-7.7); Neutrophils % 67.4 %; Nucleated Red Blood Cells % 0 %; Platelet Count 170 10^3/cmm (157-399); Red Blood Count 2.81 10^6/uL (3.85-5.65); Red Cell Distribution Width 19.7 % (12.1-15.1); White Blood Count 8.72 10^3/uL (3.29-11.43)
[2024-06-19 09:58] LABS: Alanine Aminotransferase < 5 U/L (0-41); Albumin Level 3.9 g/dL (3.5-5.2); Alkaline Phosphatase 90 U/L (40-130); Anion Gap 17.5 (5-19); Aspartate Amino Transferase 6 U/L (0-40); Blood Urea Nitrogen 28 mg/dL (6-20); Calcium 8.9 mg/dL (8.5-10.5); Carbon Dioxide 22 mmol/L (22-29); Chloride 106 mmol/L (98-107); Chol HDL Ratio 3.74 mg/dL (1.0-5.00); Cholesterol 213 mg/dL (0-200); Gamma Glutamyl Transferase 139 U/L (8-61); Globulin 2.4 g/dL (1.3-4.6); Glomerular Filtration Rate 70.9 mL/min (90-130); Glucose 76 mg/dL (65-115); HDL Cholesterol 57 mg/dL (60-100); LDL Cholesterol Calculated 145 mg/dL (50-129); LDL HDL Ratio 2.54 RATIO (0.00-3.22); Magnesium 1.5 mg/dL (1.7-2.3); Osmolality Calculated 296 mOsm/kg (285-295); Phosphorus 3.8 mg/dL (2.5-4.5); Potassium 4.5 mmol/L (3.5-5.1); Sodium 141 mmol/L (136-145); Total Bilirubin 0.5 mg/dL (0.15-1.2); Total Protein 6.3 g/dL (6.6-8.7); Triglycerides 55 mg/dL (0-150)
[2024-06-20 14:50] LABS: Tacrolimus, Highly Sensitive 4.8 mcg/L
== END 2024-06-19 08:34 | disposition home or self-care (01) ==
LOC: LAB 08:38
PROVIDERS: PCP Family Medicine
DX: E78.5 Hyperlipidemia, unspecified (principal); Z94.0 Kidney transplant status; Z94.4 Liver transplant status; Z79.899 Other long term (current) drug therapy; E61.2 Magnesium deficiency
CPT/HCPCS: 36415; 80053; 80061; 80197; 82977; 83735; 84100; 85025; 87798

== ENCOUNTER 2024-06-23 08:59 | Outpatient (CLI) | payer OTHER, SELFPAY ==
[2024-06-23 09:44] LABS: Basophils # 0.1 10^3/uL (0.0-0.1); Basophils % 0.8 %; Eosinophils # 0.2 10^3/uL (0.0-0.8); Hematocrit 27.2 % (37-53); Lymphocytes # 0.8 10^3/uL (0.8-4.8); Mean Corpuscular Hemoglobin 31.6 pg (27-33); Mean Corpuscular Volume 98.9 fl (82-101); Mean Platelet Volume 8.1 fL (7.4-10.4); Monocytes # 1.1 10^3/uL (0.2-0.9); Monocytes % 13.7 %; Neutrophils % 73.1 %; Nucleated Red Blood Cells % 0 %; Platelet Count 153 10^3/cmm (157-399); Red Blood Count 2.75 10^6/uL (3.85-5.65); Red Cell Distribution Width 19.9 % (12.1-15.1); White Blood Count 8.35 10^3/uL (3.29-11.43)
[2024-06-23 10:13] LABS: Alanine Aminotransferase 7 U/L (0-41); Albumin Level 3.7 g/dL (3.5-5.2); Alkaline Phosphatase 76 U/L (40-130); Anion Gap 18.6 (5-19); Aspartate Amino Transferase 7 U/L (0-40); Blood Urea Nitrogen 33 mg/dL (6-20); Calcium 8.8 mg/dL (8.5-10.5); Carbon Dioxide 22 mmol/L (22-29); Chloride 106 mmol/L (98-107); Chol HDL Ratio 3.96 mg/dL (1.0-5.00); Cholesterol 202 mg/dL (0-200); Gamma Glutamyl Transferase 109 U/L (8-61); Globulin 2.3 g/dL (1.3-4.6); Glomerular Filtration Rate 64.1 mL/min (90-130); Glucose 95 mg/dL (65-115); HDL Cholesterol 51 mg/dL (60-100); LDL Cholesterol Calculated 136 mg/dL (50-129); LDL HDL Ratio 2.67 RATIO (0.00-3.22); Magnesium 1.6 mg/dL (1.7-2.3); Osmolality Calculated 301 mOsm/kg (285-295); Potassium 4.6 mmol/L (3.5-5.1); Sodium 142 mmol/L (136-145); Total Bilirubin 0.4 mg/dL (0.15-1.2); Triglycerides 76 mg/dL (0-150)
[2024-06-24 12:50] LABS: Tacrolimus, Highly Sensitive 5.6 mcg/L
== END 2024-06-23 09:00 | disposition home or self-care (01) ==
PROVIDERS: PCP Family Medicine
DX: Z94.0 Kidney transplant status (principal); Z94.4 Liver transplant status; E78.5 Hyperlipidemia, unspecified
CPT/HCPCS: 36415; 80053; 80061; 80197; 82977; 83735; 84100; 85025; 87798

== ENCOUNTER 2024-06-26 08:35 | Outpatient (CLI) | payer OTHER, SELFPAY ==
[2024-06-26 09:20] LABS: Basophils # 0.1 10^3/uL (0.0-0.1); Basophils % 0.8 %; Eosinophils # 0.2 10^3/uL (0.0-0.8); Eosinophils % 1.7 %; Lymphocytes % 11.5 %; Mean Corpuscular HGB Conc 32.1 g/dL (30-55); Mean Corpuscular Hemoglobin 31.4 pg (27-33); Mean Platelet Volume 8.3 fL (7.4-10.4); Monocytes # 1.1 10^3/uL (0.2-0.9); Monocytes % 12.4 %; Neutrophils # 6.36 10^3/uL (1.8-7.7); Neutrophils % 72.6 %; Nucleated Red Blood Cells % 0 %; Platelet Count 184 10^3/cmm (157-399); Red Blood Count 2.96 10^6/uL (3.85-5.65); Red Cell Distribution Width 19.7 % (12.1-15.1); White Blood Count 8.77 10^3/uL (3.29-11.43)
[2024-06-26 09:20] LABS: Bilirubin Urine Negative (Negative); Blood Urine Negative (Negative); Glucose Urine UA Negative (Normal); Ketones Urine Negative (Negative); Leukocyte Esterase Urine Negative (Negative); Nitrate Urine Negative (Negative); Protein Urine Negative (Negative); Specific Gravity, Urine 1.013 (1.005-1.030); Urine Appearance Clear (CLEAR); Urine Color Yellow (Yellow); Urobilinogen Urine 0.2 mg/dL (Negative); pH Urine 5.5 (5-7)
[2024-06-26 09:25] LABS: Bacteria Urine None Seen /hpf; Hyaline Casts Urine 0-4 /lpf; RBC Urine 0-2 /hpf (0-2); Squamous Epithelial Cell Urine 0-5 /hpf (0-5); WBC Urine 0-5 /hpf (0-5)
[2024-06-26 09:41] LABS: Alanine Aminotransferase 8 U/L (0-41); Alkaline Phosphatase 82 U/L (40-130); Anion Gap 18.4 (5-19); Aspartate Amino Transferase 8 U/L (0-40); Blood Urea Nitrogen 29 mg/dL (6-20); Carbon Dioxide 22 mmol/L (22-29); Chloride 106 mmol/L (98-107); Chol HDL Ratio 3.82 mg/dL (1.0-5.00); Cholesterol 229 mg/dL (0-200); Gamma Glutamyl Transferase 102 U/L (8-61); Globulin 2.5 g/dL (1.3-4.6); Glomerular Filtration Rate 70.9 mL/min (90-130); Glucose 80 mg/dL (65-115); HDL Cholesterol 60 mg/dL (60-100); LDL Cholesterol Calculated 154 mg/dL (50-129); LDL HDL Ratio 2.57 RATIO (0.00-3.22); Magnesium 1.7 mg/dL (1.7-2.3); Osmolality Calculated 299 mOsm/kg (285-295); Potassium 4.4 mmol/L (3.5-5.1); Sodium 142 mmol/L (136-145); Total Bilirubin 0.5 mg/dL (0.15-1.2); Total Protein 6.5 g/dL (6.6-8.7); Triglycerides 73 mg/dL (0-150)
[2024-06-27 13:51] LABS: Tacrolimus, Highly Sensitive 5.5 mcg/L
== END 2024-06-26 08:36 | disposition home or self-care (01) ==
LOC: LAB 08:38
PROVIDERS: PCP Family Medicine; Visit Provider Internal Medicine Sleep Medicine
DX: Z94.0 Kidney transplant status (principal); Z94.4 Liver transplant status; E78.5 Hyperlipidemia, unspecified; E61.2 Magnesium deficiency; Z79.899 Other long term (current) drug therapy
CPT/HCPCS: 36415; 80053; 80061; 80197; 81001; 82977; 83735; 84100; 85025; 87798

== ENCOUNTER 2024-06-30 08:54 | Outpatient (CLI) | payer OTHER, SELFPAY ==
[2024-06-30 10:45] LABS: Basophils # 0.1 10^3/uL (0.0-0.1); Basophils % 1.5 %; Eosinophils # 0.2 10^3/uL (0.0-0.8); Eosinophils % 2.9 %; Hematocrit 40.2 % (37-53); Lymphocytes # 0.7 10^3/uL (0.8-4.8); Lymphocytes % 12.6 %; Mean Corpuscular HGB Conc 33.8 g/dL (30-55); Mean Corpuscular Hemoglobin 31.3 pg (27-33); Mean Corpuscular Volume 92.6 fl (82-101); Mean Platelet Volume 8.8 fL (7.4-10.4); Monocytes # 0.7 10^3/uL (0.2-0.9); Neutrophils # 3.53 10^3/uL (1.8-7.7); Neutrophils % 67.7 %; Nucleated Red Blood Cells % 0 %; Platelet Count 139 10^3/cmm (157-399); Red Blood Count 4.34 10^6/uL (3.85-5.65); White Blood Count 5.22 10^3/uL (3.29-11.43)
[2024-06-30 10:57] LABS: Alanine Aminotransferase 10 U/L (0-41); Albumin Level 3.9 g/dL (3.5-5.2); Alkaline Phosphatase 70 U/L (40-130); Aspartate Amino Transferase 10 U/L (0-40); Blood Urea Nitrogen 32 mg/dL (6-20); Calcium 8.9 mg/dL (8.5-10.5); Carbon Dioxide 20 mmol/L (22-29); Chloride 107 mmol/L (98-107); Gamma Glutamyl Transferase 77 U/L (8-61); Globulin 2.3 g/dL (1.3-4.6); Glomerular Filtration Rate 70.9 mL/min (90-130); Glucose 82 mg/dL (65-115); Magnesium 1.5 mg/dL (1.7-2.3); Osmolality Calculated 298 mOsm/kg (285-295); Phosphorus 3.9 mg/dL (2.5-4.5); Sodium 141 mmol/L (136-145); Total Bilirubin 0.4 mg/dL (0.15-1.2); Total Protein 6.2 g/dL (6.6-8.7)
[2024-06-30 11:08] LABS: Anion Gap 19.2 (5-19); Potassium 5.2 mmol/L (3.5-5.1)
[2024-06-30 11:21] LABS: Slide Review Slide Review Perform
[2024-07-01 17:00] LABS: Tacrolimus, Highly Sensitive 6.3 mcg/L
== END 2024-06-30 08:55 | disposition home or self-care (01) ==
PROVIDERS: PCP Family Medicine; Visit Provider Internal Medicine Nephrology
DX: Z94.0 Kidney transplant status (principal); Z79.899 Other long term (current) drug therapy; E78.5 Hyperlipidemia, unspecified; Z94.4 Liver transplant status; E61.2 Magnesium deficiency
CPT/HCPCS: 36415; 80053; 80197; 82977; 83735; 84100; 85025

== ENCOUNTER 2024-07-07 08:39 | Outpatient (CLI) | payer OTHER, SELFPAY ==
[2024-07-07 10:26] LABS: Basophils # 0.1 10^3/uL (0.0-0.1); Basophils % 0.8 %; Eosinophils # 0.2 10^3/uL (0.0-0.8); Eosinophils % 2.8 %; Hematocrit 30.8 % (37-53); Lymphocytes # 0.8 10^3/uL (0.8-4.8); Lymphocytes % 13.7 %; Mean Corpuscular HGB Conc 31.8 g/dL (30-55); Mean Corpuscular Hemoglobin 31.7 pg (27-33); Mean Corpuscular Volume 99.7 fl (82-101); Mean Platelet Volume 8.6 fL (7.4-10.4); Monocytes # 0.8 10^3/uL (0.2-0.9); Monocytes % 12.5 %; Neutrophils # 4.22 10^3/uL (1.8-7.7); Neutrophils % 69.4 %; Nucleated Red Blood Cells % 0 %; Platelet Count 168 10^3/cmm (157-399); Red Blood Count 3.09 10^6/uL (3.85-5.65); White Blood Count 6.08 10^3/uL (3.29-11.43)
[2024-07-07 10:43] LABS: Alanine Aminotransferase 15 U/L (0-41); Alkaline Phosphatase 64 U/L (40-130); Anion Gap 16.9 (5-19); Aspartate Amino Transferase 10 U/L (0-40); Blood Urea Nitrogen 33 mg/dL (6-20); Carbon Dioxide 20 mmol/L (22-29); Chloride 109 mmol/L (98-107); Chol HDL Ratio 3.08 mg/dL (1.0-5.00); Cholesterol 200 mg/dL (0-200); Gamma Glutamyl Transferase 60 U/L (8-61); Globulin 2.3 g/dL (1.3-4.6); Glomerular Filtration Rate 70.9 mL/min (90-130); Glucose 83 mg/dL (65-115); HDL Cholesterol 65 mg/dL (60-100); LDL Cholesterol Calculated 124 mg/dL (50-129); LDL HDL Ratio 1.91 RATIO (0.00-3.22); Magnesium 1.4 mg/dL (1.7-2.3); Osmolality Calculated 298 mOsm/kg (285-295); Phosphorus 4.3 mg/dL (2.5-4.5); Potassium 4.9 mmol/L (3.5-5.1); Sodium 141 mmol/L (136-145); Total Bilirubin 0.4 mg/dL (0.15-1.2); Total Protein 6.3 g/dL (6.6-8.7); Triglycerides 53 mg/dL (0-150)
[2024-07-08 15:40] LABS: Tacrolimus, Highly Sensitive 6.3 mcg/L
== END 2024-07-07 08:40 | disposition home or self-care (01) ==
LOC: LAB 08:41
PROVIDERS: PCP Family Medicine; Visit Provider Internal Medicine Sleep Medicine
DX: Z94.0 Kidney transplant status (principal); Z94.4 Liver transplant status; E78.5 Hyperlipidemia, unspecified; Z79.899 Other long term (current) drug therapy; E61.2 Magnesium deficiency
CPT/HCPCS: 80053; 80061; 80197; 82977; 83735; 84100; 85025; 87798

== ENCOUNTER 2024-07-15 08:52 | Outpatient (CLI) | payer OTHER, SELFPAY ==
[2024-07-15 10:11] LABS: Basophils # 0.1 10^3/uL (0.0-0.1); Eosinophils # 0.2 10^3/uL (0.0-0.8); Hematocrit 31.5 % (37-53); Lymphocytes # 0.9 10^3/uL (0.8-4.8); Lymphocytes % 17.9 %; Mean Corpuscular HGB Conc 31.4 g/dL (30-55); Mean Corpuscular Hemoglobin 31.6 pg (27-33); Mean Corpuscular Volume 100.6 fl (82-101); Mean Platelet Volume 8.7 fL (7.4-10.4); Monocytes # 0.8 10^3/uL (0.2-0.9); Monocytes % 15.9 %; Neutrophils # 3.05 10^3/uL (1.8-7.7); Neutrophils % 61.6 %; Nucleated Red Blood Cells % 0 %; Platelet Count 155 10^3/cmm (157-399); Red Blood Count 3.13 10^6/uL (3.85-5.65); Red Cell Distribution Width 19.6 % (12.1-15.1); White Blood Count 4.96 10^3/uL (3.29-11.43)
[2024-07-15 10:42] LABS: Alanine Aminotransferase 16 U/L (0-41); Albumin Level 4.4 g/dL (3.5-5.2); Alkaline Phosphatase 69 U/L (40-130); Anion Gap 19.1 (5-19); Aspartate Amino Transferase 13 U/L (0-40); Blood Urea Nitrogen 40 mg/dL (6-20); Calcium 9.3 mg/dL (8.5-10.5); Carbon Dioxide 20 mmol/L (22-29); Chloride 107 mmol/L (98-107); Chol HDL Ratio 2.77 mg/dL (1.0-5.00); Cholesterol 208 mg/dL (0-200); Gamma Glutamyl Transferase 46 U/L (8-61); Globulin 2.5 g/dL (1.3-4.6); Glomerular Filtration Rate 53.6 mL/min (90-130); Glucose 82 mg/dL (65-115); HDL Cholesterol 75 mg/dL (60-100); LDL Cholesterol Calculated 124 mg/dL (50-129); LDL HDL Ratio 1.65 RATIO (0.00-3.22); Magnesium 1.7 mg/dL (1.7-2.3); Osmolality Calculated 301 mOsm/kg (285-295); Phosphorus 4.8 mg/dL (2.5-4.5); Potassium 5.1 mmol/L (3.5-5.1); Sodium 141 mmol/L (136-145); Total Bilirubin 0.3 mg/dL (0.15-1.2); Total Protein 6.9 g/dL (6.6-8.7); Triglycerides 47 mg/dL (0-150)
[2024-07-16 15:05] LABS: Tacrolimus, Highly Sensitive 5.1 mcg/L
== END 2024-07-15 08:53 | disposition home or self-care (01) ==
LOC: LAB 08:56
PROVIDERS: PCP Family Medicine; Visit Provider Internal Medicine Nephrology
DX: Z79.899 Other long term (current) drug therapy (principal); Z94.0 Kidney transplant status; Z94.4 Liver transplant status; E61.2 Magnesium deficiency; E78.5 Hyperlipidemia, unspecified
CPT/HCPCS: 36415; 80053; 80061; 80197; 82977; 83735; 84100; 85025; 87798

== ENCOUNTER 2024-07-21 08:42 | Outpatient (CLI) | payer OTHER, SELFPAY ==
[2024-07-21 09:30] LABS: Basophils # 0.1 10^3/uL (0.0-0.1); Basophils % 1.2 %; Eosinophils # 0.2 10^3/uL (0.0-0.8); Eosinophils % 3.2 %; Hematocrit 27.1 % (37-53); Lymphocytes # 1.1 10^3/uL (0.8-4.8); Lymphocytes % 19.3 %; Mean Corpuscular HGB Conc 31.7 g/dL (30-55); Mean Corpuscular Hemoglobin 31.6 pg (27-33); Mean Corpuscular Volume 99.6 fl (82-101); Mean Platelet Volume 9.1 fL (7.4-10.4); Monocytes % 16.7 %; Neutrophils % 59.1 %; Nucleated Red Blood Cells % 0 %; Platelet Count 146 10^3/cmm (157-399); Red Blood Count 2.72 10^6/uL (3.85-5.65); Red Cell Distribution Width 19.1 % (12.1-15.1); White Blood Count 5.92 10^3/uL (3.29-11.43)
[2024-07-21 09:58] LABS: Alanine Aminotransferase 20 U/L (0-41); Albumin Level 4.4 g/dL (3.5-5.2); Alkaline Phosphatase 62 U/L (40-130); Blood Urea Nitrogen 39 mg/dL (6-20); Calcium 8.9 mg/dL (8.5-10.5); Carbon Dioxide 21 mmol/L (22-29); Chloride 104 mmol/L (98-107); Cholesterol 197 mg/dL (0-200); Gamma Glutamyl Transferase 34 U/L (8-61); Globulin 2.3 g/dL (1.3-4.6); Glomerular Filtration Rate 53.6 mL/min (90-130); Glucose 76 mg/dL (65-115); HDL Cholesterol 73 mg/dL (60-100); LDL Cholesterol Calculated 113 mg/dL (50-129); LDL HDL Ratio 1.55 RATIO (0.00-3.22); Magnesium 1.7 mg/dL (1.7-2.3); Osmolality Calculated 290 mOsm/kg (285-295); Phosphorus 4.9 mg/dL (2.5-4.5); Sodium 136 mmol/L (136-145); Total Bilirubin 0.3 mg/dL (0.15-1.2); Total Protein 6.7 g/dL (6.6-8.7); Triglycerides 57 mg/dL (0-150)
[2024-07-21 10:00] LABS: Aspartate Amino Transferase 17 U/L (0-40)
== END 2024-07-21 08:43 | disposition home or self-care (01) ==
LOC: LAB 08:46
PROVIDERS: PCP Family Medicine; Visit Provider Internal Medicine Nephrology
DX: Z79.899 Other long term (current) drug therapy (principal); Z94.0 Kidney transplant status; Z94.4 Liver transplant status; E61.2 Magnesium deficiency; E78.5 Hyperlipidemia, unspecified
CPT/HCPCS: 36415; 80053; 80061; 80197; 82977; 83735; 84100; 85025; 87798

== ENCOUNTER 2024-07-23 13:30 | Outpatient (CLI) | payer OTHER, SELFPAY ==
--- NOTE | 2024-07-23 13:34 | USCV_ITS ---
Chaes Rivero Age: 49 Gender: M : 1975 Exam Date: 07/23/2024 13:40 Ordering Phys: Alem Liriano DNP Technologist: MARLENE [place] [facility] [place]: edema in right calf HISTORY: Right lower extremity edema. PROCEDURES: Venous duplex imaging was performed in only the right lower extremity. The following venous structures were evaluated: common femoral vein, profunda vein, proximal portion of the greater saphenous vein, superficial femoral vein, and the popliteal vein. In addition, the posterior tibial and peroneal trunk were evaluated. FINDINGS: No evidence of DVT seen in any vessel visualized at this time. CONCLUSIONS No evidence of right lower extremity DVT. Reagan Guillen MD (Electronically Signed) Final Date: 23 July 2024 15:24 S
== END 2024-07-23 13:31 | disposition home or self-care (01) ==
PROVIDERS: PCP Family Medicine; Visit Provider Nurse Practitioner Adult Health
DX: R60.0 Localized edema (principal)
CPT/HCPCS: 93971

== ENCOUNTER 2024-07-28 08:20 | Outpatient (CLI) | payer OTHER, SELFPAY ==
[2024-07-28 09:13] LABS: Basophils # 0.1 10^3/uL (0.0-0.1); Basophils % 0.9 %; Eosinophils # 0.2 10^3/uL (0.0-0.8); Eosinophils % 2.9 %; Hematocrit 30.2 % (37-53); Lymphocytes # 0.9 10^3/uL (0.8-4.8); Lymphocytes % 15.7 %; Mean Corpuscular HGB Conc 31.1 g/dL (30-55); Mean Corpuscular Hemoglobin 31.3 pg (27-33); Mean Corpuscular Volume 100.7 fl (82-101); Mean Platelet Volume 9.7 fL (7.4-10.4); Monocytes # 0.9 10^3/uL (0.2-0.9); Monocytes % 16.6 %; Neutrophils % 63.4 %; Nucleated Red Blood Cells % 0 %; Platelet Count 146 10^3/cmm (157-399); Red Cell Distribution Width 18.2 % (12.1-15.1); White Blood Count 5.53 10^3/uL (3.29-11.43)
[2024-07-28 09:31] LABS: Alanine Aminotransferase 17 U/L (0-41); Albumin Level 4.1 g/dL (3.5-5.2); Alkaline Phosphatase 55 U/L (40-130); Anion Gap 17.7 (5-19); Aspartate Amino Transferase 11 U/L (0-40); Blood Urea Nitrogen 38 mg/dL (6-20); Calcium 8.7 mg/dL (8.5-10.5); Carbon Dioxide 21 mmol/L (22-29); Chloride 108 mmol/L (98-107); Chol HDL Ratio 2.41 mg/dL (1.0-5.00); Cholesterol 176 mg/dL (0-200); Gamma Glutamyl Transferase 26 U/L (8-61); Globulin 2.2 g/dL (1.3-4.6); Glomerular Filtration Rate 53.6 mL/min (90-130); Glucose 86 mg/dL (65-115); HDL Cholesterol 73 mg/dL (60-100); LDL Cholesterol Calculated 95 mg/dL (50-129); Magnesium 1.6 mg/dL (1.7-2.3); Osmolality Calculated 302 mOsm/kg (285-295); Phosphorus 4.4 mg/dL (2.5-4.5); Potassium 4.7 mmol/L (3.5-5.1); Sodium 142 mmol/L (136-145); Total Bilirubin 0.3 mg/dL (0.15-1.2); Total Protein 6.3 g/dL (6.6-8.7); Triglycerides 41 mg/dL (0-150)
[2024-07-29 19:00] LABS: Tacrolimus, Highly Sensitive 4.6 mcg/L
[2024-07-30 14:25] LABS: BK VIRUS DNA, QN PCR Not Detected (Not Detected); BK VIRUS DNA, QN RT PCR Not Detected Log IU/mL (Not Detected)
== END 2024-07-28 08:21 | disposition home or self-care (01) ==
PROVIDERS: PCP Family Medicine; Visit Provider Internal Medicine Nephrology
DX: Z94.0 Kidney transplant status (principal); Z79.899 Other long term (current) drug therapy; Z94.4 Liver transplant status; E61.2 Magnesium deficiency; E78.5 Hyperlipidemia, unspecified
CPT/HCPCS: 80053; 80061; 80197; 82977; 83735; 84100; 85025; 87798

== ENCOUNTER 2024-08-04 08:07 | Outpatient (CLI) | payer OTHER, SELFPAY ==
[2024-08-04 09:30] LABS: Basophils % 0.6 %; Eosinophils # 0.1 10^3/uL (0.0-0.8); Eosinophils % 2.8 %; Hematocrit 29.4 % (37-53); Lymphocytes # 0.8 10^3/uL (0.8-4.8); Lymphocytes % 16.2 %; Mean Corpuscular HGB Conc 31.6 g/dL (30-55); Mean Corpuscular Hemoglobin 32.1 pg (27-33); Mean Corpuscular Volume 101.4 fl (82-101); Mean Platelet Volume 8.9 fL (7.4-10.4); Monocytes # 0.8 10^3/uL (0.2-0.9); Monocytes % 15.4 %; Neutrophils # 3.18 10^3/uL (1.8-7.7); Neutrophils % 64.4 %; Nucleated Red Blood Cells % 0 %; Platelet Count 137 10^3/cmm (157-399); Red Cell Distribution Width 17.7 % (12.1-15.1); White Blood Count 4.94 10^3/uL (3.29-11.43)
[2024-08-04 10:16] LABS: Alanine Aminotransferase 17 U/L (0-41); Albumin Level 4.1 g/dL (3.5-5.2); Alkaline Phosphatase 55 U/L (40-130); Anion Gap 16.8 (5-19); Aspartate Amino Transferase 13 U/L (0-40); Blood Urea Nitrogen 39 mg/dL (6-20); Calcium 8.8 mg/dL (8.5-10.5); Carbon Dioxide 21 mmol/L (22-29); Chloride 109 mmol/L (98-107); Chol HDL Ratio 2.53 mg/dL (1.0-5.00); Cholesterol 185 mg/dL (0-200); Gamma Glutamyl Transferase 23 U/L (8-61); Globulin 2.3 g/dL (1.3-4.6); Glomerular Filtration Rate 49.5 mL/min (90-130); Glucose 83 mg/dL (65-115); HDL Cholesterol 73 mg/dL (60-100); LDL Cholesterol Calculated 101 mg/dL (50-129); LDL HDL Ratio 1.38 RATIO (0.00-3.22); Magnesium 1.7 mg/dL (1.7-2.3); Osmolality Calculated 303 mOsm/kg (285-295); Phosphorus 4.2 mg/dL (2.5-4.5); Potassium 4.8 mmol/L (3.5-5.1); Sodium 142 mmol/L (136-145); Total Bilirubin 0.3 mg/dL (0.15-1.2); Total Protein 6.4 g/dL (6.6-8.7); Triglycerides 57 mg/dL (0-150)
[2024-08-05 13:03] LABS: Tacrolimus, Highly Sensitive 6.6 mcg/L
[2024-08-06 13:25] LABS: BK VIRUS DNA, QN PCR Not Detected (Not Detected); BK VIRUS DNA, QN RT PCR Not Detected Log IU/mL (Not Detected)
== END 2024-08-04 08:08 | disposition home or self-care (01) ==
LOC: LAB 08:09
PROVIDERS: PCP Family Medicine; Visit Provider Internal Medicine Nephrology
DX: Z94.0 Kidney transplant status (principal); Z94.4 Liver transplant status; Z79.4 Long term (current) use of insulin; Z79.899 Other long term (current) drug therapy; E61.2 Magnesium deficiency; E83.30 Disorder of phosphorus metabolism, unspecified; E78.5 Hyperlipidemia, unspecified
CPT/HCPCS: 36415; 80053; 80061; 80197; 82977; 83735; 84100; 85025; 87798

== ENCOUNTER 2024-08-11 08:46 | Outpatient (CLI) | payer OTHER, SELFPAY ==
[2024-08-11 09:46] LABS: Basophils % 0.6 %; Eosinophils # 0.2 10^3/uL (0.0-0.8); Eosinophils % 3.2 %; Hematocrit 32.2 % (37-53); Lymphocytes # 0.8 10^3/uL (0.8-4.8); Lymphocytes % 14.6 %; Mean Corpuscular HGB Conc 29.8 g/dL (30-55); Mean Corpuscular Hemoglobin 32.3 pg (27-33); Mean Corpuscular Volume 108.4 fl (82-101); Mean Platelet Volume 9.1 fL (7.4-10.4); Monocytes # 0.8 10^3/uL (0.2-0.9); Monocytes % 15.6 %; Neutrophils # 3.49 10^3/uL (1.8-7.7); Neutrophils % 65.4 %; Nucleated Red Blood Cells % 0 %; Platelet Count 153 10^3/cmm (157-399); Red Blood Count 2.97 10^6/uL (3.85-5.65); White Blood Count 5.33 10^3/uL (3.29-11.43)
[2024-08-11 10:57] LABS: Alanine Aminotransferase 16 U/L (0-41); Albumin Level 4.3 g/dL (3.5-5.2); Alkaline Phosphatase 56 U/L (40-130); Anion Gap 17.9 (5-19); Aspartate Amino Transferase 13 U/L (0-40); Blood Urea Nitrogen 41 mg/dL (6-20); Calcium 8.9 mg/dL (8.5-10.5); Carbon Dioxide 20 mmol/L (22-29); Chloride 106 mmol/L (98-107); Gamma Glutamyl Transferase 19 U/L (8-61); Globulin 2.2 g/dL (1.3-4.6); Glomerular Filtration Rate 49.5 mL/min (90-130); Glucose 91 mg/dL (65-115); Magnesium 1.8 mg/dL (1.7-2.3); Osmolality Calculated 298 mOsm/kg (285-295); Phosphorus 4.6 mg/dL (2.5-4.5); Potassium 4.9 mmol/L (3.5-5.1); Sodium 139 mmol/L (136-145); Total Bilirubin 0.2 mg/dL (0.15-1.2); Total Protein 6.5 g/dL (6.6-8.7)
[2024-08-12 15:18] LABS: Tacrolimus, Highly Sensitive 5.6 mcg/L
[2024-08-13 23:39] LABS: BK VIRUS DNA, QN PCR Not Detected (Not Detected); BK VIRUS DNA, QN RT PCR Not Detected Log IU/mL (Not Detected)
== END 2024-08-11 08:47 | disposition home or self-care (01) ==
LOC: LAB 08:48
PROVIDERS: PCP Family Medicine; Visit Provider Internal Medicine Nephrology
DX: E78.5 Hyperlipidemia, unspecified (principal); E61.2 Magnesium deficiency; Z94.0 Kidney transplant status; Z94.4 Liver transplant status
CPT/HCPCS: 36415; 80053; 80061; 80197; 82977; 83735; 84100; 85025; 87798

== ENCOUNTER 2024-08-18 08:35 | Outpatient (CLI) | payer OTHER, SELFPAY ==
[2024-08-18 09:40] LABS: Basophils # 0.1 10^3/uL (0.0-0.1); Basophils % 1.1 %; Eosinophils # 0.2 10^3/uL (0.0-0.8); Eosinophils % 3.2 %; Hematocrit 30.9 % (37-53); Lymphocytes # 0.9 10^3/uL (0.8-4.8); Lymphocytes % 15.5 %; Mean Corpuscular HGB Conc 31.4 g/dL (30-55); Mean Corpuscular Hemoglobin 31.3 pg (27-33); Mean Corpuscular Volume 99.7 fl (82-101); Monocytes # 0.8 10^3/uL (0.2-0.9); Neutrophils # 3.73 10^3/uL (1.8-7.7); Neutrophils % 65.8 %; Nucleated Red Blood Cells % 0 %; Platelet Count 153 10^3/cmm (157-399); Red Cell Distribution Width 16.4 % (12.1-15.1); White Blood Count 5.66 10^3/uL (3.29-11.43)
[2024-08-18 10:19] LABS: Alanine Aminotransferase 17 U/L (0-41); Albumin Level 4.3 g/dL (3.5-5.2); Alkaline Phosphatase 66 U/L (40-130); Aspartate Amino Transferase 12 U/L (0-40); Blood Urea Nitrogen 32 mg/dL (6-20); Calcium 8.8 mg/dL (8.5-10.5); Carbon Dioxide 21 mmol/L (22-29); Chloride 109 mmol/L (98-107); Gamma Glutamyl Transferase 23 U/L (8-61); Globulin 2.3 g/dL (1.3-4.6); Glomerular Filtration Rate 42.9 mL/min (90-130); Glucose 81 mg/dL (65-115); Magnesium 1.7 mg/dL (1.7-2.3); Osmolality Calculated 304 mOsm/kg (285-295); Phosphorus 4.6 mg/dL (2.5-4.5); Sodium 144 mmol/L (136-145); Total Bilirubin 0.2 mg/dL (0.15-1.2); Total Protein 6.6 g/dL (6.6-8.7)
[2024-08-18 11:03] LABS: Estmated Average Glucose 108; Hemoglobin A1C 5.4 % (4.0-6.0)
[2024-08-19 15:15] LABS: Tacrolimus, Highly Sensitive 8.4 mcg/L
== END 2024-08-18 08:36 | disposition home or self-care (01) ==
LOC: LAB 08:36
PROVIDERS: PCP Family Medicine; Visit Provider Internal Medicine
DX: Z94.0 Kidney transplant status (principal); Z79.899 Other long term (current) drug therapy; E78.5 Hyperlipidemia, unspecified; Z94.4 Liver transplant status; E61.2 Magnesium deficiency
CPT/HCPCS: 36415; 80053; 80197; 82977; 83036; 83735; 84100; 85025; 87798

== ENCOUNTER 2024-08-25 08:29 | Outpatient (CLI) | payer OTHER, SELFPAY ==
[2024-08-25 09:29] LABS: Hematocrit 33.2 % (37-53); Hemoglobin 10.20 g/dL (11.27-16.99); Mean Corpuscular HGB Conc 30.7 g/dL (30-55); Mean Corpuscular Hemoglobin 31.2 pg (27-33); Mean Corpuscular Volume 101.5 fl (82-101); Nucleated Red Blood Cells % 0 %; Platelet Count 142 10^3/cmm (157-399); Red Blood Count 3.27 10^6/uL (3.85-5.65); White Blood Count 4.70 10^3/uL (3.29-11.43)
[2024-08-25 09:51] LABS: Alanine Aminotransferase 19 U/L (0-41); Albumin Level 4.7 g/dL (3.5-5.2); Alkaline Phosphatase 75 U/L (40-130); Anion Gap 19.7 (5-19); Aspartate Amino Transferase 13 U/L (0-40); Blood Urea Nitrogen 36 mg/dL (6-20); Calcium 9.1 mg/dL (8.5-10.5); Carbon Dioxide 20 mmol/L (22-29); Chloride 110 mmol/L (98-107); Cholesterol 205 mg/dL (0-200); Globulin 2.5 g/dL (1.3-4.6); Glucose 85 mg/dL (65-115); HDL Cholesterol 75 mg/dL (60-100); Magnesium 1.8 mg/dL (1.7-2.3); Osmolality Calculated 306 mOsm/kg (285-295); Potassium 5.7 mmol/L (3.5-5.1); Sodium 144 mmol/L (136-145); Total Protein 7.2 g/dL (6.6-8.7); Triglycerides 56 mg/dL (0-150)
[2024-08-26 13:13] LABS: Tacrolimus, Highly Sensitive 7.5 mcg/L
[2024-08-27 20:30] LABS: BK VIRUS DNA, QN PCR Not Detected (Not Detected); BK VIRUS DNA, QN RT PCR Not Detected Log IU/mL (Not Detected)
== END 2024-08-25 08:30 | disposition home or self-care (01) ==
PROVIDERS: PCP Family Medicine; Visit Provider Internal Medicine Nephrology
DX: E78.5 Hyperlipidemia, unspecified (principal); E61.2 Magnesium deficiency; Z79.899 Other long term (current) drug therapy; Z94.0 Kidney transplant status; Z94.4 Liver transplant status
CPT/HCPCS: 36415; 80053; 80061; 80197; 82977; 83735; 84100; 85025; 87798

== ENCOUNTER 2024-09-01 08:18 | Outpatient (CLI) | payer OTHER, SELFPAY ==
[2024-09-01 09:12] LABS: Hematocrit 31.1 % (37-53); Hemoglobin 10.00 g/dL (11.27-16.99); Mean Corpuscular HGB Conc 32.2 g/dL (30-55); Mean Corpuscular Hemoglobin 31.4 pg (27-33); Mean Corpuscular Volume 97.8 fl (82-101); Nucleated Red Blood Cells % 0 %; Platelet Count 119 10^3/cmm (157-399); Red Blood Count 3.18 10^6/uL (3.85-5.65); White Blood Count 4.32 10^3/uL (3.29-11.43)
[2024-09-01 09:38] LABS: Alanine Aminotransferase 16 U/L (0-41); Albumin Level 4.4 g/dL (3.5-5.2); Alkaline Phosphatase 76 U/L (40-130); Anion Gap 17.5 (5-19); Aspartate Amino Transferase 11 U/L (0-40); Blood Urea Nitrogen 46 mg/dL (6-20); Calcium 8.9 mg/dL (8.5-10.5); Carbon Dioxide 20 mmol/L (22-29); Chloride 106 mmol/L (98-107); Cholesterol 184 mg/dL (0-200); Globulin 2.4 g/dL (1.3-4.6); Glucose 90 mg/dL (65-115); HDL Cholesterol 64 mg/dL (60-100); Magnesium 1.7 mg/dL (1.7-2.3); Osmolality Calculated 299 mOsm/kg (285-295); Potassium 4.5 mmol/L (3.5-5.1); Sodium 139 mmol/L (136-145); Total Protein 6.8 g/dL (6.6-8.7); Triglycerides 78 mg/dL (0-150)
[2024-09-02 15:17] LABS: Tacrolimus, Highly Sensitive 8.3 mcg/L
== END 2024-09-01 08:19 | disposition home or self-care (01) ==
LOC: LAB 08:24
PROVIDERS: PCP Family Medicine
DX: E78.5 Hyperlipidemia, unspecified (principal); Z94.4 Liver transplant status; Z94.0 Kidney transplant status; E61.2 Magnesium deficiency
CPT/HCPCS: 36415; 80053; 80061; 80197; 82977; 83735; 84100; 85025; 87798

== ENCOUNTER 2024-09-08 08:25 | Outpatient (CLI) | payer OTHER, SELFPAY ==
[2024-09-08 09:01] LABS: Hematocrit 31.0 % (37-53); Hemoglobin 9.80 g/dL (11.27-16.99); Mean Corpuscular HGB Conc 31.6 g/dL (30-55); Mean Corpuscular Hemoglobin 31.4 pg (27-33); Mean Corpuscular Volume 99.4 fl (82-101); Nucleated Red Blood Cells % 0 %; Platelet Count 131 10^3/cmm (157-399); Red Blood Count 3.12 10^6/uL (3.85-5.65); White Blood Count 4.89 10^3/uL (3.29-11.43)
[2024-09-08 09:26] LABS: Alanine Aminotransferase 18 U/L (0-41); Albumin Level 4.3 g/dL (3.5-5.2); Alkaline Phosphatase 78 U/L (40-130); Anion Gap 16.5 (5-19); Aspartate Amino Transferase 12 U/L (0-40); Blood Urea Nitrogen 32 mg/dL (6-20); Calcium 8.6 mg/dL (8.5-10.5); Carbon Dioxide 22 mmol/L (22-29); Chloride 109 mmol/L (98-107); Cholesterol 165 mg/dL (0-200); Globulin 2.1 g/dL (1.3-4.6); Glucose 89 mg/dL (65-115); HDL Cholesterol 63 mg/dL (60-100); Magnesium 1.6 mg/dL (1.7-2.3); Osmolality Calculated 302 mOsm/kg (285-295); Potassium 4.5 mmol/L (3.5-5.1); Sodium 143 mmol/L (136-145); Total Protein 6.4 g/dL (6.6-8.7); Triglycerides 65 mg/dL (0-150)
[2024-09-09 15:50] LABS: Tacrolimus, Highly Sensitive 7.8 mcg/L
== END 2024-09-08 08:26 | disposition home or self-care (01) ==
PROVIDERS: PCP Family Medicine; Visit Provider Hospitalist
DX: Z79.899 Other long term (current) drug therapy (principal); Z94.0 Kidney transplant status; E61.2 Magnesium deficiency; E78.5 Hyperlipidemia, unspecified
CPT/HCPCS: 36415; 80053; 80061; 80197; 82977; 83735; 84100; 85025; 87798

== ENCOUNTER 2024-09-15 08:50 | Outpatient (CLI) | payer OTHER, SELFPAY ==
[2024-09-15 10:00] LABS: Hematocrit 31.0 % (37-53); Hemoglobin 9.80 g/dL (11.27-16.99); Mean Corpuscular HGB Conc 31.6 g/dL (30-55); Mean Corpuscular Hemoglobin 31.2 pg (27-33); Mean Corpuscular Volume 98.7 fl (82-101); Nucleated Red Blood Cells % 0 %; Platelet Count 130 10^3/cmm (157-399); Red Blood Count 3.14 10^6/uL (3.85-5.65); White Blood Count 4.04 10^3/uL (3.29-11.43)
[2024-09-15 10:14] LABS: Alanine Aminotransferase 17 U/L (0-41); Albumin Level 4.4 g/dL (3.5-5.2); Alkaline Phosphatase 76 U/L (40-130); Anion Gap 17.0 (5-19); Aspartate Amino Transferase 13 U/L (0-40); Blood Urea Nitrogen 38 mg/dL (6-20); Calcium 8.7 mg/dL (8.5-10.5); Carbon Dioxide 21 mmol/L (22-29); Chloride 107 mmol/L (98-107); Cholesterol 177 mg/dL (0-200); Globulin 2.2 g/dL (1.3-4.6); Glucose 89 mg/dL (65-115); HDL Cholesterol 69 mg/dL (60-100); Magnesium 1.7 mg/dL (1.7-2.3); Osmolality Calculated 299 mOsm/kg (285-295); Potassium 5.0 mmol/L (3.5-5.1); Sodium 140 mmol/L (136-145); Total Protein 6.6 g/dL (6.6-8.7); Triglycerides 48 mg/dL (0-150)
[2024-09-15 11:06] LABS: Slide Review Slide Review Perform
[2024-09-16 17:04] LABS: Tacrolimus, Highly Sensitive 7.8 mcg/L
[2024-09-17 23:00] LABS: BK VIRUS DNA, QN PCR Not Detected (Not Detected); BK VIRUS DNA, QN RT PCR Not Detected Log IU/mL (Not Detected)
== END 2024-09-15 08:51 | disposition home or self-care (01) ==
LOC: LAB 08:57
PROVIDERS: PCP Family Medicine; Visit Provider Internal Medicine Nephrology
DX: E61.2 Magnesium deficiency (principal); E78.5 Hyperlipidemia, unspecified; Z79.899 Other long term (current) drug therapy; Z94.0 Kidney transplant status; Z94.4 Liver transplant status
CPT/HCPCS: 36415; 80053; 80061; 80197; 82977; 83735; 84100; 85025; 87798

== ENCOUNTER 2024-09-19 08:51 | Outpatient (CLI) | payer OTHER, SELFPAY ==
[2024-09-19 09:50] LABS: Hematocrit 30.6 % (37-53); Hemoglobin 9.50 g/dL (11.27-16.99); Mean Corpuscular HGB Conc 31.0 g/dL (30-55); Mean Corpuscular Hemoglobin 31.4 pg (27-33); Mean Corpuscular Volume 101.0 fl (82-101); Nucleated Red Blood Cells % 0 %; Platelet Count 125 10^3/cmm (157-399); Red Blood Count 3.03 10^6/uL (3.85-5.65); White Blood Count 3.75 10^3/uL (3.29-11.43)
[2024-09-19 10:19] LABS: Alanine Aminotransferase 16 U/L (0-41); Albumin Level 4.3 g/dL (3.5-5.2); Alkaline Phosphatase 78 U/L (40-130); Anion Gap 14.7 (5-19); Aspartate Amino Transferase 11 U/L (0-40); Blood Urea Nitrogen 30 mg/dL (6-20); Calcium 8.6 mg/dL (8.5-10.5); Carbon Dioxide 22 mmol/L (22-29); Chloride 106 mmol/L (98-107); Cholesterol 164 mg/dL (0-200); Globulin 2.1 g/dL (1.3-4.6); Glucose 92 mg/dL (65-115); HDL Cholesterol 65 mg/dL (60-100); Magnesium 1.7 mg/dL (1.7-2.3); Osmolality Calculated 292 mOsm/kg (285-295); Potassium 4.7 mmol/L (3.5-5.1); Sodium 138 mmol/L (136-145); Total Protein 6.4 g/dL (6.6-8.7); Triglycerides 68 mg/dL (0-150)
[2024-09-19 10:55] LABS: INR 1.14 (0.8-1.2); Prothrombin Time 15.40 SECONDS (12.1-14.9)
[2024-09-22 01:35] LABS: BK VIRUS DNA, QN PCR Not Detected (Not Detected); BK VIRUS DNA, QN RT PCR Not Detected Log IU/mL (Not Detected)
[2024-09-22 17:25] LABS: Tacrolimus, Highly Sensitive 5.7 mcg/L
== END 2024-09-19 08:52 | disposition home or self-care (01) ==
LOC: LAB 08:53
PROVIDERS: PCP Family Medicine; Visit Provider Family Medicine
DX: Z94.0 Kidney transplant status (principal); Z94.4 Liver transplant status; E78.5 Hyperlipidemia, unspecified
CPT/HCPCS: 36415; 80053; 80061; 80197; 82977; 83735; 84100; 85025; 85610; 87798

== ENCOUNTER 2024-09-22 09:01 | Outpatient (CLI) | payer OTHER, SELFPAY ==
[2024-09-22 11:02] LABS: Hematocrit 32.0 % (37-53); Hemoglobin 9.80 g/dL (11.27-16.99); Mean Corpuscular HGB Conc 30.6 g/dL (30-55); Mean Corpuscular Hemoglobin 30.8 pg (27-33); Mean Corpuscular Volume 100.6 fl (82-101); Nucleated Red Blood Cells % 0 %; Platelet Count 143 10^3/cmm (157-399); Red Blood Count 3.18 10^6/uL (3.85-5.65); White Blood Count 3.58 10^3/uL (3.29-11.43)
[2024-09-22 11:23] LABS: Alanine Aminotransferase 18 U/L (0-41); Albumin Level 4.4 g/dL (3.5-5.2); Alkaline Phosphatase 80 U/L (40-130); Anion Gap 16.8 (5-19); Aspartate Amino Transferase 13 U/L (0-40); Blood Urea Nitrogen 30 mg/dL (6-20); Calcium 9.0 mg/dL (8.5-10.5); Carbon Dioxide 22 mmol/L (22-29); Chloride 109 mmol/L (98-107); Cholesterol 183 mg/dL (0-200); Globulin 2.3 g/dL (1.3-4.6); Glucose 91 mg/dL (65-115); HDL Cholesterol 64 mg/dL (60-100); Magnesium 1.8 mg/dL (1.7-2.3); Osmolality Calculated 302 mOsm/kg (285-295); Potassium 4.8 mmol/L (3.5-5.1); Sodium 143 mmol/L (136-145); Total Protein 6.7 g/dL (6.6-8.7); Triglycerides 94 mg/dL (0-150)
[2024-09-23 15:48] LABS: Tacrolimus, Highly Sensitive 4.3 mcg/L
== END 2024-09-22 09:02 | disposition home or self-care (01) ==
PROVIDERS: PCP Family Medicine; Visit Provider Internal Medicine Nephrology
DX: Z79.899 Other long term (current) drug therapy (principal); Z94.0 Kidney transplant status; E83.30 Disorder of phosphorus metabolism, unspecified; E78.5 Hyperlipidemia, unspecified
CPT/HCPCS: 36415; 80053; 80061; 80197; 82977; 83735; 84100; 85025; 87798

== ENCOUNTER 2024-09-29 08:22 | Outpatient (CLI) | payer OTHER, SELFPAY ==
[2024-09-29 09:55] LABS: Hematocrit 32.1 % (37-53); Hemoglobin 10.10 g/dL (11.27-16.99); Mean Corpuscular HGB Conc 31.5 g/dL (30-55); Mean Corpuscular Hemoglobin 31.2 pg (27-33); Mean Corpuscular Volume 99.1 fl (82-101); Nucleated Red Blood Cells % 0 %; Platelet Count 136 10^3/cmm (157-399); Red Blood Count 3.24 10^6/uL (3.85-5.65); White Blood Count 4.31 10^3/uL (3.29-11.43)
[2024-09-29 10:14] LABS: Alanine Aminotransferase 16 U/L (0-41); Albumin Level 4.4 g/dL (3.5-5.2); Alkaline Phosphatase 87 U/L (40-130); Anion Gap 14.0 (5-19); Aspartate Amino Transferase 13 U/L (0-40); Blood Urea Nitrogen 33 mg/dL (6-20); Calcium 8.9 mg/dL (8.5-10.5); Carbon Dioxide 25 mmol/L (22-29); Chloride 109 mmol/L (98-107); Globulin 2.3 g/dL (1.3-4.6); Glucose 77 mg/dL (65-115); Magnesium 1.8 mg/dL (1.7-2.3); Osmolality Calculated 302 mOsm/kg (285-295); Potassium 5.0 mmol/L (3.5-5.1); Sodium 143 mmol/L (136-145); Total Protein 6.7 g/dL (6.6-8.7)
[2024-09-30 15:10] LABS: Tacrolimus, Highly Sensitive 7.0 mcg/L
== END 2024-09-29 08:23 | disposition home or self-care (01) ==
LOC: LAB 08:24
PROVIDERS: PCP Family Medicine; Visit Provider Internal Medicine Nephrology
DX: E83.41 Hypermagnesemia (principal); Z94.0 Kidney transplant status
CPT/HCPCS: 36415; 80053; 80197; 82977; 83735; 85025

== ENCOUNTER 2024-10-09 10:56 | Outpatient (CLI) | payer OTHER, SELFPAY ==
--- NOTE | 2024-10-09 11:02 | CT_ITS ---
WS: [id number] CT ABDOMEN AND PELVIS NONCONTRAST HISTORY: KIDNEY REPLACED BY TRANSPLANT/LIVER REPLACED/POST OP PAIN TECHNIQUE: Imaging performed through the abdomen and pelvis. Coronal and sagittal reformats are submitted. All CT scans at [facility] use at least one of these dose optimization techniques: automated exposure control; mA and/or kV adjustment per patient size (includes targeted exams where dose is matched to clinical indication); or iterative reconstruction. DLP: 317.96 mGy.cm COMPARISON: 05/12/2024 Lower thorax: Lung bases are clear. Visualized heart is normal. No hiatal hernia. Liver: Status post liver transplant. Noncontrast evaluation of the liver appears appropriate. There is no atrophy. No obvious duct dilatation. Gallbladder: Surgically absent. Pancreas: Normal size and attenuation. Normal pancreatic duct. No pancreatitis or mass. Spleen: Normal. Adrenal glands: Normal. No mass. Right kidney: Normal size kidney with no obstruction. Left kidney: Moderate atrophy with no obstruction. Transplanted kidney in the RIGHT lower quadrant. No hydronephrosis. There is no perinephric stranding. Just along the inferior pole of the transplanted kidney is a fluid collection which is walled off. This collection measures 2.9 x 3.2 x 5.2 cm. This collection abuts the inferior pole of the RIGHT kidney. Aorta: Mild atherosclerosis abdominal aorta with no aneurysm. No free fluid, intraperitoneal air or significant lymphadenopathy. GI tract: Stomach is markedly distended with food products. No small bowel obstruction. No colon obstruction. Appendix is normal. Abdominal wall: Postsurgical incision sites are noted. No fluid collection or adverse changes. Pelvis: Normally distended urinary bladder. RIGHT inguinal hernia contains fat. No herniation of the bowel loop. There is a small amount of fluid associated with the LEFT inguinal canal. Osseous structures: Osteopenia. Degenerative disc disease. CT/CT abdomen pelvis wo con [id number] IMPRESSION: 1. Patient is status post liver and kidney transplant. 2. Transplanted kidney in the RIGHT lower quadrant without hydronephrosis. 3. There is a small fluid collection abutting the lower pole of the transplant kidney measuring 2.9 x 3.2 x 5.2 cm. This may be a small postoperative seroma or resolving hematoma. 4. No ascites. 5. Marked distention of the stomach with food products. No GI tract obstructio n. 6. Postoperative changes in the abdominal wall.
== END 2024-10-09 10:57 | disposition home or self-care (01) ==
LOC: RAD 10:56
PROVIDERS: PCP Family Medicine; Visit Provider Nurse Practitioner
DX: G89.18 Other acute postprocedural pain (principal); Z94.4 Liver transplant status; Z94.0 Kidney transplant status
CPT/HCPCS: 74176

== ENCOUNTER 2024-10-13 08:04 | Outpatient (CLI) | payer OTHER, SELFPAY ==
[2024-10-13 08:44] LABS: Hematocrit 30.9 % (37-53); Hemoglobin 9.50 g/dL (11.27-16.99); Mean Corpuscular HGB Conc 30.7 g/dL (30-55); Mean Corpuscular Hemoglobin 30.2 pg (27-33); Mean Corpuscular Volume 98.1 fl (82-101); Nucleated Red Blood Cells % 0 %; Platelet Count 130 10^3/cmm (157-399); Red Blood Count 3.15 10^6/uL (3.85-5.65); White Blood Count 4.42 10^3/uL (3.29-11.43)
[2024-10-13 09:08] LABS: Alanine Aminotransferase 18 U/L (0-41); Albumin Level 4.1 g/dL (3.5-5.2); Alkaline Phosphatase 83 U/L (40-130); Aspartate Amino Transferase 15 U/L (0-40); Blood Urea Nitrogen 35 mg/dL (6-20); Calcium 8.5 mg/dL (8.5-10.5); Carbon Dioxide 23 mmol/L (22-29); Chloride 107 mmol/L (98-107); Globulin 2.2 g/dL (1.3-4.6); Glucose 90 mg/dL (65-115); Magnesium 1.8 mg/dL (1.7-2.3); Osmolality Calculated 296 mOsm/kg (285-295); Sodium 139 mmol/L (136-145); Total Protein 6.3 g/dL (6.6-8.7)
[2024-10-13 09:09] LABS: Anion Gap 14.4 (5-19); Potassium 5.4 mmol/L (3.5-5.1)
[2024-10-14 16:36] LABS: Tacrolimus, Highly Sensitive 6.8 mcg/L
== END 2024-10-13 08:05 | disposition home or self-care (01) ==
LOC: LAB 08:06
PROVIDERS: PCP Family Medicine; Visit Provider Internal Medicine Nephrology
DX: Z79.899 Other long term (current) drug therapy (principal); Z94.0 Kidney transplant status
CPT/HCPCS: 36415; 80053; 80197; 82977; 83735; 85025

== ENCOUNTER 2024-10-27 08:22 | Outpatient (CLI) | payer OTHER, SELFPAY ==
[2024-10-27 09:32] LABS: Hematocrit 33.9 % (37-53); Hemoglobin 10.60 g/dL (11.27-16.99); Mean Corpuscular HGB Conc 31.3 g/dL (30-55); Mean Corpuscular Hemoglobin 30.4 pg (27-33); Mean Corpuscular Volume 97.1 fl (82-101); Nucleated Red Blood Cells % 0 %; Platelet Count 120 10^3/cmm (157-399); Red Blood Count 3.49 10^6/uL (3.85-5.65); White Blood Count 3.20 10^3/uL (3.29-11.43)
[2024-10-27 09:51] LABS: Alanine Aminotransferase 17 U/L (0-41); Albumin Level 4.4 g/dL (3.5-5.2); Alkaline Phosphatase 105 U/L (40-130); Anion Gap 15.9 (5-19); Aspartate Amino Transferase 12 U/L (0-40); Blood Urea Nitrogen 36 mg/dL (6-20); Calcium 8.5 mg/dL (8.5-10.5); Carbon Dioxide 19 mmol/L (22-29); Chloride 109 mmol/L (98-107); Globulin 2.5 g/dL (1.3-4.6); Glucose 90 mg/dL (65-115); Magnesium 1.9 mg/dL (1.7-2.3); Osmolality Calculated 296 mOsm/kg (285-295); Potassium 4.9 mmol/L (3.5-5.1); Sodium 139 mmol/L (136-145); Total Protein 6.9 g/dL (6.6-8.7)
[2024-10-28 13:03] LABS: Tacrolimus, Highly Sensitive 5.8 mcg/L
== END 2024-10-27 08:23 | disposition home or self-care (01) ==
LOC: LAB 08:24
PROVIDERS: PCP Family Medicine; Visit Provider Internal Medicine Nephrology
DX: Z94.0 Kidney transplant status (principal); E83.41 Hypermagnesemia
CPT/HCPCS: 36415; 80053; 80197; 82977; 83735; 85025

== ENCOUNTER 2024-11-10 08:10 | Outpatient (CLI) | payer OTHER, SELFPAY ==
[2024-11-10 09:08] LABS: Hematocrit 35.5 % (37-53); Hemoglobin 11.10 g/dL (11.27-16.99); Mean Corpuscular HGB Conc 31.3 g/dL (30-55); Mean Corpuscular Hemoglobin 30.2 pg (27-33); Mean Corpuscular Volume 96.7 fl (82-101); Nucleated Red Blood Cells % 0 %; Platelet Count 118 10^3/cmm (157-399); Red Blood Count 3.67 10^6/uL (3.85-5.65); White Blood Count 3.80 10^3/uL (3.29-11.43)
[2024-11-10 09:32] LABS: Alanine Aminotransferase 19 U/L (0-41); Albumin Level 4.4 g/dL (3.5-5.2); Alkaline Phosphatase 97 U/L (40-130); Anion Gap 16.0 (5-19); Aspartate Amino Transferase 13 U/L (0-40); Blood Urea Nitrogen 39 mg/dL (6-20); Calcium 8.7 mg/dL (8.5-10.5); Carbon Dioxide 21 mmol/L (22-29); Chloride 106 mmol/L (98-107); Globulin 2.3 g/dL (1.3-4.6); Glucose 95 mg/dL (65-115); Magnesium 1.7 mg/dL (1.7-2.3); Osmolality Calculated 295 mOsm/kg (285-295); Potassium 5.0 mmol/L (3.5-5.1); Sodium 138 mmol/L (136-145); Total Protein 6.7 g/dL (6.6-8.7)
[2024-11-11 13:15] LABS: Tacrolimus, Highly Sensitive 10.1 mcg/L
== END 2024-11-10 08:11 | disposition home or self-care (01) ==
PROVIDERS: PCP Family Medicine; Visit Provider Internal Medicine Nephrology
DX: Z94.0 Kidney transplant status (principal)
CPT/HCPCS: 36415; 80053; 80197; 82977; 83735; 85025

== ENCOUNTER 2024-11-24 07:43 | Outpatient (CLI) | payer OTHER, SELFPAY ==
[2024-11-24 09:29] LABS: Hematocrit 35.9 % (37-53); Hemoglobin 11.20 g/dL (11.27-16.99); Mean Corpuscular HGB Conc 31.2 g/dL (30-55); Mean Corpuscular Hemoglobin 29.9 pg (27-33); Mean Corpuscular Volume 95.7 fl (82-101); Nucleated Red Blood Cells % 0 %; Platelet Count 106 10^3/cmm (157-399); Red Blood Count 3.75 10^6/uL (3.85-5.65); White Blood Count 4.01 10^3/uL (3.29-11.43)
[2024-11-24 09:53] LABS: Alanine Aminotransferase 16 U/L (0-41); Albumin Level 4.3 g/dL (3.5-5.2); Alkaline Phosphatase 96 U/L (40-130); Blood Urea Nitrogen 36 mg/dL (6-20); Calcium 8.7 mg/dL (8.5-10.5); Carbon Dioxide 21 mmol/L (22-29); Chloride 108 mmol/L (98-107); Globulin 2.3 g/dL (1.3-4.6); Glucose 109 mg/dL (65-115); Magnesium 1.6 mg/dL (1.7-2.3); Osmolality Calculated 301 mOsm/kg (285-295); Sodium 141 mmol/L (136-145); Total Protein 6.6 g/dL (6.6-8.7)
[2024-11-24 09:58] LABS: Anion Gap 17.0 (5-19); Aspartate Amino Transferase 14 U/L (0-40); Potassium 5.0 mmol/L (3.5-5.1)
== END 2024-11-24 07:44 | disposition home or self-care (01) ==
LOC: LAB 07:44
PROVIDERS: PCP Family Medicine; Visit Provider Hospitalist
DX: E83.41 Hypermagnesemia (principal); Z94.0 Kidney transplant status; Z79.899 Other long term (current) drug therapy
CPT/HCPCS: 80053; 80197; 82977; 83735; 85025

== ENCOUNTER 2024-12-08 07:37 | Outpatient (CLI) | payer OTHER, SELFPAY ==
[2024-12-08 08:57] LABS: Hematocrit 37.4 % (37-53); Hemoglobin 11.40 g/dL (11.27-16.99); Mean Corpuscular HGB Conc 30.5 g/dL (30-55); Mean Corpuscular Hemoglobin 29.2 pg (27-33); Mean Corpuscular Volume 95.7 fl (82-101); Nucleated Red Blood Cells % 0 %; Platelet Count 135 10^3/cmm (157-399); Red Blood Count 3.91 10^6/uL (3.85-5.65); White Blood Count 4.41 10^3/uL (3.29-11.43)
[2024-12-08 09:19] LABS: Alanine Aminotransferase 17 U/L (0-41); Albumin Level 4.6 g/dL (3.5-5.2); Alkaline Phosphatase 103 U/L (40-130); Anion Gap 14.7 (5-19); Aspartate Amino Transferase 13 U/L (0-40); Blood Urea Nitrogen 36 mg/dL (6-20); Calcium 8.7 mg/dL (8.5-10.5); Carbon Dioxide 23 mmol/L (22-29); Chloride 104 mmol/L (98-107); Globulin 2.4 g/dL (1.3-4.6); Glucose 90 mg/dL (65-115); Magnesium 1.7 mg/dL (1.7-2.3); Osmolality Calculated 292 mOsm/kg (285-295); Potassium 4.7 mmol/L (3.5-5.1); Sodium 137 mmol/L (136-145); Total Protein 7.0 g/dL (6.6-8.7)
== END 2024-12-08 07:38 | disposition home or self-care (01) ==
PROVIDERS: PCP Family Medicine; Visit Provider Internal Medicine Nephrology
DX: E83.41 Hypermagnesemia (principal)
CPT/HCPCS: 36415; 80053; 80197; 82977; 83735; 85025

== ENCOUNTER 2024-12-22 08:41 | Outpatient (CLI) | payer OTHER, SELFPAY ==
[2024-12-22 10:18] LABS: Hematocrit 38.0 % (37-53); Hemoglobin 11.80 g/dL (11.27-16.99); Mean Corpuscular HGB Conc 31.1 g/dL (30-55); Mean Corpuscular Hemoglobin 29.9 pg (27-33); Mean Corpuscular Volume 96.2 fl (82-101); Nucleated Red Blood Cells % 0 %; Platelet Count 131 10^3/cmm (157-399); Red Blood Count 3.95 10^6/uL (3.85-5.65); White Blood Count 3.90 10^3/uL (3.29-11.43)
[2024-12-22 10:47] LABS: Alanine Aminotransferase 17 U/L (0-41); Albumin Level 4.7 g/dL (3.5-5.2); Alkaline Phosphatase 107 U/L (40-130); Anion Gap 15.0 (5-19); Aspartate Amino Transferase 13 U/L (0-40); Blood Urea Nitrogen 28 mg/dL (6-20); Calcium 8.6 mg/dL (8.5-10.5); Carbon Dioxide 21 mmol/L (22-29); Chloride 108 mmol/L (98-107); Globulin 2.2 g/dL (1.3-4.6); Glucose 93 mg/dL (65-115); Magnesium 1.8 mg/dL (1.7-2.3); Osmolality Calculated 293 mOsm/kg (285-295); Potassium 5.0 mmol/L (3.5-5.1); Sodium 139 mmol/L (136-145); Total Protein 6.9 g/dL (6.6-8.7)
== END 2024-12-22 08:42 | disposition home or self-care (01) ==
LOC: LAB 08:41
PROVIDERS: PCP Family Medicine; Visit Provider Hospitalist
DX: Z79.899 Other long term (current) drug therapy (principal); Z94.0 Kidney transplant status; E83.41 Hypermagnesemia
CPT/HCPCS: 36415; 80053; 80197; 82977; 83735; 85025

== ENCOUNTER 2025-01-05 08:24 | Outpatient (CLI) | payer OTHER, SELFPAY ==
[2025-01-05 09:29] LABS: Hematocrit 37.4 % (37-53); Hemoglobin 11.80 g/dL (11.27-16.99); Mean Corpuscular HGB Conc 31.6 g/dL (30-55); Mean Corpuscular Hemoglobin 29.9 pg (27-33); Mean Corpuscular Volume 94.9 fl (82-101); Nucleated Red Blood Cells % 0 %; Platelet Count 115 10^3/cmm (157-399); Red Blood Count 3.94 10^6/uL (3.85-5.65); White Blood Count 3.27 10^3/uL (3.29-11.43)
[2025-01-05 09:52] LABS: Alanine Aminotransferase 17 U/L (0-41); Albumin Level 4.5 g/dL (3.5-5.2); Alkaline Phosphatase 88 U/L (40-130); Anion Gap 15.0 (5-19); Aspartate Amino Transferase 12 U/L (0-40); Blood Urea Nitrogen 49 mg/dL (6-20); Calcium 8.5 mg/dL (8.5-10.5); Carbon Dioxide 21 mmol/L (22-29); Chloride 109 mmol/L (98-107); Globulin 2.5 g/dL (1.3-4.6); Glucose 97 mg/dL (65-115); Magnesium 2.0 mg/dL (1.7-2.3); Osmolality Calculated 303 mOsm/kg (285-295); Potassium 5.0 mmol/L (3.5-5.1); Sodium 140 mmol/L (136-145); Total Protein 7.0 g/dL (6.6-8.7)
== END 2025-01-05 08:25 | disposition home or self-care (01) ==
PROVIDERS: PCP Family Medicine; Visit Provider Hospitalist
DX: Z94.4 Liver transplant status (principal); E83.41 Hypermagnesemia; Z94.0 Kidney transplant status
CPT/HCPCS: 36415; 80053; 80197; 82977; 83735; 85025

== ENCOUNTER 2025-01-09 07:41 | Outpatient (CLI) | payer OTHER, SELFPAY ==
--- NOTE | 2025-01-09 07:50 | CT_ITS ---
WS: [id number] CT abdomen pelvis wo con [id number] REASON FOR EXAM: KIDNEY TRANSPLANT/PAIN IN THE ABDOMEN SINCE TRANSPLANT IV CONTRAST ADMINISTERED: None. TOTAL EXAM DLP: 406.[address] scans at [facility] use at least one of these dose optimization techniques: automated exposure control; mA and/or kV adjustment per patient size (includes targeted exams where dose is matched to clinical indication); or iterative reconstruction. TECHNIQUE: Multiple axial images without intravenous or oral contrast enhancement. Coronal and sagittal reconstructed directions. COMPARISON EXAMINATION: CT abdomen and pelvis without oral or intravenous contrast 10/09/2024. FINDINGS: Multiple surgical clips along the intrahepatic vena cava related to liver transplant. The liver is unchanged compared to the previous examination. The remainder of the abdomen is unchanged compared to the previous examination. No mass, adenopathy, focal fluid collection, or free fluid. No bowel abnormality. PELVIS: There is an elliptical fluid collection contiguous with the anterior peritoneum, just inferior to the right pelvic transplant kidney. This fluid collection now measures 2.4 x 2.0 x 3.7 cm which is a greater than 30% reduction in volume. No change in the attenuation of the fluid collection. The renal transplant demonstrates no hydronephrosis. No perinephric fluid is identified. No other free fluid or focal fluid collection is noted within the pelvis. CT/CT abdomen pelvis wo con [id number] IMPRESSION: Status post liver transplant. No acute findings in the upper abdomen. Small fluid collection in the pelvis related to the renal transplant as above. Significant reduction in volume since the previous study. No new findings.
== END 2025-01-09 07:42 | disposition home or self-care (01) ==
LOC: RAD 07:42
PROVIDERS: PCP Family Medicine; Visit Provider Internal Medicine
DX: Z48.22 Encounter for aftercare following kidney transplant (principal); N28.89 Other specified disorders of kidney and ureter; Z96.89 Presence of other specified functional implants
CPT/HCPCS: 74176

== ENCOUNTER 2025-01-12 08:07 | Outpatient (CLI) | payer OTHER, SELFPAY ==
[2025-01-12 09:22] LABS: Hematocrit 36.8 % (37-53); Hemoglobin 11.40 g/dL (11.27-16.99); Mean Corpuscular HGB Conc 31.0 g/dL (30-55); Mean Corpuscular Hemoglobin 29.3 pg (27-33); Mean Corpuscular Volume 94.6 fl (82-101); Nucleated Red Blood Cells % 0 %; Platelet Count 156 10^3/cmm (157-399); Red Blood Count 3.89 10^6/uL (3.85-5.65); White Blood Count 4.73 10^3/uL (3.29-11.43)
[2025-01-12 10:02] LABS: Creatinine Urine, Random 58 mg/dL (39-259); Microalbum Creatinine Ratio Ur 17 mg/dL (0-20)
[2025-01-12 10:04] LABS: Alanine Aminotransferase 15 U/L (0-41); Albumin Level 4.5 g/dL (3.5-5.2); Alkaline Phosphatase 101 U/L (40-130); Anion Gap 16.4 (5-19); Aspartate Amino Transferase 12 U/L (0-40); Blood Urea Nitrogen 47 mg/dL (6-20); Calcium 8.7 mg/dL (8.5-10.5); Carbon Dioxide 20 mmol/L (22-29); Chloride 109 mmol/L (98-107); Globulin 2.4 g/dL (1.3-4.6); Glucose 93 mg/dL (65-115); Magnesium 1.7 mg/dL (1.7-2.3); Osmolality Calculated 300 mOsm/kg (285-295); Potassium 6.4 mmol/L (3.5-5.1); Sodium 139 mmol/L (136-145); Total Protein 6.9 g/dL (6.6-8.7)
== END 2025-01-12 08:08 | disposition home or self-care (01) ==
PROVIDERS: PCP Family Medicine; Visit Provider Internal Medicine
DX: E83.41 Hypermagnesemia (principal); Z48.22 Encounter for aftercare following kidney transplant
CPT/HCPCS: 80053; 80197; 82044; 82977; 83735; 85025

== ENCOUNTER 2025-01-12 14:00 | Inpatient (IN) | payer OTHER, SELFPAY ==
[2025-01-12] VITALS (20 sets, daily range): BP systolic 133–165; BP diastolic 80–91; PULSE 72–90; RESP 16–29; TEMP 36.7–37; O2SAT 98–100; BMI 20.8
--- NOTE | 2025-01-12 14:02 | ECG_ITS ---
[facility] Date: 2025-01-12 Pat Name: Chase Rivero Department: Room: Gender: Male Liquor Bridge Operator: : 1975 Requested By: Joshua Moon Order Number: [id number] Demarcus MD: Ace Hinton M.D. Measurements Intervals [place] Rate: 78 P: 56 NM: 135 QRS: -23 QRSD: 79 T: 59 QT: 312 QTc: 357 Interpretive Statements SINUS RHYTHM BORDERLINE LEFT AXIS DEVIATION [QRS AXIS < -20] Compared to ECG 04/03/2024 17:51:40 Sinus tachycardia no longer present Electronically Signed On 01-12-2025 17:49:02 SURVEYOR CHAIN HELPER by Ace Hinton M.D. [email or web address]
--- OUTSIDE RECORDS SUMMARY | 2025-01-12 14:36 | XMS_ITS | Clinical Summary ---
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 Gender Identity Not on file Sexual Orientation [...] Flex Sig/CT Colonography Q 5 years 05/03/2019 ZOSTER VACCINE (1 of 2) 2024 INFLUENZA VACCINE (#1) 2024 Medical Devices Implanted Type Area Finishing Operator Device Identifier Shelf Expiration Date Model / Serial / Lot Ligator Band 4 Super 7 [id number] - [id number] Implanted:Qty : 4 on 08/01/2019 by Everett Kelly MD Other N/A: Esophagus [employer] 04/23/2020 [id number] / [id number] / [id number] Ligator Band 4 Super 7 [id number] - [id number] Implanted:Qty : 1 on 11/04/2019 by Boaz Zarate MD Other N/A: Esophagus [employer] 06/25/2020 [id number] / / [id number] Description:7 bands implante d Ligator Band 4 Super 7 [id number] - [id number] Implanted:Qty : 1 on 12/12/2019 by Boaz Zarate MD Other N/A: Esophagus [employer] 08/11/2020 [id number] / [id number] / [id number] Description:4 implanted 5 de ployed
--- OUTSIDE RECORDS SUMMARY | 2025-01-12 14:36 | XMS_ITS | Clinical Summary ---
Author Organization [facility] de Address [address] [place] [address] Phone Care Team Providers Care Master Steam Yacht Name Role Phone Unavailable Primary Care Provider [...] of 2) 2024 INFLUENZA VACCINE (#1) 2024 9, 11/23/2017, 11/23/2016 DTAP/TDAP/TD VACCINES (2 - T d or Tdap) 11/23/2026 11/23/2016 Medical Devices Implanted Type Area Cigar Head Piercer Device Identifier Shelf Expiration Date Model / Serial / Lot Ligator Band 4 Super 7 [id number] - [id number] Implanted:Qty: 4 on 08/01/2019 by Everett Kelly MD at [facility] Other N/A: Esophagus [employer] 04/23/2020 [id number] / [id number] / [id number] Ligator Band 4 Super 7 [id number] - [id number] Implanted:Qty: 1 on 11/04/2019 by Boaz Zarate MD at [facility] Other N/A: Esophagus [employer] 06/25/2020 [id number] / / [id number] Description:7 bands implante d Ligator Band 4 Super 7 [id number] - [id number] Implanted:Qty: 1 on 12/12/2019 by Boaz Zarate MD at [facility] Other N/A: Esophagus [employer] 08/11/2020 [id number] / [id number] / [id number] Description:4 implanted 5 de ployed Insurance [facility] [facility] [employer]
--- NOTE | 2025-01-12 14:44 | W.ED.RECABL ---
HPI - Recheck/Abnormal Lab/Rx General: Chief Complaint: Recheck/Abnormal Lab/Rx Stated Complaint: abnormal labs, high potassium Time Seen by Provider: 01/12/25 14:37 Source: patient Mode of arrival: ambulatory Limitations: no limitations History of Present Illness: 49-year-old male has a history of liver and kidney transplant in the past states that he had his labs drawn this morning and was sent here as he had had hyperkalemia. States he had no fatigue he had had some vomiting he stated 2 weeks ago but nothing recent he does have a mild headache denies any fevers. Related Data Home Medications ?Medication ?Instructions ?Recorded ?Confirmed metoclopramide HCl 5 mg tablet 5 mg PO BID PRN Nausea And Vomiting 02/06/24 05/13/24 midodrine 5 mg tablet 10 mg PO TID 02/06/24 05/13/24 rifaximin 550 mg tablet 550 mg PO BID 02/06/24 05/13/24 lactulose 10 gram/15 mL oral 15 ml PO BID PRN Stomach Upset 02/29/24 05/13/24 solution (Constulose) sucralfate 1 gram tablet 1 g PO BID 04/04/24 05/13/24 fluticasone 100 mcg-salmeterol 50 1 inh inhalation BID 05/05/24 05/13/24 mcg/dose blistr powdr for inhalation (Wixela Inhub) hydrocodone 5 mg-acetaminophen 325 1 tab PO DAILY PRN Pain 05/05/24 05/13/24 mg tablet trazodone 50 mg tablet 50 mg PO BEDTIME 05/05/24 05/13/24 Florinef 0.1 mg PO DAILY 05/13/24 05/13/24 Previous Rx's ?Medication ?Instructions ?Recorded ondansetron HCl 4 mg tablet 4 mg PO Q8H PRN Nausea And 01/02/24 Vomiting 30 days #30 tabs albuterol sulfate 90 mcg/actuation 2 inh inhalation Q6H PRN shortness 01/08/24 aerosol inhaler (Ventolin HFA) of breath or wheezing #6.7 grams pantoprazole 40 mg tablet,delayed 40 mg PO Q12H 30 days #60 tabs 03/04/24 release hydrocortisone 5 mg tablet 5 mg PO BID #60 tabs 05/07/24 tramadol 50 mg tablet 50 mg PO Q8H PRN pain #10 tabs 05/07/24 Allergies Allergy/AdvReac Type Severity Reaction Status Date / Time No Known Allergies Allergy Verified 05/12/24 16:14 PFSH ED PFSH: Medical History (Updated 01/12/25 @ 15:34 by Joshua Moon MD) Dvkyb-zh-pbtnbof kidney injury Esophageal varices Chronic hypotension Acute hyponatremia Chronic kidney disease Generalized weakness Anemia Alcoholic cirrhosis of liver Hepatorenal syndrome Cardiorenal syndrome SBP (spontaneous bacterial peritonitis) Acute hepatic failure Abdominal ascites Smoker Colitis Low oxygen saturation Enteropathy Smoking addiction Alcohol use disorder Thrombocytopenia Liver cirrhosis Hematuria Ascites due to alcoholic cirrhosis Abdominal pain 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 History of colon polyps Rectal polyp 10 and 15 cm, cecum biopsy Sigmoid colon polyp Seasonal allergies Splenomegaly Enterocolitis 2016 Surgical History (Updated 05/14/24 @ 00:00 by ELDA Sidhu) History of umbilical hernia repair Status post colonoscopy with polypectomy H/O esophagogastroduodenoscopy Vasectomy status H/O left inguinal hernia repair Family History Denies family history of Cancer Social History Smoking and tobacco/nicotine status: former use of tobacco/nicotine Alcohol intake: former Substance/Drug Use: never Lives independently: Yes Housing: House Marital status: 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 Physical Exam Const: COMMON NORMALS: no acute distress, patient oriented x3 and healthy appearing HENMT: COMMON NORMALS: normocephalic and atraumatic HEAD & SCALP: normocephalic and atraumatic Neck/C-Spine: COMMON NORMALS: full ROM and supple Chest: COMMONS NORMALS: normal inspection of the chest Resp: COMMON NORMALS: normal respiratory effort, No retractions, No use of accessory muscles and clear to auscultation bilaterally AUSCULTATION: clear to auscultation bilaterally Cardio: COMMON NORMALS: regular rate, regular rhythm and No murmurs present (Cardio) RATE: regular rate RHYTHM: regular rhythm Extremity: COMMON NORMALS: normal to inspection and full ROM Neuro: COMMON NORMALS: patient oriented x3, moves all extremities and no focal motor deficits Psych: COMMON NORMALS: mental status grossly normal, Normal thought process present and cooperative THOUGHT PROCESS: Normal thought process present Skin: COMMON NORMALS: no rashes or lesions noted and no wounds GENERAL SKIN EXAM: no rashes or lesions noted Course Vital Signs: Vital signs: Vital Signs Temperature 98.6 F 01/12/25 14:11 Pulse Rate 88 01/12/25 14:11 Respiratory Rate 18 01/12/25 15:06 Blood Pressure 165/85 01/12/25 14:11 Pulse Oximetry 99 01/12/25 15:06 Oxygen Delivery Me thod Room Air 01/12/25 15:06 MDM - Recheck/Abnormal Lab/Rx Medical Decision Making 49-year-old male presented here and lab draws morning showed his potassium is 6.4 was sent to the ER. He has no complaints here besides a mild headache potassium here was 6.2. Creatinine is 2.4. He has no EKG changes I did interpret EKG myself showed normal sinus rhythm heart rate [address] elevation QRS 79 QTc 312. Will give him insulin along with D50 here. Will give him 1 L fluid bolus. I spoke to hospitalist Dr. Mckeon and will admit for observation Medical Records I reviewed the patient's medical records. Lab Data I reviewed the patient's lab results. 01/12/25 14:42 01/12/25 14:42 Laboratory Results WBC 4.74 10^3/uL (3.29-11.43) 01/12/25 14:42 RBC 3.54 10^6/uL (3.85-5.65) L 01/12/25 14:42 Hgb 10.50 g/dL (11.27-16.99) L 01/12/25 14:42 Hct 34.3 % (37-53) L 01/12/25 14:42 MCV 96.9 fl (82-101) 01/12/25 14:42 MCH 29.7 pg (27-33) 01/12/25 14:42 MCHC 30.6 g/dL (30-55) 01/12/25 14:42 RDW 13.9 % (12.1-15.1) 01/12/25 14:42 Plt Count 137 10^3/cmm (157-399) L 01/12/25 14:42 MPV 9.0 fL (7.4-10.4) 01/12/25 14:42 Neut % (Auto) 77.7 % 01/12/25 14:42 Lymph % (Auto) 9.3 % 01/12/25 14:42 [place] % (Auto) 11.0 % 01/12/25 14:42 Eos % (Auto) 0.6 % 01/12/25 14:42 Baso % (Auto) 0.6 % 01/12/25 14:42 Neut # (Auto) 3.68 10^3/uL (1.8-7.7) 01/12/25 14:42 Lymph # (Auto) 0.4 10^3/uL (0.8-4.8) L 01/12/25 14:42 [place] # (Auto) 0.5 10^3/uL (0.2-0.9) 01/12/25 14:42 Eos # (Auto) 0.0 10^3/uL (0.0-0.8) 01/12/25 14:42 Baso # (Auto) 0.0 10^3/uL (0.0-0.1) 01/12/25 14:42 Nucleated RBC % (auto) 0 % 01/12/25 14:42 Nucleated RBCs # 0.0 /100WBC 01/12/25 14:42 Sodium 138 mmol/L (136-145) 01/12/25 14:42 Potassium 6.2 mmol/L (3.5-5.1) H 01/12/25 14:42 Chloride 110 mmol/L (98-107) H 01/12/25 14:42 Carbon Dioxide 20 mmol/L (22-29) L 01/12/25 14:42 Anion Gap 14.2 (5-19) 01/12/25 14:42 BUN 44 mg/dL (6-20) H 01/12/25 14:42 Creatinine 2.4 mg/dL (0.7-1.2) H 01/12/25 14:42 GFR Calculation 28.8 mL/min (90-130) L 01/12/25 14:42 Glucose 119 mg/dL (65-115) H 01/12/25 14:42 Calculated Osmolality 298 mOsm/kg (285-295) H 01/12/25 14:42 Calcium 8.4 mg/dL (8.5-10.5) L 01/12/25 14:42 Phosphorus 3.1 mg/dL (2.5-4.5) 01/12/25 14:42 Magnesium 1.5 mg/dL (1.7-2.3) L 01/12/25 14:42 Total Bilirubin 0.2 mg/dL (0.15-1.2) 01/12/25 14:42 AST 12 U/L (0-40) 01/12/25 14:42 ALT 15 U/L (0-41) 01/12/25 14:42 Alkaline Phosphatase 102 U/L (40-130) 01/12/25 14:42 Total Protein 6.4 g/dL (6.6-8.7) L 01/12/25 14:42 Albumin 4.3 g/dL (3.5-5.2) 01/12/25 14:42 Globulin 2.1 g/dL (1.3-4.6) 01/12/25 14:42 Urine Color Yellow (Yellow) 01/12/25 14:40 Urine Appearance Clear (CLEAR) 01/12/25 14:40 Urine pH 5.0 (5-7) 01/12/25 14:40 Ur Specific [place] 1.009 (1.005-1.030) 01/12/25 14:40 Urine Protein Negative (Negative) 01/12/25 14:40 Urine Glucose (UA) Negative (Normal) 01/12/25 14:40 Urine Ketones Negative (Negative) 01/12/25 14:40 Urine Blood Negative (Negative) 01/12/25 14:40 Urine Nitrate Negative (Negative) 01/12/25 14:40 Urine Bilirubin Negative (Negative) 01/12/25 14:40 Urine Urobilinogen 0.2 mg/dL (Negative) 01/12/25 14:40 Ur Leukocyte Esterase Negative (Negative) 01/12/25 14:40 Urine RBC 0-2 /hpf (0-2) 01/12/25 14:40 Urine WBC 0-5 /hpf (0-5) 01/12/25 14:40 Ur Squamous Epith Cells 0-5 /hpf (0-5) 01/12/25 14:40 Amorphous Sediment Not Reportable 01/12/25 14:40 Urine Bacteria None seen /hpf (NONE) 01/12/25 14:40 Hyaline Casts 3.30 /lpf 01/12/25 14:40 All radiology interpretation(s) finalized by discharge EKG Data EKG 1: I personally reviewed and interpreted this EKG as follows: EKG interpretation date: 01/12/25 EKG interpretation time: 14:16 Interpretation: nsr hr [address] elevation qrs 79 qtc 312 Discharge Plan Discharge Patient Disposition: Placed in Observation Clinical Impression: Hyperkalemia Coding Level of Care Code ED Manager Of Loss Prevention Operations for Jess López
[2025-01-12 14:50] LABS: Hematocrit 34.3 % (37-53); Hemoglobin 10.50 g/dL (11.27-16.99); Mean Corpuscular HGB Conc 30.6 g/dL (30-55); Mean Corpuscular Hemoglobin 29.7 pg (27-33); Mean Corpuscular Volume 96.9 fl (82-101); Nucleated Red Blood Cells % 0 %; Platelet Count 137 10^3/cmm (157-399); Red Blood Count 3.54 10^6/uL (3.85-5.65); White Blood Count 4.74 10^3/uL (3.29-11.43)
[2025-01-12 14:50] LABS: Glucose Urine UA Negative (Normal); Nitrate Urine Negative (Negative); Specific Gravity, Urine 1.009 (1.005-1.030)
[2025-01-12 14:55] LABS: Add Urine Microscopic? YES
[2025-01-12 15:08] LABS: Alanine Aminotransferase 15 U/L (0-41); Albumin Level 4.3 g/dL (3.5-5.2); Alkaline Phosphatase 102 U/L (40-130); Anion Gap 14.2 (5-19); Aspartate Amino Transferase 12 U/L (0-40); Blood Urea Nitrogen 44 mg/dL (6-20); Calcium 8.4 mg/dL (8.5-10.5); Carbon Dioxide 20 mmol/L (22-29); Chloride 110 mmol/L (98-107); Globulin 2.1 g/dL (1.3-4.6); Glucose 119 mg/dL (65-115); Magnesium 1.5 mg/dL (1.7-2.3); Osmolality Calculated 298 mOsm/kg (285-295); Potassium 6.2 mmol/L (3.5-5.1); Sodium 138 mmol/L (136-145); Total Protein 6.4 g/dL (6.6-8.7)
--- NOTE | 2025-01-12 15:51 | PC.PHAR ---
Addendum entered by Ciera Dumont 01/12/25 16:18: Pts' list on his phone is a little bit different than what is on his [facility] list. Binta Tellez verified pt list 01/12/25. Acyclovir 200mg bid, Cyclobenzaprine 10mg tid prn, Lidocaine 5 patch daily, Magnesium oxide 400mg daily and Sodium Bicarb 650mg bid were not on pts phone list. Original Note: Pt is [facility] changes since transplant surgery.
[2025-01-12] MEDS: insulin regular-human 100 units/1 mL 10 UNIT IVP (16:49)
--- NOTE | 2025-01-12 17:00 | USR_ITS ---
PROCEDURE INFORMATION: Exam: US Retroperitoneal, Complete, Kidneys, Aorta, IVC. Exam date and time: 01/12/2025 6:55 PM Age: 49 years old Clinical indication: Condition or disease; Other: Carlitos TECHNIQUE: Imaging protocol: Real-time ultrasound of the retroperitoneum with image documentation. Complete exam focused on the bilateral kidneys, aorta, and inferior vena cava. COMPARISON: [place] paracentesis abd w [id number] 05/12/2024 12:00 PM FINDINGS: Right kidney: No stones. No hydronephrosis. Left kidney: No stones. No hydronephrosis. Aorta: Normal. No aneurysm. Common iliac arteries: Normal. Inferior vena cava: Normal. Other vasculature: Segmental artery Doppler waveforms appear normal. The anastomoses appear normal. Transplants: The transplant kidney measures 8.6 x 5.7 x 4.4 cm in size with a cortical thickness of 12 mm. US/US renal BI* [id number] IMPRESSION: No acute findings.
--- NOTE | 2025-01-12 17:08 | PM.HP ---
Providers/Chief Complaint Admitting Physician: Jefferson Mckeon Primary Care Provider: Alia Sanchez MD Chief Complaint: abnormal labs, high potassium History of Present Illness Chase Rivero is a 49 year old male with a past medical history of kidney and liver transplant, through [facility], on CellCept, tacrolimus, prednisone who presents to [facility] due to concerns for hyperkalemia and elevated creatinine. Currently patient is alert oriented x 3, follow commands, he has felt sick for the last few days, no fevers, does report chronic chills, no abdominal pain, no diarrhea, no dysuria, no flank pain Medications/Allergies Home Medications ?Medication ?Instructions ?Recorded ?Confirmed ?Last Taken ?Type ondansetron HCl 4 mg tablet 4 mg PO Q8H PRN Nausea And 01/02/24 01/12/25 05/11/24 Rx Vomiting 30 days #30 tabs fluticasone 100 mcg-salmeterol 50 1 inh inhalation BID 05/05/24 01/12/25 01/12/25 History mcg/dose blistr powdr for inhalation (Wixela Inhub) acetaminophen 500 mg tablet 1,000 mg PO Q6H PRN Pain 01/12/25 01/12/25 Unknown History (Tylenol Extra Strength) acyclovir 200 mg capsule 200 mg PO BID 01/12/25 01/12/25 Unknown History albuterol sulfate 90 mcg/actuation 2 inh inhalation Q4H PRN shortness 01/12/25 01/12/25 Unknown History aerosol inhaler (Ventolin HFA) of breath or wheezing aspirin 81 mg tablet,delayed 81 mg PO QAM 01/12/25 01/12/25 01/12/25 History release cholecalciferol (vitamin D3) 50 50 mcg PO DAILY 01/12/25 01/12/25 01/12/25 History mcg (2,000 unit) tablet (Vitamin D3) cyclobenzaprine 10 mg tablet 10 mg PO TID PRN Muscle Spasm 01/12/25 01/12/25 Unknown History gabapentin 100 mg capsule 200 mg PO QPM 01/12/25 01/12/25 01/11/25 History lidocaine 5 % topical patch 1 patch topical DAILY PRN Pain 01/12/25 01/12/25 Unknown History mycophenolate sodium 360 mg 360 mg PO BID 01/12/25 01/12/25 01/12/25 History tablet,delayed release pantoprazole 40 mg tablet,delayed 40 mg PO QAM 01/12/25 01/12/25 01/12/25 History release prednisone 5 mg tablet 5 mg PO DAILY 01/12/25 01/12/25 01/12/25 History sennosides 8.6 mg-docusate sodium 1 tab-cap PO DAILY PRN Constipation 01/12/25 01/12/25 Unknown History 50 mg tablet (Senokot-S) sodium bicarbonate 650 mg tablet 650 mg PO BID 01/12/25 01/12/25 Unknown History sulfamethoxazole 800 See Rx Instructions .Route .COMPLEX 01/12/25 01/12/25 01/12/25 History mg-trimethoprim 160 mg tablet (Bactrim DS) tacrolimus 1 mg capsule, See Rx Instructions .Route .COMPLEX 01/12/25 01/12/25 01/12/25 History immediate-release tramadol 50 mg tablet 50 mg PO Q6H PRN pain 01/12/25 01/12/25 Unknown History Allergies Allergy/AdvReac Type Severity Reaction Status Date / Time No Known Allergies Allergy Verified 05/12/24 16:14 PFSH Acute PFSH: Medical History Wknhs-ox-obobrje kidney injury Esophageal varices Chronic hypotension Acute hyponatremia Chronic kidney disease Generalized weakness Anemia Alcoholic cirrhosis of liver Hepatorenal syndrome Cardiorenal syndrome SBP (spontaneous bacterial peritonitis) Acute hepatic failure Abdominal ascites Smoker Colitis Low oxygen saturation Enteropathy Smoking addiction Alcohol use disorder Thrombocytopenia Liver cirrhosis Hematuria Ascites due to alcoholic cirrhosis Abdominal pain 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 History of colon polyps Rectal polyp 10 and 15 cm, cecum biopsy Sigmoid colon polyp Seasonal allergies Splenomegaly Enterocolitis 2016 Surgical History History of umbilical hernia repair Status post colonoscopy with polypectomy H/O esophagogastroduodenoscopy Vasectomy status H/O left inguinal hernia repair Family History Denies family history of Cancer Social History Smoking and tobacco/nicotine status: former use of tobacco/nicotine Alcohol intake: former Substance/Drug Use: never Lives independently: Yes Housing: House 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 status: 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 Vitals/I&O/Wt Last Vital Signs Temp 98.1 F 01/12/25 16:28 Pulse 79 01/12/25 16:25 Resp 27 H 01/12/25 16:25 BP 150/80 01/12/25 16:25 Pulse Ox 100 01/12/25 16:25 O2 Del Method Room Air 01/12/25 16:25 01/12/25 01/12/25 01/12/25 06:59 14:59 22:59 Intake Total 250 / 250 Balance 250 / 250 Weight last 48 hrs Weight 89.6 kg Weight 62.142 kg Physical Exam Const: COMMON NORMALS: no acute distress and patient oriented x3 Eye: COMMON NORMALS: Equal, round and reactive pupils present and EOMs intact bilaterally Resp: COMMON NORMALS: normal respiratory effort, No retractions, No use of accessory muscles and clear to auscultation bilaterally AUSCULTATION: clear to auscultation bilaterally Cardio: COMMON NORMALS: no JVD, regular rate, regular rhythm, S1 normal heart sound present and S2 normal heart sound present RATE: regular rate RHYTHM: regular rhythm HEART SOUNDS: S1 normal heart sound present and S2 normal heart sound present GI: COMMON NORMALS: Normal to inspection, nondistended, normoactive bowel sounds present, Soft to palpation and non-tender Extremity: COMMON NORMALS: no pedal edema Neuro: COMMON NORMALS: patient oriented x3, CN's II-XII intact bilaterally and moves all extremities Psych: COMMON NORMALS: mental status grossly normal Data 01/12/25 14:42 01/12/25 14:42 A&P Assessment and plan 1. Hyperkalemia: 2. Kidney transplant status: 3. Liver transplant recipient: Plan: Hyperkalemia - Will receive insulin 10 units IV push -D10 - IV fluids - Telemetry monitoring - No chest pain, no lightheadedness - Monitor BMP every 4 hours LAQUITA - With history of kidney transplant - IV fluids - Check tacrolimus levels - Nephrology consulted - Renal ultrasound History of kidney transplant, liver transplant - Continue CellCept - Continue tacrolimus - Continue prednisone - I have reached out to patient's transplant team at [facility] PDMP PDMP Reviewed: Not Reviewed Attestations Medical Necessity Statement*: Patient requires hospitalization for hyperkalemia, LAQUITA, inpatient, greater than 2 midnights Diagnoses Hyperkalemia E87.5 Kidney transplant status Z94.0 Liver transplant recipient Z94.4
--- NOTE | 2025-01-12 17:17 | PC.NURSE ---
Addendum entered by Maria Carlson RN 01/12/25 17:46: provider is notified that patient is not currently taking the acyclovir. Per provider hold. Original Note: Order for dextrose 10% 250 ml, the 3rd bag, provider is messaged to confirm if he wanted. Provider confirmed 2 bags only. 3rd bag is not needed.
[2025-01-12] MEDS: calcium gluconate 0.9% NaCL 1 GM/50 ML PREMIX IV (17:39)
[2025-01-12] MEDS: pantoprazole 40 mg SDV IVP (17:45)
[2025-01-12 17:49] LABS: Procalcitonin 0.10 ng/mL (0-0.5); Thyroid Stimulating Hormone 1.81 uIU/mL (0.27-4.20)
[2025-01-12 18:01] LABS: Cholesterol 154 mg/dL (0-200); HDL Cholesterol 43 mg/dL (60-100); Triglycerides 156 mg/dL (0-150)
--- OUTSIDE RECORDS SUMMARY | 2025-01-12 18:03 | XMS_ITS | Clinical Summary ---
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 Gender Identity Not on file Sexual Orientation [...] (#1) 2024 Medical Devices Implanted Type Area Director [employer] Communications Device Identifier Shelf Expiration Date Model / Serial / Lot Ligator Band 4 Super 7 [id number] - [id number] Implanted:Qty : 4 on 08/01/2019 by Everett Kelly MD Other N/A: Esophagus [employer] 04/23/2020 [id number] / [id number] / [id number] Ligator Band 4 Super 7 [id number] - [id number] Implanted:Qty : 1 on 11/04/2019 by Boaz Zarate MD Other N/A: Esophagus [employer] 06/25/2020 [id number] / / [id number] Description:7 bands implante d Ligator Band 4 Super 7 [id number] - [id number] Implanted:Qty : 1 on 12/12/2019 by Boaz Zarate MD Other N/A: Esophagus [employer] 08/11/2020 [id number] / [id number] / [id number] Description:4 implanted 5 de ployed
--- OUTSIDE RECORDS SUMMARY | 2025-01-12 18:03 | XMS_ITS | Clinical Summary ---
Author Organization [facility] de Address [address] [place] [address] Phone Care Team Providers Care Plate Keeper Name Role Phone Unavailable Primary Care Provider [...] 11/23/2026 11/23/2016 Medical Devices Implanted Type Area Telecommunications Line Installer Device Identifier Shelf Expiration Date Model / Serial / Lot Ligator Band 4 Super 7 [id number] - [id number] Implanted:Qty: 4 on 08/01/2019 by Everett Kelly MD at [facility] Other N/A: Esophagus [employer] 04/23/2020 [id number] / [id number] / [id number] Ligator Band 4 Super 7 [id number] - [id number] Implanted:Qty: 1 on 11/04/2019 by Boaz Zarate MD at [facility] Other N/A: Esophagus [employer] 06/25/2020 [id number] / / [id number] Description:7 bands implante d Ligator Band 4 Super 7 [id number] - [id number] Implanted:Qty: 1 on 12/12/2019 by Boaz Zarate MD at [facility] Other N/A: Esophagus [employer] 08/11/2020 [id number] / [id number] / [id number] Description:4 implanted 5 de ployed Insurance [facility] [employer] [facility] [employer]
--- NOTE | 2025-01-12 18:26 | PM.CONSULT ---
Providers/Reason For Consult Consulting Physician/Specialty*: kommana/Nephrology Reason for Consult*: laquita post renal transplant Attending Physician: Jefferson Mckeon Primary Care Provider: Alia Sanchez MD History of Present Illness History of Present Illness Chase Rivero is a 49 year old male patient is a 49-year-old male with past medical history of liver cirrhosis and renal failure--> underwent liver kidney transplant at [facility] in April 2024. Patient currently on prednisone 5 mg daily, Myfortic 360 mg twice daily and tacrolimus 6 mg in the morning and 5 mg in the evening for immunosuppression. Patient was sent to the ER due to abnormal labs including hyperkalemia and LAQUITA. On review of labs , post transplant patient creatinine is at 1.1 range but has progressively rising in the last 3 to 4 months and creatinine is in the 2.4-2.8 range now. Patient has hyperkalemia with a potassium of 6.1. Recently his tacrolimus level was noted to be elevated at 15.3 and the dose was decreased. He reports episode of nausea and diarrhea and poor p.o. intake 1 week prior but that has been slowly improving. Review of Systems Narrative: Negative Medications/Allergies Home Medications ?Medication ?Instructions ?Recorded ?Confirmed ?Last Taken ?Type ondansetron HCl 4 mg tablet 4 mg PO Q8H PRN Nausea And 01/02/24 01/12/25 05/11/24 Rx Vomiting 30 days #30 tabs fluticasone 100 mcg-salmeterol 50 1 inh inhalation BID 05/05/24 01/12/25 01/12/25 History mcg/dose blistr powdr for inhalation (Wixela Inhub) acetaminophen 500 mg tablet 1,000 mg PO Q6H PRN Pain 01/12/25 01/12/25 Unknown History (Tylenol Extra Strength) acyclovir 200 mg capsule 200 mg PO BID 01/12/25 01/12/25 Unknown History albuterol sulfate 90 mcg/actuation 2 inh inhalation Q4H PRN shortness 01/12/25 01/12/25 Unknown History aerosol inhaler (Ventolin HFA) of breath or wheezing aspirin 81 mg tablet,delayed 81 mg PO QAM 01/12/25 01/12/25 01/12/25 History release cholecalciferol (vitamin D3) 50 50 mcg PO DAILY 01/12/25 01/12/25 01/12/25 History mcg (2,000 unit) tablet (Vitamin D3) cyclobenzaprine 10 mg tablet 10 mg PO TID PRN Muscle Spasm 01/12/25 01/12/25 Unknown History gabapentin 100 mg capsule 200 mg PO QPM 01/12/25 01/12/25 01/11/25 History lidocaine 5 % topical patch 1 patch topical DAILY PRN Pain 01/12/25 01/12/25 Unknown History mycophenolate sodium 360 mg 360 mg PO BID 01/12/25 01/12/25 01/12/25 History tablet,delayed release pantoprazole 40 mg tablet,delayed 40 mg PO QAM 01/12/25 01/12/25 01/12/25 History release prednisone 5 mg tablet 5 mg PO DAILY 01/12/25 01/12/25 01/12/25 History sennosides 8.6 mg-docusate sodium 1 tab-cap PO DAILY PRN Constipation 01/12/25 01/12/25 Unknown History 50 mg tablet (Senokot-S) sodium bicarbonate 650 mg tablet 650 mg PO BID 01/12/25 01/12/25 Unknown History sulfamethoxazole 800 See Rx Instructions .Route .COMPLEX 01/12/25 01/12/25 01/12/25 History mg-trimethoprim 160 mg tablet (Bactrim DS) tacrolimus 1 mg capsule, See Rx Instructions .Route .COMPLEX 01/12/25 01/12/25 01/12/25 History immediate-release tramadol 50 mg tablet 50 mg PO Q6H PRN pain 01/12/25 01/12/25 Unknown History Allergies Allergy/AdvReac Type Severity Reaction Status Date / Time No Known Allergies Allergy Verified 05/12/24 16:14 Current Medications Generic Name Dose Route Start Last Admin Trade Name Freq PRN Reason Stop Dose Admin Gabapentin 200 mg 01/12/25 17:00 01/12/25 17:45 Gabapentin 100 Mg Capsule PO 200 mg QPM CHRIS Administration Sodium Bicarbonate 150 meq/ 1,150 mls @ 100 mls/hr 01/12/25 09:45 01/12/25 18:18 Dextrose IV 100 mls/hr .[id number] CHRIS Administration Pantoprazole Sodium 40 mg 01/12/25 17:15 01/12/25 17:45 Pantoprazole 40 Mg Sdv IVP 40 mg Q24H CHRIS Administration PFSH Acute PFSH: Medical History (Updated 01/12/25 @ 18:31 by Elvi Bar MD) [id number] kidney injury Esophageal varices Chronic hypotension Acute hyponatremia Chronic kidney disease Generalized weakness Anemia Alcoholic cirrhosis of liver Hepatorenal syndrome Cardiorenal syndrome SBP (spontaneous bacterial peritonitis) Acute hepatic failure Abdominal ascites Smoker Colitis Low oxygen saturation Enteropathy Smoking addiction Alcohol use disorder Thrombocytopenia Liver cirrhosis Hematuria Ascites due to alcoholic cirrhosis Abdominal pain 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 History of colon polyps Rectal polyp 10 and 15 cm, cecum biopsy Sigmoid colon polyp Seasonal allergies Splenomegaly Enterocolitis 2016 Surgical History (Updated 01/12/25 @ 17:11 by Fortino Wagoner MD) History of umbilical hernia repair Status post colonoscopy with polypectomy H/O esophagogastroduodenoscopy Vasectomy status H/O left inguinal hernia repair Family History Denies family history of Cancer Social History Smoking and tobacco/nicotine status: former use of tobacco/nicotine Alcohol intake: former Substance/Drug Use: never Lives independently: Yes Housing: House 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 Vitals/I&O/Wt Last Vital Signs Temp 98.1 F 01/12/25 16:28 Pulse 77 01/12/25 17:10 Resp 27 H 01/12/25 17:10 BP 150/80 01/12/25 17:10 Pulse Ox 100 01/12/25 16:40 O2 Del Method Room Air 01/12/25 16:26 01/12/25 01/12/25 01/12/25 06:59 14:59 22:59 Intake Total 1100 / 1100 Balance 1100 / 1100 Weight last 48 hrs Weight 89.6 kg Weight 62.142 kg Physical Exam Narrative: Patient is awake alert, no distress on room air No JVD PERRLA S1-S2 regular rate and rhythm Lungs with decreased breath sounds bilaterally Abdomen soft nontender Extremities no pedal edema Skin no rash Data 01/12/25 14:42 01/12/25 14:42 A&P Assessment and plan 1. Kidney transplant status: 1. Acute kidney injury: Baseline creatinine recently seems to be in the 1.8-2 range. Current LAQUITA most likely prerenal due to recent episode of nausea vomiting and diarrhea and poor p.o. intake. Also concern for tacrolimus nephrotoxicity due to recent FK level was 15.3 but dose has been decreased since. Repeat level pending. No hydronephrosis on CT scan. UA-no protein no blood, no microscopic hematuria. Patient has hyperkalemia and metabolic acidosis. Will start patient on bicarbonate drip and monitor. Also patient family to bring Lokelma from home and will restart that. -Await FK levels, check urine electrolytes and transplant kidney ultrasound - Holding Bactrim, 2. Kidney and liver transplant status: In April 2024: -Holding Myfortic until acute infection ruled out, per transplant nephrology-Will give tacrolimus 4 mg today and await FK level, continue prednisone 5 mg daily - Noted progressive rising creatinine since June 2024, may require renal biopsy. 3. Hyperkalemia: Medical management with Lokelma as above, low potassium diet 4. 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 Patient seen using audiovisual cart. Time spent 45 minutes. 2. Acute kidney injury: PDMP PDMP Reviewed: Not Reviewed Consult Attestations Medical Necessity Statement: per guillermo Coding Level of Care Code Acute Code for Chg Fwd Diagnoses Kidney transplant status Z94.0 Acute kidney injury N17.9
[2025-01-12 18:36] LABS: Anion Gap 14.1 (5-19); Blood Urea Nitrogen 42 mg/dL (6-20); Calcium 8.4 mg/dL (8.5-10.5); Carbon Dioxide 18 mmol/L (22-29); Chloride 111 mmol/L (98-107); Glucose 90 mg/dL (65-115); Osmolality Calculated 294 mOsm/kg (285-295); Potassium 6.1 mmol/L (3.5-5.1); Sodium 137 mmol/L (136-145)
--- NOTE | 2025-01-12 19:22 | PC.NURSE ---
Per provider tacrolimus 4mg PO should by taken at 2100. Patient takes at 0900 and 2100 daily. Provider okay'd. Patient will be taking home medication that he has with him per provider.
[2025-01-12 23:51] LABS: Anion Gap 14.8 (5-19); Blood Urea Nitrogen 39 mg/dL (6-20); Calcium 8.3 mg/dL (8.5-10.5); Carbon Dioxide 22 mmol/L (22-29); Chloride 108 mmol/L (98-107); Glucose 155 mg/dL (65-115); Osmolality Calculated 301 mOsm/kg (285-295); Potassium 5.8 mmol/L (3.5-5.1); Sodium 139 mmol/L (136-145)
[2025-01-13 00:47] VITALS: BP 133/83; PULSE 84; RESP 17; TEMP 36.9
[2025-01-13 03:23] VITALS: BP 148/95; PULSE 74; RESP 17; TEMP 36.6; O2SAT 98
[2025-01-13 03:24] LABS: Hematocrit 31.0 % (37-53); Hemoglobin 10.00 g/dL (11.27-16.99); Mean Corpuscular HGB Conc 32.3 g/dL (30-55); Mean Corpuscular Hemoglobin 30.4 pg (27-33); Mean Corpuscular Volume 94.2 fl (82-101); Nucleated Red Blood Cells % 0 %; Platelet Count 148 10^3/cmm (157-399); Red Blood Count 3.29 10^6/uL (3.85-5.65); White Blood Count 4.92 10^3/uL (3.29-11.43)
[2025-01-13 03:50] LABS: Alanine Aminotransferase 13 U/L (0-41); Albumin Level 3.8 g/dL (3.5-5.2); Alkaline Phosphatase 98 U/L (40-130); Anion Gap 12.3 (5-19); Aspartate Amino Transferase 12 U/L (0-40); Blood Urea Nitrogen 38 mg/dL (6-20); Calcium 8.1 mg/dL (8.5-10.5); Carbon Dioxide 26 mmol/L (22-29); Chloride 106 mmol/L (98-107); Globulin 1.7 g/dL (1.3-4.6); Glucose 129 mg/dL (65-115); Magnesium 1.4 mg/dL (1.7-2.3); Osmolality Calculated 299 mOsm/kg (285-295); Potassium 5.3 mmol/L (3.5-5.1); Sodium 139 mmol/L (136-145); Total Protein 5.5 g/dL (6.6-8.7)
[2025-01-13] MEDS: magnesium sulfate premix 2 GM/50 ML PIGGYBACK IV (05:06)
[2025-01-13 06:23] VITALS: BP 148/95; PULSE 74; RESP 17; TEMP 36.6
[2025-01-13] MEDS: ondansetron 2 mg/ML SDV 2 mL 4 MG IVP (06:32)
[2025-01-13 06:41] LABS: Anion Gap 13.8 (5-19); Blood Urea Nitrogen 36 mg/dL (6-20); Calcium 8.1 mg/dL (8.5-10.5); Carbon Dioxide 25 mmol/L (22-29); Chloride 108 mmol/L (98-107); Glucose 118 mg/dL (65-115); Osmolality Calculated 303 mOsm/kg (285-295); Potassium 4.8 mmol/L (3.5-5.1); Sodium 142 mmol/L (136-145)
--- NOTE | 2025-01-13 07:36 | PC.NURSE ---
Patient complaining of headache and nausea. Patient stated that tylenol did not help earlier. Offered morphine but patient is not wanting that strong of pain meds. Notified Dr. Marcelino MD to place orders.
[2025-01-13 08:00] VITALS: BP 155/98; PULSE 84; RESP 21; TEMP 36.6; O2SAT 100
[2025-01-13] MEDS: metoclopramide 5 mg/mL SDV 2 mL IVP (08:37)
--- NOTE | 2025-01-13 08:48 | PC.NURSE ---
Patient left by EMS to Dr. Nathaniel Seay is excepting., report called over night. left at 0849.
--- NOTE | 2025-01-13 09:20 | PC.NURSE ---
EMS is called per Dr. Wagoner on the directions on his morning medications doses.
--- NOTE | 2025-01-13 17:40 | PM.DCS ---
Discharge Providers Date of Admission: 01/12/25 15:43 Date of Discharge: January 13, 2025 Attending Provider at Admission: Jefferson Mckeon Attending Provider at Discharge: Fortino Wagoner MD Primary Care Provider: Alia Sanchez MD Diagnoses at Discharge Discharge Diagnosis 1. Kidney transplant status: 2. Acute kidney injury: Reason for Visit Reason for Visit: abnormal labs, high potassium Hospital Course Hospital Course Romel Rivero is a 49 year old male with a past medical history of kidney and liver transplant, through [facility], on CellCept, tacrolimus, prednisone who presents to [facility] due to concerns for hyperkalemia and elevated creatinine. Currently patient is alert oriented x 3, follow commands, he has felt sick for the last few days, no fevers, does report chronic chills, no abdominal pain, no diarrhea, no dysuria, no flank pain Hyperkalemia 4.8 - Will receive insulin 10 units IV push - IV fluids -lokelma - Telemetry monitoring - No chest pain, no lightheadedness - Monitor BMP every 4 hours LAQUITA 2.0 - With history of kidney transplant - IV fluids - Check tacrolimus levels - Nephrology consulted - Renal ultrasound History of kidney transplant, liver transplant - I have reached out to patient's transplant team at [facility] - Spoke to patient's transplant team at [facility] - Discussed patient's hyperkalemia, LAQUITA - Patient's physician Dr. Marlo Armstrong recommended for patient to be transferred to [facility] for urgent evaluation -Worry of tacrolimus toxicity, last tacrolimus level was 15.3 - He recommended for me to check if patient is having a tremor, if it is decreased tacrolimus level to 4 mg tonight - I spoke to Chase he does report having a tremor, he has had it for the last few weeks, it has decreased in severity so as per instructions from [facility] transplant team will decrease his tacrolimus to 4 mg tonight - Patient will hopefully be transferred to [facility] if not if he is here until tomorrow morning, I am going to reach out to his team at [facility] tomorrow morning about dosing his tacrolimus tomorrow - He recommended for me to hold the mycophenolate tonight, will resume mycophenolate based upon my discussion with [facility] in the morning, if patient is here in the morning - Dr. Armstrong wants to do a kidney biopsy so he wants me to hold the aspirin - Will hold the Bactrim for consideration of Bactrim toxicity - He recommended Lokelma unfortunately do not carry Lokelma here in the hospital, but his is able to bring Lokelma in from outside the hospital, as he has an at home - Will resume Lokelma as soon as she brings it to the hospital 5 g 3 times daily - Patient will be transferred to [facility] - Spoke to patient and over the phone about plan on transferring to [facility], discussed risks and benefits, patient and voiced understanding, all questions answered, agreed to proceed Patient was seen the morning of 01/13/2025 before transfer - He is feeling nauseous, has a headache - No chest pain, palpitations, shortness of breath -Given Reglan for nausea, tramadol for headache, transferred to [facility] - Reached out to [facility] transfer center spoke to Dr. Marlo Armstrong - He recommended for us to continue to hold mycophenolate - Decrease tacrolimus to 5 mg this morning - Patient had already left before [facility] called back, but nursing staff have contacted EMS crew and they will administer medication while he is on route Physical Exam Const: COMMON NORMALS: no acute distress and patient oriented x3 Resp: COMMON NORMALS: normal respiratory effort, No retractions, No use of accessory muscles and clear to auscultation bilaterally AUSCULTATION: clear to auscultation bilaterally Cardio: COMMON NORMALS: regular rate, regular rhythm, S1 normal heart sound present and S2 normal heart sound present RATE: regular rate RHYTHM: regular rhythm HEART SOUNDS: S1 normal heart sound present and S2 normal heart sound present GI: COMMON NORMALS: Normal to inspection, nondistended, normoactive bowel sounds present and non-tender Extremity: COMMON NORMALS: no pedal edema Neuro: COMMON NORMALS: patient oriented x3 Psych: COMMON NORMALS: mental status grossly normal Discharge Data Studies Completed and Pending Completed Studies During Hospitalization Category Date Time Status US kidney bilateral [US renal BI* 02018] Routine Ultrasound 01/12/25 17:00 Completed Pending at discharge Category Date Time Status Tacrolimus, LS/MS/MS QAM Lab 01/13/25 06:17 Received Radiology Impressions Renal Ultrasound 01/12/25 17:00 IMPRESSION: No acute findings. Laboratory Results WBC 4.92 10^3/uL (3.29-11.43) 01/13/25 02:40 RBC 3.29 10^6/uL (3.85-5.65) L 01/13/25 02:40 Hgb 10.00 g/dL (11.27-16.99) L 01/13/25 02:40 Hct 31.0 % (37-53) L 01/13/25 02:40 MCV 94.2 fl (82-101) 01/13/25 02:40 MCH 30.4 pg (27-33) 01/13/25 02:40 MCHC 32.3 g/dL (30-55) D 01/13/25 02:40 RDW 13.7 % (12.1-15.1) 01/13/25 02:40 Plt Count 148 10^3/cmm (157-399) L 01/13/25 02:40 MPV 9.3 fL (7.4-10.4) 01/13/25 02:40 Neut % (Auto) 61.8 % 01/13/25 02:40 Lymph % (Auto) 15.7 % 01/13/25 02:40 [place] % (Auto) 19.1 % 01/13/25 02:40 Eos % (Auto) 1.8 % 01/13/25 02:40 Baso % (Auto) 0.8 % 01/13/25 02:40 Neut # (Auto) 3.04 10^3/uL (1.8-7.7) 01/13/25 02:40 Lymph # (Auto) 0.8 10^3/uL (0.8-4.8) 01/13/25 02:40 [place] # (Auto) 0.9 10^3/uL (0.2-0.9) 01/13/25 02:40 Eos # (Auto) 0.1 10^3/uL (0.0-0.8) 01/13/25 02:40 Baso # (Auto) 0.0 10^3/uL (0.0-0.1) 01/13/25 02:40 Nucleated RBC % (auto) 0 % 01/13/25 02:40 Nucleated RBCs # 0.0 /100WBC 01/13/25 02:40 Sodium 142 mmol/L (136-145) 01/13/25 06:17 Potassium 4.8 mmol/L (3.5-5.1) 01/13/25 06:17 Chloride 108 mmol/L (98-107) H 01/13/25 06:17 Carbon Dioxide 25 mmol/L (22-29) 01/13/25 06:17 Anion Gap 13.8 (5-19) 01/13/25 06:17 BUN 36 mg/dL (6-20) H 01/13/25 06:17 Creatinine 2.0 mg/dL (0.7-1.2) H 01/13/25 06:17 GFR Calculation 35.5 mL/min (90-130) L 01/13/25 06:17 Glucose 118 mg/dL (65-115) H 01/13/25 06:17 POC Glucose 105 mg/dL (70-110) 01/12/25 18:29 Calculated Osmolality 303 mOsm/kg (285-295) H 01/13/25 06:17 Calcium 8.1 mg/dL (8.5-10.5) L 01/13/25 06:17 Phosphorus 3.4 mg/dL (2.5-4.5) 01/13/25 02:40 Magnesium 1.4 mg/dL (1.7-2.3) L 01/13/25 02:40 Total Bilirubin 0.2 mg/dL (0.15-1.2) 01/13/25 02:40 AST 12 U/L (0-40) 01/13/25 02:40 ALT 13 U/L (0-41) 01/13/25 02:40 Alkaline Phosphatase 98 U/L (40-130) 01/13/25 02:40 Creatine Kinase 87 U/L (39-308) 01/12/25 14:42 Total Protein 5.5 g/dL (6.6-8.7) L 01/13/25 02:40 Albumin 3.8 g/dL (3.5-5.2) 01/13/25 02:40 Globulin 1.7 g/dL (1.3-4.6) 01/13/25 02:40 Triglycerides 156 mg/dL (0-150) H 01/12/25 14:42 Cholesterol 154 mg/dL (0-200) 01/12/25 14:42 LDL Cholesterol, Calc 80 mg/dL (50-129) 01/12/25 14:42 HDL Cholesterol 43 mg/dL (60-100) L 01/12/25 14:42 LDL/HDL Ratio 1.86 RATIO (0.00-3.22) 01/12/25 14:42 Cholesterol/HDL Ratio 3.58 mg/dL (1.0-5.00) 01/12/25 14:42 Procalcitonin 0.10 ng/mL (0-0.5) 01/12/25 14:42 TSH 1.81 uIU/mL (0.27-4.20) 01/12/25 14:42 Urine Color Yellow (Yellow) 01/12/25 14:40 Urine Appearance Clear (CLEAR) 01/12/25 14:40 Urine pH 5.0 (5-7) 01/12/25 14:40 Ur Specific [place] 1.009 (1.005-1.030) 01/12/25 14:40 Urine Protein Negative (Negative) 01/12/25 14:40 Urine Glucose (UA) Negative (Normal) 01/12/25 14:40 Urine Ketones Negative (Negative) 01/12/25 14:40 Urine Blood Negative (Negative) 01/12/25 14:40 Urine Nitrate Negative (Negative) 01/12/25 14:40 Urine Bilirubin Negative (Negative) 01/12/25 14:40 Urine Urobilinogen 0.2 mg/dL (Negative) 01/12/25 14:40 Ur Leukocyte Esterase Negative (Negative) 01/12/25 14:40 Urine RBC 0-2 /hpf (0-2) 01/12/25 14:40 Urine WBC 0-5 /hpf (0-5) 01/12/25 14:40 Ur Squamous Epith Cells 0-5 /hpf (0-5) 01/12/25 14:40 Amorphous Sediment Not Reportable 01/12/25 14:40 Urine Bacteria None seen /hpf (NONE) 01/12/25 14:40 Hyaline Casts 3.30 /lpf 01/12/25 14:40 Vitals Last Vital Signs Temp 97.9 F 01/13/25 08:00 Pulse 84 01/13/25 08:00 Resp 21 H 01/13/25 08:00 BP 155/98 01/13/25 08:00 Pulse Ox 100 01/13/25 08:00 O2 Del Method Room Air 01/13/25 03:23 Discharge Plan Discharge Patient Disposition: Xfer Short-Term Hosp Condition: Stable Prescriptions: No Action ondansetron HCl 4 mg tablet 4 mg PO Q8H PRN (Reason: Nausea And Vomiting) 30 Days Qty: 30 0RF sennosides-docusate sodium [Senokot-S] 8.6-50 mg Tablet 1 tab-cap PO DAILY PRN (Reason: Constipation) prednisone 5 mg Tablet 5 mg PO DAILY sulfamethoxazole-trimethoprim [Bactrim DS] 800-160 mg Tablet See Rx Instructions .ROUTE .COMPLEX Rx Instructions: Take 1 tablet by mouth on Sunday, Sunday, and Sunday. aspirin [Aspir-81] 81 mg Tablet,Delayed Release (Dr/Ec) 81 mg PO QAM acetaminophen [Tylenol Extra Strength] 500 mg Tablet 1,000 mg PO Q6H PRN (Reason: Pain) gabapentin 100 mg Capsule 200 mg PO QPM tacrolimus 1 mg Capsule See Rx Instructions .ROUTE .COMPLEX Rx Instructions: Take 6 tablets by mouth in the morning and 5 tablets in the evening. mycophenolate sodium 360 mg Tablet,Delayed Release (Dr/Ec) 360 mg PO BID cholecalciferol (vitamin D3) [Vitamin D3] 50 mcg (2,000 unit) Tablet 50 mcg PO DAILY tramadol 50 mg tablet 50 mg PO Q6H PRN (Reason: pain) pantoprazole 40 mg tablet,delayed release (DR/EC) 40 mg PO QAM cyclobenzaprine 10 mg tablet 10 mg PO TID PRN (Reason: Muscle Spasm) sodium bicarbonate 650 mg tablet 650 mg PO BID lidocaine 5 % Adhesive Patch,Medicated 1 patch TOPICAL DAILY PRN (Reason: Pain) Rx Instructions: leave on most painful area for up to 12 hrs acyclovir 200 mg capsule 200 mg PO BID albuterol sulfate [Ventolin HFA] 90 mcg/actuation HFA aerosol inhaler 2 inh inhalation Q4H PRN (Reason: shortness of breath or wheezing) fluticasone propion-salmeterol [Wixela Inhub] 100-50 mcg/dose Blister With Device 1 inh INHALATION BID Discharge Order = DC NOW: Discharge Order (Routine); Ordered 01/13/25 Ordered By: Fortino Wagoner Referrals: Alia Sanchez MD [Primary Care Provider, Family Practice] Discharge Attestations Time Spent in Discharge Care*: greater than 30 min Status at Discharge: Cognitive status at discharge: cognitively intact, Behavioral status at discharge: cooperative, Quality Metrics Clinical Quality Measures [ No reported AMI, CVA or VTE this stay] Coding Level of Care Code 01989 Total time (in minutes) for Discharge: 45 Diagnoses Kidney transplant status Z94.0 Acute kidney injury N17.9
[2025-01-14 19:20] LABS: Tacrolimus, Highly Sensitive 13.3 mcg/L
== END 2025-01-13 09:00 | disposition short-term general hospital (02) | DRG 641 ==
LOC: ER 15:34 → CSU 18:02
PROVIDERS: Physician Assistant; Admitting Provider Internal Medicine; Emergency Provider Emergency Medicine; PCP Family Medicine; Visit Provider Family Medicine
DX: E87.5 Hyperkalemia (principal); N17.9 Acute kidney failure, unspecified; D84.821 Immunodeficiency due to drugs; Z94.0 Kidney transplant status; Z94.4 Liver transplant status; G25.1 Drug-induced tremor; T45.1X5A Adverse effect of antineoplastic and immunosuppressive drugs, initial encounter; N18.9 Chronic kidney disease, unspecified; D63.1 Anemia in chronic kidney disease; Z79.621 Long term (current) use of calcineurin inhibitor; Z79.899 Other long term (current) drug therapy; Z79.82 Long term (current) use of aspirin; Z87.891 Personal history of nicotine dependence
CPT/HCPCS: 36415; 36416; 76770; 80048; 80053; 80061; 80197; 81001; 82550; 82962; 83735; 84100; 84145; 84443; 85025; 93005; 94640; 99285; J0612; J1815; J2405; J2470; J2765; J3475; J7030; J7070; J7799; J9999

== ENCOUNTER 2025-01-19 07:52 | Outpatient (CLI) | payer OTHER, SELFPAY ==
[2025-01-19 09:14] LABS: Hematocrit 33.5 % (37-53); Hemoglobin 10.20 g/dL (11.27-16.99); Mean Corpuscular HGB Conc 30.4 g/dL (30-55); Mean Corpuscular Hemoglobin 29.3 pg (27-33); Mean Corpuscular Volume 96.3 fl (82-101); Nucleated Red Blood Cells % 0 %; Platelet Count 93 10^3/cmm (157-399); Red Blood Count 3.48 10^6/uL (3.85-5.65); White Blood Count 3.58 10^3/uL (3.29-11.43)
[2025-01-19 09:32] LABS: Alanine Aminotransferase 40 U/L (0-41); Albumin Level 4.4 g/dL (3.5-5.2); Alkaline Phosphatase 95 U/L (40-130); Aspartate Amino Transferase 22 U/L (0-40); Blood Urea Nitrogen 26 mg/dL (6-20); Calcium 8.3 mg/dL (8.5-10.5); Carbon Dioxide 22 mmol/L (22-29); Chloride 106 mmol/L (98-107); Globulin 2.1 g/dL (1.3-4.6); Glucose 90 mg/dL (65-115); Magnesium 1.6 mg/dL (1.7-2.3); Osmolality Calculated 290 mOsm/kg (285-295); Sodium 138 mmol/L (136-145); Total Protein 6.5 g/dL (6.6-8.7)
[2025-01-19 09:33] LABS: Anion Gap 14.7 (5-19); Potassium 4.7 mmol/L (3.5-5.1)
== END 2025-01-19 07:53 | disposition home or self-care (01) ==
PROVIDERS: PCP Family Medicine; Visit Provider Internal Medicine Nephrology
DX: E83.41 Hypermagnesemia (principal); Z94.0 Kidney transplant status
CPT/HCPCS: 36415; 80053; 80197; 82977; 83735; 85025

== ENCOUNTER 2025-01-26 08:08 | Outpatient (CLI) | payer OTHER, SELFPAY ==
[2025-01-26 08:50] LABS: Hematocrit 37.5 % (37-53); Hemoglobin 12.00 g/dL (11.27-16.99); Mean Corpuscular HGB Conc 32.0 g/dL (30-55); Mean Corpuscular Hemoglobin 30.5 pg (27-33); Mean Corpuscular Volume 95.2 fl (82-101); Nucleated Red Blood Cells % 0 %; Platelet Count 143 10^3/cmm (157-399); Red Blood Count 3.94 10^6/uL (3.85-5.65); White Blood Count 4.24 10^3/uL (3.29-11.43)
[2025-01-26 09:15] LABS: Alanine Aminotransferase 23 U/L (0-41); Albumin Level 4.5 g/dL (3.5-5.2); Alkaline Phosphatase 113 U/L (40-130); Anion Gap 16.3 (5-19); Aspartate Amino Transferase 13 U/L (0-40); Blood Urea Nitrogen 38 mg/dL (6-20); Calcium 8.6 mg/dL (8.5-10.5); Carbon Dioxide 22 mmol/L (22-29); Chloride 108 mmol/L (98-107); Globulin 2.5 g/dL (1.3-4.6); Glucose 96 mg/dL (65-115); Magnesium 1.8 mg/dL (1.7-2.3); Osmolality Calculated 301 mOsm/kg (285-295); Potassium 5.3 mmol/L (3.5-5.1); Sodium 141 mmol/L (136-145); Total Protein 7.0 g/dL (6.6-8.7)
== END 2025-01-26 08:09 | disposition home or self-care (01) ==
LOC: LAB 08:10
PROVIDERS: PCP Family Medicine; Visit Provider Internal Medicine Nephrology
DX: Z94.0 Kidney transplant status (principal)
CPT/HCPCS: 36415; 80053; 80197; 83735; 85025

== ENCOUNTER 2025-02-02 08:01 | Outpatient (CLI) | payer OTHER, SELFPAY ==
[2025-02-02 09:13] LABS: Hematocrit 36.3 % (37-53); Hemoglobin 11.30 g/dL (11.27-16.99); Mean Corpuscular HGB Conc 31.1 g/dL (30-55); Mean Corpuscular Hemoglobin 29.6 pg (27-33); Mean Corpuscular Volume 95.0 fl (82-101); Nucleated Red Blood Cells % 0 %; Platelet Count 137 10^3/cmm (157-399); Red Blood Count 3.82 10^6/uL (3.85-5.65); White Blood Count 3.67 10^3/uL (3.29-11.43)
[2025-02-02 09:40] LABS: Alanine Aminotransferase 20 U/L (0-41); Albumin Level 4.4 g/dL (3.5-5.2); Alkaline Phosphatase 114 U/L (40-130); Anion Gap 18.7 (5-19); Aspartate Amino Transferase 15 U/L (0-40); Blood Urea Nitrogen 28 mg/dL (6-20); Calcium 8.5 mg/dL (8.5-10.5); Carbon Dioxide 21 mmol/L (22-29); Chloride 105 mmol/L (98-107); Globulin 2.1 g/dL (1.3-4.6); Glucose 103 mg/dL (65-115); Magnesium 1.6 mg/dL (1.7-2.3); Osmolality Calculated 296 mOsm/kg (285-295); Potassium 4.7 mmol/L (3.5-5.1); Sodium 140 mmol/L (136-145); Total Protein 6.5 g/dL (6.6-8.7)
[2025-02-02 09:41] LABS: Slide Review Slide Review Perform
[2025-02-03 15:10] LABS: Tacrolimus, Highly Sensitive 8.6 mcg/L
== END 2025-02-02 08:02 | disposition home or self-care (01) ==
LOC: LAB 08:01
PROVIDERS: PCP Family Medicine; Visit Provider Internal Medicine Nephrology
DX: Z94.0 Kidney transplant status (principal); E83.41 Hypermagnesemia
CPT/HCPCS: 36415; 80053; 80197; 82977; 83735; 85025

== ENCOUNTER 2025-02-09 14:30 | Emergency (ER) | payer OTHER, SELFPAY ==
--- OUTSIDE RECORDS SUMMARY | 2023-08-14 09:30 | XMS_ITS ---
Author Organization [facility] Address [address] [place] [address] Care Team Providers Care Childcare Teacher Name Role Phone lAia Perry MD Primary Care Provider Unav ailable Jason Riversin Unavailable [phone] [place], [place] Unavailable Unavailable REASON FOR VISIT alcoholic cirrhosis, +FIT, esophageal varices Encounters Encounter Location Date Provider Diagnosis [facility] [address] [facility] [place] [address] 08/14/2023 Abodunrin Tita Plan Of Treatment No Information Progress Notes * Chase MELENDEZ LDOB: 5 (49 yo M)Acc No.[id number]:08/14/2023 History and Physical Patient: Jesusita vasquezChase Provider: Vane Rivers MD :1975 A ge:48 Y S ex:Male Date:08/14/2023 Address:[address] [place] [address] [id number] Pcp:Alia Perry MD Check Out:08:27 AM EMPLOYMENT TRAINER Subjective: * Chief Complaints: * a lcoholic cirrhosis, +FIT, esophageal varices Billing Information: * Procedure Codes: * Electronic signature of Desmond Rivers MD on 02/09/2025 at 02:36 PM EMPLOYMENT TRAINER Sign off status: Pending * Provider: Vane Rivers MD Date: 08/14/2023 Generated for Ce hazel/Jenny/Samuelsmitting on: 1 04/12/2024 02:36 PM EMPLOYMENT TRAINER
--- OUTSIDE RECORDS SUMMARY | 2023-10-03 08:30 | XMS_ITS ---
Author Organization [facility] Address [address] [place] [address] Care Team Providers Care Fur Dyer Name Role Phone Vicky DASH, Alia Primary Care Provider Unav ailable Jason Riversin Unavailable [phone] [place], [place] Unavailable Unavailable REASON FOR VISIT 1 yr f/u Alcoholic Cirrhosis w/Ascites Encounters Encounter Location Date Provider Diagnosis [facility] [address] [place] [address] 10/03/2023 Abodunrin Badcolten Plan Of Treatment No Information Progress Notes * NORA Chase LDOB: 5 (49 yo M)Acc No.[id number]:10/03/2023 Progress Notes Patient: Chase Nation Provider: Vane Rivers MD :1975 A ge:48 Y S ex:Male Date:10/03/2023 Address:[address] [place] [address] [id number] Pcp:Alia Perry MD Subjective: * Chief Complaints: * 1 yr f/u Alcoholic Cirrhosis w/Ascites Billing Information: * Procedure Codes: * Electronic signature of Desmond Rivers MD on 02/09/2025 at 02:35 PM RELAY TESTER Sign off status: Pending * Provider: Vane Rivers MD Date: 0 10/03/2023 Generated for Ce hazel/Jenny/eTransmitting on: 04/12/2024 02:35 PM RELAY TESTER
--- OUTSIDE RECORDS SUMMARY | 2023-10-03 08:30 | XMS_ITS ---
Author Organization [facility] Address [address] [facility] [place] [address] Care Team Providers Care Explosive Ordnance Handler Name Role Phone Alia Perry MD Primary Care Provider Unav ailable BadJason abelin Unavailable [phone] [place], [place] Unavailable Unavailable Cady Mora Unavailable [phone] REASON FOR VISIT 1 yr f/u Alcoholic Cirrhosis w/Ascites Encounters Encounter Location Date Provider Diagnosis [facility] [address] [facility] [place] [address] 10/03/2023 Cady Mora Plan Of Treatment No Information Progress Notes * Chase MELENDEZ LDOB: 5 (49 yo M)Acc No.[id number]:10/03/2023 Progress Notes Patient: Chase Nation Provider: Clifford Mora APRN :1975 A ge:48 Y S ex:Male Date:10/03/2023 Address:[address] [place] [address] [id number] Pcp:Alia Perry MD Subjective: * Chief Complaints: * 1 yr f/u Alcoholic Cirrhosis w/Ascites Billing Information: * Procedure Codes: * Electronic signature of JEREMY Santana on 02/09/2025 at 02:35 PM FIBRE OPTICS JOINTER Sign off status: Pending * Provider: Clifford Mora APRN Date: 0 10/03/2023 Generated for Printi ng/Faxing/eTransmitting on: 1 04/12/2024 02:35 PM FIBRE OPT[employer] JOINTER
--- OUTSIDE RECORDS SUMMARY | 2023-10-10 08:30 | XMS_ITS ---
Author Organization [facility] Address [address] [place] [address] Care Team Providers Care Tracer Clerk Name Role Phone Vicky DASH, Alia Primary Care Provider Unav ailable Jason Riversin Unavailable [phone] [place], [place] Unavailable Unavailable REASON FOR VISIT 1 yr f/u Alcoholic Cirrhosis w/Ascites Encounters Encounter Location Date Provider Diagnosis [facility] [address] [place] [address] 10/10/2023 Abodunrin [place]colten Plan Of Treatment No Information Progress Notes * NORAChase LDOB: 5 (49 yo M)Acc No.[id number]:10/10/2023 Progress Notes Patient: Chase Nation Provider: Vane Rivers MD :1975 A ge:48 Y S ex:Male Date:10/10/2023 Address:[address] [place] [address] [id number] Pcp:Alia Perry MD Subjective: * Chief Complaints: * 1 yr f/u Alcoholic Cirrhosis w/Ascites Billing Information: * Procedure Codes: * Electronic signature of Desmond Rivers MD on 02/09/2025 at 02:35 PM ASSISTANT STRENGTH COACH Sign off status: Pending * Provider: Vane Rivers MD Date: 0 10/10/2023 Generated for Demarcoi ilir/Jenny/eTransmitting on: 04/12/2024 02:35 PM ASSISTANT STRENGTH COACH
--- OUTSIDE RECORDS SUMMARY | 2024-05-16 02:50 | XMS_ITS ---
Author Organization [facility] Address [address] [place] [address] Care Team Providers Care [employer] Caretaker Name Role Phone Vicky DASH, Alia Primary Care Provider Unav ailable Tita, Jannynrin Unavailable [phone] [place], [place] Unavailable Unavailable REASON FOR VISIT esophageal varices Encounters Encounter Location Date Provider Diagnosis [facility] [address] [place] [address] 05/16/2024 Abodunrin Badcolten Plan Of Treatment No Information Progress Notes * Chase MELENDEZ LDOB: 5 (49 yo M)Acc No.[id number]:05/16/2024 History and Physical Patient: Everardo Nationith Lynda Provider: Vane Rivers MD :1975 A ge:49 Y S ex:Male Date:05/16/2024 Address:[address] [place] [address] [id number] Pcp:Alia Perry MD Subjective: * Chief Complaints: * E sophageal varices Billing Information: * Procedure Codes: * Electronic signature of Desmond Rivers MD on 02/09/2025 at 02:35 PM CERTIFIED CORPORATE TRAVEL EXECUTIVE Sign off status: Pending * Provider: Vane Rivers MD Date: 0 05/16/2024 Generated for Printi ng/Fanang/eTransmitting on: 1 04/12/2024 02:35 PM CERTIFIED CORPORATE TRAVEL EXECUTIVE
--- OUTSIDE RECORDS SUMMARY | 2024-09-22 05:00 | XMS_ITS ---
Author Organization [facility] Address [address] [place] [address] Care Team Providers Care Fire Alarm Inspector Name Role Phone Vicky DASH, Alia Primary Care Provider Unav ailable Badeyoan, Carlodunrin Unavailable [phone] [place], [place] Unavailable Unavailable REASON FOR VISIT 6 mo f/u Alcoholic Cirrhosis w/Ascites Encounters Encounter Location Date Provider Diagnosis [facility] [address] [place] [address] 09/22/2024 Abodunrin Badejo Plan Of Treatment No Information Progress Notes * UMAIRTRAYChase LDOB: 5 (49 yo M)Acc No.[id number]:09/22/2024 Progress Notes Patient: Chase Nation Provider: Vane Rivers MD :1975 A ge:49 Y S ex:Male Date:09/22/2024 Address:[address] [place], [place] [id number] Pcp:Alia Perry MD Subjective: * Chief Complaints: * 6 mo f/u Alcoholic Cirrhosis w/Ascites * Electronic signature of Desmond Rivers MD on 02/09/2025 at 02:36 PM STEAM PRESSURE CHAMBER OPERATOR Sign off status: Pending * Provider: Vane Rivers MD Date: 0 09/22/2024 Generated for Printi ng/Faxing/eTransmitting on: 1 04/12/2024 02:36 PM STEAM PRESSURE CHAMBER OPERATOR
--- OUTSIDE RECORDS SUMMARY | 2025-02-09 14:36 | XMS_ITS | Clinical Summary ---
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 Name Role Phone Unavailable Primary Care Provider [...] 11/23/2026 11/23/2016 Medical Devices Implanted Type Area Composer Teaching Artist Device Identifier Shelf Expiration Date Model / Serial / Lot Ligator Band 4 Super 7 [id number] - [id number] Implanted:Qty: 4 on 08/01/2019 by Everett Kelly MD at [facility] Other N/A: Esophagus [employer] 04/23/2020 [id number] / [id number] / [id number] Ligator Band 4 Super 7 [id number] - [id number] Implanted:Qty: 1 on 11/04/2019 by Boaz Zarate MD at [facility] Other N/A: Esophagus [employer] 06/25/2020 [id number] / / [id number] Description:7 bands implante d Ligator Band 4 Super 7 [id number] - [id number] Implanted:Qty: 1 on 12/12/2019 by Boaz Zarate MD at [facility] Other N/A: Esophagus [employer] 08/11/2020 [id number] / [id number] / [id number] Description:4 implanted 5 de ployed Insurance [facility]
--- OUTSIDE RECORDS SUMMARY | 2025-02-09 14:36 | XMS_ITS | Patient Health Record ---
Author Organization [facility] Address [address] [place] [address] Care Team Providers Care Sergeant Of Corrections Name Role Phone Alia Perry MD Primary Care Provider Moses Larkin Unavailable [phone] [place], [place] Unavailable Unavailable Edu Ricketts Unavailable [phone] Allergies No Known Allergies Reason For Referral Reason 6mo F/U-Cirrhosis EGD Diagnosis 1 Alcoholic cirrhosis of liver with ascites (K70.31) Referring Provider First Name Maria Eugenia Penau ff Referring Provider Last Name [place] Referring Provider Speciality [facility] Referred Organization [facility] Referred Provider Moses Rivers Referred Address [address],[facility] [place], [place],[address], Referral Priority Routine Medications Medication SIG (Take, Route, Frequency, Duration) Notes Start Date End Date Status Spironolactone 50 MG Tablet 1 tablet Orally Once a day; Duration: 90 days Not-Takin g Nadolol 20 MG Tablet 1 tablet Orally Onc e a day; Duration: 90 days 07/17/2023 Not-Takin g Furosemide 40 MG Tablet 1 tablet Orally Once a day; Duration: 90 days Active Pantoprazole Sodium 40 MG Tablet Delayed Release Take 1 tablet by mouth once daily; Duration: 90 Active Allopurinol 300 MG Tablet 1 tablet Orall y Once a day Active Midodrine HCl 10 MG Tablet 1 tablet Oral ly three times a day Active Asmanex (30 Metered Doses) 110 MCG/ACT Aerosol Powder Breath Activated 2 puffs in the evening Inhalation Once a day Active Lactulose 10 GM/15ML Solution 15 mL as needed Orally Once a day Active Metoclopramide HCl 5 MG Tablet 1 tablet before meals as needed Orally Twice a day Active Ondansetron 4 MG Tablet Disintegrating 1 tablet on the tongue and allow to dissolve Orally Once a day Active rifAXIMin 550 MG Tablet 1 tablet Orally Twice a day Active Reglan 10 MG Tablet 1 tablet as directed Orally once; Duration: 1 day 07/17/2023 Not-Taking Sucralfate 1 GM Tablet 1 tablet on an em pty stomach Orally Twice a day Active Social History Tobacco Use: Social History Observation Description Date Details (start date - stop date) Former Smoker NA - NA Social History Drugs/Alcohol: Social Info Question Answer Notes Alcohol Screen (Audit-C) Did you have a drink containing alcohol in the past year? No Points 0 Interpretation Negative Tobacco Use: Social Info Question Answer Notes Tobacco Control (Standard) Tobacco use: Former smoker How long has it been since you last smoked? 6-12 months Additional Details Category Social Info Options Details Drugs/Alcohol: Do you smoke marijuana? De nies Problems Problem Type SNOMED Code ICD Code Onset Dates Problem Status W/U Status Risk Notes Problem Oesophageal varices without bleeding (28230638) Secondary esophageal varices without bleeding (I85.10) Active confirmed Problem disorder of stomach (64648504) Other diseases of stomach and duodenum (K31.89) Active confirmed Problem Diverticular disease of colon (095567954) Diverticulosis of large intestine without perforation or abscess without bleeding (K57.30) Active confirmed Problem Alcoholic cirrhosis (445737894) Alcoholic cirrhosis of liver without ascites (K70.30) Active confirmed Problem Alcoholic cirrhosis (444587369) Alcoholic cirrhosis of liver with ascites (K70.31) Active confirmed Problem Portal hypertension (83299764) Portal hypertension (K76.6) Active confirmed Problem Acute blood loss anemia (183827789) Acute blood loss anemia (D62) Active confirmed Problem Chronic gouty arthritis (66111750) 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) Active confirmed Problem Umbilical hernia (004791539) Umbilical hernia without obstruction and without gangrene (K42.9) Active confirmed Problem Tobacco dependence (35504475) Tobacco dependence (F17.200) Active confirmed Problem Esophageal varices without bleeding (68487127) Esophageal varices without bleeding, unspecified esophageal varices type (I85.00) Active confirmed Problem Alcoholic cirrhosis (382199371) Alcoholic cirrhosis, unspecified whether ascites present (K70.30) Active confirmed Vital Signs Heart Rate 106 /min 03/26/2024 Temperature 98.5 degrees Fahrenheit 03/26/2024 Respiratory Rate 20 /min 03/26/2024 Height-cm 171.45 cm 03/26/2024 Oximetry 100 % 03/26/2024 Blood pressure diastolic 70 mm Hg 03/26/2024 Weight-kg 60.69 kg 03/26/2024 Height 67.5 in 03/26/2024 Blood pressure systolic 112 mm Hg 03/26/2024 Weight 133.8 lbs 03/26/2024 BMI 20.64 kg/m2 03/26/2024 Encounters Encounter Location Date Provider Diagnosis [facility] [address] [place] [address] 03/26/2024 Moses Rivers Alcoholic cirrhosis of liver with ascites K70.31 ; Acute blood loss anemia D62 ; Esophageal varices without bleeding, unspecified esophageal varices type I85.00 ; Portal hypertension K76.6 and Idiopathic chronic gout of multiple sites without tophus M1A.09X0 [facility] [address] [place] [address] [facility] [address] [place] [address] 05/13/2024 Moses Rivers Assessments Encounter Date Diagnosis (ICD Code) Assessment Notes Treatment Notes Treatment Clinical Notes Section Notes 03/26/2024 Alcoholic cirrhosis of liver with ascites (ICD-10 - K70.31) 03/26/2024 Acute blood loss anemia (ICD-10 - D62) 03/26/2024 Esophageal varices without bleeding, unspecified esophageal varices type (ICD-10 - I85.00) 03/26/2024 Portal hypertension (ICD-10 - K76.6) 03/26/2024 Idiopathic chronic gout of multiple sites without tophus (ICD-10 - M1A.09X0) 03/26/2024 Other The patient is to sign a Release of Information to obtain his complete records from the [facility] at [facility] for review. Schedule the patient for upper endoscopy for follow-up of esophageal varices and also to evaluate recent history of acute blood loss anemia requiring blood transfusion. We will see the patient back in the clinic in 6 months. Plan Of Treatment Pending Test Test Name Order Date Diagnostic Colonoscopy-10006 07/17/2023 EGD, Upper GI Diagnostic-71604 5 EGD, Upper GI Diagnostic-73607 4 Insurance Providers Payer Name Payer Address Payer Phone Subscriber Number Group Number Insured Name Patient Relationship to Insured Coverage Start Date Coverage End Date [employer] [address] [place] [address] [id number] Chase Rivero Self - patient is the insured [facility] [employer] [address] [place] [address] [phone] [id number] Chase Rivero Self - patient is the insured Medical (General) History Medical History History ICD Code Umbilical hernia Alcoholic liver cirrhosis Gout Esophageal varices Portal hypertension Ascites kidney disease Surgical History Surgery Date(Month/Year) umbilical hernia repair 2011 Variceal Banding 2019 Vasectomy testicular cyst removed 2023 Colonoscopy-polyps adenoma, hyperplastic 08/14/2023 EGD-Grade 1 Varices 08/14/2023 Hospitalization History Reason Date(Month/Year) Surgical HX Paracentesis 05/2021
--- OUTSIDE RECORDS SUMMARY | 2025-02-09 14:36 | XMS_ITS | Patient Health Record ---
Author Organization [email or web address] Address [address] [place] [address] Care Team Providers Care Regulatory Consultant Name Role Phone [facility] Suresh BLOOM Primary Care Provider Un available [place] Unavailable [phone] [place], Vendor Unavailable Unavailable Allergies No Known Allergies Reason For Referral No Information Medications Medication SIG (Take, Route, Frequency, Duration) Notes Start Date End Date Status Spironolactone 25 MG 1 tablet Orally Active Pantoprazole Sodium 20 MG 1 tablet Orally Once a day Active Nadolol 20 MG 2 tablets Orally Onc e a day Active Furosemide 20 MG 1 tablet Orally Once a day Active Allopurinol 300 MG 1 tablet Orally Once a day Active Problems Problem Type SNOMED Code ICD Code Onset Dates Problem Status W/U Status Risk Notes Problem Scrotal sebaceous cyst (65532011) Scrotal sebaceous cyst (L72.3) Active confirmed Problem Varicocele (59155395) Varicocele (I86.1) Active confirmed Problem Post-surgical wound care (125661245) Encounter for postoperative wound check (Z48.89) Active confirmed Plan Of Treatment No Information Insurance Providers Payer Name Payer Address Payer Phone Subscriber Number Group Number Insured Name Patient Relationship to Insured Coverage Start Date Coverage End Date [employer] [address] [place] [id number] Chase Melendez Self - patient is the insured Medical (General) History Medical History History ICD Code alcoholic cirrhosis depressive episodes/ anxiety espohageal varices with bleeding gout Surgical History Surgery Date(Month/Year) hernia repair esophageal band surgery Excision of scrotal sabaceous cyst
--- OUTSIDE RECORDS SUMMARY | 2025-02-09 14:36 | XMS_ITS | Clinical Summary ---
Author Organization [facility] Address [address] Attn: Epic Prelude ADT MIGUEL ELKINS [address] Care Team Providers Care Stock House Worker Name Role Phone Unavailable Primary Care Provider [...] on file Legal Sex Male 9:15 PM [employer] Gender Identity Not on file Sexual Orientation [...] (#1) 2024 Medical Devices Implanted Type Area Licensed Plumber Device Identifier Shelf Expiration Date Model / Serial / Lot Ligator Band 4 Super 7 [id number] - [id number] Implanted:Qty : 4 on 08/01/2019 by Everett Kelly MD Other N/A: Esophagus [employer] 04/23/2020 [id number] / [id number] / [id number] Ligator Band 4 Super 7 [id number] - [id number] Implanted:Qty : 1 on 11/04/2019 by Boaz Zarate MD Other N/A: Esophagus [employer] 06/25/2020 [id number] / / [id number] Description:7 bands implante d Ligator Band 4 Super 7 [id number] - [id number] Implanted:Qty : 1 on 12/12/2019 by Boaz Zarate MD Other N/A: Esophagus [employer] 08/11/2020 [id number] / [id number] / [id number] Description:4 implanted 5 de ployed
--- OUTSIDE RECORDS SUMMARY | 2025-02-09 14:37 | XMS_ITS | Clinical Summary ---
Author Organization [facility] Address [address] [place] [address] Care Team Providers Care Outside Machinist Supervisor Name Role Phone Unavailable Primary Care Provider Unavailabl e Social History Tobacco Use Types Packs/Day Years Used Date Smoking Tobacco: Never Assessed Sex and Gender Information Value Date Recorded Sex Assigned at Not on file Legal Sex Male 1:31 PM EST Gender Identity Not on file Sexual Orientation Not on file Plan of Treatment Health Maintenance Due Date Last Done Comments Hepatitis B Vaccine (1 of 3 - 19+ 3-dose series) 1993 Pneumococcal Vaccine: 50+ Ye ars (2 of 2 - PCV) 11/14/2019 11/13/2018 Colorectal Cancer Screening: Annual FOBT 05/03/2023 Colorectal Cancer Screening: Colonoscopy 05/03/2023 Colorectal Cancer Screening: Sigmoidoscopy 05/03/2023 Influenza Vaccine (#1) 2024 9, 11/25/2017, 11/23/2017, Additional history exists Pneumococcal Vaccine: Peds ( 0 to 5 Years) and At-Risk Patients (6 to 49 Years) Discontinued 11/13/[address] [place] [address] [place] [id number] Regions 1,2,3 ([employer])
--- OUTSIDE RECORDS SUMMARY | 2025-02-09 14:37 | XMS_ITS | Encounter Summary ---
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
[2025-02-09 14:56] VITALS: BP 129/87; PULSE 95; RESP 18; TEMP 37.3; O2SAT 99
--- NOTE | 2025-02-09 15:29 | XR_ITS ---
WS: [id number] Portable AP upright chest, 02/09/2025 Clinical Data: weakness Comparison: Portable chest, 05/12/2024 Findings: No nodules, masses or effusions are seen. The heart is normal. The pulmonary vascularity is not increased. No pneumonia or pneumothorax is seen. XR/XR chest 1V portable [id number] Impression: Negative chest.
--- NOTE | 2025-02-09 15:29 | W.ED.URI ---
Documented by User: SHAKIRA Jean 02/09/25 18:00 HPI - URI/Sore Throat General: Chief Complaint: General Medical Stated Complaint: sore throat, n/v, DOWNING Time Seen by Provider: 02/09/25 15:12 Source: patient and family Mode of arrival: wheelchair Limitations: no limitations History of Present Illness: Patient is a 49-year-old male with an extensive past medical history including alcoholic liver cirrhosis/hepatorenal syndrome, kidney/liver transplant among several others here for earache, weakness, sore throat, nausea/vomiting. He states he had an earache several days ago and was seen and placed on Augmentin. He states since then symptoms have worsened and now he feels generally weak, has a sore throat/trouble swallowing, and has had nausea and vomiting-he is concerned that he is unable to keep down his medications including his kidney transplant meds. No fever. Low-grade temp 99.1 upon arrival. States he follows up with [place] kidney transplant team. MD elicited complaint: sore throat and other (ear ache, weakness, N/V) Onset (ago): day(s) Consistency: constant Severity: moderate Context: other (immunocompromised) Associated symptoms: Reports ear or mastoid pain, nausea and vomiting; Deny abdominal pain, chills, chest pain, fever(s), headache(s), nasal congestion or sinus pain Treatments prior to arrival: none Related Data Home Medications ?Medication ?Instructions ?Recorded ?Confirmed fluticasone 100 mcg-salmeterol 50 1 inh inhalation BID 05/05/24 01/12/25 mcg/dose blistr powdr for inhalation (Wixela Inhub) acetaminophen 500 mg tablet 1,000 mg PO Q6H PRN Pain 01/12/25 01/12/25 (Tylenol Extra Strength) acyclovir 200 mg capsule 200 mg PO BID 01/12/25 01/12/25 albuterol sulfate 90 mcg/actuation 2 inh inhalation Q4H PRN shortness 01/12/25 01/12/25 aerosol inhaler (Ventolin HFA) of breath or wheezing aspirin 81 mg tablet,delayed 81 mg PO QAM 01/12/25 01/12/25 release cholecalciferol (vitamin D3) 50 50 mcg PO DAILY 01/12/25 01/12/25 mcg (2,000 unit) tablet (Vitamin D3) cyclobenzaprine 10 mg tablet 10 mg PO TID PRN Muscle Spasm 01/12/25 01/12/25 gabapentin 100 mg capsule 200 mg PO QPM 01/12/25 01/12/25 lidocaine 5 % topical patch 1 patch topical DAILY PRN Pain 01/12/25 01/12/25 mycophenolate sodium 360 mg 360 mg PO BID 01/12/25 01/12/25 tablet,delayed release pantoprazole 40 mg tablet,delayed 40 mg PO QAM 01/12/25 01/12/25 release prednisone 5 mg tablet 5 mg PO DAILY 01/12/25 01/12/25 sennosides 8.6 mg-docusate sodium 1 tab-cap PO DAILY PRN Constipation 01/12/25 01/12/25 50 mg tablet (Senokot-S) sodium bicarbonate 650 mg tablet 650 mg PO BID 01/12/25 01/12/25 sulfamethoxazole 800 See Rx Instructions .Route .COMPLEX 01/12/25 01/12/25 mg-trimethoprim 160 mg tablet (Bactrim DS) tacrolimus 1 mg capsule, See Rx Instructions .Route .COMPLEX 01/12/25 01/12/25 immediate-release tramadol 50 mg tablet 50 mg PO Q6H PRN pain 01/12/25 01/12/25 Previous Rx's ?Medication ?Instructions ?Recorded ondansetron HCl 4 mg tablet 4 mg PO Q8H PRN Nausea And 01/02/24 Vomiting 30 days #30 tabs Allergies Allergy/AdvReac Type Severity Reaction Status Date / Time No Known Allergies Allergy Verified 05/12/24 16:14 Review of Systems Const: Reports: body aches, fatigue and malaise; Denies: fever(s) or chills Eyes: Denies: change in vision ENMT: Reports: throat pain, odynophagia and ear or mastoid pain; Denies: uvular edema, enlarged tonsils, nasal discharge, nasal congestion or sinus pain Card: Denies: chest pain, palpitations, syncope or pre-syncope Resp: Denies: dyspnea GI: Reports: nausea and vomiting; Denies: abdominal pain, hematemesis or change in bowel habits : Denies: flank pain, dysuria or hematuria Musc: Denies: neck pain, back pain, extremity pain, extremity swelling, joint pain or joint swelling Skin/Breast: Denies: rash Neuro: Denies: headache(s), numbness in extremities, weakness in extremities, sensory changes or dizziness PFSH ED PFSH: Medical History Yfedx-pi-nalkdax kidney injury Esophageal varices Chronic hypotension Acute hyponatremia Chronic kidney disease Generalized weakness Anemia Alcoholic cirrhosis of liver Hepatorenal syndrome Cardiorenal syndrome SBP (spontaneous bacterial peritonitis) Acute hepatic failure Abdominal ascites Smoker Colitis Low oxygen saturation Enteropathy Smoking addiction Alcohol use disorder Thrombocytopenia Liver cirrhosis Hematuria Ascites due to alcoholic cirrhosis Abdominal pain 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 History of colon polyps Rectal polyp 10 and 15 cm, cecum biopsy Sigmoid colon polyp Seasonal allergies Splenomegaly Enterocolitis 2016 Surgical History History of umbilical hernia repair Status post colonoscopy with polypectomy H/O esophagogastroduodenoscopy Vasectomy status H/O left inguinal hernia repair Family History Denies family history of Cancer Social History Smoking and tobacco/nicotine status: former use of tobacco/nicotine Alcohol intake: former Substance/Drug Use: never Lives independently: Yes Housing: House Marital status: 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 Physical Exam Const: COMMON NORMALS: no acute distress, average body habitus, patient oriented x3, no limitations, healthy appearing, alert and well nourished GENERAL APPEARANCE: cooperative ORIENTATION/CONSCIOUSNESS: Yes awake, Yes oriented to person, Yes oriented to place and Yes oriented to time HENMT: COMMON NORMALS: normocephalic, atraumatic, EAC's normal and TM's normal bilaterally HEAD & SCALP: normal to inspection, normocephalic and atraumatic FACE & SINUS: normal facial exam EXTERNAL AUDITORY CANAL: EAC's normal TYMPANIC MEMBRANE: TM's normal bilaterally MOUTH: lip normal, tongue normal, Normal salivary glands and ducts present and other (vesicular ulcer noted to hard palate) THROAT: posterior oropharynx abnormal erythema; no uvular edema Eye: COMMON NORMALS: Equal, round and reactive pupils present and EOMs intact bilaterally GENERAL EYE: appearance normal, both eyes and all related structures and normal light reflex PUPIL: Yes Equal, round and reactive pupils present DIRECT OPHTHALMOSCOPY: Yes normal light reflex Neck/C-Spine: COMMON NORMALS: no lymphadenopathy Resp: COMMON NORMALS: normal respiratory effort and clear to auscultation bilaterally AUSCULTATION: clear to auscultation bilaterally Cardio: COMMON NORMALS: regular rate and regular rhythm RATE: regular rate RHYTHM: regular rhythm GI: COMMON NORMALS: Normal to inspection, nondistended, normoactive bowel sounds present, Soft to palpation, non-tender, No hepatosplenomegaly present and no masses PALPATION: Yes Soft to palpation and Yes No hepatosplenomegaly present : COMMON NORMALS: Yes no CVA tenderness BLADDER/KIDNEY EXAM: Yes no CVA tenderness Back/Pelvis: COMMON NORMALS: no CVA tenderness, thoracic and lumbar spine normal to inspection and no thoracic nor lumbar tenderness Extremity: GENERAL: Yes normal exam except as noted Neuro: ZENON COMA SCALE: document GCS findings Zenon coma scale eye opening: Spontaneous [place] coma scale verbal response: Orientated Zenon coma scale motor response: Obey commands [place] coma scale total score: 15 COMMON NORMALS: patient oriented x3, moves all extremities, no focal motor deficits and no sensory deficits noted SENSORIUM/ORIENTATION: Yes alert, Yes oriented to person, Yes oriented to place and Yes oriented to time Skin: COMMON NORMALS: no rashes or lesions noted GENERAL SKIN EXAM: no rashes or lesions noted Course Consultations: Consultation #1: Dr. Taylor-Ge[facility] transplant physician-requesting transfer to [place] Vital Signs: Vital signs: Vital Signs Temperature 99.1 F 02/09/25 14:56 Pulse Rate 89 02/09/25 18:00 Respiratory Rate 18 02/09/25 18:00 Blood Pressure 154/88 02/09/25 18:00 Pulse Oximetry 97 02/09/25 18:00 Oxygen Delivery Me thod Room Air 02/09/25 18:00 MDM - URI/Sore Throat Medical Decision Making Patient is a 49-year-old male with a history of kidney/liver transplant here for what started as an earache but has progressed to a sore throat with oral lesions, generalized weakness, nausea and vomiting. Patient states he is having a hard time keeping down his transplant prophylaxis medications including mycophenolate and tacrolimus. He also takes Lokelma powder for his hyperkalemia but is having a hard time keeping this down as well. Vital signs are stable upon arrival apart from a low-grade temp of 99.1. Blood work including a CBC and CMP show hyperkalemia at 5.9. He has had an increase to his creatinine-baseline around 2.0, now up to 2.7. UA clear. Respiratory panel collected and pending. CXR unremarkable. Spoke to Dr. Wright who feels patient may need transferred to his transplant team at [place]. I did speak to [place] transplant physician, Dr. Taylor who is wanting him transferred there. He was given medications here for his hyperkalemia including calcium gluconate and dextrose/insulin. He was also given IV fluids. Medical Records I reviewed the patient's medical records. Lab Data I reviewed the patient's lab results. 02/09/25 15:42 02/09/25 15:42 Radiology Impressions Chest X-Ray 02/09/25 15:29 Impression: Negative chest. Laboratory Results WBC 5.32 10^3/uL (3.29-11.43) 02/09/25 15:42 RBC 4.61 10^6/uL (3.85-5.65) 02/09/25 15:42 Hgb 13.70 g/dL (11.27-16.99) 02/09/25 15:42 Hct 43.3 % (37-53) 02/09/25 15:42 MCV 93.9 fl (82-101) 02/09/25 15:42 MCH 29.7 pg (27-33) 02/09/25 15:42 MCHC 31.6 g/dL (30-55) 02/09/25 15:42 RDW 13.9 % (12.1-15.1) 02/09/25 15:42 Plt Count 125 10^3/cmm (157-399) L 02/09/25 15:42 MPV 9.4 fL (7.4-10.4) 02/09/25 15:42 Neut % (Auto) 78.4 % 02/09/25 15:42 Lymph % (Auto) 5.3 % 02/09/25 15:42 Dav[place] % (Auto) 14.7 % 02/09/25 15:42 Eos % (Auto) 0.2 % 02/09/25 15:42 Baso % (Auto) 0.6 % 02/09/25 15:42 Neut # (Auto) 4.18 10^3/uL (1.8-7.7) 02/09/25 15:42 Lymph # (Auto) 0.3 10^3/uL (0.8-4.8) L 02/09/25 15:42 Daviess # (Auto) 0.8 10^3/uL (0.2-0.9) 02/09/25 15:42 Eos # (Auto) 0.0 10^3/uL (0.0-0.8) 02/09/25 15:42 Baso # (Auto) 0.0 10^3/uL (0.0-0.1) 02/09/25 15:42 Nucleated RBC % (auto) 0 % 02/09/25 15:42 Nucleated RBCs # 0.0 /100WBC 02/09/25 15:42 Sodium 135 mmol/L (136-145) L 02/09/25 15:42 Potassium 5.9 mmol/L (3.5-5.1) H 02/09/25 15:42 Chloride 99 mmol/L (98-107) 02/09/25 15:42 Carbon Dioxide 21 mmol/L (22-29) L 02/09/25 15:42 Anion Gap 20.9 (5-19) H 02/09/25 15:42 BUN 37 mg/dL (6-20) H 02/09/25 15:42 Creatinine 2.7 mg/dL (0.7-1.2) H 02/09/25 15:42 GFR Calculation 25.1 mL/min (90-130) L 02/09/25 15:42 Glucose 107 mg/dL (65-115) 02/09/25 15:42 POC Glucose 117 mg/dL (70-110) H 02/09/25 18:18 Calculated Osmolality 289 mOsm/kg (285-295) 02/09/25 15:42 Calcium 9.1 mg/dL (8.5-10.5) 02/09/25 15:42 Magnesium 1.8 mg/dL (1.7-2.3) 02/09/25 15:42 Total Bilirubin 0.8 mg/dL (0.15-1.2) 02/09/25 15:42 AST 18 U/L (0-40) 02/09/25 15:42 ALT 19 U/L (0-41) 02/09/25 15:42 Alkaline Phosphatase 141 U/L (40-130) H 02/09/25 15:42 Total Protein 7.7 g/dL (6.6-8.7) 02/09/25 15:42 Albumin 5.0 g/dL (3.5-5.2) 02/09/25 15:42 Globulin 2.7 g/dL (1.3-4.6) 02/09/25 15:42 Urine Color Yellow (Yellow) 02/09/25 15:55 Urine Appearance Clear (CLEAR) 02/09/25 15:55 Urine pH 5.0 (5-7) 02/09/25 15:55 Ur Specific Daisy 1.021 (1.005-1.030) 02/09/25 15:55 Urine Protein 1+ (Negative) A 02/09/25 15:55 Urine Glucose (UA) Negative (Normal) 02/09/25 15:55 Urine Ketones Trace (Negative) 02/09/25 15:55 Urine Blood Negative (Negative) 02/09/25 15:55 Urine Nitrate Negative (Negative) 02/09/25 15:55 Urine Bilirubin Negative (Negative) 02/09/25 15:55 Urine Urobilinogen 1.0 mg/dL (Negative) 02/09/25 15:55 Ur Leukocyte Esterase Negative (Negative) 02/09/25 15:55 Urine RBC 0-2 /hpf (0-2) 02/09/25 15:55 Urine WBC 0-5 /hpf (0-5) 02/09/25 15:55 Ur Squamous Epith Cells 0-5 /hpf (0-5) 02/09/25 15:55 Amorphous Sediment Not Reportable 02/09/25 15:55 Urine Bacteria None seen /hpf (NONE) 02/09/25 15:55 Hyaline Casts 3.71 /lpf 02/09/25 15:55 Adenovirus (PCR) Not detected (NOT DETECT) 02/09/25 15:52 C. pneumoniae DNA (PCR) Not detected (NOT DETECT) 02/09/25 15:52 Coronavirus 229E (PCR) Not detected (NOT DETECT) 02/09/25 15:52 Human Metapneumovir PCR Not detected (NOT DETECT) 02/09/25 15:52 Influenza A (H1) PCR Not detected (NOT DETECT) 02/09/25 15:52 Influ A (H1/09) PCR Not detected (NOT DETECT) 02/09/25 15:52 Influenza A (H3) PCR Not detected (NOT DETECT) 02/09/25 15:52 Influenza Type A (PCR) Not detected (NOT DETECT) 02/09/25 15:52 Influenza Type B (PCR) Not detected (NOT DETECT) 02/09/25 15:52 M. pneumoniae (PCR) Not detected (NOT DETECT) 02/09/25 15:52 Parainfluenza 1 (PCR) Not detected (NOT DETECT) 02/09/25 15:52 Parainfluenza 2 (PCR) Not detected (NOT DETECT) 02/09/25 15:52 Parainfluenza 3 (PCR) Not detected (NOT DETECT) 02/09/25 15:52 Parainfluenza 4 (PCR) Not detected (NOT DETECT) 02/09/25 15:52 RSV Type A (PCR) Not detected (NOT DETECT) 02/09/25 15:52 RSV Type B (PCR) Not detected (NOT DETECT) 02/09/25 15:52 Entero/Rhino (PCR) Not detected (NOT DETECT) 02/09/25 15:52 SARS-CoV-2 (PCR) Not detected (NOT DETECT) 02/09/25 15:52 All radiology interpretation(s) finalized by discharge Discharge Plan Discharge Patient Disposition: Xfer Short-Term Hosp Clinical Impression: Liver transplant recipient, Kidney transplant status, Hyperkalemia, LAQUITA (acute kidney injury) Condition: Stable Referrals: Alia Sanchez MD [Primary Care Provider, [facility]] Print Language: Italian Coding Level of Care Code ED Client Manager Large Law for Chg Fwd Documented by User: Garth Wright DO 02/09/25 18:40 HPI - URI/Sore Throat General: Chief Complaint: General Medical Stated Complaint: sore throat, n/v, DOWNING Time Seen by Provider: 02/09/25 15:12 Related Data Home Medications ?Medication ?Instructions ?Recorded ?Confirmed fluticasone 100 mcg-salmeterol 50 1 inh inhalation BID 05/05/24 01/12/25 mcg/dose blistr powdr for inhalation (Wixela Inhub) acetaminophen 500 mg tablet 1,000 mg PO Q6H PRN Pain 01/12/25 01/12/25 (Tylenol Extra Strength) acyclovir 200 mg capsule 200 mg PO BID 01/12/25 01/12/25 albuterol sulfate 90 mcg/actuation 2 inh inhalation Q4H PRN shortness 01/12/25 01/12/25 aerosol inhaler (Ventolin HFA) of breath or wheezing aspirin 81 mg tablet,delayed 81 mg PO QAM 01/12/25 01/12/25 release cholecalciferol (vitamin D3) 50 50 mcg PO DAILY 01/12/25 01/12/25 mcg (2,000 unit) tablet (Vitamin D3) cyclobenzaprine 10 mg tablet 10 mg PO TID PRN Muscle Spasm 01/12/25 01/12/25 gabapentin 100 mg capsule 200 mg PO QPM 01/12/25 01/12/25 lidocaine 5 % topical patch 1 patch topical DAILY PRN Pain 01/12/25 01/12/25 mycophenolate sodium 360 mg 360 mg PO BID 01/12/25 01/12/25 tablet,delayed release pantoprazole 40 mg tablet,delayed 40 mg PO QAM 01/12/25 01/12/25 release prednisone 5 mg tablet 5 mg PO DAILY 01/12/25 01/12/25 sennosides 8.6 mg-docusate sodium 1 tab-cap PO DAILY PRN Constipation 01/12/25 01/12/25 50 mg tablet (Senokot-S) sodium bicarbonate 650 mg tablet 650 mg PO BID 01/12/25 01/12/25 sulfamethoxazole 800 See Rx Instructions .Route .COMPLEX 01/12/25 01/12/25 mg-trimethoprim 160 mg tablet (Bactrim DS) tacrolimus 1 mg capsule, See Rx Instructions .Route .COMPLEX 01/12/25 01/12/25 immediate-release tramadol 50 mg tablet 50 mg PO Q6H PRN pain 01/12/25 01/12/25 Previous Rx's ?Medication ?Instructions ?Recorded ondansetron HCl 4 mg tablet 4 mg PO Q8H PRN Nausea And 01/02/24 Vomiting 30 days #30 tabs Allergies Allergy/AdvReac Type Severity Reaction Status Date / Time No Known Allergies Allergy Verified 05/12/24 16:14 PFSH ED PFSH: Medical History Ilbaj-lt-wlugfli kidney injury Esophageal varices Chronic hypotension Acute hyponatremia Chronic kidney disease Generalized weakness Anemia Alcoholic cirrhosis of liver Hepatorenal syndrome Cardiorenal syndrome SBP (spontaneous bacterial peritonitis) Acute hepatic failure Abdominal ascites Smoker Colitis Low oxygen saturation Enteropathy Smoking addiction Alcohol use disorder Thrombocytopenia Liver cirrhosis Hematuria Ascites due to alcoholic cirrhosis Abdominal pain 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 History of colon polyps Rectal polyp 10 and 15 cm, cecum biopsy Sigmoid colon polyp Seasonal allergies Splenomegaly Enterocolitis 2016 Surgical History History of umbilical hernia repair Status post colonoscopy with polypectomy H/O esophagogastroduodenoscopy Vasectomy status H/O left inguinal hernia repair Family History Denies family history of Cancer Social History Smoking and tobacco/nicotine status: former use of tobacco/nicotine Alcohol intake: former Substance/Drug Use: never Lives independently: Yes Housing: House 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 Agree with assessment and plan. Is a 49-year-old male with a history of kidney/liver transplant here for what started as an earache but has progressed to a sore throat with oral lesions, generalized weakness, nausea and vomiting. Patient states he is having a hard time keeping down his transplant prophylaxis medications including mycophenolate and tacrolimus. He also takes Lokelma powder for his hyperkalemia but is having a hard time keeping this down as well. Vital signs are stable upon arrival apart from a low-grade temp of 99.1. Blood work including a CBC and CMP show hyperkalemia at 5.9. He has had an increase to his creatinine-baseline around 2.0, now up to 2.7. UA clear. Respiratory panel collected and pending. CXR unremarkable. Spoke to Dr. Wright who feels patient may need transferred to his transplant team at [place]. I did speak to [place] transplant physician, Dr. Taylor who is wanting him transferred [facility]. He was given medications here for his hyperkalemia including calcium gluconate and dextrose/insulin. He was also given IV fluids. Lab Data 02/09/25 15:42 02/09/25 15:42 Radiology Impressions Chest X-Ray 02/09/25 15:29 Impression: Negative chest. Laboratory Results WBC 5.32 10^3/uL (3.29-11.43) 02/09/25 15:42 RBC 4.61 10^6/uL (3.85-5.65) 02/09/25 15:42 Hgb 13.70 g/dL (11.27-16.99) 02/09/25 15:42 Hct 43.3 % (37-53) 02/09/25 15:42 MCV 93.9 fl (82-101) 02/09/25 15:42 MCH 29.7 pg (27-33) 02/09/25 15:42 MCHC 31.6 g/dL (30-55) 02/09/25 15:42 RDW 13.9 % (12.1-15.1) 02/09/25 15:42 Plt Count 125 10^3/cmm (157-399) L 02/09/25 15:42 MPV 9.4 fL (7.4-10.4) 02/09/25 15:42 Neut % (Auto) 78.4 % 02/09/25 15:42 Lymph % (Auto) 5.3 % 02/09/25 15:42 [place] % (Auto) 14.7 % 02/09/25 15:42 Eos % (Auto) 0.2 % 02/09/25 15:42 Baso % (Auto) 0.6 % 02/09/25 15:42 Neut # (Auto) 4.18 10^3/uL (1.8-7.7) 02/09/25 15:42 Lymph # (Auto) 0.3 10^3/uL (0.8-4.8) L 02/09/25 15:42 [place] # (Auto) 0.8 10^3/uL (0.2-0.9) 02/09/25 15:42 Eos # (Auto) 0.0 10^3/uL (0.0-0.8) 02/09/25 15:42 Baso # (Auto) 0.0 10^3/uL (0.0-0.1) 02/09/25 15:42 Nucleated RBC % (auto) 0 % 02/09/25 15:42 Nucleated RBCs # 0.0 /100WBC 02/09/25 15:42 Sodium 135 mmol/L (136-145) L 02/09/25 15:42 Potassium 5.9 mmol/L (3.5-5.1) H 02/09/25 15:42 Chloride 99 mmol/L (98-107) 02/09/25 15:42 Carbon Dioxide 21 mmol/L (22-29) L 02/09/25 15:42 Anion Gap 20.9 (5-19) H 02/09/25 15:42 BUN 37 mg/dL (6-20) H 02/09/25 15:42 Creatinine 2.7 mg/dL (0.7-1.2) H 02/09/25 15:42 GFR Calculation 25.1 mL/min (90-130) L 02/09/25 15:42 Glucose 107 mg/dL (65-115) 02/09/25 15:42 POC Glucose 117 mg/dL (70-110) H 02/09/25 18:18 Calculated Osmolality 289 mOsm/kg (285-295) 02/09/25 15:42 Calcium 9.1 mg/dL (8.5-10.5) 02/09/25 15:42 Magnesium 1.8 mg/dL (1.7-2.3) 02/09/25 15:42 Total Bilirubin 0.8 mg/dL (0.15-1.2) 02/09/25 15:42 AST 18 U/L (0-40) 02/09/25 15:42 ALT 19 U/L (0-41) 02/09/25 15:42 Alkaline Phosphatase 141 U/L (40-130) H 02/09/25 15:42 Total Protein 7.7 g/dL (6.6-8.7) 02/09/25 15:42 Albumin 5.0 g/dL (3.5-5.2) 02/09/25 15:42 Globulin 2.7 g/dL (1.3-4.6) 02/09/25 15:42 Urine Color Yellow (Yellow) 02/09/25 15:55 Urine Appearance Clear (CLEAR) 02/09/25 15:55 Urine pH 5.0 (5-7) 02/09/25 15:55 Ur Specific Daisy 1.021 (1.005-1.030) 02/09/25 15:55 Urine Protein 1+ (Negative) A 02/09/25 15:55 Urine Glucose (UA) Negative (Normal) 02/09/25 15:55 Urine Ketones Trace (Negative) 02/09/25 15:55 Urine Blood Negative (Negative) 02/09/25 15:55 Urine Nitrate Negative (Negative) 02/09/25 15:55 Urine Bilirubin Negative (Negative) 02/09/25 15:55 Urine Urobilinogen 1.0 mg/dL (Negative) 02/09/25 15:55 Ur Leukocyte Esterase Negative (Negative) 02/09/25 15:55 Urine RBC 0-2 /hpf (0-2) 02/09/25 15:55 Urine WBC 0-5 /hpf (0-5) 02/09/25 15:55 Ur Squamous Epith Cells 0-5 /hpf (0-5) 02/09/25 15:55 Amorphous Sediment Not Reportable 02/09/25 15:55 Urine Bacteria None seen /hpf (NONE) 02/09/25 15:55 Hyaline Casts 3.71 /lpf 02/09/25 15:55 Adenovirus (PCR) Not detected (NOT DETECT) 02/09/25 15:52 C. pneumoniae DNA (PCR) Not detected (NOT DETECT) 02/09/25 15:52 Coronavirus 229E (PCR) Not detected (NOT DETECT) 02/09/25 15:52 Human Metapneumovir PCR Not detected (NOT DETECT) 02/09/25 15:52 Influenza A (H1) PCR Not detected (NOT DETECT) 02/09/25 15:52 Influ A (H1/09) PCR Not detected (NOT DETECT) 02/09/25 15:52 Influenza A (H3) PCR Not detected (NOT DETECT) 02/09/25 15:52 Influenza Type A (PCR) Not detected (NOT DETECT) 02/09/25 15:52 Influenza Type B (PCR) Not detected (NOT DETECT) 02/09/25 15:52 M. pneumoniae (PCR) Not detected (NOT DETECT) 02/09/25 15:52 Parainfluenza 1 (PCR) Not detected (NOT DETECT) 02/09/25 15:52 Parainfluenza 2 (PCR) Not detected (NOT DETECT) 02/09/25 15:52 Parainfluenza 3 (PCR) Not detected (NOT DETECT) 02/09/25 15:52 Parainfluenza 4 (PCR) Not detected (NOT DETECT) 02/09/25 15:52 RSV Type A (PCR) Not detected (NOT DETECT) 02/09/25 15:52 RSV Type B (PCR) Not detected (NOT DETECT) 02/09/25 15:52 Entero/Rhino (PCR) Not detected (NOT DETECT) 02/09/25 15:52 SARS-CoV-2 (PCR) Not detected (NOT DETECT) 02/09/25 15:52 Discharge Plan Discharge Patient Disposition: Xfer Short-Term Hosp Clinical Impression: Liver transplant recipient, Kidney transplant status, Hyperkalemia, LAQUITA (acute kidney injury) Condition: Stable Referrals: Alia Sanchez MD [Primary Care Provider, Family Practice] Print Language: Italian Coding Level of Care Code ED Client Manager Large Law for Deniag Maribel
[2025-02-09 16:00] LABS: Hematocrit 43.3 % (37-53); Hemoglobin 13.70 g/dL (11.27-16.99); Mean Corpuscular HGB Conc 31.6 g/dL (30-55); Mean Corpuscular Hemoglobin 29.7 pg (27-33); Mean Corpuscular Volume 93.9 fl (82-101); Nucleated Red Blood Cells % 0 %; Platelet Count 125 10^3/cmm (157-399); Red Blood Count 4.61 10^6/uL (3.85-5.65); White Blood Count 5.32 10^3/uL (3.29-11.43)
[2025-02-09 16:07] LABS: Alanine Aminotransferase 19 U/L (0-41); Albumin Level 5.0 g/dL (3.5-5.2); Alkaline Phosphatase 141 U/L (40-130); Anion Gap 20.9 (5-19); Aspartate Amino Transferase 18 U/L (0-40); Blood Urea Nitrogen 37 mg/dL (6-20); Calcium 9.1 mg/dL (8.5-10.5); Carbon Dioxide 21 mmol/L (22-29); Chloride 99 mmol/L (98-107); Globulin 2.7 g/dL (1.3-4.6); Glucose 107 mg/dL (65-115); Osmolality Calculated 289 mOsm/kg (285-295); Potassium 5.9 mmol/L (3.5-5.1); Sodium 135 mmol/L (136-145); Total Protein 7.7 g/dL (6.6-8.7)
[2025-02-09 16:17] VITALS: BP 121/90; PULSE 91; RESP 18; O2SAT 99
[2025-02-09 16:26] LABS: Glucose Urine UA Negative (Normal); Nitrate Urine Negative (Negative); Specific Gravity, Urine 1.021 (1.005-1.030)
[2025-02-09 16:31] LABS: Add Urine Microscopic? YES
--- NOTE | 2025-02-09 16:41 | ECG_ITS ---
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
[2025-02-09 16:50] LABS: Magnesium 1.8 mg/dL (1.7-2.3)
[2025-02-09] MEDS: calcium gluconate 0.9% NaCL 1 GM/50 ML PREMIX IV (16:57)
[2025-02-09] MEDS: ondansetron 2 mg/ML SDV 2 mL 4 MG IVP (17:31)
[2025-02-09] MEDS: morphine 4 mg/mL SDV 1 mL IVP (17:31)
[2025-02-09 17:49] LABS: Coronavirus 229E,HKU1,NL63,OC4 Not Detected (NOT DETECT); Parainfluenza Virus Type 1 Not Detected (NOT DETECT); Parainfluenza Virus Type 2 Not Detected (NOT DETECT); Parainfluenza Virus Type 3 Not Detected (NOT DETECT); Parainfluenza Virus Type 4 Not Detected (NOT DETECT); SARS-COV-2 Not Detected (NOT DETECT)
[2025-02-09 18:00] VITALS: BP 154/88; PULSE 89; RESP 18; O2SAT 97
[2025-02-09] MEDS: morphine 4 mg/mL SDV 1 mL 2 MG IVP (20:24)
[2025-02-11 15:40] LABS: Tacrolimus, Highly Sensitive 10.7 mcg/L
== END 2025-02-09 20:50 | disposition short-term general hospital (02) ==
PROVIDERS: Emergency Provider Physician Assistant; PCP Family Medicine
DX: Z94.4 Liver transplant status (principal); Z94.0 Kidney transplant status; E87.5 Hyperkalemia; N17.9 Acute kidney failure, unspecified; Z79.82 Long term (current) use of aspirin; Z11.52 Encounter for screening for COVID-19; Z87.891 Personal history of nicotine dependence; N18.9 Chronic kidney disease, unspecified
CPT/HCPCS: 36415; 36416; 71045; 80053; 80197; 81001; 82962; 83735; 85025; 87040; 87486; 87581; 87633; 93005; 96361; 96365; 96366; 96375; 96376; 99285; J0612; J2270; J2405; J7030; J7060; J7799